=== PATIENT | male | born 1940 | race Caucasian/White ===

== ENCOUNTER → 2016-08-25 | Day surgery (SDC) | payer OTHER ==
[2016-08-17 13:20] VITALS: BMI 26.0
[~2016-08-25] VITALS: Ht 182.9 cm; Wt 88.6 kg
[~2016-08-25] MED LIST: ASPCH81X PO; ASTN; B-COTAB18 PO; CHOL1TAB42 PO; CMD5 PO; CMD75 PO; DICL1GEL12 EXT; FLUT0.15 NAE; GABA-113 PO; HYDR-5688 PO; IBUP-103 PO; KRIL1000 PO; LIDOCAINE HCL 2% 2 ML VIAL (20MG/ML) ONE; LNX125 PO; LPR25 PO; MAGN1CAP2 PO; MULT-506 PO; NRN300 PO; ONDANSETRON INJ 2 MG/ML 2 ML VIAL IV PRN; PRED-301 PO; PRED10TA PO; PROPOFOL IV EMULSION 10 MG/ML 20 ML VIAL IV ONE; QUIN1CAP5 PO; ROSU5TAB PO; TAMS0.4C38 PO
--- NOTE | 2016-08-25 09:06 | Endo History and Physical ---
History & Physical Date of Service: Aug 25, 2016. Chief Complaint: Colon polyp surveillance Referring Physician: Dr. Aponte History of Present Illness Patient with a history of colon polyps referred for a surveillance colonoscopy today. Notes intermitant ruq pain similar to the pain he had prior to his cholecystectomy many years ago. 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 REMEMBER, 08/17/16) Current Medications Reported Home Medications Medications Dose Route/Sig Max Daily Dose Days Date Category Vitamin D (Cholecalciferol) 5,000 Unit Tab 1 Tab PO QAM 08/17/16 Reported Vitamin B Complex (B-Complex Vitamins) 1 Tab Tab 1 Tab PO QAM 08/17/16 Reported Magnesium (Magnesium Oxide (Mg Supplement) 400 Mg Cap 1 Cap PO QAM 08/17/16 Reported Flonase Allergy Relief (Fluticasone Propionate (Nasal)) 50 Mcg/Act Spr 1 [place] REILLY DAILY PRN 08/17/16 Reported Astelin Nasal [place] (Azelastine Hcl) 200 Sprays/30 Ml [place] 1-2 Sprays NA BID PRN 08/17/16 Reported Quinine Sulfate 324 Mg Cap 324 Mg PO HS PRN 08/17/16 Reported Multivitamin (Multivitamins) Tab 1 Tab PO QAM 08/17/16 Reported Voltaren 1% Top Gel (Diclofenac Sodium (Topical)) 1 % Gel 1 Dose EXT DIRECTED PRN 08/17/16 Reported Digoxin 0.125 Mg Tab 1 Tab PO HS 08/17/16 Reported Aspirin Chewable (Aspirin) 81 Mg Chew 81 Mg PO QAM 08/17/16 Reported Flomax (Tamsulosin Hcl) 0.4 Mg Cap 0.4 Mg PO DAILY PRN 08/05/15 Reported Krill Oil 1 Cap Cap 1 Cap PO QAM 08/05/15 Reported Lopressor (Metoprolol Tartrate) 25 Mg Tab 25 Mg PO BID 10/16/13 Reported Vital Signs Weight (Kilograms): 88.64 Height (Feet): 6 Height (Inches): 0 Physical Exam General Appearance: no apparent distress Respiratory/Chest: Auscultation: breath sounds normal Cardiovascular: Heart Auscultation: RRR Abdomen: Inspection & Palpation: soft, RUQ tenderness Assessment and Plan Colonoscopy today for evaluation of a history of colon polyps. We have discussed the risks to include bleeding, infection, perforation, pain, and missed polyps.
[2016-08-25 09:07] VITALS: Ht 182.9 cm; Wt 88.6 kg
--- NOTE | 2016-08-25 10:07 | Discharge Instructions ---
Endoscopy Patient Instructions Date / Procedure(s) Performed Aug 25, 2016. Colonoscopy Allergy Information Coded Allergies: Sulfa Drugs (Verified Allergy, Unknown, ? REMEMBER, 08/17/16) Discharge Date / Findings Aug 25, 2016. 4 colon polyps Internal hemorrhoids Diverticulosis of the colon Medication Instructions Stopped Medication(s): ASPRIN AND KRILL OIL Reported Home Medications Medications Dose Route/Sig Max Daily Dose Days Date Category Vitamin D (Cholecalciferol) 5,000 Unit Tab 1 Tab PO QAM 08/17/16 Reported Vitamin B Complex (B-Complex Vitamins) 1 Tab Tab 1 Tab PO QAM 08/17/16 Reported Magnesium (Magnesium Oxide (Mg Supplement) 400 Mg Cap 1 Cap PO QAM 08/17/16 Reported Flonase Allergy Relief (Fluticasone Propionate (Nasal)) 50 Mcg/Act Spr 1 [place] REILLY DAILY PRN 08/17/16 Reported Astelin Nasal [place] (Azelastine Hcl) 200 Sprays/30 Ml [place] 1-2 Sprays NA BID PRN 08/17/16 Reported Quinine Sulfate 324 Mg Cap 324 Mg PO HS PRN 08/17/16 Reported Multivitamin (Multivitamins) Tab 1 Tab PO QAM 08/17/16 Reported Voltaren 1% Top Gel (Diclofenac Sodium (Topical)) 1 % Gel 1 Dose EXT DIRECTED PRN 08/17/16 Reported Digoxin 0.125 Mg Tab 1 Tab PO HS 08/17/16 Reported Aspirin Chewable (Aspirin) 81 Mg Chew 81 Mg PO QAM 08/17/16 Reported Flomax (Tamsulosin Hcl) 0.4 Mg Cap 0.4 Mg PO DAILY PRN 08/05/15 Reported Krill Oil 1 Cap Cap 1 Cap PO QAM 08/05/15 Reported Lopressor (Metoprolol Tartrate) 25 Mg Tab 25 Mg PO BID 10/16/13 Reported Provider Instructions Activity Restrictions - No exercising or heavy lifting for 24 hours. - Do not drink alcohol the day of the procedure. - Do not drive a car or operate machinery until the day after the procedure. - Do not make any important decisions or sign important papers in 24 hours after the procedure. Following Day: - Return to full activity which may include returning to work/school. Diet Start your diet with liquids and light foods (jello, soup, juice, toast). Then eat your usual diet if not nauseated. Treatment For Common After Affects For mild abdominal pain, bloating, or excessive gas: - Rest - Eat lightly - Lie on right side Follow-Up Information Await pathology results Repeat colonoscopy in 5 years CMP and abdominal ultrasound ordered for evaaluation for abdominal pain. Anesthesia Information What You Should Know You have had a procedure that required some medicine to reduce anxiety and discomfort. This treatment is called moderate sedation. After receiving the treatment, you may be sleepy, but you will be able to breathe on your own. The effects of the treatment may last for several hours. Follow these instructions along with Activity/Diet recommendations noted above: * Do NOT do anything where dizziness or clumsiness would be dangerous. * Rest quietly at home today, then you can be up and about tomorrow. * Have a responsible person stay with you the rest of today. * You may have had an I.V. today. If so, you may take the dressing off later today. Recommendations Call your doctor if: * Trouble breathing * Continuous vomiting for more than 24 hours * Temperature above 101 degrees * Severe abdominal pain or bloating * Pain not relieved by pain medicine ordered * There is increased drainage or redness from any incision * A large amount of rectal bleeding greater than 2-3 tablespoons. (If you had a polyp/s removed or have hemorrhoids, a small amount of blood - from the rectum is to be expected.) * You have any unanswered questions or concerns. IN THE EVENT OF A SERIOUS EMERGENCY, GO TO THE NEAREST EMERGENCY ROOM Your discharge instructions were prepared by provider Angy Beard. Patient Instructions Signature Page Raghavendra Gramajo Patient (or Guardian) Signature/Date: I have read and understand the instructions given to me by my caregivers. Caregiver/RN/Doctor Signature/Date: The above-named patient and/or guardian has received patient instructions on this date. + Original Patient Signature Page (only) stays with chart. Please make copy for patient.
[2016-08-25 10:36] VITALS: BP 128/66; PULSE 65; O2SAT 99
--- NOTE | 2016-08-25 11:20 | Anesthesiology Progress Note ---
Anesthesia Post Op Note Date & Time Aug 25, 2016 at 11:20 Vital Signs Pain Intensity: 0 Vital Signs Past 12 Hours Date Time Temp Pulse Resp B/P Pulse Ox O2 Delivery O2 Flow Rate FiO2 08/25/16 10:36 65 20 128/66 99 Room Air 08/25/16 10:20 65 20 158/82 98 Room Air 08/25/16 10:06 83 20 114/61 100 Room Air 08/25/16 09:18 36.4 77 20 113/71 94 Room Air Notes Mental Status: alert / awake / arousable Nausea / Vomiting: adequately controlled Pain: adequately controlled Airway Patency, RR, SpO2: stable & adequate BP & HR: stable & adequate Hydration State: stable & adequate Anesthetic Complications: no major complications apparent
--- NOTE | 2016-08-26 00:45 | GI REPORT ---
Procedure Date: 08/25/2016 9:25 AM Procedure: Colonoscopy Indications: High risk colon cancer surveillance: Personal history of colonic polyps Medicines: Monitored Anesthesia Care Complications: No immediate complications. Estimated blood loss: Minimal. Estimated Blood Loss: Estimated blood loss was minimal. Procedure: Pre-Anesthesia Assessment: - Prior to the procedure, a History and Physical was performed, and patient medications, allergies and sensitivities were reviewed. The patient's tolerance of previous anesthesia was reviewed. - The risks and benefits of the procedure and the sedation options and risks were discussed with the patient. All questions were answered and informed consent was obtained. - Patient identification and proposed procedure were verified prior to the procedure by the physician, the nurse and the at risk specialist. The procedure was verified in the procedure room. - Pre-procedure physical examination revealed no contraindications to sedation. - ASA Grade Assessment: III - A patient with severe systemic disease. - After reviewing the risks and benefits, the patient was deemed in satisfactory condition to undergo the procedure. - The anesthesia plan was to use general anesthesia. - Immediately prior to administration of medications, the patient was re-assessed for adequacy to receive sedatives. - The heart rate, respiratory rate, oxygen saturations, blood pressure, adequacy of pulmonary ventilation, and response to care were monitored throughout the procedure. - The physical status of the patient was re-assessed after the procedure. After I obtained informed consent, the scope was passed under direct vision. Throughout the procedure, the patient's blood pressure, pulse, and oxygen saturations were monitored continuously. The scope was introduced through the anus and advanced to the cecum, identified by appendiceal orifice and ileocecal valve. The colonoscopy was performed without difficulty. The patient tolerated the procedure well. The quality of the bowel preparation was good. Findings: The perianal and digital rectal examinations were normal. Pertinent negatives include normal sphincter tone. A 4 mm polyp was found in the cecum. The polyp was sessile. The polyp was removed with a cold snare. Resection and retrieval were complete. Estimated blood loss was minimal. A 10 mm polyp was found in the ascending colon. The polyp was sessile. The polyp was removed with a hot snare. Resection and retrieval were complete. Estimated blood loss was minimal. A 6 mm polyp was found in the ascending colon. The polyp was sessile. The polyp was removed with a cold snare. Resection and retrieval were complete. Estimated blood loss was minimal. A 5 mm polyp was found in the rectum. The polyp was sessile. The polyp was removed with a hot snare. The polyp was removed with a cold snare. Resection and retrieval were complete. Estimated blood loss was minimal. Internal hemorrhoids were found during retroflexion. The hemorrhoids were mild. Many medium-mouthed diverticula were found in the sigmoid colon. The exam was otherwise without abnormality. Impression: - One 4 mm polyp in the cecum, removed with a cold snare. Resected and retrieved. - One 10 mm polyp in the ascending colon, removed with a hot snare. Resected and retrieved. - One 6 mm polyp in the ascending colon, removed with a cold snare. Resected and retrieved. - One 5 mm polyp in the rectum, removed with a hot snare and removed with a cold snare. Resected and retrieved. - Internal hemorrhoids. - Mild diverticulosis in the sigmoid colon. - The examination was otherwise normal. Recommendation: - Discharge patient to home (ambulatory). - Advance diet as tolerated today. - Repeat colonoscopy in 5 years for surveillance based on pathology results. Angy Beard D.O. Angy Beard DO 08/25/2016 10:10:39 AM This report has been signed electronically. Note Initiated On: 08/25/2016 9:25 AM I attest to the content of the Intraoperative Record and orders documented therein, exceptions below
== END | disposition home or self-care (01) ==
LOC: C.GI 08:46
PROVIDERS: ATTEND Internal Medicine Gastroenterology
DX: Z12.11 Encounter for screening for malignant neoplasm of colon (principal); Z86.010 Personal history of colon polyps; D12.6 Benign neoplasm of colon, unspecified; K63.5 Polyp of colon; K64.8 Other hemorrhoids; K57.30 Diverticulosis of large intestine without perforation or abscess without bleeding; Z98.890 Other specified postprocedural states; Z88.2 Allergy status to sulfonamides; Z79.82 Long term (current) use of aspirin

== ENCOUNTER → 2016-12-02 | Outpatient (CLI) | payer OTHER ==
[~2016-12-02] MED LIST changes: -LIDOCAINE HCL 2% 2 ML VIAL (20MG/ML) ONE; -ONDANSETRON INJ 2 MG/ML 2 ML VIAL IV PRN; +PENI-73 PO; -PROPOFOL IV EMULSION 10 MG/ML 20 ML VIAL IV ONE; +WARF5TAB90 PO
--- NOTE | 2016-12-02 11:56 | DIAGNOSTIC IMAGING REPORT ---
FLUOROSCOPICALLY GUIDED RIGHT HIP INTRA-ARTICULAR STEROID INJECTION CLINICAL HISTORY: Right hip arthritis. FLUOROSCOPY TIME: 18 seconds. FINDINGS: 1 fluoroscopic image was obtained. The procedure, risks and benefits were discussed with the patient. The patient agreed to the procedure and informed written consent was obtained. The procedure was performed by Dr. Sloan following a timeout. Skin overlying the right hip joint was prepped and draped in sterile fashion and local anesthesia was achieved with 1% lidocaine. Under intermittent fluoroscopic guidance, a 3 1/2 inch 22-gauge spinal needle was directed into the right hip joint. No was made of serosanguineous fluid within the hub consistent with a right hip joint effusion. No significant fluid could be aspirated. Positioning within the joint space was confirmed with injection of 1 cc of Optiray 300. At this time, a mixture containing 2 cc of Celestone and 8 cc of 0.5% Marcaine was injected into the right hip joint. The needle was removed. The patient tolerated the procedure well and no immediate complications were evident. IMPRESSION: 1. Fluoroscopically guided right hip intra-articular injection, as described above. 2. Evidence for a right hip joint effusion which was serosanguineous. No significant fluid could be aspirated. Electronically signed by: Reagan Sloan M.D. 12/02/2016 11:54 AM Dictated Date/Time: 12/02/2016 11:51 AM
== END | disposition home or self-care (01) ==
LOC: C.RADBC 10:47
PROVIDERS: ATTEND Orthopaedic Surgery
DX: M16.11 Unilateral primary osteoarthritis, right hip (principal)

== ENCOUNTER 2016-12-18 02:01 | Inpatient (IN) | payer OTHER ==
[~2016-12-18] VITALS: Ht 185.4 cm; Wt 95.7 kg
[~2016-12-18 02:01] MED LIST changes: -CMD5 PO; -CMD75 PO; -GABA-113 PO; -HYDR-5688 PO; -IBUP-103 PO; -NRN300 PO; -PENI-73 PO; -PRED-301 PO; -PRED10TA PO; -ROSU5TAB PO; -WARF5TAB90 PO
[2016-12-18] MEDS ORDERED: ONDANSETRON INJ 2 MG/ML 2 ML VIAL IV STA (02:31)
[2016-12-18] MEDS ORDERED: SODIUM CHLORIDE 0.9% 1000ML 1,000 ML IV STA (02:31)
[2016-12-18] MEDS ORDERED: LORAZEPAM 2 MG/ML 1 ML VIAL IV STA (02:31)
[2016-12-18] MEDS ORDERED: HYDROmorphone INJ 1 MG/ML SYR IV STA (02:31)
--- NOTE | 2016-12-18 02:37 | EMERGENCY ROOM VISIT NOTE ---
History Report prepared by Juni: Gil Duncan Under the Supervision of: Dr. Alisha Alcantara M.D. First contact with patient: 02:24 Chief Complaint: LEG PAIN,LEG INJURY Stated Complaint: RT LEG PAIN History of Present Illness The patient is a 76 year old male who presents to the Emergency Room with complaints of persistent severe right leg pain that started last night. The pain radiates from the right hip, and is consistent with sciatic pain. The patient had two pain pills at 2100, but cannot recall what they were. The patient denies incontinence of bowel or bladder. He was walking around earlier in the day. The patient states that he has had many MRIs in the past. The patient had 5 lower back surgeries. His last surgery was in 1997 performed at [facility]. He no longer follows up with that group, but has seen Dr. Tariq of orthopaedics. The patient is not diabetic. He lives with his . Source of History: patient Onset: last night Position: leg (right) Symptom Intensity: severe Quality: other (consistent with sciatic pain) Timing: other (persistent) Note: Denies incontinence. Review of Systems See HPI for pertinent positives & negatives. A total of 10 systems reviewed and were otherwise negative. Past Medical & Surgical Medical Problems: (1) Gastric ulcer (2) Oth Pulmon Embolism/Infarct (3) Paroxysmal supraventricular tachycardia (4) Pulmonary embolism (5) s/p arthroscopic surgery left knee (6) s/p colonoscopy (7) s/p laparoscopic cholecystectomy (8) s/p multiple back procedures (9) s/p nasal polypectomy Family History FH: cancer FH: heart disease Social History Smoking Status: Never Smoker Alcohol Use: none Marital Status: Housing Status: lives with significant other Occupation Status: retired Current/Historical Medications Scheduled Aspirin (Aspirin Chewable), 81 MG PO QAM B-Complex Vitamins (Vitamin B Complex), 1 TAB PO QAM Cholecalciferol (Vitamin D), 5,000 UNITS PO QAM Digoxin (Digoxin), 0.125 MCG PO HS Krill Oil (Krill Oil), 1,000 MG PO QAM Magnesium Oxide (Mg Supplement (Magnesium), 400 MG PO QAM Metoprolol Tartrate (Lopressor), 25 MG PO BID Rosuvastatin Calcium (Crestor), 5 MG PO DAILY Tamsulosin Hcl (Flomax), 0.4 MG PO DAILY Scheduled PRN Azelastine Hcl (Astelin Nasal [place]), 1-2 SPRAYS NA BID PRN for CONGESTION Diclofenac Sodium (Topical) (Voltaren 1% Top Gel), 1 DOSE EXT DIRECTED PRN for Pain Fluticasone Propionate (Nasal) (Flonase Allergy Relief), 1 SPRAY REILLY DAILY PRN for PRN Quinine Sulfate (Quinine Sulfate), 324 MG PO HS PRN for LEG CRAMPING Allergies Coded Allergies: Sulfa Antibiotics (Verified Allergy, Unknown, ? REMEMBER, 12/18/16) Physical Exam Vital Signs Date Time Temp Pulse Resp B/P (MAP) Pulse Ox O2 Delivery O2 Flow Rate FiO2 12/18/16 08:15 94 Room Air 12/18/16 06:59 80 15 133/76 94 Room Air 12/18/16 06:09 78 20 148/74 98 Nasal Cannula 2.0 12/18/16 05:13 86 20 133/66 Nasal Cannula 2.0 12/18/16 04:01 83 20 160/84 96 Nasal Cannula 2.0 12/18/16 03:21 78 20 162/88 96 Nasal Cannula 2.0 12/18/16 02:04 36.7 75 16 175/92 99 Room Air Physical Exam Vital signs reviewed. General: Well-appearing male, in no significant distress. HEENT: No scleral icterus, PERRLA, neck supple. Atraumatic. Cardiovascular: Regular rate and rhythm, no extra sounds. Pulmonary: Clear to auscultation bilaterally, normal work of breathing. Abdomen: Soft, nontender, nondistended, positive bowel sounds. Musculoskeletal: Limited range of motion of the right lower extremity secondary to pain, neurovascularly intact distally. Neurologic: Patient awake alert and oriented x 3, limited exam of RLE d/t pain, LLE full strength. Cranial nerves 2 through 12 grossly intact. Skin: Warm, dry, no rash Medical Decision & Procedures ER Provider Diagnostic Interpretation: Radiology results as stated below per my review and radiologist interpretation: LUMBAR SPINE MRI HISTORY: Pain lumbar radiculopathy TECHNIQUE: Multiplanar multisequence MRI of the lumbar spine was performed without the use of contrast. COMPARISON: None. FINDINGS: For the purpose of the report the L5-S1 disc space will be located on axial image 27 of 30. Findings of laminectomies and fusions at L4 and L5. Posterior fusion S1. L1-L2: Mild posterior disc bulge. Degenerative change posterior facets. L2-L3: Moderate multifactorial narrowing of the spinal canal. Moderate narrowing of the neuroforamina. L3-L4: Postoperative changes. Moderate narrowing of the right and to lesser extent left neural foramina. Mild edema right L3 nerve root as it exits the neural foramina. L4-L5: Posterior laminectomy and fusion L5-S1: Posterior laminectomy and fusion. Moderate narrowing of the neuroforamina bilaterally. IMPRESSION: 1. Considerable degenerative and postoperative change at the entire lumbar region. 2. Moderate to rather significant multifactorial spinal stenosis at L2-L3. 3. Bulging discs L1-L2, L2-L3, 4. Narrowing of multiple neural foramina bilaterally as described. Electronically signed by: Iain Joseph M.D. 12/18/2016 6:40 AM Dictated Date/Time: 12/18/2016 6:37 AM Laboratory Results 12/18/16 02:40 Red Blood Count 5.02, Mean Corpuscular Volume 87.6, Mean Corpuscular Hemoglobin 31.1, Mean Corpuscular Hemoglobin Concent 35.5, Mean Platelet Volume 9.7, Neutrophils (%) (Auto) 73.8, Lymphocytes (%) (Auto) 12.0, Monocytes (%) (Auto) 11.3, Eosinophils (%) (Auto) 2.4, Basophils (%) (Auto) 0.1, Neutrophils # (Auto ) 5.77, Lymphocytes # (Auto) 0.94, Monocytes # (Auto) 0.88, Eosinophils # (Auto ) 0.19, Basophils # (Auto) 0.01 12/18/16 02:40 Test 12/18/16 02:40 12/18/16 06:52 White Blood Count 7.82 K/uL (4.8-10.8) Red Blood Count 5.02 M/uL (4.7-6.1) Hemoglobin 15.6 g/dL (14.0-18.0) Hematocrit 44.0 % (42-52) Mean Corpuscular Volume 87.6 fL (80-100) Mean Corpuscular Hemoglobin 31.1 pg (25-34) Mean Corpuscular Hemoglobin Concent 35.5 g/dl (32-36) Platelet Count 109 K/uL (130-400) Mean Platelet Volume 9.7 fL (7.4-10.4) Neutrophils (%) (Auto) 73.8 % Lymphocytes (%) (Auto) 12.0 % Monocytes (%) (Auto) 11.3 % Eosinophils (%) (Auto) 2.4 % Basophils (%) (Auto) 0.1 % Neutrophils # (Auto) 5.77 K/uL (1.4-6.5) Lymphocytes # (Auto) 0.94 K/uL (1.2-3.4) Monocytes # (Auto) 0.88 K/uL (0.11-0.59) Eosinophils # (Auto) 0.19 K/uL (0-0.5) Basophils # (Auto) 0.01 K/uL (0-0.2) RDW Standard Deviation 44.0 fL (36.4-46.3) RDW Coefficient of Variation 13.7 % (11.5-14.5) Immature Granulocyte % (Auto) 0.4 % Immature Granulocyte # (Auto) 0.03 K/uL (0.00-0.02) Prothrombin Time 10.5 SECONDS (9.0-12.0) Prothromb Time International Ratio 1.0 (0.9-1.1) Activated Partial Thromboplast Time 28.6 SECONDS (21.0-31.0) Partial Thromboplastin Ratio 1.1 Anion Gap 8.0 mmol/L (3-11) Est Creatinine Clear Calc Drug Dose 74.7 ml/min Estimated GFR () 89.8 Estimated GFR (Non- 77.4 BUN/Creatinine Ratio 26.2 (10-20) Calcium Level 9.0 mg/dl (8.5-10.1) Total Bilirubin 0.4 mg/dl (0.2-1) Direct Bilirubin 0.1 mg/dl (0-0.2) Aspartate Amino Transf (AST/SGOT) 19 U/L (15-37) Alanine Aminotransferase (ALT/SGPT) 27 U/L (12-78) Alkaline Phosphatase 64 U/L (45-117) Total Protein 6.3 gm/dl (6.4-8.2) Albumin 3.5 gm/dl (3.4-5.0) Urine Color YELLOW Urine Appearance CLEAR (CLEAR) Urine pH 5.5 (4.5-7.5) Urine Specific [place] 1.022 (1.000-1.030) Urine Protein NEG (NEG) Urine Glucose (UA) NEG (NEG) Urine Ketones NEG (NEG) Urine Occult Blood NEG (NEG) Urine Nitrite NEG (NEG) Urine Bilirubin NEG (NEG) Urine Urobilinogen NEG (NEG) Urine Leukocyte Esterase TRACE (NEG) Urine WBC (Auto) 1-5 /hpf (0-5) Urine RBC (Auto) 0-4 /hpf (0-4) Urine Hyaline Casts (Auto) 0 /lpf (0-5) Urine Epithelial Cells (Auto) 5-10 /lpf (0-5) Urine Bacteria (Auto) NEG (NEG) Laboratory results per my review. Medications Administered Medications (Trade) Dose Ordered Sig/Cathy Route Start Time Stop Time Status Last Admin Dose Admin Hydromorphone HCl (Dilaudid Inj) 1 mg NOW STAT IV 12/18/16 02:31 12/18/16 02:33 DC 12/18/16 02:52 1 MG Ondansetron HCl (Zofran Inj) 4 mg NOW STAT IV 12/18/16 02:31 12/18/16 02:33 DC 12/18/16 02:52 4 MG Lorazepam (Ativan Inj) 0.5 mg NOW STAT IV 12/18/16 02:31 12/18/16 02:33 DC 12/18/16 02:52 0.5 MG Sodium Chloride 1,000 ml @ 125 mls/hr Q8H STAT IV 12/18/16 02:31 12/18/16 09:45 DC 12/18/16 02:51 125 MLS/HR Dexamethasone Sodium Phosphate (Decadron Inj) 10 mg NOW ONCE IV 12/18/16 02:45 12/18/16 02:46 DC 12/18/16 02:52 10 MG Hydromorphone HCl (Dilaudid Inj) 0.5 mg NOW STAT IV 12/18/16 04:04 12/18/16 04:05 DC 12/18/16 04:08 0.5 MG Al Hydrox/Mg Hydrox/Simethicone (Maalox Max Susp) 15 ml Q4H PRN PO 12/18/16 08:30 01/17/17 08:29 12/18/16 22:11 15 ML Hydromorphone HCl (Dilaudid Inj) 1 mg Q4 PRN IV 12/18/16 08:30 01/01/17 08:29 12/19/16 03:05 1 MG Acetaminophen/ Hydrocodone Bitart ([place] 5/325 Tab) 1 tab Q4 PRN PO 12/18/16 08:30 01/01/17 08:29 12/19/16 01:27 1 TAB ED Course 0230: Past medical records reviewed. The patient was evaluated in room B9. A complete history and physical examination was performed. 0231: NSS 1000 ml @ 125 mls/hr, Ativan 0.5 mg IV, Zofran 4 mg IV, Dilaudid 1 mg IV. 0245: Decadron 10 mg IV. 0404: Dilaudid 0.5 mg IV. 0650: Discussed the case with Dr. Dang, [facility] Hospitalist. The patient will be evaluated. Medical Decision Differential diagnosis: Etiologies such as musculoskeletal, disc herniation, fracture, aortic disease, metastatic disease, cord compression, discitis, infection, renal colic, gastrointestinal, acute exacerbation of chronic back pain, sciatica, cauda equina, as well as others were entertained. Blood Pressure Screening: Patient was found to have a slightly elevated blood pressure due to circumstances. I do not believe that the patient requires hypertension monitoring. Medication Reconciliation: I attest that I have personally reviewed the patient' s current medication list. This patient was evaluated and appeared to be in significant discomfort. IV access was obtained and laboratory work was drawn. The patient was given IV Dilaudid, IV dexamethasone, IV Zofran and 0.5 mg of IV Ativan. The patient has very limited use of the right lower extremity, stating that the pain shoots down the back of his legs. Exam is limited due to his severe discomfort. He did receive 0.5 mg of IV Dilaudid prior to the MRI. The MRI of the lumbar spine was obtained and read as above. It appears the postsurgical changes are intact however the patient has significant degenerative changes including foraminal narrowing. On my reevaluation, the patient was feeling much improved. He was able to sit up at the bedside. When the patient attempts to stand he has significant pain. He does have difficulty bearing weight on the right leg or ambulating. There does not appear to be a surgical emergency. The case was discussed with the hospitalist service will evaluate the patient for further management. Patient and his are aware of the plan and agree. Consults Time Called: 0640 Consulting Physician: [facility] Returned Call: 0650 The patient will be evaluated. Impression Primary Impression: Lumbar radiculopathy Additional Impression: Intractable pain Scribe Attestation The scribe's documentation has been prepared under my direction and personally reviewed by me in its entirety. I confirm that the note above accurately reflects all work, treatment, procedures, and medical decision making performed by me. Departure Information Dispostion Being Evaluated By Hospitalist Referrals Dana Aponte M.D. (PCP) Patient Instructions My [facility] Problem Qualifiers
[2016-12-18] MEDS ORDERED: DEXAMETHASONE SOD INJ 10 MG/ML VIAL IV ONE (02:45)
[2016-12-18 02:54] LABS: BASO % 0.1 %; BASO ABS # 0.01 K/uL (0-0.2); COMPLETE YES; EOS % 2.4 %; IG% 0.4 %; LYMPH ABS # 0.94 K/uL (1.2-3.4); MEAN CELL VOLUME 87.6 fL (80-100); MEAN CORPUSCULAR HEMOGLOBIN 31.1 pg (25-34); MEAN CORPUSCULAR HGB CONC 35.5 g/dl (32-36); MEAN PLATELET VOLUME 9.7 fL (7.4-10.4); MONO % 11.3 %; NEUT % 73.8 %; PLATELET COUNT 109 K/uL (130-400); RED BLOOD COUNT 5.02 M/uL (4.7-6.1); WHITE BLOOD COUNT 7.82 K/uL (4.8-10.8)
[2016-12-18 03:11] LABS: BUN/CREATININE RATIO 26.2 (10-20); CREATININE 0.95 mg/dl (0.60-1.40); POTASSIUM 4.2 mmol/L (3.5-5.1)
[2016-12-18] MEDS ORDERED: ROSU5TAB PO (03:17)
[2016-12-18] MEDS ORDERED: HYDROmorphone INJ 0.5 MG/0.5 ML SYR IV STA (04:04)
--- NOTE | 2016-12-18 06:42 | DIAGNOSTIC IMAGING REPORT ---
LUMBAR SPINE MRI HISTORY: Pain lumbar radiculopathy TECHNIQUE: Multiplanar multisequence MRI of the lumbar spine was performed without the use of contrast. COMPARISON: None. FINDINGS: For the purpose of the report the L5-S1 disc space will be located on axial image 27 of 30. Findings of laminectomies and fusions at L4 and L5. Posterior fusion S1. L1-L2: Mild posterior disc bulge. Degenerative change posterior facets. L2-L3: Moderate multifactorial narrowing of the spinal canal. Moderate narrowing of the neuroforamina. L3-L4: Postoperative changes. Moderate narrowing of the right and to lesser extent left neural foramina. Mild edema right L3 nerve root as it exits the neural foramina. L4-L5: Posterior laminectomy and fusion L5-S1: Posterior laminectomy and fusion. Moderate narrowing of the neuroforamina bilaterally. IMPRESSION: 1. Considerable degenerative and postoperative change at the entire lumbar region. 2. Moderate to rather significant multifactorial spinal stenosis at L2-L3. 3. Bulging discs L1-L2, L2-L3, 4. Narrowing of multiple neural foramina bilaterally as described. Electronically signed by: Iain Joseph M.D. 12/18/2016 6:40 AM Dictated Date/Time: 12/18/2016 6:37 AM
[2016-12-18 07:15] LABS: URINE APPEARANCE CLEAR (CLEAR); URINE BILIRUBIN NEG (NEG); URINE COLOR YELLOW; URINE NITRITE NEG (NEG); URINE PH 5.5 (4.5-7.5); URINE SPECIFIC GRAVITY 1.022 (1.000-1.030); UROBILINOGEN NEG (NEG); ZZUR CULT IF INDIC CLEAN CATCH NO
[2016-12-18 07:27] LABS: MANUAL MICROSCOPIC REQUIRED? NO; REVIEW REQ? NO
[2016-12-18 08:15] VITALS: O2SAT 94; Ht 185.4 cm; Wt 95.7 kg
[2016-12-18] MEDS ORDERED: DICLOFENAC SOD 1% GEL 100 GM TUBE EXT PRN (08:30)
[2016-12-18] MEDS ORDERED: MAGNESIUM HYDROXIDE SUSP 30 ML UDC PO PRN (08:30)
[2016-12-18] MEDS ORDERED: ONDANSETRON INJ 2 MG/ML 2 ML VIAL IV PRN (08:30)
[2016-12-18] MEDS ORDERED: ACETAMINOPHEN 325 MG TAB PO PRN (08:30)
[2016-12-18] MEDS ORDERED: ALUMINUM/MAGNESIUM/SIMETH (MAALOX MAX) 30 ML UDC PO PRN (08:30)
[2016-12-18] MEDS ORDERED: QUINine SULFATE CAP 324 MG CAP PO PRN (08:30)
--- NOTE | 2016-12-18 08:46 | DIAGNOSTIC IMAGING REPORT ---
RIGHT HIP UNILATERAL 2 VIEWS CLINICAL HISTORY: R hip pain, recent intra-articular injection; arthritis Right COMPARISON: None. DISCUSSION: Considerable degenerative change. No evidence for acetabular protrusion. Moderate peripheral reactive osteophytic change. There is no evidence for soft tissue swelling. IMPRESSION: Degenerative change. No acute process. Electronically signed by: Iain Joseph M.D. 12/18/2016 8:45 AM Dictated Date/Time: 12/18/2016 8:42 AM
--- NOTE | 2016-12-18 09:00 | History and Physical ---
History & Physical Date & Time of Service: Dec 18, 2016 at 08:30 Chief Complaint: Rt Leg Pain Primary Care Physician: Dana Aponte M.D. 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 He states that on December 02, he received an intra-articular injection to the R hip due to the osteoarthritis. He has been following with [facility] for this R hip issue. He tells me that he was doing some manual labor at home, including lifting, etc. prior to arrival which may have worsened his pain. He has also been dealing with a chronic bilateral knee problems due to osteoarthritis - he uses Voltaren gel for this pain. He has a history of five lumbar surgeries, last one in 1997 - which was a fusion. Currently denies any back pain, but the R sided pain shoots down his leg, similar to when he had sciatic pain. Currently, improved after medication. Denies fevers/chills, nausea/vomiting, chest pain/shortness of breath. 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 (7) s/p laparoscopic cholecystectomy Permanent Comment: gallstone pancreatitis Status: Resolved (8) s/p multiple back procedures Status: Resolved (9) s/p nasal polypectomy Status: Resolved Family History FH: cancer FH: heart disease Social History Smoking Status: Never Smoker Marital Status: Housing status: lives with family Occupational Status: retired Immunizations History of Influenza Vaccine: No History of Tetanus Vaccine?: Yes History of Pneumococcal: No History of Hepatitis B Vaccine: Unknown Multi-Drug Resistant Organisms History of MDRO: No Allergies Coded Allergies: Sulfa Drugs (Verified Allergy, Unknown, ? REMEMBER, 08/17/16) Home Medications Scheduled Aspirin (Aspirin Chewable), 81 MG PO QAM B-Complex Vitamins (Vitamin B Complex), 1 TAB PO QAM Cholecalciferol (Vitamin D), 5,000 UNITS PO QAM Digoxin (Digoxin), 0.125 MCG PO HS Krill Oil (Krill Oil), 1,000 MG PO QAM Magnesium Oxide (Mg Supplement (Magnesium), 400 MG PO QAM Metoprolol Tartrate (Lopressor), 25 MG PO BID Rosuvastatin Calcium (Crestor), 5 MG PO DAILY Tamsulosin Hcl (Flomax), 0.4 MG PO DAILY Scheduled PRN Azelastine Hcl (Astelin Nasal [place]), 1-2 SPRAYS NA BID PRN for CONGESTION Diclofenac Sodium (Topical) (Voltaren 1% Top Gel), 1 DOSE EXT DIRECTED PRN for Pain Fluticasone Propionate (Nasal) (Flonase Allergy Relief), 1 SPRAY REILLY DAILY PRN for PRN Quinine Sulfate (Quinine Sulfate), 324 MG PO HS PRN for LEG CRAMPING Review of Systems Constitutional: No fever, No chills, No sweats Respiratory: No cough, No sputum, No wheezing, No shortness of breath, No dyspnea on exertion, No dyspnea at rest, No hemoptysis Cardiovascular: No chest pain, No edema, No palpitations Abdomen: No pain, No nausea, No vomiting, No diarrhea, No constipation, No GI bleeding Musculoskeletal: + joint pain (R hip, b/l knees), + muscle pain, No swelling, No calf pain Genitourinary - Male: + urinary frequency, + urinary urgency, + urinary hesitancy, + urinary retention, + urinary incontinence, No hematuria, No dysuria Neurologic: + weakness, + balance problems, No memory loss, No paralysis, No numbness/tingling, No vertigo Psychiatric: No depression symptoms, No anxiety, No insomnia Endocrine: No fatigue Hematologic / Lymphatic: No abnormal bleeding/bruising Integumentary: No rash Allergic / Immunologic: No environmental allergies, No seasonal allergies Physical Exam Vital Signs Date Time Temp Pulse Resp B/P (MAP) Pulse Ox O2 Delivery O2 Flow Rate FiO2 12/18/16 06:59 80 15 133/76 94 Room Air 12/18/16 06:09 78 20 148/74 98 Nasal Cannula 2.0 12/18/16 05:13 86 20 133/66 Nasal Cannula 2.0 12/18/16 04:01 83 20 160/84 96 Nasal Cannula 2.0 12/18/16 03:21 78 20 162/88 96 Nasal Cannula 2.0 12/18/16 02:04 36.7 75 16 175/92 99 Room Air General Appearance: + mild distress (secondary to pain) Head: normocephalic, atraumatic Eyes: normal inspection ENT: hearing grossly normal Neck: supple Respiratory/Chest: chest non-tender, lungs clear, normal breath sounds, no respiratory distress, no accessory muscle use Cardiovascular: regular rate, rhythm, no edema, no gallop, no JVD, no murmur, normal peripheral pulses Abdomen/GI: normal bowel sounds, non tender, soft Back: no muscle spasm Extremities/Musculoskelatal: normal capillary refill, no pedal edema Neurologic/Psych: no motor/sensory deficits, alert, normal mood/affect Skin: normal color Lymphatic: no adenopathy Diagnostics Laboratory Results Results Past 24 Hours Test 12/18/16 02:40 12/18/16 06:52 Range/Units White Blood Count 7.82 4.8-10.8 K/uL Red Blood Count 5.02 4.7-6.1 M/uL Hemoglobin 15.6 14.0-18.0 g/dL Hematocrit 44.0 42-52 % Mean Corpuscular Volume 87.6 80-100 fL Mean Corpuscular Hemoglobin 31.1 25-34 pg Mean Corpuscular Hemoglobin Concent 35.5 32-36 g/dl Platelet Count 109 130-400 K/uL Mean Platelet Volume 9.7 7.4-10.4 fL Neutrophils (%) (Auto) 73.8 % Lymphocytes (%) (Auto) 12.0 % Monocytes (%) (Auto) 11.3 % Eosinophils (%) (Auto) 2.4 % Basophils (%) (Auto) 0.1 % Neutrophils # (Auto) 5.77 1.4-6.5 K/uL Lymphocytes # (Auto) 0.94 1.2-3.4 K/uL Monocytes # (Auto) 0.88 0.11-0.59 K/uL Eosinophils # (Auto) 0.19 0-0.5 K/uL Basophils # (Auto) 0.01 0-0.2 K/uL RDW Standard Deviation 44.0 36.4-46.3 fL RDW Coefficient of Variation 13.7 11.5-14.5 % Immature Granulocyte % (Auto) 0.4 % Immature Granulocyte # (Auto) 0.03 0.00-0.02 K/uL Sodium Level 139 136-145 mmol/L Potassium Level 4.2 3.5-5.1 mmol/L Chloride Level 107 98-107 mmol/L Carbon Dioxide Level 24 21-32 mmol/L Anion Gap 8.0 3-11 mmol/L Blood Urea Nitrogen 25 7-18 mg/dl Creatinine 0.95 0.60-1.40 mg/dl Est Creatinine Clear Calc Drug Dose 74.7 ml/min Estimated GFR () 89.8 Estimated GFR (Non- 77.4 BUN/Creatinine Ratio 26.2 10-20 Random Glucose 121 70-99 mg/dl Calcium Level 9.0 8.5-10.1 mg/dl Total Bilirubin 0.4 0.2-1 mg/dl Direct Bilirubin 0.1 0-0.2 mg/dl Aspartate Amino Transf (AST/SGOT) 19 15-37 U/L Alanine Aminotransferase (ALT/SGPT) 27 12-78 U/L Alkaline Phosphatase 64 45-117 U/L Total Protein 6.3 6.4-8.2 gm/dl Albumin 3.5 3.4-5.0 gm/dl Urine Color YELLOW Urine Appearance CLEAR CLEAR Urine pH 5.5 4.5-7.5 Urine Specific [place] 1.022 1.000-1.030 Urine Protein NEG NEG Urine Glucose (UA) NEG NEG Urine Ketones NEG NEG Urine Occult Blood NEG NEG Urine Nitrite NEG NEG Urine Bilirubin NEG NEG Urine Urobilinogen NEG NEG Urine Leukocyte Esterase TRACE NEG Urine WBC (Auto) 1-5 0-5 /hpf Urine RBC (Auto) 0-4 0-4 /hpf Urine Hyaline Casts (Auto) 0 0-5 /lpf Urine Epithelial Cells (Auto) 5-10 0-5 /lpf Urine Bacteria (Auto) NEG NEG Diagnostic Radiology LUMBAR SPINE MRI HISTORY: Pain lumbar radiculopathy TECHNIQUE: Multiplanar multisequence MRI of the lumbar spine was performed without the use of contrast. COMPARISON: None. FINDINGS: For the purpose of the report the L5-S1 disc space will be located on axial image of 30. Findings of laminectomies and fusions at L4 and L5. Posterior fusion S1. L1-L2: Mild posterior disc bulge. Degenerative change posterior facets. L2-L3: Moderate multifactorial narrowing of the spinal canal. Moderate narrowing of the neuroforamina. L3-L4: Postoperative changes. Moderate narrowing of the right and to lesser extent left neural foramina. Mild edema right L3 nerve root as it exits the neural foramina. L4-L5: Posterior laminectomy and fusion L5-S1: Posterior laminectomy and fusion. Moderate narrowing of the neuroforamina bilaterally. IMPRESSION: 1. Considerable degenerative and postoperative change at the entire lumbar region. 2. Moderate to rather significant multifactorial spinal stenosis at L2-L3. 3. Bulging discs L1-L2, L2-L3, 4. Narrowing of multiple neural foramina bilaterally as described. Impression Assessment and Plan This is a 76 year old male with a PMH of multiple lumbar surgeries (last one in 1997), supraventricular tachycardia controlled with medications, aortic root dilatation - stable, incomplete RBBB, dyslipidemia, BPH, 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 presents with R hip pain R Hip Pain possible Sciatic pain? 12/18 Lumbar MRI suggests Moderate to rather significant multifactorial spinal stenosis at L2-L3 Bulging discs L1-L2, L2-L3 He's had multiple surgeries on his lumbar spine, the last one in 1997 Received dexamethasone and Dilaudid in the ER with some improvement plan for today is to obtain a dedicated R Hip radiograph; recent intra- articular injection consult spine ortho due to his multi-level stenosis/herniation PT/OT ordered Dilaudid, Hydrocodone and Toradol PRN if pain does not improve, may need pain management consultation Supraventricular Tachycardia controlled with b-[place] Aortic Root Dilatation stable, as per recent echo Dyslipidemia continue Crestor 5mg - has had issues with myalgias, but tolerating this dose well DVT ppx subq heparin FULL CODE VTE Prophylaxis VTE Risk Assessment Done? Y/N: Yes Risk Level: High
[2016-12-18] MEDS ORDERED: POLYETHYLENE (MIRALAX) 17 GM PACK PO PRN (09:15)
[2016-12-18 09:30] VITALS: BP 178/92; PULSE 98; TEMP 37.1; O2SAT 97
[2016-12-18] MEDS: HYDROmorphone INJ 1 MG/ML SYR IV PRN ×4 (09:35→22:12)
[2016-12-18 10:03] LABS: PARTIAL THROMBOPLASTIN RATIO 1.1; PROTHROMBIN TIME (PATIENT) 10.5 SECONDS (9.0-12.0)
[2016-12-18] MEDS: ROSUVASTATIN CALCIUM 10 MG TAB PO SCH (11:29)
[2016-12-18] MEDS: METOPROLOL TARTRATE 25 MG TAB PO SCH ×2 (11:30→21:16)
[2016-12-18] MEDS: ASPIRIN 81 MG CHEW PO SCH (11:30)
[2016-12-18] MEDS: TAMSULOSIN HCL 0.4 MG CAP PO SCH (11:30)
[2016-12-18] MEDS: HEPARIN SOD 5000 UNIT/0.5 ML CARP SQ SCH ×2 (13:50→22:25)
[2016-12-18] MEDS ORDERED: PNEUMOCOCCAL POLYSACCHARIDES 25 MCG/0.5 ML VIAL/SYR IM. ONE (14:00)
[2016-12-18] MEDS ORDERED: PNEUMOCOCCAL ADMINISTRATION CHARGE ONE (14:00)
[2016-12-18 15:03] VITALS: BP 128/70; PULSE 81; TEMP 37.1; O2SAT 93
[2016-12-18] MEDS: DIGOXIN 0.125 MG TAB PO SCH (15:50)
[2016-12-18] MEDS: KETOROLAC TROMETHAMINE 15 MG/ML VIAL IV. PRN ×2 (16:01→22:12)
--- NOTE | 2016-12-18 17:58 | ORTHOPEDIC CONSULTATION ---
DATE OF CONSULTATION: 12/18/2016 HISTORY OF PRESENT ILLNESS: Mr. Gramajo is a 76-year-old gentleman who was admitted by medicine for intractable right leg pain. He is a patient of Dr. Rodriguez and Dr. [facility]. He had been having some troubles with his lower back and right hip, leg area. About 2 weeks ago approximately, he had a cortisone injection into his right hip which gave him some improvement. This was approximately December 02. He was doing some manual labor at home which substantially increased his pain prompting him to come to the hospital. He has not had a fall. He does have some numbness in his leg, it is not clear whether this is new or old. He has had multiple back surgeries, the last one done approximately 20 years ago and some of this pain he describes as being similar to what he experienced at that time. PAST MEDICAL AND SURGICAL HISTORY: Noted and reviewed on his chart. He has a history of gastric ulcers, pulmonary embolism, heart arrhythmia. He has had multiple surgeries on his back and also has problems with his knees as well as his right hip. PHYSICAL EXAMINATION: Shows that he has absent reflexes at the knee and ankle which are equal bilaterally. Clonus is not present. He can do a leg raise on the left. He can bend his left hip up to 90 degrees. He has no internal rotation but he does have maybe 20 degrees of external rotation. The left leg is nontender. He has 1+ posterior tib pulses. He reports intact sensation in both legs. He does note that the pain in the right leg has gone down below the thigh area into the upper calf. When asked to localize the discomfort, it appears this is mostly in the anterolateral right thigh area. The right knee and hip were held in about 30 degrees of flexion and he cannot tolerate extension of the right hip or knee. He does have some tenderness to palpation of the right knee. His motor strength is 5/5. I can only flex the right hip and knee to about 60 degrees. With the hip flexed and the knee extended he does not appear to have any radicular type symptoms or radicular pain. There is some mild tenderness over the right hip trochanteric bursa. There is significant pain with rotatory movements of the right hip. Rotatory movements of the right hip are limited and seem to provoke pain. MRI of the lumbar spine is noted and reviewed. The report is noted. He has hardware intact and some degenerative changes and spinal stenosis evident. X-ray of the right hip 2-views show moderate degenerative change with osteophyte formation and some degree of joint space narrowing. There was no fracture of the right hip. He is afebrile. His vital signs are stable. His white blood cell count is within normal limits. His INR is normal. IMPRESSION: Right leg pain, right hip arthritis, multiple lumbar spine surgeries. PLAN: I think the SubQ heparin is appropriate for DVT prophylaxis. He can be up as tolerated with assistance. He can have PT and OT. I think it would be helpful for him to walk with a cane or walker as is appropriate. I will inform Dr. Blake of the consult tomorrow so that he can follow up. I think he probably overworked his right hip and aggravated the arthritis that he has. It sounds like this was being worked up and treated as an outpatient with the injection. There could be an element of referred pain from the lumbar spine present, but today this seems more likely hip in nature. Pain medication as needed.
[2016-12-18] MEDS: HYDROCODONE/ACETAMOPHEN 5/325MG TAB PO PRN (20:12)
[2016-12-18] MEDS ORDERED: DIGOXIN 0.125 MG TAB PO SCH (21:00)
[2016-12-18 21:13] VITALS: BP 118/68; PULSE 60
[2016-12-18 23:00] VITALS: BP 130/66; PULSE 64; TEMP 37; O2SAT 97
[2016-12-19] MEDS: HYDROCODONE/ACETAMOPHEN 5/325MG TAB PO PRN ×4 (01:27→21:15)
[2016-12-19] MEDS: HYDROmorphone INJ 1 MG/ML SYR IV PRN ×2 (03:05→07:00)
[2016-12-19] MEDS: KETOROLAC TROMETHAMINE 15 MG/ML VIAL IV. PRN ×2 (04:39→23:20)
[2016-12-19 06:05] LABS: HEMATOCRIT 42.4 % (42-52); MEAN CELL VOLUME 88.7 fL (80-100); MEAN CORPUSCULAR HEMOGLOBIN 31.2 pg (25-34); MEAN CORPUSCULAR HGB CONC 35.1 g/dl (32-36); MEAN PLATELET VOLUME 10.1 fL (7.4-10.4); PLATELET COUNT 122 K/uL (130-400); RED BLOOD COUNT 4.78 M/uL (4.7-6.1); WHITE BLOOD COUNT 9.98 K/uL (4.8-10.8)
[2016-12-19 06:14] LABS: PROTHROMBIN TIME (PATIENT) 10.4 SECONDS (9.0-12.0)
[2016-12-19 06:44] LABS: BUN/CREATININE RATIO 30.3 (10-20); CALCIUM 8.7 mg/dl (8.5-10.1); CREATININE 1.2 mg/dl (0.60-1.40); MAGNESIUM 2.7 mg/dl (1.8-2.4); POTASSIUM 4.5 mmol/L (3.5-5.1)
[2016-12-19] MEDS: HEPARIN SOD 5000 UNIT/0.5 ML CARP SQ SCH ×2 (07:04→13:51)
[2016-12-19 07:35] VITALS: BP 116/64; PULSE 59; TEMP 36.7; O2SAT 97
[2016-12-19] MEDS: METOPROLOL TARTRATE 25 MG TAB PO SCH ×2 (09:00→21:14)
[2016-12-19 09:05] VITALS: BP 114/59; PULSE 59
[2016-12-19] MEDS: TAMSULOSIN HCL 0.4 MG CAP PO SCH (09:05)
[2016-12-19] MEDS: ROSUVASTATIN CALCIUM 10 MG TAB PO SCH (09:06)
[2016-12-19] MEDS: ASPIRIN 81 MG CHEW PO SCH (09:06)
[2016-12-19 10:22] VITALS: BP 139/81; PULSE 67; O2SAT 97
--- NOTE | 2016-12-19 10:57 | PROGRESS NOTE ---
DATE: 12/19/2016 DATE: 12/19/2016. CHIEF COMPLAINT: Right lower extremity difficulty, pain and weakness. HISTORY OF PRESENT ILLNESS: Mr. Gramajo is a delightful gentleman. I am meeting him for the first time. He was seen at [facility] for right hip issue, injection was provided. The pain evidently escalated over the last several days leading to an appropriate admission. He was in the hospital at [facility] and was admitted because of incapacitating pain including weakness, it is right-sided, it is buttock, down his leg, form of sciatica, also femoral nerve root involvement I believe as he has quadriceps weakness. PAST MEDICAL HISTORY: Positive for gastric ulcer, SVT, pulmonary emboli in the past. PAST SURGICAL HISTORY: Laparoscopic cholecystectomy, multiple back surgeries, nasal polypectomy. FAMILY HISTORY: Cardiac disease. SOCIAL HISTORY: He is a nonsmoker, and lives with family, retired. MEDICATIONS: Reviewed. REVIEW OF SYSTEMS: Denies any blurred vision, double vision, tinnitus, vertigo. No chest pain, no malaise, no cancer history. OBJECTIVE: GENERAL: He is alert, oriented gentleman. He is sitting. On examination today, he is moderately pain controlled. We did get him up to stand. SKIN: Intact. He has well-healed incision. There is no zoster evidence posterior structures. MUSCULOSKELETAL: He has good plantar flexion, dorsiflexion, slight weakness of quadriceps. Function and reflex examination satisfactory. Images reviewed. He does seem to have some stenosis at 2-3 level lumbar spine above a prior fusion. At the 5 we looked at each and every image as best of our ability. There is some stenosis at lower levels and multifactorial at 2-3 seems to be the dominant and some of the nerve roots do seem to be collapsed down upon. IMPRESSION: I think the hip is negative with flexion, extension and rotation. In other words, I think his pain is all coming from the lumbar spine. It seems S1 involvement on the physical examination, stenosis is higher up at the 2-3 level. DISPOSITION: We will try to treat this medically not surgically. We placed him on some Decadron here today. We are also going to get pain management to see him, possible some injections to help quiet down his pain. He should be up with a walker with physical therapy. Will also order some plain x-rays if they were not performed. Will follow closely with Mr. Gramajo.
--- NOTE | 2016-12-19 12:32 | Progress Note ---
Subjective Date of Service: Dec 19, 2016. Subjective Pt evaluation today including: conversation w/ patient, conversation w/ family , physical exam, lab review, review of studies, conversation w/ jd edwards consultant, review of inpatient medication list Saw/examined the patient in room 306 Still has the R LE weakness; pain shooting down the back of his leg Problem List Medical Problems: (1) Intractable pain Status: Acute (2) Lumbar radiculopathy Status: Acute Review of Systems Constitutional: No fever, No chills Respiratory: No shortness of breath Cardiac: No chest pain Abdomen: No pain, No nausea, No vomiting, No diarrhea Musculoskeletal: + joint pain (R hip, back, R LE, R LE weakness), + muscle pain Medications Current Inpatient Medications Medications (Trade) Dose Ordered Sig/Cathy Route Start Time Stop Time Status Last Admin Dose Admin Heparin Sodium (Porcine) (Heparin Sq 5000 Unit/0.5ml) 5,000 unit Q8 SQ 12/18/16 14:00 01/17/17 13:59 12/19/16 07:04 5,000 UNIT Acetaminophen (Tylenol Tab) 650 mg Q4H PRN PO 12/18/16 08:30 01/17/17 08:29 12/19/16 05:30 650 MG Al Hydrox/Mg Hydrox/Simethicone (Maalox Max Susp) 15 ml Q4H PRN PO 12/18/16 08:30 01/17/17 08:29 12/18/16 22:11 15 ML Magnesium Hydroxide (Milk Of Magnesia Susp) 30 ml Q6H PRN PO 12/18/16 08:30 01/17/17 08:29 12/19/16 07:18 30 ML Polyethylene (Miralax Powder Packet) 17 gm DAILY PRN PO 12/18/16 09:15 01/17/17 09:14 Ondansetron HCl (Zofran Inj) 4 mg Q6H PRN IV 12/18/16 08:30 01/17/17 08:29 Aspirin (Aspirin Chew) 81 mg QAM PO 12/18/16 09:00 01/17/17 08:59 12/19/16 09:06 81 MG Diclofenac Sodium (Voltaren 1% Top Gel) 1 appln BID PRN EXT 12/18/16 08:30 01/17/17 08:29 Metoprolol Tartrate (Lopressor Tab) 25 mg BID PO 12/18/16 09:00 01/17/17 08:59 12/18/16 21:16 25 MG Rosuvastatin Calcium (Crestor Tab) 5 mg DAILY PO 12/18/16 09:00 01/17/17 08:59 12/19/16 09:06 5 MG Tamsulosin HCl (Flomax Cap) 0.4 mg DAILY PO 12/18/16 09:00 01/17/17 08:59 12/19/16 09:05 0.4 MG Hydromorphone HCl (Dilaudid Inj) 1 mg Q4 PRN IV 12/18/16 08:30 01/01/17 08:29 12/19/16 03:05 1 MG Acetaminophen/ Hydrocodone Bitart ([place] 5/325 Tab) 1 tab Q4 PRN PO 12/18/16 08:30 01/01/17 08:29 12/19/16 05:30 1 TAB Ketorolac Tromethamine (Toradol Inj) 15 mg Q6H PRN IV. 12/18/16 09:00 12/23/16 08:59 12/19/16 04:39 15 MG Digoxin (Lanoxin Tab) 0.125 mg DAILY@1600 PO 12/18/16 16:00 01/17/17 15:59 12/18/16 15:50 0.125 MG Prednisone (PredniSONE TAB) 5 mg ACHS PO 12/19/16 12:00 01/18/17 11:59 Objective Vital Signs Date Time Temp Pulse Resp B/P (MAP) Pulse Ox O2 Delivery O2 Flow Rate FiO2 12/19/16 10:22 67 97 12/19/16 09:05 59 114/59 (77) 12/19/16 07:35 36.7 59 18 116/64 (81) 97 Room Air 12/19/16 07:11 Room Air 12/18/16 23:30 Room Air 12/18/16 23:00 37.0 64 14 130/66 (87) 97 Room Air 12/18/16 21:13 60 118/68 (85) 12/18/16 15:50 Room Air 12/18/16 15:50 78 12/18/16 15:03 37.1 81 16 128/70 (89) 93 Room Air Physical Exam General Appearance: + mild distress (secondary to pain) Respiratory/Chest: no respiratory distress, no accessory muscle use Extremities: normal inspection, no pedal edema Neurologic/Psychiatric: alert, normal mood/affect Laboratory Results Last 24 Hours Test 12/19/16 05:17 White Blood Count 9.98 K/uL Red Blood Count 4.78 M/uL Hemoglobin 14.9 g/dL Hematocrit 42.4 % Mean Corpuscular Volume 88.7 fL Mean Corpuscular Hemoglobin 31.2 pg Mean Corpuscular Hemoglobin Concent 35.1 g/dl RDW Standard Deviation 44.3 fL RDW Coefficient of Variation 13.7 % Platelet Count 122 K/uL Mean Platelet Volume 10.1 fL Prothrombin Time 10.4 SECONDS Prothromb Time International Ratio 1.0 Sodium Level 140 mmol/L Potassium Level 4.5 mmol/L Chloride Level 105 mmol/L Carbon Dioxide Level 26 mmol/L Anion Gap 9.0 mmol/L Blood Urea Nitrogen 36 mg/dl Creatinine 1.20 mg/dl Est Creatinine Clear Calc Drug Dose 59.2 ml/min Estimated GFR () 67.7 Estimated GFR (Non- 58.4 BUN/Creatinine Ratio 30.3 Random Glucose 96 mg/dl Calcium Level 8.7 mg/dl Magnesium Level 2.7 mg/dl Assessment and Plan This is a 76 year old male with a PMH of multiple lumbar surgeries (last one in 1997), supraventricular tachycardia controlled with medications, aortic root dilatation - stable, incomplete RBBB, dyslipidemia, BPH, 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 presents with R hip pain R Hip Pain Lumbar Stenosis 12/19 multiple issues going on with this patient appreciate ortho input seems to suggest Lumbar nerve root pain, causing R LE pain/weakness PT/OT with walker pain management consulted for further input; possible injection 12/18 Lumbar MRI suggests Moderate to rather significant multifactorial spinal stenosis at L2-L3 Bulging discs L1-L2, L2-L3 He's had multiple surgeries on his lumbar spine, the last one in 1997 Received dexamethasone and Dilaudid in the ER with some improvement plan for today is to obtain a dedicated R Hip radiograph; recent intra- articular injection consult spine ortho due to his multi-level stenosis/herniation PT/OT ordered Dilaudid, Hydrocodone and Toradol PRN if pain does not improve, may need pain management consultation Supraventricular Tachycardia controlled with b-tennille Aortic Root Dilatation stable, as per recent echo Dyslipidemia continue Crestor 5mg - has had issues with myalgias, but tolerating this dose well DVT ppx subq heparin FULL CODE
--- NOTE | 2016-12-19 13:16 | DIAGNOSTIC IMAGING REPORT ---
LUMBAR SPINE 2 OR 3 VIEWS CLINICAL HISTORY: pain pain COMPARISON STUDY: FINDINGS: Considerable degenerative change throughout the entire lumbar region. Findings consistent with posterior laminectomy and fusion from L4 through S1. Hardware is intact. There is degenerative disc changes throughout. IMPRESSION: Degenerative and postoperative change. Findings consistent with a posterior laminectomy and fusion from L4 through S1 with alignment anatomic. Electronically signed by: Iain Joseph M.D. 12/19/2016 1:14 PM Dictated Date/Time: 12/19/2016 1:09 PM
--- NOTE | 2016-12-19 14:09 | Pain Management Consultation ---
Pain Management Consultation Date of Consultation Dec 19, 2016. Reason for Consultation Right lower extremity pain History I saw 76-year-old Mr. Raghavendra Gramajo at the [facility] today. He presented through the emergency room with 50% axial 50% right lower extremity lumbar radicular symptoms not past the knee. Reports that the symptoms presented after doing an increased amount of manual labor over the weekend. His past surgical history significant for lumbar spine surgical intervention 5 culminating with a L4 through S1 fusion in 1997. He reports that since 1997 prior to this weekend he has had limited lumbar spine pain and no lumbar radicular symptoms. He reports that his pain is sharp and shooting right lower extremity only along the quadricep region. He denies any bowel or bladder incontinence, motor weakness, foot drop, falls. He reports that pain ranges between 3 and 7 out of 10 worst with activity better with rest. He is utilize hydrocodone with moderate efficacy over the last 24 hours. He had one session of physical therapy with some improvement today. The patient is unsure if he is ever had epidural steroid injections in the past or gabapentin dosing prior to his most recent surgical intervention of his lumbar spine in 1997. Pain Location 1 - 2 - Past Medical/Surgical History (1) Paroxysmal atrial tachycardia (2) Lumbar radiculopathy (3) Intractable pain (4) s/p multiple back procedures (5) Paroxysmal supraventricular tachycardia (6) Dyslipidemia (7) Chest pain (8) s/p arthroscopic surgery left knee (9) s/p colonoscopy (10) Gastric ulcer (11) s/p laparoscopic cholecystectomy (12) Pulmonary embolism (13) s/p nasal polypectomy (14) Fall Family History FH: cancer FH: heart disease Family Hx Review: history personally reviewed by me Social / Work History Drug Use: none Marital Status: Housing Status: lives with family Occupation: retired Allergies Coded Allergies: Sulfa Antibiotics (Verified Allergy, Unknown, ? REMEMBER, 12/18/16) Medications Current Inpatient Medications Medications (Trade) Dose Ordered Sig/Cathy Route Start Time Stop Time Status Last Admin Dose Admin Heparin Sodium (Porcine) (Heparin Sq 5000 Unit/0.5ml) 5,000 unit Q8 SQ 12/18/16 14:00 01/17/17 13:59 12/19/16 07:04 5,000 UNIT Acetaminophen (Tylenol Tab) 650 mg Q4H PRN PO 12/18/16 08:30 01/17/17 08:29 12/19/16 05:30 650 MG Al Hydrox/Mg Hydrox/Simethicone (Maalox Max Susp) 15 ml Q4H PRN PO 12/18/16 08:30 01/17/17 08:29 12/18/16 22:11 15 ML Magnesium Hydroxide (Milk Of Magnesia Susp) 30 ml Q6H PRN PO 12/18/16 08:30 01/17/17 08:29 12/19/16 07:18 30 ML Polyethylene (Miralax Powder Packet) 17 gm DAILY PRN PO 12/18/16 09:15 01/17/17 09:14 Ondansetron HCl (Zofran Inj) 4 mg Q6H PRN IV 12/18/16 08:30 01/17/17 08:29 Aspirin (Aspirin Chew) 81 mg QAM PO 12/18/16 09:00 01/17/17 08:59 12/19/16 09:06 81 MG Diclofenac Sodium (Voltaren 1% Top Gel) 1 appln BID PRN EXT 12/18/16 08:30 01/17/17 08:29 Metoprolol Tartrate (Lopressor Tab) 25 mg BID PO 12/18/16 09:00 01/17/17 08:59 12/18/16 21:16 25 MG Rosuvastatin Calcium (Crestor Tab) 5 mg DAILY PO 12/18/16 09:00 01/17/17 08:59 12/19/16 09:06 5 MG Tamsulosin HCl (Flomax Cap) 0.4 mg DAILY PO 12/18/16 09:00 01/17/17 08:59 12/19/16 09:05 0.4 MG Hydromorphone HCl (Dilaudid Inj) 1 mg Q4 PRN IV 12/18/16 08:30 01/01/17 08:29 12/19/16 03:05 1 MG Acetaminophen/ Hydrocodone Bitart ([place] 5/325 Tab) 1 tab Q4 PRN PO 12/18/16 08:30 01/01/17 08:29 12/19/16 13:57 1 TAB Ketorolac Tromethamine (Toradol Inj) 15 mg Q6H PRN IV. 12/18/16 09:00 12/23/16 08:59 12/19/16 04:39 15 MG Digoxin (Lanoxin Tab) 0.125 mg DAILY@1600 PO 12/18/16 16:00 01/17/17 15:59 12/18/16 15:50 0.125 MG Prednisone (PredniSONE TAB) 5 mg ACHS PO 12/19/16 12:00 01/18/17 11:59 12/19/16 12:43 5 MG Review of Systems 10 point review of systems was otherwise negative aside from HPI Physical Exam Height & Weight: Height 6 feet, 1.00 inches. Weight 95.700 (Kilograms) 210 (Pounds) Last Vital Signs Documentation Date Time Temp Pulse Resp B/P (MAP) Pulse Ox O2 Delivery O2 Flow Rate FiO2 12/19/16 10:22 67 97 12/19/16 09:05 114/59 (77) 12/19/16 07:35 36.7 18 Room Air 12/18/16 06:09 2.0 Exam: Awake alert noted 3 appearing in no acute distress accompanied by 3 members of his family on today's examination he is sitting in his bedside chair. Pupils equally round and react to light neck is supple CV regular rate and rhythm Lungs no audible wheezes or rhonchi Skin warm and dry to touch with no skin tears breakdown Spine: He has a well-healed midline surgical incision with loss of lumbar lordosis. He has decreased extension to about 10 but adequate flexion side bending and rotation He is tender over the right L3 through S1 region. He is mildly tender over bilateral SI joints or greater trochanters. He has 5 out of 5 strength bilateral lower extremities equal throughout with 1+ DTRs of bilateral L4 and S1. No appreciable ankle clonus straight leg raise is negative bilaterally Gait was with the utilization of a 4 wheeled rolling walker. He was able to stand with limited difficulty. Cranial nerves are grossly intact Laboratory Laboratory Results (Last CBC): 12/19/16 05:17 Imaging MRI: non enhanced, reports reviewed, images reviewed MRI Findings Patient: RAGHAVENDRA GRAMAJO Address1: [address] [place] [address] Rec: [id number] Address2: Acct ID: [id number] [facility] Zip: [place] [address] Date: 1940 Sex: M Room/Bed: Ref Phy: Dana Aponte M.D. SC: ANICETO Att Phy: Report #: [id number] Haydee Phy: Dana Aponte M.D. Test: LSWOC Admit Phy: Weather Teacher: KYLAH Interpreting Phy: Iain Joseph M.D. Diagnosis: RT LEG PAIN Ordering Phy: Alisha Alcantara M.D. Service Date: 12/18/16 Admit Date: 12/18/16 MNE: [id number] CONF: DICTATED BY: Iain Joseph M.D.]] CC: Alisha Alcantara M.D. Lavery, Doriann M.D. Endcc: [~ rep ct add3]] LUMBAR SPINE MRI HISTORY: Pain lumbar radiculopathy TECHNIQUE: Multiplanar multisequence MRI of the lumbar spine was performed without the use of contrast. COMPARISON: None. FINDINGS: For the purpose of the report the L5-S1 disc space will be located on axial image 27 of 30. Findings of laminectomies and fusions at L4 and L5. Posterior fusion S1. L1-L2: Mild posterior disc bulge. Degenerative change posterior facets. L2-L3: Moderate multifactorial narrowing of the spinal canal. Moderate narrowing of the neuroforamina. L3-L4: Postoperative changes. Moderate narrowing of the right and to lesser extent left neural foramina. Mild edema right L3 nerve root as it exits the neural foramina. L4-L5: Posterior laminectomy and fusion L5-S1: Posterior laminectomy and fusion. Moderate narrowing of the neuroforamina bilaterally. IMPRESSION: 1. Considerable degenerative and postoperative change at the entire lumbar region. 2. Moderate to rather significant multifactorial spinal stenosis at L2-L3. 3. Bulging discs L1-L2, L2-L3, 4. Narrowing of multiple neural foramina bilaterally as described. Radiology: reports reviewed, images reviewed Radiology Findings Patient: RAGHAVENDRA GRAMAJO Address1: [address] [place] [address] Rec: [id number] Address2: Acct ID: [id number] [facility] Zip: [place] [address] Date: 1940 Sex: M Room/Bed: [facility] Ref Phy: Dana Aponte M.D. SC: Farooq Att Phy: Brian Bravo DO Report #: [id number] Haydee Phy: Dana Aponte M.D. Test: [id number] Admit Phy: Brian Bravo DO Weather Teacher: MITRA Interpreting Phy: Iain Joseph M.D. Diagnosis: INTRACTABLE PAIN,LUMBAR RADICULOPATHY Ordering Phy: Thanh Blake DO Service Date: 12/19/16 Admit Date: 12/18/1705/25/17 MNE: [id number] CONF: DICTATED BY: Iain Joseph M.D.]] CC: Brian Bravo, Dana Stratton M.D., John C., Endcc: LUMBAR SPINE 2 OR 3 VIEWS CLINICAL HISTORY: pain pain COMPARISON STUDY: FINDINGS: Considerable degenerative change throughout the entire lumbar region. Findings consistent with posterior laminectomy and fusion from L4 through S1. Hardware is intact. There is degenerative disc changes throughout. IMPRESSION: Degenerative and postoperative change. Findings consistent with a posterior laminectomy and fusion from L4 through S1 with alignment anatomic. RIGHT HIP UNILATERAL 2 VIEWS CLINICAL HISTORY: R hip pain, recent intra-articular injection; arthritis Right COMPARISON: None. DISCUSSION: Considerable degenerative change. No evidence for acetabular protrusion. Moderate peripheral reactive osteophytic change. There is no evidence for soft tissue swelling. IMPRESSION: Degenerative change. No acute process. Electronically signed by: Iain Joseph M.D. 12/18/2016 8:45 AM Assessment 1. Lumbar radiculitis right lower extremity 2. Lumbar Postlaminectomy syndrome 3. Lumbago Recommendations 1. We discussed gabapentin dosing and epidural steroid injections as a start of conservative measures for this patient. This would be in addition to physical therapy that is already ongoing. 2. I wrote orders for gabapentin 300 mg by mouth twice a day to start this evening, we discussed the risks and benefits of this medication. 3. He will be nothing by mouth over after midnight and will hold subcutaneous per heparin today in preparation for a right L3 to 4 transforaminal epidural steroid injection for tomorrow at 11 AM and radiology special procedures. He was counseled on the risks and benefits of this injection and consent was obtained. 4. May continue [place] as previously ordered. 5. Thank you for this consultation, we'll see him back tomorrow for his injection. Dragon Voice Recognition This chart was completed in part utilizing [employer] Voice Recognition Software. Random word insertions, pronoun errors, and incomplete sentences are an occasional consequence of this system due to software limitations and ambient noise. Any questions or concerns about the content, text or information contained within the body of this dictation should be directly addressed to the provider for clarification.
[2016-12-19] MEDS ORDERED: MAGNESIUM CITRATE 296 ML/BTL PO ONE ×2 (14:15→16:45)
[2016-12-19 15:33] VITALS: BP 131/70; PULSE 61; TEMP 36.3; O2SAT 98
[2016-12-19] MEDS: DIGOXIN 0.125 MG TAB PO SCH (16:33)
[2016-12-19 21:11] VITALS: BP 137/75; PULSE 64
[2016-12-19] MEDS: GABAPENTIN 300 MG CAP PO SCH (21:14)
[2016-12-19 22:46] VITALS: BP 163/76; PULSE 62; TEMP 36.8; O2SAT 97
[2016-12-20] VITALS (9 sets, daily range): BP systolic 125–158; BP diastolic 63–82; PULSE 54–74; TEMP 36.4–36.7; O2SAT 95–98
[2016-12-20] MEDS: HYDROCODONE/ACETAMOPHEN 5/325MG TAB PO PRN ×3 (01:32→22:07)
[2016-12-20 05:43] LABS: HEMATOCRIT 37.6 % (42-52); MEAN CELL VOLUME 88.7 fL (80-100); MEAN CORPUSCULAR HEMOGLOBIN 31.1 pg (25-34); MEAN CORPUSCULAR HGB CONC 35.1 g/dl (32-36); MEAN PLATELET VOLUME 9.2 fL (7.4-10.4); PLATELET COUNT 109 K/uL (130-400); RED BLOOD COUNT 4.24 M/uL (4.7-6.1); WHITE BLOOD COUNT 5.97 K/uL (4.8-10.8)
[2016-12-20 06:22] LABS: BUN/CREATININE RATIO 34.6 (10-20); POTASSIUM 4.9 mmol/L (3.5-5.1)
[2016-12-20] MEDS: KETOROLAC TROMETHAMINE 15 MG/ML VIAL IV. PRN ×2 (08:04→20:31)
[2016-12-20] MEDS: GABAPENTIN 300 MG CAP PO SCH ×2 (08:57→20:31)
[2016-12-20] MEDS: TAMSULOSIN HCL 0.4 MG CAP PO SCH (08:57)
[2016-12-20] MEDS: ASPIRIN 81 MG CHEW PO SCH (08:57)
[2016-12-20] MEDS: ROSUVASTATIN CALCIUM 10 MG TAB PO SCH (08:58)
[2016-12-20] MEDS: METOPROLOL TARTRATE 25 MG TAB PO SCH ×2 (09:00→20:31)
[2016-12-20] MEDS ORDERED: TRIAMCINOLONE ACET 40 MG/ML VIAL ONE (10:56)
--- NOTE | 2016-12-20 11:33 | Pain Clinic Procedure Note ---
Pain Management Procedure Note Procedure Date Dec 20, 2016. Procedure Description Procedure Time Out: side/site verified, patient ID confirmed, correct procedure Consent Obtained: written Performed By: Dr. Mirta Mata Indications: diagnostic, therapeutic Contraindications: none Pre Procedure Vital Signs Date Time Temp Pulse Resp B/P (MAP) Pulse Ox O2 Delivery O2 Flow Rate FiO2 12/20/16 08:57 54 136/80 (98) 12/20/16 08:05 Room Air 12/20/16 07:05 36.4 55 16 138/75 (96) 98 Room Air 12/20/16 04:50 155/76 (102) ASA Class: 3 Description: TRANSFORAMINAL EPIDURAL STEROID INJECTION (DIAGNOSTIC) Diagnosis: Lumbar Radiculitis and Lumbar Postlaminectomy Syndrome Level injected: Right L3-4 Surgeon: Dr. Mirta Mata Anesthesia: local Material forwarded to lab: none Prior to starting, the Patients diagnosis and the procedure were reviewed with the patient in detail. Possible risks, complications and alternative therapies were also reviewed. Patients questions were answered. Informed consent was obtained. Allergies and medication list was reviewed. The patient was brought to the fluoroscopy room and placed in prone position on the table. Immediately prior to starting the procedure, a time out was conducted with the staff and the patient where the patient was identified, proposed procedure was verified, consent was reviewed and the proper site for the planned procedure was identified. Fluoroscopy was utilized in performing the procedure to assist the placement of the needle, to evaluate the final position of the needle prior to injection and to avoid intravascular injection. Monitors used included intermittent blood pressure with automated device, continuous pulse oximetry and level of consciousness. Patient was not given any intravenous sedation and constant verbal contact was maintained throughout the procedure. Lumbar-sacral area was prepped with duraprep and betadine solution. Sterile drapes were applied. The appropriate interspace and disk was identified in a true AP view. The fluoroscope was then rotated to obtain a decubitus view in such a manner so that the superior articular process of the inferior vertebra was bisecting the pars inter-articularis of the vertebra above in two or in the 6 oclock position. A 22 Gauge 3.5 inch curved (15 degrees) spinal needle was inserted through the skin and subcutaneous tissues, after local anesthetic infiltration, and advanced in a co-axial technique. Needle tip was first placed on the infero-lateral margin of the pars inter-articularis. Once the bony margin was contacted, the C-arm was rotated to obtain a lateral view. The needle was slowly walked off the bone and advanced toward the anterior and superior aspect of the foramen. Patient did not experience any pain or paresthesia. A six inch micro bore tubing was attached to the needle and aspiration did not demonstrate CSF or blood. 1 cc of Isovue 300 contrast was injected via the needle under live fluoroscopy. Spread of the contrast along the nerve root. AP view was checked to ensure the needle tip was in the close proximity to the nerve root an in the proximal neural foramen lateral to the inferior articular process and in the 6 oclock position. Additional 1 cc of the contrast was injected under live fluoroscopy. Neither subdural or subarachnoid spread nor intravascular uptake was noted on plain fluoroscopy. Approximately 10 to 15 second digital subtraction angiogram at 3 f/s rate was done in a AP view with additional contrast. No vascular uptake was noted. Next 40mg kenalog was injected at each site followed by 1cc of 1% lidocaine-MPF to flush the needle. The patient did not experience pain during the injection. Adequate hemostasis was noted. A sterile Band-Aid was applied to the injection site. Patient was monitored and report was given to the floor RN. Follow-up appointment has been scheduled. Complications: none Patient Tolerated Procedure: well Post-procedure Vital Signs: reviewed and stable Discharge Instructions: reviewed & understood [employer] Voice Recognition; This chart was completed in part utilizing [employer] Voice Recognition Software. Random word insertions, pronoun errors, and incomplete sentences are an occasional consequence of this system due to software limitations and ambient noise. Any questions or concerns about the content, text or information contained within the body of this dictation should be directly addressed to the provider for clarification. Comments: The patient will followup with our office ([facility]) on 01/12/17 at 8:45am Please call [phone] with questions.
[2016-12-20 13:11] LABS: CALCIUM 8.2 mg/dl (8.5-10.1)
[2016-12-20] MEDS: DIGOXIN 0.125 MG TAB PO SCH (16:36)
--- NOTE | 2016-12-20 18:51 | Progress Note ---
Internal Med Progress Note Date of Service: Dec 20, 2016. Provider Documentation: SUBJECTIVE: feels much better today back pain has improved , minimum radiating pain to right leg had epidural steroid injection done earlier today by Dr Mata able to walk in hallway with walker with out any difficulty OBJECTIVE: Vital Signs-as noted below Exam: General-very pleasant , no sign of distress Eyes-sclera non icteric ENT-NAD Neck-no JVD Lungs-CTA Heart-regular S1/S2 Abdomen-soft, non tender Extremities-no lower ext edema , Neuro-AAO x3, no focal neurological deficit Lab data as noted below. ASSESSMENT & PLAN: R Hip Pain Lumbar Stenosis appreciate ortho input Lumbar radiculopathy causing R LE pain/weakness Lumbar MRI Moderate to rather significant multifactorial spinal stenosis at L2-L3 Bulging discs L1-L2, L2-L3 appreciate input from Orhopedics conservative management with PT/OT pain management consulted for further input; s/p epidural injection today pt mentions had improvement of his symptom earlier today " feels like a different person : able to bear wt . ambulate plan to discharge home tomorrow will need to follow up with Pain management clinic for possible epidural injection in future ( 3-6 months if indicated ) Had PT eval earlier , able to ambulate 140 ft with walker recommend continue PT at home Supraventricular Tachycardia controlled with b-tennille Aortic Root Dilatation stable, as per recent echo Dyslipidemia continue Crestor 5mg - has had issues with myalgias, but tolerating this dose well DVT ppx subq heparin DVT PROPHYLAXIS sub q heparin DISPOSITION possible discharge home tomorrow will benefit from home PT Vital Signs: Date Time Temp Pulse Resp B/P (MAP) Pulse Ox O2 Delivery O2 Flow Rate FiO2 12/20/16 16:36 60 12/20/16 15:20 36.4 69 16 144/79 (100) 95 Room Air 12/20/16 11:58 36.4 61 16 157/68 (97) 96 Room Air 12/20/16 11:23 74 16 158/70 (99) 98 Room Air 12/20/16 08:57 54 136/80 (98) 12/20/16 08:05 Room Air 12/20/16 07:05 36.4 55 16 138/75 (96) 98 Room Air 12/20/16 04:50 155/76 (102) 12/19/16 23:59 Room Air 12/19/16 22:46 36.8 62 18 163/76 (105) 97 Room Air 12/19/16 21:11 64 137/75 (95) 12/19/16 19:50 Room Air Lab Results: Results Past 24 Hours Test 12/20/16 05:21 Range/Units White Blood Count 5.97 4.8-10.8 K/uL Red Blood Count 4.24 4.7-6.1 M/uL Hemoglobin 13.2 14.0-18.0 g/dL Hematocrit 37.6 42-52 % Mean Corpuscular Volume 88.7 80-100 fL Mean Corpuscular Hemoglobin 31.1 25-34 pg Mean Corpuscular Hemoglobin Concent 35.1 32-36 g/dl RDW Standard Deviation 44.7 36.4-46.3 fL RDW Coefficient of Variation 13.7 11.5-14.5 % Platelet Count 109 130-400 K/uL Mean Platelet Volume 9.2 7.4-10.4 fL Sodium Level 141 136-145 mmol/L Potassium Level 4.9 3.5-5.1 mmol/L Chloride Level 106 98-107 mmol/L Carbon Dioxide Level 30 21-32 mmol/L Anion Gap 5.0 3-11 mmol/L Blood Urea Nitrogen 35 7-18 mg/dl Creatinine 1.00 0.60-1.40 mg/dl Est Creatinine Clear Calc Drug Dose 71.0 ml/min Estimated GFR () 84.4 Estimated GFR (Non- 72.8 BUN/Creatinine Ratio 34.6 10-20 Random Glucose 98 70-99 mg/dl Calcium Level 8.2 8.5-10.1 mg/dl
[2016-12-20] MEDS ORDERED: HYDR-5688 PO (18:53)
[2016-12-20] MEDS ORDERED: NRN300 PO (18:53)
--- NOTE | 2016-12-20 18:54 | Discharge Instructions ---
Discharge Instructions Date of Service Dec 20, 2016. Admission Reason for Admission: Intractable Pain,Lumbar Radiculopathy Discharge Discharge Diagnosis / Problem: BACK PAIN /LUMBER RADICULOPATHY Discharge Goals Goal(s): Decrease discomfort, Improve disease control, Diagnostic testing Activity Recommendations Activity Limitations: as noted below ( TOLERATED ) Lifting Limitations: no more than 5 pounds (FOR 1 WEEK ) Exercise/Sports Limitations: gradually increase as tolerated Shower/Bathe: no limitations Driving or Machine Use: AFTER 1 WEEK . Instructions / Follow-Up Instructions / Follow-Up HOSPITAL FOLLOW UP ON 12/28/2016 @ 3:[address] Stevan Snell MD Internal Medicine [facility] FOLLOW UP AT THE PAIN MANAGEMENT CLINIC WITH DR FLORIAN on 01/12/17 as per schedule NEED ORTHOPEDICS FOLLOW UP WITH DR ROCHA IN 1 WEEK, CALL OFFICE TO SCHEDULE APPOINTMENT NEW MEDICATIONS : you are started on Gabapentin 300 mg by mouth twice daily -will help to reduce nerve irritation /pain radiating to right thigh and knee script sent to [facility] in [facility] Pain medication : [place] ( Hydrocodone /Acetaminophen 5/325 mg ) 1 tablet by mouth every 8 hrs as needed for pain -pain medication may make to dizzy/lightheaded /sleepy -do not drive or operate machinery when taking pain meds [place] has Tylenol in it -do not take extra Tylenol over the counter -may lead to Tylenol overdose /toxicity please take stool softener-over the Counter ( Colace , Miralax etc ) with it to prevent constipation while taking [place] Current Hospital Diet Patient's current hospital diet: AHA Diet (Heart Healthy) Discharge Diet Recommended Diet: AHA Diet (Heart Healthy) Pending Studies Studies pending at discharge: no Medical Emergencies . Who to Call and When: Medical Emergencies: If at any time you feel your situation is an emergency, please call 911 immediately. . Non-Emergent Contact Non-Emergency issues call your: Primary Care Provider . . "Provider Documentation" section prepared by Zamzam Bui. . VTE Core Measure Inpt VTE Proph given/why not?: Unfractionated heparin SQ
[2016-12-20] MEDS ORDERED: HEPARIN SOD 5000 UNIT/0.5 ML CARP SQ SCH (20:00)
[2016-12-21] MEDS: HYDROCODONE/ACETAMOPHEN 5/325MG TAB PO PRN (05:40)
[2016-12-21 07:03] VITALS: BP 151/75; PULSE 61; TEMP 36.3; O2SAT 97
[2016-12-21] MEDS: KETOROLAC TROMETHAMINE 15 MG/ML VIAL IV. PRN (07:16)
[2016-12-21] MEDS: ROSUVASTATIN CALCIUM 10 MG TAB PO SCH (08:16)
[2016-12-21] MEDS: METOPROLOL TARTRATE 25 MG TAB PO SCH (08:16)
[2016-12-21] MEDS: ASPIRIN 81 MG CHEW PO SCH (08:16)
[2016-12-21] MEDS: TAMSULOSIN HCL 0.4 MG CAP PO SCH (08:16)
[2016-12-21] MEDS: GABAPENTIN 300 MG CAP PO SCH (08:16)
--- NOTE | 2016-12-21 08:56 | Pain Management Progress Note ---
Pain Management Progress Note Date of Service Dec 21, 2016. Subjective Mr. Gramajo underwent a right-sided L3-4 transforaminal URSULA performed yesterday. Patient is reporting improvement in right lower extremity radicular pain and improved strength since time of the procedure. He is reporting some aching discomfort in the lumbosacral region extending the gluteal area. He is describing some "twinge" in the hip region as morning upon awakening. He indicates this discomfort is gluteal and lateral region. He denies pain in the groin area. He does report an intra-articular hip injection performed prior to this admission with short-term relief of hip pain with known history of DJD. Patient denies any side effects to the epidural procedure performed yesterday and is encouraged by the results. He reports hydrocodone is effective at "taking the edge off" of his discomfort. Patient has no further constitutional complaints. Objective Vital Signs: Last Vital Signs Documentation Date Time Temp Pulse Resp B/P (MAP) Pulse Ox O2 Delivery O2 Flow Rate FiO2 12/21/16 07:13 Room Air 12/21/16 07:03 36.3 61 16 151/75 (100) 97 12/18/16 06:09 2.0 Physical Exam: General: Mr. Gramajo is sitting up upon entering the room in no acute distress. Speech and thought process appropriate. Mood and affect appropriate. Cognition intact. Back/spine: Loss of lumbar lordosis. Band-Aid was removed for inspection-no evidence of edema erythema or skin breakdown at site of injection. He is mildly tender in the lumbosacral paravertebral location on the right without evidence of significant spasm. Well-healed midline surgical incision appreciated. Lower extremity: SLR negative bilaterally. Strength testing was 5/5 and equal bilaterally. Hip is without obvious tenderness throughout internal next and rotation in the sitting position. Unable to perform Lei maneuver secondary to knee discomfort. Sensation was reportedly intact without deficit. No evidence of edema erythema or skin breakdown distally. Sensation was intact without deficits. Neurologic: Cranial nerves grossly intact. Ambulatory function was not witnessed. Laboratory Laboratory Findings 12/20/16 05:21 Assessment 1. Lumbar radiculopathy-right lower extremity 2. Lumbar postlaminectomy syndrome 3. Right hip pain with history of DJD 4. Lumbago Recommendations 1. Expectations were discussed status post URSULA at length with the patient. Will monitor response over the next 2 weeks with planned follow-up in the pain clinic. 2. Recommend maintaining gabapentin at current dosing-consider dose titration 3. Continue with hydrocodone for when necessary breakthrough pain upon discharge 4. Will sign off on the patient at this time [employer] Voice Recognition This chart was completed in part utilizing [employer] Voice Recognition Software. Random word insertions, pronoun errors, and incomplete sentences are an occasional consequence of this system due to software limitations and ambient noise. Any questions or concerns about the content, text or information contained within the body of this dictation should be directly addressed to the provider for clarification.
--- NOTE | 2016-12-21 10:10 | Progress Note ---
Subjective Date of Service: Dec 21, 2016. Subjective Pt evaluation today including: conversation w/ patient Voiding: incontinence Problem List Medical Problems: (1) Intractable pain Status: Acute (2) Lumbar radiculopathy Status: Acute Review of Systems Constitutional: + see HPI Neurologic: + weakness, + numbness/tingling (Patient making progress with pain. Did have two bouts of incontinence last evening. Will Watch carefully. Surgery possibly indicated if pain and bladder issues don't resolve.) Objective Vital Signs Date Time Temp Pulse Resp B/P (MAP) Pulse Ox O2 Delivery O2 Flow Rate FiO2 12/21/16 07:13 Room Air 12/21/16 07:03 36.3 61 16 151/75 (100) 97 Room Air 12/20/16 23:59 Room Air 12/20/16 22:56 36.4 64 18 152/82 (105) 98 Room Air 12/20/16 20:20 63 148/63 (91) 12/20/16 20:10 Room Air 12/20/16 19:23 36.7 59 16 125/69 (87) 98 Room Air 12/20/16 16:36 60 12/20/16 15:20 36.4 69 16 144/79 (100) 95 Room Air 12/20/16 11:58 36.4 61 16 157/68 (97) 96 Room Air 12/20/16 11:23 74 16 158/70 (99) 98 Room Air
[2016-12-21 13:00] VITALS: BP 151/75; PULSE 61; TEMP 36.3; O2SAT 97
--- NOTE | 2016-12-21 13:21 | Progress Note ---
Internal Med Progress Note Date of Service: Dec 21, 2016. Provider Documentation: SUBJECTIVE: pain and discomfort on back and rt leg radiation has improved able to walk on room nursing reports to episode of urinary incontinence last night no episodes all this morning and noon pt thinks he drank way too much water and could not make it to bathroom no complain of saddle anesthesia no urinary symptom today feels ready to go home family present in room arrangements made for home health /Home PT through [facility]placed By [facility] nursing OBJECTIVE: Vital Signs-as noted below Exam: General-very pleasant , no sign of distress Eyes-sclera non icteric ENT-NAD Neck-no JVD Lungs-CTA Heart-regular S1/S2 Abdomen-soft, non tender Extremities-no lower ext edema , Neuro-AAO x3, no focal neurological deficit Lab data as noted below. ASSESSMENT & PLAN: R Hip Pain Lumbar Stenosis appreciate ortho input Lumbar radiculopathy causing R LE pain/weakness Lumbar MRI Moderate to rather significant multifactorial spinal stenosis at L2-L3 Bulging discs L1-L2, L2-L3 appreciate input from Orthopedics no indication for emergent spinal decompression surgery this Admission recommend out pt follow up in 1 week cont pain control ; PT/OT eval pain management consulted for further input; s/p epidural injection on 12/20/16 pt mentions had improvement of his symptom pt started on Gabapentin 300 mg BID -which will be continued out pt pain management follow up arranged on 01/12/17 Gabapentin dose can be titrated as per Pain management team PRN [place] 5mg /325 mg Q8hrs as needed for intractable pain pt instructed to take stool softener to prevent narcotic induced constipation able to bear wt on right leg / ambulate Had PT eval able to ambulate 140 ft with walker recommend continue PT at home home health /home PT arrangements done pt already has a walker at home Supraventricular Tachycardia controlled with b-tennille/Digoxin Aortic Root Dilatation stable, as per recent echo Dyslipidemia continue Crestor 5mg - has had issues with myalgias, but tolerating this dose well DVT ppx scd and roman Sub q heparin D/johnathan after epidural injection to prevent bleeding complication DISPOSITION stable to be discharge home today arrangements made for home PT Pain management follow up with Dr Mirta Castillo Ortho eval with Dr Blake [facility] follow up arranged with Dr Kim Vital Signs: Date Time Temp Pulse Resp B/P (MAP) Pulse Ox O2 Delivery O2 Flow Rate FiO2 6/28/17 13:00 36.3 61 16 97 Room Air 12/21/16 07:13 Room Air 12/21/16 07:03 36.3 61 16 151/75 (100) 97 Room Air 12/20/16 23:59 Room Air 12/20/16 22:56 36.4 64 18 152/82 (105) 98 Room Air 12/20/16 20:20 63 148/63 (91) 12/20/16 20:10 Room Air 12/20/16 19:23 36.7 59 16 125/69 (87) 98 Room Air 12/20/16 16:36 60 12/20/16 15:20 36.4 69 16 144/79 (100) 95 Room Air
--- NOTE | 2016-12-21 13:23 | Discharge Summary ---
Discharge Summary Date of Service Dec 21, 2016. Discharge Summary Admission Date: Dec 18, 2016 at 08:30 Discharge Date: Dec 21, 2016 Discharge Disposition: Home with services Principal Diagnosis: BACK PAIN /LUMBER RADICULOPATHY Secondary Diagnoses/Problems: Medical Problems: (1) Gastric ulcer Status: Resolved (2) Oth Pulmon Embolism/Infarct Status: Resolved (3) Paroxysmal supraventricular tachycardia Status: Chronic (4) Pulmonary embolism Status: Resolved (5) s/p arthroscopic surgery left knee Status: Resolved (6) s/p colonoscopy Permanent Comment: [facility] tubulovillous adenoma Status: Resolved (7) s/p laparoscopic cholecystectomy Permanent Comment: gallstone pancreatitis Status: Resolved (8) s/p multiple back procedures Status: Resolved (9) s/p nasal polypectomy Status: Resolved Procedures: TRANSFORAMINAL EPIDURAL STEROID INJECTION (DIAGNOSTIC) ON November Diagnosis: Lumbar Radiculitis and Lumbar Postlaminectomy Syndrome Level injected: Right L3-4 Surgeon: Dr. Betsy Florian Anesthesia: local MRI OF LUMBER SPINE : IMPRESSION: 1. Considerable degenerative and postoperative change at the entire lumbar region. 2. Moderate to rather significant multifactorial spinal stenosis at L2-L3. 3. Bulging discs L1-L2, L2-L3, 4. Narrowing of multiple neural foramina bilaterally as described. XRAY OF LUMBER SPINE 2 OR 3 VIEW : IMPRESSION: Degenerative and postoperative change. Findings consistent with a posterior laminectomy and fusion from L4 through S1 with alignment anatomic. XRAY OF RIGHT HIP UNILATERAL : IMPRESSION: Degenerative change. No acute process. Consultations: ORTHOPEDICS -DR BLAKE PAIN MANAGEMENT -DR BETSY FLORIAN Medication Reconciliation New Medications: Gabapentin (Gabapentin) 300 Mg Cap 300 MG PO BID for 30 Days, #60 CAP 2 Refills Hydrocodone/Acetaminophen 5MG/325MG ([place] 5MG/325MG) Tab 1 TAB PO Q8 PRN for Pain, #20 TAB PRN PAIN Continued Medications: Aspirin (Aspirin Chewable) 81 Mg Chew 81 MG PO QAM Azelastine Hcl (Astelin Nasal [place]) 200 Sprays/30 Ml [place] 1-2 SPRAYS NA BID PRN for CONGESTION, BTL B-Complex Vitamins (Vitamin B Complex) 1 Tab Tab 1 TAB PO QAM Cholecalciferol (Vitamin D) 5,000 Unit Tab 5000 UNITS PO QAM Diclofenac Sodium (Topical) (Voltaren 1% Top Gel) 1 % Gel 1 DOSE EXT DIRECTED PRN for Pain Digoxin (Digoxin) 0.125 Mg Tab 0.125 MCG PO HS Fluticasone Propionate (Nasal) (Flonase Allergy Relief) 50 Mcg/Act Spr 1 SPRAY REILLY DAILY PRN for PRN Krill Oil (Krill Oil) 1 Cap Cap 1000 MG PO QAM Magnesium Oxide (Mg Supplement (Magnesium) 400 Mg Cap 400 MG PO QAM Metoprolol Tartrate (Lopressor) 25 Mg Tab 25 MG PO BID, TAB Quinine Sulfate (Quinine Sulfate) 324 Mg Cap 324 MG PO HS PRN for LEG CRAMPING, CAP Rosuvastatin Calcium (Crestor) 5 Mg Tab 5 MG PO DAILY, TAB Tamsulosin Hcl (Flomax) 0.4 Mg Cap 0.4 MG PO DAILY, CAP Referrals At Discharge Follow up Referrals: Orthopedics Referral - Within 1-2 Weeks with Thanh Blake DO Physician Referral - Please Call For Appointment with Betsy Florian DO Admission Information HPI (per Admitting provider): This is a 76 year old male with a PMH of multiple lumbar surgeries (last one in 1997), supraventricular tachycardia controlled with medications, aortic root dilatation - stable, incomplete RBBB, dyslipidemia, BPH, 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 presents with R hip pain radiating down his R leg. He states that on December 02, he received an intra-articular injection to the R hip due to the osteoarthritis. He has been following with [facility] for this R hip issue. He tells me that he was doing some manual labor at home, including lifting, etc. prior to arrival which may have worsened his pain. He has also been dealing with a chronic bilateral knee problems due to osteoarthritis - he uses Voltaren gel for this pain. He has a history of five lumbar surgeries, last one in 1997 - which was a fusion. Currently denies any back pain, but the R sided pain shoots down his leg, similar to when he had sciatic pain. Currently, improved after medication. Denies fevers/chills, nausea/vomiting, chest pain/shortness of breath. Physical Exam (per Admitting): General Appearance: + mild distress (secondary to pain) Head: normocephalic, atraumatic Eyes: normal inspection ENT: hearing grossly normal Neck: supple Respiratory/Chest: chest non-tender, lungs clear, normal breath sounds, no respiratory distress, no accessory muscle use Cardiovascular: regular rate, rhythm, no edema, no gallop, no JVD, no murmur , normal peripheral pulses Abdomen/GI: normal bowel sounds, non tender, soft Back: no muscle spasm Extremities/Musculoskelatal: normal capillary refill, no pedal edema Neurologic/Psych: no motor/sensory deficits, alert, normal mood/affect Skin: normal color Lymphatic: no adenopathy Hospital Course R Hip Pain Lumbar Stenosis appreciate ortho input Lumbar radiculopathy causing R LE pain/weakness Lumbar MRI Moderate to rather significant multifactorial spinal stenosis at L2-L3 Bulging discs L1-L2, L2-L3 appreciate input from Orthopedics no indication for emergent spinal decompression surgery this Admission recommend out pt follow up in 1 week cont pain control ; PT/OT eval pain management consulted for further input; s/p epidural injection on 12/20/16 pt mentions had improvement of his symptom pt started on Gabapentin 300 mg BID -which will be continued out pt pain management follow up arranged on 01/12/17 Gabapentin dose can be titrated as per Pain management team PRN [place] 5mg /325 mg Q8hrs as needed for intractable pain pt instructed to take stool softener to prevent narcotic induced constipation able to bear wt on right leg / ambulate Had PT eval able to ambulate 140 ft with walker recommend continue PT at home home health /home PT arrangements done pt already has a walker at home Supraventricular Tachycardia controlled with b-tennille/Digoxin Aortic Root Dilatation stable, as per recent echo Dyslipidemia continue Crestor 5mg - has had issues with myalgias, but tolerating this dose well DVT ppx scd and roman Sub q heparin D/johnathan after epidural injection to prevent bleeding complication DISPOSITION stable to be discharge home today arrangements made for home PT Pain management follow up with Dr Betsy Castillo Ortho eval with Dr Blake [facility] follow up arranged with Dr Kim Total time spent on discharge = 40 MINS This includes examination of the patient, discharge planning, medication reconciliation, and communication with other providers. Discharge Instructions DI: Medical v4 Discharge Instructions Date of Service Dec 20, 2016. Admission Reason for Admission: Intractable Pain,Lumbar Radiculopathy Discharge Discharge Diagnosis / Problem: BACK PAIN /LUMBER RADICULOPATHY Discharge Goals Goal(s): Decrease discomfort, Improve disease control, Diagnostic testing Activity Recommendations Activity Limitations: as noted below ( TOLERATED ) Lifting Limitations: no more than 5 pounds (FOR 1 WEEK ) Exercise/Sports Limitations: gradually increase as tolerated Shower/Bathe: no limitations Driving or Machine Use: AFTER 1 WEEK . Instructions / Follow-Up Instructions / Follow-Up HOSPITAL FOLLOW UP ON 12/28/2016 @ 3:[address] Stevan Snell MD Internal Medicine [facility] FOLLOW UP AT THE [facility]NAGEMENT [facility] WITH DR FLORIAN on 01/12/17 as per schedule NEED ORTHOPEDICS FOLLOW UP WITH DR BLAKE IN 1 WEEK, CALL OFFICE TO SCHEDULE APPOINTMENT NEW MEDICATIONS : you are started on Gabapentin 300 mg by mouth twice daily -will help to reduce nerve irritation /pain radiating to right thigh and knee script sent to [facility] in [facility] Pain medication : [place] ( Hydrocodone /Acetaminophen 5/325 mg ) 1 tablet by mouth every 8 hrs as needed for pain -pain medication may make to dizzy/lightheaded /sleepy -do not drive or operate machinery when taking pain meds [place] has Tylenol in it -do not take extra Tylenol over the counter -may lead to Tylenol overdose /toxicity please take stool softener-over the Counter ( Colace , Miralax etc ) with it to prevent constipation while taking [place] Current Hospital Diet Patient's current hospital diet: AHA Diet (Heart Healthy) Discharge Diet Recommended Diet: AHA Diet (Heart Healthy) Pending Studies Studies pending at discharge: no Medical Emergencies . Who to Call and When: Medical Emergencies: If at any time you feel your situation is an emergency, please call 911 immediately. . Non-Emergent Contact Non-Emergency issues call your: Primary Care Provider . . "Provider Documentation" section prepared by Zamzam Bui. . VTE Core Measure Inpt VTE Proph given/why not?: Unfractionated heparin SQ Additional Copies To Thanh Blake, Betsy Pope, DO
[2017-01-05] MEDS ORDERED: GABA-113 PO (12:53)
[2017-01-05] MEDS ORDERED: IBUP-103 PO (12:53)
[2017-01-05] MEDS ORDERED: HYDR-5688 PO (12:53)
[2017-02-22] MEDS ORDERED: CMD75 PO (15:26)
[2017-02-22] MEDS ORDERED: HYDR-5688 PO (15:26)
[2017-02-22] MEDS ORDERED: CMD5 PO (15:47)
== END 2016-12-21 13:32 | disposition home health service (06) | DRG 552 ==
LOC: EDBD 02:01 → C.EDB 02:04 → C.3E 08:30 → ENRESERV 08:58
PROVIDERS: ADMIT Family Medicine; ATTEND Hospitalist
PROC: 3E0S3GC Introduction of Other Therapeutic Substance into Epidural Space, Percutaneous Approach (ICD-10-PCS; principal; 2016-12-20)
DX: M96.1 Postlaminectomy syndrome, not elsewhere classified (principal); I47.1 Supraventricular tachycardia; M54.16 Radiculopathy, lumbar region; M48.06 Spinal stenosis, lumbar region; M16.11 Unilateral primary osteoarthritis, right hip; M17.0 Bilateral primary osteoarthritis of knee; I77.819 Aortic ectasia, unspecified site; E78.5 Hyperlipidemia, unspecified; N40.0 Benign prostatic hyperplasia without lower urinary tract symptoms; Z51.81 Encounter for therapeutic drug level monitoring; Z79.899 Other long term (current) drug therapy; Z79.82 Long term (current) use of aspirin; Z98.890 Other specified postprocedural states; Z86.711 Personal history of pulmonary embolism; Z98.1 Arthrodesis status; Z82.49 Family history of ischemic heart disease and other diseases of the circulatory system; Y83.8 Other surgical procedures as the cause of abnormal reaction of the patient, or of later complication, without mention of misadventure at the time of the procedure

== ENCOUNTER 2017-01-26 09:09 | Observation (INO) | payer OTHER ==
[2017-01-05 12:53] VITALS: BMI 26.0
--- NOTE | 2017-01-05 13:30 | PAT Medication Instructions ---
Service Date Jan 05, 2017. Current Home Medication List Aspirin (Aspirin Chewable), 81 MG PO QAM Azelastine Hcl (Astelin Nasal [place]), 1-2 SPRAYS NA BID PRN for CONGESTION B-Complex Vitamins (Vitamin B Complex), 1 TAB PO QAM Cholecalciferol (Vitamin D), 5,000 UNITS PO QAM Diclofenac Sodium (Topical) (Voltaren 1% Top Gel), 1 DOSE EXT DIRECTED PRN for Pain Digoxin (Digoxin), 0.125 MCG PO HS Fluticasone Propionate (Nasal) (Flonase Allergy Relief), 1 SPRAY REILLY DAILY PRN for PRN Gabapentin (Neurontin), 300 MG PO BID Hydrocodone/Acetaminophen 5MG/325MG ([place] 5MG/325MG), 1 TABLET PO Q4 PRN for Pain Ibuprofen Tab (Advil), 400 MG PO Q4 PRN for Pain Krill Oil (Krill Oil), 1,000 MG PO QAM Magnesium Oxide (Mg Supplement (Magnesium), 400 MG PO QAM Metoprolol Tartrate (Lopressor), 25 MG PO BID Quinine Sulfate (Quinine Sulfate), 324 MG PO HS PRN for LEG CRAMPING Rosuvastatin Calcium (Crestor), 5 MG PO QPM Tamsulosin Hcl (Flomax), 0.4 MG PO QPM Medication Instructions For Your Scheduled Surgery - Hold the following medications 2 weeks prior to surgery: Krill Oil (Krill Oil), 1,000 MG PO QAM - Hold the following medications 24 hours prior to surgery: Diclofenac Sodium (Topical) (Voltaren 1% Top Gel), 1 DOSE EXT DIRECTED PRN for Pain - Hold the following medications the morning of surgery: B-Complex Vitamins (Vitamin B Complex), 1 TAB PO QAM Cholecalciferol (Vitamin D), 5,000 UNITS PO QAM Magnesium Oxide (Mg Supplement (Magnesium), 400 MG PO QAM Ibuprofen Tab (Advil), 400 MG PO Q4 PRN for Pain (otherwise okay to continue per surgeon) - Take the following medications the morning of surgery with a sip of water OTHERWISE NOTHING TO EAT OR DRINK AFTER MIDNIGHT: Metoprolol Tartrate (Lopressor), 25 MG PO BID Azelastine Hcl (Astelin Nasal [place]), 1-2 SPRAYS NA BID PRN for CONGESTION Hydrocodone/Acetaminophen 5MG/325MG ([place] 5MG/325MG), 1 TABLET PO Q4 PRN for Pain (may take if needed up to 4 hours prior to surgery) Aspirin (Aspirin Chewable), 81 MG PO QAM Gabapentin (Neurontin), 300 MG PO BID Fluticasone Propionate (Nasal) (Flonase Allergy Relief), 1 SPRAY REILLY DAILY PRN for PRN - Take the following medications as scheduled the night before surgery: Digoxin (Digoxin), 0.125 MCG PO HS Quinine Sulfate (Quinine Sulfate), 324 MG PO HS PRN for LEG CRAMPING Rosuvastatin Calcium (Crestor), 5 MG PO QPM Tamsulosin Hcl (Flomax), 0.4 MG PO QPM Metoprolol Tartrate (Lopressor), 25 MG PO BID Azelastine Hcl (Astelin Nasal [place]), 1-2 SPRAYS NA BID PRN for CONGESTION Hydrocodone/Acetaminophen 5MG/325MG ([place] 5MG/325MG), 1 TABLET PO Q4 PRN for Pain Ibuprofen Tab (Advil), 400 MG PO Q4 PRN for Pain Fluticasone Propionate (Nasal) (Flonase Allergy Relief), 1 SPRAY REILYL DAILY PRN for PRN If you have any questions please call us at [phone] or [phone] or [phone]
--- NOTE | 2017-01-05 14:00 | DIAGNOSTIC IMAGING REPORT ---
CHEST PREADMISSION(PA/LAT) CLINICAL HISTORY: 76 years-old Male presenting with preadmission chest x-ray. TECHNIQUE: PA and lateral views of the chest were obtained. COMPARISON: 08/05/2015. FINDINGS: Cardiomediastinal silhouette normal. Lungs and pleural spaces clear. Osteopenia may be present. Upper abdomen normal. IMPRESSION: 1. No acute cardiopulmonary disease. Electronically signed by: Luis Goldstein M.D. 01/05/2017 1:59 PM Dictated Date/Time: 01/05/2017 1:57 PM
[2017-01-05 14:15] LABS: COMPLETE YES; EOS % 0.9 %; HEMATOCRIT 42.4 % (42-52); IG% 0.6 %; LYMPH % 12.3 %; LYMPH ABS # 1.14 K/uL (1.2-3.4); MEAN CELL VOLUME 90.6 fL (80-100); MEAN CORPUSCULAR HEMOGLOBIN 32.3 pg (25-34); MEAN CORPUSCULAR HGB CONC 35.6 g/dl (32-36); MEAN PLATELET VOLUME 9.5 fL (7.4-10.4); MONO % 5.8 %; NEUT % 80.4 %; PLATELET COUNT 108 K/uL (130-400); RED BLOOD COUNT 4.68 M/uL (4.7-6.1); WHITE BLOOD COUNT 9.24 K/uL (4.8-10.8)
[2017-01-05 14:27] LABS: PROTHROMBIN TIME (PATIENT) 10.5 SECONDS (9.0-12.0)
[2017-01-26] VITALS (10 sets, daily range): BP systolic 133–189; BP diastolic 69–87; PULSE 58–89; TEMP 36.4–36.8; O2SAT 96–99; Ht 185.4 cm; Wt 91.1 kg
[~2017-01-26] VITALS: Ht 185.4 cm; Wt 91.1 kg
--- NOTE | 2017-01-26 07:37 | History and Physical ---
History & Physical Date Jan 26, 2017. Chief Complaint Lower extremity weakness loss ability to stand and walk distances History of Present Illness The patient is a 76 year old male with complaints of right lower extremity difficulty lumbar spine radiculopathy. Failure to improve with conservative measures strength in the quadriceps loss of dorsiflexion both feet Past Medical/Surgical History Medical Problems: (1) Gastric ulcer (2) Oth Pulmon Embolism/Infarct (3) Paroxysmal supraventricular tachycardia (4) Pulmonary embolism (5) s/p arthroscopic surgery left knee (6) s/p colonoscopy (7) s/p laparoscopic cholecystectomy (8) s/p multiple back procedures (9) s/p nasal polypectomy Additional History Hepatic Disease: Yes Endocrine Disorder: No Kidney Disease: No Hypertension: Yes Heart Disease: Yes Bleeding Tendencies: No Infectious Diseases: No Other: History of pulmonary emboli. Allergies Coded Allergies: Sulfa Antibiotics (Verified Allergy, Unknown, PT UNSURE OF RXN, CHILDHOOD , 01/05/17) Home Medications Scheduled Aspirin (Aspirin Chewable), 81 MG PO QAM B-Complex Vitamins (Vitamin B Complex), 1 TAB PO QAM Cholecalciferol (Vitamin D), 5,000 UNITS PO QAM Digoxin (Digoxin), 0.125 MCG PO HS Gabapentin (Neurontin), 300 MG PO BID Krill Oil (Krill Oil), 1,000 MG PO QAM Magnesium Oxide (Mg Supplement (Magnesium), 400 MG PO QAM Metoprolol Tartrate (Lopressor), 25 MG PO BID Rosuvastatin Calcium (Crestor), 5 MG PO QPM Tamsulosin Hcl (Flomax), 0.4 MG PO QPM Scheduled PRN Azelastine Hcl (Astelin Nasal [place]), 1-2 SPRAYS NA BID PRN for CONGESTION Diclofenac Sodium (Topical) (Voltaren 1% Top Gel), 1 DOSE EXT DIRECTED PRN for Pain Fluticasone Propionate (Nasal) (Flonase Allergy Relief), 1 SPRAY REILLY DAILY PRN for PRN Hydrocodone/Acetaminophen 5MG/325MG ([place] 5MG/325MG), 1 TABLET PO Q4 PRN for Pain Ibuprofen Tab (Advil), 400 MG PO Q4 PRN for Pain Quinine Sulfate (Quinine Sulfate), 324 MG PO HS PRN for LEG CRAMPING Physical Examination Skin: warm/dry Eyes: normal inspection ENT: normal ENT inspection Head: normocephalic Neck: supple Respiratory/Chest: lungs clear Cardiovascular: regular rate, rhythm Abdomen / GI: normal bowel sounds Back: normal inspection (decreased range of motion pain with percussion loss of motion sidebending flexion-extension) Genitourinary - Male: normal male genitalia Neurologic/Psych: + pertinent finding (loss of quadriceps strength loss of dorsiflexion of the feet since sensation to 3 and IV nerve root area lumbar spine) Diagnosis Spinal stenosis lumbar spine L2 L3 L4 ASA Classification: ASA Class III Plan of Treatment Lumbar spine laminectomy L2-3 L-4 lumbar spine
[~2017-01-26 09:09] MED LIST changes: +CEFAZOLIN 2000 MG/60 ML D5W 60 ML IV SCH; +GABA-113 PO; +HYDR-5688 PO; +IBUP-103 PO; +LACTATED RINGER'S 1000ML 1,000 ML IV SCH; -MULT-506 PO; +NSS 1000ML IV SCH; +ROSU5TAB PO
[2017-01-26] MEDS ORDERED: ROCURONIUM BROMIDE 10 MG/ML 5 ML VIAL ONE ×2 (10:05→12:01)
[2017-01-26] MEDS ORDERED: DEXAMETHASONE SOD INJ 4 MG/ML VIAL ONE (10:05)
[2017-01-26] MEDS ORDERED: LIDOCAINE HCL 2% 2 ML VIAL (20MG/ML) ONE (10:05)
[2017-01-26] MEDS ORDERED: ONDANSETRON INJ 2 MG/ML 2 ML VIAL ONE (10:05)
[2017-01-26] MEDS ORDERED: PROPOFOL IV EMULSION 10 MG/ML 20 ML VIAL IV ONE (10:05)
[2017-01-26] MEDS ORDERED: FENTANYL CITRATE INJ 50 MCG/1 ML 2 ML VIAL ONE (10:06)
[2017-01-26] MEDS ORDERED: THROMBIN FOR SOLN 20000 UNIT KIT ONE (11:09)
[2017-01-26] MEDS ORDERED: GELATIN SPONGE SZ 100 ONE (11:09)
[2017-01-26] MEDS ORDERED: BUPIVACAINE/EPINEPHRINE 0.5% MPF 1:200,000 10 ML VIAL ONE (11:10)
[2017-01-26] MEDS ORDERED: VANCOMYCIN HCL 1000MG/20ML VIAL ONE (11:10)
[2017-01-26] MEDS ORDERED: BACITRACIN 50000 UNIT VIAL ONE (11:10)
[2017-01-26] MEDS ORDERED: ONDANSETRON INJ 2 MG/ML 2 ML VIAL IV PRN ×2 (12:00→13:15)
[2017-01-26] MEDS ORDERED: PROMETHAZINE HCL INJ 6.25 MG in SODIUM CHLORIDE 0.9% 50ML 50 ML IV PRN (12:00)
[2017-01-26] MEDS ORDERED: EpHEDrine SULFATE INJ 50 MG/ML AMP IV PRN (12:00)
[2017-01-26] MEDS ORDERED: HYDROmorphone INJ 1 MG/ML SYR IV PRN ×2 (12:00→13:15)
[2017-01-26] MEDS ORDERED: ATROPINE SULFATE 0.1 MG/ML 5ML SYR IV PRN (12:00)
[2017-01-26] MEDS ORDERED: EpHEDrine SULFATE 50MG/5ML SYR ONE (12:16)
[2017-01-26] MEDS ORDERED: NEOSTIGMINE METHYLSULFATE 5 MG/5 ML SYR ONE (12:38)
[2017-01-26] MEDS ORDERED: GLYCOPYRROLATE INJ 0.2 MG/ML VIAL ONE (12:38)
[2017-01-26] MEDS ORDERED: ESMOLOL HCL 10 MG/ML 10 ML VIAL ONE (12:54)
[2017-01-26] MEDS ORDERED: LABETALOL HCL IV 5 MG/ML 20ML IV ONE (12:57)
--- NOTE | 2017-01-26 13:02 | DIAGNOSTIC IMAGING REPORT ---
LUMBAR SPINE, INTRAOPERATIVE FLUOROSCOPY HISTORY: L2 L4 laminectomy. FLUOROSCOPY TIME: 4 seconds. FINDINGS: Intraoperative fluoroscopy was provided for the lumbar spine. A single fluoroscopic spot image. There is posterior decompression fusion from L4 through S1. There are pedicle screws at L4 and S1 with associated spinal rods. IMPRESSION: Fluoroscopy provided for a L4-S1 posterior decompression and fusion. Electronically signed by: Andres Silver M.D. 01/26/2017 1:00 PM Dictated Date/Time: 01/26/2017 12:59 PM
--- NOTE | 2017-01-26 13:10 | [facility] Post Operative Brief Note ---
Immediate Operative Summary Operative Date Jan 26, 2017. Pre-Operative Diagnosis Spinal stenosis lumbar spine L2 L3 L4 Post-Operative Diagnosis Spinal stenosis lumbar spine L2 L3 L4 Procedure(s) Performed laminectomy L2-[address] Blake Tail Worker Surgeon(s) Pato Veras PA-C Estimated Blood Loss 200 cc Findings severe stenosis Specimens none per surgeon Complication(s) None Disposition Recovery Room / PACU
[2017-01-26] MEDS ORDERED: METOCLOPRAMIDE HCL INJ 5 MG/ML 2 ML VIAL IV PRN (13:15)
[2017-01-26] MEDS ORDERED: MAGNESIUM HYDROXIDE SUSP 30 ML UDC PO PRN (13:15)
[2017-01-26] MEDS ORDERED: HYDROmorphone INJ 2 MG/ML SYR/VIAL IV PRN (13:15)
[2017-01-26] MEDS ORDERED: PROMETHAZINE HCL INJ 12.5 MG in SODIUM CHLORIDE 0.9% 50ML 50 ML IV PRN (13:15)
[2017-01-26] MEDS ORDERED: ACETAMINOPHEN 325 MG TAB PO PRN (13:15)
[2017-01-26] MEDS ORDERED: LORAZEPAM 1 MG TAB PO PRN (13:15)
[2017-01-26] MEDS ORDERED: OXYCODONE/ACETAMINOPHEN 5-325 TAB PO PRN (13:15)
[2017-01-26] MEDS ORDERED: QUINine SULFATE CAP 324 MG CAP PO PRN (13:15)
[2017-01-26] MEDS ORDERED: LORAZEPAM INJ 1 MG in SYRINGE 0.5 ML IV PRN (13:15)
[2017-01-26] MEDS: FENTANYL CITRATE INJ 50 MCG/1 ML 2 ML VIAL IV PRN ×4 (13:21→13:36)
--- NOTE | 2017-01-26 13:32 | OPERATIVE REPORT ---
DATE OF OPERATION: 01/26/2017 PREOPERATIVE DIAGNOSIS: Stenosis lumbar spine. POSTOPERATIVE DIAGNOSIS: Same. PROCEDURE: Laminectomy 2, 3, 4 lumbar spine, bilateral decompression. SURGEON: Dr. Blake. BOX BLANK MACHINE FEEDER: Pato Veras PA-C. COMPLICATIONS: Zero. BLOOD LOSS: 200. DESCRIPTION OF PROCEDURE: The patient was taken to the operating room, a general intubated anesthetic provided to the patient, placed prone, scrubbed, prepped and draped sterile. Prior to this, we put in a King catheter. We used his old skin incision, made a skin incision, fascial incision, dissecting all soft tissue, putting in deep self-retaining retractor. I used various techniques throughout the entire procedure, curettes, rongeurs, a bur. We got very nice decompression of nerve roots which will be 2, 3, 4 on the affected right hand side and likewise 2, 3, 4 on the unaffected side. I was pleased with the decompression. There were no apparent complications. We had great visibility. We then irrigated with approximately 500 mL of fluid, closed over Hemovac drain and vancomycin powder with #1 Vicryl suture, 2-0 and 3-0 nylon. Sterile dressings applied. The patient returned supine, extubated to PACU stable. No complications. I attest to the content of the Intraoperative Record and any orders documented therein. Any exception s are noted below.
[2017-01-26] MEDS ORDERED: IV FLUIDS COMPLETED PRN (13:45)
--- NOTE | 2017-01-26 13:49 | Anesthesiology Progress Note ---
Anesthesia Post Op Note Date & Time Jan 26, 2017 at 13:48 Vital Signs Pain Intensity: 2 Vital Signs Past 12 Hours Date Time Temp Pulse Resp B/P (MAP) Pulse Ox O2 Delivery O2 Flow Rate FiO2 01/26/17 13:40 86 16 153/71 100 Oxymask 2 01/26/17 13:30 82 16 152/70 100 Oxymask 5 01/26/17 13:20 75 14 153/84 100 Oxymask 10 01/26/17 13:12 36.4 81 14 150/83 100 Oxymask 10 01/26/17 09:48 36.8 70 22 189/87 (121) 99 Room Air Notes Mental Status: alert / awake / arousable, participated in evaluation Pt Amnestic to Procedure: Yes Nausea / Vomiting: adequately controlled Pain: adequately controlled Airway Patency, RR, SpO2: stable & adequate BP & HR: stable & adequate Hydration State: stable & adequate Anesthetic Complications: no major complications apparent
[2017-01-26 13:50] LABS: HEMATOCRIT 41.7 % (42-52)
[2017-01-26] MEDS ORDERED: NURSING VERBAL MED ORDER ONE (14:30)
[2017-01-26] MEDS: SODIUM CHLORIDE 0.9% 1000ML 1,000 ML IV SCH (14:42)
[2017-01-26] MEDS ORDERED: PRED10TA PO (15:07)
[2017-01-26] MEDS ORDERED: METOPROLOL TARTRATE 25 MG TAB PO ONE (15:15)
--- NOTE | 2017-01-26 15:58 | Medical Consult ---
Consultation Date of Consultation: Jan 26, 2017. Attending Physician: Thanh Blake DO Reason for Consultation: Post Op Medical Management History of Present Illness 76 year old male L2-[address] Blake. Patient reports he injured his back about one year ago moving furniture. He had acute worsening of the pain about one month ago and was admitted to [facility] for pain control. He then presented for the planned procedure today. Post operatively the patient is doing well. He reports his pain is well controlled. No numbness or tingling to the BLLE. He denies chest pain and shortness of breath. No abdominal pain or nausea. He denies lightheadedness and dizziness. Past Medical/Surgical History Medical Problems: (1) Aortic root dilatation Permanent Comment: mild on echo 11/2016 Status: Chronic (2) Dyslipidemia Status: Chronic (3) Oth Pulmon Embolism/Infarct Status: Resolved (4) Paroxysmal SVT (supraventricular tachycardia) Status: Chronic (5) TIA (transient ischemic attack) Status: Chronic Surgical Problems: (1) H/O left knee surgery Status: Chronic (2) H/O nasal polypectomy Status: Chronic (3) History of back surgery Status: Chronic (4) Hx of cholecystectomy Status: Chronic Family History FH: Parkinson's disease BROTHER FH: heart disease FATHER (fatal CT at age 48) Social History Smoking Status: Never Smoker Alcohol Use: none Allergies Coded Allergies: Sulfa Antibiotics (Verified Allergy, Unknown, PT UNSURE OF RXN, CHILDHOOD , 01/26/17) Home Medications Prednisone 10 Mg Tab 10 Mg PO BID Advil (Ibuprofen) 200 Mg Tab 400 Mg PO Q4 PRN [place] 5MG/325MG (Acetaminophen/Hydrocodone Bitart) Tab 1 Tablet PO Q4 PRN PRN PAIN Neurontin (Gabapentin) 300 Mg Cap 300 Mg PO BID Crestor (Rosuvastatin Calcium) 5 Mg Tab 5 Mg PO QPM Vitamin D (Cholecalciferol) 5,000 Unit Tab 5,000 Units PO QAM Vitamin B Complex (B-Complex Vitamins) 1 Tab Tab 1 Tab PO QAM Magnesium (Magnesium Oxide (Mg Supplement) 400 Mg Cap 400 Mg PO QAM Flonase Allergy Relief (Fluticasone Propionate (Nasal)) 50 Mcg/Act Spr 1 [place] REILLY DAILY PRN Astelin Nasal [place] (Azelastine Hcl) 200 Sprays/30 Ml [place] 1-2 Sprays NA BID PRN Quinine Sulfate 324 Mg Cap 324 Mg PO HS PRN Voltaren 1% Top Gel (Diclofenac Sodium (Topical)) 1 % Gel 1 Dose EXT DIRECTED PRN Digoxin 0.125 Mg Tab 0.125 Mg PO HS Aspirin Chewable (Aspirin) 81 Mg Chew 81 Mg PO QAM Flomax (Tamsulosin Hcl) 0.4 Mg Cap 0.4 Mg PO QPM Krill Oil 1 Cap Cap 1,000 Mg PO QAM Lopressor (Metoprolol Tartrate) 25 Mg Tab 25 Mg PO BID Current Inpatient Medications Current Inpatient Medications Medications (Trade) Dose Ordered Sig/Cathy Route Start Time Stop Time Status Last Admin Dose Admin Cefazolin Sodium 60 ml @ 100 mls/hr PREOP IV 01/26/17 06:00 01/26/17 18:00 01/26/17 11:21 100 MLS/HR Fentanyl Citrate (Fentanyl Inj) 50 mcg Q5M PRN IV 01/26/17 12:00 01/26/17 17:00 01/26/17 13:36 50 MCG Hydromorphone HCl (Dilaudid Inj) 0.5 mg Q5M PRN IV 01/26/17 12:00 01/26/17 17:00 Ondansetron HCl (Zofran Inj) 4 mg ONE PRN IV 01/26/17 12:00 01/26/17 17:00 Promethazine HCl 6.25 mg/Sodium Chloride 50.25 ml @ 202 mls/hr ONE PRN IV 01/26/17 12:00 01/26/17 17:00 Ephedrine Sulfate (EpHEDrine SULFATE INJ) 5 mg Q5M PRN IV 01/26/17 12:00 01/26/17 17:00 Atropine Sulfate (Atropine Sulfate 0.1MG/Ml Inj) 0.5 mg Q1M PRN IV 01/26/17 12:00 01/26/17 17:00 Acetaminophen (Tylenol Tab) 650 mg Q6H PRN PO 01/26/17 13:15 02/25/17 13:14 Hydromorphone HCl (Dilaudid Inj) 1 mg Q3H PRN IV 01/26/17 13:15 02/09/17 13:14 Hydromorphone HCl (Dilaudid Inj) 1.5 mg Q3H PRN IV 01/26/17 13:15 02/09/17 13:14 Promethazine HCl 12.5 mg/Sodium Chloride 50.5 ml @ 202 mls/hr Q6H PRN IV 01/26/17 13:15 02/25/17 13:14 Ondansetron HCl (Zofran Inj) 4 mg Q6H PRN IV 01/26/17 13:15 02/25/17 13:14 Metoclopramide HCl (Reglan Inj) 10 mg Q6H PRN IV 01/26/17 13:15 02/25/17 13:14 Lorazepam (Ativan Tab) 1 mg Q6H PRN PO 01/26/17 13:15 02/25/17 13:14 Lorazepam 1 mg/ Syringe 1 ml @ 1 mls/min Q6H PRN IV 01/26/17 13:15 02/25/17 13:14 Polyethylene (Miralax Powder Packet) 17 gm DAILY PO 01/27/17 09:00 02/26/17 08:59 Bisacodyl (Dulcolax Tab) 5 mg DAILY PRN PO 01/27/17 06:00 02/26/17 05:59 Bisacodyl (Dulcolax Supp) 10 mg DAILY PRN MT 01/27/17 06:00 02/26/17 05:59 Magnesium Hydroxide (Milk Of Magnesia Susp) 30 ml DAILY PRN PO 01/26/17 13:15 02/25/17 13:14 Diphenhydramine HCl (Benadryl Cap) 25 mg Q6H PRN PO 01/26/17 13:15 02/25/17 13:14 Oxycodone/ Acetaminophen (Percocet 5-325mg Tab) 1 tab Q4H PRN PO 01/26/17 13:15 02/09/17 13:14 Oxycodone/ Acetaminophen (Percocet 5-325mg Tab) 2 tab Q4H PRN PO 01/26/17 13:15 02/09/17 13:14 Cefazolin Sodium 2000 mg/Dextrose 60 ml @ 100 mls/hr Q8H IV 01/26/17 20:00 01/27/17 12:35 Dexamethasone Sodium Phosphate 10 mg/Syringe 2.5 ml @ 1 mls/min Q8H IV 01/26/17 18:00 8/5/17 02:03 Oxycodone HCl (Roxicodone Immediate Rel Tab) 5 mg Q4H PRN PO 01/26/17 13:15 02/09/17 13:14 Aspirin (Ecotrin Tab) 81 mg QAM PO 01/27/17 09:00 02/26/17 08:59 Digoxin (Lanoxin Tab) 0.125 mg HS PO 01/26/17 21:00 02/25/17 20:59 Gabapentin (Neurontin Cap) 300 mg BID PO 01/26/17 21:00 02/25/17 20:59 Metoprolol Tartrate (Lopressor Tab) 25 mg BID PO 01/26/17 21:00 02/25/17 20:59 Rosuvastatin Calcium (Crestor Tab) 5 mg QPM PO 01/26/17 21:00 02/25/17 20:59 Tamsulosin HCl (Flomax Cap) 0.4 mg QPM PO 01/26/17 21:00 02/25/17 20:59 Vitamin B Complex (Vitamin B Complex) 1 tab DAILY PO 01/27/17 09:00 02/26/17 08:59 Cholecalciferol (Vitamin D Tab) 5,000 inter.unit DAILY PO 01/27/17 09:00 02/26/17 08:59 Magnesium Oxide (Mag-Ox Tab) 400 mg DAILY PO 01/27/17 09:00 02/26/17 08:59 Miscellaneous (Iv Fluids Completed) 1 ea PRN PRN N/A 01/26/17 13:45 01/26/18 13:44 Sodium Chloride 1,000 ml @ 80 mls/hr [id number] IV 01/26/17 14:45 02/25/17 14:44 01/26/17 14:42 80 MLS/HR Review of Systems ROS per HPI, all other systems reviewed and negative Physical Exam Date Time Temp Pulse Resp B/P (MAP) Pulse Ox O2 Delivery O2 Flow Rate FiO2 01/26/17 15:12 36.5 81 18 150/78 (102) 97 Room Air 01/26/17 14:41 36.7 84 15 136/80 (98) 96 Room Air 01/26/17 14:10 Room Air 01/26/17 14:10 36.4 80 16 150/78 (102) 99 Room Air 01/26/17 14:10 99 Room Air 01/26/17 14:00 80 16 141/74 99 Room Air 01/26/17 13:50 36.6 80 16 138/76 100 Room Air 01/26/17 13:40 86 16 153/71 100 Oxymask 2 01/26/17 13:30 82 16 152/70 100 Oxymask 5 01/26/17 13:20 75 14 153/84 100 Oxymask 10 01/26/17 13:12 36.4 81 14 150/83 100 Oxymask 10 01/26/17 09:48 36.8 70 22 189/87 (121) 99 Room Air General Appearance: no apparent distress Head: normocephalic Eyes: normal inspection ENT: hearing grossly normal Neck: supple, no JVD Respiratory/Chest: lungs clear, normal breath sounds, no respiratory distress Cardiovascular: regular rate, rhythm, no edema, normal peripheral pulses Abdomen/GI: normal bowel sounds, non tender, soft Back: + pertinent finding (s/p back surgery, surgical dressing inact, drain in place draining bloody drainage, pedal pushes and pulls strong BLLE ) Extremities/Musculoskelatal: normal inspection, no calf tenderness Neurologic/Psych: no motor/sensory deficits, alert, normal mood/affect, oriented x 3 Skin: normal color, warm/dry Laboratory Results Last 24 Hours Test 01/26/17 13:43 Hemoglobin 14.3 g/dL Hematocrit 41.7 % Assessment & Plan S/P L2-4 LAMINECTOMY - POD#0 - activity and wound care orders as per ortho - pain control with bowel regimen - PT/OT - monitor H/H for acute blood loss anemia and transfuse blood products PRN - noted patient was on Prednisone 10mg BID prior to surgery for pain control - holding for now while receiving IV Decadron HX PAROXYSMAL SVT - controlled on beta tennille and digoxin HLD - continue statin AORTIC ROOT DILATION - stable on echo 11/2016 DVT PROPHYLAXIS - deferred to ortho Attending addendum: Agree with the above consultation H&P; please see above for details. Patient is a pleasant 76 yo male who returns to the hospital for scheduled L2- L4 laminectomy after a recent admission for intractable back pain. He underwent surgery earlier today and reports feeling as though he is tired, but otherwise feels well. Pain is controlled. He has not eaten yet but denies any N/V. Multiple family members in the room. Cardiac: RR, S1 and S2 auscultated Resp: CTA B/L GI: soft, NT, ND, +bowel sounds POSTOPERATIVE STATUS: s/p Lumbar laminectomy -POD#0 -pain control, DVT prophylaxis, drain management, activity recommendations as per Ortho -incentive spirometry -bowel regimen -monitor for post op anemia PREVIOUS SVT: -on BB + digoxin which have been continued
[2017-01-26] MEDS: OXYCODONE/ACETAMINOPHEN 5-325 TAB PO PRN ×2 (16:41→23:11)
[2017-01-26] MEDS: DEXAMETHASONE INJ 10 MG in SYRINGE 0 ML IV SCH (17:25)
[2017-01-26] MEDS: OXYCODONE HCL IR 5 MG TAB (IMMEDIATE RELEASE) PO PRN (19:55)
[2017-01-26] MEDS: CEFAZOLIN IV 2,000 MG in DEXTROSE 5% 50ML 50 ML IV SCH (19:56)
[2017-01-26] MEDS: DIGOXIN 0.125 MG TAB PO SCH (20:49)
[2017-01-26] MEDS: METOPROLOL TARTRATE 25 MG TAB PO SCH (20:49)
[2017-01-26] MEDS: ROSUVASTATIN CALCIUM 5 MG TAB PO SCH (20:51)
[2017-01-26] MEDS: TAMSULOSIN HCL 0.4 MG CAP PO SCH (20:51)
[2017-01-26] MEDS: GABAPENTIN 300 MG CAP PO SCH (20:51)
[2017-01-27] MEDS: DEXAMETHASONE INJ 10 MG in SYRINGE 0 ML IV SCH ×3 (02:13→18:27)
[2017-01-27 03:10] VITALS: BP 124/70; PULSE 69; TEMP 36.4; O2SAT 97
[2017-01-27] MEDS: SODIUM CHLORIDE 0.9% 1000ML 1,000 ML IV SCH (03:17)
[2017-01-27] MEDS: CEFAZOLIN IV 2,000 MG in DEXTROSE 5% 50ML 50 ML IV SCH ×2 (03:18→12:37)
[2017-01-27] MEDS: OXYCODONE/ACETAMINOPHEN 5-325 TAB PO PRN ×2 (03:18→20:44)
[2017-01-27] MEDS ORDERED: BISACODYL 10 MG SUPP PR PRN (06:00)
[2017-01-27] MEDS ORDERED: BISACODYL 5 MG TABEC PO PRN (06:00)
[2017-01-27 06:03] LABS: HEMATOCRIT 37.8 % (42-52); MEAN CELL VOLUME 91.1 fL (80-100); MEAN CORPUSCULAR HGB CONC 35.2 g/dl (32-36); RED BLOOD COUNT 4.15 M/uL (4.7-6.1); WHITE BLOOD COUNT 8.67 K/uL (4.8-10.8)
[2017-01-27 06:41] LABS: PLATELET COUNT 91 K/uL (130-400); PLT ESTIMATE DECREASED
[2017-01-27 06:42] LABS: BUN/CREATININE RATIO 20.4 (10-20); CREATININE 0.88 mg/dl (0.60-1.40); POTASSIUM 4.3 mmol/L (3.5-5.1)
[2017-01-27 06:43] LABS: CALCIUM 8.1 mg/dl (8.5-10.1)
[2017-01-27 07:04] VITALS: BP 114/68; PULSE 72; TEMP 36.4; O2SAT 94
--- NOTE | 2017-01-27 07:21 | Progress Note ---
Subjective Date of Service: Jan 27, 2017. Subjective Pt evaluation today including: conversation w/ patient Alert and oriented Problem List Medical Problems: (1) Intractable pain Status: Acute (2) Lumbar radiculopathy Status: Acute Review of Systems Constitutional: + see HPI All Other Systems: Reviewed and Negative Objective Vital Signs Date Time Temp Pulse Resp B/P (MAP) Pulse Ox O2 Delivery O2 Flow Rate FiO2 01/27/17 07:04 36.4 72 17 114/68 (83) 94 Room Air 01/27/17 03:10 36.4 69 16 124/70 (88) 97 Room Air 01/26/17 22:50 36.5 74 18 145/82 (103) 98 Room Air 01/26/17 20:49 58 01/26/17 20:45 58 148/69 (95) 01/26/17 19:00 Room Air 01/26/17 18:56 36.6 71 18 156/78 (104) 97 Room Air 01/26/17 17:08 36.6 89 16 133/77 (95) 98 Room Air 01/26/17 16:10 36.4 88 18 136/75 (95) 97 Room Air 01/26/17 16:07 97 Room Air 01/26/17 15:12 36.5 81 18 150/78 (102) 97 Room Air 01/26/17 14:41 36.7 84 15 136/80 (98) 96 Room Air 01/26/17 14:10 Room Air 01/26/17 14:10 36.4 80 16 150/78 (102) 99 Room Air 01/26/17 14:10 99 Room Air 01/26/17 14:00 80 16 141/74 99 Room Air 01/26/17 13:50 36.6 80 16 138/76 100 Room Air 01/26/17 13:40 86 16 153/71 100 Oxymask 2 01/26/17 13:30 82 16 152/70 100 Oxymask 5 01/26/17 13:20 75 14 153/84 100 Oxymask 10 01/26/17 13:12 36.4 81 14 150/83 100 Oxymask 10 01/26/17 09:48 36.8 70 22 189/87 (121) 99 Room Air Laboratory Results Last 24 Hours Test 01/26/17 13:43 01/27/17 05:35 Hemoglobin 14.3 g/dL 13.3 g/dL Hematocrit 41.7 % 37.8 % White Blood Count 8.67 K/uL Red Blood Count 4.15 M/uL Mean Corpuscular Volume 91.1 fL Mean Corpuscular Hemoglobin 32.0 pg Mean Corpuscular Hemoglobin Concent 35.2 g/dl RDW Standard Deviation 48.5 fL RDW Coefficient of Variation 14.4 % Platelet Count 91 K/uL Mean Platelet Volume 9.0 fL Platelet Estimate DECREASED Sodium Level 140 mmol/L Potassium Level 4.3 mmol/L Chloride Level 106 mmol/L Carbon Dioxide Level 29 mmol/L Anion Gap 5.0 mmol/L Blood Urea Nitrogen 18 mg/dl Creatinine 0.88 mg/dl Est Creatinine Clear Calc Drug Dose 80.7 ml/min Estimated GFR () 96.7 Estimated GFR (Non- 83.4 BUN/Creatinine Ratio 20.4 Random Glucose 137 mg/dl Calcium Level 8.1 mg/dl Assessment and Plan Mr. Iglesias is now approximately 20 hours after significant spinal surgery doing fairly well. He does have some lingering right lower extremity difficulties consistent with radiculopathy or greater trochanteric bursitis. He denies any chest pain shortness of breath confusion Spent posterior spinal stenosis surgery about 20 hours after a regular spinal operation Plan Get Mr. Iglesias up and ambulatory today with physical therapy and obtain his dressing maintain his drains optimistically home tomorrow in the morning thank you
--- NOTE | 2017-01-27 07:27 | Discharge Instructions ---
Discharge Instructions Date of Service Jan 27, 2017. Admission Reason for Admission: Lumbar Spinal Stenosis Discharge Discharge Diagnosis / Problem: spinal stenosis Discharge Goals Goal(s): Improve function Activity Recommendations Activity Limitations: as noted below Lifting Limitations: gradually increase as tolerated May Resume Sexual Activity: after follow-up appointment Shower/Bathe: keep incision dry Be very careful with bending stooping and lifting. No driving . Instructions / Follow-Up Instructions / Follow-Up MEDICATIONS: Please take your prescriptions as instructed at your pre-op appointment. SPECIAL CARE: The following information is intended to answer some of the common questions and concerns regarding your surgery. Each patient is an individual and receives individual counselling throughout the course of treatment, from diagnosis to surgery all the way through recovery. What follows is not an exhaustive list, but should be a useful guide to some of the common questions and concerns patients have regarding their surgeries. These are not provided to keep you from calling us; rather, they give you something accurate and concrete to reference as you recover from your procedure. If you need us, we are available to you. As always, if you are not sure about something, call us at [phone]. MEDICAL EMERGENCIES: For these conditions, call 911 or go to your local hospital-based Emergency Department - not [facility] or equivalent. * Paralysis * Severe chest pain or difficulty breathing * Swelling or redness of either leg Spine procedures can be rather complex and though complications are rare, they do occur. In such cases, effective advice regarding emergency situations cannot always be addressed over the telephone. You may be referred to the emergency department for more effective management of your problem. Activity Limitations: It is important to give your body time to heal, so please limit your activities : * In general, don't do anything that moves your spine too much. You should avoid contact sports, twisting or heavy lifting while you recover. * 5-10 pounds is all you should attempt to lift. * You should not plan on driving for approximately 3 weeks and you should avoid traveling more than 30-45 minutes at a time. Longer trips should be broken down with walking breaks spaced appropriately. * Physical therapy is not usually required. * Walking and good posture practices will help you recover and regain your function. * Avoid straining or sudden changes in position. * In general, the goal is to take it easy and recover. Don't cause any new problems. Just relax. Showers: * Do not take a bath, use a Jacuzzi or hot tub or otherwise submerge your incision. * It is usually safe to take a shower 4-5 days after your surgery. * Your incision does not require any special creams or ointments. * Simply clean it with soap and water, dry and re-dress with a clean bandage afterwards. Incision: * Keep incision clean, dry and protected until your first follow-up appointment. * Some amount of drainage and redness is normal. Any drainage should be fairly clear and not have a foul odor. * If you feel anything is wrong or you have excessive drainage, please call us. * Your stitches and jersey will be removed 10-14 days after your surgery. At the time of your first post-op visit. * Neck surgeries are typically closed with a suture underneath the skin. The steri-strips over the incision should be maintained until we see you in the office. Bracing: * You may be provided with a back or neck brace to encourage good posture and prevent injury. It will remind you not to do too much as you heal and will alert others to the fact that you have had a surgery. * Back braces may be removed for showers and when you are resting at home. They must be worn when you are walking around for any period of time or for travel. * For neck surgery, you will likely be provided with two cervical collars. The soft collar ([place] or foam rubber) is worn most commonly throughout the day and while sleeping. The plastic collar (provided at the hospital) is for showering/bathing. * Except while eating, collars should remain in place. More specifically, bracing is provided for a purpose and should be worn. * Please obtain your brace or collars prior to your operation and bring them to the hospital with you on the day of surgery. * You should also bring your collars to your post-op appointment with Dr. Blake. You should always take good care of your body and practice healthy habits, especially following surgery. You should: * Follow your doctor's treatment plan * Sit and stand properly with good posture (ears over shoulders, shoulders over hips) Don't slouch * Learn to lift correctly * Exercise regularly (low-impact aerobic exercise is especially good, but check with your doctor first) * Generally, be up and walking for 5-10 minutes at a time at least 3-4 times per day from the day you get home * Increasing walking to tolerance until you can walk for 20-30 minutes at a time * Attain and maintain a healthy body weight * Eat healthy foods ( a well-balanced, low-fat diet rich in fruits and vegetables) and get enough calcium * Avoid excessive use of alcohol When to call our office - If you notice any of the following: * Increased pain not relieve by pain medicine * Fevers greater then 100 degrees F, chills or flu symptoms * Increased redness around incision * Drainage from the incision that is not clear * Any foul smelling drainage * Swelling or fluid collection beneath the skin Miscellaneous: * In the hospital, you may be given a walker or cane for support while walking. These are temporary needs and are intended to prevent injuries due to falls. You may discontinue them when you feel strong and steady enough on your feet. * Sleep in a comfortable position. We find that many patients find a lounge chair or recliner with several pillows to be beneficial in the early post-operative period. * The support stockings should be used for 7-10 days and may be discontinued when you are back to walking more and conducting usual household activities. No problem is insignificant. We are here to help you and get you well. Contact us at [phone]. Definitions: Foraminotomy: If part of the disc or a bone spur (osteophyte) is pressing on a nerve as it leaves the vertebra (through an exit called the foramen), a foraminotomy may be done. Otomy means "to make an opening." A foraminotomy is making the opening of the foramen larger, so the nerve can exit without being compressed. Laminotomy: Similar to the foraminotomy, a laminotomy makes a larger opening, this time in your bony plate protecting your spinal canal and spinal cord (the lamina). The lamina may be pressing on your nerve, so the surgeon may make more room for the nerves using a laminotomy. Laminectomy: Sometimes, a laminotomy is not sufficient. The surgeon may need to remove all or part of the lamina. This procedure is called a laminectomy. This can often be done at many levels without any harmful effects. Current Hospital Diet Patient's current hospital diet: Regular Diet Discharge Diet Recommended Diet: Regular Diet Procedures Procedures Performed: laminectomy L2-4 Pending Studies Studies pending at discharge: no Medical Emergencies . Who to Call and When: Medical Emergencies: If at any time you feel your situation is an emergency, please call 911 immediately. . Non-Emergent Contact Non-Emergency issues call your: Surgeon . "Provider Documentation" section prepared by Thanh Blake. . VTE Core Measure Inpt VTE Proph given/why not?: Treatment not indicated
[2017-01-27] MEDS ORDERED: NON-FORMULARY MEDICATION (Krill Oil 1,000 MG) PO SCH (09:00)
[2017-01-27] MEDS: GABAPENTIN 300 MG CAP PO SCH ×2 (09:07→20:49)
[2017-01-27] MEDS: MAGNESIUM OXIDE 400 MG TAB PO SCH (09:08)
[2017-01-27] MEDS: VITAMIN B COMPLEX TAB PO SCH (09:08)
[2017-01-27] MEDS: CHOLECALCIFEROL 1000 INTER.UNIT TAB PO SCH (09:08)
[2017-01-27] MEDS: METOPROLOL TARTRATE 25 MG TAB PO SCH ×2 (09:13→20:48)
[2017-01-27] MEDS: ASPIRIN 81 MG ECTAB PO SCH (09:13)
[2017-01-27] MEDS: POLYETHYLENE (MIRALAX) 17 GM PACK PO SCH (09:14)
[2017-01-27] MEDS ORDERED: NURSING VERBAL MED ORDER ONE (10:45)
[2017-01-27 12:00] VITALS: BP 112/67; PULSE 69; TEMP 36.5; O2SAT 94
[2017-01-27] MEDS: OXYCODONE HCL IR 5 MG TAB (IMMEDIATE RELEASE) PO PRN (12:40)
--- NOTE | 2017-01-27 13:44 | Anesthesiology Progress Note ---
Anesthesia Post Op Note Date & Time Jan 27, 2017 at 13:43 Vital Signs Pain Intensity: 4.0 Vital Signs Past 12 Hours Date Time Temp Pulse Resp B/P (MAP) Pulse Ox O2 Delivery O2 Flow Rate FiO2 01/27/17 12:00 36.5 69 18 112/67 (82) 94 Room Air 01/27/17 07:40 Room Air 01/27/17 07:04 36.4 72 17 114/68 (83) 94 Room Air 01/27/17 03:10 36.4 69 16 124/70 (88) 97 Room Air Notes Mental Status: alert / awake / arousable, participated in evaluation Pt Amnestic to Procedure: Yes Nausea / Vomiting: adequately controlled Pain: adequately controlled Airway Patency, RR, SpO2: stable & adequate BP & HR: stable & adequate Hydration State: stable & adequate Anesthetic Complications: no major complications apparent
[2017-01-27 15:28] VITALS: BP 125/72; PULSE 79; TEMP 36.8; O2SAT 97
--- NOTE | 2017-01-27 20:36 | Progress Note ---
Medicine Progress Note Date & Time of Visit: Jan 27, 2017 at 1900. Subjective 76 yoM s/p planned L4S1 posterior decompression and fusion on 01/26/17 -some discomfort which is controlled -ice is helping him -tolerating PO -ambulating -no BM yet, last BM was 2 days ago -denies CP, SOB or other symptoms at this time. Objective Last 8 Hrs Date Time Temp Pulse Resp B/P (MAP) Pulse Ox O2 Delivery O2 Flow Rate FiO2 01/27/17 15:28 36.8 79 18 125/72 (89) 97 Room Air 01/27/17 15:00 Room Air Physical Exam: GEN: WNWD, in no acute distress, alert and appropriate HEENT: NC/AT, PERRL, normal sclerae CARDIO: reg rate, S1/2 heard without m/g/r LUNGS: CTA bilaterally, no crackles, rales or wheezes, good diaphragmatic excursion ABD: soft, non-tender, non-distended, no rebound or guarding, +BS BACK: surgical incision is covered with dry dressing that is c/d/i, drain in place with bloody drainage. EXTREMITY: RP and DP palpable 2+ bilat, no LE swelling or edema, extremities are warm and well-perfused NEURO: CN 2-12 grossly intact, sensation intact throughout, extremities are NVI bilaterally MUSC: 5/5 strength throughout, no focal deficits, ambulatory SKIN: warm and dry and would as above Laboratory Results: 01/27/17 05:35 01/27/17 05:35 Test 01/05/17 13:40 01/27/17 05:35 Immature Granulocyte % (Auto) 0.6 % White Blood Count 9.24 K/uL (4.8-10.8) Red Blood Count 4.68 M/uL (4.7-6.1) 4.15 M/uL (4.7-6.1) Hemoglobin 15.1 g/dL (14.0-18.0) Hematocrit 42.4 % (42-52) Mean Corpuscular Volume 90.6 fL (80-100) 91.1 fL (80-100) Mean Corpuscular Hemoglobin 32.3 pg (25-34) 32.0 pg (25-34) Mean Corpuscular Hemoglobin Concent 35.6 g/dl (32-36) 35.2 g/dl (32-36) Platelet Count 108 K/uL (130-400) Mean Platelet Volume 9.5 fL (7.4-10.4) 9.0 fL (7.4-10.4) Neutrophils (%) (Auto) 80.4 % Lymphocytes (%) (Auto) 12.3 % Monocytes (%) (Auto) 5.8 % Eosinophils (%) (Auto) 0.9 % Basophils (%) (Auto) 0.0 % Neutrophils # (Auto) 7.42 K/uL (1.4-6.5) Lymphocytes # (Auto) 1.14 K/uL (1.2-3.4) Monocytes # (Auto) 0.54 K/uL (0.11-0.59) Eosinophils # (Auto) 0.08 K/uL (0-0.5) Basophils # (Auto) 0.00 K/uL (0-0.2) Immature Granulocyte # (Auto) 0.06 K/uL (0.00-0.02) Prothrombin Time 10.5 SECONDS (9.0-12.0) Prothromb Time International Ratio 1.0 (0.9-1.1) Activated Partial Thromboplast Time 25.0 SECONDS (21.0-31.0) Partial Thromboplastin Ratio 1.0 RDW Standard Deviation 48.5 fL (36.4-46.3) RDW Coefficient of Variation 14.4 % (11.5-14.5) Platelet Estimate DECREASED Anion Gap 5.0 mmol/L (3-11) Est Creatinine Clear Calc Drug Dose 80.7 ml/min Estimated GFR () 96.7 Estimated GFR (Non- 83.4 BUN/Creatinine Ratio 20.4 (10-20) Calcium Level 8.1 mg/dl (8.5-10.1) Hepatitis C Antibody Screen NEG (NEG) Last 24 Hours Test 01/27/17 05:35 White Blood Count 8.67 K/uL Red Blood Count 4.15 M/uL Hemoglobin 13.3 g/dL Hematocrit 37.8 % Mean Corpuscular Volume 91.1 fL Mean Corpuscular Hemoglobin 32.0 pg Mean Corpuscular Hemoglobin Concent 35.2 g/dl RDW Standard Deviation 48.5 fL RDW Coefficient of Variation 14.4 % Platelet Count 91 K/uL Mean Platelet Volume 9.0 fL Platelet Estimate DECREASED Sodium Level 140 mmol/L Potassium Level 4.3 mmol/L Chloride Level 106 mmol/L Carbon Dioxide Level 29 mmol/L Anion Gap 5.0 mmol/L Blood Urea Nitrogen 18 mg/dl Creatinine 0.88 mg/dl Est Creatinine Clear Calc Drug Dose 80.7 ml/min Estimated GFR () 96.7 Estimated GFR (Non- 83.4 BUN/Creatinine Ratio 20.4 Random Glucose 137 mg/dl Calcium Level 8.1 mg/dl Hepatitis C Antibody Screen NEG Assessment & Plan 76 yoM s/p planned L4S1 posterior decompression and fusion on 01/26/17 Postoperative state-Lumbar laminectomy and fusion as above. - POD#1 - activity and wound care orders as per ortho - pain control with bowel regimen-no BM yet, last BM was Wed - PT/OT - monitor H/H for acute blood loss anemia and transfuse blood products PRN - noted patient was on Prednisone 10mg BID prior to surgery for pain control - holding for now while receiving IV Decadron and will need to be on a slow taper off as he has been on them for approx 4 weeks for radiculitis. Pt is aware of the need for the taper. Chronic steroid use-needs taper going home. HX PAROXYSMAL SVT - controlled on beta tennille and digoxin. Doing well loida-operatively. Cont home meds. THROMBOCYTOPENIA-chronically low. Recommend follow-up as outpatient with PCP. HLD - continue statin DVT PROPHYLAXIS - deferred to ortho but would strongly recommend consideration of short-term prophylaxis going out with h/o pulmonary embolism. Thank you for this consultation. We will follow the patient with you during their hospital stay. You can reach a member of the [facility] Hospitalist Team 16/01 via pager @ . You can reach me via cell @ [phone]. Ginette [place], [facility] Current Inpatient Medications: Current Inpatient Medications Medications (Trade) Dose Ordered Sig/Cathy Route Start Time Stop Time Status Last Admin Dose Admin Acetaminophen (Tylenol Tab) 650 mg Q6H PRN PO 01/26/17 13:15 02/25/17 13:14 Hydromorphone HCl (Dilaudid Inj) 1 mg Q3H PRN IV 01/26/17 13:15 02/09/17 13:14 01/27/17 05:34 1 MG Hydromorphone HCl (Dilaudid Inj) 1.5 mg Q3H PRN IV 01/26/17 13:15 02/09/17 13:14 Promethazine HCl 12.5 mg/Sodium Chloride 50.5 ml @ 202 mls/hr Q6H PRN IV 01/26/17 13:15 02/25/17 13:14 Ondansetron HCl (Zofran Inj) 4 mg Q6H PRN IV 01/26/17 13:15 02/25/17 13:14 Metoclopramide HCl (Reglan Inj) 10 mg Q6H PRN IV 01/26/17 13:15 02/25/17 13:14 Lorazepam (Ativan Tab) 1 mg Q6H PRN PO 01/26/17 13:15 02/25/17 13:14 Lorazepam 1 mg/ Syringe 1 ml @ 1 mls/min Q6H PRN IV 01/26/17 13:15 02/25/17 13:14 Polyethylene (Miralax Powder Packet) 17 gm DAILY PO 01/27/17 09:00 02/26/17 08:59 01/27/17 09:14 17 GM Bisacodyl (Dulcolax Tab) 5 mg DAILY PRN PO 01/27/17 06:00 02/26/17 05:59 Bisacodyl (Dulcolax Supp) 10 mg DAILY PRN [place] 01/27/17 06:00 02/26/17 05:59 Magnesium Hydroxide (Milk Of Magnesia Susp) 30 ml DAILY PRN PO 01/26/17 13:15 02/25/17 13:14 Diphenhydramine HCl (Benadryl Cap) 25 mg Q6H PRN PO 01/26/17 13:15 02/25/17 13:14 Oxycodone/ Acetaminophen (Percocet 5-325mg Tab) 1 tab Q4H PRN PO 01/26/17 13:15 02/09/17 13:14 Oxycodone/ Acetaminophen (Percocet 5-325mg Tab) 2 tab Q4H PRN PO 01/26/17 13:15 02/09/17 13:14 01/27/17 03:18 2 TAB Dexamethasone Sodium Phosphate 10 mg/Syringe 2.5 ml @ 1 mls/min Q8H IV 01/26/17 18:00 01/28/17 02:03 01/27/17 18:27 1 MLS/MIN Oxycodone HCl (Roxicodone Immediate Rel Tab) 5 mg Q4H PRN PO 01/26/17 13:15 02/09/17 13:14 01/27/17 12:40 5 MG Aspirin (Ecotrin Tab) 81 mg QAM PO 01/27/17 09:00 02/26/17 08:59 01/27/17 09:13 81 MG Digoxin (Lanoxin Tab) 0.125 mg HS PO 01/26/17 21:00 02/25/17 20:59 Gabapentin (Neurontin Cap) 300 mg BID PO 01/26/17 21:00 02/25/17 20:59 01/27/17 09:07 300 MG Metoprolol Tartrate (Lopressor Tab) 25 mg BID PO 01/26/17 21:00 02/25/17 20:59 01/27/17 09:13 25 MG Rosuvastatin Calcium (Crestor Tab) 5 mg QPM PO 01/26/17 21:00 02/25/17 20:59 01/26/17 20:51 5 MG Tamsulosin HCl (Flomax Cap) 0.4 mg QPM PO 01/26/17 21:00 02/25/17 20:59 01/26/17 20:51 0.4 MG Vitamin B Complex (Vitamin B Complex) 1 tab DAILY PO 01/27/17 09:00 02/26/17 08:59 01/27/17 09:08 1 TAB Cholecalciferol (Vitamin D Tab) 5,000 inter.unit DAILY PO 01/27/17 09:00 02/26/17 08:59 01/27/17 09:08 5,000 INTER.UNIT Magnesium Oxide (Mag-Ox Tab) 400 mg DAILY PO 01/27/17 09:00 02/26/17 08:59 01/27/17 09:08 400 MG Miscellaneous (Iv Fluids Completed) 1 ea PRN PRN N/A 01/26/17 13:45 01/26/18 13:44
[2017-01-27] MEDS ORDERED: PRED-301 PO (20:39)
--- NOTE | 2017-01-27 20:41 | Consultant Recommendations ---
[employer] Recommendations Date of Service Jan 27, 2017. [employer] Recommendations Internal Medicine recommendations: 1. Follow-up with PCP (Dr. Aponte) within 7 days of discharge. 2. Taper prednisone slowly off over 10 days as instructed. Prescription was electronically transmitted to pharmacy on file. 3. Strongly recommend consider DVT prophylaxis with h/o pulmonary embolism. It was a pleasure taking care of you! Call if you have any questions or problems. You can reach a [facility] Hospitalist on duty at [facility] 24 hours a day by calling [phone]. Take care of yourself. Ginette Angeles, [facility]
[2017-01-27] MEDS: ROSUVASTATIN CALCIUM 5 MG TAB PO SCH (20:45)
[2017-01-27] MEDS: TAMSULOSIN HCL 0.4 MG CAP PO SCH (20:45)
[2017-01-27] MEDS: DIGOXIN 0.125 MG TAB PO SCH (20:47)
[2017-01-27 23:27] VITALS: BP 164/87; PULSE 75; TEMP 36.4; O2SAT 94
[2017-01-28] MEDS: OXYCODONE HCL IR 5 MG TAB (IMMEDIATE RELEASE) PO PRN (00:03)
[2017-01-28] MEDS: DEXAMETHASONE INJ 10 MG in SYRINGE 0 ML IV SCH (01:51)
[2017-01-28 06:15] VITALS: BP 132/74; PULSE 79; TEMP 36.4; O2SAT 97
[2017-01-28] MEDS: GABAPENTIN 300 MG CAP PO SCH (07:35)
[2017-01-28] MEDS: MAGNESIUM OXIDE 400 MG TAB PO SCH (07:35)
[2017-01-28] MEDS: CHOLECALCIFEROL 1000 INTER.UNIT TAB PO SCH (07:35)
[2017-01-28] MEDS: METOPROLOL TARTRATE 25 MG TAB PO SCH (07:35)
[2017-01-28] MEDS: POLYETHYLENE (MIRALAX) 17 GM PACK PO SCH (07:35)
[2017-01-28] MEDS: ASPIRIN 81 MG ECTAB PO SCH (07:35)
[2017-01-28] MEDS: VITAMIN B COMPLEX TAB PO SCH (07:35)
--- NOTE | 2017-01-28 08:49 | Discharge Summary ---
Orthopedic Discharge Summary Admission Date/Reason Jan 26, 2017 at 13:13 Lumbar Spinal Stenosis. Discharge Date/Disposition Jan 28, 2017 Home Diagnosis Principal Diagnosis: Severe spinal stenosis Procedure(s) Performed Lumbar laminectomy L2-3 and L3 4 lumbar spine Medication Reconciliation [place] for pain. 5 mg every 4-6 hours when necessary for pain Admission Physical Exam As per Admitting History & Physical. Hospital Course Patient tolerated the procedure well. He had a fairly significant lumbar laminectomy L2 to 4. He's done well is no confusion he has no shortness of breath. He states he feels he has improvement in his neurological function. He is afebrile. We'll discharge him home January 28 proved stable condition. His dressing will be changed his follow-up appointment. Walker home for stability. Instructions and precautions provided to the patient Discharge Instructions Please refer to the electronic Patient Visit Report (Discharge Instructions) for additional information.
[2017-01-28 10:18] VITALS: BP 132/74; PULSE 79; TEMP 36.4; O2SAT 97
[2017-02-22] MEDS ORDERED: CMD75 PO (15:26)
[2017-02-22] MEDS ORDERED: HYDR-5688 PO (15:26)
[2017-02-22] MEDS ORDERED: CMD5 PO (15:47)
== END 2017-01-28 10:45 | disposition home or self-care (01) ==
LOC: C.ACU 09:09 → C.3E 13:13 → ENRESERV 13:42
PROVIDERS: ADMIT Orthopaedic Surgery Orthopaedic Surgery of the Spine; ATTEND Orthopaedic Surgery Orthopaedic Surgery of the Spine
DX: M48.06 Spinal stenosis, lumbar region (principal); I47.1 Supraventricular tachycardia; Z86.711 Personal history of pulmonary embolism; Z79.82 Long term (current) use of aspirin; Z79.899 Other long term (current) drug therapy

== ENCOUNTER 2017-02-16 18:46 | Inpatient (IN) | payer OTHER ==
[~2017-02-16] VITALS: Ht 182.9 cm; Wt 90.4 kg
[~2017-02-16 18:46] MED LIST changes: -CMD5 PO; -CMD75 PO
[2017-02-16] MEDS ORDERED: SODIUM CHLORIDE 0.9% 1000ML 1,000 ML IV STA (20:40)
[2017-02-16] MEDS ORDERED: HYDROmorphone INJ 0.5 MG/0.5 ML SYR IV STA (20:40)
[2017-02-16] MEDS ORDERED: OPTIRAY 320 IV PRN (20:45)
[2017-02-16 20:55] LABS: BASO % 0.2 %; BASO ABS # 0.01 K/uL (0-0.2); COMPLETE YES; EOS % 7.3 %; HEMATOCRIT 35.1 % (42-52); IG% 1.1 %; LYMPH % 18.2 %; LYMPH ABS # 0.85 K/uL (1.2-3.4); MEAN CELL VOLUME 91.2 fL (80-100); MEAN CORPUSCULAR HEMOGLOBIN 32.2 pg (25-34); MEAN CORPUSCULAR HGB CONC 35.3 g/dl (32-36); MEAN PLATELET VOLUME 9.2 fL (7.4-10.4); MONO % 17.6 %; NEUT % 55.6 %; PLATELET COUNT 164 K/uL (130-400); RED BLOOD COUNT 3.85 M/uL (4.7-6.1); WHITE BLOOD COUNT 4.66 K/uL (4.8-10.8)
[2017-02-16 21:02] LABS: PROTHROMBIN TIME (PATIENT) 10.2 SECONDS (9.0-12.0)
--- NOTE | 2017-02-16 21:02 | EMERGENCY ROOM VISIT NOTE ---
History Report prepared by Juni: Danish Reid Under the Supervision of: Dr. Lisa Ellison D.O. First contact with patient: 19:47 Chief Complaint: REFERRED BY DOCTOR Stated Complaint: REFERRED BY DOC History of Present Illness The patient is a 76 year old male who presents to the Emergency Room with complaints of worsening, severe, right hip and leg pain beginning 9 days ago. The patient reports that he had surgery 3 weeks ago for his spine. He states that he went to have his sutures removed 9 days ago and was told to start walking more. The patient notes that he started walking around and developed a dull pain in his right hip. He states that this week, his pain has severely increased. The patient reports that his pain is most persistent in the mornings when he wakes up. He notes that three days ago he woke with excruciating pain. The patient states that he could not move his right leg secondary to pain. He reports that he took gabapentin and applied ice packs; after two hours, he states his pain was reduced to tolerable, and he continued his day. The patient notes that he developed bilateral edema in his feet that morning as well. He states that yesterday, the pain was bad when he woke, but subsided quicker than the day before. The patient reports that the edema in his feet continued to worsen, and they are now tingly. He notes that a few days ago, he went to see his doctor, and had blood drawn. The patient states that he was told his blood looked thick. He reports that he altered his aspirin dosage from a baby aspirin to a full aspirin. The patient notes that he went to his PCP today for an ultrasound of his leg. He states that he was told he had bilateral DVTs. The patient reports that he developed a fever and non-productive cough the past few days. He denies, palpitations, shortness of breath, chest pain, chest pressure, coughing up blood, and coughing up sputum. The patient notes that he has a history of blood clots in his lungs, and he was place on 5mg of Coumadin for 6- 12 months. Source of History: patient Onset: 9 days ago Position: pelvis (right), leg (right) Symptom Intensity: excruciating Timing: worsening Modifying Factors (Worsening): movement Modifying Factors (Relieving): ice, other (gabapentin) Associated Symptoms: + fevers, + cough, No chest pain, No SOB Note: Associated symptoms: thick blood, edema in his feet, tingling in his feet He denies, palpitations, chest pressure, coughing up blood, and coughing up sputum. Review of Systems See HPI for pertinent positives & negatives. A total of 10 systems reviewed and were otherwise negative. Past Medical & Surgical Medical Problems: (1) Aortic root dilatation (2) Dyslipidemia (3) Lower leg DVT (deep venous thromboembolism), acute (4) Oth Pulmon Embolism/Infarct (5) Paroxysmal SVT (supraventricular tachycardia) (6) Pulmonary embolism (7) TIA (transient ischemic attack) Surgical Problems: (1) H/O left knee surgery (2) H/O nasal polypectomy (3) History of back surgery (4) Hx of cholecystectomy Family History FH: Parkinson's disease BROTHER FH: heart disease FATHER (fatal [place] at age 48) Social History Smoking Status: Never Smoker Alcohol Use: none Marital Status: Occupation Status: employed Current/Historical Medications Scheduled Aspirin (Aspirin Chewable), 81 MG PO QAM B-Complex Vitamins (Vitamin B Complex), 1 TAB PO QAM Cholecalciferol (Vitamin D), 5,000 UNITS PO QAM Digoxin (Digoxin), 0.125 MG PO HS Krill Oil (Krill Oil), 1,000 MG PO QAM Magnesium Oxide (Mg Supplement (Magnesium), 400 MG PO QAM Metoprolol Tartrate (Lopressor), 25 MG PO BID Rosuvastatin Calcium (Crestor), 5 MG PO QPM Tamsulosin Hcl (Flomax), 0.4 MG PO QPM Scheduled PRN Azelastine Hcl (Astelin Nasal [place]), 1-2 SPRAYS NA BID PRN for CONGESTION Diclofenac Sodium (Topical) (Voltaren 1% Top Gel), 1 DOSE EXT DIRECTED PRN for Pain Fluticasone Propionate (Nasal) (Flonase Allergy Relief), 1 SPRAY REILLY DAILY PRN for PRN Gabapentin (Neurontin), 300 MG PO BID PRN for Pain Hydrocodone/Acetaminophen 5MG/325MG ([place] 5MG/325MG), 1 TABLET PO Q4 PRN for Pain Ibuprofen Tab (Advil), 400 MG PO Q4 PRN for Pain Quinine Sulfate (Quinine Sulfate), 324 MG PO HS PRN for LEG CRAMPING Allergies Coded Allergies: Sulfa Antibiotics (Verified Allergy, Unknown, PT UNSURE OF RXN, CHILDHOOD , 01/26/17) Physical Exam Vital Signs Date Time Temp Pulse Resp B/P (MAP) Pulse Ox O2 Delivery O2 Flow Rate FiO2 02/16/17 22:01 98 18 158/80 95 Room Air 02/16/17 19:20 84 02/16/17 18:58 36.9 95 18 134/79 95 Room Air Physical Exam GENERAL: alert, well appearing, well nourished, no distress, non-toxic EYE EXAM: normal conjunctiva, PERRL and EOM's grossly intact OROPHARYNX: no exudate, no erythema, lips, buccal mucosa, and tongue normal and mucous membranes are moist NECK: supple, no nuchal rigidity, no adenopathy, non-tender LUNGS: Clear to auscultation. Normal chest wall mechanics HEART: no murmurs, S1 normal and S2 normal ABDOMEN: abdomen soft, non-tender, normo-active bowel sounds, no masses, no rebound or guarding. BACK: Back is symmetrical on inspection and there is no deformity, no midline tenderness, no CVA tenderness. SKIN: no rashes and no bruising UPPER EXTREMITIES: upper extremities are grossly normal. LOWER EXTREMITIES: 1+ bilateral pitting edema. NEURO EXAM: Normal sensorium, cranial nerves II-XII grossly intact, normal speech, no gross weakness of arms, no gross weakness of legs. Medical Decision & Procedures ER Provider Diagnostic Interpretation: CT:Per my review, radiologist interpretation. (CHEST FOR PE) ANGIO WITH CLINICAL HISTORY: 76 years-old Male presenting with chest pain, shortness of breath, clinical concern for pulmonary embolus, history of pulmonary embolus. TECHNIQUE: Multidetector CT angiography of the chest was performed after administration of intravenous contrast. 3-D volumetric and maximum intensity projection (MIP) images were subsequently reconstructed for review. IV contrast: 104 mL of Optiray 320. A dose lowering technique was used consistent with the principles of ALARA (as low as reasonably achievable). COMPARISON: 05/23/2012. CT DOSE (mGy.cm): The estimated cumulative dose is 411.31 mGy.cm. FINDINGS: Intermission Coordinator topogram: Unremarkable. Pulmonary vasculature: The study is adequate for assessment of the pulmonary vascular tree. Filling defect consistent with acute pulmonary embolus in the right upper lobe segmental pulmonary arteries as well as in the right interlobar pulmonary artery extending into the segmental lower lobe arteries. Subsegmental pulmonary emboli also noted in the left lower lobe. Main pulmonary artery top normal in size. No flattening of the interventricular septum. No intracardiac filling defect. Remaining chest: On soft tissue windows, normal thyroid and thoracic inlet. Scattered subcentimeter mediastinal lymph nodes, likely reactive. Possible few small hilar lymph nodes. Atherosclerosis of the descending thoracic aorta. Normal heart size. Coronary artery calcification. No pericardial or pleural effusion. Cholecystectomy clips. On lung windows, dependent consolidation, right greater than left. Calcified pleural plaques most prominently at the apices. Airways patent. Bronchial wall thickening noted in the right lower lobe. On bone windows, degenerative changes of the spine. IMPRESSION: 1. Multiple bilateral acute pulmonary emboli. No radiographic evidence of heart strain. Pulmonary emboli burden greatest in the right lower lobe, where consolidative changes are also greatest. The distribution of consolidation is not convincing for pulmonary infarct at this time, although this cannot be excluded. Nonetheless, pulmonary emboli are considered the most likely cause of these opacities with infection or aspiration less likely. The report will be called/faxed according to standard departmental protocol. Electronically signed by: Luis Goldstein M.D. 02/16/2017 10:22 PM Dictated Date/Time: 02/16/2017 10:15 PM Laboratory Results Test 02/16/17 19:20 Immature Granulocyte % (Auto) 1.1 % White Blood Count 4.66 K/uL (4.8-10.8) Red Blood Count 3.85 M/uL (4.7-6.1) Hemoglobin 12.4 g/dL (14.0-18.0) Hematocrit 35.1 % (42-52) Mean Corpuscular Volume 91.2 fL (80-100) Mean Corpuscular Hemoglobin 32.2 pg (25-34) Mean Corpuscular Hemoglobin Concent 35.3 g/dl (32-36) Platelet Count 164 K/uL (130-400) Mean Platelet Volume 9.2 fL (7.4-10.4) Neutrophils (%) (Auto) 55.6 % Lymphocytes (%) (Auto) 18.2 % Monocytes (%) (Auto) 17.6 % Eosinophils (%) (Auto) 7.3 % Basophils (%) (Auto) 0.2 % Neutrophils # (Auto) 2.59 K/uL (1.4-6.5) Lymphocytes # (Auto) 0.85 K/uL (1.2-3.4) Monocytes # (Auto) 0.82 K/uL (0.11-0.59) Eosinophils # (Auto) 0.34 K/uL (0-0.5) Basophils # (Auto) 0.01 K/uL (0-0.2) Immature Granulocyte # (Auto) 0.05 K/uL (0.00-0.02) Total Bilirubin 0.5 mg/dl (0.2-1) Aspartate Amino Transf (AST/SGOT) 18 U/L (15-37) Alanine Aminotransferase (ALT/SGPT) 24 U/L (12-78) Alkaline Phosphatase 61 U/L (45-117) Troponin I < 0.015 ng/ml (0-0.045) Total Protein 6.3 gm/dl (6.4-8.2) Albumin 2.9 gm/dl (3.4-5.0) Globulin 3.4 gm/dl (2.5-4.0) Albumin/Globulin Ratio 0.9 (0.9-2) Laboratory results per my review. Medications Administered Medications (Trade) Dose Ordered Sig/Cathy Route Start Time Stop Time Status Last Admin Dose Admin Hydromorphone HCl (Dilaudid Inj) 0.5 mg NOW STAT IV 02/16/17 20:40 02/16/17 20:42 DC 02/16/17 21:03 0.5 MG Sodium Chloride 1,000 ml @ 125 mls/hr Q8H STAT IV 02/16/17 20:40 02/17/17 01:12 DC 02/16/17 20:40 125 MLS/HR ECG Indication: other (bilateral leg pain) Rate (beats per minute): 87 Rhythm: normal sinus Findings: no acute ischemic change, left axis deviation, no ectopy, other ( Normal interval, no evidence of right heart strain) ED Course 2030: The patient was evaluated in room C01B. A complete history and physical exam was performed. 2039: Ordered Sodium Chloride 1000 ml @ 125 mls/hr IV, Dilaudid Inj 0.5mg IV 2236: Ordered Heparin/Sodium 1 ea N/A 2239: Upon reevaluation, the patient is resting comfortably. I discussed the findings and the treatment plan with the patient. He expresses agreement and understanding. 2241: I spoke with Dr. Bui of the [facility] Service. He will be evaluated for further management. Medical Decision Differential diagnosis: Etiologies such as DVT, musculoskeletal, infection, joint effusion, trauma, lymphedema, idiopathic, CHF, as well as others were entertained.. Patient with recent surgery and limited mobility, was mobility has been increasing, he develop worsening lower extremity edema which she was concerned is related to lymphedema or congestive heart failure. Patient found an outpatient Doppler study have bilateral DVTs and sent here as a precaution for possible treatment. Given patient's cough, prior history of PE, and no known DVTs he was sent for CT angios chest which revealed multiple bilateral PEs. Patient started on a heparin drip following this finding. Patient's vital signs stable throughout, no evidence of right heart strain on EKG, negative troponin. Patient with no chest pain or trouble breathing during my evaluation. Patient aware of all results, need for evaluation and admission, he verbalized understanding was agreeable with plan. Medication Reconcilliation Current Medication List: was personally reviewed by me Blood Pressure Screening Patient's blood pressure: Elevated blood pressure Blood pressure disposition: Elevated BP felt to be situational Consults Time Called: [phone] Consulting Physician: Dr. Bui, [facility] Returned Call: [phone] Bui of the [facility] Service. He will be evaluated for further management. Impression Primary Impression: Bilateral pulmonary embolism Additional Impressions: DVT, bilateral lower limbs Status post surgery Critical Care I have personally spent 35 minutes of critical care time in the direct management of this patient. This includes bedside care, interpretation of diagnostic studies, and testing, discussion with consultants, patient, and family members, and other required patient management activities. This 35 minutes is in excess of all separately billable procedures. Scribe Attestation The scribe's documentation has been prepared under my direction and personally reviewed by me in its entirety. I confirm that the note above accurately reflects all work, treatment, procedures, and medical decision making performed by me. Departure Information Dispostion Being Evaluated By Hospitalist Referrals Dana Aponte M.D. (PCP) Patient Instructions My [facility] Problem Qualifiers Additional Impressions: DVT, bilateral lower limbs Affected thrombotic vein of extremity: popliteal Chronicity: acute Qualified Codes: I82.433 - Acute embolism and thrombosis of popliteal vein, bilateral
[2017-02-16 21:07] LABS: ALT/SGPT 24 U/L (12-78); AST/SGOT 18 U/L (15-37); BLOOD UREA NITROGEN 21 mg/dl (7-18); BUN/CREATININE RATIO 21.5 (10-20); CALCIUM 8.7 mg/dl (8.5-10.1); CARBON DIOXIDE 28 mmol/L (21-32); CHLORIDE 104 mmol/L (98-107); CREATININE 0.96 mg/dl (0.60-1.40); GLUCOSE 98 mg/dl (70-99); POTASSIUM 4.1 mmol/L (3.5-5.1); SODIUM 137 mmol/L (136-145)
[2017-02-16 21:12] LABS: ALB/GLOB RATIO 0.9 (0.9-2); ALKALINE PHOSPHATASE 61 U/L (45-117)
--- NOTE | 2017-02-16 22:23 | DIAGNOSTIC IMAGING REPORT ---
(CHEST FOR PE) ANGIO WITH CLINICAL HISTORY: 76 years-old Male presenting with chest pain, shortness of breath, clinical concern for pulmonary embolus, history of pulmonary embolus. TECHNIQUE: Multidetector CT angiography of the chest was performed after administration of intravenous contrast. 3-D volumetric and maximum intensity projection (MIP) images were subsequently reconstructed for review. IV contrast: 104 mL of Optiray 320. A dose lowering technique was used consistent with the principles of ALARA (as low as reasonably achievable). COMPARISON: 05/23/2012. CT DOSE (mGy.cm): The estimated cumulative dose is 411.31 mGy.cm. FINDINGS: Rivet Flunky topogram: Unremarkable. Pulmonary vasculature: The study is adequate for assessment of the pulmonary vascular tree. Filling defect consistent with acute pulmonary embolus in the right upper lobe segmental pulmonary arteries as well as in the right interlobar pulmonary artery extending into the segmental lower lobe arteries. Subsegmental pulmonary emboli also noted in the left lower lobe. Main pulmonary artery top normal in size. No flattening of the interventricular septum. No intracardiac filling defect. Remaining chest: On soft tissue windows, normal thyroid and thoracic inlet. Scattered subcentimeter mediastinal lymph nodes, likely reactive. Possible few small hilar lymph nodes. Atherosclerosis of the descending thoracic aorta. Normal heart size. Coronary artery calcification. No pericardial or pleural effusion. Cholecystectomy clips. On lung windows, dependent consolidation, right greater than left. Calcified pleural plaques most prominently at the apices. Airways patent. Bronchial wall thickening noted in the right lower lobe. On bone windows, degenerative changes of the spine. IMPRESSION: 1. Multiple bilateral acute pulmonary emboli. No radiographic evidence of heart strain. Pulmonary emboli burden greatest in the right lower lobe, where consolidative changes are also greatest. The distribution of consolidation is not convincing for pulmonary infarct at this time, although this cannot be excluded. Nonetheless, pulmonary emboli are considered the most likely cause of these opacities with infection or aspiration less likely. The report will be called/faxed according to standard departmental protocol. Electronically signed by: Luis Goldstein M.D. 02/16/2017 10:22 PM Dictated Date/Time: 02/16/2017 10:15 PM
--- NOTE | 2017-02-16 22:51 | History and Physical ---
History & Physical Date & Time of Service: Feb 16, 2017 at 22:51 Chief Complaint: Referred By Doc Primary Care Physician: Dana Aponte M.D. History of Present Illness Source: patient This is a 76 yo Male with hx of Prior PE ( in 2013 /was on Anticoagulation with Coumadin for 6 months ) , lumber spinal stenosis , underwent recent lumber spinal decompression surgery -Laminectomy L2-L4 with bilateral spinal decompression by Dr Blake on 01/26/17 pt had an uneventful post op recovery , was discharged home mentions his back pain and associated rt sided radiculopathy had improved markedly after surgery was discharged on Aspirin 81 mg daily ( pt was on it chronically ) has been active had sutures removed from surgical site on POD #9 few days back started to experience severe rt sided pelvic pain with radiation pain to right upper thigh , has been taking pain medications /giving ice packs with no improvement also last weekend noted significant swelling of both legs R> L pt contacted his family physician -was directed to [facility] for lower ext Doppler USG of lower ext shows bilateral occlusive DVT pt came to ED , CTA of chest shows multiple bilateral PE , R> L no evidence of cardiac strain noted on imaging pt denies of any SOB , GARCIA , palpitation , chest discomfort or dizzy spell no hypoxia noted no cough pt started on IV heparin wt based protocol , Coumadin ordered for full anticoagulation will be admitted to Telemetry unit Past Medical/Surgical History Medical Problems: (1) Aortic root dilatation Permanent Comment: mild on echo 11/2016 Status: Chronic (2) Dyslipidemia Status: Chronic (3) Oth Pulmon Embolism/Infarct Status: Resolved (4) Paroxysmal SVT (supraventricular tachycardia) Status: Chronic (5) TIA (transient ischemic attack) Status: Chronic Surgical Problems: (1) H/O left knee surgery Status: Chronic (2) H/O nasal polypectomy Status: Chronic (3) History of back surgery Status: Chronic (4) Hx of cholecystectomy Status: Chronic Family History FH: Parkinson's disease BROTHER FH: heart disease FATHER (fatal [place] at age 48) Social History Smoking Status: Never Smoker Marital Status: Housing status: lives with family Occupational Status: employed Immunizations History of Influenza Vaccine: No History of Tetanus Vaccine?: Yes History of Pneumococcal: No History of Hepatitis B Vaccine: Unknown Multi-Drug Resistant Organisms History of MDRO: No Allergies Coded Allergies: Sulfa Antibiotics (Verified Allergy, Unknown, PT UNSURE OF RXN, CHILDHOOD , 01/26/17) Home Medications Scheduled Aspirin (Aspirin Chewable), 81 MG PO QAM B-Complex Vitamins (Vitamin B Complex), 1 TAB PO QAM Cholecalciferol (Vitamin D), 5,000 UNITS PO QAM Digoxin (Digoxin), 0.125 MG PO HS Krill Oil (Krill Oil), 1,000 MG PO QAM Magnesium Oxide (Mg Supplement (Magnesium), 400 MG PO QAM Metoprolol Tartrate (Lopressor), 25 MG PO BID Rosuvastatin Calcium (Crestor), 5 MG PO QPM Tamsulosin Hcl (Flomax), 0.4 MG PO QPM Scheduled PRN Azelastine Hcl (Astelin Nasal [place]), 1-2 SPRAYS NA BID PRN for CONGESTION Diclofenac Sodium (Topical) (Voltaren 1% Top Gel), 1 DOSE EXT DIRECTED PRN for Pain Fluticasone Propionate (Nasal) (Flonase Allergy Relief), 1 SPRAY REILLY DAILY PRN for PRN Gabapentin (Neurontin), 300 MG PO BID PRN for Pain Hydrocodone/Acetaminophen 5MG/325MG (Wall 5MG/325MG), 1 TABLET PO Q4 PRN for Pain Ibuprofen Tab (Advil), 400 MG PO Q4 PRN for Pain Quinine Sulfate (Quinine Sulfate), 324 MG PO HS PRN for LEG CRAMPING Review of Systems Respiratory: No cough, No sputum, No wheezing, No shortness of breath, No dyspnea on exertion, No dyspnea at rest, No hemoptysis, No problem reported Cardiovascular: No chest pain, No orthopnea, No PND, No edema, No claudication , No palpitations, No problem reported Abdomen: No pain, No nausea, No vomiting, No diarrhea, No constipation, No GI bleeding, No problem reported Musculoskeletal: + swelling (bilateral lower extremity swelling ), + calf pain , + problem reported (right sided severe low back pain with radiation to upper thigh ) Neurologic: No memory loss, No paralysis, No weakness, No numbness/tingling, No vertigo, No balance problems, No problem reported Physical Exam Vital Signs Date Time Temp Pulse Resp B/P (MAP) Pulse Ox O2 Delivery O2 Flow Rate FiO2 02/16/17 22:01 98 18 158/80 95 Room Air 02/16/17 19:20 84 02/16/17 18:58 36.9 95 18 134/79 95 Room Air General Appearance: WD/WN Head: normocephalic, atraumatic Eyes: normal inspection, PERRL, EOMI, sclerae normal Neck: supple, thyroid normal, no JVD, no carotid bruits, trachea midline Respiratory/Chest: chest non-tender, lungs clear, normal breath sounds, no respiratory distress Cardiovascular: regular rate, rhythm, no edema, no gallop, no JVD, no murmur, normal peripheral pulses Abdomen/GI: normal bowel sounds, non tender, soft Extremities/Musculoskelatal: + calf tenderness, + pedal edema (+ 2 bilateral pedal edema ; ) Neurologic/Psych: no motor/sensory deficits, alert, oriented x 3 Diagnostics Laboratory Results Results Past 24 Hours Test 02/16/17 19:20 Range/Units White Blood Count 4.66 4.8-10.8 K/uL Red Blood Count 3.85 4.7-6.1 M/uL Hemoglobin 12.4 14.0-18.0 g/dL Hematocrit 35.1 42-52 % Mean Corpuscular Volume 91.2 80-100 fL Mean Corpuscular Hemoglobin 32.2 25-34 pg Mean Corpuscular Hemoglobin Concent 35.3 32-36 g/dl Platelet Count 164 130-400 K/uL Mean Platelet Volume 9.2 7.4-10.4 fL Neutrophils (%) (Auto) 55.6 % Lymphocytes (%) (Auto) 18.2 % Monocytes (%) (Auto) 17.6 % Eosinophils (%) (Auto) 7.3 % Basophils (%) (Auto) 0.2 % Neutrophils # (Auto) 2.59 1.4-6.5 K/uL Lymphocytes # (Auto) 0.85 1.2-3.4 K/uL Monocytes # (Auto) 0.82 0.11-0.59 K/uL Eosinophils # (Auto) 0.34 0-0.5 K/uL Basophils # (Auto) 0.01 0-0.2 K/uL RDW Standard Deviation 50.4 36.4-46.3 fL RDW Coefficient of Variation 15.1 11.5-14.5 % Immature Granulocyte % (Auto) 1.1 % Immature Granulocyte # (Auto) 0.05 0.00-0.02 K/uL Prothrombin Time 10.2 9.0-12.0 SECONDS Prothromb Time International Ratio 1.0 0.9-1.1 Sodium Level 137 136-145 mmol/L Potassium Level 4.1 3.5-5.1 mmol/L Chloride Level 104 98-107 mmol/L Carbon Dioxide Level 28 21-32 mmol/L Anion Gap 5.0 3-11 mmol/L Blood Urea Nitrogen 21 7-18 mg/dl Creatinine 0.96 0.60-1.40 mg/dl Est Creatinine Clear Calc Drug Dose 74.0 ml/min Estimated GFR () 88.6 Estimated GFR (Non- 76.5 BUN/Creatinine Ratio 21.5 10-20 Random Glucose 98 70-99 mg/dl Calcium Level 8.7 8.5-10.1 mg/dl Total Bilirubin 0.5 0.2-1 mg/dl Aspartate Amino Transf (AST/SGOT) 18 15-37 U/L Alanine Aminotransferase (ALT/SGPT) 24 12-78 U/L Alkaline Phosphatase 61 45-117 U/L Troponin I < 0.015 0-0.045 ng/ml Total Protein 6.3 6.4-8.2 gm/dl Albumin 2.9 3.4-5.0 gm/dl Globulin 3.4 2.5-4.0 gm/dl Albumin/Globulin Ratio 0.9 0.9-[address] CHEST WITH CONTRAST : IMPRESSION: 1. Multiple bilateral acute pulmonary emboli. No radiographic evidence of heart strain. Pulmonary emboli burden greatest in the right lower lobe, where consolidative changes are also greatest. The distribution of consolidation is not convincing for pulmonary infarct at this time, although this cannot be excluded. Nonetheless, pulmonary emboli are considered the most likely cause of these opacities with infection or aspiration less likely. BILATERAL LOWER EXTREMITY DOPPLER : FINDINGS: Right: Common femoral vein: Patent. Femoral vein: Patent. Greater saphenous vein: Patent. Popliteal vein: Patent. Calf veins: Occlusive filling defect consistent with thrombus in the posterior tibial and peroneal veins. Left: Common femoral vein: Patent. Femoral vein: Patent. Greater saphenous vein: Patent. Popliteal vein: Occlusive filling consistent with thrombus. Calf veins: Occlusive filling defect consistent with thrombus in the posterior tibial and peroneal veins. Other: Suspected left popliteal cyst. IMPRESSION: Bilateral deep venous thrombosis in the calf veins. Acute thrombosis extends into the left popliteal vein but remains limited to the calf veins on the right. EKG Normal sinus rhythm with sinus arrhythmia Left anterior fascicular block Minimal voltage criteria for LVH, may be normal variant Abnormal ECG When compared with ECG of 05-AUG-2015 18:46, No significant change was found Impression Assessment and Plan BILATERAL LOWER EXT DVT /PE : had recent lumber spinal decompression surgery done approx 3 weeks back ( on 01/26/[address] Blake at [facility] ) no post op complication , was discharged home , was discharged on Aspirin 81 mg daily active anticoagulation for post orthopedic surgical DVT prophylaxis was avoid for spinal surgery pt mentions of being active at home , was able to do his ADL's , able to yard work was on his feet most part of the day 2-3 days back pt had blood work done at [facility] ,was concerned regarding his blood being " too thick " he started to take 2 Baby Aspirin ( 81 mg ) in morning and 1 aspirin at night developed bilateral lower ext swelling R> L few days back , associated with sever pain on lower back with radiation to rt upper thigh ( his symptoms were resolved post op ) contacted His family physician at [facility] out pt Lower ext Doppler ordered , shows bilateral occlusive lower ext DVT extending popliteal veins pt is asked to come to ED for eval CTA of chest shows numerous small PE bilaterally R> L pt is not hypoxic at present , normal vitals in the ER started empirically with IV heparin wt based protocol will be admitted to Tele for close monitoring of hemodynamic ECHO in Am to assess evidence of rt heart strain Coumadin 7.5 mg PO daily ordered pt is approx 3 weeks post op for spinal decompression surgery may be safe to transition to Sub q Lovenox therapeutic dose/bridge in next 24- 48 hrs prior to discharge home will need total 5 days of bridge therapy with overlap to at least 2 days while INR therapeutic ~2 will need to establish care with Coumadin clinic at [facility] PRIOR HX OF PE : In 2013 , was on Coumadin for 6 months hypercoagulable work up ( Factor 5 Leiden , antithrombin 3 , ) ordered - reference lab may take 2 weeks for the result to be available given repeated hx of Thromboembolic event and bilateral PE /DVT will recommend usp anticoagulation may need long therapy if hypercoagulable work up is positive recommend Heme onc follow as out patient as well for further recommendation / guideline for anticoagulation status RECENT SPINAL DECOMPRESSION STATUS : symptoms of back pain improved post op but recurrence with worse pain few days back associated with rt sided radiculopathy spinal orthopedics Dr Blake consulted ordered for PT/OT FULL CODE DVT PROPHYLAXIS : IV HEPARIN /COUMADIN DISPOSITION ; PT/OT eval prior to discharged Medicine follow up with Dr Ivonne Ruiz Level of Care Telemetry Resuscitation Status FULL RESUSCITATION VTE Prophylaxis Given or contraindicated: Warfarin (Coumadin), Other Anticoagulation (IV HEPARIN) Additional Copies To Ivonne Ruiz D.O.
[2017-02-16] MEDS ORDERED: POLYETHYLENE (MIRALAX) 17 GM PACK PO PRN (23:00)
[2017-02-16] MEDS ORDERED: ZOLPIDEM TARTRATE 5 MG TAB PO PRN (23:00)
[2017-02-16] MEDS ORDERED: ALUMINUM/MAGNESIUM/SIMETH (MAALOX MAX) 30 ML UDC PO PRN (23:00)
[2017-02-16] MEDS ORDERED: ACETAMINOPHEN 325 MG TAB PO PRN (23:00)
[2017-02-16] MEDS ORDERED: NITROGLYCERIN 0.4 MG SL PER TAB CHARGE SL PRN (23:00)
[2017-02-16] MEDS ORDERED: MAGNESIUM HYDROXIDE SUSP 30 ML UDC PO PRN (23:00)
[2017-02-16] MEDS ORDERED: ONDANSETRON INJ 2 MG/ML 2 ML VIAL IV PRN (23:00)
[2017-02-16] MEDS ORDERED: HEPARIN SOD (PORCINE) 1000 UNIT/ML 10 ML VIAL ONE (23:08)
[2017-02-16] MEDS ORDERED: HEPARIN 25000 UNIT/500 ML D5W ONE (23:09)
[2017-02-16] MEDS: HEPARIN 25,000 UNIT/500ML D5W 500 ML IV PRN (23:29)
[2017-02-16 23:37] LABS: PARTIAL THROMBOPLASTIN RATIO 1.1
[2017-02-17 00:42] VITALS: BP 148/77; PULSE 99; TEMP 37.2; O2SAT 96; Ht 182.9 cm; Wt 90.4 kg
[2017-02-17] MEDS ORDERED: DICLOFENAC SOD 1% GEL 100 GM TUBE EXT PRN (01:30)
[2017-02-17] MEDS ORDERED: FLUTICASONE PROPIONATE NA SPR 16 GM BTL NAE PRN (01:30)
[2017-02-17] MEDS ORDERED: QUINine SULFATE CAP 324 MG CAP PO PRN (01:30)
[2017-02-17 03:20] VITALS: BP 120/66; PULSE 90; TEMP 37.1; O2SAT 96
[2017-02-17] MEDS: HYDROCODONE/ACETAMOPHEN 5/325MG TAB PO PRN ×3 (04:13→20:42)
[2017-02-17 06:07] LABS: HEMATOCRIT 31.2 % (42-52); MEAN CELL VOLUME 91.5 fL (80-100); MEAN CORPUSCULAR HEMOGLOBIN 31.7 pg (25-34); MEAN CORPUSCULAR HGB CONC 34.6 g/dl (32-36); MEAN PLATELET VOLUME 8.4 fL (7.4-10.4); PLATELET COUNT 136 K/uL (130-400); RED BLOOD COUNT 3.41 M/uL (4.7-6.1); WHITE BLOOD COUNT 3.46 K/uL (4.8-10.8)
[2017-02-17 06:36] LABS: INR 1.1 (0.9-1.1); PARTIAL THROMBOPLASTIN RATIO 3.4; PROTHROMBIN TIME (PATIENT) 11.4 SECONDS (9.0-12.0)
[2017-02-17 06:37] LABS: BUN/CREATININE RATIO 20.6 (10-20); CALCIUM 8.1 mg/dl (8.5-10.1); CREATININE 0.78 mg/dl (0.60-1.40); MAGNESIUM 1.8 mg/dl (1.8-2.4); POTASSIUM 3.9 mmol/L (3.5-5.1)
[2017-02-17 07:38] VITALS: BP 124/69; PULSE 83; TEMP 36.9; O2SAT 95
[2017-02-17] MEDS: METOPROLOL TARTRATE 25 MG TAB PO SCH ×2 (08:35→20:37)
[2017-02-17] MEDS: DOCUSATE SODIUM 100 MG CAP PO SCH ×2 (08:35→20:37)
[2017-02-17] MEDS: VITAMIN B COMPLEX TAB PO SCH (08:36)
[2017-02-17] MEDS: CHOLECALCIFEROL 1000 INTER.UNIT TAB PO SCH (08:36)
[2017-02-17] MEDS: MAGNESIUM OXIDE 400 MG TAB PO SCH (08:36)
[2017-02-17] MEDS: ASPIRIN 81 MG ECTAB PO SCH (08:36)
[2017-02-17] MEDS ORDERED: NON-FORMULARY MEDICATION (Krill Oil 1,000 MG) PO SCH (09:00)
[2017-02-17] MEDS ORDERED: ASPIRIN 81 MG CHEW PO SCH ×2 (09:00)
[2017-02-17 11:54] VITALS: BP 113/64; PULSE 72; TEMP 37; O2SAT 95
[2017-02-17 14:55] LABS: PARTIAL THROMBOPLASTIN RATIO 2.5
[2017-02-17 15:24] VITALS: BP 147/79; PULSE 99; TEMP 36.9; O2SAT 96
[2017-02-17] MEDS: WARFARIN SOD 7.5 MG TAB PO SCH (16:25)
--- NOTE | 2017-02-17 18:23 | Progress Note ---
Internal Med Progress Note Date of Service: Feb 17, 2017. Provider Documentation: SUBJECTIVE: The patient was seen and examined Admitted with Bilateral leg pain and swelling Noted to have bilateral legs DVT and PE H/O PE OBJECTIVE: Vital Signs-as noted below Exam: General-No distress at rest Eyes-normal ENT-normal Neck-supple Lungs-Clear to auscultate bilaterally Heart-Regular Abdomen-V=Benign,no masses,bowel sound present Extremities-1+ edema bilaterally Neuro-AAOx3 Lab data as noted below. ASSESSMENT & PLAN: BILATERAL LOWER EXT DVT WITH PULMONARY EMBOLISM -had recent lumber spinal decompression surgery done approx 3 weeks back ( on done by Dr Blake at [facility] ) -no post op complication , was discharged home ,- -was discharged on Aspirin 81 mg daily and has been reasonably active following discharge -2-3 days back pt had blood work done at [facility] ,was concerned regarding his blood being " too thick " -he started to take 2 Baby Aspirin ( 81 mg ) in morning and 1 aspirin at night -was seen in the Clinic for swelling of legs -out pt Lower ext Doppler ordered , shows bilateral occlusive lower ext DVT extending popliteal veins CTA of chest shows numerous small PE bilaterally R> L -Started empirically with IV heparin wt based protocol ECHO in Am to assess evidence of rt heart strain Coumadin 7.5 mg PO daily ordered PRIOR HX OF PE : -In 2013 , was on Coumadin for 6 months -hypercoagulable work up ( Factor 5 Leiden , antithrombin 3 , ) ordered - reference lab -given repeated hx of Thromboembolic event and bilateral PE /DVT will recommend intermediate designer anticoagulation -may need long therapy if hypercoagulable work up is positive -recommend Heme onc follow as out patient as well for further recommendation / guideline for anticoagulation status RECENT SPINAL DECOMPRESSION STATUS : -symptoms of back pain improved post op -but recurrence with worse pain few days back associated with rt sided radiculopathy -spinal orthopedics Dr Blake consulted -ordered for PT/OT FULL CODE DVT PROPHYLAXIS : IV HEPARIN /COUMADIN DISPOSITION ; PT/OT eval prior to discharged Medicine follow up with Dr Ivonne Ruiz Vital Signs: Date Time Temp Pulse Resp B/P (MAP) Pulse Ox O2 Delivery O2 Flow Rate FiO2 02/17/17 16:00 Room Air 02/17/17 15:24 36.9 99 20 147/79 (101) 96 Room Air 02/17/17 12:00 Room Air 02/17/17 11:54 37.0 72 18 113/64 (80) 95 Room Air 02/17/17 08:00 Room Air 02/17/17 07:38 36.9 83 17 124/69 (87) 95 Room Air 02/17/17 04:00 Room Air 02/17/17 03:20 37.1 90 20 120/66 (84) 96 Room Air 02/17/17 00:42 37.2 99 18 148/77 96 Room Air 02/16/17 23:31 89 18 137/72 95 Room Air 02/16/17 23:25 90 02/16/17 22:01 98 18 158/80 95 Room Air 02/16/17 19:20 84 02/16/17 18:58 36.9 95 18 134/79 95 Room Air Lab Results: Results Past 24 Hours Test 02/16/17 19:20 02/17/17 05:47 02/17/17 14:14 Range/Units White Blood Count 4.66 3.46 4.8-10.8 K/uL Red Blood Count 3.85 3.41 4.7-6.1 M/uL Hemoglobin 12.4 10.8 14.0-18.0 g/dL Hematocrit 35.1 31.2 42-52 % Mean Corpuscular Volume 91.2 91.5 80-100 fL Mean Corpuscular Hemoglobin 32.2 31.7 25-34 pg Mean Corpuscular Hemoglobin Concent 35.3 34.6 32-36 g/dl Platelet Count 164 136 130-400 K/uL Mean Platelet Volume 9.2 8.4 7.4-10.4 fL Neutrophils (%) (Auto) 55.6 % Lymphocytes (%) (Auto) 18.2 % Monocytes (%) (Auto) 17.6 % Eosinophils (%) (Auto) 7.3 % Basophils (%) (Auto) 0.2 % Neutrophils # (Auto) 2.59 1.4-6.5 K/uL Lymphocytes # (Auto) 0.85 1.2-3.4 K/uL Monocytes # (Auto) 0.82 0.11-0.59 K/uL Eosinophils # (Auto) 0.34 0-0.5 K/uL Basophils # (Auto) 0.01 0-0.2 K/uL RDW Standard Deviation 50.4 50.4 36.4-46.3 fL RDW Coefficient of Variation 15.1 15.0 11.5-14.5 % Immature Granulocyte % (Auto) 1.1 % Immature Granulocyte # (Auto) 0.05 0.00-0.02 K/uL Prothrombin Time 10.2 11.4 9.0-12.0 SECONDS Prothromb Time International Ratio 1.0 1.1 0.9-1.1 Activated Partial Thromboplast Time 28.7 88.5 66.0 21.0-31.0 SECONDS Partial Thromboplastin Ratio 1.1 3.4 2.5 Sodium Level 137 141 136-145 mmol/L Potassium Level 4.1 3.9 3.5-5.1 mmol/L Chloride Level 104 107 98-107 mmol/L Carbon Dioxide Level 28 31 21-32 mmol/L Anion Gap 5.0 3.0 3-11 mmol/L Blood Urea Nitrogen 21 16 7-18 mg/dl Creatinine 0.96 0.78 0.60-1.40 mg/dl Est Creatinine Clear Calc Drug Dose 74.0 88.5 ml/min Estimated GFR () 88.6 101.6 Estimated GFR (Non- 76.5 87.7 BUN/Creatinine Ratio 21.5 20.6 10-20 Random Glucose 98 82 70-99 mg/dl Calcium Level 8.7 8.1 8.5-10.1 mg/dl Total Bilirubin 0.5 0.2-1 mg/dl Aspartate Amino Transf (AST/SGOT) 18 15-37 U/L Alanine Aminotransferase (ALT/SGPT) 24 12-78 U/L Alkaline Phosphatase 61 45-117 U/L Troponin I < 0.015 0-0.045 ng/ml Total Protein 6.3 6.4-8.2 gm/dl Albumin 2.9 3.4-5.0 gm/dl Globulin 3.4 2.5-4.0 gm/dl Albumin/Globulin Ratio 0.9 0.9-2 Magnesium Level 1.8 1.8-2.4 mg/dl
[2017-02-17 19:31] VITALS: BP 144/79; PULSE 75; TEMP 36.3; O2SAT 96
[2017-02-17] MEDS: ROSUVASTATIN CALCIUM 10 MG TAB PO SCH (20:35)
[2017-02-17] MEDS: TAMSULOSIN HCL 0.4 MG CAP PO SCH (20:37)
[2017-02-17] MEDS: DIGOXIN 0.125 MG TAB PO SCH (20:37)
[2017-02-18] VITALS (10 sets, daily range): BP systolic 94–152; BP diastolic 56–82; PULSE 52–111; TEMP 36.5–37; O2SAT 94–97
[2017-02-18 07:07] LABS: INR 1.1 (0.9-1.1); PROTHROMBIN TIME (PATIENT) 11.5 SECONDS (9.0-12.0)
[2017-02-18] MEDS: HYDROCODONE/ACETAMOPHEN 5/325MG TAB PO PRN ×3 (07:23→19:46)
[2017-02-18] MEDS: DOCUSATE SODIUM 100 MG CAP PO SCH ×2 (07:24→19:46)
[2017-02-18] MEDS: ASPIRIN 81 MG ECTAB PO SCH (07:24)
[2017-02-18] MEDS: METOPROLOL TARTRATE 25 MG TAB PO SCH ×2 (07:24→19:49)
[2017-02-18] MEDS: VITAMIN B COMPLEX TAB PO SCH (07:24)
[2017-02-18] MEDS: CHOLECALCIFEROL 1000 INTER.UNIT TAB PO SCH (07:24)
[2017-02-18 07:44] LABS: BUN/CREATININE RATIO 13.5 (10-20); CALCIUM 8.6 mg/dl (8.5-10.1); CREATININE 0.91 mg/dl (0.60-1.40); MAGNESIUM 2.2 mg/dl (1.8-2.4); POTASSIUM 4.5 mmol/L (3.5-5.1)
[2017-02-18 08:10] LABS: PARTIAL THROMBOPLASTIN RATIO 2.5
[2017-02-18] MEDS: MAGNESIUM OXIDE 400 MG TAB PO SCH (09:38)
[2017-02-18] MEDS ORDERED: HYDROmorphone INJ 2 MG/ML SYR/VIAL IV ONE (09:42)
[2017-02-18] MEDS ORDERED: HYDROmorphone INJ 1 MG/ML SYR ONE (09:51)
[2017-02-18] MEDS: HYDROmorphone INJ 2 MG/ML SYR/VIAL IV PRN ×3 (10:18→19:46)
[2017-02-18] MEDS: HEPARIN 25,000 UNIT/500ML D5W 500 ML IV PRN (12:24)
--- NOTE | 2017-02-18 15:01 | ECHOCARDIOGRAM REPORT ---
*NOTICE TO RECEIVING DEMOCRAT AGENCY This information is strictly Confidential and protected under [place] law. [place] law prohibits you from making any further disclosure of this information unless further disclosure is expressly permitted by the written consent of the person to whom it pertains or is authorized by law. A general authorization for the release of medical or other information is not sufficient for this purpose. Hospital accepts no responsibility if the information is made available to any other person, INCLUDING THE PATIENT. Interpretation Summary * Name: IFEOMA PANCHAL Study Date: 02/18/2017 01:43 PM BP: 94/56 mmHg * Patient Location: C.2T\S\S239\S\1 HR: 59 * : 1940 (M/d/yy) Gender: Male Height: 72 in * Age: 76 yrs Ethnicity: CA Weight: 202 lb * Ordering Physician: Zamzam Bui * Referring Physician: Mitchel Sanchez D.O. * Performed By: Alisa Schmidt RDCS * * Reason For Study: PULMONARY HTN * BSA: 2.1 m2 * -- Conclusions -- * The study was technically difficult. * A contrast injection of Definity was performed to improve assessment of LV function. * The left ventricle is normal in size. * There is borderline concentric left ventricular hypertrophy. * The left ventricular wall motion is normal. * Ejection Fraction = 55-60%. * Grade I diastolic dysfunction, (abnormal relaxation pattern). * Borderline aortic root dilatation. * Significant tricuspid regurgitation is absent. * Doppler findings do not suggest pulmonary hypertension. * The right ventricle is normal in size and function. * The left atrial size is normal. * Normal inferior vena cava diameter and respiratory variation suggests normal central venous pressure. Procedure Details * A contrast injection of Definity was performed to improve assessment of LV function. * Contrast was injected into an intravenous site in the right arm. * One vial of Definity ultrasound contrast was diluted in normal saline to a total volume of 10 ml. A total of '2' ml of solution was administered during imaging. * Lot # [id number] of Definity utilized for procedure. * Expiration date APR 12. * The attending nurse who injected the contrast agent was SUSAN MORA RN. * The study was technically difficult. Left Ventricle * The left ventricle is normal in size. * There is borderline concentric left ventricular hypertrophy. * Ejection Fraction = 55-60%. * The left ventricular wall motion is normal. Right Ventricle * The right ventricle is normal in size and function. Atria * The left atrial size is normal. * Right atrial size is normal. Mitral Valve * There is mild posterior mitral annular calcifcation * There is no mitral valve stenosis. * There is no mitral regurgitation noted. Tricuspid Valve * The tricuspid valve is not well visualized, but is grossly normal. * Significant tricuspid regurgitation is absent. * Doppler findings do not suggest pulmonary hypertension. Aortic Valve * The aortic valve is trileaflet. * The aortic valve opens well. * No hemodynamically significant valvular aortic stenosis. * There is no significant aortic regurgitation. Pulmonic Valve * The pulmonic valve is not well visualized. Great Vessels * Borderline aortic root dilatation. * Normal inferior vena cava diameter and respiratory variation suggests normal central venous pressure. Left Ventricular Diastolic Function * Grade I diastolic dysfunction, (abnormal relaxation pattern). MMode 2D Measurements and Calculations Ao root diam 3.7 cm Ao root area 10.8 cm\S\2 LA dimension 4.2 cm LA/Ao 1.1 LVAd ap4 39.1 cm\S\2 LVLd ap4 8.5 cm EDV(MOD-sp4) 144.9 ml EDV(sp4-el) 152.7 ml LVAs ap4 23.8 cm\S\2 LVLs ap4 7.4 cm ESV(MOD-sp4) 67.0 ml ESV(sp4-el) 65.2 ml EF(MOD-sp4) 53.7 % EF(sp4-el) 57.3 % LVAd ap2 34.9 cm\S\2 LVLd ap2 8.7 cm EDV(MOD-sp2) 115.8 ml EDV(sp2-el) 119.0 ml LVAs ap2 20.3 cm\S\2 LVLs ap2 7.1 cm ESV(MOD-sp2) 49.2 ml ESV(sp2-el) 49.4 ml EF(MOD-sp2) 57.6 % EF(sp2-el) 58.5 % LVLd %diff 2.2 % EDV(MOD-bp) 130.2 ml LVLs %diff -4.28 % ESV(MOD-bp) 56.4 ml EF(MOD-bp) 56.7 % SV(MOD-sp4) 77.9 ml SI(MOD-sp4) 36.4 ml/m\S\2 SV(MOD-sp2) 66.7 ml SI(MOD-sp2) 31.2 ml/m\S\2 SV(MOD-bp) 73.8 ml SI(MOD-bp) 34.5 ml/m\S\2 SV(sp4-el) 87.5 ml SI(sp4-el) 40.9 ml/m\S\2 SV(sp2-el) 69.6 ml SI(sp2-el) 32.5 ml/m\S\2 Doppler Measurements and Calculations MV E max lincoln 103.4 cm/sec MV A max lincoln 133.4 cm/sec MV E/A 0.78 MV dec time 0.23 sec Ao V2 max 139.6 cm/sec Ao max PG 7.8 mmHg Ao max PG (full) 4.1 mmHg LV V1 max PG 3.7 mmHg LV V1 max 96.7 cm/sec
[2017-02-18] MEDS: WARFARIN SOD 7.5 MG TAB PO SCH (16:11)
--- NOTE | 2017-02-18 16:11 | Progress Note ---
Internal Med Progress Note Date of Service: Feb 18, 2017. Provider Documentation: SUBJECTIVE: The patient was seen and examined Admitted with Bilateral leg pain and swelling Noted to have bilateral legs DVT and PE H/O PE OBJECTIVE: Vital Signs-as noted below Exam: General-No distress at rest Eyes-normal ENT-normal Neck-supple Lungs-Clear to auscultate bilaterally Heart-Regular Abdomen-V=Benign,no masses,bowel sound present Extremities-1+ edema bilaterally Neuro-AAOx3 Lab data as noted below. ASSESSMENT & PLAN: BILATERAL LOWER EXT DVT WITH PULMONARY EMBOLISM -had recent lumber spinal decompression surgery done approx 3 weeks back ( on done by Dr Blake at [facility] ) -no post op complication , was discharged home -was discharged on Aspirin 81 mg daily and has been reasonably active following discharge -2-3 days back pt had blood work done at [facility] ,was concerned regarding his blood being " too thick " -he started to take 2 Baby Aspirin ( 81 mg ) in morning and 1 aspirin at night -was seen in the Clinic for swelling of legs -out pt Lower ext Doppler ordered , shows bilateral occlusive lower ext DVT extending popliteal veins CTA of chest shows numerous small PE bilaterally R> L -Started empirically with IV heparin wt based protocol ECHO in Am to assess evidence of rt heart strain ::::The study was technically difficult. * A contrast injection of Definity was performed to improve assessment of LV function. * The left ventricle is normal in size. * There is borderline concentric left ventricular hypertrophy. * The left ventricular wall motion is normal. * Ejection Fraction = 55-60%. * Grade I diastolic dysfunction, (abnormal relaxation pattern). * Borderline aortic root dilatation. * Significant tricuspid regurgitation is absent. * Doppler findings do not suggest pulmonary hypertension. * The right ventricle is normal in size and function. * The left atrial size is normal. * Normal inferior vena cava diameter and respiratory variation suggests normal central venous pressure. Coumadin 7.5 mg PO daily ordered No new respiratory symptoms PRIOR HX OF PE : -In 2013 , was on Coumadin for 6 months -hypercoagulable work up ( Factor 5 Leiden , antithrombin 3 , ) ordered - reference lab -given repeated hx of Thromboembolic event and bilateral PE /DVT will recommend detention anticoagulation -may need long therapy if hypercoagulable work up is positive -recommend Heme oncology follow as out patient as well for further recommendation /guideline for anticoagulation status RECENT SPINAL DECOMPRESSION STATUS : -symptoms of back pain improved post op -but recurrence with worse pain few days back associated with rt sided radiculopathy -spinal orthopedics Dr Blake consulted -ordered for PT/OT Has had More pain this morning Dilaudid 1mg q4h as needed Ordred FULL CODE DVT PROPHYLAXIS : IV HEPARIN /COUMADIN DISPOSITION ; PT/OT eval prior to discharged Medicine follow up with Dr Ivonne Ruiz Vital Signs: Date Time Temp Pulse Resp B/P (MAP) Pulse Ox O2 Delivery O2 Flow Rate FiO2 02/18/17 15:52 36.6 52 22 108/68 (81) 97 Room Air 02/18/17 12:04 37.0 59 17 94/56 (69) 94 Room Air 02/18/17 12:00 Room Air 02/18/17 08:00 Room Air 02/18/17 07:57 36.9 69 19 152/80 (104) 96 Room Air 02/18/17 04:00 Room Air 02/18/17 02:43 36.9 64 18 127/70 (89) 95 Room Air 02/18/17 00:01 Room Air 02/18/17 00:01 37.0 65 18 112/67 (82) 96 Room Air 02/17/17 20:51 Room Air 02/17/17 20:37 100 02/17/17 19:31 36.3 75 18 144/79 (100) 96 Room Air Lab Results: Results Past 24 Hours Test 02/18/17 06:37 Range/Units Prothrombin Time 11.5 9.0-12.0 SECONDS Prothromb Time International Ratio 1.1 0.9-1.1 Activated Partial Thromboplast Time 65.4 21.0-31.0 SECONDS Partial Thromboplastin Ratio 2.5 Sodium Level 141 136-145 mmol/L Potassium Level 4.5 3.5-5.1 mmol/L Chloride Level 106 98-107 mmol/L Carbon Dioxide Level 33 21-32 mmol/L Anion Gap 2.0 3-11 mmol/L Blood Urea Nitrogen 12 7-18 mg/dl Creatinine 0.91 0.60-1.40 mg/dl Est Creatinine Clear Calc Drug Dose 75.8 ml/min Estimated GFR () 94.5 Estimated GFR (Non- 81.6 BUN/Creatinine Ratio 13.5 10-20 Random Glucose 88 70-99 mg/dl Calcium Level 8.6 8.5-10.1 mg/dl Magnesium Level 2.2 1.8-2.4 mg/dl
--- NOTE | 2017-02-18 19:25 | DIAGNOSTIC IMAGING REPORT ---
PELVIS/BILATERAL HIP 2 VIEWS CLINICAL HISTORY: 76 years-old Male presenting with R Hip/ leg pain. TECHNIQUE: Single frontal view of the pelvis and frontal and lateral views of the bilateral hips were obtained. COMPARISON: Plain radiographs of the right hip from 12/18/2016. FINDINGS: Posterior lumbar fusion hardware with bone graft material noted spanning from L4 to S1. Osteopenia suggested. No evidence of sacral fracture. Hip joints congruent, although significant degenerative changes evident bilaterally. Mild joint space loss, right greater than left. No acute fracture in the pelvis. No femoral neck fracture. IMPRESSION: No acute osseous injury of the pelvis or bilateral hips. Bilateral degenerative changes of the hips. Electronically signed by: Luis Goldstein M.D. 02/18/2017 7:24 PM Dictated Date/Time: 02/18/2017 7:21 PM
[2017-02-18] MEDS: ROSUVASTATIN CALCIUM 10 MG TAB PO SCH (19:47)
[2017-02-18] MEDS: TAMSULOSIN HCL 0.4 MG CAP PO SCH (19:48)
[2017-02-18] MEDS: DIGOXIN 0.125 MG TAB PO SCH (19:49)
--- NOTE | 2017-02-18 22:21 | Medical Consult ---
Consultation Note Date of Service Feb 18, 2017. Consultation Note CHIEF COMPLAINT: Right hip/leg pain. HISTORY OF PRESENT ILLNESS: Raghavendra is a pleasant 76-year-old male, patient of Dr. Andrew. He has known hip arthritis. He was recently admitted for DVT and PE. He states that his pain runs down the butt cheek of the right leg and when that happens he is unable to straighten his leg. He also states that he had been doing very well the first 2 weeks postoperatively. But earlier in the week started noticing swelling in his legs. He had recently underwent laminectomy of L2-L4 with bilateral spinal decompression on January 26, 2017. Past medical history: (1) Aortic root dilatation Permanent Comment: mild on 11/2016 Status: Chronic (2) Dyslipidemia Status: Chronic (3) Oth Pulmon Embolism/Infarct Status: Resolved (4) Paroxysmal SVT (supraventricular tachycardia) Status: Chronic (5) TIA (transient ischemic attack) Status: Chronic past surgical history: (1) H/O left knee surgery Status: Chronic (2) H/O nasal polypectomy Status: Chronic (3) History of back surgery Status: Chronic (4) Hx of cholecystectomy Status: Chronic . MEDICATIONS: Scheduled Aspirin (Aspirin Chewable), 81 MG PO QAM B-Complex Vitamins (Vitamin B Complex), 1 TAB PO QAM Cholecalciferol (Vitamin D), 5,000 UNITS PO QAM Digoxin (Digoxin), 0.125 MG PO HS Krill Oil (Krill Oil), 1,000 MG PO QAM Magnesium Oxide (Mg Supplement (Magnesium), 400 MG PO QAM Metoprolol Tartrate (Lopressor), 25 MG PO BID Rosuvastatin Calcium (Crestor), 5 MG PO QPM Tamsulosin Hcl (Flomax), 0.4 MG PO QPM Scheduled PRN Azelastine Hcl (Astelin Nasal Amalia), 1-2 SPRAYS NA BID PRN for CONGESTION Diclofenac Sodium (Topical) (Voltaren 1% Top Gel), 1 DOSE EXT DIRECTED PRN for Pain Fluticasone Propionate (Nasal) (Flonase Allergy Relief), 1 SPRAY REILLY DAILY PRN for PRN Gabapentin (Neurontin), 300 MG PO BID PRN for Pain Hydrocodone/Acetaminophen 5MG/325MG ([place] 5MG/325MG), 1 TABLET PO Q4 PRN for Pain Ibuprofen Tab (Advil), 400 MG PO Q4 PRN for Pain Quinine Sulfate (Quinine Sulfate), 324 MG PO HS PRN for LEG CRAMPING ALLERGIES: Sulfa antibiotics. FAMILY HISTORY: Brother with Parkinson's disease. Father had a fatal PA at 48. SOCIAL HISTORY: Nonsmoker, and lives with his family. REVIEW OF SYSTEMS: A 14-point review of systems is noted in the office medical record. PHYSICAL EXAM: Patient is in no acute distress breathing easily at 18 breaths per minute. The patient resting comfortably in a bedside chair. They have an appropriate mood and affect. They weigh 90 kg and are 183 cm tall. Focusing on bilateral lower extremities, 2+ DP pulse, sensation light touch is intact distally, his motor to his gastroc soleus, tibialis anterior, EHL, quads and hamstrings are 5/5. He has no pain with gentle range of motion of his hips knees and ankles bilaterally. He has some mild tenderness to palpation near his initial tuberosity. He has a negative modified straight leg raise. His recent lumbar spine incision in the midline is clean, dry, intact, shows no evidence of infection. RADIOGRAPHS: AP pelvis and AP and lateral bilateral hips, show degenerative changes, no acute fracture or dislocation. IMPRESSION: Right leg pain secondarily to nerve irritation versus pain secondarily to a DVT. PLAN: After a lengthy discussion with the patient today regarding my above clinical findings, as well as reviewing his radiographs, he will be treated conservatively and recommend that he continue ambulation with a walker. He should continue care per the primary service for his DVT and PEs. There is no need for any surgical intervention. He may benefit from Neurontin. He should follow-up with Dr. Blake once he is discharged from the hospital and when Dr. Blake is back in town. Thank you for allowing me to participate in the patient 's care and do not hesitate to recall if there are any orthopedic issues.
[2017-02-18] MEDS ORDERED: METOPROLOL TARTRATE 1 MG/ML VIAL IV PRN (22:30)
[2017-02-18] MEDS ORDERED: METOPROLOL TARTRATE 1 MG/ML VIAL ONE (22:32)
[2017-02-18] MEDS ORDERED: DIGOXIN IV 125 MCG in SYRINGE 9.5 ML IV STA (23:34)
[2017-02-18] MEDS ORDERED: DIGOXIN INJ 500 MCG/2 ML AMP ONE (23:39)
[2017-02-19] MEDS: GABAPENTIN 300 MG CAP PO PRN ×2 (00:57→22:42)
[2017-02-19 03:16] VITALS: BP 108/69; PULSE 85; TEMP 36.9; O2SAT 94
[2017-02-19] MEDS: HYDROmorphone INJ 2 MG/ML SYR/VIAL IV PRN ×2 (03:44→20:49)
[2017-02-19] MEDS: HYDROCODONE/ACETAMOPHEN 5/325MG TAB PO PRN ×2 (03:44→20:48)
[2017-02-19 06:58] LABS: INR 1.2 (0.9-1.1); PARTIAL THROMBOPLASTIN RATIO 2.8; PROTHROMBIN TIME (PATIENT) 13.4 SECONDS (9.0-12.0)
[2017-02-19 07:12] LABS: BUN/CREATININE RATIO 14.9 (10-20); CALCIUM 8.6 mg/dl (8.5-10.1); CREATININE 0.86 mg/dl (0.60-1.40); MAGNESIUM 2.2 mg/dl (1.8-2.4); POTASSIUM 4.2 mmol/L (3.5-5.1)
[2017-02-19 08:39] VITALS: BP 108/64; PULSE 59; TEMP 36.7; O2SAT 96
[2017-02-19] MEDS: METOPROLOL TARTRATE 25 MG TAB PO SCH ×2 (08:45→20:23)
[2017-02-19] MEDS: DOCUSATE SODIUM 100 MG CAP PO SCH ×2 (08:45→20:22)
[2017-02-19] MEDS: CHOLECALCIFEROL 1000 INTER.UNIT TAB PO SCH (08:46)
[2017-02-19] MEDS: MAGNESIUM OXIDE 400 MG TAB PO SCH (08:46)
[2017-02-19] MEDS: ASPIRIN 81 MG ECTAB PO SCH (08:46)
[2017-02-19] MEDS: VITAMIN B COMPLEX TAB PO SCH (08:46)
[2017-02-19 11:33] VITALS: BP 96/60; PULSE 62; TEMP 36.8; O2SAT 96
--- NOTE | 2017-02-19 15:20 | Progress Note ---
Internal Med Progress Note Date of Service: Feb 19, 2017. Provider Documentation: SUBJECTIVE: The patient was seen and examined Admitted with Bilateral leg pain and swelling Noted to have bilateral legs DVT and PE H/O PE The pain is reasonably controlled OOB in a chair OBJECTIVE: Vital Signs-as noted below Exam: General-No distress at rest Eyes-normal ENT-normal Neck-supple Lungs-Clear to auscultate bilaterally Heart-Regular Abdomen-Benign,no masses,bowel sound present Extremities-1+ edema bilaterally Neuro-AAOx3 Lab data as noted below. ASSESSMENT & PLAN: BILATERAL LOWER EXT DVT WITH PULMONARY EMBOLISM -had recent lumber spinal decompression surgery done approx 3 weeks back ( on done by Dr Blake at [facility] ) -no post op complication , was discharged home -was discharged on Aspirin 81 mg daily and has been reasonably active following discharge -2-3 days back pt had blood work done at [facility] ,was concerned regarding his blood being " too thick " -he started to take 2 Baby Aspirin ( 81 mg ) in morning and 1 aspirin at night -was seen in the Clinic for swelling of legs -out pt Lower ext Doppler ordered , shows bilateral occlusive lower ext DVT extending popliteal veins CTA of chest shows numerous small PE bilaterally R> L -Started empirically with IV heparin wt based protocol ECHO in Am to assess evidence of rt heart strain ::::The study was technically difficult. * A contrast injection of Definity was performed to improve assessment of LV function. * The left ventricle is normal in size. * There is borderline concentric left ventricular hypertrophy. * The left ventricular wall motion is normal. * Ejection Fraction = 55-60%. * Grade I diastolic dysfunction, (abnormal relaxation pattern). * Borderline aortic root dilatation. * Significant tricuspid regurgitation is absent. * Doppler findings do not suggest pulmonary hypertension. * The right ventricle is normal in size and function. * The left atrial size is normal. * Normal inferior vena cava diameter and respiratory variation suggests normal central venous pressure. Coumadin 7.5 mg PO daily ordered No new respiratory symptoms Continue current management PRIOR HX OF PE : -In 2013 , was on Coumadin for 6 months -hypercoagulable work up ( Factor 5 Leiden , antithrombin 3 , ) ordered - reference lab -given repeated hx of Thromboembolic event and bilateral PE /DVT will recommend shelter anticoagulation -may need long therapy if hypercoagulable work up is positive -recommend Heme oncology follow as out patient as well for further recommendation /guideline for anticoagulation status -results of Hypercoagulable w/u is not back yet RECENT SPINAL DECOMPRESSION STATUS : -symptoms of back pain improved post op -but recurrence with worse pain few days back associated with rt sided radiculopathy -spinal orthopedics Dr Blake consulted -ordered for PT/OT Has had More pain this morning Dilaudid 1mg q4h as needed Ordered Appreciate Ortho input and recommendation FULL CODE DVT PROPHYLAXIS : IV HEPARIN /COUMADIN DISPOSITION ; PT/OT eval prior to discharged Medicine follow up with Dr Ivonne Ruiz Vital Signs: Date Time Temp Pulse Resp B/P (MAP) Pulse Ox O2 Delivery O2 Flow Rate FiO2 02/19/17 12:00 Room Air 02/19/17 11:33 36.8 62 19 96/60 (72) 96 Room Air 02/19/17 08:39 36.7 59 19 108/64 (79) 96 Room Air 02/19/17 08:00 Room Air 02/19/17 04:00 Room Air 02/19/17 03:16 36.9 85 18 108/69 (82) 94 02/19/17 00:01 Room Air 02/18/17 23:43 110 18 106/73 (84) 96 Room Air 02/18/17 23:43 110 02/18/17 23:15 36.5 107 16 106/74 (85) 95 Room Air 02/18/17 22:39 111 116/77 (90) 95 Room Air 02/18/17 22:39 108 16 122/82 (95) 96 Room Air 02/18/17 22:35 111 122/82 02/18/17 22:23 111 18 122/82 (95) 96 Room Air 02/18/17 20:00 Room Air 02/18/17 19:49 100 02/18/17 19:39 36.8 58 18 113/69 (84) 96 Room Air 02/18/17 16:00 Room Air 02/18/17 15:52 36.6 52 22 108/68 (81) 97 Room Air Lab Results: Results Past 24 Hours Test 02/19/17 06:17 Range/Units Prothrombin Time 13.4 9.0-12.0 SECONDS Prothromb Time International Ratio 1.2 0.9-1.1 Activated Partial Thromboplast Time 71.7 21.0-31.0 SECONDS Partial Thromboplastin Ratio 2.8 Sodium Level 139 136-145 mmol/L Potassium Level 4.2 3.5-5.1 mmol/L Chloride Level 102 98-107 mmol/L Carbon Dioxide Level 33 21-32 mmol/L Anion Gap 4.0 3-11 mmol/L Blood Urea Nitrogen 13 7-18 mg/dl Creatinine 0.86 0.60-1.40 mg/dl Est Creatinine Clear Calc Drug Dose 80.2 ml/min Estimated GFR () 97.6 Estimated GFR (Non- 84.2 BUN/Creatinine Ratio 14.9 10-20 Random Glucose 87 70-99 mg/dl Calcium Level 8.6 8.5-10.1 mg/dl Magnesium Level 2.2 1.8-2.4 mg/dl
[2017-02-19 15:36] VITALS: BP 106/66; PULSE 66; TEMP 36.9; O2SAT 97
[2017-02-19] MEDS: WARFARIN SOD 7.5 MG TAB PO SCH (16:59)
[2017-02-19 18:17] LABS: PARTIAL THROMBOPLASTIN RATIO 2.3
[2017-02-19 19:54] VITALS: BP 120/74; PULSE 79; TEMP 36.6; O2SAT 95
[2017-02-19] MEDS: TAMSULOSIN HCL 0.4 MG CAP PO SCH (20:23)
[2017-02-19] MEDS: ROSUVASTATIN CALCIUM 10 MG TAB PO SCH (20:23)
[2017-02-19] MEDS: DIGOXIN 0.125 MG TAB PO SCH (20:23)
[2017-02-20] VITALS (11 sets, daily range): BP systolic 95–152; BP diastolic 60–77; PULSE 65–88; TEMP 36.4–37; O2SAT 93–99
[2017-02-20] MEDS: HEPARIN 25,000 UNIT/500ML D5W 500 ML IV PRN ×3 (04:00→23:32)
[2017-02-20 06:56] LABS: PARTIAL THROMBOPLASTIN RATIO 2.7
[2017-02-20 07:12] LABS: BUN/CREATININE RATIO 14.3 (10-20); CALCIUM 8.3 mg/dl (8.5-10.1); CREATININE 0.91 mg/dl (0.60-1.40); MAGNESIUM 2.1 mg/dl (1.8-2.4)
[2017-02-20] MEDS: VITAMIN B COMPLEX TAB PO SCH (07:46)
[2017-02-20] MEDS: METOPROLOL TARTRATE 25 MG TAB PO SCH ×2 (07:47→20:11)
[2017-02-20] MEDS: DOCUSATE SODIUM 100 MG CAP PO SCH ×2 (07:47→20:11)
[2017-02-20] MEDS: CHOLECALCIFEROL 1000 INTER.UNIT TAB PO SCH (07:47)
[2017-02-20] MEDS: ASPIRIN 81 MG ECTAB PO SCH (07:48)
[2017-02-20] MEDS: MAGNESIUM OXIDE 400 MG TAB PO SCH (07:48)
[2017-02-20] MEDS: HYDROCODONE/ACETAMOPHEN 5/325MG TAB PO PRN ×2 (07:51→21:47)
[2017-02-20 09:18] LABS: INR 1.6 (0.9-1.1)
[2017-02-20 15:06] LABS: PARTIAL THROMBOPLASTIN RATIO 2.4
--- NOTE | 2017-02-20 16:52 | Progress Note ---
Internal Med Progress Note Date of Service: Feb 20, 2017. Provider Documentation: SUBJECTIVE: The patient was seen and examined Admitted with Bilateral leg pain and swelling Noted to have bilateral legs DVT and PE H/O PE Much better today Denies any symptoms Back pain is better OBJECTIVE: Vital Signs-as noted below Exam: General-No distress at rest Eyes-normal ENT-normal Neck-supple Lungs-Clear to auscultate bilaterally Heart-Regular Abdomen-Benign,no masses,bowel sound present Extremities-1+ edema bilaterally Neuro-AAOx3 Lab data as noted below. ASSESSMENT & PLAN: BILATERAL LOWER EXT DVT WITH PULMONARY EMBOLISM -had recent lumber spinal decompression surgery done approx 3 weeks back ( on done by Dr Blake at [facility] ) -no post op complication , was discharged home -was discharged on Aspirin 81 mg daily and has been reasonably active following discharge -2-3 days back pt had blood work done at [facility] ,was concerned regarding his blood being " too thick " -he started to take 2 Baby Aspirin ( 81 mg ) in morning and 1 aspirin at night -was seen in the Clinic for swelling of legs -out pt Lower ext Doppler ordered , shows bilateral occlusive lower ext DVT extending popliteal veins CTA of chest shows numerous small PE bilaterally R> L -Started empirically with IV heparin wt based protocol ECHO in Am to assess evidence of rt heart strain ::::The study was technically difficult. * A contrast injection of Definity was performed to improve assessment of LV function. * The left ventricle is normal in size. * There is borderline concentric left ventricular hypertrophy. * The left ventricular wall motion is normal. * Ejection Fraction = 55-60%. * Grade I diastolic dysfunction, (abnormal relaxation pattern). * Borderline aortic root dilatation. * Significant tricuspid regurgitation is absent. * Doppler findings do not suggest pulmonary hypertension. * The right ventricle is normal in size and function. * The left atrial size is normal. * Normal inferior vena cava diameter and respiratory variation suggests normal central venous pressure. Coumadin 7.5 mg PO daily ordered No new respiratory symptoms Continue current management INR 1.6 today Will need 2 days overlap of therapy when INR >2.0 PRIOR HX OF PE : -In 2013 , was on Coumadin for 6 months -hypercoagulable work up ( Factor 5 Leiden , antithrombin 3 , ) ordered - reference lab -given repeated hx of Thromboembolic event and bilateral PE /DVT will recommend intermission coordinator anticoagulation -may need long therapy if hypercoagulable work up is positive -recommend Heme oncology follow as out patient as well for further recommendation /guideline for anticoagulation status -results of Hypercoagulable w/u is not back yet RECENT SPINAL DECOMPRESSION STATUS : -symptoms of back pain improved post op -but recurrence with worse pain few days back associated with rt sided radiculopathy -spinal orthopedics Dr Blake consulted -ordered for PT/OT Has had More pain this morning Dilaudid 1mg q4h as needed Ordered Appreciate Ortho input and recommendation Continue Physical therapy-Keep OP appointment with Ortho FULL CODE DVT PROPHYLAXIS : IV HEPARIN /COUMADIN DISPOSITION ; PT/OT eval prior to discharged Medicine follow up with Dr Ivonne Ruiz Vital Signs: Date Time Temp Pulse Resp B/P (MAP) Pulse Ox O2 Delivery O2 Flow Rate FiO2 02/20/17 16:00 95 Room Air 02/20/17 12:27 36.8 65 19 95/60 (72) 96 Room Air 02/20/17 12:00 96 Room Air 02/20/17 08:00 95 Room Air 02/20/17 07:50 36.8 72 19 138/72 (94) 96 Room Air 02/20/17 04:16 36.4 70 16 130/72 (91) 98 Room Air 02/20/17 04:00 Room Air 02/20/17 00:16 36.9 88 16 152/77 (102) 97 Room Air 02/20/17 00:01 Room Air 02/19/17 20:23 79 02/19/17 20:00 Room Air 02/19/17 19:54 36.6 79 18 120/74 (89) 95 Room Air Lab Results: Results Past 24 Hours Test 02/19/17 17:22 02/20/17 06:28 02/20/17 14:22 Range/Units Activated Partial Thromboplast Time 59.9 70.3 62.9 21.0-31.0 SECONDS Partial Thromboplastin Ratio 2.3 2.7 2.4 Prothrombin Time 18.0 9.0-12.0 SECONDS Prothromb Time International Ratio 1.6 0.9-1.1 Sodium Level 142 136-145 mmol/L Potassium Level 4.0 3.5-5.1 mmol/L Chloride Level 106 98-107 mmol/L Carbon Dioxide Level 31 21-32 mmol/L Anion Gap 5.0 3-11 mmol/L Blood Urea Nitrogen 13 7-18 mg/dl Creatinine 0.91 0.60-1.40 mg/dl Est Creatinine Clear Calc Drug Dose 75.8 ml/min Estimated GFR () 94.5 Estimated GFR (Non- 81.6 BUN/Creatinine Ratio 14.3 10-20 Random Glucose 82 70-99 mg/dl Calcium Level 8.3 8.5-10.1 mg/dl Magnesium Level 2.1 1.8-2.4 mg/dl
--- NOTE | 2017-02-20 16:52 | PROGRESS NOTE ---
DATE: 02/20/2017 CHIEF COMPLAINT: Lower extremity difficulty. Working diagnosis of nerve root, pain, musculoskeletal back and hip pain or primary hip discomfort. HISTORY OF PRESENT ILLNESS: Raghavendra is a delightful patient. I have known him well now for at least 4-5 weeks, possibly a bit longer. He had elective spine surgery that I performed about 3-1/2 weeks ago. He had a nice recovery from that and improvement in his pain. He is now readmitted to the hospital with some medical problems including mild though pulmonary emboli with lower extremity difficulty. OBJECTIVE: MUSCULOSKELETAL: On rounds this afternoon approximately 3:30 p.m., he really was not in much pain, sitting or even standing, it seemed to come from the buttock and lower extremity region. It is a little bit odd, but we see a lot of unusual difficult pain syndromes. NEUROLOGIC: Intact, 5/5 strength, good sensation, motor ability, no deficits, slight kyphosis. ASSESSMENT: Nerve root irritation of the spine, hip pathology, musculoskeletal issues. DISPOSITION: At this point in time, from our standpoint, which is ____ orthopedist were back away from any type of procedure since he is comfortable, try to get his anticoagulants under control, get that monitored and will follow him closely. I will see him daily. We are not planning any emergent surgical procedures in that regard.
[2017-02-20] MEDS: WARFARIN SOD 7.5 MG TAB PO SCH (17:01)
[2017-02-20] MEDS: ROSUVASTATIN CALCIUM 10 MG TAB PO SCH (20:11)
[2017-02-20] MEDS: DIGOXIN 0.125 MG TAB PO SCH (20:12)
[2017-02-20] MEDS: TAMSULOSIN HCL 0.4 MG CAP PO SCH (20:13)
[2017-02-20] MEDS: HYDROmorphone INJ 2 MG/ML SYR/VIAL IV PRN (22:40)
[2017-02-21] VITALS (7 sets, daily range): BP systolic 103–145; BP diastolic 63–83; PULSE 68–83; TEMP 36.4–37; O2SAT 96–98
[2017-02-21 07:41] LABS: PARTIAL THROMBOPLASTIN RATIO 2.6; PROTHROMBIN TIME (PATIENT) 22.1 SECONDS (9.0-12.0)
[2017-02-21] MEDS: METOPROLOL TARTRATE 25 MG TAB PO SCH ×2 (08:15→19:28)
[2017-02-21] MEDS: ASPIRIN 81 MG ECTAB PO SCH (08:15)
[2017-02-21] MEDS: CHOLECALCIFEROL 1000 INTER.UNIT TAB PO SCH (08:15)
[2017-02-21] MEDS: DOCUSATE SODIUM 100 MG CAP PO SCH ×2 (08:15→19:28)
[2017-02-21] MEDS: VITAMIN B COMPLEX TAB PO SCH (08:15)
[2017-02-21] MEDS: MAGNESIUM OXIDE 400 MG TAB PO SCH (08:15)
[2017-02-21] MEDS: HYDROmorphone INJ 2 MG/ML SYR/VIAL IV PRN (16:02)
[2017-02-21] MEDS: WARFARIN SOD 7.5 MG TAB PO SCH (16:02)
[2017-02-21] MEDS: HYDROCODONE/ACETAMOPHEN 5/325MG TAB PO PRN (18:27)
[2017-02-21] MEDS: DIGOXIN 0.125 MG TAB PO SCH (19:28)
[2017-02-21] MEDS: ROSUVASTATIN CALCIUM 10 MG TAB PO SCH (19:29)
[2017-02-21] MEDS: TAMSULOSIN HCL 0.4 MG CAP PO SCH (19:29)
--- NOTE | 2017-02-21 20:08 | Progress Note ---
Medicine Progress Note Date & Time of Visit: Feb 21, 2017 at 19:45. Subjective Pt was seen and examined Sitting in chair comfortable with family member Pt said that he feels fine denies any chest pain, palpitation, dizziness and SOB Objective Last 8 Hrs Date Time Temp Pulse Resp B/P (MAP) Pulse Ox O2 Delivery O2 Flow Rate FiO2 02/21/17 19:28 76 02/21/17 16:00 Room Air 02/21/17 15:48 36.4 72 20 135/75 (95) 96 Room Air 02/21/17 15:30 96 Room Air 02/21/17 15:23 36.4 83 18 128/73 (91) 96 Room Air 02/21/17 12:00 Room Air Physical Exam: General- very pleasant, No acute distress Head- atraumatic Eyes- PERRL, EOMI ENT- oropharynx clear Neck- supple, no JVD Lungs- clear to auscultation and percussion Heart- regular rhythm Abdomen- normal bowel sounds, soft, nontender Extremities- + edema, no calf tenderness Neuro- alert, oriented x 3; PERRL, EOMI; no facial palsy Skin- warm & dry Laboratory Results: Last 24 Hours Test 02/21/17 06:31 Prothrombin Time 22.1 SECONDS Prothromb Time International Ratio 2.0 Activated Partial Thromboplast Time 68.8 SECONDS Partial Thromboplastin Ratio 2.6 Assessment & Plan BILATERAL LOWER EXT DVT WITH PULMONARY EMBOLISM -S/P lumber spinal decompression surgery done approx 3 weeks ago ( on 01/26/[address] Blake at [facility] ) -no post surgical complication -was discharged on Aspirin 81 mg daily and has been reasonably active following discharge -he started to take 2 baby Aspirin ( 81 mg ) in morning and 1 aspirin at night about 3 days ago after his blood seems too thick when he had blood work done at [facility]. -Started to have LE extremities swelling -out pt Lower ext Doppler ordered , shows bilateral occlusive lower ext DVT extending popliteal veins - CTA of chest shows numerous small PE bilaterally R> L - On IV heparin wt based protocol with Coumadin - INR 2 today - Will d/c heparin drip tomorrow if INR above 2 - Coumadin 7.5 mg PO daily ordered - Will need 2 days overlap of therapy when INR >2.0 ECHO in Am to assess evidence of rt heart strain ::::The study was technically difficult. * A contrast injection of Definity was performed to improve assessment of LV function. * The left ventricle is normal in size. * There is borderline concentric left ventricular hypertrophy. * The left ventricular wall motion is normal. * Ejection Fraction = 55-60%. * Grade I diastolic dysfunction, (abnormal relaxation pattern). * Borderline aortic root dilatation. * Significant tricuspid regurgitation is absent. * Doppler findings do not suggest pulmonary hypertension. * The right ventricle is normal in size and function. * The left atrial size is normal. * Normal inferior vena cava diameter and respiratory variation suggests normal central venous pressure. 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 will recommend snf anticoagulation for at least 1 year or longer -may need long therapy if hypercoagulable work up is positive -recommend Heme oncology follow as out patient as well for further recommendation /guideline for anticoagulation status RECENT SPINAL DECOMPRESSION STATUS : -spinal orthopedics Dr Blake consulted No surgical intervention as per ortho Continue PT/OT Stable CODE STATUS FULL CODE DVT PROPHYLAXIS IV HEPARIN /COUMADIN INR 2 DISPOSITION ; Continue PT/OT Will discharge home tomorrow Medicine follow up with Dr Ivonne Ruiz Consultants: Ortho Current Inpatient Medications: Current Inpatient Medications Medications (Trade) Dose Ordered Sig/Cathy Route Start Time Stop Time Status Last Admin Dose Admin Acetaminophen (Tylenol Tab) 650 mg Q4H PRN PO 02/16/17 23:00 03/18/17 22:59 02/17/17 07:08 650 MG Al Hydrox/Mg Hydrox/Simethicone (Maalox Max Susp) 15 ml Q4H PRN PO 02/16/17 23:00 03/18/17 22:59 02/19/17 00:56 15 ML Magnesium Hydroxide (Milk Of Magnesia Susp) 30 ml Q12H PRN PO 02/16/17 23:00 03/18/17 22:59 Zolpidem Tartrate (Ambien Tab) 5 mg HSZ PRN PO 02/16/17 23:00 03/18/17 22:59 Ondansetron HCl (Zofran Inj) 4 mg Q6H PRN IV 02/16/17 23:00 03/18/17 22:59 Nitroglycerin (Nitrostat Tab) 0.4 mg UD PRN SL 02/16/17 23:00 03/18/17 22:59 Aspirin (Ecotrin Tab) 81 mg QAM PO 02/17/17 09:00 03/19/17 08:59 02/21/17 08:15 81 MG Polyethylene (Miralax Powder Packet) 17 gm DAILY PRN PO 02/16/17 23:00 03/18/17 22:59 Warfarin Sodium (Coumadin Tab) 7.5 mg DAILY@16 PO 02/17/17 16:00 03/19/17 15:59 02/21/17 16:02 7.5 MG Heparin Sodium/ Dextrose 500 ml @ 24 mls/hr [id number] PRN IV 02/16/17 23:30 03/18/17 23:29 02/20/17 23:32 24 MLS/HR Diclofenac Sodium (Voltaren 1% Top Gel) 1 appln BID PRN EXT 02/17/17 01:30 03/19/17 01:29 Digoxin (Lanoxin Tab) 0.125 mg HS PO 02/17/17 21:00 03/19/17 20:59 02/21/17 19:28 0.125 MG Fluticasone Propionate (Flonase Nasal [place]) 2 sprays DAILY PRN REILYL 02/17/17 01:30 03/19/17 01:29 Gabapentin (Neurontin Cap) 300 mg BID PRN PO 02/17/17 01:30 03/19/17 01:29 02/19/17 22:42 300 MG Acetaminophen/ Hydrocodone Bitart ([place] 5/325 Tab) 1 tab Q4 PRN PO 02/17/17 01:30 03/03/17 01:29 02/21/17 18:27 1 TAB Metoprolol Tartrate (Lopressor Tab) 25 mg BID PO 02/17/17 09:00 03/19/17 08:59 02/21/17 19:28 25 MG Quinine Sulfate (QUINine SULFATE CAP) 324 mg HS PRN PO 02/17/17 01:30 03/19/17 01:29 Rosuvastatin Calcium (Crestor Tab) 5 mg QPM PO 02/17/17 21:00 03/19/17 20:59 02/21/17 19:29 5 MG Tamsulosin HCl (Flomax Cap) 0.4 mg QPM PO 02/17/17 21:00 03/19/17 20:59 02/21/17 19:29 0.4 MG Miscellaneous Information (Order Awaiting Action) 1 ea QS N/A 02/17/17 08:00 03/19/17 07:59 Vitamin B Complex (Vitamin B Complex) 1 tab QAM PO 02/17/17 09:00 03/19/17 08:59 02/21/17 08:15 1 TAB Cholecalciferol (Vitamin D Tab) 5,000 inter.unit QAM PO 02/17/17 09:00 03/19/17 08:59 02/21/17 08:15 5,000 INTER.UNIT Magnesium Oxide (Mag-Ox Tab) 400 mg QAM PO 02/17/17 09:00 03/19/17 08:59 02/21/17 08:15 400 MG Docusate Sodium (coLACE CAP) 100 mg BID PO 02/17/17 09:00 03/19/17 08:59 02/21/17 19:28 100 MG Hydromorphone HCl (Dilaudid Inj) 1 mg Q4H PRN IV 02/18/17 09:45 03/04/17 09:44 02/21/17 16:02 1 MG Metoprolol Tartrate (Lopressor Iv) 5 mg Q6 PRN IV 02/18/17 22:30 03/20/17 22:29 02/18/17 22:35 5 MG
[2017-02-21] MEDS: HEPARIN 25,000 UNIT/500ML D5W 500 ML IV PRN (20:17)
[2017-02-22 00:09] VITALS: BP 124/70; PULSE 61; TEMP 37; O2SAT 96
[2017-02-22 04:35] VITALS: BP 136/80; PULSE 77; TEMP 36.6; O2SAT 98
[2017-02-22 05:20] LABS: HEMATOCRIT 34.5 % (42-52); MEAN CELL VOLUME 91.8 fL (80-100); MEAN CORPUSCULAR HEMOGLOBIN 31.1 pg (25-34); MEAN CORPUSCULAR HGB CONC 33.9 g/dl (32-36); MEAN PLATELET VOLUME 8.6 fL (7.4-10.4); PLATELET COUNT 186 K/uL (130-400); RED BLOOD COUNT 3.76 M/uL (4.7-6.1); WHITE BLOOD COUNT 3.76 K/uL (4.8-10.8)
[2017-02-22 05:37] LABS: INR 2.3 (0.9-1.1); PARTIAL THROMBOPLASTIN RATIO 2.8; PROTHROMBIN TIME (PATIENT) 25.7 SECONDS (9.0-12.0)
[2017-02-22] MEDS: HEPARIN 25,000 UNIT/500ML D5W 500 ML IV PRN (06:23)
[2017-02-22 07:17] VITALS: BP 143/79; PULSE 81; TEMP 37; O2SAT 96
[2017-02-22] MEDS: ASPIRIN 81 MG ECTAB PO SCH (08:27)
[2017-02-22] MEDS: VITAMIN B COMPLEX TAB PO SCH (08:27)
[2017-02-22] MEDS: DOCUSATE SODIUM 100 MG CAP PO SCH (08:27)
[2017-02-22] MEDS: CHOLECALCIFEROL 1000 INTER.UNIT TAB PO SCH (08:27)
[2017-02-22] MEDS: METOPROLOL TARTRATE 25 MG TAB PO SCH (08:28)
[2017-02-22] MEDS: MAGNESIUM OXIDE 400 MG TAB PO SCH (08:28)
[2017-02-22 10:58] VITALS: BP 109/73; PULSE 64; TEMP 36.7; O2SAT 96
--- NOTE | 2017-02-22 11:06 | Progress Note ---
Medicine Progress Note Date & Time of Visit: Feb 22, 2017 at 11:01. 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 present Pt said that he feels fine Denies any chest pain, palpitation, dizziness and SOB Objective Last 8 Hrs Date Time Temp Pulse Resp B/P (MAP) Pulse Ox O2 Delivery O2 Flow Rate FiO2 02/22/17 08:00 Room Air 02/22/17 07:17 37.0 81 20 143/79 (100) 96 Room Air 02/22/17 04:35 36.6 77 16 136/80 (98) 98 Room Air 02/22/17 04:00 Room Air Physical Exam: General- very pleasant, No acute distress Head- atraumatic Eyes- PERRL, EOMI ENT- oropharynx clear Neck- supple, no JVD Lungs- clear to auscultation and percussion Heart- regular rhythm Abdomen- normal bowel sounds, soft, nontender Extremities- + edema, no calf tenderness Neuro- alert, oriented x 3; PERRL, EOMI; no facial palsy Skin- warm & dry Laboratory Results: Last 24 Hours Test 02/22/17 04:57 White Blood Count 3.76 K/uL Red Blood Count 3.76 M/uL Hemoglobin 11.7 g/dL Hematocrit 34.5 % Mean Corpuscular Volume 91.8 fL Mean Corpuscular Hemoglobin 31.1 pg Mean Corpuscular Hemoglobin Concent 33.9 g/dl RDW Standard Deviation 49.1 fL RDW Coefficient of Variation 14.7 % Platelet Count 186 K/uL Mean Platelet Volume 8.6 fL Prothrombin Time 25.7 SECONDS Prothromb Time International Ratio 2.3 Activated Partial Thromboplast Time 73.5 SECONDS Partial Thromboplastin Ratio 2.8 Assessment & Plan BILATERAL LOWER EXT DVT WITH PULMONARY EMBOLISM -S/P lumber spinal decompression surgery done approx 3 weeks ago ( on 01/26/[address] Blake at [facility] ) -no post surgical complication -was discharged on Aspirin 81 mg daily and has been reasonably active following discharge -he started to take 2 baby Aspirin ( 81 mg ) in morning and 1 aspirin at night about 3 days ago after his blood seems too thick when he had blood work done at [facility]. -Started to have LE extremities swelling -out pt Lower ext Doppler ordered , shows bilateral occlusive lower ext DVT extending popliteal veins - CTA of chest shows numerous small PE bilaterally R> L - On IV heparin wt based protocol with Coumadin - INR 2.3 today - Will d/c heparin drip tomorrow if INR above 2 - will discharge on Coumadin 5 mg PO daily - [place] up [place] [facility] - Check INR on Monday ECHO in Am to assess evidence of rt heart strain ::::The study was technically difficult. * A contrast injection of Definity was performed to improve assessment of LV function. * The left ventricle is normal in size. * There is borderline concentric left ventricular hypertrophy. * The left ventricular wall motion is normal. * Ejection Fraction = 55-60%. * Grade I diastolic dysfunction, (abnormal relaxation pattern). * Borderline aortic root dilatation. * Significant tricuspid regurgitation is absent. * Doppler findings do not suggest pulmonary hypertension. * The right ventricle is normal in size and function. * The left atrial size is normal. * Normal inferior vena cava diameter and respiratory variation suggests normal central venous pressure. 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 will recommend ferry terminal agent anticoagulation for at least 1 year or longer -may need long therapy if hypercoagulable work up is positive -recommend Heme oncology follow as out patient as well for further recommendation /guideline for anticoagulation status - will discharge on Coumadin 5 mg PO daily - Follow up with the [facility] [place] [facility] - Check INR on Monday RECENT SPINAL DECOMPRESSION STATUS : -spinal orthopedics Dr Blake consulted -No surgical intervention as per ortho -Continue PT/OT -Stable CODE STATUS FULL CODE DVT PROPHYLAXIS IV HEPARIN /COUMADIN INR 2 DISPOSITION ; Continue PT/OT Will discharge home today Medicine follow up with Dr Ivonne Ruiz Follow up with Ortho as an outpatient Consultants: Ortho Current Inpatient Medications: Current Inpatient Medications Medications (Trade) Dose Ordered Sig/Cathy Route Start Time Stop Time Status Last Admin Dose Admin Acetaminophen (Tylenol Tab) 650 mg Q4H PRN PO 02/16/17 23:00 03/18/17 22:59 02/17/17 07:08 650 MG Al Hydrox/Mg Hydrox/Simethicone (Maalox Max Susp) 15 ml Q4H PRN PO 02/16/17 23:00 03/18/17 22:59 02/19/17 00:56 15 ML Magnesium Hydroxide (Milk Of Magnesia Susp) 30 ml Q12H PRN PO 02/16/17 23:00 03/18/17 22:59 Zolpidem Tartrate (Ambien Tab) 5 mg HSZ PRN PO 02/16/17 23:00 03/18/17 22:59 Ondansetron HCl (Zofran Inj) 4 mg Q6H PRN IV 02/16/17 23:00 03/18/17 22:59 Nitroglycerin (Nitrostat Tab) 0.4 mg UD PRN SL 02/16/17 23:00 03/18/17 22:59 Aspirin (Ecotrin Tab) 81 mg QAM PO 02/17/17 09:00 03/19/17 08:59 02/22/17 08:27 81 MG Polyethylene (Miralax Powder Packet) 17 gm DAILY PRN PO 02/16/17 23:00 03/18/17 22:59 Warfarin Sodium (Coumadin Tab) 7.5 mg DAILY@16 PO 02/17/17 16:00 03/19/17 15:59 02/21/17 16:02 7.5 MG Diclofenac Sodium (Voltaren 1% Top Gel) 1 appln BID PRN EXT 02/17/17 01:30 03/19/17 01:29 Digoxin (Lanoxin Tab) 0.125 mg HS PO 02/17/17 21:00 03/19/17 20:59 02/21/17 19:28 0.125 MG Fluticasone Propionate (Flonase Nasal [place]) 2 sprays DAILY PRN REILLY 02/17/17 01:30 03/19/17 01:29 Gabapentin (Neurontin Cap) 300 mg BID PRN PO 02/17/17 01:30 03/19/17 01:29 02/19/17 22:42 300 MG Acetaminophen/ Hydrocodone Bitart ([place] 5/325 Tab) 1 tab Q4 PRN PO 02/17/17 01:30 03/03/17 01:29 02/21/17 18:27 1 TAB Metoprolol Tartrate (Lopressor Tab) 25 mg BID PO 02/17/17 09:00 03/19/17 08:59 02/22/17 08:28 25 MG Quinine Sulfate (QUINine SULFATE CAP) 324 mg HS PRN PO 02/17/17 01:30 03/19/17 01:29 Rosuvastatin Calcium (Crestor Tab) 5 mg QPM PO 02/17/17 21:00 03/19/17 20:59 02/21/17 19:29 5 MG Tamsulosin HCl (Flomax Cap) 0.4 mg QPM PO 02/17/17 21:00 03/19/17 20:59 02/21/17 19:29 0.4 MG Miscellaneous Information (Order Awaiting Action) 1 ea QS N/A 02/17/17 08:00 03/19/17 07:59 Vitamin B Complex (Vitamin B Complex) 1 tab QAM PO 02/17/17 09:00 03/19/17 08:59 02/22/17 08:27 1 TAB Cholecalciferol (Vitamin D Tab) 5,000 inter.unit QAM PO 02/17/17 09:00 03/19/17 08:59 02/22/17 08:27 5,000 INTER.UNIT Magnesium Oxide (Mag-Ox Tab) 400 mg QAM PO 02/17/17 09:00 03/19/17 08:59 02/22/17 08:28 400 MG Docusate Sodium (coLACE CAP) 100 mg BID PO 02/17/17 09:00 03/19/17 08:59 02/22/17 08:27 100 MG Hydromorphone HCl (Dilaudid Inj) 1 mg Q4H PRN IV 02/18/17 09:45 03/04/17 09:44 02/21/17 16:02 1 MG Metoprolol Tartrate (Lopressor Iv) 5 mg Q6 PRN IV 02/18/17 22:30 03/20/17 22:29 02/18/17 22:35 5 MG
[2017-02-22 12:50] LABS: PARTIAL THROMBOPLASTIN RATIO 2.2
[2017-02-22] MEDS ORDERED: HYDR-5688 PO (15:26)
[2017-02-22] MEDS ORDERED: CMD75 PO (15:26)
--- NOTE | 2017-02-22 15:36 | Discharge Instructions ---
Discharge Instructions Date of Service Feb 22, 2017. Admission Reason for Admission: Lower Leg Dvt, Acute, Pulmonary Embolism Discharge Discharge Diagnosis / Problem: (1) Pulmonary embolism (2) DVT, bilateral lower limbs VTE Date & Time Date of VTE Diagnosis: Feb 16, 2017 Time of VTE Diagnosis: 22:22 Discharge Goals Goal(s): Decrease discomfort, Improve function, Improve disease control Activity Recommendations Activity Limitations: resume your previous activity (as tolerared) . Instructions / Follow-Up Instructions / Follow-Up Follow up with your primary care provider Dr. Sanchez on Mar 02 @ 2:40 pm Follow up with the Coumadin clinic on MondayFeb 24 @ 9:30 am Follow up with orthopedic Continue physical therapy fall precaution Continue with Coumadin 5 mg daily. INR on discharge day 2.3 No NSAIDs such as Motrin, Aleve, naproxen, ibuprofen to avoid the risks of bleeding Medication Instructions: * Warfarin is a medicine prescribed to prevent blood clots * Warfarin will thin your blood and help prevent new clots * Take your medications exactly as directed * Never skip a dose. Never take a double dose. If you miss a dose, take it as soon as you remember * It is important for your doctor to monitor your prothrombin time (PT). This is a lab test * Keep your appointment for lab tests Risk of Adverse Drug Reactions and Interactions: * Warfarin increases your risk of bleeding * The food you eat and other medications you take can affect how Warfarin works in your body * Ask your doctor about daily aspirin therapy * It is very important to talk with your doctor about all of the other medicines , antibiotics, vitamins or herbal products that you are taking * All of your medication must be approved by your doctor, including new medicines, as well as medicines you have taken before you started taking Warfarin Diet: * In order for Warfarin to work properly, it is important to keep your intake of Vitamin K as consistent as possible * You should avoid any sudden change in Vitamin K intake * Report any significant changes in your diet or weight to your doctor Call your Primary Care doctor if you experience any of the following: * Swelling or Pain in your leg * Sudden, continuous pain deep in a muscle * Pain that worsens when you are active or when you stand still for a long time * Chest Pain * Sudden Shortness of Breath * Rapid or pounding heart beat * Fainting * Dizziness * Cough with blood or bloody sputum * Sweating more than normal * Bruises * Heavy or uncontrolled bleeding * Blood in your urine, stool or vomit * Black or tarry stools Caring for Your Self at Home: * Avoid sitting, standing or lying down for long periods without moving your legs and feet * When traveling by car, stop to get out and move around at least once every 3 hours * On long airplane, train or bus rides, get up and move around when possible * If you can't get up, wiggle your toes and tighten your calves to keep your blood moving Follow Up: It is important for you to keep your follow up appointments with your medical provider. Current Hospital Diet Patient's current hospital diet: AHA Diet (Heart Healthy) Discharge Diet Recommended Diet: AHA Diet (Heart Healthy) Pending Studies Studies pending at discharge: yes List of pending studies: Hypercoagulable work up Medical Emergencies . Who to Call and When: Medical Emergencies: If at any time you feel your situation is an emergency, please call 911 immediately. . Non-Emergent Contact Non-Emergency issues call your: Primary Care Provider Call Non-Emergent contact if: you have any medication questions . . "Provider Documentation" section prepared by Priti Dang. . VTE Core Measure Inpt VTE Proph given/why not?: Warfarin (Coumadin), Other Anticoagulation (IV HEPARIN) Reason no anticoag overlap I/P: Treatment provided - N/A Reason no anticoag overlap @DC: Treatment provided - N/A [place] Drug Monitoring Program Search Results: no issues identified
[2017-02-22] MEDS ORDERED: CMD5 PO (15:47)
[2017-02-22 15:51] VITALS: BP 109/73; PULSE 64; TEMP 36.7; O2SAT 96
[2017-02-22] MEDS ORDERED: WARFARIN SOD 5 MG TAB PO SCH (16:00)
--- NOTE | 2017-02-26 15:07 | Discharge Summary ---
Discharge Summary Date of Service Feb 26, 2017. Discharge Summary Admission Date: Feb 16, 2017 at 22:54 Discharge Date: Feb 22, 2017 Discharge Disposition: Home Principal Diagnosis: Acute B/L Lower Leg DVT / Pulmonary Embolism Secondary Diagnoses/Problems: PRIOR HX OF PE RECENT SPINAL DECOMPRESSION STATUS Procedures: (CHEST FOR PE) ANGIO WITH CLINICAL HISTORY: 76 years-old Male presenting with chest pain, shortness of breath, clinical concern for pulmonary embolus, history of pulmonary embolus. TECHNIQUE: Multidetector CT angiography of the chest was performed after administration of intravenous contrast. 3-D volumetric and maximum intensity projection (MIP) images were subsequently reconstructed for review. IV contrast: 104 mL of Optiray 320. A dose lowering technique was used consistent with the principles of ALARA (as low as reasonably achievable). COMPARISON: 05/23/2012. CT DOSE (mGy.cm): The estimated cumulative dose is 411.31 mGy.cm. FINDINGS: Make Up Worker topogram: Unremarkable. Pulmonary vasculature: The study is adequate for assessment of the pulmonary vascular tree. Filling defect consistent with acute pulmonary embolus in the right upper lobe segmental pulmonary arteries as well as in the right interlobar pulmonary artery extending into the segmental lower lobe arteries. Subsegmental pulmonary emboli also noted in the left lower lobe. Main pulmonary artery top normal in size. No flattening of the interventricular septum. No intracardiac filling defect. Remaining chest: On soft tissue windows, normal thyroid and thoracic inlet. Scattered subcentimeter mediastinal lymph nodes, likely reactive. Possible few small hilar lymph nodes. Atherosclerosis of the descending thoracic aorta. Normal heart size. Coronary artery calcification. No pericardial or pleural effusion. Cholecystectomy clips. On lung windows, dependent consolidation, right greater than left. Calcified pleural plaques most prominently at the apices. Airways patent. Bronchial wall thickening noted in the right lower lobe. On bone windows, degenerative changes of the spine. IMPRESSION: 1. Multiple bilateral acute pulmonary emboli. No radiographic evidence of heart strain. Pulmonary emboli burden greatest in the right lower lobe, where consolidative changes are also greatest. The distribution of consolidation is not convincing for pulmonary infarct at this time, although this cannot be excluded. Nonetheless, pulmonary emboli are considered the most likely cause of these opacities with infection or aspiration less likely. The report will be called/faxed according to standard departmental protocol. Electronically signed by: Luis Goldstein M.D. 02/16/2017 10:22 PM Dictated Date/Time: 02/16/2017 10:15 PM PELVIS/BILATERAL HIP 2 VIEWS CLINICAL HISTORY: 76 years-old Male presenting with R Hip/ leg pain. TECHNIQUE: Single frontal view of the pelvis and frontal and lateral views of the bilateral hips were obtained. COMPARISON: Plain radiographs of the right hip from 12/18/2016. FINDINGS: Posterior lumbar fusion hardware with bone graft material noted spanning from L4 to S1. Osteopenia suggested. No evidence of sacral fracture. Hip joints congruent, although significant degenerative changes evident bilaterally. Mild joint space loss, right greater than left. No acute fracture in the pelvis. No femoral neck fracture. IMPRESSION: No acute osseous injury of the pelvis or bilateral hips. Bilateral degenerative changes of the hips. Electronically signed by: Luis Goldstein M.D. 02/18/2017 7:24 PM Dictated Date/Time: 02/18/2017 7:21 PM 2DECHO Interpretation Summary * Name: IFEOMA PANCHAL Study Date: 02/18/2017 01:43 PM BP: 94/56 mmHg * Patient Location: [facility]\\\\[id number]\\[id number] HR: 59 * : 1940 (M/d/yyyy) Gender: Male Height: 72 in * Age: 76 yrs Ethnicity: ME Weight: 202 lb * Ordering Physician: Zamzam Bui * Referring Physician: Mitchel Sanchez D.O. * Performed By: Alisa Schmidt RDCS * * Reason For Study: PULMONARY HTN * BSA: 2.1 m2 * -- Conclusions -- * The study was technically difficult. * A contrast injection of Definity was performed to improve assessment of LV function. * The left ventricle is normal in size. * There is borderline concentric left ventricular hypertrophy. * The left ventricular wall motion is normal. * Ejection Fraction = 55-60%. * Grade I diastolic dysfunction, (abnormal relaxation pattern). * Borderline aortic root dilatation. * Significant tricuspid regurgitation is absent. * Doppler findings do not suggest pulmonary hypertension. * The right ventricle is normal in size and function. * The left atrial size is normal. * Normal inferior vena cava diameter and respiratory variation suggests normal central venous pressure. Procedure Details * A contrast injection of Definity was performed to improve assessment of LV function. * Contrast was injected into an intravenous site in the right arm. * One vial of Definity ultrasound contrast was diluted in normal saline to a total volume of 10 ml. A total of '2' ml of solution was administered during imaging. * Lot # [id number] of Definity utilized for procedure. * Expiration date 1 APR 12. * The attending nurse who injected the contrast agent was SUSAN MORA RN. * The study was technically difficult. Left Ventricle * The left ventricle is normal in size. * There is borderline concentric left ventricular hypertrophy. * Ejection Fraction = 55-60%. * The left ventricular wall motion is normal. Right Ventricle * The right ventricle is normal in size and function. Atria * The left atrial size is normal. * Right atrial size is normal. Mitral Valve * There is mild posterior mitral annular calcifcation * There is no mitral valve stenosis. * There is no mitral regurgitation noted. Tricuspid Valve * The tricuspid valve is not well visualized, but is grossly normal. * Significant tricuspid regurgitation is absent. * Doppler findings do not suggest pulmonary hypertension. Aortic Valve * The aortic valve is trileaflet. * The aortic valve opens well. * No hemodynamically significant valvular aortic stenosis. * There is no significant aortic regurgitation. Pulmonic Valve * The pulmonic valve is not well visualized. Great Vessels * Borderline aortic root dilatation. * Normal inferior vena cava diameter and respiratory variation suggests normal central venous pressure. Left Ventricular Diastolic Function * Grade I diastolic dysfunction, (abnormal relaxation pattern). Consultations: Ortho Medication Reconciliation New Medications: Warfarin Sod (Coumadin) 5 Mg Tab 1 TAB PO DAILY for 30 Days Changed Medications: Hydrocodone/Acetaminophen 5MG/325MG ([place] 5MG/325MG) Tab 1 TABLET PO Q8 PRN for Pain for 5 Days, #15 TAB (Changed from: Q4) PRN PAIN Continued Medications: Aspirin (Aspirin Chewable) 81 Mg Chew 81 MG PO QAM Azelastine Hcl (Astelin Nasal [place]) 200 Sprays/30 Ml [place] 1-2 SPRAYS NA BID PRN for CONGESTION, BTL B-Complex Vitamins (Vitamin B Complex) 1 Tab Tab 1 TAB PO QAM Cholecalciferol (Vitamin D) 5,000 Unit Tab 5000 UNITS PO QAM Digoxin (Digoxin) 0.125 Mg Tab 0.125 MG PO HS Fluticasone Propionate (Nasal) (Flonase Allergy Relief) 50 Mcg/Act Spr 1 SPRAY REILLY DAILY PRN for PRN Gabapentin (Neurontin) 300 Mg Cap 300 MG PO BID PRN for Pain, CAP Krill Oil (Krill Oil) 1 Cap Cap 1000 MG PO QAM Magnesium Oxide (Mg Supplement (Magnesium) 400 Mg Cap 400 MG PO QAM Metoprolol Tartrate (Lopressor) 25 Mg Tab 25 MG PO BID, TAB Quinine Sulfate (Quinine Sulfate) 324 Mg Cap 324 MG PO HS PRN for LEG CRAMPING, CAP Rosuvastatin Calcium (Crestor) 5 Mg Tab 5 MG PO QPM, TAB Tamsulosin Hcl (Flomax) 0.4 Mg Cap 0.4 MG PO QPM, CAP Discontinued Medications: Diclofenac Sodium (Topical) (Voltaren 1% Top Gel) 1 % Gel 1 DOSE EXT DIRECTED PRN for Pain Ibuprofen Tab (Advil) 200 Mg Tab 400 MG PO Q4 PRN for Pain, TAB Admission Information HPI (per Admitting provider): This is a 76 yo Male with hx of Prior PE ( in 2013 /was on Anticoagulation with Coumadin for 6 months ) , lumber spinal stenosis , underwent recent lumber spinal decompression surgery -Laminectomy L2-L4 with bilateral spinal decompression by Dr Blake on 01/26/17 pt had an uneventful post op recovery , was discharged home mentions his back pain and associated rt sided radiculopathy had improved markedly after surgery was discharged on Aspirin 81 mg daily ( pt was on it chronically ) has been active had sutures removed from surgical site on POD #9 few days back started to experience severe rt sided pelvic pain with radiation pain to right upper thigh , has been taking pain medications /giving ice packs with no improvement also last weekend noted significant swelling of both legs R> L pt contacted his family physician -was directed to [facility] for lower ext Doppler USG of lower ext shows bilateral occlusive DVT pt came to ED , CTA of chest shows multiple bilateral PE , R> L no evidence of cardiac strain noted on imaging pt denies of any SOB , GARCIA , palpitation , chest discomfort or dizzy spell no hypoxia noted no cough pt started on IV heparin wt based protocol , Coumadin ordered for full anticoagulation will be admitted to Telemetry unit Physical Exam (per Admitting): General Appearance: WD/WN Head: normocephalic, atraumatic Eyes: normal inspection, PERRL, EOMI, sclerae normal Neck: supple, thyroid normal, no JVD, no carotid bruits, trachea midline Respiratory/Chest: chest non-tender, lungs clear, normal breath sounds, no respiratory distress Cardiovascular: regular rate, rhythm, no edema, no gallop, no JVD, no murmur , normal peripheral pulses Abdomen/GI: normal bowel sounds, non tender, soft Extremities/Musculoskelatal: + calf tenderness, + pedal edema (+ 2 bilateral pedal edema ; ) Neurologic/Psych: no motor/sensory deficits, alert, oriented x 3 Hospital Course BILATERAL LOWER EXT DVT WITH PULMONARY EMBOLISM -S/P lumber spinal decompression surgery done approx 3 weeks ago ( on 01/26/[address] Blake at [facility] ) -no post surgical complication -was discharged on Aspirin 81 mg daily and has been reasonably active following discharge -he started to take 2 baby Aspirin ( 81 mg ) in morning and 1 aspirin at night about 3 days ago after his blood seems too thick when he had blood work done at [facility]. -Started to have LE extremities swelling -out pt Lower ext Doppler ordered , shows bilateral occlusive lower ext DVT extending popliteal veins - CTA of chest shows numerous small PE bilaterally R> L - On IV heparin wt based protocol with Coumadin - INR 2.3 today - Will d/c heparin drip tomorrow if INR above 2 - will discharge on Coumadin 5 mg PO daily - Follow up with the Coag clinic - Check INR on Monday ECHO in Am to assess evidence of rt heart strain ::::The study was technically difficult. * A contrast injection of Definity was performed to improve assessment of LV function. * The left ventricle is normal in size. * There is borderline concentric left ventricular hypertrophy. * The left ventricular wall motion is normal. * Ejection Fraction = 55-60%. * Grade I diastolic dysfunction, (abnormal relaxation pattern). * Borderline aortic root dilatation. * Significant tricuspid regurgitation is absent. * Doppler findings do not suggest pulmonary hypertension. * The right ventricle is normal in size and function. * The left atrial size is normal. * Normal inferior vena cava diameter and respiratory variation suggests normal central venous pressure. 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 will recommend jail anticoagulation for at least 1 year or longer -may need long therapy if hypercoagulable work up is positive -recommend Heme oncology follow as out patient as well for further recommendation /guideline for anticoagulation status - will discharge on Coumadin 5 mg PO daily - Follow up with the Coag clinic - Check INR on Monday RECENT SPINAL DECOMPRESSION STATUS : -spinal orthopedics Dr Blake consulted -No surgical intervention as per ortho -Continue PT/OT -Stable CODE STATUS FULL CODE DVT PROPHYLAXIS IV HEPARIN /COUMADIN INR 2 DISPOSITION ; Continue PT/OT Will discharge home today Medicine follow up with Dr Ivonne Ruiz Follow up with Ortho as an outpatient Total time spent on discharge = 35 minutes This includes examination of the patient, discharge planning, medication reconciliation, and communication with other providers. Discharge Instructions Discharge Instructions Date of Service Feb 22, 2017. Admission Reason for Admission: Lower Leg Dvt, Acute, Pulmonary Embolism Discharge Discharge Diagnosis / Problem: (1) Pulmonary embolism (2) DVT, bilateral lower limbs VTE Date & Time Date of VTE Diagnosis: Feb 16, 2017 Time of VTE Diagnosis: 22:22 Discharge Goals Goal(s): Decrease discomfort, Improve function, Improve disease control Activity Recommendations Activity Limitations: resume your previous activity (as tolerared) . Instructions / Follow-Up Instructions / Follow-Up Follow up with your primary care provider Dr. Sanchez on Mar 02 @ 2:40 pm Follow up with the Coumadin clinic on MondayFeb 24 @ 9:30 am Follow up with orthopedic Continue physical therapy fall precaution Continue with Coumadin 5 mg daily. INR on discharge day 2.3 No NSAIDs such as Motrin, Aleve, naproxen, ibuprofen to avoid the risks of bleeding Medication Instructions: * Warfarin is a medicine prescribed to prevent blood clots * Warfarin will thin your blood and help prevent new clots * Take your medications exactly as directed * Never skip a dose. Never take a double dose. If you miss a dose, take it as soon as you remember * It is important for your doctor to monitor your prothrombin time (PT). This is a lab test * Keep your appointment for lab tests Risk of Adverse Drug Reactions and Interactions: * Warfarin increases your risk of bleeding * The food you eat and other medications you take can affect how Warfarin works in your body * Ask your doctor about daily aspirin therapy * It is very important to talk with your doctor about all of the other medicines , antibiotics, vitamins or herbal products that you are taking * All of your medication must be approved by your doctor, including new medicines, as well as medicines you have taken before you started taking Warfarin Diet: * In order for Warfarin to work properly, it is important to keep your intake of Vitamin K as consistent as possible * You should avoid any sudden change in Vitamin K intake * Report any significant changes in your diet or weight to your doctor Call your Primary Care doctor if you experience any of the following: * Swelling or Pain in your leg * Sudden, continuous pain deep in a muscle * Pain that worsens when you are active or when you stand still for a long time * Chest Pain * Sudden Shortness of Breath * Rapid or pounding heart beat * Fainting * Dizziness * Cough with blood or bloody sputum * Sweating more than normal * Bruises * Heavy or uncontrolled bleeding * Blood in your urine, stool or vomit * Black or tarry stools Caring for Your Self at Home: * Avoid sitting, standing or lying down for long periods without moving your legs and feet * When traveling by car, stop to get out and move around at least once every 3 hours * On long airplane, train or bus rides, get up and move around when possible * If you can't get up, wiggle your toes and tighten your calves to keep your blood moving Follow Up: It is important for you to keep your follow up appointments with your medical provider. Current Hospital Diet Patient's current hospital diet: AHA Diet (Heart Healthy) Discharge Diet Recommended Diet: AHA Diet (Heart Healthy) Pending Studies Studies pending at discharge: yes List of pending studies: Hypercoagulable work up Medical Emergencies . Who to Call and When: Medical Emergencies: If at any time you feel your situation is an emergency, please call 911 immediately. . Non-Emergent Contact Non-Emergency issues call your: Primary Care Provider Call Non-Emergent contact if: you have any medication questions . . "Provider Documentation" section prepared by Priti Dang. . VTE Core Measure Inpt VTE Proph given/why not?: Warfarin (Coumadin), Other Anticoagulation (IV HEPARIN) [place] Drug Monitoring Program Search Results: no issues identified Additional Copies To Mitchel Sanchez D.O.
--- NOTE | 2017-03-20 14:48 | EDITING REQUIRED CODING QUERY ---
CODING QUERY Dear Dr. Dang, To promote full compliance with coding requirements relating to patient care, provider participation is requested in all cases of color receiver uncertainty. Please assist us with the question(s) below: Coding Question(s): Acute Bilateral Lower Leg DVT Was the DVT? ( ) Complication of prior spinal surgery ( ) Not a complication of prior spinal surgery ( ) Unable to determine ( ) Other: Please explain Physician's Response(s): Thank you for your time Jodee Campos [facility] Principal Diagnosis: "_that condition established after study, to be chiefly responsible for occasioning the admission of the patient to the hospital for care." Co-Existing Principal Diagnosis: "_when two or more diagnoses equally meet the criteria for principal diagnosis as determined by the circumstances of admission, diagnostic work up, and/or therapy provided, and the Alphabetic Index, Tabular List, or another coding guideline does not provide sequencing direction, any one of the diagnoses may be sequenced first." "When the physician has documented what appears to be a current diagnosis in the body of the record, but has not included the diagnosis in the final diagnostic statement, the physician should be asked whether the diagnosis should be added." (Source Coding Clinic 2 QTR90. p3-4)
== END 2017-02-22 16:25 | disposition home or self-care (01) | DRG 299 ==
LOC: C.EDB 18:46 → C.2T 22:54 → ENRESERV 23:13
PROVIDERS: ADMIT Hospitalist; ATTEND Internal Medicine
DX: I82.433 Acute embolism and thrombosis of popliteal vein, bilateral (principal); I26.99 Other pulmonary embolism without acute cor pulmonale; I47.1 Supraventricular tachycardia; Z98.1 Arthrodesis status; E78.5 Hyperlipidemia, unspecified; Z86.711 Personal history of pulmonary embolism; Z86.79 Personal history of other diseases of the circulatory system; Z86.73 Personal history of transient ischemic attack (TIA), and cerebral infarction without residual deficits; Z79.82 Long term (current) use of aspirin; Z79.1 Long term (current) use of non-steroidal anti-inflammatories (NSAID); Z79.899 Other long term (current) drug therapy

== ENCOUNTER → 2017-02-16 | Outpatient (CLI) | payer OTHER ==
[~2017-02-16] MED LIST changes: -CEFAZOLIN 2000 MG/60 ML D5W 60 ML IV SCH; +CMD5 PO; +CMD75 PO; -LACTATED RINGER'S 1000ML 1,000 ML IV SCH; -NSS 1000ML IV SCH
--- NOTE | 2017-02-16 17:59 | DIAGNOSTIC IMAGING REPORT ---
VENOUS DOPPLER LWR EXT BILA CLINICAL HISTORY: 76 years-old Male presenting with BILATERAL LEG EDEMA, R/O DVT,*CALL [phone] W/. TECHNIQUE: Real-time grayscale and color and spectral Doppler ultrasound imaging of the veins of the bilateral lower extremities was performed. Compression and augmentation were also utilized. COMPARISON: None. FINDINGS: Right: Common femoral vein: Patent. Femoral vein: Patent. Greater saphenous vein: Patent. Popliteal vein: Patent. Calf veins: Occlusive filling defect consistent with thrombus in the posterior tibial and peroneal veins. Left: Common femoral vein: Patent. Femoral vein: Patent. Greater saphenous vein: Patent. Popliteal vein: Occlusive filling consistent with thrombus. Calf veins: Occlusive filling defect consistent with thrombus in the posterior tibial and peroneal veins. Other: Suspected left popliteal cyst. IMPRESSION: Bilateral deep venous thrombosis in the calf veins. Acute thrombosis extends into the left popliteal vein but remains limited to the calf veins on the right. Electronically signed by: Luis Goldstein M.D. 02/16/2017 5:58 PM Dictated Date/Time: 02/16/2017 5:56 PM
== END | disposition home or self-care (01) ==
LOC: C.ULTR 17:13
PROVIDERS: ATTEND Internal Medicine
DX: R60.0 Localized edema (principal)

== ENCOUNTER → 2017-04-07 | Outpatient (CLI) | payer OTHER ==
[~2017-04-07] MED LIST changes: +CMD5 PO; -DICL1GEL12 EXT; -IBUP-103 PO
--- NOTE | 2017-04-07 13:58 | DIAGNOSTIC IMAGING REPORT ---
VENOUS DOPPLER LWR EXT BILA CLINICAL HISTORY: 76 years-old Male presenting with B/L LEG PAIN,R/O DVT. TECHNIQUE: Real-time grayscale and color and spectral Doppler ultrasound imaging of the veins of the bilateral lower extremities was performed. Compression and augmentation were also utilized. COMPARISON: None. FINDINGS: Right: Common femoral vein: Patent. Femoral vein: Patent. Greater saphenous vein: Patent. Popliteal vein: Patent. Calf veins: Occlusive filling defect consistent with thrombus in the duplicated right peroneal veins distally. Interrupted color Doppler flow in the proximal right posterior tibial vein consistent with thrombus. These are overall stable to slightly improved from prior. Left: Common femoral vein: Patent. Femoral vein: Patent. Greater saphenous vein: Patent. Popliteal vein: Previously noted thrombus is now nonocclusive extending along the proximal to distal length of the vein. Calf veins: Thrombus noted within the mid to distal left posterior tibial vein, which appears duplicated. Interrupted color Doppler flow within the left peroneal vein also suggest thrombus. These findings are stable to improved from prior exam. Other: Left popliteal cysts noted. IMPRESSION: Stable to slightly improved bilateral deep venous thrombosis in the calf veins and left popliteal vein. Electronically signed by: Luis Goldstein M.D. 04/07/2017 1:57 PM Dictated Date/Time: 04/07/2017 1:53 PM
== END | disposition home or self-care (01) ==
LOC: C.ULTR 12:37
PROVIDERS: ATTEND Physician Assistant
DX: I82.433 Acute embolism and thrombosis of popliteal vein, bilateral (principal)

== ENCOUNTER 2017-05-06 14:34 | Emergency (ER) | payer OTHER ==
[~2017-05-06] VITALS: Ht 185.4 cm; Wt 91.0 kg
[2017-05-06 14:40] VITALS: TEMP 36.4
[2017-05-06 15:13] VITALS: Ht 185.4 cm; Wt 91.0 kg
[2017-05-06 15:15] VITALS: O2SAT 95
[2017-05-06] MEDS ORDERED: WARF5TAB90 PO ×2 (15:33)
[2017-05-06] MEDS ORDERED: HYDR-5688 PO (15:34)
[2017-05-06 15:35] LABS: BASO % 0.2 %; BASO ABS # 0.01 K/uL (0-0.2); COMPLETE YES; EOS % 3.9 %; HEMATOCRIT 43.8 % (42-52); IG% 0.2 %; LYMPH % 13.5 %; LYMPH ABS # 0.76 K/uL (1.2-3.4); MEAN CELL VOLUME 90.3 fL (80-100); MEAN CORPUSCULAR HEMOGLOBIN 31.5 pg (25-34); MEAN CORPUSCULAR HGB CONC 34.9 g/dl (32-36); MEAN PLATELET VOLUME 9.4 fL (7.4-10.4); MONO % 13.5 %; NEUT % 68.7 %; PLATELET COUNT 114 K/uL (130-400); RED BLOOD COUNT 4.85 M/uL (4.7-6.1); WHITE BLOOD COUNT 5.62 K/uL (4.8-10.8)
[2017-05-06 15:46] LABS: INR 2.3 (0.9-1.1); PARTIAL THROMBOPLASTIN RATIO 1.4; PROTHROMBIN TIME (PATIENT) 25.5 SECONDS (9.0-12.0)
[2017-05-06 15:56] LABS: ALT/SGPT 32 U/L (12-78); AST/SGOT 26 U/L (15-37); BLOOD UREA NITROGEN 19 mg/dl (7-18); CALCIUM 8.6 mg/dl (8.5-10.1); CARBON DIOXIDE 29 mmol/L (21-32); CHLORIDE 104 mmol/L (98-107); CREATININE 0.97 mg/dl (0.60-1.40); GLUCOSE 95 mg/dl (70-99); POTASSIUM 3.9 mmol/L (3.5-5.1); SODIUM 140 mmol/L (136-145)
[2017-05-06 16:04] LABS: ALKALINE PHOSPHATASE 57 U/L (45-117); CKMB/CK RATIO 1.7 (0-3.0)
--- NOTE | 2017-05-06 16:06 | EMERGENCY ROOM VISIT NOTE ---
History Report prepared by Juni: Demi Joseph Under the Supervision of: Dr. Tej Cruz D.O. First contact with patient: 14:49 Chief Complaint: RESPIRATORY PROBLEMS Stated Complaint: VERY SICK, DIFF. BREATHING HX: BLOOD CLOTS History of Present Illness The patient is a 77 year old male who presents to the Emergency Room with complaints of persistent SOB starting earlier today. The patient states that he feels like he did prior to his previous PE. At 1330 today he started having some hip pain. He took some pain medications. Since then he has felt SOB. He feels like he needs oxygen. His mouth feels dry and his abdomen feels bloated. He feels dizzy which he describes as a "fuzziness". He denies any chest pain, headache, or abdominal pain. He had back surgery 3 months ago. Two weeks after the surgery, he was diagnosed with PE. He is on Coumadin now. His INR was 2.4 yesterday. He has been having persistent right leg and foot swelling since his surgery. He had an US yesterday. He has had redness in his feet which he was told was from the swelling. He has been having right hip pain and is being considered for a hip replacement. He has not been walking since his surgery. He has a pressure ulcer on his buttock from sitting for which he is following with wound care. Source of History: patient Onset: earlier today Position: other (global) Quality: other (SOB) Timing: other (persistent) Associated Symptoms: No headache, No chest pain, No abdominal pain Note: Pt reports abdominal bloating, dry mouth, dizzy. Review of Systems See HPI for pertinent positives & negatives. A total of 10 systems reviewed and were otherwise negative. Past Medical & Surgical Medical Problems: (1) Aortic root dilatation (2) Dyslipidemia (3) Lower leg DVT (deep venous thromboembolism), acute (4) Oth Pulmon Embolism/Infarct (5) Paroxysmal SVT (supraventricular tachycardia) (6) Pulmonary embolism (7) TIA (transient ischemic attack) Surgical Problems: (1) H/O left knee surgery (2) H/O nasal polypectomy (3) History of back surgery (4) Hx of cholecystectomy Family History FH: Parkinson's disease BROTHER FH: heart disease FATHER (fatal [place] at age 48) Social History Smoking Status: Never Smoker Alcohol Use: none Drug Use: none Marital Status: Occupation Status: retired Current/Historical Medications Scheduled Aspirin (Aspirin Chewable), 81 MG PO QAM B-Complex Vitamins (Vitamin B Complex), 1 TAB PO QAM Cholecalciferol (Vitamin D), 5,000 UNITS PO QAM Digoxin (Digoxin), 0.125 MG PO HS Krill Oil (Krill Oil), 1,000 MG PO QAM Magnesium Oxide (Mg Supplement (Magnesium), 400 MG PO QAM Metoprolol Tartrate (Lopressor), 25 MG PO BID Rosuvastatin Calcium (Crestor), 5 MG PO QPM Tamsulosin Hcl (Flomax), 0.4 MG PO QPM Warfarin Sodium (Coumadin), 2.5 MG PO 2XWK Warfarin Sodium (Coumadin), 5 MG PO 5XWK Scheduled PRN Azelastine Hcl (Astelin Nasal [place]), 1-2 SPRAYS NA BID PRN for CONGESTION Fluticasone Propionate (Nasal) (Flonase Allergy Relief), 1 SPRAY REILLY DAILY PRN for CONGESTION Hydrocodone/Acetaminophen 5MG/325MG ([place] 5MG/325MG), 1 TABLET PO Q8 PRN for Pain Quinine Sulfate (Quinine Sulfate), 324 MG PO HS PRN for LEG CRAMPING Allergies Coded Allergies: Sulfa Antibiotics (Verified Allergy, Unknown, "EVERYONE IN FAMILY ALLERGIC "-HAS NEVER TAKEN., 05/06/17) Physical Exam Vital Signs Date Time Temp Pulse Resp B/P (MAP) Pulse Ox O2 Delivery O2 Flow Rate FiO2 05/06/17 18:52 69 20 146/91 96 05/06/17 17:37 70 20 151/83 96 Room Air 05/06/17 16:42 73 05/06/17 15:31 Room Air 05/06/17 15:30 76 143/70 77 129/83 76 141/80 05/06/17 15:15 95 Room Air 05/06/17 15:15 95 Room Air 05/06/17 14:40 36.4 77 18 145/80 99 Room Air Physical Exam GENERAL: Patient is awake, alert, and in no acute distress. Patient is resting comfortably and showing no signs of anxiety EYES: The conjunctivae are clear. The pupils are round and reactive. EARS, NOSE, MOUTH AND THROAT: The nose is without any evidence of any deformity. Mucous membranes are moist tongue is midline NECK: The neck is nontender and supple. RESPIRATORY: Lungs sounds diminished at both bases. No tachypnea or conversational dyspnea noted. CARDIOVASCULAR: Regular rate and rhythm noted there no murmurs rubs or gallops normal S1 normal S2 GASTROINTESTINAL: The abdomen is mildly distended, but soft. No tenderness, guarding, or rigidity. MUSCULOSKELETAL/EXTREMITIES: There is no evidence of gross deformity full range of motion is noted in the hips and shoulders SKIN: There is pedal edema bilaterally. NEUROLOGIC: Patient is awake alert and oriented x3 Medical Decision & Procedures ER Provider Diagnostic Interpretation: X-ray results as stated below per interpretation by me and the radiologist. Radiology results as stated below per my review and radiologist interpretation: ABDOMEN 2VIEW W/PA CHEST RTN CLINICAL HISTORY: 77 years-old Male presenting with bloating. TECHNIQUE: PA view of the chest and supine and upright views of the abdomen were obtained. COMPARISON: 01/05/2017. FINDINGS: Atherosclerosis of aortic arch. Cardiac silhouette normal in size.. Lungs and pleural spaces clear. Cholecystectomy clips noted. Mild stool burden. Mottled lucencies throughout the abdomen likely relate to stool. Nonobstructive bowel gas pattern. No evidence of free intraperitoneal gas, pneumatosis, or portal venous gas. Allowing for gas and stool, no evidence of calcifications over the renal shadows. Degenerative changes of the spine. Posterior lumbar fusion hardware with bone graft material in the lower lumbar spine. Degenerative changes of the bilateral hip joints, right greater than left. IMPRESSION: 1. No acute cardiopulmonary disease. 2. Mild stool burden. No bowel obstruction. Electronically signed by: Luis Goldstein M.D. 05/06/2017 5:25 PM Dictated Date/Time: 05/06/2017 5:23 PM HEAD WITHOUT CONTRAST (CT) CLINICAL HISTORY: 77 years-old Male presenting with EVALUATE ALTERED MENTAL STATUS/WEAKNESS, bilateral leg swelling, history of blood clots. TECHNIQUE: Multidetector CT imaging of the head was performed without the use of intravenous contrast. IV contrast: None. A dose lowering technique was used consistent with the principles of ALARA (as low as reasonably achievable). COMPARISON: 05/23/2012. CT DOSE (mGy.cm): The estimated cumulative dose is 691.05 mGy.cm. FINDINGS: Digital Photographer topogram: Unremarkable. Proportional ventricular and sulcal prominence, likely age-related parenchymal volume loss. Brain parenchyma normal in appearance with preserved whitley-white differentiation. No mass effect or midline shift. No hemorrhage or acute territorial infarct. No extra-axial fluid collection. Paranasal sinuses and mastoid air cells clear. Calvarium intact. IMPRESSION: 1. No acute intracranial abnormality. Electronically signed by: Luis Goldstein M.D. 05/06/2017 5:16 PM Dictated Date/Time: 05/06/2017 5:13 PM Laboratory Results 05/06/17 15:20 Red Blood Count 4.85, Mean Corpuscular Volume 90.3, Mean Corpuscular Hemoglobin 31.5, Mean Corpuscular Hemoglobin Concent 34.9, Mean Platelet Volume 9.4, Neutrophils (%) (Auto) 68.7, Lymphocytes (%) (Auto) 13.5, Monocytes (%) (Auto) 13.5, Eosinophils (%) (Auto) 3.9, Basophils (%) (Auto) 0.2, Neutrophils # (Auto ) 3.86, Lymphocytes # (Auto) 0.76, Monocytes # (Auto) 0.76, Eosinophils # (Auto ) 0.22, Basophils # (Auto) 0.01 05/06/17 15:20 Test 05/06/17 15:20 05/06/17 15:27 05/06/17 15:40 White Blood Count 5.62 K/uL (4.8-10.8) Red Blood Count 4.85 M/uL (4.7-6.1) Hemoglobin 15.3 g/dL (14.0-18.0) Hematocrit 43.8 % (42-52) Mean Corpuscular Volume 90.3 fL (80-100) Mean Corpuscular Hemoglobin 31.5 pg (25-34) Mean Corpuscular Hemoglobin Concent 34.9 g/dl (32-36) Platelet Count 114 K/uL (130-400) Mean Platelet Volume 9.4 fL (7.4-10.4) Neutrophils (%) (Auto) 68.7 % Lymphocytes (%) (Auto) 13.5 % Monocytes (%) (Auto) 13.5 % Eosinophils (%) (Auto) 3.9 % Basophils (%) (Auto) 0.2 % Neutrophils # (Auto) 3.86 K/uL (1.4-6.5) Lymphocytes # (Auto) 0.76 K/uL (1.2-3.4) Monocytes # (Auto) 0.76 K/uL (0.11-0.59) Eosinophils # (Auto) 0.22 K/uL (0-0.5) Basophils # (Auto) 0.01 K/uL (0-0.2) RDW Standard Deviation 43.1 fL (36.4-46.3) RDW Coefficient of Variation 13.1 % (11.5-14.5) Immature Granulocyte % (Auto) 0.2 % Immature Granulocyte # (Auto) 0.01 K/uL (0.00-0.02) Prothrombin Time 25.5 SECONDS (9.0-12.0) Prothromb Time International Ratio 2.3 (0.9-1.1) Activated Partial Thromboplast Time 37.2 SECONDS (21.0-31.0) Partial Thromboplastin Ratio 1.4 Anion Gap 7.0 mmol/L (3-11) Est Creatinine Clear Calc Drug Dose 72.1 ml/min Estimated GFR () 86.9 Estimated GFR (Non- 75.0 BUN/Creatinine Ratio 20.0 (10-20) Calcium Level 8.6 mg/dl (8.5-10.1) Magnesium Level 2.0 mg/dl (1.8-2.4) Total Bilirubin 0.4 mg/dl (0.2-1) Direct Bilirubin < 0.1 mg/dl (0-0.2) Aspartate Amino Transf (AST/SGOT) 26 U/L (15-37) Alanine Aminotransferase (ALT/SGPT) 32 U/L (12-78) Alkaline Phosphatase 57 U/L (45-117) Total Creatine Kinase 70 U/L (39-308) Creatine Kinase MB 1.2 ng/ml (0.5-3.6) Creatine Kinase MB Ratio 1.7 (0-3.0) Troponin I < 0.015 ng/ml (0-0.045) Pro-B-Type Natriuretic Peptide 130 pg/ml (0-1800) Total Protein 6.6 gm/dl (6.4-8.2) Albumin 3.4 gm/dl (3.4-5.0) Lipase 131 U/L (73-393) Thyroid Stimulating Hormone (TSH) 1.600 uIu/ml (0.300-4.500) Digoxin Level 0.3 ng/ml (0.8-2.0) Bedside Glucose 89 mg/dl (70-99) Urine Color YELLOW Urine Appearance CLEAR (CLEAR) Urine pH 6.0 (4.5-7.5) Urine Specific [place] 1.016 (1.000-1.030) Urine Protein NEG (NEG) Urine Glucose (UA) NEG (NEG) Urine Ketones NEG (NEG) Urine Occult Blood NEG (NEG) Urine Nitrite NEG (NEG) Urine Bilirubin NEG (NEG) Urine Urobilinogen NEG (NEG) Urine Leukocyte Esterase NEG (NEG) Laboratory results per my review. ECG Indication: weakness Rate (beats per minute): 72 Rhythm: sinus rhythm Findings: PAC, other (no acute ST segment abnormality, LVH by voltage criteria) Comparison ECG Date: 18-Feb-2017 Change: no significant change ED Course 145: The patient was evaluated in room B6. A complete history and physical examination were performed. 1741: I reevaluated the patient. I updated him on the results. 1823: I reevaluated the patient. He feels better and is comfortable going home. I discussed the results and treatment plan with him. He verbalized agreement of the treatment plan. He was discharged home. Medical Decision Prior records/ancillary studies reviewed and summarized above. Nursing notes reviewed. The patient's history was concerning for SOB. Differential diagnosis: Etiologies such as metabolic, infection, hypo/hyperglycemia, electrolyte abnormalities, cardiac sources, intracerebral event, toxicologic, neurologic, as well as others were entertained. The patient is a 77-year-old male who presented to the emergency department for an evaluation of not feeling well. The patient was very vague with his symptoms. He was recently diagnosed with pulmonary embolism and had a Doppler of his legs at [facility] yesterday. There is no DVT noted on the Dopplers. I did have the opportunity to review these with the patient. I discussed the patient's laboratory radiographic studies with him. He was not hypoxic or tachycardic. He stated on final reevaluation at his symptoms had since resolved and he was unsure of exactly how to describe what brought him in. He did not appear to have a dysrhythmia on evaluation. He was encouraged to rest and avoid any strenuous activities. He was encouraged to follow-up with his family doctor soon as possible and continue all medications as prescribed. Otherwise he was encouraged to return the emergency Department immediately if symptoms change worsen or the need arises. Medication Reconcilliation Current Medication List: was personally reviewed by me Blood Pressure Screening Patient's blood pressure: Elevated blood pressure Blood pressure disposition: Referred to PCP Impression Primary Impression: Generalized weakness Scribe Attestation The scribe's documentation has been prepared under my direction and personally reviewed by me in its entirety. I confirm that the note above accurately reflects all work, treatment, procedures, and medical decision making performed by me. Departure Information Dispostion Home / Self-Care Referrals Dana Aponte M.D. (PCP) Forms HOME CARE DOCUMENTATION FORM, IMPORTANT VISIT INFORMATION, WORK / SCHOOL INSTRUCTIONS Patient Instructions ED Weakness JAVIER, [facility] Additional Instructions Rest and avoid any strenuous activity. Continue all medications as prescribed. Call your family to schedule a follow-up appointment. Return to the emergency department immediately if symptoms change worsen or need arises.
[2017-05-06 16:15] LABS: URINE APPEARANCE CLEAR (CLEAR); URINE BILIRUBIN NEG (NEG); URINE COLOR YELLOW; URINE NITRITE NEG (NEG); URINE SPECIFIC GRAVITY 1.016 (1.000-1.030); UROBILINOGEN NEG (NEG)
[2017-05-06 16:16] LABS: MANUAL MICROSCOPIC REQUIRED? NO; REVIEW REQ? NO
--- NOTE | 2017-05-06 17:17 | DIAGNOSTIC IMAGING REPORT ---
HEAD WITHOUT CONTRAST (CT) CLINICAL HISTORY: 77 years-old Male presenting with EVALUATE ALTERED MENTAL STATUS/WEAKNESS, bilateral leg swelling, history of blood clots. TECHNIQUE: Multidetector CT imaging of the head was performed without the use of intravenous contrast. IV contrast: None. A dose lowering technique was used consistent with the principles of ALARA (as low as reasonably achievable). COMPARISON: 05/23/2012. CT DOSE (mGy.cm): The estimated cumulative dose is 691.05 mGy.cm. FINDINGS: Java Analyst topogram: Unremarkable. Proportional ventricular and sulcal prominence, likely age-related parenchymal volume loss. Brain parenchyma normal in appearance with preserved whitley-white differentiation. No mass effect or midline shift. No hemorrhage or acute territorial infarct. No extra-axial fluid collection. Paranasal sinuses and mastoid air cells clear. Calvarium intact. IMPRESSION: 1. No acute intracranial abnormality. Electronically signed by: Luis Goldstein M.D. 05/06/2017 5:16 PM Dictated Date/Time: 05/06/2017 5:13 PM
--- NOTE | 2017-05-06 17:27 | DIAGNOSTIC IMAGING REPORT ---
ABDOMEN 2VIEW W/PA CHEST RTN CLINICAL HISTORY: 77 years-old Male presenting with bloating. TECHNIQUE: PA view of the chest and supine and upright views of the abdomen were obtained. COMPARISON: 01/05/2017. FINDINGS: Atherosclerosis of aortic arch. Cardiac silhouette normal in size.. Lungs and pleural spaces clear. Cholecystectomy clips noted. Mild stool burden. Mottled lucencies throughout the abdomen likely relate to stool. Nonobstructive bowel gas pattern. No evidence of free intraperitoneal gas, pneumatosis, or portal venous gas. Allowing for gas and stool, no evidence of calcifications over the renal shadows. Degenerative changes of the spine. Posterior lumbar fusion hardware with bone graft material in the lower lumbar spine. Degenerative changes of the bilateral hip joints, right greater than left. IMPRESSION: 1. No acute cardiopulmonary disease. 2. Mild stool burden. No bowel obstruction. Electronically signed by: Luis Goldstein M.D. 05/06/2017 5:25 PM Dictated Date/Time: 05/06/2017 5:23 PM
[2017-05-06 18:52] VITALS: BP 146/91; PULSE 69; O2SAT 96
== END 2017-05-06 18:54 | disposition home or self-care (01) ==
LOC: C.EDB 14:35
DX: R53.1 Weakness (principal); R06.02 Shortness of breath; M25.551 Pain in right hip; L89.309 Pressure ulcer of unspecified buttock, unspecified stage; E78.5 Hyperlipidemia, unspecified; Z79.01 Long term (current) use of anticoagulants; Z79.82 Long term (current) use of aspirin; Z98.890 Other specified postprocedural states; Z86.718 Personal history of other venous thrombosis and embolism; Z86.711 Personal history of pulmonary embolism; Z86.73 Personal history of transient ischemic attack (TIA), and cerebral infarction without residual deficits; Z90.49 Acquired absence of other specified parts of digestive tract; Z82.0 Family history of epilepsy and other diseases of the nervous system; Z82.49 Family history of ischemic heart disease and other diseases of the circulatory system

== ENCOUNTER 2017-08-29 08:08 | Inpatient (IN) | payer OTHER ==
[2017-07-31 13:45] VITALS: BMI 27.0
--- NOTE | 2017-07-31 14:25 | PAT Medication Instructions ---
Service Date Jul 31, 2017. Current Home Medication List Acetaminophen (Tylenol), 650 MG PO PRN Aspirin (Aspirin Chewable), 81 MG PO QAM Azelastine Hcl (Astelin Nasal [place]), 1-2 SPRAYS NA BID PRN for CONGESTION B-Complex Vitamins (Vitamin B Complex), 1 TAB PO QAM Cholecalciferol (Vitamin D), 5,000 UNITS PO QAM Digoxin (Digoxin), 0.125 MG PO HS Fluticasone Propionate (Nasal) (Flonase Allergy Relief), 1 SPRAY REILLY DAILY PRN for CONGESTION Furosemide (Lasix), 40 MG PO PRN Krill Oil (Krill Oil), 1,000 MG PO QAM Magnesium Oxide (Mg Supplement (Magnesium), 400 MG PO QAM Metoprolol Tartrate (Lopressor), 25 MG PO BID Quinine Sulfate (Quinine Sulfate), 324 MG PO HS PRN for LEG CRAMPING Rosuvastatin Calcium (Crestor), 5 MG PO 3xweek Tamsulosin Hcl (Flomax), 0.4 MG PO QPM Warfarin Sodium (Coumadin), 5 MG PO QPM Medication Instructions For Your Scheduled Surgery - Check with surgeon/prescribing physician/coumadin clinic for instructions: Warfarin Sodium (Coumadin), 5 MG PO QPM - Continue as directed: Rosuvastatin Calcium (Crestor), 5 MG PO 3xweek Digoxin (Digoxin), 0.125 MG PO HS - Hold the following medications 2 weeks prior to surgery: Krill Oil (Krill Oil), 1,000 MG PO QAM - Hold the following medications the morning of surgery: B-Complex Vitamins (Vitamin B Complex), 1 TAB PO QAM Cholecalciferol (Vitamin D), 5,000 UNITS PO QAM Furosemide (Lasix), 40 MG PO PRN Magnesium Oxide (Mg Supplement (Magnesium), 400 MG PO QAM Quinine Sulfate (Quinine Sulfate), 324 MG PO HS PRN for LEG CRAMPING - Take the following medications the morning of surgery with a sip of water: Metoprolol Tartrate (Lopressor), 25 MG PO BID Fluticasone Propionate (Nasal) (Flonase Allergy Relief), 1 SPRAY REILLY DAILY PRN for CONGESTION Azelastine Hcl (Astelin Nasal [place]), 1-2 SPRAYS NA BID PRN for CONGESTION Aspirin (Aspirin Chewable), 81 MG PO QAM (okay to continue per surgeon) Acetaminophen (Tylenol), 650 MG PO PRN (okay to take up to 4 hours prior to surgery if needed) If you have any questions please call us at [phone] or [phone] or [phone]
[2017-07-31 15:16] LABS: BASO % 0.5 %; BASO ABS # 0.02 K/uL (0-0.2); EOS % 9.2 %; EOS ABS # 0.34 K/uL (0-0.5); HEMATOCRIT 41.6 % (42-52); HEMOGLOBIN 14.6 g/dL (14.0-18.0); IG# 0.01 K/uL (0.00-0.02); LYMPH % 21.6 %; MEAN CELL VOLUME 91.6 fL (80-100); MEAN CORPUSCULAR HEMOGLOBIN 32.2 pg (25-34); MEAN CORPUSCULAR HGB CONC 35.1 g/dl (32-36); MEAN PLATELET VOLUME 9.8 fL (7.4-10.4); MONO % 9.7 %; MONO ABS # 0.36 K/uL (0.11-0.59); NEUT % 58.7 %; NEUT ABS # 2.17 K/uL (1.4-6.5); PLATELET COUNT 124 K/uL (130-400); RED CELL DISTRIBUTION WIDTH CV 14.2 % (11.5-14.5); RED CELL DISTRIBUTION WIDTH SD 47.8 fL (36.4-46.3)
[2017-07-31 15:26] LABS: INR 1.3 (0.9-1.1); PTT PATIENT 30.8 SECONDS (21.0-31.0)
[2017-07-31 15:33] LABS: CALCIUM 8.5 mg/dl (8.5-10.1); CREATININE 0.95 mg/dl (0.60-1.40)
--- NOTE | 2017-08-24 15:43 | HISTORY & PHYSICAL EXAMINATION ---
DATE OF ADMISSION: 08/29/2017 HISTORY AND PHYSICAL ADMISSION NOTE CHIEF COMPLAINT: Advanced osteoarthritis of the right hip. HISTORY OF PRESENT ILLNESS: Raghavendra is a pleasant 77-year-old male who has a history of 6 back surgeries, but is still very active. He has been having continued right hip pain. X-rays and MRI have been diagnostic for advanced osteoarthritis of the right hip. After failing extensive conservative treatment, he elected to proceed with a right total hip arthroplasty. PAST MEDICAL HISTORY: Significant for hypertension. MEDICATIONS: Include metoprolol, digoxin, aspirin, magnesium, Krill oil, vitamin D, Flomax, Flonase, and Voltaren gel. PAST SURGICAL HISTORY: Significant for a left knee surgery in 196; lumbar surgeries in 1972, 1985, 1988, 1992, 1997 and 2016; and a cholecystectomy. ALLERGIES: SULFA. SOCIAL HISTORY: Denies any tobacco, alcohol or IV drug use. FAMILY HISTORY: Denies. REVIEW OF SYSTEMS: He complains of right hip pain. All other pertinent review of systems is negative. PHYSICAL EXAMINATION: GENERAL: He is awake, alert and orient x3. He is in no apparent distress. He is very pleasant. HEENT: Pupils equal, round, reactive to light. Extraocular motions intact. Oral mucosa is pink and moist. HEART: The heart is regular rate per radial pulse. LUNGS: Kristen symmetrically bilaterally with no audible breath sounds. ABDOMEN: Soft, nontender, nondistended. MUSCULOSKELETAL: On physical examination of his right hip, he has equal leg lengths. He has pain with forced internal and external rotation of his hip with pain deep in his groin. He has 5/5 muscle strength to straight leg raising, but it is difficult secondary to pain. IMAGING: X-rays of the hip do show advanced osteoarthritis with joint space narrowing and osteophyte formation. IMPRESSION: Advanced osteoarthritis of the right hip. PLAN: We will proceed with an anterior right total hip arthroplasty. Postoperatively, he will be started on aspirin for DVT prophylaxis and kept in the hospital for postoperative medical management.
[~2017-08-29] VITALS: Ht 185.4 cm; Wt 92.5 kg
[2017-08-29] VITALS (9 sets, daily range): BP systolic 96–133; BP diastolic 61–81; PULSE 52–71; TEMP 36.3–36.6; O2SAT 94–100; Ht 185.4 cm; Wt 92.5 kg
[2017-08-29] MEDS: TRANEXAMIC ACID INJ 1,000 MG x 2 Bags IV SCH ×4 (06:30→08:45)
[~2017-08-29 08:08] MED LIST changes: +ACET-1311 PO; +ACETAMINOPHEN 500 MG TAB PO SCH; +BUPIVACAINE 0.5 % 5 MG/1 ML PF 10ML VIAL ONE; +CEFAZOLIN 2000MG IV PUSH 15 ML IV SCH; -CMD5 PO; +FAMOTIDINE 20 MG TAB PO SCH; +FRS/40 PO; -GABA-113 PO; +GABAPENTIN 300 MG CAP PO SCH; -HYDR-5688 PO; +LACTATED RINGER'S 1000ML 1,000 ML IV SCH; +LACTATED RINGER'S 1000ML 500 ML IV SCH; +LACTATED RINGER'S 1000ML IV SCH; +ROPIVACAINE 5MG/ML 30 ML 150 MG, BUPIVACAINE 0.5% MPF INJ 30 ML, EpINEphrine HCL INJ 0.... INFIL SCH; +WARF5TAB90 PO
[2017-08-29] MEDS ORDERED: MIDAZOLAM HCL 1 MG/ML 2ML VIAL ONE (08:22)
[2017-08-29] MEDS ORDERED: FENTANYL CITRATE INJ 50 MCG/1 ML 2 ML VIAL ONE (08:23)
[2017-08-29 08:43] LABS: PTT PATIENT 30.1 SECONDS (21.0-31.0)
--- NOTE | 2017-08-29 08:45 | History & Physical Bridge Note ---
H&P Re-Evaluation Bridge Note: I have examined the patient, reviewed the History & Physical and in the interval since the performance of the History & Physical I have noted the following changes of clinical significance: No changes noted
[2017-08-29] MEDS ORDERED: [UNRECOGNIZED DRUG - REMARK] SQ (09:04)
[2017-08-29] MEDS ORDERED: ORTHO JOINT ANESTHETIC ONE (09:38)
[2017-08-29] MEDS ORDERED: BACITRACIN 50000 UNIT VIAL ONE (09:38)
[2017-08-29] MEDS ORDERED: LIDOCAINE HCL 2% 2 ML VIAL (20MG/ML) ONE (11:00)
[2017-08-29] MEDS ORDERED: ONDANSETRON INJ 2 MG/ML 2 ML VIAL ONE (11:00)
[2017-08-29] MEDS ORDERED: EpHEDrine SULFATE 50MG/5ML SYR ONE (11:00)
[2017-08-29] MEDS ORDERED: PROPOFOL IV EMULSION 10 MG/ML 20 ML VIAL IV ONE (11:00)
--- NOTE | 2017-08-29 12:04 | [facility] Post Operative Brief Note ---
Immediate Operative Summary Operative Date Aug 29, 2017. Pre-Operative Diagnosis Advanced osteoarthritis of the right hip Post-Operative Diagnosis Advanced osteoarthritis of the right hip Procedure(s) Performed Right Total Anterior Hip arthroplasty Uncemented Surgeon Dr Pato Paez Optician Apprentice Surgeon(s) Todd Murillo PA-C Estimated Blood Loss 250cc Findings Consistent with Post-Op Diagnosis Specimens As Per Surgeon A. Right Femoral Head Anesthesia Type MAC Spinal Regional Complication(s) none Disposition Disposition: Recovery Room / PACU
[2017-08-29] MEDS ORDERED: SOD PHOSPHATE/SOD BIPHOSPHATE ENEMA 132 ML BTL PR PRN (12:15)
[2017-08-29] MEDS ORDERED: FUROSEMIDE 40 MG TAB PO PRN (12:15)
[2017-08-29] MEDS ORDERED: METOCLOPRAMIDE HCL INJ 5 MG/ML 2 ML VIAL IV PRN (12:15)
[2017-08-29] MEDS ORDERED: QUINine SULFATE CAP 324 MG CAP PO PRN (12:15)
[2017-08-29] MEDS ORDERED: MAGNESIUM HYDROXIDE SUSP 30 ML UDC PO PRN (12:15)
[2017-08-29] MEDS ORDERED: ONDANSETRON INJ 2 MG/ML 2 ML VIAL IV PRN ×2 (12:15→13:00)
[2017-08-29] MEDS ORDERED: MoRPHine SULFATE 2 MG/ML CARP IV PRN (12:15)
[2017-08-29] MEDS ORDERED: BISACODYL 10 MG SUPP PR PRN (12:15)
[2017-08-29] MEDS ORDERED: FLUTICASONE PROPIONATE NA SPR 16 GM BTL NAE PRN (12:15)
--- NOTE | 2017-08-29 12:52 | Anesthesiology Progress Note ---
Anesthesia Post Op Note Date & Time Aug 29, 2017 at 12:52 Vital Signs Pain Intensity: 0 Vital Signs Past 12 Hours Date Time Temp Pulse Resp B/P (MAP) Pulse Ox O2 Delivery O2 Flow Rate FiO2 08/29/17 12:47 36.6 08/29/17 12:42 57 18 100 08/29/17 12:42 57 18 08/29/17 12:41 130/65 08/29/17 12:37 59 14 08/29/17 12:37 57 14 100 08/29/17 12:36 66 14 08/29/17 12:36 68 14 121/73 100 08/29/17 12:31 56 16 08/29/17 12:31 57 16 129/65 100 08/29/17 12:26 57 16 08/29/17 12:26 55 16 125/68 100 08/29/17 12:22 130/71 08/29/17 12:21 36.4 55 14 130/71 100 Nasal Cannula 2 08/29/17 08:40 36.4 71 20 133/81 97 Room Air Notes Mental Status: alert / awake / arousable, participated in evaluation Pt Amnestic to Procedure: Yes Nausea / Vomiting: adequately controlled Pain: adequately controlled Airway Patency, RR, SpO2: stable & adequate BP & HR: stable & adequate Hydration State: stable & adequate Anesthetic Complications: no major complications apparent
--- NOTE | 2017-08-29 12:53 | DIAGNOSTIC IMAGING REPORT ---
SINGLE VIEW PELVIS; SINGLE VIEW RIGHT HIP CLINICAL HISTORY: Postoperative examination. FINDINGS: An AP portable view of the hips and pelvis with a crosstable lateral portable view of the right hip are obtained. A bipolar right hip arthroplasty is in near-anatomic alignment. A single cortical lag screw transfixes the acetabular cup. No acute fracture is identified. There are expected postoperative changes overlying the right hip including skin clips, subcutaneous gas, a surgical drain, and soft tissue swelling. Moderate arthritic change is seen in the left hip. IMPRESSION: Expected postoperative findings status post right hip arthroplasty. No acute fracture is seen. Electronically signed by: Raymundo Hansen M.D. 08/29/2017 12:52 PM Dictated Date/Time: 08/29/2017 12:51 PM
[2017-08-29] MEDS ORDERED: PHENYLEPHRINE 100MCG/ML 5ML SYR IV PRN (13:00)
[2017-08-29] MEDS ORDERED: HYDROmorphone INJ 2 MG/ML SYR/VIAL IV PRN (13:00)
[2017-08-29] MEDS ORDERED: EpHEDrine SULFATE INJ 50 MG/ML AMP IV PRN (13:00)
[2017-08-29] MEDS ORDERED: ATROPINE SULFATE 0.1 MG/ML 5ML SYR IV PRN (13:00)
--- NOTE | 2017-08-29 13:28 | DIAGNOSTIC IMAGING REPORT ---
R HIP UNILATERAL 1 VIEW HISTORY: 77 years-old Male RT TOTAL ANTERIOR status post placement of a right hip total joint arthroplasty. Degenerative joint disease. COMPARISON: Pelvis radiograph 07/10/2017 TECHNIQUE: 2 spot fluoroscopic images of the right hip were obtained utilizing 31.7 seconds fluoroscopy time FINDINGS: First image demonstrates surgical resection of the right femoral head and neck with placement of the acetabular hardware component which appears in satisfactory positioning. The second image demonstrates placement of the femoral stem which also appears to be appropriate position. No evidence of periprosthetic fracture or malalignment. The imaged right hemipelvis appears intact. Expected postsurgical soft tissue swelling and deep tissue air about the right hip. IMPRESSION: Satisfactory alignment of right hip total joint arthroplasty. The above report was generated using voice recognition software. It may contain grammatical, syntax or spelling errors. Electronically signed by: Froy Mai M.D. 08/29/2017 1:26 PM Dictated Date/Time: 08/29/2017 1:24 PM
[2017-08-29] MEDS: ACETAMINOPHEN IV 1,000 MG in EMPTY BAG 0 ML IV SCH ×2 (14:36→21:33)
[2017-08-29] MEDS: KETOROLAC TROMETHAMINE 15 MG/ML VIAL IV. SCH ×2 (14:37→20:01)
[2017-08-29] MEDS: WARFARIN SOD 5 MG TAB PO SCH (15:33)
[2017-08-29] MEDS ORDERED: DIGOXIN 0.125 MG TAB PO SCH (16:00)
--- NOTE | 2017-08-29 16:29 | Discharge Instructions ---
Discharge Instructions Date of Service Aug 29, 2017. Admission Reason for Admission: Right Hip Degenerative Joint Disease Discharge Discharge Diagnosis / Problem: Right Total Hip Discharge Goals Goal(s): Decrease discomfort, Improve function Activity Recommendations Activity Limitations: as noted below . Instructions / Follow-Up Instructions / Follow-Up Activity and Therapy Recommendations: * If you are using [facility] then Physical Therapy will be provided until they feel you are ready to start Outpatient Physical Therapy. If you are not using a Home Health agency then Outpatient Physical Therapy should start about 3-5 days from your day of surgery. Therapy will last about 3-6 weeks * You were shown a series of exercises in the hospital. Do these exercises three times each day including the exercises you were shown in physical therapy. * Get up and walk several times each day.~ For the first four weeks, try not to stand or walk for more than one hour at a time. If you do stand or walk for more than one hour, you will not hurt anything, but your leg will likely swell.~ ~ * As you feel comfortable, you may change from the walker or crutches to a cane and~then to independent walking. Medications: * Narcotic You will likely be sent home from the hospital with a prescription for the narcotic pain medication that worked best throughout your stay. * Aspirin Most patients will be required to take Aspirin 325mg twice a day for 6 weeks after surgery. This is obtained [id number] and a prescription is not necessary. * Other medications may be prescribed for specific circumstances. If you have any questions, please call the office at . * Resume previous home medications unless otherwise instructed TEDs/Elastic Stockings: The white elastic stockings help limit swelling and prevent blood clots from forming in your legs. The more you wear them, the more they work. Wear them for six weeks. Dressing Care: The VAC dressing will stay on about 8 days. The batteries will wear out and it will lose suction. Remove the VAC dressing and leave the jersey open to air or cover with dry dressing. Showering: You may shower with the VAC dressing. Let the shower spray hit the opposite side. Things To Watch For: * Drainage from the incision site that occurs more than one week after your surgery. * Increased redness at the incision site. * Fever above 102 degrees Fahrenheit. * Unusual chest pain or shortness of breath. * Call [facility] at with any of the above problems Follow-Up Visit: Follow-up with Dr. Paez 2 weeks after your day of surgery. An appointment was probably scheduled when you signed-up for surgery in the office. If you have any questions call Office Instructions: More detailed instructions as well as Frequently Asked Questions were provided in a folder by our office when you signed-up for surgery. Please review these instructions when you get home. If you have any further questions or concerns, please feel free to call the office at [phone] Current Hospital Diet Patient's current hospital diet: Regular Diet Discharge Diet Recommended Diet: Regular Diet Procedures Procedures Performed: Right Total Anterior Hip arthroplasty Uncemented Pending Studies Studies pending at discharge: no Medical Emergencies . Who to Call and When: Medical Emergencies: If at any time you feel your situation is an emergency, please call 911 immediately. . Non-Emergent Contact Non-Emergency issues call your: Surgeon Call Non-Emergent contact if: wound has increased drainage, wound has increased redness . "Provider Documentation" section prepared by Pato Paez. . VTE Core Measure Inpt VTE Proph given/why not?: Enoxaparin (Lovenox)SQ, Warfarin (Coumadin)
[2017-08-29] MEDS: CEFAZOLIN IV 2,000 MG in SYRINGE 0 ML IV SCH (17:49)
--- NOTE | 2017-08-29 18:33 | OPERATIVE REPORT ---
DATE OF OPERATION: 08/29/2017 PREOPERATIVE DIAGNOSIS: Primary osteoarthritis of the right hip. POSTOPERATIVE DIAGNOSIS: Same. PROCEDURE: Right total hip arthroplasty. SURGEON: Pato Paez DO. HOMEWORKER: Todd Murillo PA-C, whose assistance was necessary for retraction and helping with closure. ANESTHESIA: Spinal. COMPLICATIONS: None. CONDITION: Stable to PA-C. IMPLANTS USED: I used a [employer] Taperloc total hip arthroplasty system with a size 18 Taperloc stem, a size 56 G7 cup and E1 poly liner with a size 40 ceramic head with a +3 neck. INDICATIONS: Raghavendra is a pleasant 77-year-old male who has been having increasing pain in his right hip. X-rays and clinical examination were diagnostic for primary osteoarthritis of the right hip. After failing conservative treatment, he elected to undergo a right total hip arthroplasty. OPERATION AND FINDINGS: On 08/29/2017, he arrived at [facility] for the above procedure. He was seen in the preoperative holding and the operative extremity was identified and signed. He was given a preoperative antibiotic and a spinal anesthetic. He was taken back to the operating room, laid on the table in supine position and put under basic sedation. The right hip was then prepped and draped in sterile fashion. Time-out was done. The patient and operative extremity was properly identified. The right hip was brought to a Purist leg positioner. An anterior approach was used. Dissection was taken down through the fascia and the tensor muscle was retracted laterally and the rectus was retracted medially. The circumflex vessels were ligated and the capsule was exposed. The capsule was then incised and tagged for later repair. The femoral neck was exposed and the femoral neck was resected. The head was then removed. The acetabulum was exposed and time was spent doing a complete circumferential labral release. Sequential reaming up to a size 55 reamer was done. Final reamings were done under fluoroscopy to ensure adequate version. A size 56 mm G7 cup was then impacted into place. A 30 mm screw was placed and an E1 poly liner was snapped into place. The proximal femur was then exposed. Sequential broaching up to a size 18 broach was done. Off that broach, a standard head and neck assembly was applied and the hip was reduced. I was happy with the overall size of the components but thought I could use a little more length. The hip was then dislocated. A final size 18 high offset Taperloc stem was then impacted into place. A size 40 ceramic head with a +3 neck was then impacted into place. The hip was then reduced. Final fluoroscopic images showed anatomic alignment. The surrounding soft tissues were injected with 100 mL of an orthopedic pain control cocktail. The wound was then irrigated with 3 liters of normal saline solution with bacitracin. The capsule was then closed with #1 Vicryl. A drain was placed. Fascia was closed with #1 PDS. Skin was closed with 2-0 Vicryl and jersey. He was then placed in a Prevena VAC dressing and taken to the postanesthesia care unit stable condition. He tolerated the procedure well. I attest to the content of the Intraoperative Record and any orders documented therein. Any exception s are noted below.
[2017-08-29] MEDS: SODIUM CHLORIDE 0.9% 1000ML 1,000 ML IV SCH (20:00)
[2017-08-29] MEDS ORDERED: NURSING VERBAL MED ORDER ONE (20:15)
[2017-08-29] MEDS: METOPROLOL TARTRATE 25 MG TAB PO SCH (20:55)
[2017-08-29] MEDS: SENNA 8.6 MG TAB PO SCH (20:56)
[2017-08-29] MEDS: DOCUSATE SODIUM 100 MG CAP PO SCH (20:56)
[2017-08-29] MEDS ORDERED: TAMSULOSIN HCL 0.4 MG CAP PO SCH (21:00)
[2017-08-29] MEDS: DIGOXIN 0.125 MG TAB PO SCH (21:32)
[2017-08-29] MEDS: OXYCODONE HCL IR 5 MG TAB (IMMEDIATE RELEASE) PO PRN (23:01)
[2017-08-30] VITALS (11 sets, daily range): BP systolic 84–131; BP diastolic 54–66; PULSE 54–99; TEMP 36.1–36.7; O2SAT 96–99
[2017-08-30] MEDS: CEFAZOLIN IV 2,000 MG in SYRINGE 0 ML IV SCH (02:16)
[2017-08-30] MEDS: KETOROLAC TROMETHAMINE 15 MG/ML VIAL IV. SCH ×4 (02:17→20:29)
[2017-08-30] MEDS: SODIUM CHLORIDE 0.9% 1000ML 1,000 ML IV SCH (05:55)
[2017-08-30] MEDS: ACETAMINOPHEN IV 1,000 MG in EMPTY BAG 0 ML IV SCH (05:56)
[2017-08-30] MEDS: OXYCODONE HCL IR 5 MG TAB (IMMEDIATE RELEASE) PO PRN ×2 (06:06→16:08)
[2017-08-30 06:13] LABS: BASO % 0.1 %; BASO ABS # 0.01 K/uL (0-0.2); EOS % 1.4 %; EOS ABS # 0.12 K/uL (0-0.5); HEMATOCRIT 30.7 % (42-52); HEMOGLOBIN 10.8 g/dL (14.0-18.0); IG# 0.02 K/uL (0.00-0.02); LYMPH % 10.1 %; LYMPH ABS # 0.86 K/uL (1.2-3.4); MEAN CELL VOLUME 88.5 fL (80-100); MEAN CORPUSCULAR HEMOGLOBIN 31.1 pg (25-34); MEAN CORPUSCULAR HGB CONC 35.2 g/dl (32-36); MEAN PLATELET VOLUME 9.3 fL (7.4-10.4); MONO % 13.5 %; MONO ABS # 1.15 K/uL (0.11-0.59); NEUT % 74.7 %; NEUT ABS # 6.35 K/uL (1.4-6.5); PLATELET COUNT 113 K/uL (130-400); RED CELL DISTRIBUTION WIDTH CV 13.9 % (11.5-14.5); RED CELL DISTRIBUTION WIDTH SD 44.9 fL (36.4-46.3); WHITE BLOOD COUNT 8.51 K/uL (4.8-10.8)
[2017-08-30] MEDS: ENOXAPARIN 30 MG/0.3 ML SYR SQ SCH ×2 (06:37→18:10)
[2017-08-30 06:51] LABS: CALCIUM 7.8 mg/dl (8.5-10.1); CREATININE 0.98 mg/dl (0.60-1.40); POTASSIUM 4.3 mmol/L (3.5-5.1)
--- NOTE | 2017-08-30 07:46 | Clinical Documentation Query ---
CLINICAL DOCUMENTATION QUERY Dr. ZULUAGA, In your clinical opinion is this patient being managed for: ( ) Acute blood loss anemia ( ) Not Agree (X ) Other explanation of clinical findings (Please Explain) Likely post-operative hypotension 12 hours after major surgery. Still recovering from anesthesia. ( ) Unable to determine (Please Define) ( ) Need to Discuss The medical record reflects the following clinical findings, treatment, and risk factors. Clinical Indicators: 77 yo male presented with R hip DJD for a R JUSTIN. Baseline Hgb 14.6/Hct 41.6 dropping to 10.8/30.7. Hypotensive 90/54-96/62. Nursing documentation reflects pt with near syncopal episode while out on BSC, preceded by dizziness and paleness. EBL of 250 cc with additional hemovac drainage of 530 cc. Treatment: monitor CBC's, IV fluids, O2 support, physician notification Risk Factors:surgery with blood loss Please clarify and document your clinical opinion in the progress notes and discharge summary. Terms such as "probable", "suspected", "likely", "questionable", "possible", or "still to be ruled out" are acceptable. IF IN AGREEMENT, YOU MUST DOCUMENT ABOVE DIAGNOSTIC STATEMENT IN DAILY PROGRESS NOTES AND DISCHARGE SUMMARY. This document is not part of the patient's record. Thank You, Lovely Padilla RN [phone]
--- NOTE | 2017-08-30 07:49 | PROGRESS NOTE ---
DATE: 08/30/2017 CHIEF COMPLAINT: Status post right total hip arthroplasty postop day #1. PROGRESS: Raghavendra was seen and examined at bedside today. Overall, he is doing fairly well. He did get up last night to use the bathroom. He had nursing to help, but he felt dizzy and had to be helped back into bed. He then got straight catheterization. Overall, though he seems to be feeling fine. His oxygen saturations are fine. He has no other complaints. PHYSICAL EXAMINATION: The Prevena VAC dressing is intact. The Hemovac is to suction. His leg lengths are equal. He has active dorsiflexion, plantar flexion of his right ankle. LABORATORY DATA: He has an H&H today of 10.8 and 30.7. His glucose is 137. His vital signs are relatively stable but he is a little hypotensive. He is satting 97% on room air. He was voiding on his own until this most recent incident and his drain has put out 150 mL so far today. X-rays postoperatively of the right hip show the prosthesis to be in anatomic alignment without any evidence of fracture, dislocation or loosening. IMPRESSION: Status post right total hip arthroplasty postop day #1. PLAN: At this point, he is doing fairly well. He will continue to drink fluids and he will work today with physical therapy. We will see him tomorrow morning and likely pull the drain and will talk about discharge to home with [facility]. He is currently on Lovenox 30 mg twice a day as a bridge and Coumadin 5 mg daily. He does have a history of DVTs.
--- NOTE | 2017-08-30 08:07 | Anesthesiology Progress Note ---
Anesthesia Post Op Note Date & Time Aug 30, 2017 at 08:07 Vital Signs Pain Intensity: 7.0 Vital Signs Past 12 Hours Date Time Temp Pulse Resp B/P (MAP) Pulse Ox O2 Delivery O2 Flow Rate FiO2 08/30/17 07:40 36.1 64 14 88/56 (67) 96 Room Air 08/30/17 07:14 36.3 61 12 90/54 (66) 98 Room Air 08/30/17 07:10 Room Air 08/30/17 05:53 54 111/64 (80) 99 Nasal Cannula 2.0 08/30/17 03:20 36.3 67 17 94/57 (69) 97 Room Air 08/29/17 23:15 Room Air 08/29/17 23:02 36.3 64 17 96/61 (73) 98 Room Air 08/29/17 21:32 71 08/29/17 20:55 71 96/62 (73) Notes Mental Status: alert / awake / arousable, participated in evaluation Pt Amnestic to Procedure: Yes Nausea / Vomiting: adequately controlled Pain: adequately controlled Airway Patency, RR, SpO2: stable & adequate BP & HR: stable & adequate Hydration State: stable & adequate Anesthetic Complications: no major complications apparent
[2017-08-30] MEDS: METOPROLOL TARTRATE 25 MG TAB PO SCH ×2 (08:26→20:31)
[2017-08-30] MEDS: MAGNESIUM OXIDE 400 MG TAB PO SCH (08:27)
[2017-08-30] MEDS: CHOLECALCIFEROL 1000 INTER.UNIT TAB PO SCH (08:28)
[2017-08-30] MEDS: MULTIVITAMIN TAB PO SCH (08:28)
[2017-08-30] MEDS: VITAMIN B COMPLEX TAB PO SCH (08:28)
[2017-08-30] MEDS: DOCUSATE SODIUM 100 MG CAP PO SCH ×2 (08:29→20:33)
[2017-08-30] MEDS ORDERED: NON-FORMULARY MEDICATION (Krill Oil 1,000 MG) PO SCH (09:00)
[2017-08-30] MEDS ORDERED: SODIUM CHLORIDE 0.9% 500ML 500 ML IV ONE (14:30)
[2017-08-30] MEDS ORDERED: NURSING VERBAL MED ORDER ONE ×2 (14:30→17:00)
[2017-08-30] MEDS: WARFARIN SOD 5 MG TAB PO SCH (16:06)
[2017-08-30] MEDS ORDERED: TAMSULOSIN HCL 0.4 MG CAP PO SCH (17:00)
[2017-08-30] MEDS: DIGOXIN 0.125 MG TAB PO SCH (20:33)
[2017-08-30] MEDS: SENNA 8.6 MG TAB PO SCH (20:34)
[2017-08-30] MEDS: ACETAMINOPHEN 500 MG TAB PO SCH (22:29)
[2017-08-31 01:10] VITALS: BP 89/52
[2017-08-31 02:20] VITALS: BP 106/68; PULSE 68
[2017-08-31] MEDS: KETOROLAC TROMETHAMINE 15 MG/ML VIAL IV. SCH ×2 (02:23→07:24)
[2017-08-31] MEDS: OXYCODONE HCL IR 5 MG TAB (IMMEDIATE RELEASE) PO PRN ×2 (03:34→07:37)
[2017-08-31] MEDS: ACETAMINOPHEN 500 MG TAB PO SCH (05:44)
[2017-08-31] MEDS: ENOXAPARIN 30 MG/0.3 ML SYR SQ SCH (05:44)
[2017-08-31 06:14] VITALS: BP 136/75; PULSE 80; TEMP 36.5; O2SAT 97
[2017-08-31] MEDS ORDERED: LVNIS30 SQ (06:24)
[2017-08-31] MEDS ORDERED: HYDR-5688 PO (06:24)
--- NOTE | 2017-08-31 06:49 | PROGRESS NOTE ---
DATE: 08/31/2017 CHIEF COMPLAINT: Status post right total hip arthroplasty postop day #2. PROGRESS: Raghavendra was seen and examined at bedside today. Overall, he is doing very well. He has been a little hypotensive, but he was able to ambulate into the hallways well with physical therapy without feeling lightheaded or dizzy. He states his blood pressure usually runs low. He has some soreness in the hip, but otherwise no complaints. PHYSICAL EXAMINATION: RIGHT HIP: The Prevena VAC dressing is to suction. The drain has been pulled. His leg lengths are equal. He has active dorsiflexion, plantar flexion of his right ankle. VITAL SIGNS: His blood pressure is 136/75 this morning. All of his vital signs are stable on room air and his blood pressure was down to 89/52 at 1:10 this morning but that is the lowest it has been in the last 12 hours. IMPRESSION: 1. Status post right total hip arthroplasty postop day #2. 2. Postoperative hypotension that is resolving. PLAN: Overall he seems to be doing well. He says his blood pressure always runs low. He is up and ambulating well with physical therapy without any symptoms. He will get some breakfast this morning and be seen by physical therapy again. As long as he can get up and ambulate without any symptoms, he can be discharged to home with [facility] later this morning.
--- NOTE | 2017-08-31 06:58 | DISCHARGE SUMMARY ---
DISCHARGE DIAGNOSIS: Primary osteoarthritis of the right hip. PROCEDURE: Right total hip arthroplasty on 08/29/[address] Pato Paez. DISCHARGE INSTRUCTIONS: 1. Lovenox 30 mg twice a day until INR levels are therapeutic. 2. Coumadin 5 mg daily and follow up with Coumadin clinic. 3. Vale 5/325 every 6 hours as needed for pain. 4. Tylenol 650 mg as needed, not to exceed 3000 mg in a day. 5. Aspirin 81 mg daily. 6. Astelin nasal spray 1-2 sprays twice a day as needed. 7. Vitamin D 1 tab daily. 8. Vitamin D 5000 units daily. 9. Digoxin 0.125 mg at night. 10. Flonase 50 mcg daily as needed. 11. Lasix 40 mg daily. 12. Krill oil 1000 mg daily. 13. Magnesium 400 mg daily. 14. Lopressor 25 mg twice a day. 15. Quinine 324 mg as needed. 16. Crestor 5 mg 3 times a week. 17. Flomax 0.4 mg daily. 18. Follow up with Dr. Paez in 2 weeks. 19. Call the office of Dr. Paez with any questions or concerns. 20. Remove Prevena VAC dressing 8 days from the day of surgery. HOSPITAL COURSE: Raghavendra is a pleasant 77-year-old male who presented to my office with complaints of chronic right hip and groin pain. X-rays and clinical examination were diagnostic for primary osteoarthritis of the right hip. After failing conservative treatment, he elected to undergo a right total hip arthroplasty. On 08/29/2017, he arrived at [facility] and underwent a right hip replacement without complication. He had a spinal anesthetic. Postoperatively, he was started on Lovenox 30 mg twice a day and Coumadin for DVT prophylaxis. His hospital course was relatively uneventful. On postop day #1, his H&H was stable at 10.8 and 30.7. He did have an episode when he was a little hypotensive when he was out of bed. He was able to be returned to bed and laid down. He was feeling much better. His blood pressure usually runs low according to the patient. He was able to get up again and ambulate well with physical therapy without any problems. We did give him a fluid bolus and encouraged oral p.o. intake. Overall, he seems relatively asymptomatic. On postop day #2, he continued to do well. The drain was pulled. The Prevena VAC dressing was intact. He was able to ambulate well once again with physical therapy and was subsequently discharged to home with [facility] and the above instructions.
[2017-08-31 07:15] VITALS: TEMP 36.5; O2SAT 97
[2017-08-31] MEDS: DOCUSATE SODIUM 100 MG CAP PO SCH (07:23)
[2017-08-31] MEDS: MULTIVITAMIN TAB PO SCH (07:23)
[2017-08-31] MEDS: VITAMIN B COMPLEX TAB PO SCH (07:24)
[2017-08-31] MEDS: MAGNESIUM OXIDE 400 MG TAB PO SCH (07:24)
[2017-08-31] MEDS: CHOLECALCIFEROL 1000 INTER.UNIT TAB PO SCH (07:24)
[2017-08-31 07:28] VITALS: BP 100/60; PULSE 84
[2017-08-31] MEDS: METOPROLOL TARTRATE 25 MG TAB PO SCH (07:29)
== END 2017-08-31 11:50 | disposition home health service (06) | DRG 470 ==
LOC: C.ACU 08:08 → C.3E 08:09 → ENRESERV 12:34
PROVIDERS: ADMIT Orthopaedic Surgery; ATTEND Orthopaedic Surgery
PROC: 0SR904A Replacement of Right Hip Joint with Ceramic on Polyethylene Synthetic Substitute, Uncemented, Open Approach (ICD-10-PCS; principal; 2017-08-29 10:15)
DX: M16.11 Unilateral primary osteoarthritis, right hip (principal); I95.81 Postprocedural hypotension; I10 Essential (primary) hypertension; Z79.01 Long term (current) use of anticoagulants; Z79.82 Long term (current) use of aspirin; Z79.899 Other long term (current) drug therapy; Z88.2 Allergy status to sulfonamides; Z86.718 Personal history of other venous thrombosis and embolism

== ENCOUNTER → 2017-09-15 | Outpatient (CLI) | payer OTHER ==
[~2017-09-15] MED LIST changes: -ACETAMINOPHEN 500 MG TAB PO SCH; -BUPIVACAINE 0.5 % 5 MG/1 ML PF 10ML VIAL ONE; -CEFAZOLIN 2000MG IV PUSH 15 ML IV SCH; -FAMOTIDINE 20 MG TAB PO SCH; -GABAPENTIN 300 MG CAP PO SCH; +HYDR-5688 PO; -LACTATED RINGER'S 1000ML 1,000 ML IV SCH; -LACTATED RINGER'S 1000ML 500 ML IV SCH; -LACTATED RINGER'S 1000ML IV SCH; +LVNIS30 SQ; -ROPIVACAINE 5MG/ML 30 ML 150 MG, BUPIVACAINE 0.5% MPF INJ 30 ML, EpINEphrine HCL INJ 0.... INFIL SCH
--- NOTE | 2017-09-15 12:36 | DIAGNOSTIC IMAGING REPORT ---
BILATERAL LOWER EXTREMITY VENOUS DOPPLER HISTORY: LEFT LEG PAIN AND SWELLING S/P JUSTIN R/O DVT COMPARISON STUDY: None. FINDINGS: No DVT within the left lower extremity. There is a 5.9 x 6.1 x 2.4 cm cyst within the popliteal fossa. This contains a few internal echoes. No acute DVT within the right lower cavity. Small amount of nonocclusive peripheral calcification within the right popliteal vein consistent with chronic DVT. There is a 4.8 x 1.1 x 3.0 cm popliteal cyst. Adjacent to the popliteal cyst there is a 1.9 x 0.7 x 1.5 cm oval circumscribed lesion with peripheral calcification. This has a benign appearance. IMPRESSION: 1. No acute DVT within the right or left lower extremity. 2. 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 3. Bilateral popliteal cysts. Electronically signed by: Andres Silver M.D. 09/15/2017 12:34 PM Dictated Date/Time: 09/15/2017 12:29 PM
== END | disposition home or self-care (01) ==
LOC: C.ULTRBC 11:33
PROVIDERS: ATTEND Orthopaedic Surgery
DX: M79.605 Pain in left leg (principal); R60.0 Localized edema; Z96.642 Presence of left artificial hip joint; M71.21 Synovial cyst of popliteal space [Baker], right knee; M71.22 Synovial cyst of popliteal space [Baker], left knee

== ENCOUNTER 2021-02-26 10:33 | Observation (INO) ==
--- NOTE | 2021-01-14 15:34 | PAT Medication Instructions ---
Medication Instructions Date of Service January 14, 2021 Home Medications aspirin 81 mg tablet,delayed release 81 mg PO 3XWK azelastine 137 mcg (0.1 %) nasal spray aerosol 2 spray INTRANASAL DAILY PRN cholecalciferol (vitamin D3) 125 mcg (5,000 unit) tablet (Vitamin D3) 5,000 unit PO QAM digoxin 125 mcg (0.125 mg) tablet (Digox) 125 mcg PO HS fluticasone propionate 50 mcg/actuation nasal spray,suspension (Flonase Allergy Relief) 2 spray INTRANASAL DAILY PRN furosemide 40 mg tablet (Lasix) 40 mg PO DAILY PRN krill 1,000 mg-omega-3 170 mg-dha 50 mg-epa 80 [id number] capsule (krill oil) 1 cap PO QAM magnesium oxide 400 mg PO QAM metoprolol tartrate 25 mg tablet 12.5 mg PO BID quinine sulfate 324 mg capsule (Qualaquin) 324 mg PO HS PRN warfarin 5 mg tablet (Jantoven) 5 - 7.5 mg PO QPM rosuvastatin 20 mg tablet 20 mg PO HS ASK your prescriber and surgeon aspirin 81 mg tablet,delayed release 81 mg PO 3XWK warfarin 5 mg tablet (Jantoven) 5 - 7.5 mg PO QPM STOP taking 2 weeks before surgery (or as soon as possible if surgery is within 2 weeks) krill 1,000 mg-omega-3 170 mg-dha 50 mg-epa 80 [id number] capsule (krill oil) 1 cap PO QAM DO NOT take the morning of surgery cholecalciferol (vitamin D3) 125 mcg (5,000 unit) tablet (Vitamin D3) 5,000 unit PO QAM furosemide 40 mg tablet (Lasix) 40 mg PO DAILY PRN magnesium oxide 400 mg PO QAM Take morning of surgery With a small sip of water, OTHERWISE NOTHING TO EAT OR DRINK AFTER MIDNIGHT: azelastine 137 mcg (0.1 %) nasal spray aerosol 2 spray INTRANASAL DAILY PRN (if needed) fluticasone propionate 50 mcg/actuation nasal spray,suspension (Flonase Allergy Relief) 2 spray INTRANASAL DAILY PRN (if needed) metoprolol tartrate 25 mg tablet 12.5 mg PO BID Take evening before surgery azelastine 137 mcg (0.1 %) nasal spray aerosol 2 spray INTRANASAL DAILY PRN (if needed) digoxin 125 mcg (0.125 mg) tablet (Digox) 125 mcg PO HS fluticasone propionate 50 mcg/actuation nasal spray,suspension (Flonase Allergy Relief) 2 spray INTRANASAL DAILY PRN (if needed) furosemide 40 mg tablet (Lasix) 40 mg PO DAILY PRN (if needed) metoprolol tartrate 25 mg tablet 12.5 mg PO BID quinine sulfate 324 mg capsule (Qualaquin) 324 mg PO HS PRN (if needed) rosuvastatin 20 mg tablet 20 mg PO HS Other Notes If you have any questions please call us at [phone] or [phone] or [phone] or [phone]
--- NOTE | 2021-01-18 14:41 | Anesthesiology Consultation ---
Date of Service January 18, 2021 Assessment & Plan (1) Encounter for pre-operative examination: - COVID screening: Per assessment on 01/18: Travel screen negative, no known COVID-19 positive contacts or current COVID-19 related symptoms. Patient vaccinated. Surgeon arranging preop COVID testing. Awaiting results. - Cardiology note (11/09/20): Evaluated by cardiology prior to TURP (done 11/13/20 at [facility] Stress test ordered for risk assessment (done 10/2020) > "Stress test is negative for inducible ischemia. He is cleared for surgery." - Hx glidescope intubation: TURP (11/13/20; [facility]): Grade view 1, glidescope 3, ETT 7.5 at [facility] - Cardiology office visit (12/29/20): "returns in routine cardiology follow up having most recently been seen by Fawn Ward PA-C 6 months ago. In the meantime , pt had a DSE for preoperative risk stratification in 10/2020 in advance of TURP . DSE was negative for ischemia with stable aortic root and ascending aorta measurements. He noted transient visual disturbances post TURP with have resolved. CT of brain 10/2020 was negative. He was seen in the ED at [place] for hematuria, and urinary retention . A King catheter was placed. Hematuria since resolved off of ASA (remains on coumadin) and his catheter has since bee [sic] removed... Patient describes stable cardiac signs and symptoms. I think it is most reasonable to proceed off of ASA and on coumadin monotherapy, INR 2-3. He is on coumadin for past DVT / PE. If has recurrent TIA symptoms , will need to add back ASA. Continue GI follow up for hemachromatosis with hepatic invo lvement. Pt found to have equivocal R ear cartilage abnormality on US. Radiology report describes MRI as possible next step for assessment. Pt however describes not tolerating MRI of brain in past due to claustrophobia. Will help facilitate primary care follow up to this regard." F/U 6 months recommended. Per PCP evaluated 01/01/21, "Reassurance his ear "lump" is c/w benign cartilege i rregularity. Recommend observation. Will consider further imaging if it is growing/ changing in any way but not necessary at this time." - Check coags AM DOS (warfarin instructions per surgeon/coag clinic) - Per patient, informed by surgeon's office that plan is to stay at least overnight postoperatively. Chart Review Chart Review: Acceptable Risk for Surgery and Patient seen in Pre Admission Testing Teaching & Discussion Pre-Anesthesia Teaching/Discussion Notes: Instructed NPO after midnight before surgery,except medications with 15 cc of water. Medication instructions provided according to the PAT guidelines. History Surgery Operation Date: 02/26/21 10:20 Proposed Procedures p Right Reverse Total Shoulder Arthroplasty - Pato Paez DO Height/Weight Height: 6 ft 1 in Weight: 85.6 kg Allergies Allergy/AdvReac Type Severity Reaction Status Date / Time Sulfa (Sulfonamide Allergy Unknown "Everyone Verified 01/15/21 16:27 Antibiotics) in family" Medications Home Medications Medication Instructions Recorded Confirmed Last Taken azelastine 137 mcg (0.1 %) nasal 2 spray INTRANASAL DAILY PRN 10/01/18 01/18/21 08/21/18 spray aerosol cholecalciferol (vitamin D3) 125 5,000 unit PO QAM 10/01/18 01/18/21 10/13/18 mcg (5,000 unit) tablet (Vitamin D3) digoxin 125 mcg (0.125 mg) tablet 125 mcg PO HS 10/01/18 01/18/21 10/13/18 (Digox) fluticasone propionate 50 2 spray INTRANASAL DAILY PRN 10/01/18 01/18/21 09/11/18 mcg/actuation nasal spray,suspension (Flonase Allergy Relief) furosemide 40 mg tablet (Lasix) 40 mg PO DAILY PRN 10/01/18 01/18/21 08/15/18 krill 1,000 mg-omega-3 170 mg-dha 1 cap PO QAM 10/01/18 01/18/21 10/13/18 50 mg-epa 80 [id number] capsule (krill oil) magnesium oxide 400 mg PO QAM 10/01/18 01/18/21 10/13/18 metoprolol tartrate 25 mg tablet 12.5 mg PO BID 10/01/18 01/18/21 10/13/18 quinine sulfate 324 mg capsule 324 mg PO HS PRN 10/01/18 01/18/21 Unknown (Qualaquin) warfarin 5 mg tablet (Jantoven) 5 - 7.5 mg PO QPM 10/01/18 01/18/21 10/13/18 rosuvastatin 20 mg tablet 20 mg PO HS 12/09/20 01/18/21 Unknown Past Medical History Medical History Aortic root dilatation Moderately enlarged, unchanged compared to 02/04/2020 (per 11/09/20 DSE report) Basal cell carcinoma of nose BPH (benign prostatic hyperplasia) Carotid artery disease B/L ICA stenosis < 50% Deep vein thrombosis LLE DVT (2011) Dyslipidemia GERD (gastroesophageal reflux disease) Controlled Hearing deficit No aids Hemochromatosis Hereditary hemochromatosis, phlebotomy q6 months per GI (most recent 08/2020 per GI), (per PCP 12/2020, recent transferrin level WNL) Hyperlipidemia Hypertension Osteoarthritis Paroxysmal SVT (supraventricular tachycardia) Follows with Dr. Higgins Pulmonary embolism Post-op (2011) TIA (transient ischemic attack) TIA (2014/no evidence of CVA on MRI per PCP records) Exercise / Class Metabolic Activity II 4-5 Yardwork/Stairs/Walk up hill (one FS (no CP, no SOB)) Past Family History Family History Brother Family hx colonic polyps Other No family history of adverse response to anesthesia Past Surgical History Surgical History H/O left knee surgery H/O nasal polypectomy History of back surgery x6 (including rods/screws) History of colonoscopy History of esophagogastroduodenoscopy (EGD) History of left knee surgery History of prostate surgery TURP (11/13/20; [facility]): Grade view 1, glidescope 3, ETT 7.5 at [facility] History of tooth extraction History of total right hip replacement Hx of cholecystectomy Status post Mohs surgery for basal cell carcinoma Past Anesthesia History Difficult Airway (TURP (11/13/20; [facility]): Grade view 1, glidescope 3, ETT 7.5 at [facility]), No Family Hx of Anesthesia Complications and Other (Post-op hallucinations (TURP/[facility] 10/2020)- Anesthesia records scanned into [employer]) History of PONV No Hx of PONV and No Hx of Motion Sickness Social History Smoking Status: Never smoker Do You Dip or Chew Tobacco: No Hx Alcohol Use: No Hx Substance Use: No substance use type: does not use Review of Systems Patient denies chest pain, shortness of breath, dyspnea on exertion, fever, chills, cough, wheezing, palpitations. Physical Exam Vital Signs VITALS BP 106/55 P 65 TEMP 98.4 SP02 96%RA RESP 16 PHYSICAL Decreased cervical extension range of motion. Full TMJ range of motion. TMD 3 finger breaths Mallampati Score 1 Dentition: upper partial Lungs: clear throughout to auscultation Cardiac: regular rate and rhythm, no murmurs noted Spine: normal Carotid arteries: negative bruit Extremities: no edema Lab Results Anesthesia Preop Results Results Anesthesia Widget: WBC 5.53 K/uL (4.8-10.8) 01/18/21 Hgb 13.7 g/dL (14.0-18.0) L 01/18/21 Hct 40.2 % (42-52) L 01/18/21 Plt 137 K/uL (130-400) 01/18/21 Na 142 mmol/L (136-145) 01/18/21 K 4.6 mmol/L (3.5-5.1) 01/18/21 Cl 109 mmol/L (98-107) H 01/18/21 CO2 31 mmol/L (21-32) 01/18/21 BUN 15 mg/dl (7-18) 01/18/21 Creat 0.87 mg/dl (0.6-1.4) 01/18/21 Glucose Level 105 mg/dl (70-99) H 01/18/21 PT 18.6 Seconds (9.0-12.0) H 01/18/21 PTT 36.2 Seconds (21.0-31.0) H 01/18/21 INR 1.9 (0.9-1.1) H 01/18/21 Urine Color Yellow 01/07/21 Urine Appearance Cloudy (Clear) A 01/07/21 Urine pH 6.0 (4.5-7.5) 01/07/21 Urine Specific [place] 1.013 (1.000-1.030) 01/07/21 Urine Protein Negative (Negative) 01/07/21 Urine Glucose (UA) Negative (Negative) 01/07/21 Urine Ketones Negative (Negative) 01/07/21 Urine Blood Trace (Negative) H 01/07/21 Urine Nitrite Negative (Negative) 01/07/21 Urine Bilirubin Negative (Negative) 01/07/21 Urine Urobilinogen Negative (Negative) 01/07/21 Urine Leukocyte Esterase 3+ (Negative) H 01/07/21 Urine WBC (Auto) >30 /hpf (0-5) H 01/07/21 Urine RBC (Auto) 0-4 /hpf (0-4) 01/07/21 Urine Hyaline Casts (Auto) 1-5 /lpf (0-5) 01/07/21 Urine Epithelial Cells (Auto) 0-5 /lpf (0-5) 01/07/21 Urine Bacteria (Auto) Negative (Negative) 01/07/21 Blood Type A Negative 01/18/21 Antibody Screen NEGATIVE 01/18/21 Testing Electrocardiogram Date: 10/27/20 Sinus rhythm with sinus arrhythmia at 60 bpm. RBBB. LAFB. Bifascicular block. Septal infarct (cited on or before 01/10/2019 per bellstand attendant review) Subsequent DSE done 11/09/20. Chest X-Ray Date: 10/27/20 Findings: + NAD Echocardiogram Date: 02/04/20 LVEF 60 to 64%. Mildly increased concentric LV wall thickness. Grade 1 diastolic dysfunction. Mild moderately enlarged aortic root of 4.5 cm. Mildly enlarged proximal ascending thoracic aorta 4.3 cm. Mild AV sclerosis. Mild AR. Mild mitral annular calcification. Mild TR. Compared to last available study, there has been no interval change per report. Stress Test Date: 11/09/20 Type: DSE DSE negative for inducible ischemia. Frequent PACs noted with stress. Nonsustained SVT with stress. Occasional PVCs with stress. Ventricular couplets noted with stress. Borderline increased concentric LV wall thickness. LVEF 55 to 59%. Grade 1 diastolic dysfunction. Mild AV sclerosis. Mild AR. Mild mitral annular calcification. The aortic root is moderately enlarged, unchanged from study dated 02/04/2020. The proximal ascending thoracic aorta is mildly enlarged, unchanged from study dated 02/04/2020 per report. 126% MPHR. Other Testing Head/neck ultrasound (12/07/20): Indeterminate subcutaneous hypoechoic structure corresponding to the palpable lump. Not definitely a fluid collection. Equivocal extension or communication with the underlying bone/TMJ joint. Consider MRI depending on clinical suspicion. CT head (11/19/20): No acute abnormalities are identified by CT. Carotid duplex (08/03/20): Right carotid artery duplex examination indicates evidence of less than 50% stenosis of the internal carotid artery. Left carotid artery duplex examination indicates evidence of less than 50% stenosis of the internal carotid artery. The right vertebral artery demonstrates antegrade flow. The left vertebral artery demonstrates antegrade flow.
--- NOTE | 2021-02-25 16:54 | History & Physical Report ---
Date of Service February 25, 2021 Assessment & Plan (1) Rotator cuff tear arthropathy of right shoulder: We will proceed with a right reverse shoulder replacement. Postoperatively he will be bridged with Lovenox and placed back on his Coumadin. He will be kept overnight in the hospital for postoperative medical management. He plans to do home health upon discharge and we need the hospital to arrange. History of Present Illness Chief Complaint: Cuff arthropathy of the right shoulder. Primary Care Provider: Dana Aponte MD Raghavendra is a pleasant 80-year-old male who is been doing with chronic worsening right shoulder pain and weakness. 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 After failing extensive conservative treatment, he has elected to proceed with a right reverse shoulder arthroplasty.. Allergies Allergy/AdvReac Type Severity Reaction Status Date / Time Sulfa (Sulfonamide Allergy Unknown "Everyone Verified 01/15/21 16:27 Antibiotics) in family" Home Medications Medication Instructions Recorded Confirmed Type azelastine 137 mcg (0.1 %) nasal 2 spray INTRANASAL DAILY PRN 10/01/18 01/18/21 History spray aerosol cholecalciferol (vitamin D3) 125 5,000 unit PO QAM 10/01/18 01/18/21 History mcg (5,000 unit) tablet (Vitamin D3) digoxin 125 mcg (0.125 mg) tablet 125 mcg PO HS 10/01/18 01/18/21 History (Digox) fluticasone propionate 50 2 spray INTRANASAL DAILY PRN 10/01/18 01/18/21 History mcg/actuation nasal spray,suspension (Flonase Allergy Relief) furosemide 40 mg tablet (Lasix) 40 mg PO DAILY PRN 10/01/18 01/18/21 History krill 1,000 mg-omega-3 170 mg-dha 1 cap PO QAM 10/01/18 01/18/21 History 50 mg-epa 80 [id number] capsule (krill oil) magnesium oxide 400 mg PO QAM 10/01/18 01/18/21 History metoprolol tartrate 25 mg tablet 12.5 mg PO BID 10/01/18 01/18/21 History quinine sulfate 324 mg capsule 324 mg PO HS PRN 10/01/18 01/18/21 History (Qualaquin) warfarin 5 mg tablet (Jantoven) 5 - 7.5 mg PO QPM 10/01/18 01/18/21 History rosuvastatin 20 mg tablet 20 mg PO HS 12/09/20 01/18/21 History Past Med/Surg History Medical History Aortic root dilatation Moderately enlarged, unchanged compared to 02/04/2020 (per 11/09/20 DSE report) Basal cell carcinoma of nose BPH (benign prostatic hyperplasia) Carotid artery disease B/L ICA stenosis < 50% Deep vein thrombosis LLE DVT (2011) Dyslipidemia GERD (gastroesophageal reflux disease) Controlled Hearing deficit No aids Hemochromatosis Hereditary hemochromatosis, phlebotomy q6 months per GI (most recent 08/2020 per GI), (per PCP 12/2020, recent transferrin level WNL) Hyperlipidemia Hypertension Osteoarthritis Paroxysmal SVT (supraventricular tachycardia) Follows with Dr. Higgins Pulmonary embolism Post-op (2011) TIA (transient ischemic attack) TIA (2014/no evidence of CVA on MRI per PCP records) Surgical History H/O left knee surgery H/O nasal polypectomy History of back surgery x6 (including rods/screws) History of colonoscopy History of esophagogastroduodenoscopy (EGD) History of left knee surgery History of prostate surgery TURP (11/13/20; [facility] Grade view 1, glidescope 3, ETT 7.5 at [facility] History of tooth extraction History of total right hip replacement Hx of cholecystectomy Status post Mohs surgery for basal cell carcinoma Family History Brother Family hx colonic polyps Other No family history of adverse response to anesthesia Social History Smoking Status: Never smoker Second Hand Exposure: No; Hx Alcohol Use: No Hx Substance Use: No Preferred Language: Albanian Communication Ability: Effective Clutch Inspector Required: No Beliefs That Will Affect Care: None Current Living Situation: Spouse current occupational status: retired Feels Safe at Home: Yes Assistive Devices: Denture - Upper Review of Systems All systems reviewed & are unremarkable except as noted in HPI & below. Physical Exam On physical examination of the right shoulder, he has near full active range of motion. He has 3 out of 5 muscle strength with full can testing and 3 out of 5 motor strength with external rotation. He has a negative belly press test. He has pain over the glenohumeral joint line.. Constitutional WD/WN, vitals as above Eyes PERRL, conjunctivae normal, anicteric sclerae ENMT external ear and nose normal, oropharynx normal Neck trachea midline, no thyromegaly Respiratory normal respiratory effort Cardiovascular RRR, no murmur, no edema Gastrointestinal (Abdomen) normal bowel sounds, soft, nontender, no hepatosplenomegaly Psychiatric A+Ox3, euthymic affect Results & Data Results & Data Laboratory Results . Diagnostic Findings X-rays of the right shoulder do show some superior migration of the humeral head on the glenoid. There are some signs of arthritis as well.. PG Care Time/CCT Total # of Minutes Spent Total Time Spent with Patient: Total time spent is greater than 50% in coordination of care (as documented) at patient's floor/unit and/or counseling patient: Coding Level of Care Code None Diagnoses Rotator cuff tear arthropathy of right shoulder M75.101; M12.811
[~2021-02-26 10:33] MED LIST changes: -ACET-1311 PO; +ACETAMINOPHEN 500 MG TAB PO SCH; -ASPCH81X PO; -ASTN; -B-COTAB18 PO; +BUPIVACAINE 0.5 % 5 MG/1 ML PF 10ML VIAL ONE; -CHOL1TAB42 PO; +FAMOTIDINE 20 MG TAB PO SCH; -FLUT0.15 NAE; -FRS/40 PO; -HYDR-5688 PO; -KRIL1000 PO; -LNX125 PO; -LPR25 PO; +LR 15ML/HR IV SCH; +LR 60ML/HR IV SCH; -LVNIS30 SQ; -MAGN1CAP2 PO; -QUIN1CAP5 PO; +ROPIVACAINE 0.5% HCL/PF 150 MG, BUPIVACAINE 0.75% MPF 20 ML, EPINEPHrine 30MG/30ML (OR ... INSTIL SCH; -ROSU5TAB PO; -TAMS0.4C38 PO; +TRANEXAMIC ACID 1,000 MG **IV Intra-op IV SCH; +TRANEXAMIC ACID 1,000 MG **IV Pre-op IV SCH; -WARF5TAB90 PO; +ceFAZolin 2000MG 2,000 MG/15 ML SYR IV SCH; +dexAMETHasone 4 MG TAB PO SCH
[2021-02-26 11:30] LABS: Partial Thromboplastin Ratio 1.2; Partial Thromboplastin Time 30.6 Seconds (21.0-31.0); Prothrombin Time 10.5 Seconds (9.0-12.0)
--- NOTE | 2021-02-26 12:27 | History & Physical Bridge Note ---
Date of Service February 26, 2021 History & Physical Bridge Note I have examined the patient, reviewed the History & Physical and in the interval since the performance of the History & Physical I have noted the following changes of clinical significance: no changes noted
[2021-02-26] MEDS ORDERED: fentaNYL citrate 100 MCG/2 ML VIAL ONE (13:07)
[2021-02-26] MEDS ORDERED: MIDAZOLAM HCL 1 MG/ML 2ML VIAL ONE (13:07)
[2021-02-26] MEDS ORDERED: ORTHO JOINT ANESTHETIC ONE (13:14)
[2021-02-26] MEDS ORDERED: ATROPINE SULFATE 0.1 MG/ML 10ML SYR IV PRN (13:28)
[2021-02-26] MEDS ORDERED: ONDANSETRON INJ 2 MG/ML 2 ML VIAL IV PRN ×2 (13:28→16:25)
[2021-02-26] MEDS ORDERED: ePHEDrine sulfate 50 MG/ML AMP IV PRN (13:28)
[2021-02-26] MEDS ORDERED: fentaNYL citrate 100 MCG/2 ML VIAL IV PRN (13:28)
[2021-02-26] MEDS ORDERED: DEXAMETHASONE SOD INJ 4 MG/ML VIAL ONE (14:08)
[2021-02-26] MEDS ORDERED: ONDANSETRON INJ 2 MG/ML 2 ML VIAL ONE (14:08)
[2021-02-26] MEDS ORDERED: LIDOCAINE 2% 2 ML VIAL/AMP(20MG/ML) INFIL ONE (14:08)
[2021-02-26] MEDS ORDERED: PROPOFOL IV EMULSION 10 MG/ML 20 ML VIAL IV ONE (14:08)
[2021-02-26] MEDS ORDERED: ePHEDrine sulfate 50 MG/ML AMP ONE ×2 (14:11→14:42)
[2021-02-26] MEDS ORDERED: PHENYLEPHRINE HCL 10 MG/ML VIAL ONE (14:42)
--- NOTE | 2021-02-26 15:00 | Operative Report ---
PG Post Operative Report Pre & Post Diagnosis Operation Date: 02/26/21 13:00 Pre-Op Diagnosis: Cuff tear arthropathy of the right shoulder with tendinopathy of the long head of the biceps tendon Post-Op Diagnosis: Cuff tear arthropathy of the right shoulder with tendinopathy of the long head of the biceps tendon I identified the patient and participated in the time-out.: Yes Procedure Operation Date: 02/26/21 13:00 Actual Procedures p Right Reverse Total Shoulder Arthroplasty, Uncemented(Right) with open biceps tenodesis as a distinct and separate procedure (modifier 59)- Pato Paez DO Surgeon Pato Paez, Engineering Geologist Pato Veras PAC Estimated Blood Loss 300 Findings Consistent with Post-Op Diagnosis Specimens Right humeral head Complications none Disposition Disposition: Recovery Room Indications Raghavendra is a pleasant 80-year-old male who is been dealing with chronic increasing right shoulder pain and weakness. X-rays and clinical exam were diagnostic for cuff arthropathy of the right shoulder. After failing conservative treatment, he elected proceed with a right reverse shoulder arthroplasty. Description of Procedure A CPT code modifier 59: The long head of the biceps tendon was enlarged and inflamed consistent with tendinopathy. A tenodesis was opted. This was a separate and distinct portion of the procedure. For these reasons, a CPT code modifier 59 will be added to this case. Implants used: I used a [employer]omet Comprehensive reverse total shoulder arthroplasty system with a size 20 press fit micro humeral stem, a +3 offset humeral tray and a standard humeral bearing, a 25 mm small augment baseplate with a 6.5 mm central screw and superior and inferior locking screws, and a size 40 mm eccentric glenosphere. Raghavendra [facility] at [facility] for the above procedure. He was seen in the preoperative holding area and the operative extremity was identified and signed. He was given a preoperative antibiotic, TXA, and an interscalene nerve block. He was taken back to the operating room, laid on table in supine position, and put under general anesthesia. He was then put into the beachchair position. The shoulder was then prepped and draped in sterile fashion. A timeout was done and the patient and the operative extremity was properly identified. A deltopectoral approach was used. Dissection was taken down through the fascia and the deltoid was retracted laterally and the conjoined tendon was retracted medially. The anterior shoulder was exposed. The biceps groove was opened up and the biceps tendon was examined extensively. The biceps tendon demonstrated enlargement and inflammatory changes consistent with longstanding inflammation in the context of osteoarthritis and cuff arthropathy. The long head of the biceps tendon was then tenodesed to the upper border of the pectoralis major. This was a separate and distinct portion of the procedure. The subscapularis was then directly released off the lesser tuberosity with a peel technique. The inferior capsule was released and the humeral head was dislocated. A canal finding reamer was sent down the center of the humeral canal. Sequenti al reaming up to a size 20 reamer was done. Off that reamer, a proximal humeral resection guide was placed. The proximal humerus was resected at 135 of inclination and 25 of retroversion. Osteophytes were then removed and the glenoid was exposed. Time was spent doing a complete capsular and labral release. The glenoid guide was then placed in the inferior aspect of the glenoid. A 3.2 mm Steinmann pin was then placed into the glenoid vault at 10 of inclination. The glenoid baseplate was then reamed. The final size 25 mm small augment baseplate was then impacted in the place. A 6.5 mm central screw was then placed followed by superior and inferior locking screws. A 40 mm eccentric glenosphere was then impacted into place. Surrounding soft tissues were then injected with 100 cc an orthopedic pain control cocktail. The proximal humerus was then exposed. Sequential broaching of the humerus up to a size 20 broach was done. Off that broach a +3 offset humeral tray was trialed. The shoulder was then reduced, brought through a full range of motion, and felt to be stable. The shoulder was then dislocated and the broach was removed. The final size 20 micro press-fit humeral stem was then impacted into place. A standard humeral bearing was then snapped onto a +3 offset humeral tray. The humeral tray was then impacted onto the humeral stem. The shoulder was once again reduced, brought through a full range of motion, and felt to be stable. The subscapularis was then tenodesed back to the lesser tuberosity with transosseous FiberWire sutures and side to side sutures with the arm in 45 of external rotation. A dilute betadyne lavage was then done for 3 minutes. The joint was then irrigated with normal saline solution. Hemostasis was obtained. The interval was closed with 2-0 Vicryl suture. The skin was then closed with 2-0 Vicryl and jersey. A Silverlon dressing was placed and the arm was rested in a regular arm sling. He was then extubated and transferred to a hospital bed. He taken to the postanesthesia care unit in stable condition. He tolerated the procedure well. Pato Veras PA-C, was present for the entire procedure. He was critical for patient positioning, prepping, draping, retraction exposure, wound closure and application of sterile dressing. I attest to the content of the Intraoperative Record and any orders documented therein. Any exceptions are noted below.
--- NOTE | 2021-02-26 15:44 | XRay Report ---
XR shoulder RT min 2V routine CLINICAL HISTORY: Post shoulder surgery COMPARISON: Right shoulder radiographs September 02, 2019. FINDINGS: Alignment of the reverse total right shoulder arthroplasty is anatomic. There is no peripr osthetic fracture. There is no unexpected radiopaque foreign body. There are skin jersey. IMPRESSION: Expected findings following reverse total right shoulder arthroplasty. ACT 112: Negative or not required by law. Electronically signed by: Reagan Sloan M.D. 02/26/2021 3:43 PM
--- NOTE | 2021-02-26 15:53 | Anesthesiology Progress Note ---
Date of Service February 26, 2021 Anesthesia Post Procedure Vital Signs Vital Signs: Temp Pulse Pulse Resp BP Pulse Ox 02/26/21 15:50 75 14 130/61 97 02/26/21 15:40 72 12 133/63 98 02/26/21 15:30 75 13 136/67 99 02/26/21 15:22 36.2 C L 74 16 149/67 H 100 02/26/21 11:32 36.6 C 60 20 160/83 H 99 Pain Intensity Right Shoulder: Pain Intensity: 1 Transfer of Care Handoff Completed per policy Notes Mental Status: alert / awake / arousable Patient Amnestic to Procedure: Yes Nausea / Vomiting: adequately controlled Pain: adequately controlled Airway Patency, RR, SpO2: stable & adequate BP & HR: stable & adequate Hydration State: stable & adequate Anesthetic Complications: no major complications apparent and Pt Satisfied with anesthetic care Notes: The patient is awake and comfortable. His vital signs are stable.
[2021-02-26] MEDS ORDERED: bisacodyL 10 MG SUPP PR PRN (16:25)
[2021-02-26] MEDS ORDERED: NALOXONE HCL 0.4 MG/1 ML VIAL/CARP IV PRN (16:25)
[2021-02-26] MEDS ORDERED: FLUTICASONE PROPIONATE NA SPR 16 GM BTL NAE PRN (16:25)
[2021-02-26] MEDS ORDERED: FUROSEMIDE 40 MG TAB PO PRN (16:25)
[2021-02-26] MEDS ORDERED: METOCLOPRAMIDE HCL INJ 5 MG/ML 2 ML VIAL IV PRN (16:25)
[2021-02-26] MEDS ORDERED: HYDROmorphone INJ 0.5 MG/0.5 ML SYR IV PRN (16:25)
[2021-02-26] MEDS ORDERED: MAGNESIUM HYDROXIDE SUSP 30 ML UDC PO PRN (16:25)
[2021-02-26] MEDS ORDERED: oxyCODONE HCL IR 5 MG TAB (IMMEDIATE RELEASE) PO PRN (16:25)
[2021-02-26] MEDS: SODIUM CHLORIDE 0.9% 1000ML 1,000 ML IV SCH (17:01)
[2021-02-26] MEDS: KETOROLAC TROMETHAMINE 15 MG/ML VIAL IV SCH ×2 (18:04→20:36)
[2021-02-26] MEDS: WARFARIN SOD 7.5 MG TAB PO SCH (20:33)
[2021-02-26] MEDS: ceFAZolin 2000MG 2,000 MG/15 ML SYR IV SCH (20:33)
[2021-02-26] MEDS: ACETAMINOPHEN 500 MG TAB PO SCH (20:35)
[2021-02-26] MEDS: DOCUSATE SODIUM 100 MG CAP PO SCH (20:35)
[2021-02-26] MEDS: METOPROLOL TARTRATE 25 MG TAB PO SCH (20:35)
[2021-02-26] MEDS ORDERED: DIGOXIN 0.125 MG TAB PO SCH (21:00)
[2021-02-26] MEDS ORDERED: ROSUVASTATIN CALCIUM 20 MG TAB PO SCH (21:00)
[2021-02-26] MEDS ORDERED: SENNA 8.6 MG TAB PO SCH (21:00)
[2021-02-26] MEDS: [UNRECOGNIZED DRUG - REMARK] SCH (21:45)
[2021-02-27] MEDS: SODIUM CHLORIDE 0.9% 1000ML 1,000 ML IV SCH (02:37)
[2021-02-27] MEDS: ceFAZolin 2000MG 2,000 MG/15 ML SYR IV SCH (05:25)
[2021-02-27] MEDS: KETOROLAC TROMETHAMINE 15 MG/ML VIAL IV SCH ×3 (05:25→16:02)
[2021-02-27] MEDS: ACETAMINOPHEN 500 MG TAB PO SCH ×2 (05:26→15:00)
[2021-02-27] MEDS ORDERED: dexAMETHasone 4 MG TAB PO SCH (08:00)
--- NOTE | 2021-02-27 08:03 | Orthopedic Progress Note ---
Date of Service February 27, 2021 Assessment & Plan (1) Status post reverse total replacement of right shoulder: Overall is doing fairly well. Is not having much pain in the right shoulder. He will be seen by physical therapy today for ambulation and range of motion exercises. He can be discharged home later today. He will follow-up with orthopedics in 2 weeks. I did talk to the nursing staff to make sure that he understands his Coumadin and bridging Lovenox orders. Roxana Mabry was seen and examined at bedside this morning. Overall is doing very well. Is not in any pain in the right shoulder. He was able to get some sleep last night. He has no complaints.. Review of Systems All systems reviewed & are unremarkable except as noted in HPI & below. Physical Exam On physical examination of the right shoulder, the dressing is clean and dry. He is wearing his sling as instructed. He does have some active motion of his fingers but the majority of the nerve block is still intact.. Results & Data Results & Data Laboratory Results . Diagnostic Findings Postoperative x-rays of the right shoulder show the prosthesis to be in anatomic alignment without any evidence of fracture, dislocation, or loosening.. PG Care Time/CCT Total # of Minutes Spent Total Time Spent with Patient: Total time spent is greater than 50% in coordination of care (as documented) at patient's floor/unit and/or counseling patient: Coding Level of Care Code 63843 Post Operative Follow-Up Diagnoses Status post reverse total replacement of right shoulder Z96.611
--- NOTE | 2021-02-27 08:04 | Discharge Summary ---
Date of Service February 27, 2021 Admission HPI (Per Admitting) Raghavendra is a pleasant 80-year-old male who is been doing with chronic worsening right shoulder pain and weakness. 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 After failing extensive conservative treatment, he has elected to proceed with a right reverse shoulder arthroplasty.. Admission Exam (Per Admitting) On physical examination of the right shoulder, he has near full active range of motion. He has 3 out of 5 muscle strength with full can testing and 3 out of 5 motor strength with external rotation. He has a negative belly press test. He has pain over the glenohumeral joint line.. Principal Diagnosis Same as "Discharge Diagnosis" noted below under Discharge Instructions. Discharge Exam On physical examination of the right shoulder, the dressing is clean and dry. He is wearing his sling as instructed. He does have some active motion of his fingers but the majority of the nerve block is still intact.. Discharge Data Procedures Performed Operation Date: 02/26/21 13:00 Actual Procedures p Right Reverse Total Shoulder Arthroplasty, Uncemented(Right) - Pato Paez DO Ordered Studies 02/26/21 05:00 US - OR guided needle placemen Routine Hospital Course (1) Status post reverse total replacement of right shoulder: On February 26, 2021 Raghavendra arrived at [facility] and underwent a right reverse shoulder replacement without complication. He had a general anesthetic and a right interscalene nerve block. Postoperatively he was placed in a sling and transferred to the general orthopedic floors. His hospital course was uneventful. On postop day #1 his vital signs were stable and his pain was well controlled. He was able to participate well with physical therapy doing ambulation and range of motion exercises. He was then discharged home. He will follow-up with orthopedics in 2 weeks. PG Care Time/CCT Total # of Minutes Spent Total Time Spent with Patient: Total time spent is greater than 50% in coordination of care (as documented) at patient's floor/unit and/or counseling patient: Discharge Plan Discharge Items Patient Disposition: Home - Home Health Services Reason For Visit: Degenerative Joint Disease Shoulder Discharge Diagnosis: Right reverse shoulder replacement Activity: As commented below Non-emergency contact: Surgeon Call non-emergency contact if: your wound has increased redness and your wound has increased drainage Follow-up/Referrals: Dana Aponte MD [Primary Care Provider] - Diet: Regular Addtl Attending Provider Instructions: Activity and Therapy Recommendations: * If you are using [facility] then therapy will be provided at your home until they feel you have accomplished all of your goals. * If you are using [facility] then Physical Therapy will be provided until they feel you are ready to start Outpatient Physical Therapy. * If you are not using home therapy then Outpatient Physical Therapy should start about 3-5 days from your day of surgery. Therapy will last about 8-12 weeks * Wear your sling for 3 weeks, unless otherwise instructed. You may remove your sling to shower and to dress, but otherwise, you should be in your sling at all times, including while sleeping * The shoulder replacement is very stable and you can use your hand while in the sling * You were shown a series of exercises in the hospital. Do these exercises daily including the exercises you were shown in physical therapy. Medications: * Narcotic You will likely be sent home from the hospital with a prescription for the narcotic pain medication that worked best throughout your stay. * Other medications may be prescribed for specific circumstances. If you have any questions, please call the office at . * Resume previous home medications unless otherwise instructed Dressing Care: Leave the Silverlon dressing in place for 7 days. After 7 days you may remove the dressing. If the incision is not draining then you may leave the jersey open to air. If there is a little bit of drainage or if the jersey are getting stuck on your clothing then cover the incision with a dry dressing. The jersey will be removed at your 2 week follow-up appointment. Showering: You may shower with the Silverlon dressing in place. Do not let the shower spray hit the dressing directly. Pat the Silverlon dressing dry. If the dressing becomes wet underneath, then simply remove the dressing. Keep the incision dry until you are 7 days out from the day of surgery. After 7 days you may remove the Silverlon dressing and shower with the jersey exposed. Let soapy water run over the jersey and pat them dry. Do not scrub or soak the incision. Things To Watch For: * Drainage from the incision site that occurs more than one week after your surgery. * Increased redness at the incision site. * Fever above 102 degrees Fahrenheit. * Unusual chest pain or shortness of breath. * Call [facility] at with any of the above problems Follow-Up Visit: Follow-up with Dr. Paez's PA ([place]) 2-3 weeks after your day of surgery. He will remove your jersey and answer any questions. If you have any additional questions or concerns, Dr Paez is usually in the office at the same time and will be available An appointment was probably scheduled when you signed-up for surgery in the office. If you have any questions call More detailed instructions as well as Frequently Asked Questions were provided in a folder by our office when you signed-up for surgery. Please review these instructions when you get home. If you have any further questions or concerns, please feel free to call the office at [phone] Pending Studies at Discharge: No Stand-Alone Forms: My [facility] Medications and DC Order Prescriptions: New oxycodone 5 mg Tablet 5 mg PO Q4H PRN (Reason: pain) Qty: 30 RF: 0 Continued furosemide [Lasix] 40 mg Tablet 40 mg PO DAILY PRN (Reason: Edema) RF: 0 warfarin [Jantoven] 5 mg Tablet 5 - 7.5 mg PO QPM RF: 0 digoxin [Digox] 125 mcg Tablet 125 mcg PO HS RF: 0 azelastine 137 mcg (0.1 %) Aerosol,[place] 2 spray INTRANASAL DAILY PRN (Reason: Nasal Congestion) RF: 0 fluticasone propionate [Flonase Allergy Relief] 50 mcg/actuation [place],Suspension 2 spray INTRANASAL DAILY PRN (Reason: Allergy Symptoms) RF: 0 metoprolol tartrate 25 mg Tablet 12.5 mg PO BID RF: 0 quinine sulfate [Qualaquin] 324 mg Capsule 324 mg PO HS PRN (Reason: leg cramping) RF: 0 cholecalciferol (vitamin D3) [Vitamin D3] 5,000 unit Tablet 5,000 unit PO QAM RF: 0 magnesium oxide 400 mg Capsule 400 mg PO QAM RF: 0 [id number] [krill oil] 1,865-737-77-80 mg Capsule 1 cap PO QAM RF: 0 enoxaparin [Lovenox] 300 mg/3 mL Solution RF: 0 rosuvastatin 20 mg tablet 20 mg PO HS RF: 0 Discharge Orders: Discharge Order (Routine); Ordered 02/27/21 Ordered By: Pato Paez Admission Data Admit Date/Time: 02/26/21 15:20 Attending Provider: Pato Paez Admit Provider: Pato Paez Primary Care Provider: Dana Aponte
[2021-02-27] MEDS: METOPROLOL TARTRATE 25 MG TAB PO SCH (08:33)
[2021-02-27] MEDS: [UNRECOGNIZED DRUG - REMARK] SCH ×2 (08:37→15:58)
[2021-02-27] MEDS: DOCUSATE SODIUM 100 MG CAP PO SCH (08:37)
[2021-02-27] MEDS ORDERED: MAGNESIUM OXIDE 400 MG TAB PO SCH (09:00)
[2021-02-27] MEDS ORDERED: MULTIVITAMIN TAB PO SCH (09:00)
[2021-02-27] MEDS ORDERED: TAMSULOSIN HCL 0.4 MG CAP PO ONE (10:11)
[2021-02-27] MEDS ORDERED: FINASTERIDE 5 MG TAB PO SCH (10:15)
[2021-02-27] MEDS: WARFARIN SOD 7.5 MG TAB PO SCH (16:00)
== END 2021-02-27 17:28 | disposition home health service (06) ==
LOC: 3N 10:33 → ASU 10:33
DX: M75.101 Unspecified rotator cuff tear or rupture of right shoulder, not specified as traumatic; Z79.899 Other long term (current) drug therapy; M12.811 Other specific arthropathies, not elsewhere classified, right shoulder; Z79.01 Long term (current) use of anticoagulants; N40.0 Benign prostatic hyperplasia without lower urinary tract symptoms; Z86.718 Personal history of other venous thrombosis and embolism; Z96.641 Presence of right artificial hip joint; Z86.73 Personal history of transient ischemic attack (TIA), and cerebral infarction without residual deficits; Z86.711 Personal history of pulmonary embolism; I10 Essential (primary) hypertension; I47.1 Supraventricular tachycardia; K21.9 Gastro-esophageal reflux disease without esophagitis; E78.5 Hyperlipidemia, unspecified; Z88.2 Allergy status to sulfonamides

== ENCOUNTER 2023-03-14 16:21 | Inpatient (IN) ==
[2023-03-14] MEDS ORDERED: ONDANSETRON INJ 2 MG/ML 2 ML VIAL IV STA (16:43)
[2023-03-14] MEDS ORDERED: SODIUM CHLORIDE 0.9% 500 ML IV STA (16:43)
--- NOTE | 2023-03-14 16:43 | ED Triage Note ---
Date of Service March 14, 2023 History of Present Illness This patient was briefly evaluated while in triage. An abbreviated physical exam was performed. This patient is a 82-year-old Male who presents to the ED for evaluation of feeling unwell. Had flu shot on Monday, Monday night started feeling unwell with dizziness and vomiting. Vomiting is better, but still having nausea. "I just feel really sick all over." No syncope or falls. Having fever and chills. Physical Exam CONSTITUTIONAL: No acute distress. Well appearing. RESPIRATORY: Clear to auscultation bilaterally. Equal expansion bilaterally. CARDIOVASCULAR: Regular rate and rhythm. GASTROINTESTINAL: Soft, nontender. NEUROLOGIC: Alert and oriented X 4 with normal affect. Initial orders for labs and / or imaging were placed and patient was placed in t he waiting area until a bed is available. Please see further documentation for the full ED course.
[2023-03-14 17:52] LABS: Basophils # (auto) 0.03 K/uL (0.00-0.20); Basophils % (auto) 0.7 %; Eosinophils # (auto) 0.24 K/uL (0.00-0.50); Eosinophils % (auto) 5.6 %; Hemoglobin 14.6 g/dl (14.0-18.0); Immature Granulocytes # (auto) 0.01 K/uL (0.01-0.20); Immature Granulocytes % (auto) 0.2 %; Lymphocytes # (auto) 0.54 K/uL (1.20-3.40); Lymphocytes % (auto) 12.6 %; Mean Corpuscular Hgb Conc 34.8 g/dL (32.0-36.0); Mean Corpuscular Volume 89.2 fL (80.0-100.0); Mean Platelet Volume 9.7 fL (9.4-12.4); Monocytes # (auto) 0.61 K/uL (0.11-0.59); Monocytes % (auto) 14.2 %; Neutrophils # (auto) 2.86 K/uL (1.40-6.50); Neutrophils % (auto) 66.7 %; Platelet Count 140 K/uL (130-400); RDW Coefficient of Variation 14.6 % (11.5-14.5); RDW Standard Deviation 47.5 fL (36.4-46.3); Red Blood Count 4.71 M/uL (4.70-6.10); White Blood Count 4.29 K/ul (4.8-10.8)
--- NOTE | 2023-03-14 17:55 | XRay Report ---
SINGLE VIEW CHEST CLINICAL HISTORY: Fever FINDINGS: 2 AP, portable, upright chest radiographs are compared to study dated 05/06/2017 and correl ated with chest CT dated 02/16/2017. The examination is degraded by portable technique and patient rot ation. The heart is enlarged noting atherosclerotic calcification of the thoracic aorta. The pulmona ry vasculature is noncongested. Chronic interstitial thickening is similar to previous. There is biba silar scarring/atelectasis. Question streaky left suprahilar opacities. No large pleural effusion is identified. There are scattered calcified granulomas. No pneumothorax is seen. The skeletal structure s are osteopenic. The bony thorax is grossly intact. A right shoulder arthroplasty is in place. Fusio n hardware is partially visualized in the lumbar spine. Cholecystectomy clips are seen in the right u pper quadrant. IMPRESSION: 1. Mild cardiomegaly without radiographic evidence of congestive failure. 2. Question streaky airspace opacities in the left suprahilar region. Correlate clinically for eviden ce of developing pneumonia. Radiographic follow-up to resolution is recommended. ACT 112: Negative or not required by law. Electronically signed by: Raymundo Hansen M.D. 03/14/2023 5:54 PM
[2023-03-14 18:07] LABS: Alanine Aminotransferase 14 U/L (7-52); Albumin Globulin Ratio 1.8 (0.9-2); Albumin Level 4.1 gm/dl (3.4-5.0); Alkaline Phosphatase 58 U/L (34-104); Anion Gap 4 (3-11); BUN Creatinine Ratio 23.2 (10-20); Bilirubin,Total 0.5 mg/dl (0.2-1.0); Blood Urea Nitrogen 22 mg/dl (6-23); Calcium 9.2 mg/dl (8.6-10.3); Carbon Dioxide 29 mmol/L (21-32); Chloride 103 mmol/L (98-107); Est GFR (African American) 86.1 ml/min; Est GFR (Non-African American) 74.2 ml/min; Globulin 2.3 gm/dl (2.5-4.0); Glucose 90 mg/dl (70-99(Fasting)); Sodium 136 mmol/L (136-145); Total Protein 6.4 gm/dl (6.0-8.3)
[2023-03-14 18:10] LABS: Troponin I High Sensitivity 5.6 pg/ml (0-20)
--- NOTE | 2023-03-14 18:17 | Emergency Department Note ---
Impression & Plan Dizziness, Ambulatory dysfunction ED Provider Note HISTORY OF PRESENT ILLNESS: Patient is an 82-year-old male presenting with dizziness. Patient reports that at 1:30 AM yesterday he woke up to go to the bathroom and had an episode in which the room was spinning and he felt very nauseous. He reports episode lasted for few minutes at a time. He states that the episodes continued intermittently throughout the day and then have persisted today. Reports that he gets dizziness when his eyes moved to the left. Describes the dizziness as room spinning. Denies any recent head injury or chiropractic manipulation of his neck. He reports he gets nauseous and very weak with the episodes. He states he had his flu shot administered 4 days ago. Denies any fevers. Denies any chest pain or shortness of breath with the episodes. He is on Coumadin for history of blood clots. Denies any recent fevers. ROS: as above PHYSICAL EXAM: Constitutional: Patient appears in no acute distress. HENT: Head: Normocephalic and atraumatic. Eyes: EOMI, PERRL Mouth/Throat: Mucous membranes moist. Neck: Trachea midline. Neck supple. Cardiovascular: RRR, No murmurs, rubs or gallops. Intact distal pulses. Pulmonary/Chest: No respiratory distress. Breath sounds clear and equal bilaterally. No wheezes or rales. Abdominal: Abdomen soft, no tenderness, rebound or guarding. Musculoskeletal: No edema, tenderness or deformity noted. Skin: Warm and dry. No rash, erythema, pallor or cyanosis Psychiatric: Appropriate mood and affect for situation. Neurological: Alert and keenly responsive. CN II-XII grossly intact, moving all extremities equally and fully. MDM: - Vitals signs showed hypertension. - History obtained via patient. Patient presents with dizziness. Patient reports that at 1:30 AM yesterday he woke to go to the bathroom and had an episode of dizziness in which the room was spinning and he felt nauseous. Reports episode lasted for few minutes. He states that the episodes have been coming back intermittently throughout the day yesterday and today. Denies any recent falls or head injuries. Denies any recent chiropractic manipulation of his neck. Denies any recent fevers. Denies any chest pain or shortness of breath. - Chronic conditions affecting care: TIA; PE; HTN; HLD; hemochromatosis - Differential diagnoses include, but are not limited to: ACS; peripheral vertigo; intracranial hemorrhage; CVA; electrolyte abnormality - Order placed for continuous cardiac monitoring. At this time, monitor showed rate of 71 bpm with normal sinus rhythm, per my interpretation. - External medical records reviewed. - EKG reviewed by myself showed normal sinus rhythm. Rate 61 bpm. QTc 424. No acute ischemic changes. Noted to have a bifascular block. - Laboratory workup interpreted by myself showed slight leukopenia (WBC 4.29); normal lactate; stable electrolytes; normal troponin; normal procalcitonin - CT head wo contrast negative for acute intracranial pathology - CXR negative for pneumonia, per my interpretation - Biofire negative - UA negative - Patient attempted to ambulate in ER and was very weak. He required assistance from 2 people. He then complained of further dizziness. 0.5 mg IV ativan ordered. - Discussion was had with social sciences lecturer about patient's case and need for admission - Hospitalist consulted for admission - [facility] ASSESSMENT AND PLAN: Diagnosis: dizziness; ambulatory dysfunction Plan: admit Past Med/Surg History Medical History (Updated 03/14/23 @ 21:55 by Alyson Gaitan MD) Aortic root dilatation Moderately enlarged, unchanged compared to 02/04/2020 (per 11/09/20 DSE report) Basal cell carcinoma of nose hx Carotid artery disease B/L ICA stenosis < 50% Deep vein thrombosis LLE DVT (2011); f/u coag clinic [facility] Dyslipidemia GERD (gastroesophageal reflux disease) Controlled Hearing deficit No aids Hemochromatosis Hereditary hemochromatosis, phlebotomy q6 months per GI (most recent 08/2020 per GI), (per PCP 12/2020, recent transferrin level WNL) History of anesthesia reaction when I had sx in [place] "I had hallucinations and had to see the eye doctor following because I was seeing crazy things." Hyperlipidemia Hypertension Osteoarthritis Paroxysmal SVT (supraventricular tachycardia) Follows with [facility] Pulmonary embolism Post-op (2011) TIA (transient ischemic attack) TIA (2014/no evidence of CVA on MRI per PCP records) Surgical History H/O left knee surgery H/O nasal polypectomy History of back surgery x6 (including rods/screws) History of colonoscopy History of esophagogastroduodenoscopy (EGD) History of prostate surgery TURP (11/13/20; [facility]): Grade view 1, glidescope 3, ETT 7.5 at [facility] History of reverse total replacement of right shoulder joint History of right cataract surgery History of tooth extraction History of total right hip replacement Hx of basal cell carcinoma excision Hx of cholecystectomy Status post Mohs surgery for basal cell carcinoma Family History Brother Family hx colonic polyps Other No family history of adverse response to anesthesia Social History Smoking Status: Never smoker Second Hand Exposure: No; Do You Dip or Chew Tobacco: No; Hx Alcohol Use: No Hx Substance Use: No Preferred Language: Irish Communication Ability: Effective Harp Regulator Required: No Beliefs That Will Affect Care: None Current Living Situation: Spouse current occupational status: retired Feels Safe at Home: Yes Assistive Devices: Denture - Upper and Nebulizer Allergies Allergies Allergy/AdvReac Type Severity Reaction Status Date / Time vancomycin Allergy Mild red, itchy Verified 03/01/23 10:04 Sulfa (Sulfonamide Allergy Unknown "Everyone Verified 03/01/23 10:04 Antibiotics) in family" Home Meds Home Medications Medication Instructions Recorded Confirmed azelastine 137 mcg (0.1 %) nasal 2 spray intranasal UD PRN Nasal 10/01/1803/14 spray aerosol Congestion cholecalciferol (vitamin D3) 125 5,000 unit PO QAM 10/01/18 03/14/23 mcg (5,000 unit) tablet (Vitamin D3) digoxin 125 mcg (0.125 mg) tablet 125 mcg PO HS 10/01/18 03/14/23 (Digox) fluticasone propionate 50 2 spray intranasal QAM PRN 10/01/18 03/14/23 mcg/actuation nasal Congestion spray,suspension (Flonase Allergy Relief) furosemide 40 mg tablet (Lasix) 40 mg PO QAM PRN Edema 10/01/18 03/14/23 krill 1,000 mg-omega-3 170 mg-dha 1 cap PO QAM 10/01/18 03/14/23 50 mg-epa 80 cx-pnanvv-sacea capsule (krill oil) magnesium oxide 400 mg PO QAM 10/01/18 03/14/23 metoprolol tartrate 25 mg tablet 12.5 mg PO BID 10/01/18 03/14/23 quinine sulfate 324 mg capsule 324 mg PO HS PRN leg cramping 10/01/18 03/14/23 (Qualaquin) warfarin 5 mg tablet (Jantoven) 5 - 7.5 mg PO UD 10/01/18 03/14/23 acetaminophen 500 mg tablet 500 mg PO Q6H PRN Pain 01/21/22 03/14/23 albuterol 90 mcg/actuation aerosol 90 mcg inhalation Q6H PRN 01/21/22 03/14/23 inhaler shortness of breath, wheezing baclofen 10 mg tablet 10 mg PO BID PRN muscle spasms 01/21/22 03/14/23 cyanocobalamin (vitamin B-12) 5,000 mcg sublingual QAM 01/21/22 03/14/23 5,000 mcg sublingual tablet (Vitamin B-12) folic acid 1 mg tablet 1 mg PO QAM 01/21/22 03/14/23 Zetia See Rx Instructions .Route .COMPLEX 03/14/23 03/14/23 Results & Data (ED) Vital Signs Vital Signs - 24 hr 03/14/23 16:41 03/14/23 19:04 03/14/23 19:07 Temperature 36.4 C L Temperature Source Temporal Artery Scan Pulse Rate - Lying Pulse Rate - Sitting Pulse Rate - Standing Pulse Rate 67 63 Pulse Rate [Apical] 72 Pulse Rate from SpO2 Sensor Pulse Rhythm [Apical] Regular Pulse Strength [Apical] Normal Respiratory Rate 18 16 Respiratory Effort / Characteristics Non-Labored Non-Labored Respiratory Depth Normal Normal Respiratory Pattern Regular Blood Pressure - Lying Blood Pressure - Sitting Blood Pressure- Standing Blood Pressure 150/79 H Blood Pressure [Right Arm] 153/87 H Blood Pressure Mean 102 Blood Pressure Mean [Right Arm] 109 Pulse Oximetry 99 98 Oxygen Delivery Method Room Air Room Air Sepsis Recent Fever Within 48 Hours No Sepsis New/Unexplained Change in Mental Status No Sepsis Action Taken by Nursing No Action Required 03/14/23 19:06 03/14/23 19:30 03/14/23 20:16 Temperature Temperature Source Pulse Rate - Lying Pulse Rate - Sitting Pulse Rate - Standing Pulse Rate 64 66 71 Pulse Rate [Apical] Pulse Rate from SpO2 Sensor 62 67 72 Pulse Rhythm [Apical] Pulse Strength [Apical] Respiratory Rate 17 20 19 Respiratory Effort / Characteristics Respiratory Depth Respiratory Pattern Blood Pressure - Lying Blood Pressure - Sitting Blood Pressure- Standing Blood Pressure 150/77 H Blood Pressure [Right Arm] Blood Pressure Mean 101 Blood Pressure Mean [Right Arm] Pulse Oximetry 100 100 97 Oxygen Delivery Method Room Air Sepsis Recent Fever Within 48 Hours Sepsis New/Unexplained Change in Mental Status Sepsis Action Taken by Nursing 03/14/23 20:30 03/14/23 21:00 03/14/23 21:11 Temperature Temperature Source Pulse Rate - Lying 71 Pulse Rate - Sitting 75 Pulse Rate - Standing 81 Pulse Rate 59 L 59 L Pulse Rate [Apical] Pulse Rate from SpO2 Sensor 60 64 Pulse Rhythm [Apical] Pulse Strength [Apical] Respiratory Rate 16 21 Respiratory Effort / Characteristics Respiratory Depth Respiratory Pattern Blood Pressure - Lying 155/80 H Blood Pressure - Sitting 159/77 H Blood Pressure- Standing 169/101 H Blood Pressure 158/87 H 152/96 H Blood Pressure [Right Arm] Blood Pressure Mean 110 114 Blood Pressure Mean [Right Arm] Pulse Oximetry 98 98 Oxygen Delivery Method Room Air Sepsis Recent Fever Within 48 Hours Sepsis New/Unexplained Change in Mental Status Sepsis Action Taken by Nursing 03/14/23 21:00 Temperature Temperature Source Pulse Rate - Lying Pulse Rate - Sitting Pulse Rate - Standing Pulse Rate Pulse Rate [Apical] 70 Pulse Rate from SpO2 Sensor Pulse Rhythm [Apical] Irregular Pulse Strength [Apical] Respiratory Rate Respiratory Effort / Characteristics Non-Labored Respiratory Depth Normal Respiratory Pattern Regular Blood Pressure - Lying Blood Pressure - Sitting Blood Pressure- Standing Blood Pressure Blood Pressure [Right Arm] Blood Pressure Mean Blood Pressure Mean [Right Arm] Pulse Oximetry Oxygen Delivery Method Room Air Sepsis Recent Fever Within 48 Hours Sepsis New/Unexplained Change in Mental Status Sepsis Action Taken by Nursing Laboratory Data 03/14/23 17:25 03/14/23 17:25 Lab Results 03/14/23 03/14/23 03/14/23 Range/Units 17:25 17:25 17:25 WBC 4.29 L (4.8-10.8) K/ul RBC 4.71 (4.70-6.10) M/uL Hgb 14.6 (14.0-18.0) g/dl Hct 42.0 (42.0-52.0) % MCV 89.2 (80.0-100.0) fL MCH 31.0 (25.0-34.0) pg MCHC 34.8 (32.0-36.0) g/dL RDW Std Deviation 47.5 H (36.4-46.3) fL RDW Coeff of Alex 14.6 H (11.5-14.5) % Plt Count 140 (130-400) K/uL MPV 9.7 (9.4-12.4) fL Immature Gran % (Auto) 0.2 % Neut % (Auto) 66.7 % Lymph % (Auto) 12.6 % [place] % (Auto) 14.2 % Eos % (Auto) 5.6 % Baso % (Auto) 0.7 % Neut # (Auto) 2.86 (1.40-6.50) K/uL Lymph # (Auto) 0.54 L (1.20-3.40) K/uL [place] # (Auto) 0.61 H (0.11-0.59) K/uL Eos # (Auto) 0.24 (0.00-0.50) K/uL Baso # (Auto) 0.03 (0.00-0.20) K/uL Immature Gran # (Auto) 0.01 (0.01-0.20) K/uL PT (9.0-12.0) Seconds INR (0.9-1.1) Sodium 136 (136-145) mmol/L Potassium TNP Chloride 103 (98-107) mmol/L Carbon Dioxide 29 (21-32) mmol/L Anion Gap 4 (3-11) BUN 22 (6-23) mg/dl Creatinine 0.95 (0.6-1.4) mg/dl Est Cr Clr Drug Dosing Not Reportable Est GFR ( Amer) 86.1 ml/min Est GFR (Non-Af Amer) 74.2 ml/min BUN/Creatinine Ratio 23.2 H (10-20) Glucose 90 (70-99(Fasting)) mg/dl Lactate (0.4-2.0) mmol/L Calcium 9.2 (8.6-10.3) mg/dl Total Bilirubin 0.5 (0.2-1.0) mg/dl AST TNP ALT 14 (7-52) U/L Alkaline Phosphatase 58 (34-104) U/L Troponin I High Sens 5.6 (0-20) pg/ml Total Protein 6.4 (6.0-8.3) gm/dl Albumin 4.1 (3.4-5.0) gm/dl Globulin 2.3 L (2.5-4.0) gm/dl Albumin/Globulin Ratio 1.8 (0.9-2) Procalcitonin < 0.05 (0-0.5) ng/ml Urine Color Urine Appearance (Clear) Urine pH (4.5-7.5) Ur Specific [place] (1.000-1.030) Urine Protein (Negative) Urine Glucose (UA) (Negative) Urine Ketones (Negative) Urine Blood (Negative) Urine Nitrite (Negative) Urine Bilirubin (Negative) Urine Urobilinogen (Negative) Ur Leukocyte Esterase (Negative) Adenovirus (PCR) (NotDetected) B. pertussis DNA (PCR) (NotDetected) B.parapertussis DNA PCR (NotDetected) C. pneumoniae DNA (PCR) (NotDetected) Coronavirus OC43 (PCR) (NotDetected) Coronavirus HKU1 (PCR) (NotDetected) Coronavirus 229E (PCR) (NotDetected) SARS-CoV-2 (PCR) (NotDetected) Coronavirus NL63 (PCR) (NotDetected) Human Metapneumovir PCR (NotDetected) Influenza Type A (PCR) (NotDetected) Influenza Type B (PCR) (NotDetected) M. pneumoniae (PCR) (NotDetected) Parainfluenza 1 (PCR) (NotDetected) Parainfluenza 2 (PCR) (NotDetected) Parainfluenza 3 (PCR) (NotDetected) Parainfluenza 4 (PCR) (NotDetected) RSV (PCR) (NotDetected) Entero/Rhino (PCR) (NotDetected) 03/14/23 03/14/23 03/14/23 Range/Units 17:25 18:45 18:45 WBC (4.8-10.8) K/ul RBC (4.70-6.10) M/uL Hgb (14.0-18.0) g/dl Hct (42.0-52.0) % MCV (80.0-100.0) fL MCH (25.0-34.0) pg MCHC (32.0-36.0) g/dL RDW Std Deviation (36.4-46.3) fL RDW Coeff of Alex (11.5-14.5) % Plt Count (130-400) K/uL MPV (9.4-12.4) fL Immature Gran % (Auto) % Neut % (Auto) % Lymph % (Auto) % [place] % (Auto) % Eos % (Auto) % Baso % (Auto) % Neut # (Auto) (1.40-6.50) K/uL Lymph # (Auto) (1.20-3.40) K/uL [place] # (Auto) (0.11-0.59) K/uL Eos # (Auto) (0.00-0.50) K/uL Baso # (Auto) (0.00-0.20) K/uL Immature Gran # (Auto) (0.01-0.20) K/uL PT (9.0-12.0) Seconds INR (0.9-1.1) Sodium (136-145) mmol/L Potassium 4.5 Chloride (98-107) mmol/L Carbon Dioxide (21-32) mmol/L Anion Gap (3-11) BUN (6-23) mg/dl Creatinine (0.6-1.4) mg/dl Est Cr Clr Drug Dosing Est GFR ( Amer) ml/min Est GFR (Non-Af Amer) ml/min BUN/Creatinine Ratio (10-20) Glucose (70-99(Fasting)) mg/dl Lactate 0.9 (0.4-2.0) mmol/L Calcium (8.6-10.3) mg/dl Total Bilirubin (0.2-1.0) mg/dl AST 18 ALT (7-52) U/L Alkaline Phosphatase (34-104) U/L Troponin I High Sens (0-20) pg/ml Total Protein (6.0-8.3) gm/dl Albumin (3.4-5.0) gm/dl Globulin (2.5-4.0) gm/dl Albumin/Globulin Ratio (0.9-2) Procalcitonin (0-0.5) ng/ml Urine Color Urine Appearance (Clear) Urine pH (4.5-7.5) Ur Specific [place] (1.000-1.030) Urine Protein (Negative) Urine Glucose (UA) (Negative) Urine Ketones (Negative) Urine Blood (Negative) Urine Nitrite (Negative) Urine Bilirubin (Negative) Urine Urobilinogen (Negative) Ur Leukocyte Esterase (Negative) Adenovirus (PCR) Not Detected (NotDetected) B. pertussis DNA (PCR) Not Detected (NotDetected) B.parapertussis DNA PCR Not Detected (NotDetected) C. pneumoniae DNA (PCR) Not Detected (NotDetected) Coronavirus OC43 (PCR) Not Detected (NotDetected) Coronavirus HKU1 (PCR) Not Detected (NotDetected) Coronavirus 229E (PCR) Not Detected (NotDetected) SARS-CoV-2 (PCR) Not Detected (NotDetected) Coronavirus NL63 (PCR) Not Detected (NotDetected) Human Metapneumovir PCR Not Detected (NotDetected) Influenza Type A (PCR) Not Detected (NotDetected) Influenza Type B (PCR) Not Detected (NotDetected) M. pneumoniae (PCR) Not Detected (NotDetected) Parainfluenza 1 (PCR) Not Detected (NotDetected) Parainfluenza 2 (PCR) Not Detected (NotDetected) Parainfluenza 3 (PCR) Not Detected (NotDetected) Parainfluenza 4 (PCR) Not Detected (NotDetected) RSV (PCR) Not Detected (NotDetected) Entero/Rhino (PCR) Not Detected (NotDetected) 03/14/23 03/14/23 Range/Units 18:45 19:58 WBC (4.8-10.8) K/ul RBC (4.70-6.10) M/uL Hgb (14.0-18.0) g/dl Hct (42.0-52.0) % MCV (80.0-100.0) fL MCH (25.0-34.0) pg MCHC (32.0-36.0) g/dL RDW Std Deviation (36.4-46.3) fL RDW Coeff of Alex (11.5-14.5) % Plt Count (130-400) K/uL MPV (9.4-12.4) fL Immature Gran % (Auto) % Neut % (Auto) % Lymph % (Auto) % [place] % (Auto) % Eos % (Auto) % Baso % (Auto) % Neut # (Auto) (1.40-6.50) K/uL Lymph # (Auto) (1.20-3.40) K/uL [place] # (Auto) (0.11-0.59) K/uL Eos # (Auto) (0.00-0.50) K/uL Baso # (Auto) (0.00-0.20) K/uL Immature Gran # (Auto) (0.01-0.20) K/uL PT 34.6 H (9.0-12.0) Seconds INR 3.4 H (0.9-1.1) Sodium (136-145) mmol/L Potassium Chloride (98-107) mmol/L Carbon Dioxide (21-32) mmol/L Anion Gap (3-11) BUN (6-23) mg/dl Creatinine (0.6-1.4) mg/dl Est Cr Clr Drug Dosing Est GFR ( Amer) ml/min Est GFR (Non-Af Amer) ml/min BUN/Creatinine Ratio (10-20) Glucose (70-99(Fasting)) mg/dl Lactate (0.4-2.0) mmol/L Calcium (8.6-10.3) mg/dl Total Bilirubin (0.2-1.0) mg/dl AST ALT (7-52) U/L Alkaline Phosphatase (34-104) U/L Troponin I High Sens (0-20) pg/ml Total Protein (6.0-8.3) gm/dl Albumin (3.4-5.0) gm/dl Globulin (2.5-4.0) gm/dl Albumin/Globulin Ratio (0.9-2) Procalcitonin (0-0.5) ng/ml Urine Color Yellow Urine Appearance Clear (Clear) Urine pH 7.0 (4.5-7.5) Ur Specific [place] 1.012 (1.000-1.030) Urine Protein Negative (Negative) Urine Glucose (UA) Negative (Negative) Urine Ketones Negative (Negative) Urine Blood Negative (Negative) Urine Nitrite Negative (Negative) Urine Bilirubin Negative (Negative) Urine Urobilinogen Negative (Negative) Ur Leukocyte Esterase Negative (Negative) Adenovirus (PCR) (NotDetected) B. pertussis DNA (PCR) (NotDetected) B.parapertussis DNA PCR (NotDetected) C. pneumoniae DNA (PCR) (NotDetected) Coronavirus OC43 (PCR) (NotDetected) Coronavirus HKU1 (PCR) (NotDetected) Coronavirus 229E (PCR) (NotDetected) SARS-CoV-2 (PCR) (NotDetected) Coronavirus NL63 (PCR) (NotDetected) Human Metapneumovir PCR (NotDetected) Influenza Type A (PCR) (NotDetected) Influenza Type B (PCR) (NotDetected) M. pneumoniae (PCR) (NotDetected) Parainfluenza 1 (PCR) (NotDetected) Parainfluenza 2 (PCR) (NotDetected) Parainfluenza 3 (PCR) (NotDetected) Parainfluenza 4 (PCR) (NotDetected) RSV (PCR) (NotDetected) Entero/Rhino (PCR) (NotDetected) Administered Medications Discontinued Medications Sodium Chloride (Nss) 500 mls @ 999 mls/hr IV .Q31M STA Stop: 03/14/23 17:13 Last Infusion: 03/14/23 18:01 Dose: 0 mls/hr Documented By: Admin: 03/14/23 17:30 Dose: 999 mls/hr Documented By: Ondansetron HCl (Ondansetron Inj 2 Mg/Ml 2 Ml Vial) 4 mg IV NOW STA Stop: 03/14/23 16:44 Last Admin: 03/14/23 17:30 Dose: 4 mg Documented By: Imaging Data Radiologist's Impression: Chest X-Ray 03/14/23 16:43 SINGLE VIEW CHEST CLINICAL HISTORY: Fever FINDINGS: 2 AP, portable, upright chest radiographs are compared to study dated 05/06/2017 and correlated with chest CT dated 02/16/2017. The examination is degraded by portable technique and patient rotation. The heart is enlarged noting atherosclerotic calcification of the thoracic aorta. The pulmonary vasculature is noncongested. Chronic interstitial thickening is similar to previous. There is bibasilar scarring/atelectasis. Question streaky left suprahilar opacities. No large pleural effusion is identified. There are scattered calcified granulomas. No pneumothorax is seen. The skeletal structures are osteopenic. The bony thorax is grossly intact. A right shoulder arthroplasty is in place. Fusion hardware is partially visualized in the lumbar spine. Cholecystectomy clips are seen in the right upper quadrant. IMPRESSION: 1. Mild cardiomegaly without radiographic evidence of congestive failure. 2. Question streaky airspace opacities in the left suprahilar region. Correlate clinically for evidence of developing pneumonia. Radiographic follow-up to resolution is recommended. ACT 112: Negative or not required by law. Electronically signed by: Raymundo Hansen M.D. 03/14/2023 5:[address] 03/14/23 19:27 Exam(s): CT HEAD Without Contrast EXAM: CT Head Without Intravenous Contrast CLINICAL HISTORY: Reason for exam: dizziness. TECHNIQUE: Axial computed tomography images of the head/brain without intravenous contrast. CTDI is 38.43 mGy and DLP is 702.46 mGy-cm. Automated exposure control was utilized for the study. A dose lowering technique was utilized adhering to the principles of ALARA. COMPARISON: No relevant prior studies available. FINDINGS: No acute intracranial hemorrhage. No midline shift or mass effect. The territorial whitley-white matter differentiation is maintained throughout. Age-related cerebral volume loss. Periventricular and subcortical white matter hypoattenuation, consistent with chronic microangiopathy. The visualized orbits appear grossly unremarkable. The calvarium is intact. The visualized paranasal sinuses and mastoid air cells are grossly clear. IMPRESSION: No acute intracranial hemorrhage, midline shift, or mass effect. Electronically signed by: Tani Tracey MD 03/14/23 20:32 PM Discharge Plan Visit Data Chief Complaint: Flu Like Symptoms Stated Complaint: FLU LIKE SYMPTOMS ED Provider: Alyson Gaitan Discharge Problem: Dizziness, Ambulatory dysfunction Forms Stand Alone Forms: My [facility] Prescriptions Prescriptions: No Action furosemide [Lasix] 40 mg Tablet 40 mg PO QAM PRN (Reason: Edema) warfarin [Jantoven] 5 mg Tablet 5 - 7.5 mg PO UD Rx Instructions: as directed by coumadin clinic-take 7.5mg tues and sat.; take 5mg all other days w/evening meal. digoxin [Digox] 125 mcg Tablet 125 mcg PO HS azelastine 137 mcg (0.1 %) Aerosol,[place] 2 spray INTRANASAL UD PRN (Reason: Nasal Congestion) fluticasone propionate [Flonase Allergy Relief] 50 mcg/actuation [place],Suspension 2 spray INTRANASAL QAM PRN (Reason: Congestion) metoprolol tartrate 25 mg Tablet 12.5 mg PO BID quinine sulfate [Qualaquin] 324 mg Capsule 324 mg PO HS PRN (Reason: leg cramping) cholecalciferol (vitamin D3) [Vitamin D3] 5,000 unit Tablet 5,000 unit PO QAM magnesium oxide 400 mg Capsule 400 mg PO QAM krill oil [id number] mg Capsule 1 cap PO QAM acetaminophen 500 mg Tablet 500 mg PO Q6H PRN (Reason: Pain) baclofen 10 mg Tablet 10 mg PO BID PRN (Reason: muscle spasms) folic acid 1 mg Tablet 1 mg PO QAM albuterol 90 mcg/actuation Aerosol 90 mcg INHALATION Q6H PRN (Reason: shortness of breath, wheezing) cyanocobalamin (vitamin B-12) [Vitamin B-12] 5,000 mcg Tablet, Sublingual 5,000 mcg SUBLINGUAL QAM Zetia See Rx Instructions .ROUTE .COMPLEX Rx Instructions: per pt he had trouble with statins so they switched him to a medication with a Z. No med history populates. Referrals Referrals: Xiomara Kearns MD [Primary Care Provider] -
[2023-03-14 18:33] LABS: Adenovirus PCR Not Detected (NotDetected); Bordetella parapertussis PCR Not Detected (NotDetected); Bordetella pertussis PCR Not Detected (NotDetected); Chlamydia pneumoniae PCR Not Detected (NotDetected); Coronavirus 229E PCR Not Detected (NotDetected); Coronavirus CoV-2 (COVID19)PCR Not Detected (NotDetected); Coronavirus HKU1 PCR Not Detected (NotDetected); Coronavirus NL63 PCR Not Detected (NotDetected); Coronavirus OC43PCR Not Detected (NotDetected); Human Metapneumovirus PCR Not Detected (NotDetected); Influenza A PCR Not Detected (NotDetected); Influenza B PCR Not Detected (NotDetected); Mycoplasma pneumoniae PCR Not Detected (NotDetected); Parainfluenza Virus 1 PCR Not Detected (NotDetected); Parainfluenza Virus 2 PCR Not Detected (NotDetected); Parainfluenza Virus 3 PCR Not Detected (NotDetected); Parainfluenza Virus 4 PCR Not Detected (NotDetected); Respiratory Syncytial VirusPCR Not Detected (NotDetected); Rhinovirus/Enterovirus PCR Not Detected (NotDetected)
[2023-03-14 19:22] LABS: Potassium 4.5 mmol/L (3.5-5.1)
[2023-03-14 19:31] LABS: INR 3.4 (0.9-1.1); Prothrombin Time 34.6 Seconds (9.0-12.0)
--- NOTE | 2023-03-14 20:33 | CT Scan Report ---
Exam(s): CT HEAD Without Contrast EXAM: CT Head Without Intravenous Contrast CLINICAL HISTORY: Reason for exam: dizziness. TECHNIQUE: Axial computed tomography images of the head/brain without intravenous contrast. CTDI is 38.43 mGy and DLP is 702.46 mGy-cm. Automated exposure control was utilized for the study. A dose lowering technique was utilized adhering to the principles of ALARA. COMPARISON: No relevant prior studies available. FINDINGS: No acute intracranial hemorrhage. No midline shift or mass effect. The territorial whitley-white matter differentiation is maintained throughout. Age-related cerebral volume loss. Periventricular and subcortical white matter hypoattenuation, consistent with chronic microangiopathy. The visualized orbits appear grossly unremarkable. The calvarium is intact. The visualized paranasal sinuses and mastoid air cells are grossly clear. IMPRESSION: No acute intracranial hemorrhage, midline shift, or mass effect. Electronically signed by: Tani Tracey MD 03/14/23 20:32 PM
[2023-03-14 21:21] LABS: Appearance Urine Clear (Clear); Bilirubin Urine Negative (Negative); Blood Urine Negative (Negative); Color Urine Yellow; Glucose Urine UA Negative (Negative); Ketones Urine Negative (Negative); Leukocyte Esterase Urine Negative (Negative); Nitrite Urine Negative (Negative); Protein Urine Negative (Negative); Specific Gravity Urine 1.012 (1.000-1.030); Urobilinogen Urine Negative (Negative)
[2023-03-14] MEDS ORDERED: LORazepam 2 MG/1 ML VIAL IV STA (21:48)
--- NOTE | 2023-03-15 00:21 | History & Physical Report ---
Date of Service March 15, 2023 Assessment & Plan (1) Dizziness: Plan: 82-year-old male with past medical significant for hereditary hematochromatosis, hyperlipidemia, paroxysmal SVT, carotid artery aneurysm, aortic root dilatation, hypertension, GERD, BPH, osteoarthritis, history of PE, history of TIA, history of DVT, s/p TURP of prostate presents with dizziness, nausea, blurred vision and weakness thinks symptoms started after flu vaccine last Monday. 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 for further recommendations Ambulatory dysfunction PT OT History of DVT History of PE On Coumadin We will follow PT/INR Lower extremity edema On Lasix as needed at home Echo done July 2022 EF of 61% We will follow repeat echo History of paroxysmal SVT On metoprolol History of hypertension On metoprolol History of hereditary hemochromatosis Gets phlebotomy as needed DVT prophylaxis on Coumadin Follow PT/INR Disposition med/telemetry Full code (2) Ambulatory dysfunction: History of Present Illness Chief Complaint: Dizziness, blurred vision questionable diplopia, nausea and weakness Primary Care Provider: Xiomara Kearns MD 82-year-old male with past medical significant for hereditary hematochromatosis, hyperlipidemia, paroxysmal SVT, carotid artery aneurysm, aortic root dilatation, hypertension, GERD, BPH, osteoarthritis, history of PE, history of TIA, history of DVT, s/p TURP of prostate presents with dizziness, nausea, blurred vision and weakness. Patient states he had flu vaccine last Monday. 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 Monday afternoon symptoms seem to be improved but again they got worse and came to ER. In the ER he was having ambulatory dysfunction requiring assistance to ambulate. At home he generally ambulates without support but only in the nighttime uses walker. Has some headache. Has some runny nose and cough. No sore throat. Appetite is down. No dysphagia. No chest pain or shortness of breath. No abdominal pain. Bowels moving okay. Was having trouble micturating in the ER and was placed on King and drained about 1 L of urine. Hemodynamically stable Past medical history as mentioned above Past surgical history. Colonoscopy, EGD, left knee arthroscopy, laparoscopic cholecystectomy, back surgeries, removal of nasal polyps, TURP, right total hip replacement, Social history. no smoking. No alcohol. No drug use. Family history. Father had of [place] at age 48. Brother had ureteral cancer. Brother has hypertension. Brother has Parkinson disease. Daughter has thyroid disorder. Son has thyroid disorder. Allergies Allergy/AdvReac Type Severity Reaction Status Date / Time vancomycin Allergy Mild red, itchy Verified 03/01/23 10:04 Sulfa (Sulfonamide Allergy Unknown "Everyone Verified 03/01/23 10:04 Antibiotics) in family" Home Medications Medication Instructions Recorded Confirmed Type azelastine 137 mcg (0.1 %) nasal 2 spray intranasal UD PRN Nasal 10/01/18 03/14/23 History spray aerosol Congestion cholecalciferol (vitamin D3) 125 5,000 unit PO QAM 10/01/18 03/14/23 History mcg (5,000 unit) tablet (Vitamin D3) digoxin 125 mcg (0.125 mg) tablet 125 mcg PO HS 10/01/18 03/14/23 History (Digox) fluticasone propionate 50 2 spray intranasal QAM PRN 10/01/18 03/14/23 History mcg/actuation nasal Congestion spray,suspension (Flonase Allergy Relief) furosemide 40 mg tablet (Lasix) 40 mg PO QAM PRN Edema 10/01/18 03/14/23 History krill 1,000 mg-omega-3 170 mg-dha 1 cap PO QAM 10/01/18 03/14/23 History 50 mg-epa 80 [id number] capsule (krill oil) magnesium oxide 400 mg PO QAM 10/01/18 03/14/23 History metoprolol tartrate 25 mg tablet 12.5 mg PO BID 10/01/18 03/14/23 History quinine sulfate 324 mg capsule 324 mg PO HS PRN leg cramping 10/01/18 03/14/23 History (Qualaquin) warfarin 5 mg tablet (Jantoven) 5 - 7.5 mg PO UD 10/01/18 03/14/23 History acetaminophen 500 mg tablet 500 mg PO Q6H PRN Pain 01/21/22 03/14/23 History albuterol 90 mcg/actuation aerosol 90 mcg inhalation Q6H PRN 01/21/22 03/14/23 History inhaler shortness of breath, wheezing baclofen 10 mg tablet 10 mg PO BID PRN muscle spasms 01/21/22 03/14/23 History cyanocobalamin (vitamin B-12) 5,000 mcg sublingual QAM 01/21/22 03/14/23 History 5,000 mcg sublingual tablet (Vitamin B-12) folic acid 1 mg tablet 1 mg PO QAM 01/21/22 03/14/23 History Zetia See Rx Instructions .Route .COMPLEX 03/14/23 03/14/23 History Past Med/Surg History Medical History Aortic root dilatation Moderately enlarged, unchanged compared to 02/04/2020 (per 11/09/20 DSE report) Basal cell carcinoma of nose hx Carotid artery disease B/L ICA stenosis < 50% Deep vein thrombosis LLE DVT (2011); f/u coag clinic [facility] Dyslipidemia GERD (gastroesophageal reflux disease) Controlled Hearing deficit No aids Hemochromatosis Hereditary hemochromatosis, phlebotomy q6 months per GI (most recent 08/2020 per GI), (per PCP 12/2020, recent transferrin level WNL) History of anesthesia reaction when I had sx in [place] "I had hallucinations and had to see the eye doctor following because I was seeing crazy things." Hyperlipidemia Hypertension Osteoarthritis Paroxysmal SVT (supraventricular tachycardia) Follows with [facility] Pulmonary embolism Post-op (2011) TIA (transient ischemic attack) TIA (2014/no evidence of CVA on MRI per PCP records) Surgical History H/O left knee surgery H/O nasal polypectomy History of back surgery x6 (including rods/screws) History of colonoscopy History of esophagogastroduodenoscopy (EGD) History of prostate surgery TURP (11/13/20; [facility] [place] Grade view 1, glidescope 3, ETT 7.5 at [facility] History of reverse total replacement of right shoulder joint History of right cataract surgery History of tooth extraction History of total right hip replacement Hx of basal cell carcinoma excision Hx of cholecystectomy Status post Mohs surgery for basal cell carcinoma Family History Brother Family hx colonic polyps Other No family history of adverse response to anesthesia Social History Smoking Status: Never smoker Second Hand Exposure: No; Do You Dip or Chew Tobacco: No; Hx Alcohol Use: No Hx Substance Use: No Preferred Language: Turkmen Communication Ability: Effective 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 Heart- regular rhythm; no murmur, no gallop. Abdomen- normal bowel sounds, soft, nontender, no distension Extremities- nb/l lower extremity edema present. no erythema seen Neuro- alert, oriented x 3; PERRL, EOMI; no facial palsy; no dysarthria; motor 5/5 bilaterally; co ordination of movements normal, no pronator drift, sensations intact, position sense intact Skin- warm & dry Results & Data Results & Data Vital Signs (Past 12 Hours) Vital Signs Temp Pulse Pulse Resp BP BP Pulse Ox 03/14/23 23:04 58 L 03/14/23 23:00 62 24 153/85 H 97 03/14/23 22:30 62 24 164/84 H 98 03/14/23 22:00 59 L 14 144/77 H 96 03/14/23 21:30 60 16 166/74 H 97 03/14/23 21:14 79 21 154/82 H 99 03/14/23 21:12 72 15 159/77 H 100 03/14/23 21:11 78 15 155/80 H 99 03/14/23 21:00 70 03/14/23 21:00 59 L 21 152/96 H 98 03/14/23 20:30 59 L 16 158/87 H 98 03/14/23 20:16 71 19 97 03/14/23 19:30 66 20 150/77 H 100 03/14/23 19:06 64 17 100 03/14/23 19:07 63 03/14/23 19:04 72 16 153/87 H 98 03/14/23 16:41 36.4 C L 67 18 150/79 H 99 O2 Del Method 03/14/23 23:04 03/14/23 23:00 Room Air 03/14/23 22:30 Room Air 03/14/23 22:00 Room Air 03/14/23 21:30 Room Air 03/14/23 21:14 Room Air 03/14/23 21:12 03/14/23 21:11 03/14/23 21:00 Room Air 03/14/23 21:00 Room Air 03/14/23 20:30 03/14/23 20:16 03/14/23 19:30 Room Air 03/14/23 19:06 03/14/23 19:07 03/14/23 19:04 Room Air 03/14/23 16:41 Room Air Diagnostic Findings Laboratory Results WBC 4.29 K/ul (4.8-10.8) L 03/14/23 17:25 RBC 4.71 M/uL (4.70-6.10) 03/14/23 17:25 Hgb 14.6 g/dl (14.0-18.0) 03/14/23 17:25 Hct 42.0 % (42.0-52.0) 03/14/23 17:25 MCV 89.2 fL (80.0-100.0) 03/14/23 17:25 MCH 31.0 pg (25.0-34.0) 03/14/23 17:25 MCHC 34.8 g/dL (32.0-36.0) 03/14/23 17:25 RDW Std Deviation 47.5 fL (36.4-46.3) H 03/14/23 17:25 RDW Coeff of Alex 14.6 % (11.5-14.5) H 03/14/23 17:25 Plt Count 140 K/uL (130-400) 03/14/23 17:25 MPV 9.7 fL (9.4-12.4) 03/14/23 17:25 Immature Gran % (Auto) 0.2 % 03/14/23 17:25 Neut % (Auto) 66.7 % 03/14/23 17:25 Lymph % (Auto) 12.6 % 03/14/23 17:25 [place] % (Auto) 14.2 % 03/14/23 17:25 Eos % (Auto) 5.6 % 03/14/23 17:25 Baso % (Auto) 0.7 % 03/14/23 17:25 Neut # (Auto) 2.86 K/uL (1.40-6.50) 03/14/23 17:25 Lymph # (Auto) 0.54 K/uL (1.20-3.40) L 03/14/23 17:25 [place] # (Auto) 0.61 K/uL (0.11-0.59) H 03/14/23 17:25 Eos # (Auto) 0.24 K/uL (0.00-0.50) 03/14/23 17:25 Baso # (Auto) 0.03 K/uL (0.00-0.20) 03/14/23 17:25 Immature Gran # (Auto) 0.01 K/uL (0.01-0.20) 03/14/23 17:25 PT 34.6 Seconds (9.0-12.0) H 03/14/23 18:45 INR 3.4 (0.9-1.1) H 03/14/23 18:45 Sodium 136 mmol/L (136-145) 03/14/23 17:25 Potassium 4.5 mmol/L (3.5-5.1) 03/14/23 18:45 Chloride 103 mmol/L (98-107) 03/14/23 17:25 Carbon Dioxide 29 mmol/L (21-32) 03/14/23 17:25 Anion Gap 4 (3-11) 03/14/23 17:25 BUN 22 mg/dl (6-23) 03/14/23 17:25 Creatinine 0.95 mg/dl (0.6-1.4) 03/14/23 17:25 Est Cr Clr Drug Dosing Not Reportable 03/14/23 17:25 Est GFR ( Amer) 86.1 ml/min 03/14/23 17:25 Est GFR (Non-Af Amer) 74.2 ml/min 03/14/23 17:25 BUN/Creatinine Ratio 23.2 (10-20) H 03/14/23 17:25 Glucose 90 mg/dl (70-99(Fasting)) 03/14/23 17:25 Lactate 0.9 mmol/L (0.4-2.0) 03/14/23 18:45 Calcium 9.2 mg/dl (8.6-10.3) 03/14/23 17:25 Total Bilirubin 0.5 mg/dl (0.2-1.0) 03/14/23 17:25 AST 18 U/L (13-39) 03/14/23 18:45 ALT 14 U/L (7-52) 03/14/23 17:25 Alkaline Phosphatase 58 U/L (34-104) 03/14/23 17:25 Troponin I High Sens 5.6 pg/ml (0-20) 03/14/23 17:25 Total Protein 6.4 gm/dl (6.0-8.3) 03/14/23 17:25 Albumin 4.1 gm/dl (3.4-5.0) 03/14/23 17:25 Globulin 2.3 gm/dl (2.5-4.0) L 03/14/23 17:25 Albumin/Globulin Ratio 1.8 (0.9-2) 03/14/23 17:25 Procalcitonin < 0.05 ng/ml (0-0.5) 03/14/23 17:25 Urine Color Yellow 03/14/23 19:58 Urine Appearance Clear (Clear) 03/14/23 19:58 Urine pH 7.0 (4.5-7.5) 03/14/23 19:58 Ur Specific [place] 1.012 (1.000-1.030) 03/14/23 19:58 Urine Protein Negative (Negative) 03/14/23 19:58 Urine Glucose (UA) Negative (Negative) 03/14/23 19:58 Urine Ketones Negative (Negative) 03/14/23 19:58 Urine Blood Negative (Negative) 03/14/23 19:58 Urine Nitrite Negative (Negative) 03/14/23 19:58 Urine Bilirubin Negative (Negative) 03/14/23 19:58 Urine Urobilinogen Negative (Negative) 03/14/23 19:58 Ur Leukocyte Esterase Negative (Negative) 03/14/23 19:58 Adenovirus (PCR) Not Detected (NotDetected) 03/14/23 17:25 B. pertussis DNA (PCR) Not Detected (NotDetected) 03/14/23 17:25 B.parapertussis DNA PCR Not Detected (NotDetected) 03/14/23 17:25 C. pneumoniae DNA (PCR) Not Detected (NotDetected) 03/14/23 17:25 Coronavirus OC43 (PCR) Not Detected (NotDetected) 03/14/23 17:25 Coronavirus HKU1 (PCR) Not Detected (NotDetected) 03/14/23 17:25 Coronavirus 229E (PCR) Not Detected (NotDetected) 03/14/23 17:25 SARS-CoV-2 (PCR) Not Detected (NotDetected) 03/14/23 17:25 Coronavirus NL63 (PCR) Not Detected (NotDetected) 03/14/23 17:25 Human Metapneumovir PCR Not Detected (NotDetected) 03/14/23 17:25 Influenza Type A (PCR) Not Detected (NotDetected) 03/14/23 17:25 Influenza Type B (PCR) Not Detected (NotDetected) 03/14/23 17:25 M. pneumoniae (PCR) Not Detected (NotDetected) 03/14/23 17:25 Parainfluenza 1 (PCR) Not Detected (NotDetected) 03/14/23 17:25 Parainfluenza 2 (PCR) Not Detected (NotDetected) 03/14/23 17:25 Parainfluenza 3 (PCR) Not Detected (NotDetected) 03/14/23 17:25 Parainfluenza 4 (PCR) Not Detected (NotDetected) 03/14/23 17:25 RSV (PCR) Not Detected (NotDetected) 03/14/23 17:25 Entero/Rhino (PCR) Not Detected (NotDetected) 03/14/23 17:25 Impressions Chest X-Ray 03/14/23 16:43 SINGLE VIEW CHEST CLINICAL HISTORY: Fever FINDINGS: 2 AP, portable, upright chest radiographs are compared to study dated 05/06/2017 and correlated with chest CT dated 02/16/2017. The examination is degraded by portable technique and patient rotation. The heart is enlarged noting atherosclerotic calcification of the thoracic aorta. The pulmonary vasculature is noncongested. Chronic interstitial thickening is similar to previous. There is bibasilar scarring/atelectasis. Question streaky left suprahilar opacities. No large pleural effusion is identified. There are scattered calcified granulomas. No pneumothorax is seen. The skeletal structures are osteopenic. The bony thorax is grossly intact. A right shoulder arthroplasty is in place. Fusion hardware is partially visualized in the lumbar spine. Cholecystectomy clips are seen in the right upper quadrant. IMPRESSION: 1. Mild cardiomegaly without radiographic evidence of congestive failure. 2. Question streaky airspace opacities in the left suprahilar region. Correlate clinically for evidence of developing pneumonia. Radiographic follow-up to resolution is recommended. ACT 112: Negative or not required by law. Electronically signed by: Raymundo Hansen M.D. 03/14/2023 5:[address] 03/14/23 19:27 Exam(s): CT HEAD Without Contrast EXAM: CT Head Without Intravenous Contrast CLINICAL HISTORY: Reason for exam: dizziness. TECHNIQUE: Axial computed tomography images of the head/brain without intravenous contrast. CTDI is 38.43 mGy and DLP is 702.46 mGy-cm. Automated exposure control was utilized for the study. A dose lowering technique was utilized adhering to the principles of ALARA. COMPARISON: No relevant prior studies available. FINDINGS: No acute intracranial hemorrhage. No midline shift or mass effect. The territorial whitley-white matter differentiation is maintained throughout. Age-related cerebral volume loss. Periventricular and subcortical white matter hypoattenuation, consistent with chronic microangiopathy. The visualized orbits appear grossly unremarkable. The calvarium is intact. The visualized paranasal sinuses and mastoid air cells are grossly clear. IMPRESSION: No acute intracranial hemorrhage, midline shift, or mass effect. Electronically signed by: Tani Tracey MD 03/14/23 20:32 PM ECG Additional Comments: ECG sinus rhythm with PACs rate of 61. Right bundle branch block. Left anterior fasciclar block Code Status & VTE Plan VTE Prophylaxis Plan VTE Prophylaxis will be ordered: Yes
[2023-03-15] MEDS ORDERED: AZELASTINE HCL 0.1% NASAL 200 SPRAYS/27,400 MCG BTL PRN (00:41)
[2023-03-15] MEDS ORDERED: FLUTICASONE PROPIONATE NA SPR 16 GM BTL PRN (00:41)
[2023-03-15] MEDS ORDERED: NITROGLYCERIN SL 0.4 MG/TAB TAB SL PRN (00:41)
[2023-03-15] MEDS ORDERED: POLYETHYLENE (MIRALAX) 17 GM PACK PO PRN (00:41)
[2023-03-15] MEDS ORDERED: FUROSEMIDE 40 MG TAB PO PRN (00:41)
[2023-03-15] MEDS ORDERED: ALBUTEROL HFA 8 GM INHALER INH PRN (00:53)
[2023-03-15] MEDS ORDERED: GADOBUTROL 65ML VIAL IV ONE (02:18)
[2023-03-15] MEDS: ACETAMINOPHEN 325 MG TAB PO PRN (02:34)
--- NOTE | 2023-03-15 03:54 | Urology Consultation ---
Date of Consultation March 15, 2023 Assessment & Plan (1) Urinary retention: The patient has been admitted to the hospitalist service and is currently undergoing stroke evaluation. We will defer further management and evaluation of this condition to their discretion. Concerning urinary retention we re commend proceeding as follows: It does not appear as though the patient has a urinary tract infection. I therefore not feel antibiotics are needed at this time Would admit recommend maintaining bladder rest with King catheter in place for several days. Following bladder rest consideration can be given to having the patient undergo voiding trial. If the patient does fail voiding trial prior to discharge he is to have his King catheter replaced and outpatient urology should be employed. The patient currently follows with [facility] urology in [place], [place]. We will leave it to the discretion of the primary service and the patient if they would like to follow with [facility] physician group urology locally or if he would like to follow with [facility] urology locally. History of Present Illness Reason for Consultation: Urinary retention Attending Physician: Nimisha Barrow MD History of Present Illness This is an 82-year-old male who presented to the emergency department secondary to dizziness. With his dizziness he has had associated nausea. He has since been admitted to the hospital as it was felt that his symptomatology could represent an acute stroke and he is currently undergoing evaluation for that. In the emergency department the patient was found to be retaining urine which will be described further below. I did question patient about his urologic history and he notes that he did have a transurethral resection of prostate at [facility] in [place], [place] approximately 5 years ago. The patient notes that of recent times he has had decreased urine stream noted. He notes that he has to double void in order to empty his bladder. He specifically denies any back or flank pain. He denies any dysuria or hematuria. chyna arrival to the hospital the patient has had labs and imaging which had been reviewed. A chest x-ray showed some airspace opacities in the left suprahilar region concerning for developing pneumonia. A CT scan of the head was performed that showed no acute intracranial hemorrhage midline shift or mass effect. A brain MRI has been ordered and is pending at this time. Labs include a CBC her white blood cell count was 4.2. Hemoglobin and hematocrit along with the platelet count were normal. INR was noted to be 3.4. Chemistry profile showed sodium, potassium, BUN, and creatinine were all normal. Patient did have a urin alysis that was not indicative of infection. Patient did have a bio fire sent which was negative for all viral etiologies tested. In the emergency department the patient was found to be retaining urine. He therefore had a King catheter placed. I discussed with the nurse attending the patient and when the King catheter was placed immediately approximate 1.5 L of urine was retrieved. At the time my interview the patient was resting comfortably in bed and he was in no distress. Allergies Allergy/AdvReac Type Severity Reaction Status Date / Time vancomycin Allergy Mild red, itchy Verified 03/01/23 10:04 Sulfa (Sulfonamide Allergy Unknown "Everyone Verified 03/01/23 10:04 Antibiotics) in family" Home Medications Medication Instructions Recorded Confirmed Type azelastine 137 mcg (0.1 %) nasal 2 spray intranasal UD PRN Nasal 10/01/18 03/14/23 History spray aerosol Congestion cholecalciferol (vitamin D3) 125 5,000 unit PO QAM 10/01/18 03/14/23 History mcg (5,000 unit) tablet (Vitamin D3) digoxin 125 mcg (0.125 mg) tablet 125 mcg PO HS 10/01/18 03/14/23 History (Digox) fluticasone propionate 50 2 spray intranasal QAM PRN 10/01/18 03/14/23 History mcg/actuation nasal Congestion spray,suspension (Flonase Allergy Relief) furosemide 40 mg tablet (Lasix) 40 mg PO QAM PRN Edema 10/01/18 03/14/23 History krill 1,000 mg-omega-3 170 mg-dha 1 cap PO QAM 10/01/18 03/14/23 History 50 mg-epa 80 [id number]-ssnci capsule (krill oil) magnesium oxide 400 mg PO QAM 10/01/18 03/14/23 History metoprolol tartrate 25 mg tablet 12.5 mg PO BID 10/01/18 03/14/23 History quinine sulfate 324 mg capsule 324 mg PO HS PRN leg cramping 10/01/18 03/14/23 History (Qualaquin) warfarin 5 mg tablet (Jantoven) 5 - 7.5 mg PO UD 10/01/18 03/14/23 History acetaminophen 500 mg tablet 500 mg PO Q6H PRN Pain 01/21/22 03/14/23 History albuterol 90 mcg/actuation aerosol 90 mcg inhalation Q6H PRN 01/21/22 03/14/23 History inhaler shortness of breath, wheezing baclofen 10 mg tablet 10 mg PO BID PRN muscle spasms 01/21/22 03/14/23 History cyanocobalamin (vitamin B-12) 5,000 mcg sublingual QAM 01/21/22 03/14/23 History 5,000 mcg sublingual tablet (Vitamin B-12) folic acid 1 mg tablet 1 mg PO QAM 01/21/22 03/14/23 History Zetia See Rx Instructions .Route .COMPLEX 03/14/23 03/14/23 History Patient History Medical History Aortic root dilatation Moderately enlarged, unchanged compared to 02/04/2020 (per 11/09/20 DSE report) Basal cell carcinoma of nose hx Carotid artery disease B/L ICA stenosis < 50% Deep vein thrombosis LLE DVT (2011); f/u coag clinic [facility] Dyslipidemia GERD (gastroesophageal reflux disease) Controlled Hearing deficit No aids Hemochromatosis Hereditary hemochromatosis, phlebotomy q6 months per GI (most recent 08/2020 per GI), (per PCP 12/2020, recent transferrin level WNL) History of anesthesia reaction when I had sx in [place] "I had hallucinations and had to see the eye doctor following because I was seeing crazy things." Hyperlipidemia Hypertension Osteoarthritis Paroxysmal SVT (supraventricular tachycardia) Follows with [facility] Pulmonary embolism Post-op (2011) TIA (transient ischemic attack) TIA (2014/no evidence of CVA on MRI per PCP records) Surgical History H/O left knee surgery H/O nasal polypectomy History of back surgery x6 (including rods/screws) History of colonoscopy History of esophagogastroduodenoscopy (EGD) History of prostate surgery TURP (11/13/20; [facility]): Grade view 1, glidescope 3, ETT 7.5 at [facility] History of reverse total replacement of right shoulder joint History of right cataract surgery History of tooth extraction History of total right hip replacement Hx of basal cell carcinoma excision Hx of cholecystectomy Status post Mohs surgery for basal cell carcinoma Family History Brother Family hx colonic polyps Other No family history of adverse response to anesthesia Social History Smoking Status: Never smoker Second Hand Exposure: No; Do You Dip or Chew Tobacco: No; Hx Alcohol Use: No Hx Substance Use: No Preferred Language: Czech Communication Ability: Effective Linseed Oil Order Filler Required: No Beliefs That Will Affect Care: None Current Living Situation: Spouse current occupational status: retired Feels Safe at Home: Yes Assistive Devices: Denture - Upper and Nebulizer Review of Systems Constitutional: no fever and no chills Eyes: + diplopia Ear, Nose, Mouth, Throat: no ear pain Respiratory: no cough and no dyspnea Cardiovascular: no chest pain Gastrointestinal: + nausea and + vomiting; no abdominal pain Genitourinary: + as per Subjective / HPI Musculoskeletal: no back pain Integumentary: no rash Neurologic: no localized weakness Physical Exam Constitutional: WD/WN, vitals as above Eyes: no conjunctival abnormality ENMT: Ears: no hearing impairment and no external ear abnormality Mouth: no oropharynx abnormality Neck: trachea midline Respiratory: normal respiratory effort; no respiratory distress and no labored breathing Cardiovascular: Rate/Rhythm: regular rate and regular rhythm Gastrointestinal (Abdomen): Abdomen is soft, nonrigid, nondistended, nontender to palpation Musculoskeletal: No calf tenderness Skin: no rashes Neurologic: moves all extremities Psychiatric: A+Ox3, euthymic affect Genitourinary: No CVA tenderness with percussion bilaterally. King catheter is in place which appears patent draining clear urine. Results & Data Vital Signs (Past 12 Hours) Vital Signs Temp Pulse Pulse Resp BP BP Pulse Ox 03/15/23 03:00 61 19 131/81 98 03/15/23 02:32 79 18 162/97 H 96 03/15/23 01:30 17 168/80 H 98 03/15/23 01:19 16 03/15/23 01:18 03/15/23 01:00 57 L 16 141/70 H 98 03/15/23 00:30 61 16 152/71 H 97 03/15/23 00:00 62 13 96 03/14/23 23:30 61 13 154/65 H 97 03/14/23 23:00 66 17 153/85 H 98 03/14/23 23:04 58 L 03/14/23 23:00 62 24 153/85 H 97 03/14/23 22:30 62 24 164/84 H 98 03/14/23 22:00 59 L 14 144/77 H 96 03/14/23 21:30 60 16 166/74 H 97 03/14/23 21:14 79 21 154/82 H 99 03/14/23 21:12 72 15 159/77 H 100 03/14/23 21:11 78 15 155/80 H 99 03/14/23 21:00 70 03/14/23 21:00 59 L 21 152/96 H 98 03/14/23 20:30 59 L 16 158/87 H 98 03/14/23 20:16 71 19 97 03/14/23 19:30 66 20 150/77 H 100 03/14/23 19:06 64 17 100 03/14/23 19:07 63 03/14/23 19:04 72 16 153/87 H 98 03/14/23 16:41 36.4 C L 67 18 150/79 H 99 Pulse Ox O2 Del Method O2 Del Method 03/15/23 03:00 Room Air 03/15/23 02:32 Room Air 03/15/23 01:30 Room Air 03/15/23 01:19 Room Air 03/15/23 01:18 100 Room Air 03/15/23 01:00 Room Air 03/15/23 00:30 Room Air 03/15/23 00:00 Room Air 03/14/23 23:30 Room Air 03/14/23 23:00 Room Air 03/14/23 23:04 03/14/23 23:00 Room Air 03/14/23 22:30 Room Air 03/14/23 22:00 Room Air 03/14/23 21:30 Room Air 03/14/23 21:14 Room Air 03/14/23 21:12 03/14/23 21:11 03/14/23 21:00 Room Air 03/14/23 21:00 Room Air 03/14/23 20:30 03/14/23 20:16 03/14/23 19:30 Room Air 03/14/23 19:06 03/14/23 19:07 03/14/23 19:04 Room Air 03/14/23 16:41 Room Air PG Care Time/CCT Total # of Minutes Spent Total Time Spent with Patient: Total time spent is greater than 50% in coordination of care (as documented) at patient's floor/unit and/or counseling patient: Coding Level of Care Code 93998 INT INP/OBS CARE 3/75MIN Diagnoses Urinary retention R33.9
[2023-03-15 05:17] LABS: INR 2.7 (0.9-1.1); Prothrombin Time 28.2 Seconds (9.0-12.0)
--- NOTE | 2023-03-15 05:17 | Magnetic Resonance Report ---
Exam(s): MRI HEAD W/WO Contrast IV Amt: 8.5cc gadavist EXAM: MR Head Without and With Intravenous Contrast CLINICAL HISTORY: Reason for exam: dizzy, diplopia?. TECHNIQUE: Magnetic resonance images of the head/brain without and with intravenous contrast in multiple planes. CONTRAST: Patient received 8.5cc gadavist of IV contrast COMPARISON: Comparison made to prior head CT from March 14, 2023. FINDINGS: Brain: Mild to moderate nonspecific white matter changes. The flow voids at the base the brain are intact. No mass. No hemorrhage. No acute infarct. No evidence of abnormal enhancement. The dural venous sinuses are patent. Ventricles: Moderate ventriculomegaly. Bones/joints: Unremarkable. Sinuses: Chronic ethmoid and right sphenoid sinusitis. No acute sinusitis. Mastoid air cells: Unremarkable as visualized. No mastoid effusion. Orbits: Bilateral lens replacements. IMPRESSION: No evidence of acute intracranial Pathology. Mild to moderate nonspecific white matter changes. Electronically signed by: Daisy Gonzalez MD 03/15/23 05:16 AM
[2023-03-15] MEDS: traMADol HCL 50 MG TABLET PO PRN ×2 (07:35→23:24)
--- NOTE | 2023-03-15 08:52 | Electrocardiogram Report ---
Test Reason : Blood Pressure : / mmHG Vent. Rate : 061 BPM Atrial Rate : 061 BPM P-R Int : 174 ms QRS Dur : 108 ms QT Int : 422 ms P-R-T Axes : 069 -60 075 degrees QTc Int : 424 ms Sinus rhythm with Premature atrial complexes Right bundle branch block Left anterior fascicular block Possible Old Septal infarct Abnormal ECG When compared with ECG of 14-OCT-2018 03:47, Borderline Criteria for Septal infarct is now Present Confirmed by Jamel Cottrell ([id number]) on 03/15/2023 8:51:39 AM Referred By: REFERRED SELF Confirmed By:Jamel Cottrell
[2023-03-15] MEDS ORDERED: NON-FORMULARY MEDICATION (Krill-Om-3-Dha-Epa-Phospho-Ast [Krill Oil] 1,000-170-50-80 mg Ca PO SCH (09:00)
[2023-03-15] MEDS: CHOLECALCIFEROL 5,000 UNITS 125 MCG TAB PO SCH (09:37)
[2023-03-15] MEDS: MAGNESIUM OXIDE 400 MG TAB PO SCH (09:38)
[2023-03-15] MEDS: FOLIC ACID 1 MG TAB PO SCH (09:38)
[2023-03-15] MEDS: CYANOCOBALAMIN (B-12) 2,500 MCG TABLET SL SCH (09:38)
[2023-03-15] MEDS: METOPROLOL TARTRATE 25 MG TAB PO SCH ×2 (09:38→20:55)
[2023-03-15] MEDS: WARFARIN SOD 5 MG TAB PO SCH (16:34)
[2023-03-15] MEDS: BACLOFEN 10 MG TAB PO PRN (20:54)
[2023-03-15] MEDS ORDERED: DIGOXIN 0.125 MG TAB PO SCH (21:00)
[2023-03-16] MEDS: ACETAMINOPHEN 325 MG TAB PO PRN (05:47)
[2023-03-16 06:01] LABS: Basophils # (auto) 0.02 K/uL (0.00-0.20); Basophils % (auto) 0.5 %; Eosinophils # (auto) 0.27 K/uL (0.00-0.50); Eosinophils % (auto) 6.9 %; Hemoglobin 14.7 g/dl (14.0-18.0); Immature Granulocytes # (auto) 0.01 K/uL (0.01-0.20); Immature Granulocytes % (auto) 0.3 %; Lymphocytes # (auto) 0.63 K/uL (1.20-3.40); Lymphocytes % (auto) 16.1 %; Mean Corpuscular Hemoglobin 30.5 pg (25.0-34.0); Mean Corpuscular Hgb Conc 34.2 g/dL (32.0-36.0); Mean Corpuscular Volume 89.2 fL (80.0-100.0); Mean Platelet Volume 9.5 fL (9.4-12.4); Monocytes # (auto) 0.71 K/uL (0.11-0.59); Monocytes % (auto) 18.1 %; Neutrophils # (auto) 2.28 K/uL (1.40-6.50); Neutrophils % (auto) 58.1 %; Platelet Count 104 K/uL (130-400); RDW Coefficient of Variation 13.9 % (11.5-14.5); RDW Standard Deviation 45.2 fL (36.4-46.3); Red Blood Count 4.82 M/uL (4.70-6.10); White Blood Count 3.92 K/ul (4.8-10.8)
[2023-03-16 06:16] LABS: Prothrombin Time 21.4 Seconds (9.0-12.0)
[2023-03-16 06:27] LABS: Calcium 9.2 mg/dl (8.6-10.3); Magnesium 1.9 mg/dl (1.7-2.4); Potassium 4.7 mmol/L (3.5-5.1)
[2023-03-16 06:33] LABS: Creatinine Clr Calc Pharmacy 56.6 ml/min; Est GFR (African American) 69.8 ml/min; Est GFR (Non-African American) 60.2 ml/min
--- NOTE | 2023-03-16 07:38 | Ultrasound Report ---
CAROTID ARTERY ULTRASOUND CLINICAL HISTORY: Dizziness. COMPARISON STUDY: Carotid ultrasound May 23, 2012. TECHNIQUE: Real-time, grayscale, and color Doppler sonography of the carotid and vertebral arteries w as performed. Images were viewed in the transverse and longitudinal planes. FINDINGS: There is mild to moderate atherosclerotic plaque. Velocity measurements are listed below. COMMON CAROTID PEAK SYSTOLIC VELOCITY (CM/S): RIGHT 69 LEFT 55 ICA PEAK SYSTOLIC VELOCITY (CM/S): RIGHT 66 LEFT 70 Systolic ratios between the internal to common carotid arteries were normal. Antegrade flow is seen in the vertebral arteries. The external carotid arteries are patent. IMPRESSION: Mild to moderate atherosclerotic plaque without evidence for a hemodynamically significa nt stenosis. ACT 112: Negative or not required by law. Electronically signed by: Reagan Sloan M.D. 03/16/2023 7:37 AM
[2023-03-16] MEDS: FOLIC ACID 1 MG TAB PO SCH (08:16)
[2023-03-16] MEDS: CYANOCOBALAMIN (B-12) 2,500 MCG TABLET SL SCH (08:16)
[2023-03-16] MEDS: CHOLECALCIFEROL 5,000 UNITS 125 MCG TAB PO SCH (08:16)
[2023-03-16] MEDS: MAGNESIUM OXIDE 400 MG TAB PO SCH (08:16)
--- NOTE | 2023-03-16 08:22 | Hospitalist Progress Note ---
Date of Service March 16, 2023 Assessment & Plan (1) Dizziness: Plan: 82-year-old male with past medical significant for hereditary hematochromatosis, hyperlipidemia, paroxysmal SVT, carotid artery aneurysm, aortic root dilatation, hypertension, GERD, BPH, osteoarthritis, history of PE, history of TIA, history of DVT, s/p TURP of prostate admitted with intractable dizziness, nausea, blurred vision and weakness. Dizziness Blurred vision Questionable diplopia earlier in the week of presentation CT head and brain MRI without acute changes. EKG on admission with possible left anterior fascicular block. Orthostatics unremarkable. Med-tele monitoring. 03/16- episode of dizziness acutely in pt's room with pt's BP noted to be 69/44. Per telemetry, pt was in junctional rhythm, possible block. Hold Toprol and lasix, Stat EKG and echo ordered, Cardiology consult placed. Pt also concerned he might need cardiology clearance for upcoming elective knee surgery. Was scheduled for appt today. History of paroxysmal SVT/HTN Received a dose of home metoprolol before acute dizzy episode on 03/16. Will hold. Cardiology consult as above for further recs. Lower extremity edema On Lasix as needed at home, received 1 dose in hospital, will hold. Echo done July 2022 EF of 61% Repeat echo pending. Urinary retention History of BPH s/p TURP S/p Christian in ER urology consult- appreciate recs for christian use and voiding trial before discharge. Ambulatory dysfunction PT OT History of DVT History of PE On Coumadin Monitor PT/INR History of hereditary hemochromatosis Gets phlebotomy as needed Diet: HH DVT prophylaxis: on Coumadin CODE STATUS: Full code Dispo: currently med/surg with tele, consider PCU/tele if heart block confirmed by cardiology. (2) Ambulatory dysfunction: Admission and Anticipated Discharge Date Admission Date: March 15, 2023 Subjective Pt seen this AM, called to the room after having an acute episode of dizziness. BP at that time per nursing was 69/44, later went up to 80s/50s while in the room. Sitting at the bedside, mentating well but closing his eyes, emesis bucket in his lap. States that he had another episode of dizziness that started after getting out of bed. Had also just taken his toprol medication. States that he did not sleep well all night, concerned about hip pain. Also concerned about an upcoming surgery and missing an appointment today for further clearance. Review of Systems Review of Systems: All systems reviewed & are unremarkable except as noted in Subjective Physical Exam Physical Exam: General: Alert, oriented. Sitting with eyes closed. Psych: Appropriate mood and affect Neuro: difficulty hearing, sitting with HEENT: NC/AT, PERRLA, EOMI, oropharynx moist. Chest: Nontender to palpation. CV: RRR, Normal s1, s2. No murmurs appreciated Resp: Breath sounds clear bilaterally, no increased effort of breathing. No crackles/rhonchi/rales. Abdomen: BS+. Soft, nontender, nondistended. No guarding. No organomegaly appreciated. Extremities: No edema in lower extremities bilaterally. Results & Data Results & Data Vital Signs (Past 12 Hours) Vital Signs Temp Pulse Pulse Resp BP Pulse Ox O2 Del Method 03/16/23 07:41 36.3 C L 61 20 153/77 H 99 Room Air 03/16/23 07:36 60 03/16/23 01:08 55 L 03/15/23 23:56 36.5 C 51 L 18 135/79 98 Room Air 03/15/23 20:57 64
[2023-03-16] MEDS ORDERED: METOPROLOL SUCC 25MG EXT REL TAB PO SCH (09:00)
[2023-03-16] MEDS ORDERED: PERFLUTREN LIPID MICROSPHERE (DEFINITY) IV ONE (11:06)
--- NOTE | 2023-03-16 12:13 | Cardiology Consultation ---
Date of Consultation March 16, 2023 Assessment & Plan (1) Dizziness: (2) Accelerated junctional rhythm: (3) Urinary retention: (4) Hemochromatosis: (5) Paroxysmal SVT (supraventricular tachycardia): Plan Patient is an 82-year-old male with cardiac uses of paroxysmal atrial arrhythmias, chronic hemochromatosis with preserved LV systolic function who presents with acute symptoms of dizziness and vertiginous complaints Mild orthostasis on presentation and this morning Telemetry with transient accelerated junctional rhythm no high degree AV block or bradycardia Transient arrhythmia secondary to hypotension and orthostasis. Vertiginous complaints do not appear cardiac in etiology Recommendations: Stop digoxin Hold metoprolol with likely resumption at lower dose in a.m. Continue telemetry additional 24 hours Treat underlying issues including urinary retention and vertigo History of Present Illness Reason for Consultation: Dizziness Requesting Physician: Dr Alcaraz Attending Physician: Samantha Alcaraz MD History of Present Illness Patient is an 82-year-old male with ongoing cardiac issues as per outpatient record 1. PSVT 2. Asymptomatic PACs 3. Aortic root/ascending aortic dilatation 4. History of TIA 5. Carotid artery ectasia 6. Hypertension 7. Dyslipidemia 8. Family history of premature CAD 9. Hereditary hemochromatosis with intermittent phlebotomy 10. Prior DVT pulmonary emboli Patient presents this admission with episodic dizziness, generalized malaise beginning approximately 3 days prior to admission. Notes having a flu shot approximately 2 days prior to complaints. Symptoms described as nausea and vertiginous complaints with episodes of emesis., Room spinning symptoms waxed and waned beginning initially Monday approximately 1:30 AM before ultimate presentation on Monday evening No chest pains, shortness of breath. Poor p.o. intake in the interim though taking medications. No sense of tachypalpitations fevers or chills. Noted to have urinary retention urinary catheter placed with 1.5 L diuresis last night This morning when standing dizzy and lightheaded. Review of telemetry noted transient accelerated junctional rhythm. No pauses or bradycardia rhythm No prior history of syncope or near syncope. No recent tachyarrhythmias on 2 drugs with metoprolol and digoxin. Weight per patient has been stable He undergoes routine phlebotomy for chronic hemochromatosis depending on hemoglobin level. No bleeding Allergies Allergy/AdvReac Type Severity Reaction Status Date / Time vancomycin Allergy Mild red, itchy Verified 03/01/23 10:04 Sulfa (Sulfonamide Allergy Unknown "Everyone Verified 03/01/23 10:04 Antibiotics) in family" Home Medications Medication Instructions Recorded Confirmed Type azelastine 137 mcg (0.1 %) nasal 2 spray intranasal UD PRN Nasal 10/01/18 03/14/23 History spray aerosol Congestion cholecalciferol (vitamin D3) 125 5,000 unit PO QAM 10/01/18 03/14/23 History mcg (5,000 unit) tablet (Vitamin D3) digoxin 125 mcg (0.125 mg) tablet 125 mcg PO HS 10/01/18 03/14/23 History (Digox) fluticasone propionate 50 2 spray intranasal QAM PRN 10/01/18 03/14/23 History mcg/actuation nasal Congestion spray,suspension (Flonase Allergy Relief) furosemide 40 mg tablet (Lasix) 40 mg PO QAM PRN Edema 10/01/18 03/14/23 History krill 1,000 mg-omega-3 170 mg-dha 1 cap PO QAM 10/01/18 03/14/23 History 50 mg-epa 80 py-sttxyn-idaek capsule (krill oil) magnesium oxide 400 mg PO QAM 10/01/18 03/14/23 History metoprolol tartrate 25 mg tablet 12.5 mg PO BID 10/01/18 03/14/23 History quinine sulfate 324 mg capsule 324 mg PO HS PRN leg cramping 10/01/18 03/14/23 History (Qualaquin) warfarin 5 mg tablet (Jantoven) 5 - 7.5 mg PO UD 10/01/18 03/14/23 History acetaminophen 500 mg tablet 500 mg PO Q6H PRN Pain 01/21/22 03/14/23 History albuterol 90 mcg/actuation aerosol 90 mcg inhalation Q6H PRN 01/21/22 03/14/23 History inhaler shortness of breath, wheezing baclofen 10 mg tablet 10 mg PO BID PRN muscle spasms 01/21/22 03/14/23 History cyanocobalamin (vitamin B-12) 5,000 mcg sublingual QAM 01/21/22 03/14/23 History 5,000 mcg sublingual tablet (Vitamin B-12) folic acid 1 mg tablet 1 mg PO QAM 01/21/22 03/14/23 History Zetia See Rx Instructions .Route .COMPLEX 03/14/23 03/14/23 History Patient History Medical History Aortic root dilatation Moderately enlarged, unchanged compared to 02/04/2020 (per 11/09/20 DSE report) Basal cell carcinoma of nose hx Carotid artery disease B/L ICA stenosis < 50% Deep vein thrombosis LLE DVT (2011); f/u coag clinic [facility] Dyslipidemia GERD (gastroesophageal reflux disease) Controlled Hearing deficit No aids Hemochromatosis Hereditary hemochromatosis, phlebotomy q6 months per GI (most recent 08/2020 per GI), (per PCP 12/2020, recent transferrin level WNL) History of anesthesia reaction when I had sx in [place] "I had hallucinations and had to see the eye doctor following because I was seeing crazy things." Hyperlipidemia Hypertension Osteoarthritis Paroxysmal SVT (supraventricular tachycardia) Follows with [facility] Pulmonary embolism Post-op (2011) TIA (transient ischemic attack) TIA (2014/no evidence of CVA on MRI per PCP records) Surgical History H/O left knee surgery H/O nasal polypectomy History of back surgery x6 (including rods/screws) History of colonoscopy History of esophagogastroduodenoscopy (EGD) History of [place] [facility] [place] 1, glidescope 3, ETT 7.5 at [facility] History of reverse total replacement of right shoulder joint History of right cataract surgery History of tooth extraction History of total right hip replacement Hx of basal cell carcinoma excision Hx of cholecystectomy Status post Mohs surgery for basal cell carcinoma Family History Brother Family hx colonic polyps Other No family history of adverse response to anesthesia Social History Smoking Status: Never smoker Second Hand Exposure: No; Do You Dip or Chew Tobacco: No; Hx Alcohol Use: No Hx Substance Use: No Preferred Language: Marshallese Communication Ability: Effective Easement Worker Required: No Beliefs That Will Affect Care: None Current Living Situation: Spouse current occupational status: retired Feels Safe at Home: Yes Safety Concerns: Feels Safe At This Time Assistive Devices: Denture - Upper and Nebulizer Review of Systems Review of Systems: All systems reviewed & are unremarkable except as noted in HPI & below Physical Exam Constitutional: + thin; no acute distress Eyes: PERRL, conjunctivae normal, anicteric sclerae ENMT: external ear and nose normal, oropharynx normal Neck: trachea midline, no thyromegaly Respiratory: normal respiratory effort, lungs clear to auscultation Cardiovascular: RRR, no murmur, no edema Gastrointestinal (Abdomen): normal bowel sounds, soft, nontender, no hepatosplenomegaly Musculoskeletal: no cyanosis or clubbing, extremities motor strength 5/5 Results & Data Vital Signs (Past 12 Hours) Vital Signs Temp Pulse Pulse Resp BP Pulse Ox O2 Del Method 03/16/23 11:30 35.8 C L 62 18 146/67 H 99 Room Air 03/16/23 09:58 55 L 18 92/54 L 98 Room Air 03/16/23 09:40 52 L 18 88/50 L 97 Room Air 03/16/23 09:30 50 L 18 69/44 L 97 Room Air 03/16/23 07:41 36.3 C L 61 20 153/77 H 99 Room Air 03/16/23 07:36 60 03/16/23 01:08 55 L Laboratory Results Laboratory Results - last 24 hr 03/16/23 03/16/23 03/16/23 05:14 05:14 05:14 WBC 3.92 L RBC 4.82 Hgb 14.7 Hct 43.0 MCV 89.2 MCH 30.5 MCHC 34.2 RDW Std Deviation 45.2 RDW Coeff of Alex 13.9 Plt Count 104 L MPV 9.5 Immature Gran % (Auto) 0.3 Neut % (Auto) 58.1 Lymph % (Auto) 16.1 [place] % (Auto) 18.1 Eos % (Auto) 6.9 Baso % (Auto) 0.5 Neut # (Auto) 2.28 Lymph # (Auto) 0.63 L [place] # (Auto) 0.71 H Eos # (Auto) 0.27 Baso # (Auto) 0.02 Immature Gran # (Auto) 0.01 PT 21.4 H INR 2.0 H Sodium 137 Potassium 4.7 Chloride 100 Carbon Dioxide 34 H Anion Gap 3 BUN 17 Creatinine 1.13 Est Cr Clr Drug Dosing 56.6 Est GFR ( Amer) 69.8 Est GFR (Non-Af Amer) 60.2 BUN/Creatinine Ratio 15.0 Glucose 84 POC Glucose Calcium 9.2 Magnesium 1.9 03/16/23 09:23 WBC RBC Hgb Hct MCV MCH MCHC RDW Std Deviation RDW Coeff of Alex Plt Count MPV Immature Gran % (Auto) Neut % (Auto) Lymph % (Auto) [place] % (Auto) Eos % (Auto) Baso % (Auto) Neut # (Auto) Lymph # (Auto) [place] # (Auto) Eos # (Auto) Baso # (Auto) Immature Gran # (Auto) PT INR Sodium Potassium Chloride Carbon Dioxide Anion Gap BUN Creatinine Est Cr Clr Drug Dosing Est GFR ( Amer) Est GFR (Non-Af Amer) BUN/Creatinine Ratio Glucose POC Glucose 187 H Calcium Magnesium
--- NOTE | 2023-03-16 12:49 | Electrocardiogram Report ---
Test Reason : Blood Pressure : / mmHG Vent. Rate : 061 BPM Atrial Rate : 061 BPM P-R Int : 134 ms QRS Dur : 104 ms QT Int : 422 ms P-R-T Axes : 071 -69 067 degrees QTc Int : 424 ms Poor data quality, interpretation may be adversely affected Sinus rhythm with Premature atrial complexes Left anterior fascicular block Abnormal ECG When compared with ECG of 14-MAR-2023 17:16, No significant change in comparable leads Confirmed by Jamel Cottrell ([id number]) on 03/16/2023 12:49:01 PM Referred By: REFERRED SELF Confirmed By:Jamel Cottrell
[2023-03-16] MEDS: WARFARIN SOD 5 MG TAB PO SCH (16:49)
[2023-03-16] MEDS: MECLIZINE HCL 25 MG TAB PO PRN (21:16)
[2023-03-17 06:05] LABS: Basophils # (auto) 0.02 K/uL (0.00-0.20); Basophils % (auto) 0.4 %; Eosinophils # (auto) 0.25 K/uL (0.00-0.50); Eosinophils % (auto) 5.6 %; Hematocrit (blood only) 40.5 % (42.0-52.0); Hemoglobin 14.4 g/dl (14.0-18.0); Immature Granulocytes # (auto) 0.01 K/uL (0.01-0.20); Immature Granulocytes % (auto) 0.2 %; Lymphocytes # (auto) 0.66 K/uL (1.20-3.40); Lymphocytes % (auto) 14.8 %; Mean Corpuscular Hgb Conc 35.6 g/dL (32.0-36.0); Mean Corpuscular Volume 87.1 fL (80.0-100.0); Mean Platelet Volume 9.4 fL (9.4-12.4); Monocytes % (auto) 17.9 %; Neutrophils # (auto) 2.73 K/uL (1.40-6.50); Neutrophils % (auto) 61.1 %; Platelet Count 111 K/uL (130-400); RDW Coefficient of Variation 13.9 % (11.5-14.5); RDW Standard Deviation 44.3 fL (36.4-46.3); Red Blood Count 4.65 M/uL (4.70-6.10); White Blood Count 4.47 K/ul (4.8-10.8)
[2023-03-17 06:12] LABS: BUN Creatinine Ratio 24.3 (10-20); Calcium 8.9 mg/dl (8.6-10.3); Creatinine Clr Calc Pharmacy 62.1 ml/min; Est GFR (Non-African American) 67.3 ml/min; Magnesium 1.9 mg/dl (1.7-2.4); Phosphorus 3.3 mg/dl (2.5-4.9); Potassium 4.1 mmol/L (3.5-5.1)
[2023-03-17 06:17] LABS: INR 1.9 (0.9-1.1); Prothrombin Time 20.3 Seconds (9.0-12.0)
--- NOTE | 2023-03-17 07:52 | Electrocardiogram Report ---
Test Reason : Blood Pressure : / mmHG Vent. Rate : 061 BPM Atrial Rate : 061 BPM P-R Int : 144 ms QRS Dur : 104 ms QT Int : 420 ms P-R-T Axes : 088 -67 062 degrees QTc Int : 422 ms Sinus rhythm with Premature atrial complexes Left anterior fascicular block Abnormal ECG When compared with ECG of 16-MAR-2023 10:22, No significant change was found Confirmed by Jamel Cottrell ([id number]) on 03/17/2023 7:52:40 AM Referred By: REFERRED SELF Confirmed By:Jamel Cottrell
[2023-03-17] MEDS: CHOLECALCIFEROL 5,000 UNITS 125 MCG TAB PO SCH (08:51)
[2023-03-17] MEDS: MECLIZINE HCL 25 MG TAB PO PRN (08:51)
[2023-03-17] MEDS: MAGNESIUM OXIDE 400 MG TAB PO SCH (08:52)
[2023-03-17] MEDS: CYANOCOBALAMIN (B-12) 2,500 MCG TABLET SL SCH (08:52)
[2023-03-17] MEDS: FOLIC ACID 1 MG TAB PO SCH (08:52)
--- NOTE | 2023-03-17 10:56 | Cardiology Progress Note ---
Date of Service March 17, 2023 Assessment & Plan (1) Dizziness: (2) Accelerated junctional rhythm: (3) Urinary retention: (4) Hemochromatosis: (5) Paroxysmal SVT (supraventricular tachycardia): Plan Patient is an 82-year-old male with cardiac uses of paroxysmal atrial arrhy thmias, chronic hemochromatosis with preserved LV systolic function who presents with acute symptoms of dizziness and vertiginous complaints Mild orthostasis on presentation and this morning Telemetry with transient accelerated junctional rhythm no high degree AV block or bradycardia Transient arrhythmia secondary to hypotension and orthostasis. Vertiginous complaints do not appear cardiac in etiology Recommendations: Stop digoxin Hold metoprolol with likely resumption at lower dose in a.m. Continue telemetry additional 24 hours Treat underlying issues including urinary retention and vertigo 03/17/2023 Improved though blood pressure still soft No bradycardia or arrhythmias on telemetry Recommendations: Increase activities with ambulation check orthostatic blood pressures continue to hold metoprolol, digoxin Admission and Anticipated Discharge Date Admission Date: March 15, 2023 Subjective Patient seen and examined, chart, medications, telemetry reviewed No further arrhythmias on telemetry Patient feels improved since hospitalization. Comfortable with King catheter in place Has not ambulated No chest pain or shortness of breath Still occasionally dizzy on turning of head but vertigo complaints improve Echocardiogram moderate left ventricular hypertrophy with normal LV systolic function, aortic sclerosis, mild aortic root dilatation not significant change from prior study Physical Exam Constitutional: + thin; no acute distress Eyes: PERRL, conjunctivae normal, anicteric sclerae ENMT: external ear and nose normal, oropharynx normal Neck: trachea midline, no thyromegaly Respiratory: normal respiratory effort, lungs clear to auscultation Cardiovascular: RRR, no murmur, no edema Gastrointestinal (Abdomen): normal bowel sounds, soft, nontender, no hepatosplenomegaly Musculoskeletal: no cyanosis or clubbing, extremities motor strength 5/5 Results & Data Vital Signs (Past 12 Hours) Vital Signs Temp Pulse Resp BP Pulse Ox Pulse Ox O2 Del Method 03/17/23 10:09 99 03/17/23 08:21 36.6 C 75 19 91/57 L 97 Room Air 03/17/23 03:51 36.4 C L 58 L 18 133/67 97 Room Air 03/17/23 01:00 95 Laboratory Results Laboratory Results - last 24 hr 03/17/23 03/17/23 03/17/23 05:14 05:14 05:14 WBC 4.47 L RBC 4.65 L Hgb 14.4 Hct 40.5 L MCV 87.1 MCH 31.0 MCHC 35.6 RDW Std Deviation 44.3 RDW Coeff of Alex 13.9 Plt Count 111 L MPV 9.4 Immature Gran % (Auto) 0.2 Neut % (Auto) 61.1 Lymph % (Auto) 14.8 [place] % (Auto) 17.9 Eos % (Auto) 5.6 Baso % (Auto) 0.4 Neut # (Auto) 2.73 Lymph # (Auto) 0.66 L [place] # (Auto) 0.80 H Eos # (Auto) 0.25 Baso # (Auto) 0.02 Immature Gran # (Auto) 0.01 PT 20.3 H INR 1.9 H Sodium 138 Potassium 4.1 Chloride 104 Carbon Dioxide 29 Anion Gap 5 BUN 25 H Creatinine 1.03 Est Cr Clr Drug Dosing 62.1 Est GFR ( Amer) 78.0 Est GFR (Non-Af Amer) 67.3 BUN/Creatinine Ratio 24.3 H Glucose 87 Calcium 8.9 Phosphorus 3.3 Magnesium 1.9
[2023-03-17] MEDS: WARFARIN SOD 5 MG TAB PO SCH (17:53)
[2023-03-17] MEDS: traMADol HCL 50 MG TABLET PO PRN (21:51)
[2023-03-17] MEDS: BACLOFEN 10 MG TAB PO PRN (21:51)
--- NOTE | 2023-03-17 22:26 | Hospitalist Progress Note ---
Date of Service March 17, 2023 Assessment & Plan (1) Dizziness: Plan: 82-year-old male with past medical significant for hereditary hematochromatosis, hyperlipidemia, paroxysmal SVT, carotid artery aneurysm, aortic root dilatation, hypertension, GERD, BPH, osteoarthritis, history of PE, history of TIA, history of DVT, s/p TURP of prostate admitted with intractable dizziness, nausea, blurred vision and weakness. Dizziness Blurred vision Questionable diplopia earlier in the week of presentation CT head and brain MRI without acute changes. EKG on admission with possible left anterior fascicular block. Orthostatics unremarkable. Med-tele monitoring. 03/16- episode of dizziness acutely in pt's room with pt's BP noted to be 69/44. Per telemetry, pt was in junctional rhythm, possible block. Hold Toprol and lasix, Stat EKG and echo ordered, Cardiology consult placed. Pt also concerned he might need cardiology clearance for upcoming elective knee surgery. Was scheduled for appt today. 03/17- Cardiology advising dizzy episodes are noncardiac in nature, holding home digoxin and metoprolol. Pt noting improvement in symptoms but not comfortable going home yet. Worked with PT/OT, advising limited cervical ROM for Kassidy maneuvers. Advising home with home health/PT services and pt's continued use of walker at home. History of paroxysmal SVT/HTN Received a dose of home metoprolol before acute dizzy episode on 03/16. Will hold. Cardiology consult as above for further recs. Lower extremity edema On Lasix as needed at home, received 1 dose in hospital, will hold. Echo done July 2022 EF of 61% Repeat echo pending. Urinary retention History of BPH s/p TURP S/p Christian in ER urology consult- appreciate recs for christian use and voiding trial before discharge. Ambulatory dysfunction PT OT History of DVT History of PE On Coumadin Monitor PT/INR History of hereditary hemochromatosis Gets phlebotomy as needed Diet: HH DVT prophylaxis: on Coumadin CODE STATUS: Full code Dispo: home with home health/PT services (2) Ambulatory dysfunction: Admission and Anticipated Discharge Date Admission Date: March 15, 2023 Subjective Pt states that he felt winded after PT, and nauseated. Stated that he needed to eat a cookie and drink coffee. Had Kassidy maneuver done. Does not feel like he could be discharged today. Review of Systems Review of Systems: All systems reviewed & are unremarkable except as noted in Subjective Physical Exam Physical Exam: General: Alert, oriented. Psych: Appropriate mood and affect Neuro: difficulty hearing HEENT: NC/AT Chest: Nontender to palpation. CV: RRR, Normal s1, s2. No murmurs appreciated Resp: Breath sounds clear bilaterally, no increased effort of breathing. Abdomen: Soft, nontender, nondistended. Extremities: No edema in lower extremities bilaterally. Results & Data Results & Data Vital Signs (Past 12 Hours) Vital Signs Temp Pulse Resp BP BP Pulse Ox O2 Del Method 03/17/23 19:51 36.8 C 74 18 121/71 97 Room Air 03/17/23 17:03 36.5 C 79 19 92/57 L 96 Room Air 03/17/23 10:42 36.8 C 78 18 125/71 99 Room Air
[2023-03-18 08:02] LABS: Basophils # (auto) 0.03 K/uL (0.00-0.20); Basophils % (auto) 0.7 %; Eosinophils # (auto) 0.29 K/uL (0.00-0.50); Eosinophils % (auto) 6.3 %; Hematocrit (blood only) 45.3 % (42.0-52.0); Hemoglobin 15.4 g/dl (14.0-18.0); Immature Granulocytes # (auto) 0.02 K/uL (0.01-0.20); Immature Granulocytes % (auto) 0.4 %; Lymphocytes # (auto) 0.95 K/uL (1.20-3.40); Lymphocytes % (auto) 20.7 %; Mean Corpuscular Hemoglobin 30.7 pg (25.0-34.0); Mean Corpuscular Volume 90.4 fL (80.0-100.0); Mean Platelet Volume 9.6 fL (9.4-12.4); Monocytes # (auto) 0.85 K/uL (0.11-0.59); Monocytes % (auto) 18.6 %; Neutrophils # (auto) 2.44 K/uL (1.40-6.50); Neutrophils % (auto) 53.3 %; Platelet Count 144 K/uL (130-400); RDW Standard Deviation 46.6 fL (36.4-46.3); Red Blood Count 5.01 M/uL (4.70-6.10); White Blood Count 4.58 K/ul (4.8-10.8)
[2023-03-18 08:20] LABS: BUN Creatinine Ratio 23.4 (10-20); Calcium 9.2 mg/dl (8.6-10.3); Creatinine Clr Calc Pharmacy 58.9 ml/min; Est GFR (African American) 74.5 ml/min; Est GFR (Non-African American) 64.3 ml/min; Phosphorus 3.5 mg/dl (2.5-4.9); Potassium 4.5 mmol/L (3.5-5.1)
[2023-03-18 08:25] LABS: INR 1.8 (0.9-1.1); Prothrombin Time 19.2 Seconds (9.0-12.0)
[2023-03-18] MEDS: CYANOCOBALAMIN (B-12) 2,500 MCG TABLET SL SCH (09:36)
[2023-03-18] MEDS: MAGNESIUM OXIDE 400 MG TAB PO SCH (09:36)
[2023-03-18] MEDS: FOLIC ACID 1 MG TAB PO SCH (09:36)
[2023-03-18] MEDS: CHOLECALCIFEROL 5,000 UNITS 125 MCG TAB PO SCH (09:36)
--- NOTE | 2023-03-18 11:59 | Cardiology Progress Note ---
Date of Service March 18, 2023 Assessment & Plan (1) Dizziness: (2) Accelerated junctional rhythm: (3) Urinary retention: (4) Hemochromatosis: (5) Paroxysmal SVT (supraventricular tachycardia): Plan Patient is an 82-year-old male with cardiac uses of paroxysmal atrial arrhy thmias, chronic hemochromatosis with preserved LV systolic function who presents with acute symptoms of dizziness and vertiginous complaints Telemetry with transient accelerated junctional rhythm and no high degree AV block or bradycardia Transient arrhythmia secondary to hypotension and orthostasis. Vertiginous complaints do not appear cardiac in etiology Recommendations: Stop digoxin Continue to hold metoprolol, but will likely resume on 03/19/23. Continue telemetry additional 24 hours Treat underlying issues including urinary retention and vertigo Pt has upcoming knee surgery planned. Will need to reassess candidacy for this as stay develops. Admission and Anticipated Discharge Date Admission Date: March 15, 2023 Subjective Mr Gramajo is seen in follow up. Notes feeling improved. Denies chest pain or shortness of breath. Telemetry reveals SR in the 60s to 70s with occasional PACs. Physical Exam Constitutional: + thin; no acute distress Eyes: PERRL, conjunctivae normal, anicteric sclerae ENMT: external ear and nose normal, oropharynx normal Neck: trachea midline, no thyromegaly Respiratory: normal respiratory effort, lungs clear to auscultation Cardiovascular: RRR, no murmur, no edema Gastrointestinal (Abdomen): normal bowel sounds, soft, nontender, no hepatosplenomegaly Musculoskeletal: no cyanosis or clubbing, extremities motor strength 5/5 Results & Data Vital Signs (Past 12 Hours) Vital Signs Temp Pulse Pulse Resp BP Pulse Ox Pulse Ox 03/18/23 11:37 36.9 C 61 18 101/63 98 03/18/23 07:01 36.5 C 68 19 137/73 98 03/18/23 03:05 36.7 C 78 16 106/64 98 03/18/23 02:11 03/18/23 01:00 96 O2 Del Method O2 Del Method 03/18/23 11:37 Room Air 03/18/23 07:01 Room Air 03/18/23 03:05 Room Air 03/18/23 02:11 Room Air 03/18/23 01:00 Room Air
[2023-03-18] MEDS ORDERED: WARFARIN SOD 7.5 MG TAB PO SCH (16:00)
--- NOTE | 2023-03-18 16:53 | Hospitalist Progress Note ---
Date of Service March 18, 2023 Assessment & Plan (1) Dizziness: Plan: 82-year-old male with past medical significant for hereditary hematochromatosis, hyperlipidemia, paroxysmal SVT, carotid artery aneurysm, aortic root dilatation, hypertension, GERD, BPH, osteoarthritis, history of PE, history of TIA, history of DVT, s/p TURP of prostate admitted with intractable dizziness, nausea, blurred vision and weakness. Dizziness Blurred vision Questionable diplopia earlier in the week of presentation CT head and brain MRI without acute changes. EKG on admission with possible left anterior fascicular block. Orthostatics unremarkable. Med-tele monitoring. 03/16- episode of dizziness acutely in pt's room with pt's BP noted to be 69/44. Per telemetry, pt was in junctional rhythm, possible block. Hold Toprol and lasix, Stat EKG and echo ordered, Cardiology consult placed. Pt also concerned he might need cardiology clearance for upcoming elective knee surgery. Was scheduled for appt today. 03/17- Cardiology advising dizzy episodes are noncardiac in nature, holding home digoxin and metoprolol. Pt noting improvement in symptoms but not comfortable going home yet. Worked with PT/OT, advising limited cervical ROM for Kassidy maneuvers. Advising home with home health/PT services and pt's continued use of walker at home. 03/18- Pt ambulating with PT. Pt and daughter stating not stable enough for discharge home today. Had trial void, christian back in. History of paroxysmal SVT/HTN Received a dose of home metoprolol before acute dizzy episode on 03/16. Will hold. Cardiology consult as above for further recs. Lower extremity edema On Lasix as needed at home, received 1 dose in hospital, will hold. Echo done July 2022 EF of 61% Repeat echo pending. Urinary retention History of BPH s/p TURP S/p Christian in ER urology consult- appreciate recs for christian use and voiding trial before discharge. Ambulatory dysfunction PT OT History of DVT History of PE On Coumadin Monitor PT/INR History of hereditary hemochromatosis Gets phlebotomy as needed Diet: HH DVT prophylaxis: on Coumadin CODE STATUS: Full code Dispo: home with home health/PT services (2) Ambulatory dysfunction: Admission and Anticipated Discharge Date Admission Date: March 15, 2023 Subjective Seen multiple times. States that he does not feel stable enough to go home. Daughter who visited also expressing the same. Worked with PT. Had trial void. Review of Systems Review of Systems: All systems reviewed & are unremarkable except as noted in Subjective Physical Exam Physical Exam: General: Alert, oriented. Psych: Appropriate mood and affect Neuro: difficulty hearing HEENT: NC/AT Chest: Nontender to palpation. CV: RRR, Normal s1, s2. No murmurs appreciated Resp: Breath sounds clear bilaterally, no increased effort of breathing. Abdomen: Soft, nontender, nondistended. Extremities: No edema in lower extremities bilaterally. Results & Data Results & Data Vital Signs (Past 12 Hours) Vital Signs Temp Pulse Pulse Resp BP BP Pulse Ox 03/18/23 16:25 36.8 C 68 16 129/63 99 03/18/23 14:55 72 118/66 03/18/23 11:37 36.9 C 61 18 101/63 98 03/18/23 07:01 36.5 C 68 19 137/73 98 O2 Del Method 03/18/23 16:25 Room Air 03/18/23 14:55 03/18/23 11:37 Room Air 03/18/23 07:01 Room Air
[2023-03-18] MEDS: BACLOFEN 10 MG TAB PO PRN (20:38)
[2023-03-18] MEDS ORDERED: WARFARIN SOD 5 MG TAB PO ONE (21:29)
[2023-03-18] MEDS: ACETAMINOPHEN 325 MG TAB PO PRN (21:57)
[2023-03-19 07:29] LABS: Basophils # (auto) 0.02 K/uL (0.00-0.20); Basophils % (auto) 0.5 %; Eosinophils % (auto) 7.2 %; Hematocrit (blood only) 41.9 % (42.0-52.0); Hemoglobin 14.7 g/dl (14.0-18.0); Immature Granulocytes # (auto) 0.02 K/uL (0.01-0.20); Immature Granulocytes % (auto) 0.5 %; Lymphocytes # (auto) 0.58 K/uL (1.20-3.40); Lymphocytes % (auto) 13.8 %; Mean Corpuscular Hemoglobin 31.1 pg (25.0-34.0); Mean Corpuscular Hgb Conc 35.1 g/dL (32.0-36.0); Mean Corpuscular Volume 88.6 fL (80.0-100.0); Mean Platelet Volume 9.4 fL (9.4-12.4); Monocytes # (auto) 0.87 K/uL (0.11-0.59); Monocytes % (auto) 20.8 %; Neutrophils % (auto) 57.2 %; Platelet Count 112 K/uL (130-400); RDW Coefficient of Variation 13.7 % (11.5-14.5); RDW Standard Deviation 44.7 fL (36.4-46.3); Red Blood Count 4.73 M/uL (4.70-6.10); White Blood Count 4.19 K/ul (4.8-10.8)
[2023-03-19 07:56] LABS: BUN Creatinine Ratio 24.4 (10-20); Creatinine Clr Calc Pharmacy 71.5 ml/min; Est GFR (African American) 91.9 ml/min; Est GFR (Non-African American) 79.3 ml/min; Phosphorus 3.2 mg/dl (2.5-4.9); Potassium 4.2 mmol/L (3.5-5.1)
[2023-03-19 07:59] LABS: INR 2.2 (0.9-1.1); Prothrombin Time 23.4 Seconds (9.0-12.0)
[2023-03-19] MEDS: CHOLECALCIFEROL 5,000 UNITS 125 MCG TAB PO SCH (09:05)
[2023-03-19] MEDS: FOLIC ACID 1 MG TAB PO SCH (09:05)
[2023-03-19] MEDS: MAGNESIUM OXIDE 400 MG TAB PO SCH (09:05)
[2023-03-19] MEDS: CYANOCOBALAMIN (B-12) 2,500 MCG TABLET SL SCH (09:05)
[2023-03-19] MEDS ORDERED: METOPROLOL TARTRATE 25 MG TAB PO SCH (11:45)
--- NOTE | 2023-03-19 11:47 | Cardiology Progress Note ---
Date of Service March 19, 2023 Assessment & Plan (1) Dizziness: (2) Accelerated junctional rhythm: (3) Urinary retention: (4) Hemochromatosis: (5) Paroxysmal SVT (supraventricular tachycardia): Plan Patient is an 82-year-old male with cardiac uses of paroxysmal atrial arrhy thmias, chronic hemochromatosis with preserved LV systolic function who presents with acute symptoms of dizziness and vertiginous complaints EKG performed 03/16/23 revealed SR at 61 bmp with PACs, LAFB, normal ST segments. Echo this admission without acute changes, normal LVEF, 55-60%. Recommendations: Resume BUSINESS UNIT DIRECTOR metoprolol and digoxin. Plans upcoming left knee replacement on 04/12/23. Tolerated rotator cuff repair well from a cardiology perspective in 2020 with non ischemic dobutamine stress echo at that time. Pt stable from cardiac perspective to proceed with knee replacement, however, n eed to take urination retention history into account as I anticipate DC with indwelling King catheter. Admission and Anticipated Discharge Date Admission Date: March 15, 2023 Subjective Patient seen in follow up. Sinus rhythm in the 70s with occasional PACs noted. He feels well. Slept well last evening. Physical Exam Constitutional: + thin; no acute distress Eyes: PERRL, conjunctivae normal, anicteric sclerae ENMT: external ear and nose normal, oropharynx normal Neck: trachea midline, no thyromegaly Respiratory: normal respiratory effort, lungs clear to auscultation Cardiovascular: RRR, no murmur, no edema Gastrointestinal (Abdomen): normal bowel sounds, soft, nontender, no hepatosplenomegaly Musculoskeletal: no cyanosis or clubbing, extremities motor strength 5/5 Results & Data Vital Signs (Past 12 Hours) Vital Signs Temp Pulse Pulse Resp BP Pulse Ox O2 Del Method 03/19/23 11:25 36.9 C 84 20 102/69 98 Room Air 03/19/23 09:00 Room Air 03/19/23 07:43 36.6 C 79 20 127/75 96 Room Air 03/19/23 07:20 78 03/19/23 02:51 36.5 C 65 16 133/69 96 Room Air 03/18/23 23:45 78
--- NOTE | 2023-03-19 11:52 | Discharge Summary ---
Discharge Summary Date of Service March 19, 2023 Notes For Next Care Provider -[facility] follow up as soon as possible for indwelling christian -Home PT for dizziness Medication Changes From Visit None Admission HPI Per Admitting Provider 82-year-old male with past medical significant for hereditary hematochromatosis, hyperlipidemia, paroxysmal SVT, carotid artery aneurysm, aortic root dilatation, hypertension, GERD, BPH, osteoarthritis, history of PE, history of TIA, history of DVT, s/p TURP of prostate presents with dizziness, nausea, blurred vision and weakness. Patient states he had flu vaccine last Monday. Since Monday responder 1:30 AM he developed nausea, dizziness, blurred vision and questionable diplopia and weakness in the legs and having ambulatory dysfunction. Monday afternoon symptoms seem to be improved but again they got worse and came to ER. In the ER he was having ambulatory dysfunction requiring assistance to ambulate. At home he generally ambulates without support but only in the nighttime uses walker. Has some headache. Has some runny nose and cough. No sore throat. Appetite is down. No dysphagia. No chest pain or shortness of breath. No abdominal pain. Bowels moving okay. Was having trouble micturating in the ER and was placed on Christian and drained about 1 L of urine. Hemodynamically stable Past medical history as mentioned above Past surgical history. Colonoscopy, EGD, left knee arthroscopy, laparoscopic cholecystectomy, back surgeries, removal of nasal polyps, TURP, right total hip replacement, Social history. no smoking. No alcohol. No drug use. Family history. Father had of CT at age 48. Brother had ureteral cancer. Brother has hypertension. Brother has Parkinson disease. Daughter has thyroid disorder. Son has thyroid disorder. Admission Exam Per Admitting Provider General- Not in distress Head- atraumatic Eyes- PERRL, EOMI, ENT- oropharynx clear Neck- supple, no JVD, carotids +2/2, no bruits appreciated Lungs- clear to auscultation , no wheezing or crackles. Heart- regular rhythm; no murmur, no gallop. Abdomen- normal bowel sounds, soft, nontender, no distension Extremities- nb/l lower extremity edema present. no erythema seen Neuro- alert, oriented x 3; PERRL, EOMI; no facial palsy; no dysarthria; motor 5/5 bilaterally; co ordination of movements normal, no pronator drift, sensations intact, position sense intact Skin- warm & dry Principal Dx & Hospital Course #1 = Principal Diagnosis (1) Dizziness: 82-year-old male with past medical significant for hereditary hematochromatosis, hyperlipidemia, paroxysmal SVT, carotid artery aneurysm, aortic root dilatation, hypertension, GERD, BPH, osteoarthritis, history of PE, history of TIA, history of DVT, s/p TURP of prostate admitted with intractable dizziness, nausea, blurred vision and weakness. Vertigo Dizziness Blurred vision Weakness Questionable diplopia earlier in the week of presentation. Labs unremarkable. CT head, brain MRI, carotid dopplers without acute changes. EKG with PACs and left anterior fascicular block. Echocardiogram from 03/16/23 with no acute changes, EF 55-60% Orthostatics grossly unremarkable. Telemetry monitoring noted an episode of a junctional rhythm on 03/16 with dizziness but no further events. Cardiology advised resuming home digoxin and metoprolol at discharge with no further medication changes. Worked with PT/OT who advised that pt had limited cervical ROM for Kassidy maneuvers. They further advised going home with home health/PT services and pt's continued use of walker at home. Pt missed his cardiology appointment for surgical clearance for an elective knee surgery on 04/12/23 since he was hospitalized. Per cardiology's note (Dr. Higgins): "Tolerated rotator cuff repair well from a cardiology perspective in 2020 with non ischemic dobutamine stress echo at that time. Pt stable from cardiac perspective to proceed with knee replacement, however, need to take urination retention history into account as I anticipate DC with indwelling Christian catheter." Pt failed void trial before discharge and was discharged home with a christian (see below). All symptoms resolved day of discharge except weakness. Pt discharged home with home health services including PT for further treatment. PCP followup recommended as well. Urinary retention History of BPH s/p TURP S/p Christian placement in the ER on admission. Void trial attempted on 03/18- pt voided about 200ml with bladder scan showing 371ml remaining Urology consulted- recommending discharge with christian in place if trial void failed and outpatient urology followup. Pt currently follows with [facility] in [place]. History of paroxysmal arrhythmias/HTN Resume home metoprolol and digoxin after discharge. Lower extremity edema On Lasix as needed at home Echo 03/16/23- with no acute changes, notes LVH, EF 55-60% Urinary retention History of BPH s/p TURP S/p Christian in ER urology consult- appreciate recs for christian use and voiding trial before discharge. Ambulatory dysfunction PT/OT History of DVT History of PE On Coumadin INR 2.2 on discharge History of hereditary hemochromatosis Gets phlebotomy as needed PCP followup (2) Ambulatory dysfunction: Discharge Exam General: Alert, oriented. Psych: Appropriate mood and affect Neuro: difficulty hearing and with movements HEENT: NC/AT Chest: Nontender to palpation. CV: RRR, Normal s1, s2. No murmurs appreciated Resp: Breath sounds clear bilaterally, no increased effort of breathing. Abdomen: Soft, nontender, nondistended. Extremities: No edema in lower extremities bilaterally. Updated Medication List Medication Instructions Recorded Confirmed Type azelastine 137 mcg (0.1 %) nasal 2 spray intranasal UD PRN Nasal 10/01/18 03/14/23 History spray aerosol Congestion cholecalciferol (vitamin D3) 125 5,000 unit PO QAM 10/01/18 03/14/23 History mcg (5,000 unit) tablet (Vitamin D3) digoxin 125 mcg (0.125 mg) tablet 125 mcg PO HS 10/01/18 03/14/23 History (Digox) fluticasone propionate 50 2 spray intranasal QAM PRN 10/01/18 03/14/23 History mcg/actuation nasal Congestion spray,suspension (Flonase Allergy Relief) furosemide 40 mg tablet (Lasix) 40 mg PO QAM PRN Edema 10/01/18 03/14/23 History krill 1,000 mg-omega-3 170 mg-dha 1 cap PO QAM 10/01/18 03/14/23 History 50 mg-epa 80 [id number] capsule (krill oil) magnesium oxide 400 mg PO QAM 10/01/18 03/14/23 History metoprolol tartrate 25 mg tablet 12.5 mg PO BID 10/01/18 03/14/23 History quinine sulfate 324 mg capsule 324 mg PO HS PRN leg cramping 10/01/18 03/14/23 History (Qualaquin) warfarin 5 mg tablet (Jantoven) 5 - 7.5 mg PO UD 10/01/18 03/14/23 History acetaminophen 500 mg tablet 500 mg PO Q6H PRN Pain 01/21/22 03/14/23 History albuterol 90 mcg/actuation aerosol 90 mcg inhalation Q6H PRN 01/21/22 03/14/23 History inhaler shortness of breath, wheezing baclofen 10 mg tablet 10 mg PO BID PRN muscle spasms 01/21/22 03/14/23 History cyanocobalamin (vitamin B-12) 5,000 mcg sublingual QAM 01/21/22 03/14/23 History 5,000 mcg sublingual tablet (Vitamin B-12) folic acid 1 mg tablet 1 mg PO QAM 01/21/22 03/14/23 History Hospital Stay Data Consultations 03/14/23 21:55 ED Decision to Admit Stat 03/15/23 08:00 Consult Urology Routine 03/16/23 09:54 Consult Cardiology Routine Diagnostic Imagining Performed 03/14/23 19:27 CT head/brain wo con Stat 03/15/23 00:41 MRI Brain [MR brain wo/w con] Urgent 03/15/23 16:10 US carotid doppler BI Routine Discharge Instructions Given to Patient (Per Discharging Provider) Mr. Gramajo, You were admitted with dizziness. You were seen by cardiology and they advise the following: -Continue with your home digoxin and metoprolol -Increase activities with ambulationand use of your home walker -that you are an acceptable risk for knee replacement surgery but concerned that your surgery might need to be postponed due to an infection risk by the indwelling christian catheter. Due to you retaining urine after urinating, we placed a christian catheter in you to help. Before discharge we took it out to see if you would be able to completely void on your own but unfortunately you did void but it was not complete and so the christian was replaced. You will be discharged with it but you will need to follow up with your urologist about this as soon as possible. You are scheduled to see your primary care provider on 03/23/23 and they can help you with your indwelling christian care/following up with urology as well. And finally, you are being discharged with home health services that include physical therapy services to help with your symptoms. Please keep follow up with your primary care provider as scheduled. It was truly a pleasure taking care of you during your time here. Total Time Total Time Spent Total Time Spent (In Minutes): >30 minutes Home Health Attestation I certify that this patient is under my care and that I, or a physicians ophthalmic medical assistant working with me, had a face to-face encounter that meets the [facility] [id number] encounter requirements with this patient. The encounter with the patient was in whole, or in part, for the following medical condition, which is the primary reason for home health care (list medical condition): [id number] I certify that, based on my findings, the following services are medically necessary home health services: My clinical findings support the need for the above services because: OT Assess ADL Status and Restore Function w ADLs PT Assessment for Endurance / Balance / Strength PT Eval for Safety and Mobility PT Eval for Safety, Gait Training, Assistive Devices PT Gait and Balance Training, Strengthening and Safety Skilled Nsg Assessment Further, I certify that my clinical findings support that this patient is homebound (i.e. absences from home require considerable and taxing effort and are for medical reasons or confucianist services or infrequently or of short dur ation when for other reasons) because: Supportive Aid - Walker Transportation Assistance/Unable to Leave Home Unassisted Certification for Home Health Services: Based on the above findings, I certify that this patient is confined to the home and needs intermittent usp care, physical therapy and/or speech therapy or continues to need occupational therapy. The patient is under my care, and I have initiated the establishment of the plan of care. This patient will be followed by a physician who will periodically review the plan of care.
== END 2023-03-19 14:23 | disposition home health service (06) | DRG 149 ==
LOC: ED 16:21 → SUATTDRO 03-15 00:05 → EDINP 03-15 00:05 → 2W 03-15 08:26 → 2S 03-16 11:55

== ENCOUNTER 2024-06-24 20:14 | Inpatient (IN) ==
--- NOTE | 2024-06-24 20:29 | Emergency Department Note ---
Impression & Plan Closed fracture of neck of left femur, Fall from standing ED Provider Note HISTORY OF PRESENT ILLNESS: Patient is an 84-year-old male presenting with left shoulder pain and left hip pain after a fall. Patient reports he was trying to wind up a hose in his garage when the hose got stuck and he tugged it and lost his balance, falling onto his left hip and striking his left shoulder. He did not strike his head or lose consciousness. He denies any chest pain, shortness of breath or lightheadedness prior to this fall. He reports he just lost his footing. He is on Coumadin for history of blood clots. He took Tylenol and Motrin prior to arrival of EMS. He states that the fall occurred at 1630. He has had progressively worsening pain in his left shoulder and left hip ever since. He has been unable to bear weight on the left hip. ROS: as above PHYSICAL EXAM: Constitutional: Patient appears in no acute distress. HENT: Head: Normocephalic and atraumatic. Eyes: EOMI, PERRL Mouth/Throat: Mucous membranes moist. Neck: Trachea midline. Neck supple. No midline cervical spine tenderness to palpation. Cardiovascular: RRR, No murmurs, rubs or gallops. Intact distal pulses. Pulmonary/Chest: No respiratory distress. Breath sounds clear and equal bilaterally. No wheezes or rales. No chest wall tenderness to palpation. Abdominal: Abdomen soft, no tenderness, rebound or guarding. Musculoskeletal: - LLE: Tenderness to palpation of the proximal lateral femur where it meets the hip. Pain with internal/external rotation of the femur. Patient is able to subtly flex at the hip but with significant pain. Able to dorsiflex and plantarflex the ankle. Able to wiggle toes. Intact DP and PT pulses. Sensation intact to light touch about the nerve distributions of the leg. - LUE: Tenderness to palpation diffusely across the shoulder. No obvious deformity and no open wounds. Intact radial pulse. Patient is able to flex and extend at the elbow and flex and extend at the wrist. Able to give thumbs up, okay sign and cross fingers. Sensation intact throughout the nerve distributions of the arm. Skin: Warm and dry. No rash, erythema, pallor or cyanosis Psychiatric: Appropriate mood and affect for situation. Neurological: Alert and keenly responsive. CN II-XII grossly intact MDM: - Vitals signs showed hypertension - History obtained via patient. History as above. - Chronic conditions affecting care: DVT; HTN; HLD; TIA; BPH - Differential diagnoses include, but are not limited to: Humerus fracture; femur fracture; pelvic fracture; pneumothorax; intracranial hemorrhage - Order placed for continuous cardiac monitoring. At this time, monitor showed rate of 58 bpm with normal sinus rhythm, per my interpretation. - External medical records reviewed. Orthopedic surgical report dated 02/26/2021 was reviewed. Patient had right shoulder tendinopathy and rotator cuff tear that was repaired with a total reverse shoulder arthroplasty. - EKG interpreted by myself showed normal sinus rhythm. Rate 62 bpm. QT 422. No acute ischemic changes. - Laboratory workup interpreted by myself showed normal WBC; therapeutic INR (2.5 - on coumadin); stable electrolytes - UA negative for infection - CXR negative for pneumonia, per my interpretation. - CT head wo contrast negative for acute intracranial pathology - CT cervical spine wo contrast negative for acute injury - Xray left shoulder negative for acute fracture, per my interpretation. - Xray pelvis with left hip showed a femoral neck fracture with impaction, per my interpretation - Patient initially given 4 mg IV morphine for pain control. On reassessment, he is complaining of continued pain. Given additional 4 mg IV morphine. - Discussion was had with onsite case manager about patient's case and need for admission - Hospitalist, Dr. Nicholson, consulted for admission - [facility] ASSESSMENT AND PLAN: Diagnosis: Fall from standing; acute left femoral neck fracture Plan: Admit Past Med/Surg History Problem List (Updated 06/24/24 @ 23:50 by Alyson Gaitan MD) Fall from standing (Acute) Closed fracture of neck of left femur (Acute) Arthritis of knee, left Accelerated junctional rhythm Urinary retention Dizziness (Acute) Ambulatory dysfunction (Acute) Lower leg DVT (deep venous thromboembolism), acute HX Osteoarthritis of right hip BPH (benign prostatic hyperplasia) History of lumbar spinal fusion x6 Encounter for pre-operative examination Abdominal pain of unknown etiology Callus of foot Dermatitis of both feet Trochanteric bursitis of left hip Encounter for pre-operative examination Status post reverse total replacement of right shoulder (~02/2021) Osteoarthritis of left knee Encounter for pre-operative examination Special screening for malignant neoplasm of colon Deep vein thrombosis x2, after surgery, LLE DVT (2011); f/u [facility] Hemochromatosis Hereditary hemochromatosis, phlebotomy q6 months per GI (most recent 08/2020 per GI), (per PCP 12/2020, recent transferrin level WNL) Hyperlipidemia Hypertension controlled, stable per pt History of tooth extraction Status post Mohs surgery for basal cell carcinoma Basal cell carcinoma of nose hx GERD (gastroesophageal reflux disease) Controlled, stable per pt History of esophagogastroduodenoscopy (EGD) History of colonoscopy Paroxysmal SVT (supraventricular tachycardia) (Chronic) Follows with [facility] TIA (transient ischemic attack) (Chronic) TIA (2014/no evidence of CVA on MRI per PCP records) Dyslipidemia (Chronic) following with PCP and cardiology for management Hx of cholecystectomy (Chronic) History of back surgery (Chronic) x6 (including rods/screws) H/O nasal polypectomy (Chronic) H/O left knee surgery (Chronic) Pulmonary embolism Post-op (2011) Medical History History of blood transfusion last transfusion approx. 1985 History of difficult [place] [facility] [place] 1, glidescope 3, ETT 7.5 at [facility]. Carotid artery aneurysm History of anesthesia reaction hallucinations for approximately 5 days after prostate surgery in [place] Hearing deficit No aids Aortic root dilatation Moderately enlarged, unchanged compared to 02/04/2020 (per 11/09/20 DSE report) Surgical History H/O cataract extraction History of reverse total replacement of right shoulder joint Hx of basal cell carcinoma excision History of prostate surgery [place] [facility] [place] 1, glidescope 3, ETT 7.5 at [facility] History of total right hip replacement Family History Brother Family hx colonic polyps Other No family history of adverse response to anesthesia Social History Smoking Status: Never smoker Second Hand Exposure: No; Do You Dip or Chew Tobacco: No; Hx Alcohol Use: No Hx Substance Use: No Preferred Language: Bangladeshi Communication Ability: Effective 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: No Beliefs That Will Affect Care: None Current Living Situation: Spouse current occupational status: retired Feels Safe at Home: Yes Assistive Devices: Wheelchair Allergies Allergies Allergy/AdvReac Type Severity Reaction Status Date / Time vancomycin Allergy Mild red, itchy Verified 11/27/23 10:02 Sulfa (Sulfonamide Allergy Unknown "Everyone Verified 11/27/23 10:02 Antibiotics) in family" Home Meds Home Medications Medication Instructions Recorded Confirmed azelastine 137 mcg (0.1 %) nasal 2 spray intranasal BID PRN RHINITIS 10/01/18 06/24/24 spray cholecalciferol (vitamin D3) 125 5,000 unit PO QAM 10/01/18 06/24/24 mcg (5,000 unit) tablet (Vitamin D3) digoxin 125 mcg (0.125 mg) tablet 125 mcg PO HS 10/01/18 11/27/23 (Digox) fluticasone propionate 50 2 spray intranasal QAM PRN 10/01/18 06/24/24 mcg/actuation nasal Congestion spray,suspension (Flonase Allergy Relief) furosemide 40 mg tablet (Lasix) 40 mg PO DAILY PRN fluid 10/01/18 06/24/24 accumulation or wt gain magnesium oxide 400 mg PO QAM 10/01/18 11/27/23 warfarin 5 mg tablet (Jantoven) 5 - 7.5 mg PO UD 10/01/18 06/24/24 folic acid 1 mg tablet 1 mg PO QAM 01/21/22 06/24/24 cyanocobalamin (vitamin B-12) 5,000 mcg sublingual DAILY 09/01/23 06/24/24 5,000 mcg sublingual tablet (Vitamin B-12) ezetimibe 10 mg tablet 10 mg PO QAM 09/01/23 11/27/23 omeprazole 20 mg capsule,delayed 20 mg PO DAILYBB 11/15/23 06/24/24 release finasteride 5 mg tablet 5 mg PO QAM 06/24/24 06/24/24 metoprolol succinate 25 mg 37.5 mg PO QAM 06/24/24 06/24/24 tablet,extended release 24 hr nitrofurantoin 100 mg PO AMHS 06/24/24 06/24/24 monohydrate/macrocrystals 100 mg capsule tamsulosin 0.4 mg capsule 0.4 mg PO QAM 06/24/24 06/24/24 Results & Data (ED) Vital Signs Vital Signs - 24 hr 06/24/24 20:15 06/24/24 20:40 06/24/24 22:03 Temperature 36.5 C Temperature Source Oral Pulse Rate 63 67 Pulse Rate [Apical] 58 L Respiratory Rate 16 18 Respiratory Effort / Characteristics Non-Labored Spontaneous Respiratory Depth Normal Normal Respiratory Pattern Regular Blood Pressure 157/108 H Blood Pressure [Right Arm] 153/83 H Blood Pressure Mean 124 Blood Pressure Mean [Right Arm] 106 Blood Pressure Position Semi-fowlers Pulse Oximetry 97 98 Oxygen Delivery Method Room Air Room Air Sepsis Recent Fever Within 48 Hours No Sepsis New/Unexplained Change in Mental Status No Sepsis Action Taken by Nursing No Action Required Laboratory Data 06/24/24 20:30 06/24/24 20:30 Lab Results 06/24/24 06/24/24 06/24/24 Range/Units 20:30 21:00 22:30 WBC 7.01 (4.8-10.8) K/ul RBC 4.58 L (4.70-6.10) M/uL Hgb 14.1 (14.0-18.0) g/dl Hct 40.6 L (42.0-52.0) % MCV 88.6 (80.0-100.0) fL MCH 30.8 (25.0-34.0) pg MCHC 34.7 (32.0-36.0) g/dL RDW Std Deviation 42.7 (36.4-46.3) fL RDW Coeff of Alex 13.1 (11.5-14.5) % Plt Count 151 (130-400) K/uL MPV 9.5 (9.4-12.4) fL Immature Gran % (Auto) 0.3 % Neut % (Auto) 81.9 % Lymph % (Auto) 5.4 % [place] % (Auto) 9.4 % Eos % (Auto) 2.7 % Baso % (Auto) 0.3 % Neut # (Auto) 5.74 (1.40-6.50) K/uL Lymph # (Auto) 0.38 L (1.20-3.40) K/uL [place] # (Auto) 0.66 H (0.11-0.59) K/uL Eos # (Auto) 0.19 (0.00-0.50) K/uL Baso # (Auto) 0.02 (0.00-0.20) K/uL Immature Gran # (Auto) 0.02 (0.01-0.20) K/uL PT Cancelled 25.0 H INR Cancelled 2.5 H APTT Cancelled 41 H PTT Ratio Cancelled 1.5 Sodium 138 (136-145) mmol/L Potassium 4.2 (3.5-5.1) mmol/L Chloride 103 (98-107) mmol/L Carbon Dioxide 31 (21-32) mmol/L Anion Gap 4 (3-11) BUN 28 H (6-23) mg/dl Creatinine 1.04 (0.6-1.4) mg/dl Est Cr Clr Drug Dosing 55.3 ml/min eGFR 70.80 BUN/Creatinine Ratio 26.9 H (10-20) Glucose 132 H (70-99(Fasting)) mg/dl Calcium 9.2 (8.6-10.3) mg/dl Total Bilirubin 0.7 (0.2-1.0) mg/dl AST 19 (13-39) U/L ALT 15 (7-52) U/L Alkaline Phosphatase 74 (34-104) U/L Total Protein 6.7 (6.0-8.3) gm/dl Albumin 4.0 (3.4-5.0) gm/dl Globulin 2.7 (2.5-4.0) gm/dl Albumin/Globulin Ratio 1.5 (0.9-2) Urine Color Dark Yellow Urine Appearance Clear (Clear) Urine pH 5.5 (4.5-7.5) Ur Specific [place] 1.027 (1.000-1.030) Urine Protein 1+ H (Negative) Urine Glucose (UA) Negative (Negative) Urine Ketones Trace H (Negative) Urine Blood Negative (Negative) Urine Nitrite Negative (Negative) Urine Bilirubin 1+ H (Negative) Urine Urobilinogen Negative (Negative) Ur Leukocyte Esterase 1+ H (Negative) Urine WBC (Auto) 11-20 H (0-5) /hpf Urine RBC (Auto) 11-20 H (0-2) /hpf U Hyaline Cast (Auto) >20 H (0-2) /lpf U Epithel Cells (Auto) 3-5 H (0-2) /hpf Urine Bacteria (Auto) None Seen (None Seen) Hyaline Casts Present A (None Presnt) /lpf Administered Medications Discontinued Medications Fentanyl Citrate (Fentanyl Citrate Pf 100 Mcg/2 Ml Vial) 50 mcg IV NOW STA Stop: 06/24/24 23:16 Last Admin: 06/24/24 23:43 Dose: 50 mcg Documented By: RADHA Morphine Sulfate (Morphine Sulfate 4 Mg/Ml 1 Ml Carp\\Vial) 4 mg IV NOW STA Stop: 06/24/24 20:27 Last Admin: 06/24/24 20:38 Dose: 4 mg Documented By: LCD Imaging Data Radiologist's Impression: Chest X-Ray 06/24/24 20:26 Exam(s): XR CXR 1 VIEW EXAM: XR Chest, 1 View CLINICAL HISTORY: Pre op. TECHNIQUE: Frontal view of the chest. COMPARISON: 09-01-2023. FINDINGS: Lungs: No infiltrate. No atelectasis. No CHF. Pleural space: No pleural effusion. No pneumothorax. Heart: Unremarkable. No cardiomegaly. Mediastinum: Unremarkable. Normal mediastinal contour. Bones/joints: No acute fracture. Dextroscoliosis with degenerative changes of the thoracic spine. Status post right shoulder replacement. IMPRESSION: No acute abnormality. Electronically signed by: Andrez Yun M.D. 06/24/24 23:09 PM Hip X-Ray 06/24/24 20:26 Exam(s): XR LEFT HIP EXAM: XR Left Hip With Pelvis When Performed, 4 Views CLINICAL HISTORY: L hip pain s/p fall. TECHNIQUE: Four views of the left hip with pelvis when performed. COMPARISON: CT pelvis 2023. FINDINGS: Bones/joints: Acute fracture through the left femoral neck with mild superior displacement and impaction of the distal fracture fragment. No other fracture. No dislocation of the femoral head relative to the acetabulum. Bones are spinning. Degenerative postoperative changes of the lower lumbar spine. Soft tissues: Vascular calcifications. IMPRESSION: Acute fracture through the left femoral neck with mild superior displacement and impaction of the distal fracture fragment. Electronically signed by: Andrez Yun M.D. 06/24/24 23:07 PM Shoulder X-Ray 06/24/24 20:26 Exam(s): XR LEFT SHOULDER, 2+ views EXAM: XR Left Shoulder Complete, 4 Views CLINICAL HISTORY: L shoulder pain s/p fall. TECHNIQUE: Four views of the left shoulder. COMPARISON: No relevant prior studies available. FINDINGS: Bones/joints: Bones are osteopenic. No acute fracture. No dislocation. Soft tissues: Unremarkable. IMPRESSION: No acute post-traumatic abnormality. Electronically signed by: Andrez Yun M.D. 06/24/24 23:[address] 06/24/24 20:29 Exam(s): CT C SPINE EXAM: CT Cervical Spine Without Intravenous Contrast CLINICAL HISTORY: fall from standing. TECHNIQUE: Axial computed tomography images of the cervical spine without intravenous contrast. CTDI is 21.8 mGy and DLP is 1193.76 mGy-cm. Automated exposure control was utilized for the study. A dose lowering technique was utilized adhering to the principles of ALARA. COMPARISON: 09/01/2023 FINDINGS: Vertebrae: No acute fracture. Maintenance of height of the vertebral bodies. No subluxation. Discs/spinal canal/neural foramina: Mild multilevel degenerative changes. Soft tissues: Prevertebral soft tissues are unremarkable. IMPRESSION: No acute post-traumatic abnormality. Electronically signed by: Andrez Yun M.D. 06/24/24 22:[address] 06/24/24 20:29 Exam(s): CT HEAD Without Contrast EXAM: CT Head Without Intravenous Contrast CLINICAL HISTORY: fall from standing; on coumadin. TECHNIQUE: Axial computed tomography images of the head/brain without intravenous contrast. CTDI is 26.72 mGy and DLP is 564.79 mGy-cm. Automated exposure control was utilized for the study. A dose lowering technique was utilized adhering to the principles of ALARA. COMPARISON: 09/01/2023. FINDINGS: Brain: Age-appropriate generalized atrophy. No acute stroke. 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 Moderate supratentorial periventricular and subcortical white matter changes. No acute hemorrhage or abnormal extra-axial fluid collection. Ventricles: No hydrocephalus. No midline shift. Bones/joints: Unremarkable. No acute fracture. Soft tissues: Unremarkable. Sinuses: Bilateral maxillary sinus air-fluid levels. Bilateral ethmoid air cell and left frontal sinus air-fluid levels. Minimal fluid in the right vanessa-sphenoid sinus. IMPRESSION: No acute post-traumatic intracranial abnormality. Diffuse paranasal sinus air-fluid levels. Electronically signed by: Andrez Yun M.D. 06/24/24 22:42 PM Discharge Plan Visit Data Chief Complaint: Fall Stated Complaint: FALL, SHOULDER AND HIP PAIN ED Provider: Alyson Gaiatn Discharge Problem: Closed fracture of neck of left femur, Fall from standing Forms Stand Alone Forms: [facility] Prescriptions Prescriptions: No Action furosemide [Lasix] 40 mg Tablet 40 mg PO DAILY PRN (Reason: fluid accumulation or wt gain) warfarin [Jantoven] 5 mg Tablet 5 - 7.5 mg PO UD Rx Instructions: take 7.5mg (1.5 tablets) on monday, and saturdays; take 5mg ( 1 tablet) all other days or as dircted by anticoagulation clinic digoxin [Digox] 125 mcg Tablet 125 mcg PO HS azelastine 137 mcg (0.1 %) Aerosol,[place] 2 spray INTRANASAL BID PRN (Reason: RHINITIS) fluticasone propionate [Flonase Allergy Relief] 50 mcg/actuation [place],Suspension 2 spray INTRANASAL QAM PRN (Reason: Congestion) cholecalciferol (vitamin D3) [Vitamin D3] 5,000 unit Tablet 5,000 unit PO QAM magnesium oxide 400 mg Capsule 400 mg PO QAM folic acid 1 mg Tablet 1 mg PO QAM ezetimibe 10 mg tablet 10 mg PO QAM cyanocobalamin (vitamin B-12) [Vitamin B-12] 5,000 mcg Tablet, Sublingual 5,000 mcg SUBLINGUAL DAILY omeprazole 20 mg capsule,delayed release(DR/EC) 20 mg PO DAILYBB metoprolol succinate 25 mg tablet extended release 24 hr 37.5 mg PO QAM nitrofurantoin monohyd/m-cryst 100 mg capsule 100 mg PO AMHS Rx Instructions: ordered 06/14/24 take for 12 days tamsulosin 0.4 mg capsule 0.4 mg PO QAM finasteride 5 mg tablet 5 mg PO QAM Referrals Referrals: Xiomara Kearns MD [Primary Care Provider] -
[2024-06-24] MEDS: MoRPHine SULFATE 4 MG/ML 1 ML CARP\\VIAL IV STA (20:38)
[2024-06-24 21:02] LABS: Albumin Globulin Ratio 1.5 (0.9-2); BUN Creatinine Ratio 26.9 (10-20); Bilirubin,Total 0.7 mg/dl (0.2-1.0); Calcium 9.2 mg/dl (8.6-10.3); Creatinine Clr Calc Pharmacy 55.3 ml/min; Globulin 2.7 gm/dl (2.5-4.0); Potassium 4.2 mmol/L (3.5-5.1); Total Protein 6.7 gm/dl (6.0-8.3)
[2024-06-24 21:08] LABS: Basophils # (auto) 0.02 K/uL (0.00-0.20); Basophils % (auto) 0.3 %; Eosinophils # (auto) 0.19 K/uL (0.00-0.50); Eosinophils % (auto) 2.7 %; Hematocrit (blood only) 40.6 % (42.0-52.0); Hemoglobin 14.1 g/dl (14.0-18.0); Immature Granulocytes # (auto) 0.02 K/uL (0.01-0.20); Immature Granulocytes % (auto) 0.3 %; Lymphocytes # (auto) 0.38 K/uL (1.20-3.40); Lymphocytes % (auto) 5.4 %; Mean Corpuscular Hemoglobin 30.8 pg (25.0-34.0); Mean Corpuscular Hgb Conc 34.7 g/dL (32.0-36.0); Mean Corpuscular Volume 88.6 fL (80.0-100.0); Mean Platelet Volume 9.5 fL (9.4-12.4); Monocytes # (auto) 0.66 K/uL (0.11-0.59); Monocytes % (auto) 9.4 %; Neutrophils # (auto) 5.74 K/uL (1.40-6.50); Neutrophils % (auto) 81.9 %; Platelet Count 151 K/uL (130-400); RDW Coefficient of Variation 13.1 % (11.5-14.5); RDW Standard Deviation 42.7 fL (36.4-46.3); Red Blood Count 4.58 M/uL (4.70-6.10); White Blood Count 7.01 K/ul (4.8-10.8)
[2024-06-24 21:44] LABS: Appearance Urine Clear (Clear); Bacteria Urine Automated None Seen (None Seen); Bilirubin Urine 1+ (Negative); Blood Urine Negative (Negative); Cast Urine Automated >20 /lpf (0-2); Color Urine Dark Yellow; Glucose Urine UA Negative (Negative); Hyaline Casts Urine Present /lpf (None Presnt); Ketones Urine Trace (Negative); Leukocyte Esterase Urine 1+ (Negative); Nitrite Urine Negative (Negative); Protein Urine 1+ (Negative); Specific Gravity Urine 1.027 (1.000-1.030); Urobilinogen Urine Negative (Negative); pH Urine 5.5 (4.5-7.5)
--- NOTE | 2024-06-24 22:43 | CT Scan Report ---
Exam(s): CT HEAD Without Contrast EXAM: CT Head Without Intravenous Contrast CLINICAL HISTORY: fall from standing; on coumadin. TECHNIQUE: Axial computed tomography images of the head/brain without intravenous contrast. CTDI is 26.72 mGy and DLP is 564.79 mGy-cm. Automated exposure control was utilized for the study. A dose lowering technique was utilized adhering to the principles of ALARA. COMPARISON: 09/01/2023. FINDINGS: Brain: Age-appropriate generalized atrophy. No acute stroke. 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 Moderate supratentorial periventricular and subcortical white matter changes. No acute hemorrhage or abnormal extra-axial fluid collection. Ventricles: No hydrocephalus. No midline shift. Bones/joints: Unremarkable. No acute fracture. Soft tissues: Unremarkable. Sinuses: Bilateral maxillary sinus air-fluid levels. Bilateral ethmoid air cell and left frontal sinus air-fluid levels. Minimal fluid in the right vanessa-sphenoid sinus. IMPRESSION: No acute post-traumatic intracranial abnormality. Diffuse paranasal sinus air-fluid levels. Electronically signed by: Andrez Yun M.D. 06/24/24 22:42 PM
--- NOTE | 2024-06-24 22:48 | CT Scan Report ---
Exam(s): CT C SPINE EXAM: CT Cervical Spine Without Intravenous Contrast CLINICAL HISTORY: fall from standing. TECHNIQUE: Axial computed tomography images of the cervical spine without intravenous contrast. CTDI is 21.8 mGy and DLP is 1193.76 mGy-cm. Automated exposure control was utilized for the study. A dose lowering technique was utilized adhering to the principles of ALARA. COMPARISON: 09/01/2023 FINDINGS: Vertebrae: No acute fracture. Maintenance of height of the vertebral bodies. No subluxation. Discs/spinal canal/neural foramina: Mild multilevel degenerative changes. Soft tissues: Prevertebral soft tissues are unremarkable. IMPRESSION: No acute post-traumatic abnormality. Electronically signed by: Andrez Yun M.D. 06/24/24 22:47 PM
--- NOTE | 2024-06-24 23:09 | XRay Report ---
Exam(s): XR LEFT HIP EXAM: XR Left Hip With Pelvis When Performed, 4 Views CLINICAL HISTORY: L hip pain s/p fall. TECHNIQUE: Four views of the left hip with pelvis when performed. COMPARISON: CT pelvis 2023. FINDINGS: Bones/joints: Acute fracture through the left femoral neck with mild superior displacement and impaction of the distal fracture fragment. No other fracture. No dislocation of the femoral head relative to the acetabulum. Bones are spinning. Degenerative postoperative changes of the lower lumbar spine. Soft tissues: Vascular calcifications. IMPRESSION: Acute fracture through the left femoral neck with mild superior displacement and impaction of the distal fracture fragment. Electronically signed by: Andrez Yun M.D. 06/24/24 23:07 PM
--- NOTE | 2024-06-24 23:10 | XRay Report ---
Exam(s): XR CXR 1 VIEW EXAM: XR Chest, 1 View CLINICAL HISTORY: Pre op. TECHNIQUE: Frontal view of the chest. COMPARISON: 09-01-2023. FINDINGS: Lungs: No infiltrate. No atelectasis. No CHF. Pleural space: No pleural effusion. No pneumothorax. Heart: Unremarkable. No cardiomegaly. Mediastinum: Unremarkable. Normal mediastinal contour. Bones/joints: No acute fracture. Dextroscoliosis with degenerative changes of the thoracic spine. Status post right shoulder replacement. IMPRESSION: No acute abnormality. Electronically signed by: Andrez Yun M.D. 06/24/24 23:09 PM
--- NOTE | 2024-06-24 23:13 | XRay Report ---
Exam(s): XR LEFT SHOULDER, 2+ views EXAM: XR Left Shoulder Complete, 4 Views CLINICAL HISTORY: L shoulder pain s/p fall. TECHNIQUE: Four views of the left shoulder. COMPARISON: No relevant prior studies available. FINDINGS: Bones/joints: Bones are osteopenic. No acute fracture. No dislocation. Soft tissues: Unremarkable. IMPRESSION: No acute post-traumatic abnormality. Electronically signed by: Andrez Yun M.D. 06/24/24 23:12 PM
[2024-06-24 23:29] LABS: INR 2.5 (0.9-1.1); Partial Thromboplastin Ratio 1.5; Partial Thromboplastin Time 41 Seconds (21-31)
[2024-06-24] MEDS ORDERED: PROMETHAZINE 6.25 MG/50.25 ML BAG IV PRN (23:31)
[2024-06-24] MEDS ORDERED: traMADol HCL 50 MG TABLET PO PRN (23:31)
[2024-06-24] MEDS: fentaNYL citrate PF 100 MCG/2 ML VIAL IV STA (23:43)
--- OUTSIDE RECORDS SUMMARY | 2024-06-24 23:44 | External Medical Summary | Summary of Care ---
Author Name Unknown Organization [facility] Address [address] [place] [address] Phone [phone] Care Team Providers Care Lighting Equipment Operator Name Role Phone Xiomara Sapp MD Primary Care Prov ider Reason for Visit * Reason Onset Date Comments Test Results 04/12/2024 Advice 04/12/2024 Encounter Details Date Type Department Care Team (Late st Contact Info) Description 04/12/2024 Telephone Urology, [facility] [address] [place] [address] Services, Scheduling [address] [place] [address] Test Results; Advice Allergies Active Allergy Reactions Criticality Noted Date Comments Sulfa Antibiotics 10/16/2003 Unknown reaction Vancomycin Low 06/17/2022 Other reaction(s): red, itchy Other reaction(s): red, itchy documented as of this encounter (statuses as of 06/14/2024) Medications VITAMIN D3 5000 UNITS PO CAPS 1 CAPSULE DAILY 014 Active Magnesium Oxide 400 MG Tablet TAKE ONE TABLET BY MOUTH EVERY DAY 90 Tab 1 015 Active acetaminophen (TYLENOL) 325 MG Tablet Take 1 Tablet by mouth every 6 hours as needed for Pain. Active Econazole Nitrate 1 % External Cream (Spectazole)Tatyana cations:Tinea pedis of both feet APPLY TO AFFECTED AREA TWICE DAILY 85 g 022 Active Folic Acid 1 MG Oral Tablet Take 1 Tablet by mouth in the morning. Active B-12 5000 MCG Oral Capsule Take by mouth 1 Capsule daily . Active Furosemide 40 MG Oral Tablet (Lasix)Indicatio ns:Bilateral edema of lower extremity Take 1 Tablet by mouth daily as needed (swelling). for fluid accumulation or weight gain 30 Tablet 3 023 Active Ezetimibe 10 MG Oral Tablet (Zetia) Take 1 Tablet by mouth in the morning. 90 Tablet 3 023 Active Potassium Chloride Kath ER 10 MEQ Oral Tablet Extended ReleaseIndicatio ns:Localized edema Take one tablet in the morning when you take the furosemide water pill only 30 Tablet 11 023 Active Meloxicam 15 MG Oral TabletIndication s:Primary osteoarthritis of left knee Take 1/2 to 1 tablet daily as needed for pain. 30 Tablet 5 023 Active quiNINE Sulfate 324 MG Oral Capsule (Qualaquin)Indic ations:Gastroeso phageal reflux disease without esophagitis Take 1 Capsule by mouth every night at bedtime. as needed for cramping. 20 Capsule 11 024 Active Omeprazole 20 MG Oral Capsule Delayed Release (PriLOSEC)Indica tions:GERD (gastroesophagea l reflux disease) Take 1 Capsule by mouth in the morning. 1 hour before the first meal of the day. 90 Capsule 3 024 Active Azelastine HCl 0.1 % Nasal Solution (Astelin)Indicat ions:Other chronic sinusitis,Polyp of nasal cavity administer into each nostril 2 sprays 2 times a day as needed for rhinitis. 30 mL 1 024 Active Fluticasone Propionate 50 MCG/ACT Nasal Suspension (Flonase)Indicat ions:Other chronic sinusitis,Polyp of nasal cavity use 2 sprays in each nostril daily 48 g 1 024 Active Tamsulosin HCl 0.4 MG Oral Capsule (Flomax) Take 1 Capsule by mouth in the morning. 30 Capsule 6 024 Active Finasteride 5 MG Oral Tablet (Proscar) Take 1 Tablet by mouth in the morning. 90 Tablet 3 024 Active Warfarin Sodium 5 MG Oral Tablet (Jantoven)Indica tions:History of DVT (deep vein thrombosis),Hist ory of pulmonary embolism,Anticoa gulation management encounter,[facility] current use of anticoagulant therapy take 7.5mg (1.5 tablets) on Tuesdays, and saturdays; take 5mg (1 tablet) all other days or as directed by anticoagulation clinic. 100 Tablet 1 024 2023 Discontinued Digoxin 125 MCG Oral Tablet (Lanoxin)Indicat ions:Paroxysmal SVT (supraventricula r tachycardia) (HCC) TAKE ONE TABLET BY MOUTH EVERY DAY 90 Tablet 3 024 2023 Discontinued Metoprolol Tartrate 25 MG Oral Tablet (Lopressor)Indic ations:Paroxysma l SVT (supraventricula r tachycardia) (HCC) TAKE 1/2 TABLET BY MOUTH EVERY 12 HOURS 90 Tablet 1 024 2023 Discontinued Cefdinir 300 MG Oral Capsule (Omnicef) Take 1 Capsule by mouth in the morning and 1 Capsule before bedtime. 20 Capsule 024 2023 Discontinued( End of Procedure) Ciprofloxacin HCl 500 MG Oral Tablet (Cipro) Take 1 Tablet by mouth in the morning and 1 Tablet before bedtime. 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 Increased risk for hereditary hemochromatosis. 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 Go to Snapshot for study details. Primary osteoarthritis of right hip 04/17/2017 03/02/2018 Right lumbar radiculitis 12/20/2016 Neck mass 07/31/2015 08/07/2017 Actinic keratosis 01/21/2015 03/02/2017 Chest pain, non-cardiac 06/04/201212/2017 Dyslipidemia, goal to be determined 01/05/2009 02/14/2012 Chest pain 03/20/2007 06/04/2012 ADVANCE DIRECTIVE INFORMATION 03/01/2006 04/29/2024 Overview (03/01/2006): No, Advance Directive brochure given to patient. Acute cholecystitis 10/16/2003 10/18/19 14 Back disorder 01/27/2015 documented as of this encounter (statuses as of 06/14/2024) Immunizations Name Administration Dates Next Due COVID-19 mRNA, LNP-s, No Pre serve, 2-Dose Series (Pfizer) 10/22/2020,10/01/2020 COVID-19, LNP-s, No Preserve , Cordell-sucrose, Ages 12+ (Pfizer) 08/03/2021 Pneumococcal Conjugate Vacc, 13 Valent (Prevnar) 01/27/2015 Pneumococcal Polysaccharide PPV23 (Pneumovax) 08/17/2012 Season Influenza, Quad, PF, Adjuvanted, 65+ Yrs, IM (FLUAD) 04/07/2020 Seasonal Influenza Vac., MDV , IM, 0.5 mL (Fluzone) 03/25/2014,04/02/2013,06/11/2012 Seasonal Influenza, PF, 6 M & above, IM , (FluLaval or Fluzone) 03/15/2019,03/02/2018,03/16/2017 Seasonal Influenza, Quadriva lent Hd (Fluzone Hd) 03/10/2023,03/28/2022,03/12/2021 03/12/2022 Seasonal Influenza, Quadriva lent, No Preserve, IM 04/04/2016,06/09/2015 TDAP (age 10 and older)(Boostrix) 05/12/2017 Varicella Zoster Vaccine (Adult) 06/23/2015 Zoster Vaccine Recombinant (Shingrix) 12/21/2019 ,03/02/2018 documented as of this encounter Social History Tobacco Use Types Packs/Day Years Used Date Smoking Tobacco: Never Smokeless Tobacco: Never Alcohol Use Standard Drinks/Week Comments No 0 (1 standard drink = 0.6 oz pur e alcohol) PHQ-2 Answer Date Recorded PHQ Adult Total Score 0 11/29/2023 Hunger Vital Sign Answer Date Recorded Within the past 12 months, y ou worried that your food would run out before you got the money to buy more. Patient declined Within the past 12 months, t he food you bought just didn't last and you didn't have money to get more. Patient declined 10/2023 Childcare Answer Date Recorded Do you feel overwhelmed with taking care of a child, family member or friend? No 11/29/2023 Does your family need help f inding childcare? (Household - for ages 0-17 years) Not on file 11/29/2023 Clothing Answer Date Recorded Have you been unable to get clothing when it was really needed? No 11/29/2023 Is your family able to get c lothes or diapers when needed? (Household - for ages 0-17 years) Not on file 11/29/2023 Personal Safety Answer Date Recorded Do you feel unsafe or have concerns for your saf ety? No 11/29/2023 Do you have concerns for you r family's safety? (Household - for ages 0-17 years) Not on file 11/29/2023 Utilities Answer Date Recorded Do you have trouble paying y our heating, water, or electric bill? No 11/29/2023 Is your family able to pay t he heat, water, or electric bill? (Household - for ages 0-17 years) Not on file 11/29/2023 Does your family have access to good internet? (Household - for ages 0-17 years) Not on file 11/29/2023 Employment Status Answer Date Recorded Are you unemployed or without regular income? No 11/29/2023 Does the household have a [facility] source of income? (Household - for ages 0-17 years) Not on file 11/29/2023 Social Connections Answer Date Recorded How often do you feel lonely or isolated from th ose around you? Never 11/29/2023 Financial Resource Strain Answer Date R ecorded Do you have any trouble payi ng for your medications, or do you think you might in the future? No 11/29/2023 Does your family have troubl e paying for medicine? (Household - for ages 0-17 years) Not on file 11/29/2023 Transportation Needs Answer Date Record ed READ ONLY Do you have troubl e getting a ride to medical visits or work? Never True 11/29/2023 Does your family have a hard time getting a ride to doctors visits? (Household - for ages 0-17 years) Not on file 11/29/2023 Has lack of transportation k ept you from medical appointments, meetings, work, or from getting things needed for daily living? Check all that apply. (Adult - for ages 18 years and over) Not on file 11/29/2023 Do you (or your family) have trouble finding or paying for a ride (transportation)? (Household - for ages 0-17 years) Not on file 11/29/2023 Housing Stability Answer Date Recorded Do you currently live in a s helter or have no steady place to sleep at night? No 11/29/2023 READ ONLY Do you think you a re at risk of becoming homeless? No 11/29/2023 Does your family worry about paying for your home or becoming homeless? (Household - for ages 0-17 years) Not on file 0 11/29/2023 Are you homeless or worried that you might be in the future? (Adult - for ages 18 years and over) Not on file Are you (or your family) alesha eless or worried that you might be in the future? (Household - for ages 0-17 years) Not on file Food Insecurity Answer Date Recorded Do you need food for this week? No 11/29/2023 Are you able to get enough f ood for your family? (Household - for ages 0-17 years) Not on file 11/29/2023 Does your family need food t his week? (Household - for ages 0-17 years) Not on file 11/29/2023 Do you always have enough fo od for your family? (Household - for ages 0-17 years) Not on file 11/29/2023 Sex and Gender Information Value Date Recorded Sex Assigned at Not on file Legal Sex Male 5:22 AM EST Gender Identity Not on file Sexual Orientation Not on file Occupation Industry Job Start Date Job End Date retired Not on file Not on file Not on file documented as of this encounter Functional Status * Are you deaf or do you have serious difficulty hearing? Answer Date of Assessment Author No 11/13/2020 9:10 PM Rohini Nolan LPN * Are you blind or do you have serious difficulty seeing, even when wearing glasses? Answer Date of Assessment Author No 11/13/2020 9:10 PM Rohini Nolan LPN * Do you have difficulty dressing or bathing? (5 years old or older) Answer Date of Assessment Author No 11/13/2020 9:10 PM Rohini Nolan LPN * Because of a physical, mental, or emotional condition, do you have difficulty doing errands alone such as visiting a doctors office or shopping? (15 years old or older) Answer Date of Assessment Author No 11/13/2020 9:10 PM EDT Rohini Tatum LPN documented as of this encounter Mental Status * Because of a physical, mental, or emotional condition, do you have serious difficulty concentrating, remembering, or making decisions? (5 years old or older) Answer Entry Date Author No 11/13/2020 9:10 PM EDT Rohini Tatum LPN documented in this encounter Miscellaneous Notes * Addendum Note - Genesis Torres LPN - 06/14/2024 10:30 AM ESTAddended by: GENESIS TORRES on: 06/14/2024 10:30 AM Modules accepted: Orders * Telephone Encounter - Genesis Torres LPN - 06/14/2024 10:27 AM EST Patient states his urine is dark brown, has concern for infection. He is achy/uncomfortable in his lower abdomen. Patient is going to go to [place] to give a new urine sample. Do you want to wait for results prior to treating. He uses [facility] in [place]. Please advise. Patient has concern for developing retention over the weekend if he has an infection. Genesis Cardoso * Telephone Encounter - Genesis Torres LPN - 06/14/2024 9:56 AM EST lmtcb * Telephone Encounter - Krystal Aparicio OSA - 06/14/2024 9:37 AM EST Pt thinks he has a UTI. Pt requesting Ciprix. Please advice on this. * Telephone Encounter - Genesis Torres LPN - 04/12/2024 3:12 PM EDT Patient aware and verbalized understanding. * Addendum Note - Bear Craven MD - 04/12/2024 3:03 PM EDTAddended by: BEAR CRAVEN on: 04/12/2024 03:03 PM Modules accepted: Orders * Telephone Encounter - Bear Craven MD - 04/12/2024 3:02 PM EDT Rx for cipro sent to pharmacy. Thx, HM * Telephone Encounter - Genesis Torres LPN - 04/12/2024 1:31 PM EDT Patient states his symptoms have been ongoing for 2 weeks and can not go another weekend without treatment. Patient is asking for medication to treat his urinary infection. Prelim results are charted. Please advise. Genesis Cardoso LPN * Telephone Encounter - Monet Toscano OSA - 04/12/2024 1:26 PM EDT Reason for patient's call Pt had labs done 04/09/24 and is having UTI symptoms asking for results and if something will be called in before the weekend Caller was transferred to [facility] at the clinic. documented in this encounter Plan of Treatment Upcoming Encounters Date Type Department Care Team (Late st Contact Info) Description 06/18/2024 9:30 AM EST Anticoagulation Pharmacy, [address] [place] [address] [phone] [place] [address] [place] [address] 08/05/2024 8:40 AM EST Office Visit Dermatology [address] [place] [address] Maribel Cazares PA-C [address] [place] [address] [place] [id number] 08/21/2024 11:15 AM EST Office Visit Urology, [facility] [address] [facility] [place] [address] Bear Craven MD [address] [place] [address] [place] [id number] 10/07/2024 10:00 AM EDT Laboratory Laboratory [facility] [address] [place] [phone] [place] [address] [place] [address] 10/14/2024 12:30 PM EDT Office Visit Hematology/Oncology [facility] [address] [place] [phone] Genna Can MD [address] [facility] [place] [phone] 11/26/2024 1:00 PM EDT Office Visit Family Medicine [address] [place] [phone] Sheri Carpio CRNP [address] [place] [address] [place] [id number] 06/09/2025 8:20 AM EST Office Visit Family [address] [place] [phone] Xiomara Sapp MD [address] [place] [address] [place] [address] Scheduled Orders Name Type Priority Associated Diagnoses Orde r Schedule CULTURE, URINE, QUANTITATIVE Lab Routine BPH with urinary obstruction Detrusor areflexia Dysuria Acute cystitis without hematuria Expected: 06/14/2024, Expires: 06/14/2025 Health Maintenance Due Date Last Done Comments Adult Wellness Visit 06/09/2016 06/09/2015 COVID-19 Vaccine ( season) 2024 08/03/2021, 10/22/2020, 10/01/2020 Influenza Vaccine (FLU shot) (#1) 2024 03/10/2023, 03/28/2022, 03/12/2021, Additional history exists Depression Screening 11/28/2024 11/29/2023 GFR 02/20/2025 02/21/2024, 09/2022, 04/27/2023, Additional history exists Fasting Serum Ferritin Hereditary Hemochromatosis (HFE) Annual,All Ages 03/11/2025 03/11/2024, 10/12/2023, 05/29/2023, Additional history exists Transferrin Saturation Hereditary Hemochromatosis (HFE) Annual,All Ages 03/11/2025 03/11/2024, 10/12/2023, 05/29/2023, Additional history exists Albumin/Creatinine Ratio 04/27/2025 04/27/2022 DTap/Tdap Vaccines (2 - Td or Tdap) 05/12/2027 05/12/2017 Pneumococcal Vaccine: 65+ Years Completed 01/27/2015, 08/17/2012 Zoster Vaccines Completed 12/21/2019, 12/2017, 06/23/2015 RETIRED - COLONOSCOPY-EVERY 5 YRS AGES 18-100 Discontinued 01/27/2022, 01/27/2022, 08/25/2016, Additional history exists HPV (Gardasil) Vaccine Aged Out No lo nger eligible based on patient's age to complete this topic Hepatitis B Vaccine Aged Out No longe r eligible based on patient's age to complete this topic MENINGOCOCCAL (MENACTRA/MENVEO) Aged Out No longer eligible based on patient's age to complete this topic documented as of this encounter Medical Devices Not on filedocumented as of this encounter Visit Diagnoses Diagnosis BPH with urinary obstruction- Primary Hypertrophy of prostate with urinary obstruction and other lower urinary tract symptoms (LUTS) Detrusor areflexia Atony of bladder Dysuria Acute cystitis without hematuria Acute cystitis documented in this encounter Advance Directives * Full Code (Latest Code Status on File) Date Activated Date Inactivated Comments 11/13/2020 4:45 PM 11/14/2020 5:13 PM Question Answer Comments Discussion of Advance Directives occurred with: Not Discussed Care Teams Lighting Equipment Operator Relationship Specialty Start Date End Date Xiomara Sapp MD [address] [place] [address] [place] [address] PCP - General Family Medicine 11/16/22 documented as of this encounter
--- OUTSIDE RECORDS SUMMARY | 2024-06-24 23:44 | External Medical Summary | Summary of Care ---
Author Name Unknown Organization [facility] Address [address] [place] [address] Phone [phone] Care Team Providers Care Manager Acquisition Name Role Phone Xiomara Sapp MD Primary Care Prov ider Reason for Visit * Reason Onset Date Comments Test Results 04/12/2024 Advice 04/12/2024 Encounter Details Date Type Department Care Team (Late st Contact Info) Description 04/12/2024 Telephone Urology, [facility] [address] [place] [address] Services, Scheduling [address] [place] [address] Test Results; Advice Allergies Active Allergy Reactions [...] thrombosis),Hist ory of pulmonary embolism,Anticoa gulation management encounter,[facility] current use of anticoagulant therapy take 7.5mg [...] 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 Increased risk for hereditary hemochromatosis. S/P hip [...] No 11/29/2023 Does the household have a [facility] source [facility] income? (Household - for ages [...] abdomen. Patient is going to go to [place] to give a new urine sample. Do you want to wait for results prior to treating. He uses [facility] in [place]. Please advise. * Telephone Encounter - Genesis Torres LPN [...] before the weekend Caller was transferred to [facility] at the clinic. documented in this encounter Plan of Treatment Upcoming Encounters Date Type Department Care Team (Late st Contact Info) Description 06/18/2024 9:30 AM EST Anticoagulation Pharmacy, [address] [place] [address] [place] [address] 08/05/2024 8:40 AM EST Office Visit Dermatology [address] [place] [address] Maribel Cazares PA-C [address] [place] [address] [place] [id number] 08/21/2024 11:15 AM EST Office Visit Urology, [facility] [address] [facility] [place] [address] Bear Craven MD [address] [place] [address] [place] [address] 10/07/2024 10:00 AM EDT Laboratory Laboratory [facility] [address] [place] [phone] [facility] [address] [place] [address] 10/14/2024 12:30 PM EDT Office Visit Hematology/Oncology [facility] [address] [place] [phone] Genna Can MD [address] [place] [address] [place] [phone] 11/26/2024 1:00 PM EDT Office Visit Family [address] [phone] Sheri Carpio CRNP [address] [place] [address] [place] [address] 06/09/2025 8:20 AM EST Office Visit Family [address] [place] [phone] Xiomara Sapp MD [address] [place] [address] [place] [address] Scheduled Orders Name Type Priority Associated Diagnoses [...] Directives occurred with: Not Discussed Care Teams Manager Acquisition Relationship Specialty Start Date End Date Xiomara Sapp MD [address] [place] [address] [place] [address] PCP - General Family Medicine 11/16/22 documented as of this encounter
--- OUTSIDE RECORDS SUMMARY | 2024-06-24 23:44 | External Medical Summary | Summary of Care ---
Author Name Unknown Organization [facility] Address [address] [place] [address] Phone [phone] Care Team Providers Care Tactical Air Defense Controller Name Role Phone Xiomara Sapp MD Primary Care Prov ider Reason for Visit * Reason Onset Date Comments Test Results 04/12/2024 Advice 04/12/2024 Encounter Details Date Type Department Care Team (Late st Contact Info) Description 04/12/2024 Telephone Urology, [facility] [address] [place] [address] Services, Scheduling [address] [place] [address] Test Results; Advice Allergies Active Allergy Reactions [...] the morning. 90 Tablet 3 024 Active Nitrofurantoin Monohyd Macro 100 MG Oral Capsule (Macrobid) Take 1 Capsule by mouth in the morning and 1 Capsule before bedtime. With food.. 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 Increased risk for hereditary hemochromatosis. S/P hip [...] No 11/29/2023 Does the household have a re lar source of income? (Household - for ages [...] 11/13/2020 9:10 PM EDT Rohini Tatum LPN * Because of a physical, mental, or emotional condition, do you have difficulty doing errands alone such as visiting a doctors office or shopping? (15 years old or older) Answer Date of Assessment Author No 11/13/2020 9:10 PM EDT Rohini Tatum, STOCK PATCHER documented as of this encounter Mental Status * Because of a physical, mental, or emotional condition, do you have serious difficulty concentrating, remembering, or making decisions? (5 years old or older) Answer Entry Date Author No 11/13/2020 9:10 PM EDT Rohini Tatum, STOCK PATCHER documented in this encounter Miscellaneous Notes * Addendum Note - Bear Raines MD - 06/14/2024 1:44 PM ESTAddended by: BEAR RAINES on: 06/14/2024 01:44 PM Modules accepted: Orders * Telephone Encounter - Bear Raines MD - 06/14/2024 1:43 PM EST Noted. Prescription for Macrobid provided for patient for the week. Follow-up urine culturewhen available for final sensitivities. Thanks, HM * Addendum Note - Genesis Torres LPN - 06/14/2024 10:30 AM ESTAddended by: GENESIS TORRES on: 06/14/2024 10:30 AM Modules accepted: Orders * Telephone Encounter - Genesis Torres LPN - 06/14/2024 10:27 AM EST Patient states his urine is dark brown, has concern for infection. He is achy/uncomfortable in his lower abdomen. Patient is going to go to [place] to give a new urine sample. Do you want to wait for results prior to treating. He uses [facility] in [place]. Please advise. Patient has concern for developing [...] verbalized understanding. * Addendum Note - Bear Raines MD - 04/12/2024 3:03 PM EDTAddended by: EBAR RAINES on: 04/12/2024 03:03 PM Modules accepted: Orders * Telephone Encounter - Bear Raines MD - 04/12/2024 3:02 PM EDT Rx [...] before the weekend Caller was transferred to [facility] at the clinic. documented in this encounter Plan of Treatment Upcoming Encounters Date Type Department Care Team (Late st Contact Info) Description 06/18/2024 9:30 AM EST Anticoagulation Pharmacy, [address] [place] [address] [place] [address] 08/05/2024 8:40 AM EST Office Visit Dermatology [address] [place] [address] Maribel Cazares PA-C [address] [place] [address] [place] [address] 08/21/2024 11:15 AM EST Office Visit Urology, [facility] 132 [facility] [place] [address] Bear Raines MD [address] [place] [address] 10/07/2024 10:00 AM EDT Laboratory Laboratory [facility] [address] [place] [phone] [place], Lab Scene [address] [facility] [place] [address] 10/14/2024 12:30 PM EDT Office Visit Hematology/Oncology [facility] [place] [phone] Genna Can MD [address] [place], [place] [address] [phone] 11/26/2024 1:00 PM EDT Office Visit Family [address] [phone] Sheri Carpio CRNP [address] [place] [address] [place] [address] 06/09/2025 8:20 AM EST Office Visit [address] [place] [phone] Xiomara Sapp MD [address] [place] [address] [place] [address] Pending Results Name Type Priority Associated Diagnoses Date /Time CULTURE, URINE, QUANTITATIVE Lab Routine BPH with urinary obstruction Detrusor areflexia Dysuria Acute cystitis without hematuria 06/14/2024 12:00 PM EST Scheduled Orders Name Type Priority Associated Diagnoses [...] Depression Screening 11/28/2024 11/29/2023 GFR 02/20/2025 02/21/2024, 12/0 09/2022, 04/27/2023, Additional history exists Fasting Serum [...] Directives occurred with: Not Discussed Care Teams Tactical Air Defense Controller Relationship Specialty Start Date End Date Xiomara Sapp MD [address] [place] [address] [place] [address] PCP - General Family Medicine 11/16/22 documented as of this encounter
--- OUTSIDE RECORDS SUMMARY | 2024-06-24 23:44 | External Medical Summary | Summary of Care ---
Author Name Unknown Organization [facility] Address [address] [place] [address] Phone [phone] Care Team Providers Care Subgrade Tester Name Role Phone Xiomara Sapp MD Primary Care Prov ider Reason for Visit * Reason Onset Date Comments Advice 06/14/2024 Encounter Details Date Type Department Care Team (Late st Contact Info) Description 06/14/2024 Telephone Urology [facility] [address] [place] [address] Bear Craven MD [address] [place] [phone] Advice Allergies Active Allergy Reactions Criticality Noted Date Comments Sulfa Antibiotics 10/16/2003 Unknown reaction Vancomycin Low 06/17/2022 Other reaction(s): red, itchy Other reaction(s): red, itchy documented as of this encounter (statuses as of 06/14/2024) Medications VITAMIN D3 5000 UNITS PO CAPS 1 CAPSULE DAILY 03/31/20 14 Active Magnesium Oxide 400 MG Tablet TAKE ONE TABLET BY MOUTH EVERY DAY 90 Tab 1 12/20/19 15 Active acetaminophen (TYLENOL) 325 MG Tablet Take 1 Tablet by mouth every 6 hours as needed for Pain. Active Econazole Nitrate 1 % External Cream (Spectazole)Indic ations:Tinea pedis of both feet APPLY TO AFFECTED AREA TWICE DAILY 85 g 11/26/19 22 Active Folic Acid 1 MG Oral Tablet Take 1 Tablet by mouth in the morning. Active B-12 5000 MCG Oral Capsule Take by mouth 1 Capsule daily . Active Furosemide 40 MG Oral Tablet (Lasix)Indication s:Bilateral edema of lower extremity Take 1 Tablet by mouth daily as needed (swelling). for fluid accumulation or weight gain 30 Tablet 3 11/17/19 23 Active Ezetimibe 10 MG Oral Tablet (Zetia) Take 1 Tablet by mouth in the morning. 90 Tablet 3 03/28/20 23 Active Potassium Chloride Kath ER 10 MEQ Oral Tablet Extended ReleaseIndication s:Localized edema Take one tablet in the morning when you take the furosemide water pill only 30 Tablet 11 03/28/20 23 Active Meloxicam 15 MG Oral TabletIndications :Primary osteoarthritis of left knee Take 1/2 to 1 tablet daily as needed for pain. 30 Tablet 5 05/23/20 23 Active quiNINE Sulfate 324 MG Oral Capsule (Qualaquin)Indica tions:Gastroesoph ageal reflux disease without esophagitis Take 1 Capsule by mouth every night at bedtime. as needed for cramping. 20 Capsule 11 07/03/19 24 Active Omeprazole 20 MG Oral Capsule Delayed Release (PriLOSEC)Indicat ions:GERD (gastroesophageal reflux disease) Take 1 Capsule by mouth in the morning. 1 hour before the first meal of the day. 90 Capsule 3 08/14/19 24 Active Azelastine HCl 0.1 % Nasal Solution (Astelin)Indicati ons:Other chronic sinusitis,Polyp of nasal cavity administer into each nostril 2 sprays 2 times a day as needed for rhinitis. 30 mL 1 09/26/19 24 Active Fluticasone Propionate 50 MCG/ACT Nasal Suspension (Flonase)Indicati ons:Other chronic sinusitis,Polyp of nasal cavity use 2 sprays in each nostril daily 48 g 1 01/17/20 24 Active Tamsulosin HCl 0.4 MG Oral Capsule (Flomax) Take 1 Capsule by mouth in the morning. 30 Capsule 6 03/01/20 24 Active Finasteride 5 MG Oral Tablet (Proscar) Take 1 Tablet by mouth in the morning. 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 100 Tablet 3 04/21/20 24 Active Metoprolol Succinate ER 25 MG Oral Tablet Extended Release 24 Hour (Toprol XL) Take 1.5 Tablets by mouth in the morning. 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 Increased risk for hereditary hemochromatosis. S/P hip [...] 11/29/2023 Does the household have a re gular source of income? (Household - for ages [...] No 11/13/2020 9:10 PM Rohini Nolan LPN documented as of this encounter Mental Status * Because of a physical, mental, or emotional condition, do you have serious difficulty concentrating, remembering, or making decisions? (5 years old or older) Answer Entry Date Author No 11/13/2020 9:10 PM Rohini Nolan LPN documented in this encounter Miscellaneous Notes * Telephone Encounter - Karley Higginbotham OSA - 06/14/2024 10:01 AM EST Patient would like a call back. He thinks he has a UTI. Please advise. documented in this encounter Plan of Treatment Upcoming Encounters Date Type Department Care Team (Late st Contact Info) Description 06/18/2024 9:30 AM EST Anticoagulation Pharmacy, [address] [place] [address] [place] [address] 08/05/2024 8:40 AM EST Office Visit Dermatology [address] [place] [address] Maribel Cazares PA-C [address] [place] [address] [place] [address] 08/21/2024 11:15 AM EST Office Visit Urology, [facility] 132 [facility] [place] [address] Bear Craven MD [address] [place] [address] 10/07/2024 10:00 AM EDT Laboratory Laboratory [facility] [address] [place] [phone] [place], Lab Scenery [address] [place] [address] 10/14/2024 12:30 PM EDT Office Visit Hematology/Oncology [facility] [address] [place] [phone] Genna Can [facility] [place] [phone] 11/26/2024 1:00 PM EDT Office Visit Family Medicine [address] [place] [phone] Sheri Carpio CRNP [address] [place] [address] [place] [address] 06/09/2025 8:20 AM EST Office Visit Family Medicine [address] [place] [phone] Xiomara Sapp MD [address] [place] [address] [place] [address] Health Maintenance Due Date Last Done Comments [...] Not on filedocumented as of this encounter Advance Directives * Full Code (Latest Code Status on File) Date Activated Date Inactivated Comments 11/13/2020 4:45 PM 11/14/2020 5:13 PM Question Answer Comments Discussion of Advance Directives occurred with: Not Discussed Care Teams Subgrade Tester Relationship Specialty Start Date End Date Xiomara Sapp MD [address] [place] [address] [place] [phone] PCP - General Family Medicine 11/16/22 documented as of this encounter
--- OUTSIDE RECORDS SUMMARY | 2024-06-24 23:44 | External Medical Summary | Summary of Care ---
Author Name Unknown Organization [facility] Address [address] [place] [address] Phone [phone] Care Team Providers Care Micro Paleontologist Name Role Phone Xiomara Sapp MD Primary Care Prov ider Reason for Visit * Reason Onset Date Comments Test Results 04/12/2024 Watch for UC&S r esults Advice 04/12/2024 Encounter Details Date Type Department Care Team (Late st Contact Info) Description 04/12/2024 Telephone Urology, [facility] [address] [place] [address] Services, Scheduling [address] [place] [address] Test Results (Watch for UC&S results ); Ad... Allergies Active Allergy Reactions Criticality Noted Date [...] mouth in the morning. 90 Tablet 3 Active Nitrofurantoin Monohyd Macro 100 MG Oral Capsule (Macrobid) Take 1 Capsule by mouth in the morning and 1 Capsule before bedtime. With food.. 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 Increased risk for hereditary hemochromatosis. S/P hip [...] encounter Miscellaneous Notes * Telephone Encounter - Alisa Bowden LPN - 06/14/2024 1:48 PM EST Spoke with pt, aware of rx. Will hold telephone encounter to monitor for results. * Addendum Note - Bear Raines MD - 06/14/2024 1:44 PM ESTAddended by: BEAR RAINES on: 06/14/2024 01:44 PM Modules accepted: Orders * Telephone Encounter - Bear Raines MD - 06/14/2024 1:43 PM EST Noted. Prescription for Macrobid provided for patient for the hol week. Follow-up urine culturewhen available for final [...] abdomen. Patient is going to go to [place] to give a new urine sample. Do you want to wait for results prior to treating. He uses [facility] in [place]. Please advise. Patient has concern for developing [...] - 04/12/2024 3:03 PM EDTAddended by: BEAR RAINES on: 04/12/2024 03:03 PM Modules accepted: [...] before the weekend Caller was transferred to [facility] at the clinic. documented in this encounter Plan of Treatment Upcoming Encounters Date Type Department Care Team (Late st Contact Info) Description 06/18/2024 9:30 AM EST Anticoagulation Pharmacy, [address] [place] [address] [place] [address] 08/05/2024 8:40 AM EST Office Visit Dermatology [address] [place] [address] Maribel Cazares PA-C [address] [place] [address] [place] [address] 08/21/2024 11:15 AM EST Office Visit Urology, [facility] 132 [facility] [place] [address] Bear Raines MD 27 [facility] [place] [phone] 10/07/2024 10:00 AM EDT Laboratory Laboratory [facility] [address] [place] [phone] [place], [facility] [address] [facility] [place] [address] 10/14/2024 12:30 PM EDT Office Visit Hematology/Oncology [facility] [address] [place] [phone] Genna Can MD [address] [place] [address] [place] [phone] 11/26/2024 1:00 PM EDT Office Visit [address] [phone] Sheri Carpio CRNP [address] [place] [address] [place] [address] 06/09/2025 8:20 AM EST Office Visit [address] [phone] Xiomara Sapp MD [address] [place] [address] [place] [address] Pending Results Name Type Priority Associated Diagnoses [...] Directives occurred with: Not Discussed Care Teams Micro Paleontologist Relationship Specialty Start Date End Date Xiomara Sapp MD [address] [place] [address] [place] [phone] PCP - General Family Medicine 11/16/22 documented as of this encounter
--- OUTSIDE RECORDS SUMMARY | 2024-06-24 23:44 | External Medical Summary | Summary of Care ---
Author Name Unknown Organization [facility] Address [address] [place] [address] Phone [phone] Care Team Providers Care Import/Export Analyst Name Role Phone Xiomara Sapp MD Primary Care Prov ider Reason for Visit * Reason Onset Date Comments Advice 06/14/2024 Encounter Details Date Type Department Care Team (Late st Contact Info) Description 06/14/2024 Telephone Urology Herb Montejo [address] [place] [address] Bear Craven MD [address] [place] [phone] Advice Allergies Active Allergy Reactions Criticality Noted [...] thrombosis),Histo ry of pulmonary embolism,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 Increased risk for hereditary hemochromatosis. S/P hip [...] encounter Miscellaneous Notes * Telephone Encounter - Johanne Calvo LPN - 06/14/2024 10:25 AM EST Duplicate encounter * Telephone Encounter - Karley Higginbotham OSA - 06/14/2024 10:01 AM EST Patient would like a call back. He thinks he has a UTI. Please advise. documented in this encounter Plan of Treatment Upcoming Encounters Date Type Department Care Team (Late st Contact Info) Description 06/18/2024 9:30 AM EST Anticoagulation Pharmacy, [address] [place] [address] [place] [address] 08/05/2024 8:40 AM EST Office Visit Dermatology [address] [place] [address] Maribel Cazares PA-C [address] [place] [address] [place] [address] 08/21/2024 11:15 AM EST Office Visit Urology, [facility] 132 [facility] [place] [address] Bear Craven MD [address] [place] [address] 10/07/2024 10:00 AM EDT Laboratory Laboratory [facility] [address] [place] [phone] [facility] [address] [place] [address] 10/14/2024 12:30 PM EDT Office Visit Hematology/Oncology [facility] [address] [place] [phone] Genna Can [facility] [place] [phone] 11/26/2024 1:00 PM EDT Office Visit [address] [place] [phone] Sheri Carpio CRNP [address] [place] [address] [place] [address] 06/09/2025 8:20 AM EST Office Visit [address] [place] [phone] Xiomara Sapp MD [address] [place] [address] [place] [address] Health Maintenance Due Date Last Done Comments [...] Directives occurred with: Not Discussed Care Teams Import/Export Analyst Relationship Specialty Start Date End Date Xiomara Sapp MD [address] [place] [address] [place] [address] PCP - General Family Medicine 11/16/22 documented as of this encounter
--- OUTSIDE RECORDS SUMMARY | 2024-06-24 23:44 | External Medical Summary | Summary of Care ---
Author Name Unknown Organization [facility] Address [address] [place] [place] [place] [address] Phone [phone] Care Team Providers Care Mutuel Department Manager Name Role Phone Xiomara Sapp MD Primary Care Prov ider Reason for Visit * Reason Comments Dosage Adjustment In Person (Anticoag Cl inic) Encounter Details Date Type Department Care Team (Latest Contact Info) Description 06/18/2024 9:30 AM [facility] Anticoagulation Pharmacy, [address] [place] [address] [place] [address] Anticoagulation management encounter*; History of DVT (deep vein thrombosis); History of pulmonary embolism Allergies Active Allergy Reactions Criticality Noted Date Comments Sulfa Antibiotics 10/16/2003 Unknown reaction Vancomycin Low 06/17/2022 Other reaction(s): red, itchy Other reaction(s): red, itchy documented as of this encounter (statuses as of 06/18/2024) Medications VITAMIN D3 5000 UNITS PO CAPS [...] Active Warfarin Sodium 5 MG Oral Tablet (Jantoven)Indicat ions:History of DVT (deep vein thrombosis),Histo ry of pulmonary embolism,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 100 Tablet 3 04/21/20 24 Active Metoprolol Succinate ER 25 MG Oral Tablet Extended Release 24 Hour (Toprol XL) Take 1.5 Tablets by mouth in the morning. 45 Tablet 5 06/06/20 Active Nitrofurantoin Monohyd Macro 100 MG Oral Capsule (Macrobid) Take 1 Capsule by mouth in the morning and 1 Capsule before bedtime. With food.. 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 Increased risk for hereditary hemochromatosis. S/P hip [...] as of this encounter (statuses as of 06/18/2024) Resolved Problems Problem Noted Date Diagnosed Date [...] as of this encounter (statuses as of 06/18/2024) Immunizations Name Administration Dates Next Due COVID-19 [...] Rohini Nolan LPN documented in this encounter Progress Notes * Halima Rodriguez RPh - 06/18/2024 9:26 AM EST Medication Therapy Disease Management - Anticoagulation Patient: Raghavendra Gramajo | : 1940 Subjective Patient-Reported Symptoms: Patient Findings Negatives: Signs/symptoms of thrombosis, Signs/symptoms of bleeding, Change in health, Change in alcohol use, Change in activity, Upcoming invasive procedure, Missed doses, Extra doses, Change in medications, Change in diet/appetite, Bruising Objective Current Warfarin Dose As of 06/18/2024 Warfarin maintenance plan: 7.5 mg (5 mg x 1.5) every Mon, Wed, Fri; 5 mg (5 mg x 1) all other days INR Result As of 06/18/2024 INR goal: 2.0-3.0 INR used for dosin.4 (06/18/2024) Assessment & Plan Warfarin Plan As of 06/18/2024 Full warfarin instructions: 7.5 mg every Mon, Wed, Fri; 5 mg all other days No change documented: Halima Rodriguez charla Next INR check: 07/02/2024 Repeat PT/INR in 2 week(s) Weekly dose: not changed Additional Dosing Information: I spent a total of 10-19 minutes (exact time 10 mins) on the date of service in preparation, delivery, and documentation of the care provided to Raghavendra Gramajo excluding any time spent in the performance of separately billed services or time spent by another provider/QHP. Halima Rodriguez RP Clinical Pharmacist 06/18/2024, 9:26 AM documented in this encounter Plan of Treatment Upcoming Encounters Date Type Department Care Team (Late st Contact Info) Description 07/02/2024 11:50 AM EST Anticoagulation Pharmacy, [address] [place] [address] [place] [address] 08/05/2024 8:40 AM EST Office Visit Dermatology [address] [place] [address] Maribel Cazares PA-C [address] [place] [address] [place] [address] 08/21/2024 11:15 AM EST Office Visit Urology, [facility] [address] [facility] [place] [address] Bear Craven MD [address] [place] [address] 10/07/2024 10:00 AM EDT Laboratory Laboratory [facility] [address] [place] [phone] [facility] [address] [place] [address] 10/14/2024 12:30 PM EDT Office Visit Hematology/Oncology [facility] [address] [place] [phone] Genna Can MD [address] [facility] [place] [phone] 11/26/2024 1:00 PM EDT Office Visit Family Medicine [address] [place] [phone] Sheri Carpio CRNP [address] [place] [address] [place] [address] 06/09/2025 8:20 AM EST Office Visit Family Medicine [address] [place] [phone] Xiomara Sapp MD [address] [place] [address] [place] [address] Health Maintenance Due Date Last Done Comments [...] Not on filedocumented as of this encounter Procedures Procedure Name Priority Date/Time Associated Diagnosis Comments INR FINGERSTICK, POINT OF CARE STAT 06/18/2024 9:30 AM EST Anticoagulation management encounter documented in this encounter Results * INR FINGERSTICK, POINT OF CARE (06/18/2024 9:30 AM EST) Fingerstick INR 2.4 INR 9:31 AM EST [facility] 55-00 Blood 06/18/2024 9:30 AM EST 06/18/2024 9:31 AM EST Narrative [facility] 55-00 - 06/18/2024 9:31 AM EST Therapeutic ranges for non-operative patients: Prophylaxsis/treatment of DVT: (Range:2.0-3.0) Treatment of pulmonary embolism:(Range:2.0-3.0) Prevention of systemic embolism from: -tissue heart valves -acute myocardial infarction -valvular heart disease -atrial fibrillation (Range: 2.0-3.0) Mechanical prosthetic valves: (Range: 2.5-3.5) Halima Rodriguez [facility] POINT OF CARE TEST DOCKED DEVICE UNSOLICITED RESULTS Final Result [facility] [place] [address] [place] [address] [place] [address] documented in this encounter Visit Diagnoses Diagnosis Anticoagulation management encounter- Primary Encounter for therapeutic drug monitoring History of DVT (deep vein thrombosis) Personal history of venous thrombosis and embolism History of pulmonary embolism Personal history of pulmonary embolism documented in this encounter Advance Directives * Full Code (Latest Code Status on File) Date Activated Date Inactivated Comments 11/13/2020 4:45 PM 11/14/2020 5:13 PM Question Answer Comments Discussion of Advance Directives occurred with: Not Discussed Care Teams Mutuel Department Manager Relationship Specialty Start Date End Date Xiomara Sapp MD [address] [place] [address] [place] [address] PCP - General Family Medicine 11/16/22 documented as of this encounter"
--- OUTSIDE RECORDS SUMMARY | 2024-06-24 23:44 | External Medical Summary ---
Author Name Unknown Address Unknown Organization : Laboratory Report Ordering Provider Test Date Status ENZO COTO 06/18/2024 09:30:27 Final Therapeutic ranges for non-o perative patients:
Prophylaxsis/treatment of DVT: (Range:2.0-3.0)
Treatment of pulmonary embolism:(Range:2.0-3.0)
Prevention of systemic embolism from:
-tissue heart valves
-acute myocardial infarction
-valvular heart disease
-atrial fibrillation
(Range: 2.0-3.0)
Mechanical prosthetic valves: (Range: 2.5-3.5) Observation Date Value Abnormality Reference (Units ) Status INR in Capillary blood by Coagulation assay 06/18/2024 09:30:27 2.4 (INR) Final Performing Location
--- OUTSIDE RECORDS SUMMARY | 2024-06-24 23:44 | External Medical Summary | Summary of Care ---
Author Name Unknown Organization [facility] Address [address] [place] [address] Phone [phone] Care Team Providers Care Publications Writer Name Role Phone Xiomara Sapp MD Primary Care Prov ider Reason for Visit * Reason Comments Outpatient Testing Encounter Details Date Type Department Care Team (Late st Contact Info) Description 06/14/2024 12:00 PM EST Laboratory Laboratory [address] [place] [phone] [place] [address] BPH with urinary obstruction; Detrusor areflexia; Dysuria; Acute cystitis without hematuria Allergies Active Allergy Reactions Criticality Noted Date [...] thrombosis),Histo ry of pulmonary embolism,Anticoag ulation management encounter,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 Increased risk for hereditary hemochromatosis. S/P hip [...] Rohini Nolan LPN documented in this encounter Plan of Treatment Upcoming Encounters Date Type Department Care Team (Late st Contact Info) Description 06/18/2024 9:30 AM EST Anticoagulation Pharmacy, [address] [place] [address] [place] [address] 08/05/2024 8:40 AM EST Office Visit Dermatology [address] [place] [address] Maribel Cazares PA-C [address] [place] [address] [place] [address] 08/21/2024 11:15 AM EST Office Visit Urology, [facility] [address] [facility] [place] [address] Bear Craven MD [address] [place] [address] 10/07/2024 10:00 AM EDT Laboratory Laboratory [facility] [address] [place] [phone] [facility] [address] [facility] [place] [address] 10/14/2024 12:30 PM EDT Office Visit Hematology/Oncology [facility] [address] [place] [phone] Genna Can MD [address] [facility] [place] [phone] 11/26/2024 1:00 PM EDT Office Visit Family Medicine [address] [place] [phone] Sheri Carpio CRNP [address] [place] [address] [place] [address] 06/09/2025 8:20 AM EST Office Visit Family Medicine [address] [place] [phone] Xiomara Sapp MD [address] [place] [address] [place] [address] Pending Results Name Type Priority Associated Diagnoses Date /Time CULTURE, URINE, QUANTITATIVE Lab Routine BPH with urinary obstruction Detrusor areflexia Dysuria Acute cystitis without hematuria 06/14/2024 12:00 PM EST Health Maintenance Due Date Last Done Comments [...] encounter Visit Diagnoses Diagnosis BPH with urinary obstruction Hypertrophy of prostate with urinary obstruction and other lower urinary tract symptoms (LUTS) Detrusor areflexia Atony of bladder Dysuria Acute cystitis without hematuria Acute cystitis documented in this encounter Advance Directives * Full Code (Latest Code Status on File) Date Activated Date Inactivated Comments 11/13/2020 4:45 PM 11/14/2020 5:13 PM Question Answer Comments Discussion of Advance Directives occurred with: Not Discussed Care Teams Publications Writer Relationship Specialty Start Date End Date Xiomara Sapp MD [address] [place] [address] [place] [address] PCP - General Family Medicine 11/16/22 documented as of this encounter
--- OUTSIDE RECORDS SUMMARY | 2024-06-24 23:44 | External Medical Summary | Summary of Care ---
Author Name Unknown Organization [facility] Address [address] [place] [address] Phone [phone] Care Team Providers Care Bi Technical Lead Name Role Phone Xiomara Sapp MD Primary Care Prov ider Reason for Visit * Reason Onset Date Comments Test Results 04/12/2024 Advice 04/12/2024 Encounter Details Date Type Department Care Team (Late st Contact Info) Description 04/12/2024 Telephone Urology, [facility] [address] [place] [address] Services, Scheduling [address] [place] [address] Test Results; Advice Allergies Active Allergy Reactions [...] thrombosis),Hist ory of pulmonary embolism,Anticoa gulation management encounter,detention current use of anticoagulant therapy take 7.5mg [...] 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 Increased risk for hereditary hemochromatosis. S/P hip [...] No 11/29/2023 Does the household have [facility]? (Household - for ages [...] Encounter - Johanne Calvo LPN - 06/14/2024 10:27 AM EST Patient states his urine is dark brown, has concern for infection. He is achy/uncomfortable in his lower abdomen. Patient is going to go to [place] to give a new urine sample. Do you want to wait for results prior to treating. He uses [facility] in [place]. Please advise. * Telephone Encounter - Johanne Calvo LPN - 06/14/2024 9:56 AM EST [email or web address] * Telephone Encounter - Krystal Aparicio OSA - 06/14/2024 9:37 AM EST Pt thinks he has a UTI. Pt requesting Ciprix. Please advice on this. * Telephone Encounter - Johanne Calvo LPN - 04/12/2024 3:12 PM EDT Patient aware and verbalized understanding. * Addendum Note - Bear Raines MD - 04/12/2024 3:03 PM EDTAddended by: BEAR RAINES on: 04/12/2024 03:03 PM Modules accepted: Orders * Telephone Encounter - Bear Raines MD - 04/12/2024 3:02 PM EDT Rx for cipro sent to pharmacy. Thx, HM * Telephone Encounter - Johanne Calvo LPN - 04/12/2024 1:31 PM EDT Patient states his symptoms have been ongoing for 2 weeks and can not go another weekend without treatment. Patient is asking for medication to treat his urinary infection. Prelim results are charted. Please advise. Johanne Cardoso LPN * Telephone Encounter - Monet Toscano OSA - 04/12/2024 1:26 PM EDT Reason for patient's call Pt had labs done 04/09/24 and is having UTI symptoms asking for results and if something will be called in before the weekend Caller was transferred to [facility] at the clinic. documented in this encounter Plan of Treatment Upcoming Encounters Date Type Department Care Team (Late st Contact Info) Description 06/18/2024 9:30 AM EST Anticoagulation Pharmacy, [address] [place] [address] [place] [address] 08/05/2024 8:40 AM EST Office Visit Dermatology [address] [place] [address] Maribel Cazares PA-C [address] [place] [address] [place] [address] 08/21/2024 11:15 AM EST Office Visit Urology, [facility] [address] [facility] [place] [address] Bear Raines MD [address] [place] [address] 10/07/2024 10:00 AM EDT Laboratory Laboratory [facility] [address] [place] [phone] [facility] [address] [facility] [place] [address] 10/14/2024 12:30 PM EDT Office Visit Hematology/Oncology [facility] [address] [place] [phone] Genna Can MD [address] [facility] [place] [phone] 11/26/2024 1:00 PM EDT Office Visit Family [address] [phone] Sheri Carpio CRNP [address] [place] [address] [place] [address] 06/09/2025 8:20 AM EST Office Visit Family [address] [place] [phone] Xiomara Sapp MD [address] [place] [address] [place] [address] Health Maintenance Due Date Last Done Comments [...] Directives occurred with: Not Discussed Care Teams Bi Technical Lead Relationship Specialty Start Date End Date Xiomara Sapp MD [address] [place] [address] [place] [address] PCP - General Family Medicine 11/16/22 documented as of this encounter
--- OUTSIDE RECORDS SUMMARY | 2024-06-24 23:45 | External Medical Summary ---
Author Name Unknown Address Unknown Organization : Laboratory Report Ordering Provider Test Date Status ENZO COTO 05/20/2024 10:07:30 Final Therapeutic ranges for non-o perative patients:
Prophylaxsis/treatment of DVT: (Range:2.0-3.0)
Treatment of pulmonary embolism:(Range:2.0-3.0)
Prevention of systemic embolism from:
-tissue heart valves
-acute myocardial infarction
-valvular heart disease
-atrial fibrillation
(Range: 2.0-3.0)
Mechanical prosthetic valves: (Range: 2.5-3.5) Observation Date Value Abnormality Reference (Units ) Status INR in Capillary blood by Coagulation assay 05/20/2024 10:07:30 2.5 (INR) Final Performing Location
--- OUTSIDE RECORDS SUMMARY | 2024-06-24 23:45 | External Medical Summary | Summary of Care ---
Author Name Unknown Organization [facility] Address [address] [place] [address] Phone [phone] Care Team Providers Care Molecular Modeler Name Role Phone Xiomara Sapp MD Primary Care Prov ider Encounter Details Date Type Department Care Team (Late st Contact Info) Description 2024 Orders Only PATIENT PORTAL DO NOT DELETE THIS DEPT USED BY DENISE CHINCHILLADAMION HART [id number] Allergies Active Allergy Reactions Criticality Noted Date Comments Sulfa Antibiotics 10/16/2003 Unknown reaction Vancomycin Low 06/17/2022 Other reaction(s): red, itchy Other reaction(s): red, itchy documented as of this encounter (statuses as of 2024) Medications Medication Sig Dispensed Refills Start Date End Date Status VITAMIN D3 5000 UNITS PO CAPS 1 CAPSULE DAILY 03/31/2014 Active Magnesium Oxide 400 MG Tablet TAKE ONE TABLET BY MOUTH EVERY DAY 90 Tab 1 12/19/2014 Active acetaminophen (TYLENOL) 325 MG Tablet Take 1 Tablet by mouth every 6 hours as needed for Pain. Active Econazole Nitrate 1 % External Cream (Spectazole)Indicat ions:Tinea pedis of both feet APPLY TO AFFECTED AREA TWICE DAILY 85 g 11/25/2021 Active Folic Acid 1 MG Oral Tablet Take 1 Tablet by mouth in the morning. Active B-12 5000 MCG Oral Capsule Take by mouth 1 Capsule daily . Active Furosemide 40 MG Oral Tablet (Lasix)Indications: Bilateral edema of lower extremity Take 1 Tablet by mouth daily as needed (swelling). for fluid accumulation or weight gain 30 Tablet 3 11/16/2022 Active Ezetimibe 10 MG Oral Tablet (Zetia) Take 1 Tablet by mouth in the morning. 90 Tablet 3 03/28/2023 Active Potassium Chloride Kath ER 10 MEQ Oral Tablet Extended ReleaseIndications: Localized edema Take one tablet in the morning when you take the furosemide water pill only 30 Tablet 11 03/28/2023 Active Meloxicam 15 MG Oral TabletIndications:P rimary osteoarthritis of left knee Take 1/2 to 1 tablet daily as needed for pain. 30 Tablet 5 05/23/2023 Active quiNINE Sulfate 324 MG Oral Capsule (Qualaquin)Indicati ons:Gastroesophagea l reflux disease without esophagitis Take 1 Capsule by mouth every night at bedtime. as needed for cramping. 20 Capsule 11 07/03/2023 Active Omeprazole 20 MG Oral Capsule Delayed Release (PriLOSEC)Indicatio ns:GERD (gastroesophageal reflux disease) Take 1 Capsule by mouth in the morning. 1 hour before the first meal of the day. 90 Capsule 3 08/14/2023 Active Azelastine HCl 0.1 % Nasal Solution (Astelin)Indication s:Other chronic sinusitis,Polyp of nasal cavity administer into each nostril 2 sprays 2 times a day as needed for rhinitis. 30 mL 1 09/26/2023 Active Digoxin 125 MCG Oral Tablet (Lanoxin)Indication s:Paroxysmal SVT (supraventricular tachycardia) (HCC) TAKE ONE TABLET BY MOUTH EVERY DAY 90 Tablet 3 10/03/2023 Active Fluticasone Propionate 50 MCG/ACT Nasal Suspension (Flonase)Indication s:Other chronic sinusitis,Polyp of nasal cavity use 2 sprays in each nostril daily 48 g 1 01/17/2024 Active Tamsulosin HCl 0.4 MG Oral Capsule (Flomax) Take 1 Capsule by mouth in the morning. 30 Capsule 6 03/01/2024 Active Cefdinir 300 MG Oral Capsule (Omnicef) Take 1 Capsule by mouth in the morning and 1 Capsule before bedtime. 20 Capsule 03/13/2024 Active Additional Information Patient not taking.Reported on 03/27/2024 Finasteride 5 MG Oral Tablet (Proscar) Take 1 Tablet by mouth in the morning. 90 Tablet 3 03/27/2024 Active Ciprofloxacin HCl 500 MG Oral Tablet (Cipro) Take 1 Tablet by mouth in the morning and 1 Tablet before bedtime. 20 Tablet 04/12/2024 Active Metoprolol Tartrate 25 MG Oral Tablet (Lopressor)Indicati ons:Paroxysmal SVT (supraventricular tachycardia) (HCC) TAKE 1/2 TABLET BY MOUTH EVERY 12 HOURS 90 Tablet 3 04/21/2024 Active Warfarin Sodium 5 MG Oral Tablet (Jantoven)Indicatio ns:History of DVT (deep vein thrombosis),History of pulmonary embolism,Anticoagul ation management encounter,halfway current use of anticoagulant therapy take 7.5mg (1.5 tablets) on Tuesdays, and saturdays; take 5mg (1 tablet) all other days or as directed by anticoagulation clinic. 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 Increased risk for hereditary hemochromatosis. S/P hip replacement, right 08/26/2017 Overview: Philippe Warfarin anticoagulation 06/14/2017 BPH with obstruction/lower urinary tract symptom s 04/17/2017 History of DVT (deep vein thrombosis) 02/17/2017 S/P lumbar laminectomy 02/02/2017 Incomplete right bundle branch block 11/03/2016 Carotid artery aneurysm 07/11/2016 Personal history of other malignant neoplasm of skin 01/21/2015 Overview: squamous cell carcinoma (L jawline 03/18) basal cell carcinoma (nasal tip, L antihelix 03/18) History of TIA (transient ischemic attack) 09/12 Aortic root dilation 08/24/2014 OA (osteoarthritis) of knee 07/29/2014 Paroxysmal SVT (supraventricular tachycardia) ADVANCE DIRECTIVE INFORMATION 03/01/2006 Overview: No, Advance Directive brochure given to patient. Dyslipidemia, goal LDL below 130 History of pulmonary embolism documented as of this encounter (statuses as of 2024) Resolved Problems Problem Noted Date Diagnosed Date Resolved Date Encounter for examination fo r normal comparison and control in clinical research program 04/12/2018 04/18/2018 Overview: Diagnosis changed due to Research Module. Go to Snapshot for study details. Primary osteoarthritis of right hip 04/17/2017 03/02/2018 Right lumbar radiculitis 12/20/2016 Neck mass 07/31/2015 08/07/2017 Actinic keratosis 01/21/2015 03/02/2017 Chest pain, non-cardiac 06/04/201212/2017 Dyslipidemia, goal to be determined 01/05/2009 02/14/2012 Chest pain 03/20/2007 06/04/2012 Acute cholecystitis 10/16/2003 10/18/19 14 Back disorder 01/27/2015 documented as of this encounter (statuses as of 2024) Immunizations Name Administration Dates Next Due COVID-19 mRNA, LNP-s, No Pre serve, 2-Dose Series ([employer]) 10/22/2020,10/01/2020 COVID-19, LNP-s, No Preserve , Cordell-sucrose, [...] Recorded Sex Assigned at Not on file Gender Identity Not on file Sexual Orientation Not on file Job Start Date Occupation Industry Not on file Not on file Not on file documented as of this encounter Functional Status Functional Status Response Date of Assess ment Are you deaf or do you have serious difficulty h earing? No 11/13/2020 Are you blind or do you have serious difficulty seeing, even when wearing glasses? No 11/13/2020 Do you have difficulty dress ing or bathing? (5 years old or older) No 11/13/2020 Because of a physical, menta l, or emotional condition, do you have difficulty doing errands alone such as visiting a doctor s office or shopping? (15 years old or older) No 11/14/19 Cognitive Status Response Date of Assessm ent Because of a physical, menta l, or emotional condition, do you have serious difficulty concentrating, remembering, or making decisions? (5 years old or older) No 11/13/2020 documented as of this encounter Plan of Treatment Upcoming Encounters Date Type Department Care Team (Late st Contact Info) Description 04/25/2024 11:50 AM EDT Anticoagulation Pharmacy, [address] [place] [id number] [place] [address] 06/03/2024 11:00 AM EST Office Visit Family Medicine [address] [place] [phone] Sheri Carpio CRNP [address] [place] [address] [place] [address] 06/06/2024 10:00 AM EST Office Visit Cardiology, [facility] [address] [facility] [place] [address] Iain Ward PA-C [address] [facility] [place] [address] 07/03/2024 8:40 AM EST Office Visit Dermatology [address] [place] [address] Maribel Cazares PA-C [address] [place] [address] [place] [address] 08/21/2024 11:15 AM EST Office Visit Urology, [facility] [address] [facility] [place] [address] Bear Craven MD [address] [place] [address] 10/07/2024 10:00 AM EDT Laboratory Laboratory [facility] [address] [place] [phone] [facility] [address] [facility] [place] [address] 10/14/2024 12:30 PM EDT Office Visit Hematology/Oncology [facility] [address] [place] [phone] Genna Can MD [address] [place] [place] [phone] Health Maintenance Due Date Last Done Comments Adult Wellness Visit 06/09/2016 06/09/2015 COVID-19 Vaccine ( season) 2024 08/03/2021, 10/22/2020, 10/01/2020 Influenza Vaccine (FLU shot) (#1) 2024 03/10/2023, 03/28/2022, 03/12/2021, Additional history exists Depression Screening 11/28/2024 11/29/2023 DIG LEVEL FOR MEDICATION MONITORING YEARLY 12/05/2024 12/06/2023, 11/17/2022, 10/22/2021, Additional history exists GFR 02/20/2025 02/21/2024, 09/2022, 04/27/2023, Additional history [...] Directives occurred with: Not Discussed Care Teams Molecular Modeler Relationship Specialty Start Date End Date Xiomara Sapp MD [address] [place] [address] [place] [id number] PCP - General Family Medicine 11/16/22 documented as of this encounter
--- OUTSIDE RECORDS SUMMARY | 2024-06-24 23:45 | External Medical Summary ---
Author Name Unknown Address Unknown Organization : Laboratory Report Ordering Provider Test Date Status ENZO COTO 06/10/2024 09:41:15 Final Therapeutic ranges for non-o perative patients:
Prophylaxsis/treatment of DVT: (Range:2.0-3.0)
Treatment of pulmonary embolism:(Range:2.0-3.0)
Prevention of systemic embolism from:
-tissue heart valves
-acute myocardial infarction
-valvular heart disease
-atrial fibrillation
(Range: 2.0-3.0)
Mechanical prosthetic valves: (Range: 2.5-3.5) Observation Date Value Abnormality Reference (Units ) Status INR in Capillary blood by Coagulation assay 06/10/2024 09:41:15 2.8 (INR) Final Performing Location
--- OUTSIDE RECORDS SUMMARY | 2024-06-24 23:45 | External Medical Summary | Summary of Care ---
Author Name Unknown Organization [facility] Address [address] [place] [address] Phone [phone] Care Team Providers Care Photogrammetric Tech Name Role Phone Xiomara Sapp MD Primary Care Prov ider Reason for Visit * Reason Comments Re-Check Encounter Details Date Type Department Care Team (Latest Contact Info) Description 06/07/2024 2:40 PM EST Office Visit Family Medicine [address] [phone] Sheri Carpio [address] [place] [phone] Loss of weight*; Paroxysmal SVT (supraventricular tachycardia) ([facility]); Essential (primary) hypertension; Hereditary hemochromatosis ([facility]) Allergies Active Allergy Reactions Criticality Noted Date Comments Sulfa Antibiotics 10/16/2003 Unknown reaction Vancomycin Low 06/17/2022 Other reaction(s): red, itchy Other reaction(s): red, itchy documented as of this encounter (statuses as of 06/07/2024) Medications VITAMIN D3 5000 UNITS PO CAPS [...] thrombosis),Histo ry of pulmonary embolism,Anticoag ulation management encounter,longterm current use of anticoagulant therapy take 7.5mg [...] as of this encounter (statuses as of 06/07/2024) Active Problems Problem Noted Date Diagnosed Date [...] 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 Increased risk for hereditary hemochromatosis. S/P hip [...] as of this encounter (statuses as of 06/07/2024) Resolved Problems Problem Noted Date Diagnosed Date [...] as of this encounter (statuses as of 06/07/2024) Immunizations Name Administration Dates Next Due COVID-19 [...] Date Smoking Tobacco: Never Smokeless Tobacco: Never Tobacco Cessation:Counseling Given: Not Answered Alcohol Use Standard Drinks/Week Comments No 0 [...] on file documented as of this encounter Last Filed Vital Signs Vital Sign Reading Time Taken Comments Blood Pressure 110/54 06/07/2024 2:21 PM EST Pulse 54 06/07/2024 2:21 PM EST Temperature 36.2 C (97.1 F) 06/07/2024 2:21 PM ES T Respiratory Rate 16 06/07/2024 2:21 PM EST Oxygen Saturation 97% 06/07/2024 2:21 PM EST Inhaled Oxygen Concentration - - Weight 72.6 kg (160 lb) 06/07/2024 2:21 PM EST Height - - Body Mass Index 21.11 02/21/2024 9:39 AM EDT documented in this encounter Functional Status * Are you deaf or do you have serious difficulty hearing? Answer Date of Assessment Author No 11/13/2020 9:10 PM EDT Rohini Tatum LPN * Are you blind or do you have serious difficulty seeing, even when wearing glasses? Answer Date of Assessment Author No 11/13/2020 9:10 PM EDT Rohini Tatum LPN * Do you have difficulty dressing [...] Rohini Tatum LPN documented in this encounter Nursing Notes * Aida Francis LPN - 06/07/2024 2:19 PM EST 6 month recheck documented in this encounter Plan of Treatment Upcoming Encounters Date Type Department Care Team (Late st Contact Info) Description 06/10/2024 9:40 AM EST Anticoagulation Pharmacy, [address] [place] [address] [place] [address] 08/05/2024 8:40 AM EST Office Visit Dermatology [address] [place] [address] Maribel Cazares PA-C [address] [place] [address] [place] [address] 08/21/2024 11:15 AM EST Office Visit Urology, [facility] [address] [facility] [place] [address] Bear Craven MD [address] [place] [address] 10/07/2024 10:00 AM EDT Laboratory Laboratory [facility] [address] [place] [phone] [facility] [address] [place] [address] 10/14/2024 12:30 PM EDT Office Visit Hematology/Oncology [facility] [address] [place] [phone] Genna Can MD [address] [place] [place] [phone] 06/09/2025 8:20 AM EST Office Visit Family Medicine [address] [place] [phone] Xiomara Sapp MD [address] [place] [address] [place] [phone] Health Maintenance Due Date Last Done Comments [...] as of this encounter Visit Diagnoses Diagnosis Loss of weight- Primary Paroxysmal SVT (supraventricular tachycardia) (HCC) Paroxysmal supraventricular tachycardia Essential (primary) hypertension Unspecified essential hypertension Hereditary hemochromatosis (HCC) Hereditary hemochromatosis documented in this encounter Advance Directives * Full Code (Latest Code Status on File) Date Activated Date Inactivated Comments 11/13/2020 4:45 PM 11/14/2020 5:13 PM Question Answer Comments Discussion of Advance Directives occurred with: Not Discussed Care Teams Photogrammetric Tech Relationship Specialty Start Date End Date Xiomara Sapp MD [address] [place] [address] [place] [phone] PCP - General Family Medicine 11/16/22 documented as of this encounter
--- OUTSIDE RECORDS SUMMARY | 2024-06-24 23:45 | External Medical Summary | Summary of Care ---
Author Name Unknown Organization [facility] Address [address] [place] [address] Phone [phone] Care Team Providers Care Plastic Duplicator Name Role Phone Xiomara Sapp MD Primary Care Prov ider Reason for Visit * Reason Comments Follow Up 6 month follow up. O ne evening after using auto specialty services manager HR was up and took medication and helped. Edema in feet but no worse then prior. Denies chest pain, dizziness and SOB. Encounter Details Date Type Department Care Team (Latest Contact Info) Description 06/06/2024 10:00 AM EST Office Visit Cardiology, [facility] [address] [place] [address] Iain Ward PA-C [address] [facility] [place] [address] Heart palpitations*; Paroxysmal SVT (supraventricular tachycardia) (HCC); Aortic root dilation (HCC); Ascending aorta dilatation (HCC); Incomplete right bundle branch block; Weight loss; History of DVT (deep vein thrombosis); History of TIA (transient ischemic attack); Warfarin anticoagulation Allergies Active Allergy Reactions Criticality Noted Date Comments Sulfa Antibiotics 10/16/2003 Unknown reaction Vancomycin Low 06/17/2022 Other reaction(s): red, itchy Other reaction(s): red, itchy documented as of this encounter (statuses as of 06/06/2024) Medications VITAMIN D3 5000 UNITS PO CAPS [...] thrombosis),Hist ory of pulmonary embolism,Anticoa gulation management encounter,terminal gauger current use of anticoagulant therapy take 7.5mg (1.5 tablets) on Tuesdays, and saturdays; take 5mg (1 tablet) all other days or as directed by anticoagulation clinic. 100 Tablet 3 Active Metoprolol Succinate ER 25 MG Oral Tablet Extended Release 24 Hour (Toprol XL) Take 1.5 Tablets by mouth in the morning. 45 Tablet 5 024 Active Digoxin 125 MCG Oral Tablet (Lanoxin)Indicat ions:Paroxysmal SVT (supraventricula r tachycardia) (HCC) TAKE ONE TABLET BY MOUTH EVERY DAY 90 Tablet 3 024 2023 Discontinued Cefdinir 300 MG Oral Capsule (Omnicef) Take 1 Capsule by mouth in the morning and 1 Capsule before bedtime. 20 Capsule 024 2023 Discontinued( End of Procedure) Ciprofloxacin HCl 500 MG Oral Tablet (Cipro) Take 1 Tablet by mouth in the morning and 1 Tablet before bedtime. 20 Tablet 024 2023 Discontinued( End of Procedure) Metoprolol Tartrate 25 MG Oral Tablet (Lopressor)Indic ations:Paroxysma l SVT (supraventricula r tachycardia) (HCC) TAKE 1/2 TABLET BY MOUTH EVERY 12 HOURS 90 Tablet 3 024 2023 Discontinued documented as of this encounter (statuses as of 06/06/2024) Active Problems Problem Noted Date Diagnosed Date [...] as of this encounter (statuses as of 06/06/2024) Resolved Problems Problem Noted Date Diagnosed Date Resolved Date Encounter for examination fo r normal comparison and control in clinical research program 04/12/2018 04/18/2018 Overview (10/12/2020): Diagnosis changed due to Research Module. Go to Snapshot for study details. Primary osteoarthritis of right hip 04/17/2017 03/02/2018 Right lumbar radiculitis 12/20/2016 Neck mass 07/31/2015 08/07/2017 Actinic keratosis 01/21/2015 03/02/2017 Chest pain, non-cardiac 06/04/2012/0 12/2017 Dyslipidemia, goal to be determined 01/05/2009 02/14/2012 Chest pain 03/20/2007 06/04/2012 ADVANCE DIRECTIVE INFORMATION 03/01/2006 04/29/2024 Overview (03/01/2006): No, Advance Directive brochure given to patient. Acute cholecystitis 10/16/2003 10/18/19 14 Back disorder 01/27/2015 documented as of this encounter (statuses as of 06/06/2024) Immunizations Name Administration Dates Next Due COVID-19 [...] Sign Reading Time Taken Comments Blood Pressure 126/64 06/06/2024 10:02 AM EST Pulse 56 06/06/2024 10:02 AM EST Temperature - - Respiratory Rate 16 06/06/2024 10:02 AM EST Oxygen Saturation - - Inhaled Oxygen Concentration - - Weight 72.8 kg (160 lb 8 oz) 06/06/2024 10:02 AM EST Height - - Body Mass Index 21.18 02/21/2024 9:39 AM EDT documented in this [...] Rohini Tatum LPN documented in this encounter Progress Notes * Iain Ward PA-C - 06/06/2024 10:00 AM EST History of Present Illness The patient, with a history of cardiac issues managed with metoprolol tartrate and digoxin, presents with concerns about weight loss and decreased energy levels. The patient reports a loss of 4 pounds since his last visit in November, and notes that his energy levels deplete quickly during physical activities. Despite these changes, the patient maintains a good appetite and denies any changes in bowel habits. The patient also reports a persistent itching sensation, particularly after taking his prescribed dose of Coumadin. The patient has been experimenting with reducing salt intake and has stopped takingwater pills for an extended period, which may have contributed to some fluid retention. The patient's cardiac medications have been stable for approximately 18 years, following an episodeof supraventricular tachycardia (SVT) during a hospital admission for gallbladder issues. The patient occasionally takes his digoxin dose earlier than usual if he feels his heart rate is elevated. The patient's family has a recent history of COVID-19, and the patient's son has been managing a breathing problem with regular exercise and injections. The patient denies any recent symptoms of COVID-19 himself. The patient is also under the care of a manager critical care unit for an iron issue, and has stopped having phlebotomies on the manager critical care unit's advice. The patient has noticed that his hands, which were previouslyalways warm, are now often cold. The patient wonders if this could be related to his heart rate or blood levels. Problem List: PSVT Asymptomatic PACs Left anterior fascicular block Aortic root and proximal ascending aortic dilatation Nonrheumatic valvular disease History of TIA Hypertension Dyslipidemia with statin intolerance. Family history of premature CAD Carotid artery ectasia Hereditary hemochromatosis BPH Osteoarthritis Multiple prior back surgeries with the most recent lumbar laminectomy complicated by bilateral DVTsand bilateral PE. 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) Incomplete right bundle branch block S/P lumbar laminectomy History of DVT (deep vein thrombosis) BPH with obstruction/lower urinary tract symptoms Warfarin anticoagulation S/P hip replacement, 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) AK (actinic keratosis) Gastroesophageal reflux disease without esophagitis S/P TURP (status post transurethral resection of prostate) Essential (primary) hypertension Detrusor areflexia Dysuria Urinary retention Past Medical History: Diagnosis Date Acute cholecystitis 10/18/2003 Aortic root dilation (HCC) 08/2014 Back disorder Cystitis 01/22/2021 >100,000 coag neg staph sensitive to nitrofurantoin Dyslipidemia, goal LDL below 130 Pancreatitis 2004 gallstones Paroxysmal SVT (supraventricular tachycardia) (HCC) 2004 Pulmonary embolus (HCC) 05/23/2012 Right lumbar radiculitis 12/20/2016 L3-4 on right S/P hip replacement, right 08/26/2017 [facility] Past Surgical History: Procedure Laterality Date COLONOSCOPY 2010; 08/2011 [facility]--repeated 2011--polyps (tubulovillous) COLONOSCOPY, DIAGNOSTIC (RECTUM) 08/25/2016 adenomatous & hyperplastic polyps, diverticulosis, repeat 5 yrs/[facility] COLONOSCOPY, DIAGNOSTIC (RECTUM) 01/27/2022 diverticulosis / [facility] CT CHEST W CONTRAST 05/23/2012 PE in left lingular pulmonary artery CT HEAD/BRAIN 05/23/2012 no acute findings ECHO (2-D COMPLETE) 05/24/2012 normal EGD, FLEXIBLE, DIAGNOSTIC 10/02/2018 reflux esophagitis/[facility] KNEE ARTHROSCOPY/ARTHROPLASTY 1960 left knee LAPAROSCOPY; CHOLECYSTECTOMY 10/03/[address] [facility] [address] Wasserman LUMBAR / SACRAL EPIDURAL, SINGLE LEVEL Right 12/20/2016 Dr Mata, L3-4 on right. MRI L SPINE WO CONTRAST 12/18/2016 multilevel degenerative and postoperative changes OTHER (INFORMATION) 1973/1985/1988/1992/1997 back surgeries x 5 REMOVAL OF NOSE POLYP(S), SIMPLE REMOVAL OF PROSTATE (TURP) N/A 11/13/2020 TRANSURETHRAL RESECTION PROSTATE ELECTROSURGICAL performed by Alessio Santamaria MD at [facility] REMOVE LUMBAR SPINE LAMINA, 3+ SEGS 01/26/2017 L2-4 lumbar laminectomy; Dr. Blake TOTAL HIP REPLACEMENT & PROSTHESIS Right 08/26/2017 Dr. Paez [facility] DUPLEX CAROTID BILAT 05/23/2012 no stenosis Family History: Father with an NC at 48. Brother with CAD. Social History: Nonsmoker. No significant alcohol consumption. , two children. with Rheumatic valvular heart disease and ischemic heart disease Complete Review of Systems is as stated above, negative, or noncontributory. Review of patient's allergies indicates: Allergen Reactions Sulfa Antibiotics Unknown reaction Vancomycin Other reaction(s): red, itchy Other reaction(s): red, itchy Current Outpatient Medications Medication Sig Dispense Refill VITAMIN D3 5000 UNITS PO CAPS 1 CAPSULE DAILY Magnesium Oxide 400 MG Tablet TAKE ONE TABLET BY MOUTH EVERY DAY 90 Tab 1 acetaminophen (TYLENOL) 325 MG Tablet Take 1 Tablet by mouth every 6 hours as needed for Pain. Econazole Nitrate 1 % External Cream (Spectazole) APPLY TO AFFECTED AREA TWICE DAILY 85 g 0 Folic Acid 1 MG Oral Tablet Take 1 Tablet by mouth in the morning. B-12 5000 MCG Oral Capsule Take by mouth 1 Capsule daily . Furosemide 40 MG Oral Tablet (Lasix) Take 1 Tablet by mouth daily as needed (swelling). for fluid accumulation or weight gain 30 Tablet 3 Ezetimibe 10 MG Oral Tablet (Zetia) Take 1 Tablet by mouth in the morning. 90 Tablet 3 Potassium Chloride Kath ER 10 MEQ Oral Tablet Extended Release Take one tablet in the morning when you take the furosemide water pill only 30 Tablet 11 Meloxicam 15 MG Oral Tablet Take 1/2 to 1 tablet daily as needed for pain. 30 Tablet 5 quiNINE Sulfate 324 MG Oral Capsule (Qualaquin) Take 1 Capsule by mouth every night at bedtime. as needed for cramping. 20 Capsule 11 Omeprazole 20 MG Oral Capsule Delayed Release (PriLOSEC) Take 1 Capsule by mouth in the morning. 1 hour before the first meal of the day. 90 Capsule 3 Azelastine HCl 0.1 % Nasal Solution (Astelin) administer into each nostril 2 sprays 2 times a day as needed for rhinitis. 30 mL 1 Digoxin 125 MCG Oral Tablet (Lanoxin) TAKE ONE TABLET BY MOUTH EVERY DAY 90 Tablet 3 Fluticasone Propionate 50 MCG/ACT Nasal Suspension (Flonase) use 2 sprays in each nostril daily 48 g 1 Tamsulosin HCl 0.4 MG Oral Capsule (Flomax) Take 1 Capsule by mouth in the morning. 30 Capsule 6 Cefdinir 300 MG Oral Capsule (Omnicef) Take 1 Capsule by mouth in the morning and 1 Capsule before bedtime. (Patient not taking: Reported on 03/27/2024) 20 Capsule 0 Finasteride 5 MG Oral Tablet (Proscar) Take 1 Tablet by mouth in the morning. 90 Tablet 3 Ciprofloxacin HCl 500 MG Oral Tablet (Cipro) Take 1 Tablet by mouth in the morning and 1 Tablet before bedtime. 20 Tablet 0 Metoprolol Tartrate 25 MG Oral Tablet (Lopressor) TAKE 1/2 TABLET BY MOUTH EVERY 12 HOURS 90 Tablet3 Warfarin Sodium 5 MG Oral Tablet (Jantoven) take 7.5mg (1.5 tablets) on Tuesdays, and saturdays; take 5mg (1 tablet) all other days or as directed by anticoagulation clinic. 100 Tablet 3 No current facility-administered medications for this visit. OBJECTIVE/PHYSICAL EXAMINATION: BP 126/64 | Pulse 56 | Resp 16 | Wt 72.8 kg (160 lb 8 oz) | BMI 21.18 kg/m | BSA 1.94 m General: A&Ox3. NAD. HENT: Normocephalic. Atraumatic. Eyes: PER. Conjunctiva pink, sclera clear. Neck: No carotid bruits. No JVD. Heart: Irregular with an occasional ectopic beat, 60 bpm. No murmur. PMI is nondisplaced. Lungs: Clear to auscultation. Abdomen: +BS. Nontender. No organomegaly. Extremities: 1+ distal edema. No clubbing. No cyanosis. Limited neurological examination is without focal deficits. Pulses: radial=2/4, posterior tibial=1/4. Data Reviewed: December 2018 Zio: Patient had a min HR of 41 bpm, max HR of 197 bpm, and avg HR of 64 bpm. Predominantunderlying rhythm was Sinus Rhythm. 1 run of ventricular Tachycardia occurred lasting 4 beats with a max rate of 197 bpm (avg 191 bpm). 202 Supraventricular Tachycardia runs occurred, the run with the fastest interval lasting 5 beats with a max rate of 164 bpm, the longest lasting 16.2 secs with anavg rate of 103 bpm. Isolated SVEs were occasional (3.0%, [address]43[address]), SVE Couplets were rare (<1.0%,771), and SVE Triplets were rare (<1.0%, 40). Isolated VEs were rare (<1.0%), VE Couplets were rare (<1.0%), and no VE Triplets were present. Ventricular Bigeminy was present. Final Interpretation : Agree with findings listed above. Salvos of supraventricular tachycardia represent atrial tachycardia. No symptoms reported. November 09, 2020 DSE Interpretation Summary (as per Dr. Feliciano): The Dobutamine stress echo is negative for inducible ischemia. There was adequate and appropriate heart rate and blood pressure response todobutamine stress. Frequent PACs were noted during stress. Nonsustained supraventricular tachycardia was noted during stress. Occasional PVCs were noted with stress. Ventricular couplets were noted with stress. The left ventricular cavity size is normal. The LV wall thickness is borderline increased (concentric). The left ventricular wall motion is normal. The qualitative LV ejection fraction is 55-59% (normal). The left ventricular diastolic function is mildly abnormal (grade I). Mild aortic valve sclerosis is present. Aortic stenosis is absent. Mild aortic valve regurgitation is present. There is mild mitral annular calcification. The aortic root is moderately enlarged, unchanged from study dated 02/04/2020. The proximal ascending thoracic aorta is mildly enlarged,unchanged from study dated 02/04/2020. February 23, 2024 TTE Interpretation Summary (as per Dr. Landon): The left ventricular cavity size is normal. The LV wall thickness is mildly increased (concentric). The left ventricular wall motion is normal. The qualitative LV ejection fraction is 55-59% (normal). The left ventricular diastolic function is mildly abnormal (grade I). The aortic valve is moderately calcified. Aortic stenosis is absent. Mild aortic valve regurgitation is present. The aortic root is moderately enlarged. (4.2 cm) andnot significantly changed from prior study The ascending aorta is not well visualized on this study. June 06, 2024 EKG: Sinus rhythm at 60 bpm with premature atrial complexes in a pattern of bigeminy. Left anterior fascicular block. QTc 414 ms. Assessment & Plan Cardiac Arrhythmia Supraventricular tachycardia (SVT) managed with digoxin and metoprolol tartrate. EKG today reveals sinus rhythm with frequent premature atrial complexes in a pattern of bigeminy, left anterior fascicular block. Options of management discussed specifically switching to metoprolol succinate for better heart rate control and reduced gastrointestinal side effects. - Stop metoprolol tartrate 12.5 mg twice daily - Stop digoxin 125 mcg/day - Start metoprolol succinate 37.5 mg once daily in the morning - Monitor heart rate and rhythm - Follow up in one month with repeat EKG Weight Loss Progressive 4-pound weight loss since last visit. No changes in appetite or bowel habits. Potentialcontributing factors include medication side effects, cardiac issues, other. Discussed concern for possible adverse reaction to digoxin, risks and benefits of switching to metoprolol succinate. - Transition to metoprolol succinate 37.5 mg once daily - Monitor weight and symptoms - Follow up in one month with repeat EKG Peripheral Edema Intermittent hand and foot swelling, possibly related to salt intake and lack of diuretic use. Discussed reducing salt intake and potential diuretic use. - Decrease salt intake - Consider resuming diuretic use as needed - Monitor for changes in swelling Anticoagulation Management Currently on warfarin with well-managed INR. Discussed potential switch to Eliquis, which does not require dietary modifications or regular INR testing, but may have cost considerations. - Discuss Eliquis as an alternative to warfarin with primary care provider Follow-up - Schedule follow-up appointment in one month - Repeat EKG at follow-up. Iain Ward PA-C Department of Cardiology I spent a total of 30-39 minutes (exact time 37 mins) on the date of service in preparation, delivery, and documentation of the care provided to Raghavendra Gramajo excluding any time spent in the performance of separately billed services. This visit involved medical care services related to at least one serious condition or complex condition requiring ongoing care. This chart was completed in part utilizing [employer] Speech Voice Recognition Software. Grammatical errors, random word insertions, prounoun errors, and incomplete sentences are an occasional consequence of this system due to software limitations, ambient noise, and hardware issues. Any formal questions or concerns about the content, text, or information contained within the body of this dictation should be directly addressed to the provider for clarification. Text in this note was generated using an ambient documentation service. I discussed the use of a device to record and summarize our discussion today. All persons present during the encounter consented to its use. documented in this encounter Nursing Notes * Aguilar Monroy LPN - 06/06/2024 10:01 AM EST Patient identified by full name and date of Chief Complaint Patient presents with Follow Up 6 month follow up. One evening after using auto specialty services manager HR was up and took medication and helped. Edema in feet but no worse then prior. Denies chest pain, dizziness and SOB. Examination Room: 2 Name: Raghavendra Gramajo Date of : (1940). Reason for Visit: Follow up Interim Hospitalization(s): [facility] ED 02/16/24 Problems/Concerns: See chief complaint Chest Pain/SOB: Denies [facility] Discussed: Yes [facility] is a way you can talk to your provider online through e-mail. Would you like to sign up? I can activate it for you? ALREADY ACTIVE Patient was instructed to not get up on the exam table until directed and assisted by their provider; patient is to remain seated in the chair/ wheelchair/ exam table for fall prevention and safety reasons. Patient is aware to have assistance to step down off exam table with personnel. Patient voiced full comprehension of instructions. documented in this encounter Plan of Treatment Upcoming Encounters Date Type Department Care Team (Late st Contact Info) Description 06/07/2024 2:40 PM EST Office Visit Family Medicine [address] [place] [phone] Sheri Carpio [address] [place] [address] 06/10/2024 9:40 AM EST Anticoagulation Pharmacy, [address] [place] [address] [place] [id number] 08/05/2024 8:40 AM EST Office Visit Dermatology [address] [place] [id number] Maribel Cazares PA-C [address] [place] [address] [place] [id number] 08/21/2024 11:15 AM EST Office Visit Urology, [facility] [address] [place] [address] Bear Craven MD [address] [place] [id number] 10/07/2024 10:00 AM EDT Laboratory [facility] [place] [place] [address] [facility] [place] [phone] Tanner Espinosa [facility] [address] [facility] [place] [address] 10/14/2024 12:30 PM EDT Office Visit Hematology/Oncology [facility] Francisca [place] [address] [facility] [place] [phone] Genna Can MD [address] [place] [address] [place] [phone] Scheduled Orders Name Type Priority Associated Diagnoses Orde r Schedule EKG EKG Routine Paroxysmal SVT (supraventricular tachycardia) (HCC) Ordered: 06/06/2024 Health Maintenance Due Date Last Done Comments [...] as of this encounter Visit Diagnoses Diagnosis Heart palpitations- Primary Palpitations Paroxysmal SVT (supraventricular tachycardia) (HCC) Paroxysmal supraventricular tachycardia Aortic root dilation (HCC) Thoracic aortic ectasia Ascending aorta dilatation (HCC) Thoracic aortic ectasia Incomplete right bundle branch block Right bundle branch block Weight loss Loss of weight History of DVT (deep vein thrombosis) Personal history of venous thrombosis and embolism History of TIA (transient ischemic attack) Transient ischemic attack (TIA), and cerebral infarction without residual deficits Warfarin anticoagulation Long-term (current) use of anticoagulants documented in this encounter Advance Directives * Full Code (Latest Code Status on File) Date Activated Date Inactivated Comments 11/13/2020 4:45 PM 11/14/2020 5:13 PM Question Answer Comments Discussion of Advance Directives occurred with: Not Discussed Care Teams Plastic Duplicator Relationship Specialty Start Date End Date Xiomara Sapp MD [address] [place] [address] [place] [id number] PCP - General Family Medicine 11/16/22 documented as of this encounter"
--- OUTSIDE RECORDS SUMMARY | 2024-06-24 23:45 | External Medical Summary | Summary of Care ---
Author Name Unknown Organization [facility] Address [address] [place] [address] Phone [phone] Care Team Providers Care Academic Manager Name Role Phone Xiomara Sapp MD Primary Care Prov ider Reason for Visit * Reason Onset Date Comments Appointment 05/01/2024 Encounter Details Date Type Department Care Team (Late st Contact Info) Description 05/01/2024 Telephone [facility] [address] [place] [address] Hernan Beckham, COLBY [address] [place] [address] Appointment (//) Allergies Active Allergy Reactions Criticality Noted Date Comments Sulfa Antibiotics 10/16/2003 Unknown reaction Vancomycin Low 06/17/2022 Other reaction(s): red, itchy Other reaction(s): red, itchy documented as of this encounter (statuses as of 05/01/2024) Medications Medication Sig Dispensed Refills Start Date [...] vein thrombosis),History of pulmonary embolism,Anticoagul ation management encounter,alf current use of anticoagulant therapy take 7.5mg (1.5 tablets) on Tuesdays, and saturdays; take 5mg (1 tablet) all other days or as directed by anticoagulation clinic. 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 Increased risk for hereditary hemochromatosis. S/P hip [...] as of this encounter (statuses as of 05/01/2024) Resolved Problems Problem Noted Date Diagnosed Date [...] 03/20/2007 06/04/2012 ADVANCE DIRECTIVE INFORMATION 03/01/2006 04/29/2024 Overview: No, Advance Directive brochure given to patient. Acute cholecystitis 10/16/2003 10/18/19 14 Back disorder 01/27/2015 documented as of this encounter (statuses as of 05/01/2024) Immunizations Name Administration Dates Next Due COVID-19 mRNA, LNP-s, No Pre serve, 2-Dose Series ([employer]) 10/22/2020,10/01/2020 COVID-19, LNP-s, No Preserve , Cordell-sucrose, [...] No 11/13/2020 documented as of this encounter Miscellaneous Notes * Telephone Encounter - Hernan Beckham OSA - 05/01/2024 8:43 AM EST Pt declined [facility] Episode closed documented in this encounter Plan of Treatment Upcoming Encounters Date Type Department Care Team (Ramon Contact Info) Description 05/20/2024 10:00 AM EST Anticoagulation Pharmacy, [address] [place] [address] [place] [address] 06/03/2024 11:00 AM EST Office Visit Family Medicine [address] [place] [phone] Sheri Carpio [address] [place] [address] 06/06/2024 10:00 AM EST Office Visit Cardiology, [facility] [address] [place] [address] Iain Ward PA-C 132 [facility] [place] [address] 07/03/2024 8:40 AM EST Office Visit Dermatology [address] [place] [address] Maribel Cazares PA-C [address] [place] [address] [place] [address] 08/21/2024 11:15 AM EST Office Visit Urology, [facility] 132 [facility] [place] [address] Bear Craven MD [address] [place] [address] 10/07/2024 10:00 AM EDT Laboratory Laboratory [facility] [place] [address] [place] [phone] [place], Lab Scenery [address] [place] [address] 10/14/2024 12:30 PM EDT Office Visit Hematology/Oncology [facility] [place] [place] 200 [facility] [place] [phone] Genna Can MD [address] [place] [address] [place] [phone] Health Maintenance Due Date [...] Directives occurred with: Not Discussed Care Teams Academic Manager Relationship Specialty Start Date End Date Xiomara Sapp MD [address] [place] [address] [place] [phone] PCP - General Family Medicine 11/16/22 documented as of this encounter
--- OUTSIDE RECORDS SUMMARY | 2024-06-24 23:45 | External Medical Summary ---
Author Name Unknown Address Unknown Organization K01:[facility] [place] [address] [facility] [address] Laboratory Report Ordering Provider Test Date Status OLU THOMPSON 06/14/2024 12:00:41 Final Observation Date Value Abnormality Reference (Units) Status Bacteria identified in Specimen by Culture 06/14/2024 12:00:41 No significant growth Final Test: Culture, Urine, Quanti tative
Specimen Source: Urine, Clean Catch
Specimen Type: Urine
Specimen Date: 06/14/2024 1200
Result Date: 06/15/2024 1746
Result Status: Final result
Resulting Lab: [facility]
[address]
[facility] [address]

CULTURE

No significant growth

null Performing Location [facility] [place] [place] [address] [facility] [address]
--- OUTSIDE RECORDS SUMMARY | 2024-06-24 23:45 | External Medical Summary | Summary of Care ---
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 Increased risk for hereditary hemochromatosis. S/P hip [...] No 11/29/2023 Does the household have a [facility] source of income? (Household - for [...] of Assessment Author No 11/13/2020 9:10 PM Roihni Nolan LPN * Because of a physical, [...] before the weekend Caller was transferred to [facility] at the clinic. documented in this encounter Plan of Treatment Upcoming Encounters Date Type Department Care Team (Late st Contact Info) Description 06/18/2024 9:30 AM EST Anticoagulation Pharmacy, [address] [place] [address] [place] [address] 08/05/2024 8:40 AM EST Office Visit Dermatology [address] [place] [address] Maribel Cazares PA-C [address] [place] [address] [place] [address] 08/21/2024 11:15 AM EST Office Visit Urology, [facility] 132 [facility] [place] [address] Bear Raines MD 27 [place] [address] 10/07/2024 10:00 AM EDT Laboratory Laboratory [facility] [place] [address] [place] [phone] [place], Lab Scenery [address] [place] [address] 10/14/2024 12:30 PM EDT Office Visit Hematology/Oncology [facility] 200 [facility] [place] [phone] Genna Can MD [address] [place] [address] [place] [phone] 11/26/2024 1:00 PM EDT [address] [phone] Sheri Carpio CRNP [address] [place] [address] [place] [address] 06/09/2025 8:20 AM EST Office [address] [phone] Xiomara Sapp MD [address] [place] [address] [place] [address] Health Maintenance Due Date Last Done Comments [...] Directives occurred with: Not Discussed Care Teams Allied Health Instructor Relationship Specialty Start Date End Date Xiomara Sapp MD [address] [place] [address] [place] [address] PCP - General Family Medicine 11/16/22 documented as of this encounter
--- OUTSIDE RECORDS SUMMARY | 2024-06-24 23:45 | External Medical Summary ---
Author Name Unknown Address Unknown Organization : Laboratory Report Ordering Provider Test Date Status ENZO COTO 04/25/2024 11:56:46 Final Therapeutic ranges for non-o perative patients:
Prophylaxsis/treatment of DVT: (Range:2.0-3.0)
Treatment of pulmonary embolism:(Range:2.0-3.0)
Prevention of systemic embolism from:
-tissue heart valves
-acute myocardial infarction
-valvular heart disease
-atrial fibrillation
(Range: 2.0-3.0)
Mechanical prosthetic valves: (Range: 2.5-3.5) Observation Date Value Abnormality Reference (Units ) Status INR in Capillary blood by Coagulation assay 04/25/2024 11:56:46 2.5 (INR) Final Performing Location
--- OUTSIDE RECORDS SUMMARY | 2024-06-24 23:45 | External Medical Summary | Summary of Care ---
Author Name Unknown Organization [facility] Address [address] [place] [facility] [place] [address] Phone [phone] Care Team Providers Care Unclaimed Property Manager Name Role Phone Xiomara Sapp MD Primary Care Prov ider Reason for Visit * Reason Comments Dosage Adjustment In Person (Anticoag Cl inic) Encounter Details Date Type Department Care Team (Latest Contact Info) Description 06/10/2024 9:40 AM [facility] Anticoagulation Pharmacy, [address] [place] [address] [place] [address] Anticoagulation management encounter*; History of DVT (deep vein thrombosis); History of pulmonary embolism Allergies Active Allergy Reactions Criticality Noted Date Comments Sulfa Antibiotics 10/16/2003 Unknown reaction Vancomycin Low 06/17/2022 Other reaction(s): red, itchy Other reaction(s): red, itchy documented as of this encounter (statuses as of 06/10/2024) Medications VITAMIN D3 5000 UNITS PO CAPS [...] Active Warfarin Sodium 5 MG Oral Tablet (Juntoven)Indicat ions:History of DVT (deep vein thrombosis),Histo ry of pulmonary embolism,Anticoag ulation management encounter,terminal gauger current use of anticoagulant [...] as of this encounter (statuses as of 06/10/2024) Active Problems Problem Noted Date Diagnosed Date [...] 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 Increased risk for hereditary hemochromatosis. S/P hip [...] as of this encounter (statuses as of 06/10/2024) Resolved Problems Problem Noted Date Diagnosed Date [...] as of this encounter (statuses as of 06/10/2024) Immunizations Name Administration Dates Next Due COVID-19 [...] in this encounter Progress Notes * Halima Rodriguez, [facility] [place] - 06/10/2024 9:27 AM EST Medication Therapy Disease Management - Anticoagulation Patient: Raghavendra Gramajo | : 1940 Subjective Patient-Reported Symptoms: Patient Findings Negatives: Signs/symptoms of thrombosis, Signs/symptoms of bleeding, Change in health, Change in alcohol use, Change in activity, Upcoming invasive procedure, Missed doses, Extra doses, Change in medications, Change in diet/appetite, Bruising Objective Current Warfarin Dose As of 06/10/2024 Warfarin maintenance plan: 7.5 mg (5 mg x 1.5) every Mon, Wed, Fri; 5 mg (5 mg x 1) all other days INR Result As of 06/10/2024 INR goal: 2.0-3.0 INR used for dosin.8 (06/10/2024) Assessment & Plan Warfarin Plan As of 06/10/2024 Full warfarin instructions: 7.5 mg every Mon, Wed, Fri; 5 mg all other days No change documented: Halima Rodriguez RPh Next INR check: 06/18/2024 Repeat PT/INR in 1 week(s) Weekly dose: not changed Additional Dosing Information: I spent a total of 10-19 minutes (exact time 15 mins) on the date of service in preparation, delivery, and documentation of the care provided to Raghavendra Gramajo excluding any time spent in the performance of separately billed services or time spent by another provider/QHP. Halima Rodriguez [facility] [place] Clinical Pharmacist 06/10/2024, 9:27 AM documented in this encounter Plan of Treatment Upcoming Encounters Date Type Department Care Team (Late st Contact Info) Description 06/18/2024 9:30 AM EST Anticoagulation Pharmacy, [address] [place] [address] [place] [address] 08/05/2024 8:40 AM EST Office Visit Dermatology [address] [place] [address] Maribel Cazares PA-C [address] [place] [address] [place] [address] 08/21/2024 11:15 AM EST Office Visit Urology, [facility] [address] [place] [address] Bear Craven MD [address] [place] [address] 10/07/2024 10:00 AM EDT Laboratory Laboratory [facility] [address] [place] [phone] [place] [address] [place] [address] 10/14/2024 12:30 PM EDT Office Visit Hematology/Oncology [facility] [address] [place] [phone] Genna Can MD 400 [facility] [place] [phone] 11/26/2024 1:00 PM EDT Office Visit Family [address] [phone] Sheri Carpio CRNP [address] [place] [address] [place] [address] 06/09/2025 8:20 AM EST Office Visit Family Medicine [address] [phone] Xiomara Sapp MD [address] [place] [address] [place] [address] Health Maintenance Due Date Last Done Comments [...] Comments INR FINGERSTICK, POINT OF CARE STAT 06/10/2024 9:41 AM EST Anticoagulation management encounter documented in this encounter Results * INR FINGERSTICK, POINT OF CARE (06/10/2024 9:41 AM EST) Fingerstick INR 2.8 INR 9:43 AM EST [facility]AT[facility] [place] 55-00 Blood 06/10/2024 9:41 AM EST 06/10/2024 9:43 AM EST Narrative [facility] [place] [facility] - 06/10/2024 9:43 AM EST Therapeutic ranges for non-operative patients: Prophylaxsis/treatment of DVT: (Range:2.0-3.0) Treatment of pulmonary embolism:(Range:2.0-3.0) Prevention of systemic embolism from: -tissue heart valves -acute myocardial infarction -valvular heart disease -atrial fibrillation (Range: 2.0-3.0) Mechanical prosthetic valves: (Range: 2.5-3.5) Halima Rodriguez [facility] [place] LAB POINT OF CARE TEST DOCKED DEVICE UNSOLICITED RESULTS Final Result [facility] [place] [address] [place] [address] [place] [address] documented in this encounter Visit Diagnoses Diagnosis [...] Directives occurred with: Not Discussed Care Teams Unclaimed Property Manager Relationship Specialty Start Date End Date Xiomara Sapp MD [address] [place] [address] [place] [address] PCP - General Family Medicine 11/16/22 documented as of this encounter"
--- OUTSIDE RECORDS SUMMARY | 2024-06-24 23:45 | External Medical Summary | Summary of Care ---
Author Name Unknown Organization [facility] Address [address] [place] [address] Phone [phone] Care Team Providers Care Fleet Manager Name Role Phone Xiomara Sapp MD Primary Care Prov ider Reason for Visit * Reason Comments Office Procedure Fibroscan Encounter Details Date Type Department Care Team (Late st Contact Info) Description 04/01/2024 10:30 AM EDT Nurse Only Gastroenterology, [address] [place] [address] [place] [address] Herb, Nurse Gastro [address] [facility] [address] [facility] [address] [place] [address] Office Procedure (Fibroscan) Allergies Active Allergy Reactions Criticality Noted Date Comments Sulfa Antibiotics 10/16/2003 Unknown reaction Vancomycin Low 06/17/2022 Other reaction(s): red, itchy Other reaction(s): red, itchy documented as of this encounter (statuses as of 05/06/2024) Medications VITAMIN D3 5000 UNITS PO CAPS [...] for rhinitis. 30 mL 1 024 Active Digoxin 125 MCG Oral Tablet (Lanoxin)Indicat ions:Paroxysmal SVT (supraventricula r tachycardia) (HCC) TAKE ONE TABLET BY MOUTH EVERY DAY 90 Tablet 3 024 Active Fluticasone Propionate 50 MCG/ACT Nasal Suspension (Flonase)Indicat ions:Other chronic sinusitis,Polyp of nasal cavity use 2 sprays in each nostril daily 48 g 024 Active Tamsulosin HCl 0.4 MG Oral Capsule (Flomax) Take 1 Capsule by mouth in the morning. 30 Capsule 6 024 Active Cefdinir 300 MG Oral Capsule (Omnicef) Take 1 Capsule by mouth in the morning and 1 Capsule before bedtime. 20 Capsule Active Additional Information Patient not taking.Reported on 03/27/2024 Finasteride 5 MG Oral Tablet (Proscar) Take 1 Tablet by mouth in the morning. 90 Tablet 3 024 Active Warfarin Sodium 5 MG Oral Tablet (Jantoven)Indica tions:History of DVT (deep vein thrombosis),Hist ory of pulmonary embolism,Anticoa gulation management encounter,snf current use of anticoagulant therapy take 7.5mg (1.5 tablets) on Tuesdays, and saturdays; take 5mg (1 tablet) all other days or as directed by anticoagulation clinic. 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 Increased risk for hereditary hemochromatosis. S/P hip [...] as of this encounter (statuses as of 05/06/2024) Resolved Problems Problem Noted Date Diagnosed Date [...] as of this encounter (statuses as of 05/06/2024) Immunizations Name Administration Dates Next Due COVID-19 mRNA, LNP-s, No Pre serve, 2-Dose Series ([employer]) 10/22/2020,10/01/2020 COVID-19, LNP-s, No Preserve , Cordell-sucrose, [...] Sign Reading Time Taken Comments Blood Pressure 138/68 04/01/2024 10:31 AM EDT Pulse 54 04/01/2024 10:31 AM EDT Temperature 36.5 C (97.7 F) 04/01/2024 10:31 AM E DT Respiratory Rate 16 04/01/2024 10:31 AM EDT Oxygen Saturation - - Inhaled Oxygen Concentration - - Weight 74.5 kg (164 lb 3.2 oz) 04/01/2024 10:31 AM EDT Height - - Body Mass Index 21.66 02/21/2024 9:39 AM EDT documented in this [...] documented in this encounter Progress Notes * Ksenia Monahan RN - 04/01/2024 10:42 AM EDT [facility] Department of Gastroenterology & Hepatology Fibroscan/Vibration Controlled Transient Elastography (VCTE) Procedure Report Date: 04/01/2024 Patient: Raghavendra Gramajo Referring Provider: Xiomara Kearns MD; Dr Can Interpreting Provider: Dr Huggins Indication: Hemochromatosis NPO 3-Hours: Yes Probe: M Procedure: After providing oral explanation of the procedure to the patient, patient was placed in a supine position with right arm extended over the head to allow optimal exposure of the right lateral abdomen. Ultrasound location was identified by locating the terminus of the xiphoid process and finding intercostal spacing located midline and lateral to this point. 50 Hz Shear Wave pulses were applied and the resulting Shear Wave and Propagation Speed detected with 3.5 MHz ultrasonic signal, using the FibroScan probe. Skin to liver capsule distance and liver parenchyma were accessed during the entire examination using the FibroScan probe. Eleven Shear wave impulses were produced; individual measurements of each Shear Wave were calculated. Patient tolerated procedure well. Findings: Results for orders placed or performed in visit on 04/01/24 LIVER ELASTOGRAPHY W/O IMAGING Result Value Ref Range Median Shear Wave Speed 1.28 meters/second Median Liver Stiffness 4.9 kilopascal (kPa) IQR/med 9 Range < 30% Fibrosis Staging CAP SCORE 155 dB/m The Interquartile Range to Median ration (IQR/med) for all measurements was 9% , indicating a good quality study was performed. (Acceptable range of IQR/med less than 30%) Interpretation: Table 1. Non fibrotic liver (F0-F1) Signature: Anabel Avery DO References: Svetlana Finn, Samy Tracy (2014) Utilization of FibroScan in Clinical Practice. Curr Gastroenterol Rep. DOI 10.1007/f84642-663-9070-8 Table 1 Recommended values for different stage of fibrosis Disease F0-F1 (kPA) F2 (kPA) F3 (kPA) F4 (kPA) Hepatitis B < 6.0 > 6.0 > 9.0 >12.0 Hepatitis C < 7.0 > 7.0 > 9.5 > 12.0 HCV-HIV coinfection < 7.0 < 10.0 > 11.0 >14.0 Cholestatic liver disease < 7.0 > 7.5 > 10.0 > 17.0 NAFLD/TURNER < 7.0 > 7.5 < 10.0 > 14.0 Thank you for referring your patient for Fibroscan. Please do not hesitate to contact us for further information. documented in this encounter Nursing Notes * Ksenia Monahan RN - 04/01/2024 10:23 AM EDT Chief Complaint Patient presents with Office Procedure Fibroscan NPO x 3 hours. documented in this encounter Plan of Treatment Upcoming Encounters Date Type Department Care Team (Late st Contact Info) Description 05/20/2024 10:00 AM EST Anticoagulation Pharmacy, [address] [place] [address] [place] [address] 06/03/2024 11:00 AM EST Office Visit Family Medicine [address] [place] [phone] Sheri Carpio CRNP [address] [place] [address] [place] [address] 06/06/2024 10:00 AM EST Office Visit Cardiology, [facility] 132 [facility] [place] [address] Iain Ward PA-C 132 [facility] [place] [address] 07/03/2024 8:40 AM EST Office Visit Dermatology [address] [place] [address] Maribel Cazares PA-C [address] [place] [address] [place] [address] 08/21/2024 11:15 AM EST Office Visit Urology, [facility] 132 [facility] [place] [address] Bear Craven MD [address] [place] [address] [place] [address] 10/07/2024 10:00 AM EDT Laboratory Laboratory [facility] [address] [place] [phone] [place] [facility] [address] [place] [address] 10/14/2024 12:30 PM EDT Office Visit Hematology/Oncology [facility] [address] [place] [phone] [facility]na [facility] [place] [phone] Pending Results Name Type Priority Associated Diagnoses Date /Time LIVER ELASTOGRAPHY W/O IMAGING Procedures Routine Hereditary hemochromatosis (HCC) 04/01/2024 10:42 AM EDT Health Maintenance Due Date Last Done Comments [...] Procedure Name Priority Date/Time Associated Diagnosis Comments LIVER ELASTOGRAPHY W/O IMAGING Routine 04/01/2024 10:42 AM EDT Hereditary hemochromatosis (HCC) documented in this encounter Visit Diagnoses Diagnosis Hereditary hemochromatosis (HCC)- Primary Hereditary hemochromatosis documented in this encounter Advance Directives * Full Code (Latest Code Status on File) Date Activated Date Inactivated Comments 11/13/2020 4:45 PM 11/14/2020 5:13 PM Question Answer Comments Discussion of Advance Directives occurred with: Not Discussed Care Teams Fleet Manager Relationship Specialty Start Date End Date Xiomara Sapp MD [address] [place] [address] [place] [address] PCP - General Family Medicine 11/16/22 documented as of this encounter
--- OUTSIDE RECORDS SUMMARY | 2024-06-24 23:45 | External Medical Summary | Summary of Care ---
Author Name Unknown Organization [facility] Address [address] [facility] [place] [address] Phone [phone] Care Team Providers Care Paperhanger And Painter Name Role Phone Xiomara Sapp MD Primary Care Prov ider Reason for Visit * Reason Comments Dosage Adjustment In Person (Anticoag Cl inic) Encounter Details Date Type Department Care Team (Latest Contact Info) Description 05/20/2024 10:00 AM [facility] Anticoagulation Pharmacy, [address] [place] [address] [place] [address] Anticoagulation management encounter*; History of DVT (deep vein thrombosis); History of pulmonary embolism Allergies Active Allergy Reactions Criticality Noted Date Comments Sulfa Antibiotics 10/16/2003 Unknown reaction Vancomycin Low 06/17/2022 Other reaction(s): red, itchy Other reaction(s): red, itchy documented as of this encounter (statuses as of 05/20/2024) Medications VITAMIN D3 5000 UNITS PO CAPS [...] rhinitis. 30 mL 1 09/26/19 24 Active Digoxin 125 MCG Oral Tablet (Lanoxin)Indicati ons:Paroxysmal SVT (supraventricular tachycardia) (HCC) TAKE ONE TABLET BY MOUTH EVERY DAY 90 Tablet 3 10/03/19 24 Active Fluticasone Propionate 50 MCG/ACT Nasal Suspension (Flonase)Indicati ons:Other chronic sinusitis,Polyp of nasal cavity use 2 sprays in each nostril daily 48 g 1 01/17/20 24 Active Tamsulosin HCl 0.4 MG Oral Capsule (Flomax) Take 1 Capsule by mouth in the morning. 30 Capsule 6 03/01/20 24 Active Cefdinir 300 MG Oral Capsule (Omnicef) Take 1 Capsule by mouth in the morning and 1 Capsule before bedtime. 20 Capsule 03/13/20 24 Active Additional Information Patient not taking.Reported on 03/27/2024 Finasteride 5 MG Oral Tablet (Proscar) Take 1 Tablet by mouth in the morning. 90 Tablet 3 03/27/20 24 Active Ciprofloxacin HCl 500 MG Oral Tablet (Cipro) Take 1 Tablet by mouth in the morning and 1 Tablet before bedtime. 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 Increased risk for hereditary hemochromatosis. S/P hip [...] as of this encounter (statuses as of 05/20/2024) Resolved Problems Problem Noted Date Diagnosed Date [...] as of this encounter (statuses as of 05/20/2024) Immunizations Name Administration Dates Next Due COVID-19 [...] No 11/29/2023 Does the household have a [facility] source of income? (Household - for ages [...] Progress Notes * Halima Rodriguez RPh - 05/20/2024 10:01 AM EST Medication Therapy Disease Management - Anticoagulation Patient: Raghavendra Gramajo | : 1940 Subjective Patient-Reported Symptoms: Patient Findings Negatives: Signs/symptoms of thrombosis, Signs/symptoms of bleeding, Change in health, Change in alcohol use, Change in activity, Upcoming invasive procedure, Missed doses, Extra doses, Change in medications, Change in diet/appetite, Bruising Objective Current Warfarin Dose As of 05/20/2024 Warfarin maintenance plan: 7.5 mg (5 mg x 1.5) every Mon, Wed, Fri; 5 mg (5 mg x 1) all other days INR Result As of 05/20/2024 INR goal: 2.0-3.0 INR used for dosin.5 (05/20/2024) Assessment & Plan Warfarin Plan As of 05/20/2024 Full warfarin instructions: 7.5 mg every Mon, Wed, Fri; 5 mg all other days No change documented: Halima Rodriguez RPh Next INR check: 06/10/2024 Repeat PT/INR in 3 week(s) Weekly dose: not changed Additional Dosing Information: I spent a total of 10-19 minutes (exact time 10 mins) on the date of service in preparation, delivery, and documentation of the care provided to Raghavendra Gramajo excluding any time spent in the performance of separately billed services or time spent by another provider/QHP. Halima Rodriguez RPh Clinical Pharmacist 05/20/2024, 10:01 AM documented in this encounter Plan of Treatment Upcoming Encounters Date Type Department Care Team (Late st Contact Info) Description 06/03/2024 11:00 AM EST Office Visit Family Medicine [address] [place] [phone] Sheri Carpio [address] [place] [address] 06/06/2024 10:00 AM EST Office Visit Cardiology, [facility] [address] [place] [address] Iain Ward PA-C [address] [place] [address] 06/10/2024 9:40 AM EST Anticoagulation Pharmacy, [address] [place] [address] [place] [address] 07/03/2024 8:40 AM EST Office Visit Dermatology [address] [place] [address] Maribel Cazares PA-C [address] [place] [address] [place] [address] 08/21/2024 11:15 AM EST Office Visit Urology, [facility] [address] [facility] [place] [address] Bear Craven MD [address] [place] [address] 10/07/2024 10:00 AM EDT Laboratory Laboratory [facility] [place] [address] [place] [phone] [place], [facility] [address] [place] [address] 10/14/2024 12:30 PM EDT Office Visit Hematology/Oncology [facility] [address] [facility] [place] [address] Genna Can MD [address] [place] [address] [place] [phone] Health Maintenance Due Date [...] Comments INR FINGERSTICK, POINT OF CARE STAT 05/20/2024 10:07 AM EST Anticoagulation management encounter documented in this encounter Results * INR FINGERSTICK, POINT OF CARE (05/20/2024 10:07 AM EST) Fingerstick INR 2.5 INR 10:09 AM EST [facility] Blood 05/20/2024 10:0 7 AM EST 05/20/2024 10:08 AM EST Narrative [facility] - 05/20/2024 10:09 AM EST Therapeutic ranges for non-operative patients: Prophylaxsis/treatment of DVT: (Range:2.0-3.0) Treatment of pulmonary embolism:(Range:2.0-3.0) Prevention of systemic embolism from: -tissue heart valves -acute myocardial infarction -valvular heart disease -atrial fibrillation (Range: 2.0-3.0) Mechanical prosthetic valves: (Range: 2.5-3.5) Halima Rodriguez [facility] LAB POINT OF CARE TEST DOCKED DEVICE UNSOLICITED RESULTS Final Result [facility] [place] [phone] documented in this encounter Visit Diagnoses Diagnosis [...] Directives occurred with: Not Discussed Care Teams Paperhanger And Painter Relationship Specialty Start Date End Date Xiomara Sapp MD [address] [place] [address] [place] [address] PCP - General Family Medicine 11/16/22 documented as of this encounter"
--- OUTSIDE RECORDS SUMMARY | 2024-06-24 23:45 | External Medical Summary | Summary of Care ---
Author Name Unknown Organization [facility] Address [address] [place] [address] Phone [phone] Care Team Providers Care Narrow Gauge Operator Name Role Phone Xiomara Sapp MD Primary Care Prov ider Reason for Visit * Reason Comments Dosage Adjustment In Person (Anticoag Cl inic) Encounter Details Date Type Department Care Team (Latest Contact Info) Description 04/25/2024 11:50 AM EDT Anticoagulation Pharmacy, [address] [place] [address] [place] [address] Anticoagulation management encounter*; History of DVT (deep vein thrombosis); History of pulmonary embolism Allergies Active Allergy Reactions Criticality Noted Date Comments Sulfa Antibiotics 10/16/2003 Unknown reaction Vancomycin Low 06/17/2022 Other reaction(s): red, itchy Other reaction(s): red, itchy documented as of this encounter (statuses as of 04/25/2024) Medications Medication Sig Dispensed Refills Start Date [...] vein thrombosis),History of pulmonary embolism,Anticoagul 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 Increased risk for hereditary hemochromatosis. S/P hip [...] as of this encounter (statuses as of 04/25/2024) Resolved Problems Problem Noted Date Diagnosed Date Resolved Date Encounter for examination fo r normal comparison and control in clinical research program 04/12/2018 04/18/2018 Overview: Diagnosis changed due to Research Module. Go to Snapshot for study details. Primary osteoarthritis of right hip 04/17/2017 03/02/2018 Right lumbar radiculitis 12/20/2016 Neck mass 07/31/2015 08/07/2017 Actinic keratosis 01/21/2015 03/02/2017 Chest pain, non-cardiac 06/04/20120 12/2017 Dyslipidemia, goal to be determined 01/05/2009 02/14/2012 Chest pain 03/20/2007 06/04/2012 Acute cholecystitis 10/16/2003 10/18/19 14 Back disorder 01/27/2015 documented as of this encounter (statuses as of 04/25/2024) Immunizations Name Administration Dates Next Due COVID-19 mRNA, LNP-s, No Pre serve, 2-Dose Series ([employer] 10/22/2020,10/01/2020 COVID-19, LNP-s, No Preserve , Cordell-sucrose, [...] (15 years old or older) No 11/14/19 21 Cognitive Status Response Date of Assessm ent Because of a physical, menta l, or emotional condition, do you have serious difficulty concentrating, remembering, or making decisions? (5 years old or older) No 11/13/2020 documented as of this encounter Progress Notes * Halima Rodriguez, [facility] - 04/25/2024 11:51 AM EDT Medication Therapy Disease Management - Anticoagulation Patient: Raghavendra Gramajo | : 1940 Subjective Contacts Contact Date/Time Type Contact Phone/Fax 04/18/2024 05:10 AM EDT Vendor (Outgoing) Raghavendra Gramajo [phone] 04/22/2024 05:14 AM EDT Vendor (Outgoing) Raghavendra Gramajo [phone] 04/24/2024 05:10 AM EDT Vendor (Outgoing) Raghavendra Gramajo [phone] Patient-Reported Symptoms: Patient Findings Negatives: Signs/symptoms of thrombosis, Signs/symptoms of bleeding, Change in health, Change in alcohol use, Change in activity, Upcoming invasive procedure, Missed doses, Extra doses, Change in medications, Change in diet/appetite, Bruising Objective Current Warfarin Dose As of 04/25/2024 Warfarin maintenance plan: 7.5 mg (5 mg x 1.5) every Mon, Wed, Fri; 5 mg (5 mg x 1) all other days INR Result As of 04/25/2024 INR goal: 2.0-3.0 INR used for dosin.5 (04/25/2024) Assessment & Plan Warfarin Plan As of 04/25/2024 Full warfarin instructions: 7.5 mg every Mon, Wed, Fri; 5 mg all other days No change documented: Halima Rodriguez RPh Next INR check: 05/20/2024 Repeat PT/INR in 4 week(s) Weekly dose: not changed Additional Dosing Information: I spent a total of 10-19 minutes (exact time 10 mins) on the date of service in preparation, delivery, and documentation of the care provided to Raghavendra Gramajo excluding any time spent in the performance of separately billed services or time spent by another provider/QHP. Halima Rodriguez RPh Clinical Pharmacist 04/25/2024, 11:51 AM documented in this encounter Plan of Treatment Upcoming Encounters Date Type Department Care Team (Late st Contact Info) Description 05/20/2024 10:00 AM EST Anticoagulation Pharmacy, [address] [place] [address] [place] [address] 06/03/2024 11:00 AM EST Office Visit Family Medicine [address] [place] [phone] Sheri Carpio CRNP [address] [place] [address] [place] [address] 06/06/2024 10:00 AM EST [facility] [place] [address] Iain Ward PA-C 132 [facility] [place] [address] 07/03/2024 8:40 AM EST Office Visit Dermatology [address] [place] [address] Maribel Cazares PA-C [address] [place] [address] [place] [address] 08/21/2024 11:15 AM EST Office Visit Urology, [facility] 132 [facility] [place] [address] Bear Craven MD [address] [place] [address] [place] [address] 10/07/2024 10:00 AM EDT Laboratory Laboratory [facility] [place] [address] [place] [phone] [place] [facility] [address] [place] [address] 10/14/2024 12:30 PM EDT Office Visit Hematology/Oncology [facility] [place] [address] [place] [phone] Genna Can MD [address] [place] [address] [place] [phone] Health Maintenance Due Date Last Done Comments [...] Comments INR FINGERSTICK, POINT OF CARE STAT 04/25/2024 11:56 AM EDT Anticoagulation management encounter documented in this encounter Results * INR FINGERSTICK, POINT OF CARE (04/25/2024 11:56 AM EDT) Fingerstick INR 2.5 INR 12:07 PM EDT [facility] 55 Blood 04/25/2024 11:5 6 AM EDT 04/25/2024 12:06 PM EDT Narrative [facility] - 04/25/2024 12:07 PM EDT Therapeutic ranges for non-operative patients: Prophylaxsis/treatment of DVT: (Range:2.0-3.0) Treatment of pulmonary embolism:(Range:2.0-3.0) Prevention of systemic embolism from: -tissue heart valves -acute myocardial infarction -valvular heart disease -atrial fibrillation (Range: 2.0-3.0) Mechanical prosthetic valves: (Range: 2.5-3.5) Halima Kwan Rodriguez [facility] LAB POINT OF CARE TEST DOCKED DEVICE UNSOLICITED RESULTS [facility] [address] [place] [address] [place] [address] documented in this encounter Visit Diagnoses Diagnosis [...] Directives occurred with: Not Discussed Care Teams Narrow Gauge Operator Relationship Specialty Start Date End Date Xiomara Sapp MD [address] [place] [address] [place] [address] PCP - General Family Medicine 11/16/22 documented as of this encounter"
--- OUTSIDE RECORDS SUMMARY | 2024-06-24 23:45 | External Medical Summary | Summary of Care ---
Author Name Unknown Organization [facility] Address [address] [place] [address] Phone [phone] Care Team Providers Care K 12 Principal Name Role Phone Xiomara Sapp MD Primary Care Prov ider Reason for Visit * Reason Onset Date Comments Test Results 04/12/2024 Advice 04/12/2024 Encounter Details Date Type Department Care Team (Late st Contact Info) Description 04/12/2024 Telephone Urology, 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 Increased risk for hereditary hemochromatosis. S/P hip [...] No 11/29/2023 Does the household have a [facility] source of income? (Household - for ages [...] encounter Miscellaneous Notes * Telephone Encounter - Krystal Aparicio OSA [...] before the weekend Caller was transferred to [facility] at the clinic. documented in this encounter Plan of Treatment Upcoming Encounters Date Type Department Care Team (Late st Contact Info) Description 06/18/2024 9:30 AM EST Anticoagulation Pharmacy, [address] [place] [address] [place] [address] 08/05/2024 8:40 AM EST Office Visit Dermatology [address] [place] [address] Maribel Cazares PA-C [address] [place] [address] [place] [address] 08/21/2024 11:15 AM EST Office Visit Urology, [facility] 132 [facility] [place] [address] Bear Raines MD [address] [place] [address] 10/07/2024 10:00 AM EDT Laboratory Laboratory [employer] [address] [place] [phone] [facility] [address] [place] [address] 10/14/2024 12:30 PM EDT Office [facility]ology[facility] [place] [address] [place] [phone] Genna Can MD [address] [place] [address] [place] [phone] 11/26/2024 1:00 PM EDT Office Visit [address] [place] [phone] Sheri Carpio CRNP [address] [place] [address] [place] [address] 06/09/2025 8:20 AM EST [address] [phone] Xiomara Sapp MD [address] [place] [address] [place] [address] Health Maintenance Due Date Last Done Comments [...] Directives occurred with: Not Discussed Care Teams K 12 Principal Relationship Specialty Start Date End Date Xiomara Sapp MD [address] [place] [address] [place] [address] PCP - General Family Medicine 11/16/22 documented as of this encounter
--- OUTSIDE RECORDS SUMMARY | 2024-06-24 23:46 | External Medical Summary ---
Author Name Unknown Address Unknown Organization : Laboratory Report Ordering Provider Test Date Status ENZO COTO 04/10/2024 11:29:02 Final Therapeutic ranges for non-o perative patients:
Prophylaxsis/treatment of DVT: (Range:2.0-3.0)
Treatment of pulmonary embolism:(Range:2.0-3.0)
Prevention of systemic embolism from:
-tissue heart valves
-acute myocardial infarction
-valvular heart disease
-atrial fibrillation
(Range: 2.0-3.0)
Mechanical prosthetic valves: (Range: 2.5-3.5) Observation Date Value Abnormality Reference (Units ) Status INR in Capillary blood by Coagulation assay 04/10/2024 11:29:02 2.4 (INR) Final Performing Location
--- OUTSIDE RECORDS SUMMARY | 2024-06-24 23:46 | External Medical Summary | Summary of Care ---
Author Name Unknown Organization [facility] Address [address] [place] [address] Phone [phone] Care Team Providers Care Territory Business Manager Name Role Phone Xiomara Sapp MD Primary Care Prov ider Reason for Visit * Reason Onset Date Comments Advice 04/03/2024 Watch for urine culture results Urinary Tract Infection Symptoms 04/03/2024 Encounter Details Date Type Department Care Team (Late st Contact Info) Description 04/03/2024 Telephone Urology Herb Montejo [address] [facility] [address] [place] [address] Bear Craven MD [address] [place] [address] Advice (Watch for urine culture results); ... Allergies Active Allergy Reactions Criticality Noted Date Comments Sulfa Antibiotics 10/16/2003 Unknown reaction Vancomycin Low 06/17/2022 Other reaction(s): red, itchy Other reaction(s): red, itchy documented as of this encounter (statuses as of 04/12/2024) Medications Medication Sig Dispensed Refills Start Date [...] the day. 90 Capsule 3 08/14/2023 Active Warfarin Sodium 5 MG Oral Tablet (Jantoven)Indicatio ns:History of DVT (deep vein thrombosis),History of pulmonary embolism,Anticoagul ation management encounter,correction current use of anticoagulant therapy take 7.5mg (1.5 tablets) on Tuesdays, and saturdays; take 5mg (1 tablet) all other days or as directed by anticoagulation clinic. 100 Tablet 1 09/22/2023 Active Azelastine HCl 0.1 % Nasal Solution (Astelin)Indication s:Other chronic sinusitis,Polyp of nasal cavity administer into each nostril 2 sprays 2 times a day as needed for rhinitis. 30 mL 1 09/26/2023 Active Digoxin 125 MCG Oral Tablet (Lanoxin)Indication s:Paroxysmal SVT (supraventricular tachycardia) (HCC) TAKE ONE TABLET BY MOUTH EVERY DAY 90 Tablet 3 10/03/2023 Active Metoprolol Tartrate 25 MG Oral Tablet (Lopressor)Indicati ons:Paroxysmal SVT (supraventricular tachycardia) (HCC) TAKE 1/2 TABLET BY MOUTH EVERY 12 HOURS 90 Tablet 1 10/31/2023 Active Fluticasone Propionate 50 MCG/ACT Nasal Suspension [...] the morning. 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 Increased risk for hereditary hemochromatosis. S/P hip [...] as of this encounter (statuses as of 04/12/2024) Resolved Problems Problem Noted Date Diagnosed Date [...] as of this encounter (statuses as of 04/12/2024) Immunizations Name Administration Dates Next Due COVID-19 mRNA, LNP-s, No Pre serve, 2-Dose Series (Anda) 10/22/2020,10/01/2020 COVID-19, LNP-s, No Preserve , Cordell-sucrose, [...] Encounter - Johanne Calvo LPN - 04/12/2024 2:53 PM EDT Separate encounter in place for results * Telephone Encounter - Alisa Bowden LPN - 04/08/2024 1:29 PM EDT Spoke with pt. Had UTI 03/01, completed course of antibiotics. Patient had fully remission of symptoms. Monday started with orangish colored urine, cloudy, urgency, abdominal pressure, pain. No fevers,chills. Advised patient to push water, turn in urine sample for culture. * Telephone Encounter - Ailsa Bowden LPN - 04/04/2024 1:33 PM EDT lmtcb * Telephone Encounter - Mirta Charlton OSA - 04/03/2024 10:59 AM EDT Pt calling concerning he is still having UTI symptoms. Pt states since he switched to self cathing he has been having problems and requesting advice. Please reach out documented in this encounter Plan of Treatment Upcoming Encounters Date Type Department Care Team (Late st Contact Info) Description 04/15/2024 10:30 AM EDT Office Visit Hematology/Oncology [address] [place] [phone] Genna Can MD [address] [place] [address] [place] [phone] 04/25/2024 11:50 AM EDT Anticoagulation Pharmacy, [address] [place] [address] [place] [address] 06/03/2024 11:00 AM EST Office Visit Family Medicine [address] [place] [address] Sheri Carpio CRNP [address] [place] [address] [place] [address] 06/06/2024 10:00 AM EST Office Visit Cardiology, [facility] [address] [facility] [place] [address] Iain Ward PA-C 132 [facility] [place] [address] 07/03/2024 8:40 AM EST Office Visit Dermatology [address] [place] [address] Maribel Cazares PA-C [address] [place] [address] [place] [address] 08/21/2024 11:15 AM EST Office Visit Urology, [facility] [address] [facility] [place] [address] Bear Craven MD [address] [place] [address] Health Maintenance Due Date Last Done Comments Adult Wellness Visit 06/09/2016 06/09/2015 COVID-19 Vaccine ( season) 2024 08/03/2021, 10/22/2020, 10/01/2020 Influenza Vaccine (FLU shot) (#1) 2024 03/10/2023, 03/28/2022, 03/12/2021, Additional history exists Depression Screening 11/28/2024 11/29/2023 DIG LEVEL FOR MEDICATION MONITORING YEARLY 12/05/2024 12/06/2023, 11/17/2022, 10/22/2021, Additional history exists GFR 02/20/2025 02/21/2024, 1209/2022, 04/27/2023, Additional history exists Fasting Serum Ferritin [...] Not on filedocumented as of this encounter Results * (ABNORMAL) CULTURE, URINE, QUANTITATIVE (04/09/2024 10:05 AM EDT) Culture Growth >100,000 colonies/mL Escherichia coli(A) MICROBROTH DILUTIONS 04/12/2024 2:10 PM EDT LABORATORY C Urine Urine specimen obtained by clean catch procedure / Unknown Non-blood Collection / Unknown 04/09/2024 10:05 AM EDT 04/09/2024 10:05 AM EDT Narrative Organism Antibiotic Method Susceptibility Escherichia coli Ampicillin MICROBROTH DILUTIONS <=2: Susceptible Escherichia coli Cefazolin MICROBROTH DILUTIONS <=4: Susceptible Escherichia coli Cefepime MICROBROTH DILUTIONS <=1: Susceptible Escherichia coli Ceftriaxone MICROBROTH DILUTIONS <=1: Susceptible Escherichia coli Ciprofloxacin MICROBROTH DILUTIONS <=0.25: Susceptible Comment:Due to jordon us side effects, the FDA has advised against using Ciprofloxacin to treat uncomplicated UTIs and respiratory tract infections unless there are no alternative treatment options. 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
--- OUTSIDE RECORDS SUMMARY | 2024-06-24 23:46 | External Medical Summary ---
Author Name Unknown Address Unknown Organization K01:[facility] [place] [address] [facility] [address] Laboratory Report Ordering Provider Test Date Status OLU THOMPSON 04/09/2024 10:05:02 Final Observation Date Value Abnormality Reference (Units ) Status Bacteria identified in Specimen by Culture 04/09/2024 10:05:02 [id number]^ESCHE RICHIA COLI Abnormal Final >100,000 colonies/mL Escheri lauren coli Performing Location [facility] [place] - [address] [facility] [address] Ordering Provider Test Date Status OLU THOMPSON 04/09/2024 10:05:02 Final Observation Date Value Abnormality Reference (Units ) Status Ampicillin 04/09/2024 10:05:02 <=2 Susceptible Final Cefazolin 04/09/2024 10:05:02 <=4 Susceptible Final Cefepime susceptibility 04/09/2024 10:05:02 <=1 Susceptible Final Ceftriaxone suceptibility 04/09/2024 10:05:02 <=1 Susceptible Final Ciprofloxacin 04/09/2024 10:05:02 <=0.25 Susceptible Final Due to serious side effects, the FDA has advised against using Ciprofloxacin to treat uncomplicated UTIs and respiratory tract infections unless there are no alternative treatment options. Gentamicin susceptibility 04/09/2024 10:05:02 <=1 Susc eptible Final Nitrofurantoin susceptibility 04/09/2024 10:05:02 <=16 Susceptible Final Piperacillin + Tazobactamsusceptibility 04/09/2024 10:05:02 <=4 Susceptible Final TMP-SMZ susceptibility 04/09/2024 10:05:02 <=20 Suscept ible Final Test: Culture, Urine, Quanti tative
Specimen Source: Urine, Clean Catch
Specimen Type: Urine
Specimen Date: 04/09/2024 1005
Result Date: 04/12/2024 1410
Result Status: Final result
Abnormal: Yes
Resulting Lab: [facility]ATORY [facility] [place]
[address]
[place] [address]

CULTURE

>100,000 colonies/mL Escherichia coli (Abnormal)

SUSCEPTIBILITY

Escherichia coli
METHOD MICROBROTH
DILUTIONS

AMPICILLIN <=2 Susceptible
CEFAZOLIN <=4 Susceptible
CEFEPIME <=1 Susceptible
CEFTRIAXONE <=1 Susceptible
CIPROFLOXACIN <=0.25 Susceptible
[1]
GENTAMICIN <=1 Susceptible
NITROFURANTOIN <=16 Susceptible
PIPERACILLIN TAZOBACTAM <=4 Susceptible
TRIMETH/SULFAMETHOXAZOLE <=20 Susceptible

[1] Due to serious side effects, the FDA has advised against using
Ciprofloxacin to treat uncomplicated UTIs and respiratory tract infections
unless there are no alternative treatment options.

null Performing Location LAB[facility]ATORY [facility] [place] - [address] [place] [address]
--- OUTSIDE RECORDS SUMMARY | 2024-06-24 23:46 | External Medical Summary | Summary of Care ---
Author Name Unknown Organization [facility] Address [address] [place] [address] Phone [phone] Care Team Providers Care Digital Content Specialist Name Role Phone Xiomara Sapp MD Primary Care Prov ider Reason for Visit * Reason Onset Date Comments Test Results 04/12/2024 Encounter Details Date Type Department Care Team (Late st Contact Info) Description 04/12/2024 Telephone Urology, [facility] [address] [place] [address] Services, Scheduling [address] [place] [address] Test Results Allergies Active Allergy Reactions Criticality Noted Date [...] vein thrombosis),History of pulmonary embolism,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 Increased risk for hereditary hemochromatosis. S/P hip [...] mRNA, LNP-s, No Pre serve, 2-Dose Series ([employer]) 10/22/2020,10/01/2020 COVID-19, LNP-s, No Preserve , [...] before the weekend Caller was transferred to [facility] at the clinic. documented in this encounter Plan of Treatment Upcoming Encounters Date Type Department Care Team (Late st Contact Info) Description 04/15/2024 10:30 AM EDT Office Visit Hematology/Oncology [facility] [address] [place] [phone] Genna Can MD [address] [place] [address] [place] [phone] 04/25/2024 11:50 AM EDT Anticoagulation Pharmacy, [address] [place] [address] [place] [address] 06/03/2024 11:00 AM EST Office Visit Family Medicine [address] [place] [address] Sheri Carpio CRNP [address] [place] [address] [place] [address] 06/06/2024 10:00 AM EST Office Visit Cardiology, [facility] 132 [facility] [place] [address] Iain Ward PA-C 132 [facility] [place] [address] 07/03/2024 8:40 AM EST Office Visit Dermatology [address] [place] [address] Maribel Cazares PA-C [address] [place] [address] [place] [address] 08/21/2024 11:15 AM EST Office Visit Urology, [facility] [address] [facility] [place] [address] Bear Raines MD [address] [place] [address] Health Maintenance Due Date Last Done Comments [...] Directives occurred with: Not Discussed Care Teams Digital Content Specialist Relationship Specialty Start Date End Date Xiomara Sapp MD [address] [place] [address] [place] [address] PCP - General Family Medicine 11/16/22 documented as of this encounter
--- OUTSIDE RECORDS SUMMARY | 2024-06-24 23:46 | External Medical Summary | Summary of Care ---
Author Name Unknown Organization [facility] Address [address] [place] [address] Phone [phone] Care Team Providers Care Choral Director Name Role Phone Xiomara Sapp MD Primary Care Prov ider Reason for Visit * Reason Comments Outpatient Testing Encounter Details Date Type Department Care Team (Late st Contact Info) Description 04/08/2024 3:50 PM EDT Laboratory Laboratory [address] [place] [phone] [place] [address] BPH with urinary obstruction Allergies Active Allergy Reactions Criticality Noted Date Comments Sulfa Antibiotics 10/16/2003 Unknown reaction Vancomycin Low 06/17/2022 Other reaction(s): red, itchy Other reaction(s): red, itchy documented as of this encounter (statuses as of 04/08/2024) Medications Medication Sig Dispensed Refills Start Date [...] vein thrombosis),History of pulmonary embolism,Anticoagul ation management encounter,[facility] current use of anticoagulant therapy take 7.5mg [...] as of this encounter (statuses as of 04/08/2024) Active Problems Problem Noted Date Diagnosed Date [...] 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 Increased risk for hereditary hemochromatosis. S/P hip [...] as of this encounter (statuses as of 04/08/2024) Resolved Problems Problem Noted Date Diagnosed Date [...] as of this encounter (statuses as of 04/08/2024) Immunizations Name Administration Dates Next Due COVID-19 [...] No 11/29/2023 Does the household have a [facility] source of income? (Household - for ages [...] Care Team (Late st Contact Info) Description 04/10/2024 11:40 AM EDT Anticoagulation Pharmacy, [address] [place] [address] [place] [address] 04/15/2024 10:30 AM EDT Office Visit Hematology/Oncology [facility] [address] [place] [address] Genna Can MD [address] [place] [phone] 06/03/2024 11:00 AM EST Office Visit Family Medicine [address] [place] [phone] Sheri Carpio CRNP [address] [place] [address] [place] [address] 06/06/2024 10:00 AM EST Office Visit Cardiology, [facility] [place] [address] Iain Ward PA-C [address] [place] [address] 07/03/2024 8:40 AM EST Office Visit Dermatology [address] [place] [address] Maribel Cazares PA-C [address] [place] [address] [place] [address] 08/21/2024 11:15 AM EST Office Visit Urology, [facility] [place] [address] Bear Craven MD [address] [place] [address] Health Maintenance Due Date Last Done Comments [...] Directives occurred with: Not Discussed Care Teams Choral Director Relationship Specialty Start Date End Date Xiomara Sapp MD [address] [place] [address] [place] [phone] PCP - General Family Medicine 11/16/22 documented as of this encounter
--- OUTSIDE RECORDS SUMMARY | 2024-06-24 23:46 | External Medical Summary | Summary of Care ---
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 Increased risk for hereditary hemochromatosis. S/P hip [...] No 11/29/2023 Does the household have a [facility] source of income? (Household - [...] Description 04/10/2024 11:40 AM EDT Anticoagulation Pharmacy, [address] [place] [address] [place] [address] 04/15/2024 10:30 AM EDT Office Visit Hematology/Oncology [place] [address] [place] [address] Genna Can MD [address] [place] [phone] 06/03/2024 11:00 AM EST Office Visit Family Medicine [address] [place] [address] Sheri Carpio CRNP [address] [place] [address] [place] [address] 06/06/2024 10:00 AM EST Office Visit Cardiology, [facility] [place] [address] Iain Ward PA-C [address] [place] [address] 07/03/2024 8:40 AM EST Office Visit Dermatology [address] [place] [address] Maribel Cazares PA-C [address] [place] [address] [place] [address] 08/21/2024 11:15 AM EST Office Visit Urology, [facility] 132 [facility] [place] [address] Bear Craven MD [address] [place] [address] Health Maintenance Due Date Last Done Comments [...] Directives occurred with: Not Discussed Care Teams Night Nurse Relationship Specialty Start Date End Date Xiomraa Sapp MD [address] [place] [address] [place] [phone] PCP - General Family Medicine 11/16/22 documented as of this encounter
--- OUTSIDE RECORDS SUMMARY | 2024-06-24 23:46 | External Medical Summary | Summary of Care ---
Author Name Unknown Organization [facility] Address [address] [place] [address] Phone [phone] Care Team Providers Care Case Management Rn Name Role Phone Xiomara Sapp MD Primary Care Prov ider Reason for Visit * Reason Comments Outpatient Testing Encounter Details Date Type Department Care Team (Late st Contact Info) Description 04/09/2024 10:00 AM EDT Laboratory Laboratory [address] [place] [phone] Dr Specimen Drop Off [address] [place] [address] Arrived Allergies Active Allergy Reactions Criticality Noted Date Comments Sulfa Antibiotics 10/16/2003 Unknown reaction Vancomycin Low 06/17/2022 Other reaction(s): red, itchy Other reaction(s): red, itchy documented as of this encounter (statuses as of 04/09/2024) Medications Medication Sig Dispensed Refills Start Date [...] vein thrombosis),History of pulmonary embolism,Anticoagul ation management encounter,[facility] current use of anticoagulant therapy take 7.5mg [...] as of this encounter (statuses as of 04/09/2024) Active Problems Problem Noted Date Diagnosed Date [...] 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 Increased risk for hereditary hemochromatosis. S/P hip [...] as of this encounter (statuses as of 04/09/2024) Resolved Problems Problem Noted Date Diagnosed Date [...] as of this encounter (statuses as of 04/09/2024) Immunizations Name Administration Dates Next Due COVID-19 [...] 18 years and over) Not on file 06/05/202 4 Are you (or your family) alesha eless [...] Description 04/10/2024 11:40 AM EDT Anticoagulation Pharmacy, [address] [place] [address] [place] [address] 04/15/2024 10:30 AM EDT Office Visit Hematology/Oncology [place] [address] [place] [address] [place] [address] Genna Can MD [address] [place] [phone] 06/03/2024 11:00 AM EST Office Visit Family Medicine [address] [place] [address] Sheri Carpio CRNP [address] [place] [address] [place] [address] 06/06/2024 10:00 AM EST Office Visit Cardiology, [facility] 132 [facility] [place] [address] Iain Ward PA-C 132 [facility] [place] [address] 07/03/2024 8:40 AM EST Office Visit Dermatology [address] [place] [address] Maribel Cazares PA-C [address] [place] [address] [place] [address] 08/21/2024 11:15 AM EST Office Visit Urology, [facility] 132 [facility] [place] [address] Bear Craven MD [address] [place] [address] Health Maintenance Due Date Last Done Comments [...] Directives occurred with: Not Discussed Care Teams Case Management Rn Relationship Specialty Start Date End Date Xiomara Sapp MD [address] [place] [address] [place] [address] PCP - General Family Medicine 11/16/22 documented as of this encounter
--- OUTSIDE RECORDS SUMMARY | 2024-06-24 23:46 | External Medical Summary | Summary of Care ---
Author Name Unknown Organization [facility] Address [address] [place] [address] Phone [phone] Care Team Providers Care Head Of Digital Name Role Phone Xiomara Sapp MD Primary Care Prov ider Reason for Visit * Reason Comments eRx-Medication Refill Encounter Details Date Type Department Care Team (Late st Contact Info) Description 04/19/2024 Refill Family Medicine [address] [phone] Xiomara Sapp MD [address] [place] [address] [id number] [phone] Paroxysmal SVT (supraventricular tachycardia) ([facility]); History of DVT (deep vein thrombosis); History of pulmonary embolism; Anticoagulation management encounter; alf current use of anticoagulant therapy Allergies Active Allergy Reactions Criticality Noted Date Comments Sulfa Antibiotics 10/16/2003 Unknown reaction Vancomycin Low 06/17/2022 Other reaction(s): red, itchy Other reaction(s): red, itchy documented as of this encounter (statuses as of 04/21/2024) Medications Medication Sig Dispensed Refills Start Date [...] Active Econazole Nitrate 1 % External Cream (Spectazole)Indica tions:Tinea pedis of both feet APPLY TO AFFECTED AREA TWICE DAILY 85 g 11/26/19 22 Active Folic Acid 1 MG Oral Tablet Take 1 Tablet by mouth in the morning. Active B-12 5000 MCG Oral Capsule Take by mouth 1 Capsule daily . Active Furosemide 40 MG Oral Tablet (Lasix)Indications :Bilateral edema of lower extremity Take 1 Tablet by mouth daily as needed (swelling). for fluid accumulation or weight gain 30 Tablet 3 11/17/19 23 Active Ezetimibe 10 MG Oral Tablet (Zetia) Take 1 Tablet by mouth in the morning. 90 Tablet 3 03/28/20 23 Active Potassium Chloride Kath ER 10 MEQ Oral Tablet Extended ReleaseIndications :Localized edema Take one tablet in the morning when you take the furosemide water pill only 30 Tablet 11 03/28/20 23 Active Meloxicam 15 MG Oral TabletIndications: Primary osteoarthritis of left knee Take 1/2 to 1 tablet daily as needed for pain. 30 Tablet 5 05/23/20 23 Active quiNINE Sulfate 324 MG Oral Capsule (Qualaquin)Indicat ions:Gastroesophag eal reflux disease without esophagitis Take 1 Capsule by mouth every night at bedtime. as needed for cramping. 20 Capsule 11 07/03/19 24 Active Omeprazole 20 MG Oral Capsule Delayed Release (PriLOSEC)Indicati ons:GERD (gastroesophageal reflux disease) Take 1 Capsule by mouth in the morning. 1 hour before the first meal of the day. 90 Capsule 3 08/14/19 24 Active Azelastine HCl 0.1 % Nasal Solution (Astelin)Indicatio ns:Other chronic sinusitis,Polyp of nasal cavity administer into each nostril 2 sprays 2 times a day as needed for rhinitis. 30 mL 1 09/26/19 24 Active Digoxin 125 MCG Oral Tablet (Lanoxin)Indicatio ns:Paroxysmal SVT (supraventricular tachycardia) (HCC) TAKE ONE TABLET BY MOUTH EVERY DAY 90 Tablet 3 10/03/19 24 Active Fluticasone Propionate 50 MCG/ACT Nasal Suspension (Flonase)Indicatio ns:Other chronic sinusitis,Polyp of nasal cavity use 2 [...] Active Metoprolol Tartrate 25 MG Oral Tablet (Lopressor)Indicat ions:Paroxysmal SVT (supraventricular tachycardia) (HCC) TAKE 1/2 TABLET BY MOUTH EVERY 12 HOURS 90 Tablet 3 04/21/20 24 Active Warfarin Sodium 5 MG Oral Tablet (Jantoven)Indicati ons:History of DVT (deep vein thrombosis),Histor y of pulmonary embolism,Anticoagu lation management encounter,alf current use of anticoagulant therapy take 7.5mg (1.5 tablets) on Tuesdays, and saturdays; take 5mg (1 tablet) all other days or as directed by anticoagulation clinic. 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 Increased risk for hereditary hemochromatosis. S/P hip [...] as of this encounter (statuses as of 04/21/2024) Resolved Problems Problem Noted Date Diagnosed Date Resolved Date Encounter for examination fo r normal comparison and control in clinical research program 04/12/2018 04/18/2018 Overview: Diagnosis changed due to Research Module. Go to Snapshot for study details. Primary osteoarthritis of right hip 04/17/2017 03/02/2018 Right lumbar radiculitis 12/20/2016 Neck mass 07/31/2015 08/07/2017 Actinic keratosis 01/21/2015 03/02/2017 Chest pain, non-cardiac 06/04/2012/12/2017 Dyslipidemia, goal to be determined 01/05/2009 02/14/2012 Chest pain 03/20/2007 06/04/2012 Acute cholecystitis 10/16/2003 10/18/19 14 Back disorder 01/27/2015 documented as of this encounter (statuses as of 04/21/2024) Immunizations Name Administration Dates Next Due COVID-19 [...] encounter Miscellaneous Notes * Telephone Encounter - Yudith Vera RP - 04/21/2024 7:04 AM EDTSigned Prescriptions: Disp Refills Metoprolol Tartrate 25 MG Oral Tablet (Lop*90 Tab*3 Sig: TAKE 1/2 TABLET BY MOUTH EVERY 12 HOURSAuthorizing Provider: XIOMARA SAPP User: YUDITH VERA Warfarin Sodium 5 MG Oral Tablet (Jantoven)100 Ta*3 Sig: take 7.5mg (1.5 tablets) on Tuesdays, and saturdays; take 5mg (1 tablet) all other days or as directed by anticoagulation clinic.Authorizing Provider: XIOMARA SAPP User: YUDITH VERA documented in this encounter Plan of Treatment Upcoming Encounters Date Type Department Care Team (Late st Contact Info) Description 04/25/2024 11:50 AM EDT Anticoagulation Pharmacy, [address] [place] [address] [place] [address] 06/03/2024 11:00 AM EST Office Visit Family Medicine [address] [place] [phone] Sheri Carpio CRNP [address] [place] [address] [place] [address] 06/06/2024 10:00 AM EST Office Visit Cardiology, [facility] [address] Iain Ward PASadie [facility] [address] 07/03/2024 8:40 AM EST Office Visit Dermatology [address] [place] [address] Maribel Cazares PA-C [address] [place] [address] [place] [address] 08/21/2024 11:15 AM EST Office Visit Urology, [facility] 132 [facility] [place] [address] Bear Craven MD [address] [place] [address] 10/07/2024 10:00 AM EDT Laboratory Laboratory [facility] [address] [place] [address] [place], Lab [facility] [address] [facility] [place] [address] 10/14/2024 12:30 PM EDT Office Visit Hematology/Oncology 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
--- OUTSIDE RECORDS SUMMARY | 2024-06-24 23:46 | External Medical Summary | Summary of Care ---
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 Increased risk for hereditary hemochromatosis. S/P hip [...] mRNA, LNP-s, No Pre serve, 2-Dose Series ([email or web address]) 10/22/2020,10/01/2020 COVID-19, LNP-s, No Preserve , Cordell-sucrose, [...] before the weekend Caller was transferred to [facility] at the clinic. documented in this encounter Plan of Treatment Upcoming Encounters Date Type Department Care Team (Late st Contact Info) Description 04/15/2024 10:30 AM EDT Office Visit Hematology/Oncology [facility] [place] [place] [facility] [place] [phone] Genna Can MD [address] [place] [address] [place] [phone] 04/25/2024 11:50 AM EDT Anticoagulation Pharmacy, [address] [place] [address] [place] [address] 06/03/2024 11:00 AM EST Office Visit Family Medicine [address] [place] [phone] Sheri Carpio CRNP [address] [place] [address] [place] [address] 06/06/2024 10:00 AM EST Office Visit Cardiology, [facility] [place] [address] Iain Ward PA-C [address] [place] [address] 07/03/2024 8:40 AM EST Office Visit Dermatology [address] [place] [address] Maribel Cazares PA-C [address] [place] [address] [place] [address] 08/21/2024 11:15 AM EST Office Visit Urology, [facility] [address] [place] [address] Bera Craven MD [address] [place] [address] Health Maintenance Due Date Last Done Comments [...] Directives occurred with: Not Discussed Care Teams Burning Plant Operator Relationship Specialty Start Date End Date Xiomara Sapp MD [address] [place] [address] [place] [phone] PCP - General Family Medicine 11/16/22 documented as of this encounter
--- OUTSIDE RECORDS SUMMARY | 2024-06-24 23:46 | External Medical Summary | Summary of Care ---
Author Name Unknown Organization [facility] Address [address] [place] [address] Phone [phone] Care Team Providers Care Submarine Cable Equipment Technician Name Role Phone Xiomara Sapp MD Primary Care Prov ider Reason for Visit * Reason Comments Dosage Adjustment In Person (Anticoag Cl inic) Encounter Details Date Type Department Care Team (Latest Contact Info) Description 04/10/2024 11:40 AM EDT Anticoagulation Pharmacy, [address] [place] [address] [place] [address] Anticoagulation management encounter*; History of DVT (deep vein thrombosis); History of pulmonary embolism Allergies Active Allergy Reactions Criticality Noted Date Comments Sulfa Antibiotics 10/16/2003 Unknown reaction Vancomycin Low 06/17/2022 Other reaction(s): red, itchy Other reaction(s): red, itchy documented as of this encounter (statuses as of 04/10/2024) Medications Medication Sig Dispensed Refills Start Date [...] vein thrombosis),History of pulmonary embolism,Anticoagul ation management encounter,half-way current use of anticoagulant therapy take 7.5mg [...] as of this encounter (statuses as of 04/10/2024) Active Problems Problem Noted Date Diagnosed Date [...] 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 Increased risk for hereditary hemochromatosis. S/P hip [...] as of this encounter (statuses as of 04/10/2024) Resolved Problems Problem Noted Date Diagnosed Date [...] as of this encounter (statuses as of 04/10/2024) Immunizations Name Administration Dates Next Due COVID-19 [...] this encounter Progress Notes * Halima Rodriguez, [facility] - 04/10/2024 11:23 AM EDT Medication Therapy Disease Management - Anticoagulation Patient: Raghavendra Gramajo | : 1940 Subjective Contacts Contact Date/Time Type Contact Phone/Fax 04/03/2024 05:12 AM EDT Vendor (Outgoing) Gramajo Raghavendra Adolfo [phone] 04/07/2024 05:12 AM EDT Vendor (Outgoing) Raghavendra Gramajo [phone] 04/09/2024 05:13 AM EDT Vendor (Outgoing) Raghavendra Gramajo [phone] Patient-Reported Symptoms: Objective Current Warfarin Dose As of 04/10/2024 Warfarin maintenance plan: 7.5 mg (5 mg x 1.5) every Mon, Wed, Fri; 5 mg (5 mg x 1) all other days INR Result As of 04/10/2024 INR goal: 2.0-3.0 INR used for dosin.4 (04/10/2024) Assessment & Plan Warfarin Plan As of 04/10/2024 Full warfarin instructions: 7.5 mg every Mon, Wed, Fri; 5 mg all other days No change documented: Halima Rodriguez RPh Next INR check: 04/25/2024 Repeat PT/INR in 2 week(s) Weekly dose: not changed Additional Dosing Information: I spent a total of 10-19 minutes (exact time 10 mins) on the date of service in preparation, delivery, and documentation of the care provided to Raghavendra Gramajo excluding any time spent in the performance of separately billed services or time spent by another provider/QHP. Halima Rodriguez RP Clinical Pharmacist 04/10/2024, 11:23 AM documented in this encounter Plan of Treatment Upcoming Encounters Date Type Department Care Team (Late st Contact Info) Description 04/15/2024 10:30 AM EDT Office Visit Hematology/Oncology [facility] [address] [place] [address] [place] [phone] Genna Can MD [address] [place] [address] [place] [phone] 04/25/2024 11:50 AM EDT Anticoagulation Pharmacy, [address] [place] [address] [place] [address] 06/03/2024 11:00 AM EST Office Visit Family Medicine [address] [place] [phone] Sheri Carpio CRNP [address] [place] [address] [place] [address] 06/06/2024 10:00 AM EST Office Visit Cardiology, [facility] 132 [facility] [place] [address] Iain Ward PA-C 132 [facility] [place] [address] 07/03/2024 8:40 AM EST Office Visit Dermatology [address] [place] [address] Maribel Cazares PA-C [address] [place] [address] [place] [address] 08/21/2024 11:15 AM EST Office Visit Urology, [facility] 132 [facility] [place] [address] Bear Craven MD [address] [place] [address] Health Maintenance Due Date Last Done Comments [...] Comments INR FINGERSTICK, POINT OF CARE STAT 04/10/2024 11:29 AM EDT Anticoagulation management encounter documented in this encounter Results * INR FINGERSTICK, POINT OF CARE (04/10/2024 11:29 AM EDT) Fingerstick INR 2.4 INR 12:31 PM EDT [facility] Blood 04/10/2024 11:2 9 AM EDT 04/10/2024 12:31 PM EDT Narrative [facility] - 04/10/2024 12:31 PM EDT Therapeutic ranges for non-operative patients: Prophylaxsis/treatment of DVT: (Range:2.0-3.0) Treatment of pulmonary embolism:(Range:2.0-3.0) Prevention of systemic embolism from: -tissue heart valves -acute myocardial infarction -valvular heart disease -atrial fibrillation (Range: 2.0-3.0) Mechanical prosthetic valves: (Range: 2.5-3.5) Halima Rodriguez [facility] POINT OF CARE TEST DOCKED DEVICE UNSOLICITED RESULTS [facility] [place] [address] [place] [address] documented in this encounter Visit Diagnoses Diagnosis [...] Directives occurred with: Not Discussed Care Teams Submarine Cable Equipment Technician Relationship Specialty Start Date End Date Xiomara Sapp MD [address] [place] [address] [place] [address] PCP - General Family Medicine 11/16/22 documented as of this encounter"
--- OUTSIDE RECORDS SUMMARY | 2024-06-24 23:46 | External Medical Summary | Summary of Care ---
Author Name Unknown Organization [facility] Address [address] [place] [address] Phone [phone] Care Team Providers Care Oil Field Laborer Name Role Phone Xiomara Sapp MD Primary Care Prov ider Reason for Visit * Reason Onset Date Comments [facility]: Engagement 03/21/2024 Encounter Details Date Type Department Care Team (Late st Contact Info) Description 03/21/2024 Telephone [facility] [place] [address] [place], [place] [phone] Adela Motta, [place] [address] [place], [place] [phone] [facility]: Engagement Allergies Active Allergy Reactions Criticality Noted Date Comments Sulfa Antibiotics 10/16/2003 Unknown reaction Vancomycin Low 06/17/2022 Other reaction(s): red, itchy Other reaction(s): red, itchy documented as of this encounter (statuses as of 04/12/2024) Medications Medication Sig Dispensed Refills Start Date End Date Status VITAMIN D3 5000 UNITS PO CAPS 1 CAPSULE DAILY 4 Active Magnesium Oxide 400 MG Tablet TAKE ONE TABLET BY MOUTH EVERY DAY 90 Tab 1 5 Active acetaminophen (TYLENOL) 325 MG Tablet Take 1 Tablet by mouth every 6 hours as needed for Pain. Active Econazole Nitrate 1 % External Cream (Spectazole)Indica tions:Tinea pedis of both feet APPLY TO AFFECTED AREA TWICE DAILY 85 g 2 Active Folic Acid 1 MG Oral Tablet Take 1 Tablet by mouth in the morning. Active B-12 5000 MCG Oral Capsule Take by mouth 1 Capsule daily . Active Furosemide 40 MG Oral Tablet (Lasix)Indications :Bilateral edema of lower extremity Take 1 Tablet by mouth daily as needed (swelling). for fluid accumulation or weight gain 30 Tablet 3 3 Active Ezetimibe 10 MG Oral Tablet (Zetia) Take 1 Tablet by mouth in the morning. 90 Tablet 3 3 Active Potassium Chloride Kath ER 10 MEQ Oral Tablet Extended ReleaseIndications :Localized edema Take one tablet in the morning when you take the furosemide water pill only 30 Tablet 11 3 Active Meloxicam 15 MG Oral TabletIndications: Primary osteoarthritis of left knee Take 1/2 to 1 tablet daily as needed for pain. 30 Tablet 5 3 Active quiNINE Sulfate 324 MG Oral Capsule (Qualaquin)Indicat ions:Gastroesophag eal reflux disease without esophagitis Take 1 Capsule by mouth every night at bedtime. as needed for cramping. 20 Capsule 11 4 Active Omeprazole 20 MG Oral Capsule Delayed Release (PriLOSEC)Indicati ons:GERD (gastroesophageal reflux disease) Take 1 Capsule by mouth in the morning. 1 hour before the first meal of the day. 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 100 Tablet 1 4 Active Azelastine HCl 0.1 % Nasal Solution (Astelin)Indicatio ns:Other chronic sinusitis,Polyp of nasal cavity administer into each nostril 2 sprays 2 times a day as needed for rhinitis. 30 mL 1 4 Active Digoxin 125 MCG Oral Tablet (Lanoxin)Indicatio ns:Paroxysmal SVT (supraventricular tachycardia) (HCC) TAKE ONE TABLET BY MOUTH EVERY DAY 90 Tablet 3 4 Active Metoprolol Tartrate 25 MG Oral Tablet (Lopressor)Indicat ions:Paroxysmal SVT (supraventricular tachycardia) (HCC) TAKE 1/2 TABLET BY MOUTH EVERY 12 HOURS 90 Tablet 1 4 Active Fluticasone Propionate 50 MCG/ACT Nasal Suspension (Flonase)Indicatio ns:Other chronic sinusitis,Polyp of nasal cavity use 2 sprays in each nostril daily 48 g 1 4 Active Tamsulosin HCl 0.4 MG Oral Capsule (Flomax) Take 1 Capsule by mouth in the morning. 30 Capsule 6 4 Active Cefdinir 300 MG Oral Capsule (Omnicef) Take 1 Capsule by mouth in the morning and 1 Capsule before bedtime. 20 Capsule 4 Active Additional Information Patient not taking.Reported on 03/27/2024 Finasteride 5 MG Oral Tablet (Proscar) Take 1 Tablet by mouth in the morning. 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 Increased risk for hereditary hemochromatosis. S/P hip [...] mRNA, LNP-s, No Pre serve, 2-Dose Series ([employer]) 10/22/2020,10/01/2020 COVID-19, LNP-s, No Preserve , Cordell-sucrose, [...] Office Visit Hematology/Oncology [facility] [address] [place] [address] Genna Can MD [address] [place] [address] [place] [phone] 04/25/2024 11:50 AM EDT Anticoagulation Pharmacy, [address] [place] [address] [place] [address] 06/03/2024 11:00 AM EST Office Visit Family Medicine [address] [place] [phone] Sheri Carpio [address] [place] [address] 06/06/2024 10:00 AM EST Office Visit Cardiology, [facility] [address] [place] [address] Iain Ward PA-C 132 [facility] [place] [address] 07/03/2024 8:40 AM EST Office Visit Dermatology [address] [place] [address] Maribel Cazares PA-C [address] [place] [address] [place] [address] 08/21/2024 11:15 AM EST Office Visit Urology, [facility] 132 [facility] [place] [address] Bear Craven MD [address] [place] [address] Health Maintenance Due Date Last Done Comments [...] Directives occurred with: Not Discussed Care Teams Oil Field Laborer Relationship Specialty Start Date End Date Xiomara Sapp MD [address] [place] [address] [place] [address] PCP - General Family Medicine 11/16/22 documented as of this encounter
--- OUTSIDE RECORDS SUMMARY | 2024-06-24 23:46 | External Medical Summary | Summary of Care ---
Author Name Unknown Organization [facility] Address [address] [place] [address] Phone [phone] Care Team Providers Care Claims Sorter Name Role Phone Xiomara Sapp MD Primary Care Prov ider Reason for Visit * Reason Comments Follow Up Encounter Details Date Type Department Care Team (Late st Contact Info) Description 04/15/2024 10:30 AM EDT Office Visit Hematology/Oncology [facility] [address] [place] [address] Genna Can MD [address] [facility] [place] [address] Hereditary hemochromatosis (HCC)* Allergies Active Allergy Reactions Criticality Noted Date [...] before bedtime. 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 Increased risk for hereditary hemochromatosis. S/P hip [...] Actinic keratosis 01/21/2015 03/02/2017 Chest pain, non-cardiac 06/04/2012 09/0 12/2017 Dyslipidemia, goal to be determined 01/05/2009 02/14/2012 Chest pain 03/20/2007 06/04/2012 Acute cholecystitis 10/16/2003 10/18/19 14 Back disorder 01/27/2015 documented as of this encounter (statuses as of 2024) Immunizations Name Administration Dates Next Due COVID-19 mRNA, LNP-s, No Pre serve, 2-Dose Series ([employer]) 10/22/2020,10/01/2020 COVID-19, LNP-s, No Preserve , Cordell-sucrose, Ages 12+ ([employer]) 08/03/2021 Pneumococcal Conjugate Vacc, 13 Valent (Prevnar) [...] Sign Reading Time Taken Comments Blood Pressure 112/66 04/15/2024 10:47 AM EDT Pulse 52 04/15/2024 10:47 AM EDT Temperature 36.4 C (97.6 F) 04/15/2024 10:47 AM E DT Respiratory Rate - - Oxygen Saturation 97% 04/15/2024 10:47 AM EDT Inhaled Oxygen Concentration - - Weight 74.6 kg (164 lb 8 oz) 04/15/2024 10:47 AM EDT Height - - Body Mass Index 21.7 02/21/2024 9:39 AM EDT documented in this encounter Functional Status Functional Status Response [...] as of this encounter Progress Notes * Genna Can MD - 04/15/2024 11:35 AM EDT Images from the original note were not included. Date of visit: 04/15/2024 Chief Complaint Patient presents with Follow Up HPI: Raghavendra Gramajo is a 83 year old male presents for Hematology-Oncology consultation on 03/11/2024 dueto anemia and weight loss. 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 He reports his last phlebotomy was in Spring 2023 at [facility], before which it was about 6 months prior. Pt reports that he has liver MRI done in the past at [facility]. He also reports that his son and brother have the HH and that his son recently had to undergo the liver elastography test recently. The pt reports that he is able to eat well, has good appetite. No night sweats reported. Has knee pain. Uses a cane to ambulate. Past Plans SUPPORTIVE CARE Plan Name Cycles Start Date Discontinue Date Discontinue Reason Discontinue User SCP - THERAPEUTIC PHLEBOTOMY (6 Cycles/28 Days) [id number] Treatment not started 01/06/2022 12/31/2021 Other (receiving at [facility]) Sarah Santana RN View plan SCP - THERAPEUTIC PHLEBOTOMY (6 Cycles/28 Days) [id number] -1 of 5 cycles 05/04/2018 11/16/2020 Therapy Complete Sarah Santana RN View plan His most recent labs from 02/21/2024 shows Hemoglobin 13.4 g/dl (normal range 0.0-16.8)/hematocrit 40.8%, RBC 4.31, MCV 94.7, RDW 13%. WBC 5.74 with essentially normal diff. HGB Latest Ref Rng 14.0 - 16.8 g/dL 05/31/2019 15.2 08/28/2019 15.3 02/28/2020 15.4 08/18/2020 15.1 09/07/2020 15.9 (E) 10/27/2020 15.5 11/13/2020 13.9 (L) 11/14/2020 13.6 (L) 11/18/2020 15.0 12/07/2020 15.4 03/12/2021 12.8 (L) 11/12/2021 14.5 11/18/2021 15.8 (E) 12/24/2021 15.5 01/03/2022 41.9 14.4 02/04/2022 13.8 ! (E) 40.5 (E) 02/11/2022 13.8 (L) 05/27/2022 14.9 06/13/2022 14.6 07/12/2022 14.4 08/30/2022 15.0 09/14/2022 15.3 02/22/2023 14.8 (E) 03/01/2023 13.4 ! (E) 04/27/2023 14.8 05/29/2023 14.7 06/02/2023 14.3 (E) 10/11/2023 14.1 10/12/2023 14.7 11/15/2023 14 (E) 11/27/2023 12.7 ! (E) 12/06/2023 13.2 (L) 02/21/2024 13.4 (L) Platelet count: Chronically decreased PLT Latest Ref Rng 140 - 400 K/uL 05/31/2019 135 (L) 08/28/2019 124 (L) 02/28/2020 134 (L) 08/18/2020 127 (L) 09/07/2020 10/27/2020 142 11/13/2020 117 (L) 11/14/2020 124 (L) 11/18/2020 135 (L) 12/07/2020 158 03/12/2021 274 11/12/2021 136 (L) 11/18/2021 12/24/2021 118 (L) 01/03/2022 02/04/2022 02/11/2022 158 05/27/2022 138 (L) 06/13/2022 07/12/2022 120 (L) 08/30/2022 09/14/2022 156 02/22/2023 03/01/2023 04/27/2023 168 05/29/2023 128 (L) 06/02/2023 10/11/2023 114 (L) 10/12/2023 123 (L) 11/15/2023 11/27/2023 12/06/2023 02/21/2024 131 (L) LFTs within normal limit. Metabolic profile within normal limits, creatinine 1.0, no electrolyte abnormality seen. UA with large amount of urine esterase, RBC, WBC, bacteria and slightly cloudy urine- pt reports having completed a course of antibiotic for this (last dose 03/10/2024), he needs to self cath. INR 1.7 on 02/19/2024, 2.5 on 01/23/2024 (patient on therapeutic anticoagulation with warfarin) Radiology studies reviewed: 11/23/2023: Ultrasound abdomen showed dilated bladder with abnormal bladder wall thickening (including numerous septations /trabeculations of the bladder wall periphery). 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 Liver with increased echogenicity and heterogeneous echotexture likely secondary to hemochromatosis given the clinical history. PMH: Patient Active Problem List Diagnosis ADVANCE DIRECTIVE INFORMATION Paroxysmal SVT (supraventricular tachycardia) (HCC) Dyslipidemia, goal [...] (primary) hypertension Detrusor areflexia Dysuria Urinary retention Current Outpatient Medications Medication Sig Dispense Refill [...] No current facility-administered medications for this visit. Review of patient's allergies indicates: Allergen Reactions Sulfa Antibiotics Unknown reaction Vancomycin Other reaction(s): red, itchy Other reaction(s): red, itchy Objective BP 112/66 (BP Site: Left Arm, BP Position: Sitting, BP Cuff Size: Regular) | Pulse 52 | Temp 36.4 C (97.6 F) (Tympanic) | Wt 74.6 kg (164 lb 8 oz) | SpO2 97% | BMI 21.70 kg/m | BSA 1.96 m ASSESSMENT/PLAN: ASSESSMENT/PLAN: Mr. Gramajo is a 83 year old male seen for Hematology-Oncology consultation on 03/11/2024 due to anemia and weight loss. 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 He reports his last phlebotomy was in Spring 2023 at [facility], before which it was about 6 months prior. The pt reports that he is able to eat well, has good appetite. No night sweats reported. Has knee pain. Uses a cane to ambulate. Hx B12 deficiency reported by the patient - was taking oral B12 in the past - now ran out of B12 and did not take it for the past several months. Chronic thrombocytopenia- likely due to liver involvement. Liver eco texture was heterogeneously enhanced on USG abdomen performed 11/23/2023. Presents for follow up Labs reviewed MRI liver for iron content estimation- reviewed. Hereditary hemochromatosis (HCC) (Primary) - CBC WITH WBC DIFFERENTIAL; Future; Expected date: 04/15/2024 - COMPREHENSIVE METABOLIC PANEL; Future; Expected date: 04/15/2024 - ALPHA-FETOPROTEIN TUMOR MARKER; Future; Expected date: 04/15/2024 - FERRITIN; Future; Expected date: 04/15/2024 - IRON SCREEN, INCLUDING TIBC; Future; Expected date: 04/15/2024 PLAN OF CARE DISCUSSED WITH PATIENT ON 04/15/2024 : Follow-up: Return in about 6 months (around 10/14/2024). | Check-out note: Labs 1 week before followup visit in 6 months documented in this encounter Nursing Notes * Monica Hernandez MED ASSIST - 04/15/2024 10:55 AM EDT Patient identifed by name and birthdate Do you have any concerns about pain management for today's visit? Yes. Patient instructed to discuss pain concerns with provider during the visit today Living Will or Advance Directive for Health Care as noted on the problem list. [facility] is a way you can talk to your provider on line through e-mail. Would you like to sign up? I can activate it for you? ALREADY ACTIVE Filed Vitals: 04/15/24 1047 BP: 112/66 Pulse: 52 Temp: 36.4 C (97.6 F) TempSrc: Tympanic SpO2: 97% Weight: 74.6 kg (164 lb 8 oz) Patient was instructed to not get up on the exam table/exam chair until directed and assisted by their provider; patient is to remain seated in the chair/ wheelchair/ exam table/ exam chair for fall prevention and safety reasons. Patient is aware to have assistance to step down off exam table/exam chair with personnel. Patient voiced full comprehension of instructions. documented in this encounter Plan of Treatment Upcoming Encounters Date Type Department Care Team (Late st Contact Info) Description 04/25/2024 11:50 AM EDT Anticoagulation Pharmacy, [address] [place] [address] [place] [address] 06/03/2024 11:00 AM EST Office Visit Family Medicine [address] [place] [phone] Sheri Carpio CRNP [address] [place] [address] [place] [address] 06/06/2024 10:00 AM EST Office Visit Cardiology, [facility] 132 [facility] [place] [address] Iain Ward PA-C [address] [place] [address] 07/03/2024 8:40 AM EST Office Visit Dermatology [address] [place] [address] Maribel Cazares PA-C [address] [place] [address] [place] [address] 08/21/2024 11:15 AM EST Office [facility] [place] [address] Bear Craven MD [address] [facility] [place] [address] 10/07/2024 10:00 AM EDT Laboratory Laboratory [facility] [address] [place] [phone] [place], Lab [facility] [address] [place] [address] 10/14/2024 12:30 PM EDT Office Visit Hematology/Oncology [facility] [place] [address] [place] [phone] Genna Can MD 400 [facility] [place] [phone] Scheduled Orders Name Type Priority Associated Diagnoses Orde r Schedule CBC WITH WBC DIFFERENTIAL Lab Routine Hereditary hemochromatosis (HCC) Expected: 04/15/2024, Expires: 04/15/2025 COMPREHENSIVE METABOLIC PANEL Lab STAT Hereditary hemochromatosis (HCC) Expected: 04/15/2024, Expires: 04/15/2025 ALPHA-FETOPROTEIN TUMOR MARKER Lab Routine Hereditary hemochromatosis (HCC) Expected: 04/15/2024, Expires: 04/15/2025 FERRITIN Lab Routine Hereditary hemochromatosis (HCC) Expected: 04/15/2024, Expires: 04/15/2025 IRON SCREEN, INCLUDING TIBC Lab Routine Hereditary hemochromatosis (HCC) Expected: 04/15/2024, Expires: 04/15/2025 Health Maintenance Due Date Last Done Comments [...] as of this encounter Visit Diagnoses Diagnosis Hereditary hemochromatosis (HCC)- Primary Hereditary hemochromatosis documented in this encounter Advance Directives * Full Code (Latest Code Status on File) Date Activated Date Inactivated Comments 11/13/2020 4:45 PM 11/14/2020 5:13 PM Question Answer Comments Discussion of Advance Directives occurred with: Not Discussed Care Teams Claims Sorter Relationship Specialty Start Date End Date Xiomara Sapp MD [address] [place] [address] [place] [address] PCP - General Family Medicine 11/16/22 documented as of this encounter"
--- OUTSIDE RECORDS SUMMARY | 2024-06-24 23:46 | External Medical Summary | Summary of Care ---
Author Name Unknown Organization [facility] Address [address] [place] [address] Phone [phone] Care Team Providers Care Tongue And Groove Machine Feeder Name Role Phone Xiomara Sapp MD Primary Care Prov ider Reason for Visit * Reason Onset Date Comments Test Results 04/12/2024 Encounter Details Date Type Department Care Team (Late st Contact Info) Description 04/12/2024 Telephone Urology, [facility] [address] [place] [address] Services, Scheduling [address] [place] [address] Test Results Allergies Active Allergy Reactions Criticality [...] vein thrombosis),History of pulmonary embolism,Anticoagul ation management encounter,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 Increased risk for hereditary hemochromatosis. S/P hip [...] mRNA, LNP-s, No Pre serve, 2-Dose Series ([employer]) 10/22/2020,10/01/2020 COVID-19, LNP-s, No Preserve , Cordell-sucrose, [...] as of this encounter Miscellaneous Notes * Addendum Note [...] before the weekend Caller was transferred to [facility] at the clinic. documented in this encounter Plan of Treatment Upcoming Encounters Date Type Department Care Team (Late st Contact Info) Description 04/15/2024 10:30 AM EDT Office Visit Hematology/Oncology [address] [place] [phone] Genna Can MD [address] [place] [address] [place] [phone] 04/25/2024 11:50 AM EDT Anticoagulation Pharmacy, [address] [place] [address] [place] [address] 06/03/2024 11:00 AM EST Office Visit Family Medicine [address] [place] [phone] Sheri Carpio CRNP [address] [place] [address] [place] [address] 06/06/2024 10:00 AM EST Office Visit Cardiology, [facility] [address] [place] [address] Iain Ward PA-C 132 [facility] [place] [address] 07/03/2024 8:40 AM EST Office Visit Dermatology [address] [place] [address] Maribel Cazares PA-C [address] [place] [address] [place] [address] 08/21/2024 11:15 AM EST Office Visit Urology, [facility] [address] [place] [address] Bear Raines MD 27 [place] [address] Health Maintenance Due Date Last Done Comments [...] Completed 01/27/2015, 08/17/2012 Zoster Vaccines Completed 12/21/2019, 0 12/2017, 06/23/2015 RETIRED - COLONOSCOPY-EVERY 5 YRS [...] Directives occurred with: Not Discussed Care Teams Tongue And Groove Machine Feeder Relationship Specialty Start Date End Date Xiomara Sapp MD [address] [place] [address] [place] [address] PCP - General Family Medicine 11/16/22 documented as of this encounter
--- OUTSIDE RECORDS SUMMARY | 2024-06-24 23:47 | External Medical Summary | Summary of Care ---
Author Name Unknown Organization [facility] Address [address] [place] [address] Phone [phone] Care Team Providers Care Diesel Engineer Name Role Phone Xiomara Sapp MD Primary Care Prov ider Reason for Visit * Reason Onset Date Comments Advice 04/03/2024 Watch for urine culture results Urinary Tract Infection Symptoms 04/03/2024 Encounter Details Date Type Department Care Team (Late st Contact Info) Description 04/03/2024 Telephone Urology Herb Montejo [address] [facility] [address] [place] [address] Bear Craven [...] vein thrombosis),History of pulmonary embolism,Anticoagul ation management encounter,snf current use of anticoagulant therapy [...] 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 Increased risk for hereditary hemochromatosis. S/P hip [...] mRNA, LNP-s, No Pre serve, 2-Dose Series ([employer]) 10/22/2020,10/01/2020 COVID-19, LNP-s, No Preserve , Cordell-sucrose, [...] sample for culture. * Telephone Encounter - Alisa Bowden LPN - 04/04/2024 1:33 PM EDT [...] Description 04/10/2024 11:40 AM EDT Anticoagulation Pharmacy, [address] [place] [address] [place] [address] 04/15/2024 10:30 AM EDT Office Visit Hematology/Oncology [address] [place] [phone] Genna Can MD [address] [place] [address] [place] [phone] 06/03/2024 11:00 AM EST Office Visit Family Medicine [address] [place] [phone] Sheri Carpio [address] [place] [address] 06/06/2024 10:00 AM EST Office Visit [facility]iology, [facility] [place] [address] Iain Ward PA-C [address] [place] [address] 07/03/2024 8:40 AM EST Office Visit Dermatology [address] [place] [address] Maribel Cazares PA-C [address] [place] [address] [place] [address] 08/21/2024 11:15 AM EST Office Visit Urology, [facility] [place] [address] Bear Craven MD [address] [place] [phone] Scheduled Orders Name Type Priority Associated Diagnoses Orde r Schedule CULTURE, URINE, QUANTITATIVE Lab Routine BPH with urinary obstruction Expected: 04/08/2024, Expires: 04/08/2025 Health Maintenance Due Date Last Done Comments [...] Directives occurred with: Not Discussed Care Teams Diesel Engineer Relationship Specialty Start Date End Date Xiomara Sapp MD [address] [place] [address] [place] [address] PCP - General Family Medicine 11/16/22 documented as of this encounter
--- OUTSIDE RECORDS SUMMARY | 2024-06-24 23:47 | External Medical Summary | Summary of Care ---
Author Name Unknown Organization [facility] Address [address] [place] [address] Phone [phone] Care Team Providers Care Supervisor Slashing Department Name Role Phone Xiomara Sapp MD Primary Care Prov ider Reason for Visit * Reason Onset Date Comments Advice 04/02/2024 MRI order Encounter Details Date Type Department Care Team (Late st Contact Info) Description 04/02/2024 Telephone Hematology/Oncology [facility] [place] [address] [place] [address] Services, Scheduling [address] [place] [address] Advice (MRI order /) Allergies Active Allergy Reactions Criticality Noted Date Comments Sulfa Antibiotics 10/16/2003 Unknown reaction Vancomycin Low 06/17/2022 Other reaction(s): red, itchy Other reaction(s): red, itchy documented as of this encounter (statuses as of 04/04/2024) Medications Medication Sig Dispensed Refills Start Date [...] vein thrombosis),History of pulmonary embolism,Anticoagul 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 Increased risk for hereditary hemochromatosis. S/P hip [...] as of this encounter (statuses as of 04/04/2024) Resolved Problems Problem Noted Date Diagnosed Date [...] as of this encounter (statuses as of 04/04/2024) Immunizations Name Administration Dates Next Due COVID-19 mRNA, LNP-s, No Pre serve, 2-Dose Series ([employer]) 10/22/2020,10/01/2020 COVID-19, LNP-s, No Preserve , Cordell-sucrose, [...] encounter Miscellaneous Notes * Telephone Encounter - Sarah Reddy RN - 04/02/2024 12:[address] Can: please advise on order. * Telephone Encounter - Lucy Lai OSA - 04/02/2024 12:29 PM EDT Mirta from radiology calling in- she states she scheduled patient for MRI Liver, but a note was put in from someone in our office labeled "Liver elastography " in the appointment. She states if this is what Dr. Meyers would like- an order for Liver elastography must be put in or an MRI w/ an iron quantitative order. She states she is cancelling this MRI until this order is clarified. documented in this encounter Plan of Treatment Upcoming Encounters Date Type Department Care Team (Late st Contact Info) Description 04/05/2024 5:30 PM EDT Hospital Encounter [facility] [place] [facility] [address] 04/10/2024 11:40 AM EDT Anticoagulation Pharmacy, [address] [place] [address] [place] [address] 04/15/2024 10:30 AM EDT Office Visit Hematology/Oncology [facility] 200 [facility] [phone] Genna Can MD 400 [facility] [place] [phone] 06/03/2024 11:00 AM EST Office Visit Family Medicine [address] [place] [phone] [address] [place] [address] 06/06/2024 10:00 AM EST Office Visit Cardiology, [facility] [address] [address] Iain Ward PA-C [address] [place] [address] 07/03/2024 8:40 AM EST Office Visit Dermatology [address] [place] [address] Maribel Cazares PA-C [address] [place] [address] [place] [address] 08/21/2024 11:15 AM EST Office Visit Urology, [facility] [address] [place] [address] Bear Craven MD 27 [place] [address] Health Maintenance Due Date Last Done [...] Directives occurred with: Not Discussed Care Teams Supervisor Slashing Department Relationship Specialty Start Date End Date Xiomara Sapp MD [address] [place] [address] [place] [address] PCP - General Family Medicine 11/16/22 documented as of this encounter
--- OUTSIDE RECORDS SUMMARY | 2024-06-24 23:47 | External Medical Summary | Summary of Care ---
Author Name Unknown Organization [facility] Address [address] [place] [address] Phone [phone] Care Team Providers Care Dictaphone Transcriber Name Role Phone Xiomara Sapp MD Primary Care Prov ider Reason for Visit * Reason Onset Date Comments Medication Refill 01/16/2024 Encounter Details Date Type Department Care Team (Late st Contact Info) Description 01/16/2024 Refill Family Medicine [address] [phone] Xiomara Sapp MD [address] [place], [place] [address] [id number] Allergies Active Allergy Reactions Criticality Noted Date Comments Sulfa Antibiotics 10/16/2003 Unknown reaction Vancomycin Low 06/17/2022 Other reaction(s): red, itchy Other reaction(s): red, itchy documented as of this encounter (statuses as of 04/03/2024) Medications Medication Sig Dispensed Refills Start Date [...] thrombosis),Histor y of pulmonary embolism,Anticoagu lation management encounter,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 30 Capsule 6 3 02/29/20 24 Discontinu ed(Refill) Finasteride 5 MG Oral Tablet (Proscar) Take 1 Tablet by mouth in the morning. 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 Increased risk for hereditary hemochromatosis. S/P hip [...] as of this encounter (statuses as of 04/03/2024) Resolved Problems Problem Noted Date Diagnosed Date [...] as of this encounter (statuses as of 04/03/2024) Immunizations Name Administration Dates Next Due COVID-19 [...] 04/05/2024 5:30 PM EDT Hospital Encounter MRI, [place] [facility] [place] [address] 04/10/2024 11:40 AM EDT Anticoagulation Pharmacy, [address] [place] [address] [place] [address] 04/15/2024 10:30 AM EDT Office Visit Hematology/Oncology [facility] 200 [facility] [place] [phone] Genna Can MD [address] [place] [address] 06/03/2024 11:00 AM EST Office Visit Family Medicine [address] [place] [phone] Sheri Carpio CRNP [address] [place] [address] [place] [address] 06/06/2024 10:00 AM EST Office Visit Cardiology, [facility] 132 [facility] [place] [address] Iain Ward PA-C 132 [facility] [place] [address] 07/03/2024 8:40 AM EST Office Visit Dermatology [address] [place] [address] Maribel Cazares PA-C [address] [place] [address] [place] [address] 08/21/2024 11:15 AM EST Office Visit Urology, [facility] 132 [facility] [place] [address] Bear Craevn MD 27 [place] [address] Health Maintenance Due Date Last Done Comments [...] Directives occurred with: Not Discussed Care Teams Dictaphone Transcriber Relationship Specialty Start Date End Date Xiomara Sapp MD [address] [place] [address] [place] [phone] PCP - General Family Medicine 11/16/22 documented as of this encounter
--- OUTSIDE RECORDS SUMMARY | 2024-06-24 23:47 | External Medical Summary | Summary of Care ---
Author Name Unknown Organization [facility] Address [address] [place] [address] Phone [phone] Care Team Providers Care Bank Officer Name Role Phone Xiomara Sapp MD Primary Care Prov ider Reason for Visit * Reason Comments Office Procedure Fibroscan Encounter Details Date Type Department Care Team (Late st Contact Info) Description 04/01/2024 10:30 AM EDT Nurse Only Gastroenterology, [address], [place] [address] [place] [address] Herb, Nurse Gastro [address] [facility] [address] [place] [address] Office Procedure (Fibroscan) Allergies Active Allergy Reactions Criticality Noted Date Comments Sulfa Antibiotics 10/16/2003 Unknown reaction Vancomycin Low 06/17/2022 Other reaction(s): red, itchy Other reaction(s): red, itchy documented as of this encounter (statuses as of 04/01/2024) Medications Medication Sig Dispensed Refills Start Date [...] vein thrombosis),History of pulmonary embolism,Anticoagul ation management encounter,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 Increased risk for hereditary hemochromatosis. S/P hip [...] as of this encounter (statuses as of 04/01/2024) Resolved Problems Problem Noted Date Diagnosed Date [...] as of this encounter (statuses as of 04/01/2024) Immunizations Name Administration Dates Next Due COVID-19 [...] as of this encounter Progress Notes * Ksenia Monahan RN - 04/01/2024 10:[address] [facility] Fibroscan/Vibration Controlled Transient [...] Anabel Avery DO References: Svetlana Finn, Samy Mata. (2014) Utilization of FibroScan in Clinical Practice. Curr Gastroenterol Rep. DOI 10.1007/m87527-972-4876-6 Table 1 Recommended values for different stage [...] Team (Late st Contact Info) Description 04/02/2024 9:40 AM EDT Anticoagulation Pharmacy, [address] [place] [address] [place] [address] 04/05/2024 5:30 PM EDT Appointment [facility], [address] [place] [address] 04/15/2024 10:30 AM EDT Office Visit Hematology/Oncology [facility] [place] [facility] [place] [phone] Genna Can MD [address] [place] [address] [place] [phone] 06/03/2024 11:00 AM EST Office Visit Family Medicine [address] [place] [phone] [address]ri Carpio [address] [place] [address] 06/06/2024 10:00 AM EST Office Visit Cardiology, [facility] [address] [facility] [place] [address] Iain Ward PA-C [address] [place] [address] 07/03/2024 8:40 AM EST Office Visit Dermatology [address] [place] [address] Maribel Cazares PA-C [address] [place] [address] [place] [address] 08/21/2024 11:15 AM EST Office Visit Urology, [facility] [address] [facility] [place] [address] Bear Craven MD [address] [place] [address] Pending Results Name Type Priority Associated Diagnoses [...] Directives occurred with: Not Discussed Care Teams Bank Officer Relationship Specialty Start Date End Date Xiomara Sapp MD [address] [place] [address] [place] [address] PCP - General Family Medicine 11/16/22 documented as of this encounter
--- OUTSIDE RECORDS SUMMARY | 2024-06-24 23:47 | External Medical Summary ---
Author Name Unknown Address Unknown Organization : Laboratory Report Ordering Provider Test Date Status ENZO COTO 04/02/2024 09:36:10 Final Therapeutic ranges for non-o perative patients:
Prophylaxsis/treatment of DVT: (Range:2.0-3.0)
Treatment of pulmonary embolism:(Range:2.0-3.0)
Prevention of systemic embolism from:
-tissue heart valves
-acute myocardial infarction
-valvular heart disease
-atrial fibrillation
(Range: 2.0-3.0)
Mechanical prosthetic valves: (Range: 2.5-3.5) Observation Date Value Abnormality Reference (Units ) Status INR in Capillary blood by Coagulation assay 04/02/2024 09:36:10 1.7 (INR) Final Performing Location
--- OUTSIDE RECORDS SUMMARY | 2024-06-24 23:47 | External Medical Summary | Summary of Care ---
Author Name Unknown Organization [facility] Address [address] [place] [address] Phone [phone] Care Team Providers Care Pe Manager Name Role Phone Xiomara Sapp MD Primary Care Prov ider Reason for Visit * Reason Onset Date Comments Advice 04/03/2024 Watch for urine culture results Urinary Tract Infection Symptoms 04/03/2024 Encounter Details Date Type Department Care Team (Late st Contact Info) Description 04/03/2024 Telephone Urology Herb Montejo [address] [facility] [address] [place] [address] Bear Craven [...] vein thrombosis),History of pulmonary embolism,Anticoagul ation management encounter,assisted current use of anticoagulant therapy [...] 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 Increased risk for hereditary hemochromatosis. S/P [...] mRNA, LNP-s, No Pre serve, 2-Dose Series ([employer] 10/22/2020,10/01/2020 COVID-19, LNP-s, No Preserve , [...] Description 04/10/2024 11:40 AM EDT Anticoagulation Pharmacy, [address] [place] [address] [place] [address] 04/15/2024 10:30 AM EDT Office Visit Hematology/Oncology [address] [place] [phone] Genna Can MD [address] [place] [address] [place] [phone] 06/03/2024 11:00 AM EST Office Visit Family Medicine [address] [place] [phone] Sheri Carpio [address] [place] [address] 06/06/2024 10:00 AM EST Office Visit [facility]iology, [facility] [place] [address] Iain Ward PA-C [address] [place] [address] 07/03/2024 8:40 AM EST Office Visit Dermatology [address] [place] [address] Maribel Cazares PA-C [address] [place] [address] [place] [address] 08/21/2024 11:15 AM EST Office Visit Urology, [facility] [place] [address] Bear Craven MD [address] [place] [phone] Scheduled Orders Name Type Priority Associated Diagnoses [...] Directives occurred with: Not Discussed Care Teams Pe Manager Relationship Specialty Start Date End Date Xiomara Sapp MD [address] [place] [address] [place] [address] PCP - General Family Medicine 11/16/22 documented as of this encounter
--- OUTSIDE RECORDS SUMMARY | 2024-06-24 23:47 | External Medical Summary | Summary of Care ---
Author Name Unknown Organization [facility] Address [address] [place] [address] Phone [phone] Care Team Providers Care Behavioral Health Director Name Role Phone Xiomara Sapp MD Primary Care Prov ider Reason for Referral * Precert (Within 10 days (routine)) - Authorized Specialty Diagnoses / Procedures Referred By Contac t Referred To Contact Radiology Diagnoses Hereditary hemochromatosis (HCC) Procedures MRI QUANTITATIVE ANALYSIS OF TISSUE COMPOSITION (FAT,IRON,WATER CONTENT) WITH DIAGNOSTIC MRI; SINGLE ORGAN Genna Can MD [address] [place] [address] Referral ID Status Reason Start Date Expiration Date V isits Requested Visits Authorized [id number] Authorized 04/05/2024 999 999 * Precert (Within 24 hrs (call dept; emergent)) - Pending Review Specialty Diagnoses / Procedures Referred By Contac t Referred To Contact Radiology Diagnoses Hereditary hemochromatosis (HCC) Procedures MRI LIVER W WO CONTRAST Genna Can MD [address] [place] [address] Referral ID Status Reason Start Date Expiration Date V isits Requested Visits Authorized [id number] Pending Review 03/11/2024 999 999 Reason for Visit * Precert (Within 24 hrs (call dept; emergent)) - Pending Review Specialty Diagnoses / Procedures Referred By Contac t Referred To Contact Radiology Diagnoses Hereditary hemochromatosis (HCC) Procedures MRI LIVER W WO CONTRAST Genna Can MD [address] [place] [phone] Referral ID Status Reason Start Date Expiration Date V isits Requested Visits Authorized [id number] Pending Review 03/11/2024 999 [id number] Encounter Details Date Type Department Care Team (Latest Contact Info) Description 04/05/2024 4:36 PM EDT - 04/05/2024 11:59 PM EDT Hospital Encounter [facility] [place] [address] [place], [place] [id number] Arrived Discharge Disposition: Home - Self Care Allergies Active Allergy Reactions Criticality Noted Date Comments Sulfa Antibiotics 10/16/2003 Unknown reaction Vancomycin Low 06/17/2022 Other reaction(s): red, itchy Other reaction(s): red, itchy documented as of this encounter (statuses as of 04/06/2024) Medications Medication Sig Dispensed Refills Start Date [...] vein thrombosis),History of pulmonary embolism,Anticoagul ation management encounter,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 Increased risk for hereditary hemochromatosis. S/P hip [...] as of this encounter (statuses as of 04/06/2024) Resolved Problems Problem Noted Date Diagnosed Date [...] as of this encounter (statuses as of 04/06/2024) Immunizations Name Administration Dates Next Due COVID-19 [...] Description 04/10/2024 11:40 AM EDT Anticoagulation Pharmacy, [address] [place] [address] [place] [address] 04/15/2024 10:30 AM EDT Office Visit Hematology/Oncology [facility] [place] [address] [place] [phone] Genna Can MD [address] [place] [address] [place] [phone] 06/03/2024 11:00 AM EST Office Visit Family Medicine [address] [place] [phone] Sheri Carpio CRNP [address] [place] [address] [place] [address] 06/06/2024 10:00 AM EST Office Visit Cardiology, [facility] 132 [facility] [place] [address] Iain Ward PA-C 132 [facility] [place] [address] 07/03/2024 8:40 AM EST Office Visit Dermatology [address] [place] [address] Maribel Cazares PA-C [address] [place] [address] [place] [address] 08/21/2024 11:15 AM EST Office Visit Urology, [facility] 132 [facility] [place] [address] Bear Craven MD [address] [place] [address] Health Maintenance Due Date Last Done Comments [...] Procedure Name Priority Date/Time Associated Diagnosis Comments MRI QUANTITATIVE ANALYSIS OF TISSUE COMPOSITION (FAT,IRON,WATER CONTENT) WITH DIAGNOSTIC MRI; SINGLE ORGAN Routine 04/05/2024 6:12 PM EDT Hereditary hemochromatosis (HCC) MRI LIVER W WO CONTRAST STAT 04/05/2024 6:12 PM EDT Hereditary hemochromatosis (HCC) documented in this encounter Results * MRI QUANTITATIVE ANALYSIS OF TISSUE COMPOSITION (FAT,IRON,WATER CONTENT) WITH DIAGNOSTIC MRI; SINGLE ORGAN (04/05/2024 6:12 PM EDT) Anatomical Region Laterality Modality Abdomen Magnetic Resonan ce 04/05/2024 6:34 PM EDT Impressions 04/05/2024 6:31 PM EDT IMPRESSION Estimated liver iron concentration is within normal limits, as above. Narrative 04/05/2024 6:31 PM EDT EXAM MRI QUANTITATIVE ANALYSIS OF TISSUE COMPOSITION (FAT,IRON,WATER CONTENT) WITH DIAGNOSTIC MRI; SINGLE ORGAN; MRI LIVER W WO CONTRAST-04/05/2024 6:12 pm HISTORY Liver iron content estimation COMPARISON MRI abdomen 05/25/2018. TECHNIQUE Multiplanar, multisequential MR imaging of the abdomen was performed with and without intravenous contrast. Iron and fat quantification sequences were also performed. FINDINGS PROBLEM SPECIFIC FINDINGS: García acquisition values are reported from the automatically generated ROIs in the right liver. Based on R2* values of 36 s-1, liver iron concentration is estimated to correspond to approximately 1.2 mg/g using a linear conversion factor of 0.032. <2 mg/g is normal. Fat percentage estimation ranges from 3 (García) to 2.6%(HISTO). ADDITIONAL FINDINGS: LIVER: Top-normal in size. Normal morphology. No suspicious mass. BILE DUCTS: No abnormal biliary ductal dilation. GALLBLADDER: Cholecystectomy. PANCREAS: Grossly normal. No main pancreatic duct dilation. SPLEEN: Within normal limits. ADRENAL GLANDS: Within normal limits. KIDNEYS/PROXIMAL URETERS: No hydronephrosis. No suspicious renal mass. VISUALIZED BOWEL: Nondilated. PERITONEUM/RETROPERITONEUM: No ascites. LYMPH NODES: No abdominal lymphadenopathy. VESSELS: No abdominal aortic aneurysm. ABDOMINAL WALL: Within normal limits. MUSCULOSKELETAL: Degenerate changes of the visualized spine. Posterior spinal fusion of the lower lumbar spine. Procedure Note Randi Macedo MD - 04/05/2024 EXAM MRI QUANTITATIVE ANALYSIS OF TISSUE COMPOSITION (FAT,IRON,WATER CONTENT)WITH DIAGNOSTIC MRI; SINGLE ORGAN; MRI LIVER W WO CONTRAST-04/05/2024 6:12pm HISTORY Liver iron content estimation COMPARISON MRI abdomen 05/25/2018. TECHNIQUE Multiplanar, multisequential MR imaging of the abdomen was performed withand without intravenous contrast. Iron and fat quantification sequenceswere also performed. FINDINGS PROBLEM SPECIFIC FINDINGS: García acquisition values are reported from the automatically generatedROIs in the right liver. Based on R2* values of 36 s-1, liver iron concentration is estimated tocorrespond to approximately 1.2 mg/g using a linear conversion factor of0.032. <2 mg/g is normal. Fat percentage estimation ranges from 3 (García) to 2.6%(HISTO). ADDITIONAL FINDINGS: LIVER: Top-normal in size. Normal morphology. No suspicious mass. BILE DUCTS: No abnormal biliary ductal dilation. GALLBLADDER: Cholecystectomy. PANCREAS: Grossly normal. No main pancreatic duct dilation. SPLEEN: Within normal limits. ADRENAL GLANDS: Within normal limits. KIDNEYS/PROXIMAL URETERS: No hydronephrosis. No suspicious renal mass. VISUALIZED BOWEL: Nondilated. PERITONEUM/RETROPERITONEUM: No ascites. LYMPH NODES: No abdominal lymphadenopathy. VESSELS: No abdominal aortic aneurysm. ABDOMINAL WALL: Within normal limits. MUSCULOSKELETAL: Degenerate changes of the visualized spine. Posteriorspinal fusion of the lower lumbar spine. IMPRESSION IMPRESSION Estimated liver iron concentration is within normal limits, as above. Genna Can MD RAD MRI-MRA * MRI LIVER W WO CONTRAST (04/05/2024 6:12 PM EDT) Anatomical Region Laterality Modality Abdomen Magnetic Resonan ce 04/05/2024 6:34 PM EDT Impressions 04/05/2024 6:31 PM EDT IMPRESSION Estimated liver iron concentration is within normal limits, as above. Narrative 04/05/2024 6:31 PM EDT EXAM MRI QUANTITATIVE ANALYSIS OF TISSUE COMPOSITION (FAT,IRON,WATER CONTENT) WITH DIAGNOSTIC MRI; SINGLE ORGAN; MRI LIVER W WO CONTRAST-04/05/2024 6:12 pm HISTORY Liver iron content estimation COMPARISON MRI abdomen 05/25/2018. TECHNIQUE Multiplanar, multisequential MR imaging of the abdomen was performed with and without intravenous contrast. Iron and fat quantification sequences were also performed. FINDINGS PROBLEM SPECIFIC FINDINGS: García acquisition values are reported from the automatically generated ROIs in the right liver. Based on R2* values of 36 s-1, liver iron concentration is estimated to correspond to approximately 1.2 mg/g using a linear conversion factor of 0.032. <2 mg/g is normal. Fat percentage estimation ranges from 3 (García) to 2.6%(HISTO). ADDITIONAL FINDINGS: LIVER: Top-normal in size. Normal morphology. No suspicious mass. BILE DUCTS: No abnormal biliary ductal dilation. GALLBLADDER: Cholecystectomy. PANCREAS: Grossly normal. No main pancreatic duct dilation. SPLEEN: Within normal limits. ADRENAL GLANDS: Within normal limits. KIDNEYS/PROXIMAL URETERS: No hydronephrosis. No suspicious renal mass. VISUALIZED BOWEL: Nondilated. PERITONEUM/RETROPERITONEUM: No ascites. LYMPH NODES: No abdominal lymphadenopathy. VESSELS: No abdominal aortic aneurysm. ABDOMINAL WALL: Within normal limits. MUSCULOSKELETAL: Degenerate changes of the visualized spine. Posterior spinal fusion of the lower lumbar spine. Procedure Note Randi Macedo MD - 04/05/2024 EXAM MRI QUANTITATIVE ANALYSIS OF TISSUE COMPOSITION (FAT,IRON,WATER CONTENT)WITH DIAGNOSTIC MRI; SINGLE ORGAN; MRI LIVER W WO CONTRAST-04/05/2024 6:12pm HISTORY Liver iron content estimation COMPARISON MRI abdomen 05/25/2018. TECHNIQUE Multiplanar, multisequential MR imaging of the abdomen was performed withand without intravenous contrast. Iron and fat quantification sequenceswere also performed. FINDINGS PROBLEM SPECIFIC FINDINGS: García acquisition values are reported from the automatically generatedROIs in the right liver. Based on R2* values of 36 s-1, liver iron concentration is estimated tocorrespond to approximately 1.2 mg/g using a linear conversion factor of0.032. <2 mg/g is normal. Fat percentage estimation ranges from 3 (García) to 2.6%(HISTO). ADDITIONAL FINDINGS: LIVER: Top-normal in size. Normal morphology. No suspicious mass. BILE DUCTS: No abnormal biliary ductal dilation. GALLBLADDER: Cholecystectomy. PANCREAS: Grossly normal. No main pancreatic duct dilation. SPLEEN: Within normal limits. ADRENAL GLANDS: Within normal limits. KIDNEYS/PROXIMAL URETERS: No hydronephrosis. No suspicious renal mass. VISUALIZED BOWEL: Nondilated. PERITONEUM/RETROPERITONEUM: No ascites. LYMPH NODES: No abdominal lymphadenopathy. VESSELS: No abdominal aortic aneurysm. ABDOMINAL WALL: Within normal limits. MUSCULOSKELETAL: Degenerate changes of the visualized spine. Posteriorspinal fusion of the lower lumbar spine. IMPRESSION IMPRESSION Estimated liver iron concentration is within normal limits, as above. Genna Can MD RAD MRI-MRA documented in this encounter Visit Diagnoses Diagnosis Hereditary hemochromatosis (HCC) Hereditary hemochromatosis documented in this encounter Administered Medications Inactive Administered Medications - up to 3 most recent administrations Medication Order MAR Action Action Date Dose Rate Site gadobutrol (Gadavist) inj 7.5 mL 7.5 mL (rounded from 7.45 mL = 0.1 mL/kg 74.5 kg), Intravenous, ONCE, On Mon04/05/24 at 1800, For 1 dose, Radiology Medication Routing (Non-IR) Given 04/05/2024 6:00 PM EDT 7.5 mL documented in this encounter Advance Directives * Full Code (Latest Code Status on File) Date Activated Date Inactivated Comments 11/13/2020 4:45 PM 11/14/2020 5:13 PM Question Answer Comments Discussion of Advance Directives occurred with: Not Discussed Care Teams Behavioral Health Director Relationship Specialty Start Date End Date Xiomara Sapp MD [address] [place] [address] [place] [phone] PCP - General Family Medicine 11/16/22 documented as of this encounter
--- OUTSIDE RECORDS SUMMARY | 2024-06-24 23:47 | External Medical Summary | Summary of Care ---
Author Name Unknown Organization [facility] Address [address] [place] [address] Phone [phone] Care Team Providers Care Chain Carrier Name Role Phone Xiomara Sapp MD Primary Care Prov ider Reason for Visit * Reason Onset Date Comments Appointment 04/05/2024 Encounter Details Date Type Department Care Team (Late st Contact Info) Description 04/05/2024 Telephone [facility] [place] [address] [place] [address] Hernan Beckham, COLBY [address] [place] [address] Appointment (//) Allergies Active Allergy Reactions Criticality Noted Date Comments Sulfa Antibiotics 10/16/2003 Unknown reaction Vancomycin Low 06/17/2022 Other reaction(s): red, itchy Other reaction(s): red, itchy documented as of this encounter (statuses as of 04/05/2024) Medications Medication Sig Dispensed Refills Start Date [...] as of this encounter (statuses as of 04/05/2024) Active Problems Problem Noted Date Diagnosed Date [...] 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 Increased risk for hereditary hemochromatosis. S/P hip [...] as of this encounter (statuses as of 04/05/2024) Resolved Problems Problem Noted Date Diagnosed Date [...] as of this encounter (statuses as of 04/05/2024) Immunizations Name Administration Dates Next Due COVID-19 [...] 18 years and over) Not on file 4 Are you (or your family) alesha [...] Telephone Encounter - Hernan Beckham OSA - 04/05/2024 8:47 AM EDT 04/05 Spoke to pt, would like a call back in Around documented in this encounter Plan of Treatment Upcoming Encounters Date Type Department Care Team (Late st Contact Info) Description 04/05/2024 5:30 PM EDT Hospital Encounter MRI, [place] [address] [place] [address] 04/10/2024 11:40 AM EDT Anticoagulation Pharmacy, [address] [place] [address] [place] [address] 04/15/2024 10:30 AM EDT Office Visit Hematology/Oncology [facility] 200 [facility] [place] [phone] Genna Can MD [address] [place] [phone] 06/03/2024 11:00 AM EST Office Visit Family Medicine [address] [place] [phone] Sheri Carpio CRNP [address] [place] [address] [place] [address] 06/06/2024 10:00 AM EST Office Visit Cardiology, [facility] 132 [facility] [place] [address] Iain Ward PA-C 132 [facility] [place] [address] 07/03/2024 8:40 AM EST Office Visit Dermatology [address] [place] [address] Maribel Cazares PA-C [address] [place] [address] [place] [address] 08/21/2024 11:15 AM EST Office Visit Urology, [facility] [address] [place] [address] Bear Craven MD [address] [place] [phone] Health Maintenance Due Date Last Done Comments [...] Directives occurred with: Not Discussed Care Teams Chain Carrier Relationship Specialty Start Date End Date Xiomara Sapp MD [address] [place] [address] [place] [phone] PCP - General Family Medicine 11/16/22 documented as of this encounter
--- OUTSIDE RECORDS SUMMARY | 2024-06-24 23:47 | External Medical Summary | Summary of Care ---
Author Name Unknown Organization [facility] Address [address] [place] [address] Phone [phone] Care Team Providers Care Media/Instructional Designer Name Role Phone Xiomara Sapp MD Primary Care Prov ider Reason for Referral * Precert (Within 10 days (routine)) - Authorized Specialty Diagnoses / Procedures Referred By Contac t Referred To Contact Radiology Diagnoses Hereditary hemochromatosis (HCC) Procedures MRI QUANTITATIVE ANALYSIS OF TISSUE COMPOSITION (FAT,IRON,WATER CONTENT) WITH DIAGNOSTIC MRI; SINGLE ORGAN Genna Can MD [address] [place] [phone] Referral ID Status Reason Start Date Expiration Date V isits Requested Visits Authorized [id number] Authorized 04/05/2024 999 999 Reason for Visit * Reason Onset Date Comments Advice 04/02/2024 MRI order Encounter Details Date Type Department Care Team (Late st Contact Info) Description 04/02/2024 Telephone Hematology/Oncology [facility] [address] [place] [address] Services, Scheduling [address] [place] [address] Advice (MRI order /) Allergies Active Allergy [...] vein thrombosis),History of pulmonary embolism,Anticoagul ation management encounter,long-term current use of anticoagulant therapy take 7.5mg [...] 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 Increased risk for hereditary hemochromatosis. S/P hip [...] No 11/29/2023 Does the household have a holy cross hospitallar source of income? (Household - for ages [...] encounter Miscellaneous Notes * Addendum Note - Mart Reddy RN - 04/05/2024 10:12 AM EDTAddended by: MART REDDY on: 04/05/2024 10:12 AM Modules accepted: Orders * Telephone Encounter - Mart Reddy RN - 04/05/2024 10:12 AM EDT Reviewed with Dr Can, placed MRI w/ iron quant order per request. * Telephone Encounter - Mart Reddy RN - 04/02/2024 12:40 PM EDT [...] Description 04/05/2024 5:30 PM EDT Hospital Encounter [facility], [place] [place] [address] 04/10/2024 11:40 AM EDT Anticoagulation Pharmacy, [address] [place] [address] [place] [address] 04/15/2024 10:30 AM EDT Office Visit Hematology/Oncology [facility] [place] [facility] [place] [phone] Genna Can [facility] [place] [address] 06/03/2024 11:00 AM EST Office Visit Family Medicine [address] [place] [phone] Sheri Carpio CRNP [address] [place] [address] [place] [address] 06/06/2024 10:00 AM EST Office Visit Cardiology, [facility] [address] [facility] [place] [address] Iain Ward PA-C 132 [facility] [place] [address] 07/03/2024 8:40 AM EST Office Visit Dermatology [address] [place] [address] Maribel Cazares PA-C [address] [place] [address] [place] [address] 08/21/2024 11:15 AM EST Office Visit Urology, [facility] [address] [facility] [place] [address] Bear Craven MD [address] [place] [address] Scheduled Orders Name Type Priority Associated Diagnoses Orde r Schedule MRI QUANTITATIVE ANALYSIS OF TISSUE COMPOSITION (FAT,IRON,WATER CONTENT) WITH DIAGNOSTIC MRI; SINGLE ORGAN Medical Imaging Routine Hereditary hemochromatosis (HCC) Expected: 04/05/2024, Expires: 05/06/2025 Health Maintenance Due Date Last Done Comments [...] Directives occurred with: Not Discussed Care Teams Media/Instructional Designer Relationship Specialty Start Date End Date Xiomara Sapp MD [address] [place] [address] [place] [phone] PCP - General Family Medicine 11/16/22 documented as of this encounter
--- OUTSIDE RECORDS SUMMARY | 2024-06-24 23:47 | External Medical Summary | Summary of Care ---
Author Name Unknown Organization [facility] Address [address] [place] [address] Phone [phone] Care Team Providers Care Manager Packaging Name Role Phone Xiomara Sapp MD Primary Care Prov ider Reason for Visit * Reason Comments Dosage Adjustment In Person (Anticoag Cl inic) Encounter Details Date Type Department Care Team (Latest Contact Info) Description 04/02/2024 9:40 AM EDT Anticoagulation Pharmacy, [address] [place] [address] [place] [address] Anticoagulation management encounter*; History of DVT (deep vein thrombosis); History of pulmonary embolism Allergies Active Allergy Reactions Criticality Noted Date Comments Sulfa Antibiotics 10/16/2003 Unknown reaction Vancomycin Low 06/17/2022 Other reaction(s): red, itchy Other reaction(s): red, itchy documented as of this encounter (statuses as of 04/02/2024) Medications Medication Sig Dispensed Refills Start Date [...] thrombosis),History of pulmonary embolism,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 Increased risk for hereditary hemochromatosis. S/P hip [...] as of this encounter (statuses as of 04/02/2024) Resolved Problems Problem Noted Date Diagnosed Date [...] as of this encounter (statuses as of 04/02/2024) Immunizations Name Administration Dates Next Due COVID-19 [...] encounter Progress Notes * Halima Rodriguez, [facility] - 04/02/2024 9:34 AM EDT Images from the original note were not included. Medication Therapy Disease Management - Anticoagulation Patient: Raghavendra Gramajo | : 1940 Subjective Contacts Contact Date/Time Type Contact Phone/Fax 03/26/2024 05:15 AM EDT Vendor (Outgoing) Raghavendra Gramajo [phone] 03/30/2024 05:08 AM EDT Vendor (Outgoing) Raghavendra Gramajo [phone] 04/01/2024 05:15 AM EDT Vendor (Outgoing) Raghavendra Gramajo [phone] Patient-Reported Symptoms: Patient Findings Negatives: Signs/symptoms of thrombosis, Signs/symptoms of bleeding, Change in health, Change in alcohol use, Change in activity, Upcoming invasive procedure, Missed doses, Extra doses, Change in medications, Change in diet/appetite, Bruising Objective Current Warfarin Dose As of 04/02/2024 Warfarin maintenance plan: 7.5 mg (5 mg x 1.5) every e, [place]; 5 mg (5 mg x 1) all other days INR Result As of 04/02/2024 INR goal: 2.0-3.0 INR used for dosin.7 (04/02/2024) Assessment & Plan Warfarin Plan As of 04/02/2024 Full warfarin instructions: 7.5 mg every Mon, Wed, Fri; 5 mg all other days Next INR check: 04/10/2024 Repeat PT/INR in 1 week(s) Weekly dose: increased Additional Dosing Information: I spent a total of 10-19 minutes (exact time 10 mins) on the date of service in preparation, delivery, and documentation of the care provided to Raghavendra Gramajo excluding any time spent in the performance of separately billed services or time spent by another provider/QHP. Halima Rodriguez RPh Clinical Pharmacist 04/02/2024, 9:34 AM documented in this encounter Plan of Treatment Upcoming Encounters Date Type Department Care Team (Late st Contact Info) Description 04/05/2024 5:30 PM EDT Appointment [facility], [address] [place] [address] 04/10/2024 11:40 AM EDT Anticoagulation Pharmacy, [address] [place] [address] [place] [address] 04/15/2024 10:30 AM EDT Office Visit Hematology/Oncology [facility] [place] [facility] [place] [phone] Genna Can MD [address] [place] [phone] 06/03/2024 11:00 AM EST Office Visit Family Medicine [address] [place] [phone] Sheri Carpio CRNP [address] [place] [address] [place] [address] 06/06/2024 10:00 AM EST Office Visit Cardiology, [facility] [address] [place] [address] Iain Ward PA-C [address] [facility] [place] [address] 07/03/2024 8:40 AM EST Office Visit Dermatology [address] [place] [address] Maribel Cazares PA-C [address] [place] [address] [place] [address] 08/21/2024 11:15 AM EST Office Visit [facility], [facility] [place] [address] Bear Craven MD 27 [place] [address] Health Maintenance Due Date Last Done Comments [...] Comments INR FINGERSTICK, POINT OF CARE STAT 04/02/2024 9:36 AM EDT Anticoagulation management encounter documented in this encounter Results * INR FINGERSTICK, POINT OF CARE (04/02/2024 9:36 AM EDT) Fingerstick INR 1.7 INR 9:41 AM EDT [facility] Blood 04/02/2024 9:36 AM EDT 04/02/2024 9:41 AM EDT Narrative [facility] - 04/02/2024 9:41 AM EDT Therapeutic ranges for non-operative patients: Prophylaxsis/treatment of DVT: (Range:2.0-3.0) Treatment of pulmonary embolism:(Range:2.0-3.0) Prevention of systemic embolism from: -tissue heart valves -acute myocardial infarction -valvular heart disease -atrial fibrillation (Range: 2.0-3.0) Mechanical prosthetic valves: (Range: 2.5-3.5) Halima Rodriguez [facility] POINT OF CARE TEST DOCKED DEVICE UNSOLICITED RESULTS [facility] [address] [place] [address] [place] [address] documented in this encounter Visit Diagnoses Diagnosis [...] occurred with: Not Discussed Care Teams Manager Packaging Relationship Specialty Start Date End Date Xiomara Sapp MD [address] [place] [address] [place] [address] PCP - General Family Medicine 11/16/22 documented as of this encounter"
--- OUTSIDE RECORDS SUMMARY | 2024-06-24 23:47 | External Medical Summary | Summary of Care ---
Author Name Unknown Organization [facility] Address [address] [place] [address] Phone [phone] Care Team Providers Care Cigarette Machine Filler Name Role Phone Xiomara Sapp MD Primary Care Prov ider Reason for Visit * Reason Onset Date Comments Advice 04/02/2024 MRI order Encounter Details Date Type Department Care Team (Late st Contact Info) Description 04/02/2024 Telephone Hematology/Oncology [facility] [place] [address] [place] [address] Services, Scheduling [address] [place] [address] Advice (MRI order /) Allergies Active Allergy [...] vein thrombosis),History of pulmonary embolism,Anticoagul ation management encounter,FPC current use of anticoagulant therapy take 7.5mg [...] 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 Increased risk for hereditary hemochromatosis. S/P [...] mRNA, LNP-s, No Pre serve, 2-Dose Series ([employer]) 10/22/2020,10/01/2020 COVID-19, LNP-s, No Preserve , Cordell-sucrose, [...] 04/05/2024 5:30 PM EDT Hospital Encounter [facility] [place] [facility] [address] 04/10/2024 11:40 AM EDT Anticoagulation Pharmacy, [address] [place] [address] [place] [address] 04/15/2024 10:30 AM EDT Office Visit Hematology/Oncology [facility] 200 [facility] [place] [phone] Genna Can MD 400 [facility] [place] [phone] 06/03/2024 11:00 AM EST Office Visit Family Medicine [address] [place] [phone] Sheri Carpio[address] [place] [address] 06/06/2024 10:00 AM EST Office Visit Cardiology, [facility] [address] [place] [address] Iain Ward PA-C [address] [place] [address] 07/03/2024 8:40 AM EST Office Visit Dermatology [address] [place] [address] Maribel Cazares PA-C [address] [place] [address] [place] [address] 08/21/2024 11:15 AM EST Office Visit Urology, [facility] [address] [place] [address] Bear Craven MD 27 [place] [address] [...] Directives occurred with: Not Discussed Care Teams Cigarette Machine Filler Relationship Specialty Start Date End Date Xiomara Sapp MD [address] [place] [address] [place] [address] PCP - General Family Medicine 11/16/22 documented as of this encounter
--- OUTSIDE RECORDS SUMMARY | 2024-06-24 23:47 | External Medical Summary | Summary of Care ---
Author Name Unknown Organization [facility] Address [address] [place] [address] Phone [phone] Care Team Providers Care House Piping Inspector Name Role Phone Xiomara Sapp MD Primary Care Prov ider Reason for Visit * Reason Onset Date Comments Medication Refill 01/19/2024 Encounter Details Date Type Department Care Team (Late st Contact Info) Description 01/19/2024 Refill Cardiology, [facility] [address] [place] [address] Iain Ward, PAJosueC [address] [place] [address] Allergies Active Allergy Reactions Criticality Noted Date Comments Sulfa Antibiotics 10/16/2003 Unknown reaction Vancomycin Low 06/17/2022 Other reaction(s): red, itchy Other reaction(s): red, itchy documented as of this encounter (statuses as of 03/27/2024) Medications Medication Sig Dispensed Refills Start Date [...] thrombosis),Histor y of pulmonary embolism,Anticoagu lation management encounter,buttermaker continuous churn current use of anticoagulant therapy take 7.5mg [...] as of this encounter (statuses as of 03/27/2024) Active Problems Problem Noted Date Diagnosed Date [...] 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 Increased risk for hereditary hemochromatosis. S/P hip [...] as of this encounter (statuses as of 03/27/2024) Resolved Problems Problem Noted Date Diagnosed Date [...] as of this encounter (statuses as of 03/27/2024) Immunizations Name Administration Dates Next Due COVID-19 mRNA, LNP-s, No Pre serve, 2-Dose Series ([employer]) 10/22/2020,10/01/2020 COVID-19, LNP-s, No Preserve , Cordell-sucrose, [...] 04/01/2024 10:30 AM EDT Nurse Only Gastroenterology, [facility] [place] [phone] Nurse Herb [address] [place] [address] 04/02/2024 9:40 AM EDT Anticoagulation Pharmacy, [address] [place] [address] [place] [address] 04/05/2024 5:30 PM EDT Appointment [facility], [place] [address] [facility] [place] [address] 04/15/2024 10:30 AM EDT Office Visit Hematology/Oncology [facility] [place] [facility] [place] [phone] Genna Can [facility] [place] [address] 06/03/2024 11:00 AM EST Office Visit Family Medicine [address] [place] [phone] [address]ri Carpio [address] [place] [address] 06/06/2024 10:00 AM EST Office Visit Cardiology, [facility] [place] [address] Iain Ward PA-C 132 [facility] [place] [address] 07/03/2024 8:40 AM EST Office Visit Dermatology [address] [place] [address] Maribel Cazares PA-C [address] [place] [address] [place] [address] 08/21/2024 11:15 AM EST Office Visit Urology, [facility] [address] [place] [address] Bear Craven MD [address] [place] [address] Health Maintenance Due Date Last Done Comments [...] Directives occurred with: Not Discussed Care Teams House Piping Inspector Relationship Specialty Start Date End Date Xiomara Sapp MD [address] [place] [address] [place] [address] PCP - General Family Medicine 11/16/22 documented as of this encounter
--- OUTSIDE RECORDS SUMMARY | 2024-06-24 23:47 | External Medical Summary | Summary of Care ---
Author Name Unknown Organization [facility] Address [address] [place] [address] Phone [phone] Care Team Providers Care Outcome Analyst Name Role Phone Xiomara Sapp MD Primary Care Prov ider Reason for Visit * Reason Comments Follow Up Encounter Details Date Type Department Care Team (Latest Contact Info) Description 03/27/2024 10:45 AM EDT Procedure Only Urology, [facility] [address] [facility] [place] [address] Bear Craven MD 27 [place] [address] BPH with urinary obstruction*; Detrusor areflexia; Dysuria; Acute cystitis without hematuria [...] thrombosis),Histor y of pulmonary embolism,Anticoagu lation management encounter,longterm current use of anticoagulant therapy [...] mouth in the morning. 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 Increased risk for hereditary hemochromatosis. S/P hip [...] mRNA, LNP-s, No Pre serve, 2-Dose Series (GroupCard) 10/22/2020,10/01/2020 COVID-19, LNP-s, No Preserve , Cordell-sucrose, Ages 12+ (GroupCard) 08/03/2021 Pneumococcal Conjugate Vacc, 13 Valent (Prevnar) [...] as of this encounter Progress Notes * Bear Craven MD - 03/27/2024 10:07 AM EDT [id number] PCP: XIOMARA SAPP[address] [place] [address] [phone] Raghavendra Gramajo is a 83 year old male, who presents for cystoscopy for evaluation of his persistent voiding difficulties. King catheter was placed due to difficulties with urinary tract infection. Patient has completed an antibiotic course for positive urine culture. Inpatient consultation is reviewed. Catheter is currently in place. Patient is ready to resume his CIC. Some questions regarding catheter function are reviewed. BPH: Patient is being seen for BPH today. He has had the following symptoms: slow stream, inability to urinate, and need for catheter placement. Severity is high. He has tried tamsulosin and finasteride. He has previously had TURP done October 2020. Cystoscopy done July 2023, minimal regrowth at TUR fossa. Problem has been present for years. Problem is getting better. King placed January 2024 for retention via ER. UC&S Feb 2024: Culture Growth >100,000 colonies/mL Escherichia coli Abnormal <10,000 colonies/ml mixed normal hetal Resulting Agency: Susceptibility Escherichia coli [employer] Ampicillin Susceptible Cefazolin Susceptible Cefepime Susceptible Ceftriaxone Susceptible Ciprofloxacin Susceptible 1 Gentamicin Susceptible Nitrofurantoin Susceptible Piperacillin Tazobactam Susceptible Trimeth/Sulfamethoxazole Susceptible PSA Results: Lab Results Component Value Date/Time PSA - [facility] 0.50 02/21/2024 10:50 AM PSA - [facility] 0.90 10/22/2021 07:48 AM PSA - [facility] 0.91 09/26/2019 08:17 AM PSA - [facility] 0.69 05/28/2010 08:19 AM PSA - [facility] 0.60 06/03/2009 08:51 AM PSA SCREENING 0.67 01/22/2014 09:09 AM PSA SCREENING 0.68 10/16/2012 12:10 PM PSA SCREENING 0.75 10/04/2011 08:30 AM Creatinine Results: Lab Results Component Value Date/Time CREATININE - [facility] 1.0 02/21/2024 10:50 AM CREATININE - [facility] 1.0 05/29/2023 08:01 AM CREATININE - [facility] 1.1 04/27/2023 09:53 AM CREATININE - [facility] 1.0 02/28/2020 11:08 AM CREATININE - [facility] 1.0 05/31/2019 09:38 AM CREATININE - [facility] 1.0 03/01/2019 10:05 AM CREATININE, RANDOM URINE - EL[facility] 55 04/27/2022 12:25 PM Current Outpatient Medications Medication Sig Dispense Refill [...] accumulation or weight gain 30 Tablet 3 Finasteride 5 MG Oral Tablet (Proscar) Take 1 Tablet by mouth in the morning. 90 Tablet 3 Ezetimibe 10 MG Oral Tablet [...] meal of the day. 90 Capsule 3 Warfarin Sodium 5 MG Oral Tablet (Jantoven) take 7.5mg (1.5 tablets) on Tuesdays, and saturdays; take 5mg (1 tablet) all other days or as directed by anticoagulation clinic. 100 Tablet 1 Azelastine HCl 0.1 % Nasal Solution (Astelin) administer into each nostril 2 sprays 2 times a day as needed for rhinitis. 30 mL 1 Digoxin 125 MCG Oral Tablet (Lanoxin) TAKE ONE TABLET BY MOUTH EVERY DAY 90 Tablet 3 Metoprolol Tartrate 25 MG Oral Tablet (Lopressor) TAKE 1/2 TABLET BY MOUTH EVERY 12 HOURS 90 Tablet1 Fluticasone Propionate 50 MCG/ACT Nasal Suspension (Flonase) use 2 sprays in each nostril daily 48 g 1 Tamsulosin HCl 0.4 MG Oral Capsule (Flomax) Take 1 Capsule by mouth in the morning. 30 Capsule 6 Cefdinir 300 MG Oral Capsule (Omnicef) Take 1 Capsule by mouth in the morning and 1 Capsule before bedtime. 20 Capsule 0 No current facility-administered medications for this visit. Review of patient's allergies indicates: Allergen Reactions Sulfa Antibiotics Unknown reaction Vancomycin Other reaction(s): red, itchy Other reaction(s): red, itchy Social History: Social History Tobacco Use Smoking status: Never Smokeless tobacco: Never Substance Use Topics Alcohol use: No Vaping/E-Cigarette Use Vaping/E-Cigarette Use Never User Passive Exposure No Counseling Given? No Vaping/E-Cigarette Substances Nicotine No Other No Flavoring No THC No Cannabidiol (CBD) No Vaping/E-Cigarette Devices Disposable No Pre-filled or Refillable Cartridge No Refillable Tank No Pre-filled Pod No Past Surgical History: Procedure Laterality Date COLONOSCOPY 2010; 08/2011 [facility]--repeated 2011--polyps (tubulovillous) COLONOSCOPY, DIAGNOSTIC (RECTUM) 08/25/2016 adenomatous & hyperplastic polyps, diverticulosis, repeat 5 yrs/[facility] COLONOSCOPY, DIAGNOSTIC (RECTUM) 01/27/2022 diverticulosis / [facility] CT CHEST W CONTRAST 05/23/2012 PE in left lingular pulmonary artery CT HEAD/BRAIN 05/23/2012 no acute findings ECHO (2-D COMPLETE) 05/24/2012 normal EGD, FLEXIBLE, DIAGNOSTIC 10/02/2018 reflux esophagitis/[facility] KNEE ARTHROSCOPY/ARTHROPLASTY 1960 left knee LAPAROSCOPY; CHOLECYSTECTOMY 10/03/2003 [facility] Dr. Wasserman LUMBAR / SACRAL EPIDURAL, SINGLE LEVEL Right 12/20/2016 Dr Mata, L3-4 on right. MRI L SPINE WO CONTRAST 12/18/2016 multilevel degenerative and postoperative changes OTHER (INFORMATION) 1973/1985/1988/1992/1997 back surgeries x 5 REMOVAL OF NOSE POLYP(S), SIMPLE REMOVAL OF PROSTATE (TURP) N/A 11/13/2020 TRANSURETHRAL RESECTION PROSTATE ELECTROSURGICAL performed by Alessio Santamaria MD at OR [facility] [place] REMOVE LUMBAR SPINE LAMINA, 3+ SEGS 01/26/2017 L2-4 lumbar laminectomy; Dr. Blake TOTAL HIP REPLACEMENT & PROSTHESIS Right 08/26/[address] [facility] DUPLEX CAROTID BILAT 05/23/2012 no stenosis Past Medical History: Diagnosis Date Acute cholecystitis 10/18/2003 Aortic root dilation (HCC) 08/2014 Back disorder Cystitis 01/22/2021 >100,000 coag neg staph sensitive to nitrofurantoin Dyslipidemia, goal LDL below 130 Pancreatitis 2004 gallstones Paroxysmal SVT (supraventricular tachycardia) (HCC) 2004 Pulmonary embolus ([facility]) 05/23/2012 Right lumbar radiculitis 12/20/2016 L3-4 on right S/P hip replacement, right 08/26/2017 Philippe Patient Active Problem List Diagnosis ADVANCE DIRECTIVE [...] (primary) hypertension Detrusor areflexia Dysuria Urinary retention Constitutional: (-) fever and (-) chills ENT: (+) hearing loss Male : see HPI Musculoskeletal: (+) joint pain Neurology: (+) loss of balance Psychiatry: (-) negative: no depression or anxiety Physical Exam Nursing note reviewed. Constitutional: General: He is not in acute distress. Appearance: He is not toxic-appearing. Comments: Using cane HENT: Head: Normocephalic. Right Ear: External ear normal. Left Ear: External ear normal. Nose: Nose normal. Mouth/Throat: Mouth: Mucous membranes are moist. Eyes: Extraocular Movements: Extraocular movements intact. Cardiovascular: Pulses: Normal pulses. Pulmonary: Effort: Pulmonary effort is normal. No respiratory distress. Abdominal: General: There is no distension. Palpations: Abdomen is soft. Skin: Coloration: Skin is not pale. Neurological: Motor: Weakness present. Gait: Gait abnormal. Psychiatric: Behavior: Behavior normal. Thought Content: Thought content normal. 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 Patient notes occasions of spontaneous voiding between catheterizations. Will resume CIC. Patient is reinstructed on catheter use and orientation for coude catheters. Will see in 4 months to check onprogress. Hopefully, we can avoid chronic indwelling King catheter suprapubic tube placement if the patient returns to baseline regarding his catheterization and bladder emptying. Above content is personally reviewed. Patient vocalizes good understanding of the treatment plan. Refill of finasteride provided. Bear Craven MD 10:08 AM 03/27/2024 documented in this encounter Nursing Notes * Alisa Bodwen LPN - 03/27/2024 10:17 AM EDT Patient in office for follow up, possible cystoscopy. King in place, finished antibiotics two daysago. documented in this encounter Plan of Treatment Upcoming Encounters Date Type Department Care Team (Late st Contact Info) Description 04/01/2024 10:30 AM EDT Nurse Only Gastroenterology, [facility] Denise [address] [phone] Nurse Herb [facility] [address] [address] 04/02/2024 9:40 AM EDT Anticoagulation Pharmacy, [address] [place] [address] [place] [address] 04/05/2024 5:30 PM EDT Appointment [facility], [address] [place] [address] 04/15/2024 10:30 AM EDT Office Visit Hematology/Oncology [facility] Thompson [address] [place] [address] [place] [phone] Genna Can MD [address] [place] [phone] 06/03/2024 11:00 AM EST Office Visit Family Medicine [address] [place] [phone] Sheri Carpio CRNP [address] [place] [address] [place] [address] 06/06/2024 10:00 AM EST Office Visit Cardiology, [facility] 132 [facility] [place] [address] Iain Ward PA-C 132 [facility] [place] [address] 07/03/2024 8:40 AM EST Office Visit Dermatology [address] [place] [address] Maribel Cazares PA-C [address] [place] [address] [place] [address] 08/21/2024 11:15 AM EST Office Visit Urology, [facility] [place] [address] Bear Craven MD 27 [place] [address] Health Maintenance Due Date Last Done Comments [...] Directives occurred with: Not Discussed Care Teams Outcome Analyst Relationship Specialty Start Date End Date Xiomara Sapp MD [address] [place] [address] [place] [address] PCP - General Family Medicine 11/16/22 documented as of this encounter
--- OUTSIDE RECORDS SUMMARY | 2024-06-24 23:48 | External Medical Summary ---
Author Name Unknown Address Unknown Organization : Laboratory Report Ordering Provider Test Date Status ENZO COTO 03/19/2024 09:22:58 Final Therapeutic ranges for non-o perative patients:
Prophylaxsis/treatment of DVT: (Range:2.0-3.0)
Treatment of pulmonary embolism:(Range:2.0-3.0)
Prevention of systemic embolism from:
-tissue heart valves
-acute myocardial infarction
-valvular heart disease
-atrial fibrillation
(Range: 2.0-3.0)
Mechanical prosthetic valves: (Range: 2.5-3.5) Observation Date Value Abnormality Reference (Units ) Status INR in Capillary blood by Coagulation assay 03/19/2024 09:22:58 1.7 (INR) Final Performing Location
--- OUTSIDE RECORDS SUMMARY | 2024-06-24 23:48 | External Medical Summary | Summary of Care ---
Author Name Unknown Organization [facility] Address [address] [place] [address] Phone [phone] Care Team Providers Care Shotblast Equipment Operator Name Role Phone Xiomara Sapp MD Primary Care Prov ider Reason for Visit * Reason Onset Date Comments [facility]: Maintenance 03/21/2024 Encounter Details Date Type Department Care Team (Late st Contact Info) Description 03/21/2024 Telephone [facility] [place] [address] [place] [address] Shae Mueller, [facility] [address] [facility] [address] [facility]: Maintenance Allergies Active Allergy Reactions Criticality Noted Date Comments Sulfa Antibiotics 10/16/2003 Unknown reaction Vancomycin Low 06/17/2022 Other reaction(s): red, itchy Other reaction(s): red, itchy documented as of this encounter (statuses as of 03/21/2024) Medications Medication Sig Dispensed Refills Start Date [...] weight gain 30 Tablet 3 11/16/2022 Active Finasteride 5 MG Oral Tablet (Proscar) Take 1 Tablet by mouth in the morning. 90 Tablet 3 03/28/2023 Active Ezetimibe 10 MG Oral Tablet (Zetia) [...] Capsule before bedtime. 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 Increased risk for hereditary hemochromatosis. S/P hip [...] as of this encounter (statuses as of 03/21/2024) Resolved Problems Problem Noted Date Diagnosed Date [...] as of this encounter (statuses as of 03/21/2024) Immunizations Name Administration Dates Next Due COVID-19 mRNA, LNP-s, No Pre serve, 2-Dose Series (Pfizer) 10/22/2020,10/01/2020 COVID-19, LNP-s, No Preserve , Cordell-sucrose, Ages 12+ (Pfizer) 08/03/2021 Pneumococcal Conjugate Vacc, 13 Valent (Prevnar) 01/27/2015 Pneumococcal Polysaccharide PPV23 (Pneumovax) 08/17/2012 Season Influenza, Quad, PF, Adjuvanted, 65+ Yrs, IM (FLUAD) 04/07/2020 Seasonal Influenza, PF, 6 M & above, IM , (FluLaval or Fluzone) 03/15/2019,03/02/2018,03/16/2017 Seasonal Influenza, Quadriva lent Hd (Fluzone Hd) 03/10/2023,03/28/2022,03/12/2021 03/12/2022 Seasonal Influenza, Quadriva lent, No Preserve, IM 04/04/2016,06/09/2015 Seasonal Influenza, Trivalen t, (IIV3), with Preserv, (Fluzone) 03/25/2014,04/02/2013,06/11/2012 TDAP (age 10 and older)(Boostrix) 05/12/2017 Varicella [...] encounter Miscellaneous Notes * Telephone Encounter - Shae Mueller LPN - 03/21/2024 8:44 AM EDT Raghavendra Gramajo was referred as a potential candidate for enrollment for [facility]. A review of this chart was completed and: Raghavendra meets criteria for [facility]. Jump to Initiation Referring care team was notified via : Epic communication documented in this encounter Plan of Treatment Upcoming Encounters Date Type Department Care Team (Late st Contact Info) Description 03/27/2024 10:45 AM EDT Procedure Only Urology, [facility] [address] [place] [address] Bear Craven MD [address] [place] [address] 04/01/2024 10:30 AM EDT Nurse Only Gastroenterology, [address], [place] [address] [place] [phone] Herb [address] [place] [address] 04/02/2024 9:40 AM EDT Anticoagulation Pharmacy, [address] [place] [address] [place] [address] 04/05/2024 5:30 PM EDT Appointment [facility], [place] [facility] [address] 04/15/2024 10:30 AM EDT Office Visit Hematology/Oncology [facility] [address] [facility] [place] [phone] Genna Can MD [address] [facility] [place] [phone] 06/03/2024 11:00 AM EST Office Visit Family Medicine [address] [place] [phone] Sheri Carpio [address] [place] [address] 06/06/2024 10:00 AM EST Office Visit Cardiology, [facility] [address] [place] [address] Iain Ward PA-C [address] [place] [address] 07/03/2024 8:40 AM EST Office Visit Dermatology [address] [place] [address] Maribel Cazares PA-C [address] [place] [address] [place] [address] Health Maintenance Due Date Last Done Comments [...] Directives occurred with: Not Discussed Care Teams Shotblast Equipment Operator Relationship Specialty Start Date End Date Xiomara Sapp MD [address] [place] [address] [place] [address] PCP - General Family Medicine 11/16/22 documented as of this encounter
--- OUTSIDE RECORDS SUMMARY | 2024-06-24 23:48 | External Medical Summary | Summary of Care ---
Author Name Unknown Organization [facility] Address [address] [place] [address] Phone [phone] Care Team Providers Care Moto Mix Operator Name Role Phone Xiomara Sapp MD Primary Care Prov ider Reason for Visit * Reason Onset Date Comments Appointment 03/22/2024 Encounter Details Date Type Department Care Team (Late st Contact Info) Description 03/22/2024 Telephone [facility] [place] [address] [place] [address] Hernan Beckham, [place] [address] [place] [address] Appointment (///) Allergies Active Allergy Reactions Criticality Noted Date Comments Sulfa Antibiotics 10/16/2003 Unknown reaction Vancomycin Low 06/17/2022 Other reaction(s): red, itchy Other reaction(s): red, itchy documented as of this encounter (statuses as of 03/22/2024) Medications Medication Sig Dispensed Refills Start Date [...] as of this encounter (statuses as of 03/22/2024) Active Problems Problem Noted Date Diagnosed Date [...] 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 Increased risk for hereditary hemochromatosis. S/P hip [...] as of this encounter (statuses as of 03/22/2024) Resolved Problems Problem Noted Date Diagnosed Date [...] as of this encounter (statuses as of 03/22/2024) Immunizations Name Administration Dates Next Due COVID-19 mRNA, LNP-s, No Pre serve, 2-Dose Series ([employer]) 10/22/2020,10/01/2020 COVID-19, LNP-s, No Preserve , Cordell-sucrose, [...] Telephone Encounter - Hernan Beckham OSA - 03/22/2024 8:58 AM EDT 03/22 Spoke to pt, would like a call back in Nov. Several sm procedures next month, he said his body is being well looked at. documented in this encounter Plan of Treatment Upcoming Encounters Date Type Department Care Team (Late st Contact Info) Description 03/27/2024 10:45 AM EDT Procedure Only [facility]rology, [facility] [place] [address] Bear Craven MD [address] [place] [address] 04/01/2024 10:30 AM EDT Nurse Only Gastroenterology, [address], [place] [address] [place] [phone] [place], Nurse Gastro [address] [place] [address] 04/02/2024 9:40 AM EDT Anticoagulation Pharmacy, [address] [place] [address] [place] [address] 04/05/2024 5:30 PM EDT Appointment [facility], [address] [address] 04/15/2024 10:30 AM EDT Office Visit Hematology/Oncology [facility] [address] [facility] [phone] Genna Can MD 400 [facility] [place] [phone] 06/03/2024 11:00 AM EST Office Visit Family Medicine [address] [place] [phone] Sheri Carpio [address] [place] [address] 06/06/2024 10:00 AM EST Office Visit Cardiology, [facility] [place] [address] Iain Ward PA-C [address] [place] [address] 07/03/2024 8:40 AM EST Office Visit Dermatology [address] [place] [address] Maribel Cazares PA-C [address] [place] [address] [place] [address] Health Maintenance Due Date Last Done Comments [...] Directives occurred with: Not Discussed Care Teams Moto Mix Operator Relationship Specialty Start Date End Date Xiomara Sapp MD [address] [place] [address] [place] [address] PCP - General Family Medicine 11/16/22 documented as of this encounter
--- OUTSIDE RECORDS SUMMARY | 2024-06-24 23:48 | External Medical Summary | Summary of Care ---
Author Name Unknown Organization [facility] Address [address] [place] [address] Phone [phone] Care Team Providers Care Patrol Judge Name Role Phone Ximoara Sapp MD Primary Care Prov ider Encounter Details Date Type Department Care Team (Late st Contact Info) Description 03/15/2024 10:30 AM EDT Nurse Only Urology Herb [place] [address] [place] [address] Nurse Herb Urology [address] [place] [address] Allergies Active Allergy Reactions Criticality Noted Date Comments Sulfa Antibiotics 10/16/2003 Unknown reaction Vancomycin Low 06/17/2022 Other reaction(s): red, itchy Other reaction(s): red, itchy documented as of this encounter (statuses as of 03/15/2024) Medications Medication Sig Dispensed Refills Start Date [...] vein thrombosis),History of pulmonary embolism,Anticoagul ation management encounter,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 Increased risk for hereditary hemochromatosis. S/P hip [...] as of this encounter (statuses as of 03/15/2024) Resolved Problems Problem Noted Date Diagnosed Date [...] as of this encounter (statuses as of 03/15/2024) Immunizations Name Administration Dates Next Due COVID-19 mRNA, LNP-s, No Pre serve, 2-Dose Series ([employer]) 10/22/2020,10/01/2020 COVID-19, LNP-s, No Preserve , Cordell-sucrose, [...] No 11/13/2020 documented as of this encounter Nursing Notes * Johanne Calvo LPN - 03/15/2024 11:08 AM EDT Patient presents for indwelling catheter placement. Patient prepped with betadine and # 16 silicone christian catheter [id number] balloon inserted without difficulty and connected to leg bag for return of 400 ml yellow urine. Patient tolerated the procedure. Bed bag given for night time use. To return in 1 month for catheter change. documented in this encounter Plan of Treatment Upcoming Encounters Date Type Department Care Team (Ramon lundberg Contact Info) Description 03/18/2024 10:40 AM EDT Office Visit Dermatology [address] [place] [address] Maribel Cazares PA-C [address] [place] [address] [place] [address] 03/19/2024 9:20 AM EDT Anticoagulation Pharmacy, [address] [place] [address] [place] [address] 03/27/2024 10:45 AM EDT Procedure Only Urology, [facility] [address] [facility] [place] [address] Bear Craven MD 27 [facility] [place] [address] 04/01/2024 10:30 AM EDT Nurse Only Gastroenterology, [facility] [place] [phone] Herb, Gastro [facility] [address] [place] [address] [place] [address] 04/05/2024 5:30 PM EDT Appointment MRI, [address] [address] 04/15/2024 10:30 AM EDT Office Visit Hematology/Oncology [facility] [place] 200 [facility] [place] [phone] Genna Can MD [address] [facility] [place] [phone] 06/03/2024 11:00 AM EST Office Visit Family Medicine [address] [place] [phone] Sheri Carpio, [address] [place] [address] 06/06/2024 10:00 AM EST Office Visit Cardiology, [facility] [address] [place] [address] Iain Ward PA-C [address] [place] [address] Health Maintenance Due Date Last Done Comments [...] Directives occurred with: Not Discussed Care Teams Patrol Judge Relationship Specialty Start Date End Date Xiomara Sapp MD [address] [place] [address] [place] [address] PCP - General Family Medicine 11/16/22 documented as of this encounter
--- OUTSIDE RECORDS SUMMARY | 2024-06-24 23:48 | External Medical Summary | Summary of Care ---
Author Name Unknown Organization [facility] Address [address] [place] [address] Phone [phone] Care Team Providers Care Rn Ambulatory Name Role Phone Xiomara Sapp MD Primary Care Prov ider Reason for Visit * Reason Onset Date Comments Medication Refill 03/01/2024 Lmtcb 03/14 Med Request 03/01/2024 Encounter Details Date Type Department Care Team (Late st Contact Info) Description 03/01/2024 Telephone Urology, [facility] 132 [facility] [place] [address] Bear Craven MD [address] [place] [address] Medication Refill (Lmtcb 03/14); Med Request Allergies Active Allergy Reactions Criticality Noted Date Comments Sulfa Antibiotics 10/16/2003 Unknown reaction Vancomycin Low 06/17/2022 Other reaction(s): red, itchy Other reaction(s): red, itchy documented as of this encounter (statuses as of 03/14/2024) Medications Medication Sig Dispensed Refills Start Date [...] weight gain 30 Tablet 3 3 Active Finasteride 5 MG Oral Tablet (Proscar) Take 1 Tablet by mouth in the morning. 90 Tablet 3 3 Active Ezetimibe 10 MG [...] thrombosis),Histor y of pulmonary embolism,Anticoagu lation management encounter,halfway current use of anticoagulant therapy [...] Capsule before bedtime. 20 Capsule 4 Active Tamsulosin HCl 0.4 MG Oral Capsule (Flomax) Take 1 Capsule by mouth in the morning. 30 Capsule 6 4 03/01/20 24 Discontinu ed(Refill) Nitrofurantoin Monohyd Macro 100 MG Oral Capsule (Macrobid) Take 1 Capsule by mouth in the morning and 1 Capsule before bedtime. Do all this for 7 days. With food until gone. 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 Increased risk for hereditary hemochromatosis. S/P hip [...] as of this encounter (statuses as of 03/14/2024) Resolved Problems Problem Noted Date Diagnosed Date [...] as of this encounter (statuses as of 03/14/2024) Immunizations Name Administration Dates Next Due COVID-19 [...] Does the household have a [facility] source of income? (Household - for [...] Telephone Encounter - Alisa Bowden LPN - 03/14/2024 8:36 AM EDT lmtcb * Addendum Note - Bear Craven MD - 03/13/2024 3:08 PM EDTAddended by: BEAR CRAVEN on: 03/13/2024 03:08 PM Modules accepted: Orders * Telephone Encounter - Bear Craven MD - 03/13/2024 3:06 PM EDT Rx for Cefdnir sent to pharmacy for 10 day course. Would have patient come into office for christian placement for first 5 days of therapy, then remove christian and resume CIC for last 5 days. Would ensure appropriate CIC technique and use of new catheters. Thx, HM * Telephone Encounter - Alisa Bowden LPN - 03/13/2024 1:[address] Craven Spoke with patient. States his urine is "like nothing you've ever seen before". States it is dark yellow and thick. Culture done by PCP 03/01/24, positive for infection. Patient finished course of nitrofurantoin about 5 days ago. States symptoms resolved with abx but returned shortly after. Denies fevers or chills. Please advise, pt requesting course of cipro. Uses Nel Gaspar. Thank you Kristen * Telephone Encounter - Ania Pastor OSA - 03/13/2024 9:55 AM EDT Pt. Calling to ask if Dr. Craven can call in an antibiotic for him for UTI he got from using self cath. Pt was on a antibiotic from his PCP which he completed, Pt. Now has symptoms again. Please callPt. To advise. * Telephone Encounter - Chasidy Carpenter formerly [facility] - 03/01/2024 11:11 AM EDT Expand All Collapse All Please resend Rx to [facility] [id number] Confirmed pharmacy did not receive original prescription. Patient states he is completely out of medication. Encounter dept corrected and will resend Thank you, Chasidy Carpenter formerly [facility] Clinical Pharmacist Centralized Clinical Pharmacy Services (CCPS) 03/01/24 11:12 AM [phone] documented in this encounter Plan of Treatment Upcoming Encounters Date Type Department Care Team (Late st Contact Info) Description 03/18/2024 10:40 AM EDT Office Visit Dermatology [address] [place] [address] Maribel Cazares PA-C [address] [place] [address] [place] [address] 03/19/2024 9:20 AM EDT Anticoagulation Pharmacy, [address] [place] [address] [place] [address] 03/27/2024 10:45 AM EDT Procedure Only Urology, [facility] 132 [facility] [place] [address] Bear Craven MD 27 [place] [address] 04/01/2024 10:30 AM EDT Nurse Only Gastroenterology, [address], [place] [address] [place] [phone] Herb Nurse Gastro [address] [place] [address] 04/05/2024 5:30 PM EDT Appointment MRI, [place] 100 [facility] [place] [address] 04/15/2024 10:30 AM EDT Office Visit Hematology/Oncology [facility] 200 [facility] [place] [phone] Genna Can MD 400 [facility] [place] [phone] 06/03/2024 11:00 AM EST Office Visit Family Medicine [address] [phone] Sheri Carpio [address] [place] [address] 06/06/2024 10:00 AM EST Office Visit [facility]iology, [facility] [place] [address] Iain Ward PA-C [address] [place] [address] Health Maintenance Due Date Last Done Comments [...] and other lower urinary tract symptoms (LUTS) Acute cystitis without hematuria Acute cystitis documented in this encounter Advance Directives * Full Code (Latest Code Status on File) Date Activated Date Inactivated Comments 11/13/2020 4:45 PM 11/14/2020 5:13 PM Question Answer Comments Discussion of Advance Directives occurred with: Not Discussed Care Teams Rn Ambulatory Relationship Specialty Start Date End Date Xiomara Sapp MD [address] [place] [address] [place] [address] PCP - General Family Medicine 11/16/22 documented as of this encounter
--- OUTSIDE RECORDS SUMMARY | 2024-06-24 23:48 | External Medical Summary | Summary of Care ---
Author Name Unknown Organization [facility] Address [address] [place] [address] Phone [phone] Care Team Providers Care Arrt Technologist Name Role Phone Xiomara Sapp MD Primary Care Prov ider Reason for Visit * Reason Onset Date Comments Medication Refill 03/01/2024 Med Request 03/01/2024 Encounter Details Date Type Department Care Team (Late st Contact Info) Description 03/01/2024 Telephone Urology, [facility] 132 [facility] [place] [address] Bear Craven MD 27 [place] [address] Medication Refill; Med Request Allergies Active Allergy Reactions Criticality Noted Date Comments Sulfa Antibiotics 10/16/2003 Unknown reaction Vancomycin Low 06/17/2022 Other reaction(s): red, itchy Other reaction(s): red, itchy documented as of this encounter (statuses as of 03/13/2024) Medications Medication Sig Dispensed Refills Start Date [...] thrombosis),Histor y of pulmonary embolism,Anticoagu lation management encounter,[facility] current use of anticoagulant therapy take 7.5mg [...] as of this encounter (statuses as of 03/13/2024) Active Problems Problem Noted Date Diagnosed Date [...] 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 Increased risk for hereditary hemochromatosis. S/P hip [...] as of this encounter (statuses as of 03/13/2024) Resolved Problems Problem Noted Date Diagnosed Date [...] as of this encounter (statuses as of 03/13/2024) Immunizations Name Administration Dates Next Due COVID-19 [...] No 11/29/2023 Does the household have a [facility] source [facility] income? (Household - for ages [...] Miscellaneous Notes * Addendum Note - Bear Craven MD [...] advise, pt requesting course of cipro. Uses [facility]. Thank you Kristen * Telephone Encounter - Ania Pastor OSA - 03/13/2024 9:55 AM EDT Pt. Calling to ask if Dr. Craven can call in an antibiotic for him for UTI he got from using self cath. Pt was on a antibiotic from his PCP which he completed, Pt. Now has symptoms again. Please callPt. To advise. * Telephone Encounter - Chasidy Carpenter RPh - 03/01/2024 11:11 AM EDT Expand All Collapse All Please resend Rx to [facility] [id number] Confirmed pharmacy did not receive original prescription. Patient states he is completely out of medication. Encounter dept corrected and will resend Thank you, Chasidy Carpenter [facility] Clinical Pharmacist Centralized Clinical Pharmacy Services (CCPS) 03/01/24 11:12 AM [phone] documented in this encounter Plan of Treatment Upcoming Encounters Date Type Department Care Team (Late st Contact Info) Description 03/18/2024 10:40 AM EDT Office Visit Dermatology [address] [place] [address] Maribel Cazares PA-C [address] [place] [address] [place] [address] 03/19/2024 9:20 AM EDT Anticoagulation Pharmacy, [address] [place] [address] [place] [address] 03/27/2024 10:45 AM EDT Procedure Only Urology, [facility] 132 [facility] [place] [address] Bear Craven MD [address] [place] [address] 04/01/2024 10:30 AM EDT Nurse Only Gastroenterology, [place] Ferreira [address] [place] [phone] [address] [place] [address] 04/05/2024 5:30 PM EDT Appointment MRI, [place] 100 [facility] [place] [address] 04/15/2024 10:30 AM EDT Office Visit Hematology/Oncology [place] 200 [facility] [place] [address] Genna Can MD [address] [place] [phone] 06/03/2024 11:00 AM EST Office Visit Family Medicine [address] [place] [phone] [place] [address] 06/06/2024 10:00 AM EST Office Visit Cardiology, [facility] [address] [place] [address] Iain Ward PA-C [address] [place] [address] Health Maintenance Due Date Last Done Comments [...] Directives occurred with: Not Discussed Care Teams Arrt Technologist Relationship Specialty Start Date End Date Xiomara Sapp MD [address] [place] [address] [place] [address] PCP - General Family Medicine 11/16/22 documented as of this encounter
--- OUTSIDE RECORDS SUMMARY | 2024-06-24 23:48 | External Medical Summary | Summary of Care ---
Author Name Unknown Organization [facility] Address [address] [place] [address] Phone [phone] Care Team Providers Care Career Development Coordinator Name Role Phone Xiomara Sapp MD Primary Care Prov ider Reason for Visit * Reason Onset Date Comments Medication Refill 03/01/2024 Lmtcb 03/14 Med Request 03/01/2024 Encounter Details Date Type Department Care Team (Late st Contact Info) Description 03/01/2024 Telephone Urology, [facility] 132 [facility] [place] [address] Bear Craven MD 27 [...] thrombosis),Histor y of pulmonary embolism,Anticoagu lation management encounter,[facility] current use of anticoagulant therapy [...] 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 Increased risk for hereditary hemochromatosis. S/P hip [...] No 11/29/2023 Does the household have a [facility] source of income? (Household - for ages [...] Encounter - Alisa Bowden LPN - 03/14/2024 4:24 PM EDT Spoke with patient. He is aware of the antibiotic, and will go to [facility] tomorrow morningat 10:30 for catheter placement, as there is no staff in the urology clinic at [facility]. * Telephone Encounter - Kathie Harry CPhT - 03/14/2024 4:21 PM EDT Patient warm transferred to Urology office to speak with nurse Thank You, Kathie Harry CPhT Bone Char Puller III Centralized Clinical Pharmacy Services ([facility]PS) * Telephone Encounter - Alisa Bowden LPN [...] advise, pt requesting course of cipro. Uses [employer]. Thank you Kristen * Telephone Encounter - [...] Collapse All Please resend Rx to E [facility] [id number] Confirmed pharmacy did not receive original prescription. Patient states he is completely out of medication. Encounter dept corrected and will resend Thank you, Chasidy Carpenter charla Clinical Pharmacist Centralized Clinical Pharmacy Services (CCPS) 03/01/24 11:12 AM [phone] documented in this encounter Plan of Treatment Upcoming Encounters Date Type Department Care Team (Late st Contact Info) Description 03/15/2024 10:30 AM EDT Nurse Only Urology [place] [address] [place] [address] Her[place] Nurse Urology [address] [place] [address] 03/18/2024 10:40 AM EDT Office Visit Dermatology [address] [place] [address] Maribel Cazares PA-C [address] [place] [address] [place] [address] 03/19/2024 9:20 AM EDT Anticoagulation Pharmacy, [address] [place] [address] [place] [address] 03/27/2024 10:45 AM EDT Procedure Only Urology, [facility] 132 [facility] [place] [address] Bear Craven MD [address] [place] [address] 04/01/2024 10:30 AM EDT Nurse Only Gastroenterology, [place] Ferreira [address] [place] [phone] [address] [place] [address] 04/05/2024 5:30 PM EDT Appointment MRI, [place] 100 [facility] [place] [address] 04/15/2024 10:30 AM EDT Office Visit Hematology/Oncology [place] 200 [facility] [place] [phone] Genna Can MD 400 [facility] [place] [phone] 06/03/2024 11:00 AM EST Office Visit Family Medicine [address] [place] [phone] Sheri Carpio [address] [place] [address] 06/06/2024 10:00 AM EST Office Visit Cardiology, [facility] [address] [place] [address] Iain Ward PA-C [address] [place] [address] Health Maintenance Due Date Last Done Comments Adult Wellness Visit 06/09/2016 06/09/2015 COVID-19 Vaccine ( season) 2024 08/03/2021, 10/22/2020, 10/01/2020 Influenza Vaccine (FLU shot) (#1) 2024 03/10/2023, 03/28/2022, 03/12/2021, Additional history exists Depression Screening 11/28/2024 11/29/2023 DIG LEVEL FOR MEDICATION MONITORING YEARLY 12/05/2024 12/06/2023, 11/17/2022, 10/22/2021, Additional history exists GFR 02/20/2025 02/21/2024, 12/09/2022, 04/27/2023, Additional history exists Fasting Serum Ferritin [...] Directives occurred with: Not Discussed Care Teams Career Development Coordinator Relationship Specialty Start Date End Date Xiomara Sapp MD [address] [place] [address] [place] [address] PCP - General Family Medicine 11/16/22 documented as of this encounter
--- OUTSIDE RECORDS SUMMARY | 2024-06-24 23:48 | External Medical Summary | Summary of Care ---
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 Increased risk for hereditary hemochromatosis. S/P hip [...] No 11/29/2023 Does the household have a [facility] source of income? (Household - for [...] encounter Miscellaneous Notes * Telephone Encounter - Kathie Harry CPhT - 03/14/2024 4:21 PM EDT Patient warm transferred to Urology office to speak with nurse Thank You, Kathie aHrry [facility] Enamel Shader III Centralized Clinical Pharmacy Services (CCPS) * [...] advise, pt requesting course of cipro. Uses [employer]. Thank you Kristen * Telephone Encounter - [...] Collapse All Please resend Rx to E [facility] [id number] Confirmed pharmacy did not receive original prescription. Patient states he is completely out of medication. Encounter dept corrected and will resend Thank you, Chasidy Carpenter [facility] Clinical Pharmacist Centralized Clinical Pharmacy Services (CCPS) 03/01/24 11:12 AM [phone] Electronically signed by Chasidy Carpenter [facility] at 03/01/2024 11:12 AM EDT documented in this encounter Plan of Treatment Upcoming Encounters Date Type Department Care Team (Late st Contact Info) Description 03/18/2024 10:40 AM EDT Office Visit Dermatology [address] [place] [address] Maribel Cazares PA-C [address] [place] [address] [place] [address] 03/19/2024 9:20 AM EDT Anticoagulation Pharmacy, [address] [place] [address] [place] [address] 03/27/2024 10:45 AM EDT Procedure Only Urology, [facility] [address] [place] [address] Bear Craven MD [address] [place] [address] 04/01/2024 10:30 AM EDT Nurse Only Gastroenterology, [address], [place] [address] [place] [address] [place], Nurse [address]astro [address] [place] [address] 04/05/2024 5:30 PM EDT Appointment [facility], [address] [place] [phone] 04/15/2024 10:30 AM EDT Office Visit Hematology/Oncology [facility] 200 [facility] [phone] Genna Can MD 400 [facility] [place] [phone] 06/03/2024 11:00 AM EST Office Visit Family Medicine [address] [phone] Sheri Carpio [address] [place] [address] 06/06/2024 10:00 AM EST Office Visit Cardiology, [facility] 132 [place] [address] Iain Ward PA-C 132 [place] [address] Health Maintenance Due Date Last Done Comments [...] Directives occurred with: Not Discussed Care Teams Pre Sales Systems Engineer Relationship Specialty Start Date End Date Xiomara Sapp MD [address] [place] [address] [place] [phone] PCP - General Family Medicine 11/16/22 documented as of this encounter
--- OUTSIDE RECORDS SUMMARY | 2024-06-24 23:48 | External Medical Summary | Summary of Care ---
Author Name Unknown Organization [facility] Address [address] [place] [address] Phone [phone] Care Team Providers Care Translator Deaf Name Role Phone Xiomara Sapp MD Primary Care Prov ider Reason for Visit * Reason Comments Dosage Adjustment In Person (Anticoag Cl inic) Encounter Details Date Type Department Care Team (Latest Contact Info) Description 03/19/2024 9:20 AM EDT Anticoagulation Pharmacy, [address] [place] [address] [place] [address] Anticoagulation management encounter*; History of DVT (deep vein thrombosis); History of pulmonary embolism Allergies Active Allergy Reactions Criticality Noted Date Comments Sulfa Antibiotics 10/16/2003 Unknown reaction Vancomycin Low 06/17/2022 Other reaction(s): red, itchy Other reaction(s): red, itchy documented as of this encounter (statuses as of 03/19/2024) Medications Medication Sig Dispensed Refills Start Date [...] vein thrombosis),History of pulmonary embolism,Anticoagul ation management encounter,senior care current use of anticoagulant [...] as of this encounter (statuses as of 03/19/2024) Active Problems Problem Noted Date Diagnosed Date [...] 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 Increased risk for hereditary hemochromatosis. S/P hip [...] as of this encounter (statuses as of 03/19/2024) Resolved Problems Problem Noted Date Diagnosed Date [...] as of this encounter (statuses as of 03/19/2024) Immunizations Name Administration Dates Next Due COVID-19 [...] Progress Notes * Halima Rodriguez, [facility] - 03/19/2024 9:15 AM EDT Images from the original note were not included. Medication Therapy Disease Management - Anticoagulation Patient: Raghavendra Gramajo | : 1940 Subjective Contacts Contact Date/Time Type Contact Phone/Fax 03/12/2024 05:13 AM EDT Vendor (Outgoing) GramajoRaghavendra sarmiento [phone] 03/16/2024 05:08 AM EDT Vendor (Outgoing) Raghavendra Gramajo [phone] 03/18/2024 05:13 AM EDT Vendor (Outgoing) Raghavendra Gramajo [phone] Patient-Reported Symptoms: Patient Findings Positives: Other complaints Negatives: Signs/symptoms of thrombosis, Signs/symptoms of bleeding, Change in health, Change in alcohol use, Change in activity, Upcoming invasive procedure, Missed doses, Extra doses, Change in medications, Change in diet/appetite, Bruising Objective Current Warfarin Dose As of 03/19/2024 Warfarin maintenance plan: 7.5 mg (5 mg x 1.5) every Tue, Kelsea; 5 mg (5 mg x 1) all other days INR Result As of 03/19/2024 INR goal: 2.0-3.0 INR used for dosin.7 (03/19/2024) Assessment & Plan Warfarin Plan As of 03/19/2024 Full warfarin instructions: 7.5 mg every Tue, Kelsea; 5 mg all other days No change documented: Halima Rodriguez RPh Next INR check: 04/02/2024 Repeat PT/INR in 2 week(s) Weekly dose: not changed Additional Dosing Information: Patient states they were unable to understanding dosing card. Unsure of what doses he took the lastweek. Reviewed to contact [facility] if any questioning in dosing prior to taking. Patient expressed understanding. I spent a total of 10-19 minutes (exact time 15 mins) on the date of service in preparation, delivery, and documentation of the care provided to Raghavendra Gramajo excluding any time spent in the performance of separately billed services or time spent by another provider/QHP. Halima Rodriguez RPh Clinical Pharmacist 03/19/2024, 9:15 AM documented in this encounter Plan of Treatment Upcoming Encounters Date Type Department Care Team (Late st Contact Info) Description 03/27/2024 10:45 AM EDT Procedure Only Urology, [address] [place] [address] Bear Hood MD [address] [place] [address] 04/01/2024 10:30 AM EDT Nurse Only Gastroenterology, [address] [place] [address] [place] [phone] Herb, Nurse Gastro [address] [place] [address] 04/02/2024 9:40 AM EDT Anticoagulation Pharmacy, [address] [place] [address] [place] [address] 04/05/2024 5:30 PM EDT Appointment MRI, [address] [place] [address] 04/15/2024 10:30 AM EDT Office Visit Hematology/Oncology [facility] [place] [phone] Genna Can MD 400 [facility] [place] [address] 06/03/2024 11:00 AM EST Office Visit Family Medicine [address] [place] [phone] Sheri Carpio [address] [place] [address] 06/06/2024 10:00 AM EST [facility] [place] [address] Iain Ward PA-C [address] [place] [address] 07/03/2024 8:40 AM EST Office Visit Dermatology [address] [place] [address] Maribel Cazares PA-C [address] [place] [address] [place] [address] Health Maintenance Due Date Last Done Comments [...] Comments INR FINGERSTICK, POINT OF CARE STAT 03/19/2024 9:22 AM EDT Anticoagulation management encounter documented in this encounter Results * INR FINGERSTICK, POINT OF CARE (03/19/2024 9:22 AM EDT) Fingerstick INR 1.7 INR 9:24 AM EDT [facility] [place] [phone] Blood 03/19/2024 9:22 AM EDT 03/19/2024 9:24 AM EDT Narrative [facility] [place]-00 - 03/19/2024 9:24 AM EDT Therapeutic ranges for non-operative patients: Prophylaxsis/treatment of DVT: (Range:2.0-3.0) Treatment of pulmonary embolism:(Range:2.0-3.0) Prevention of systemic embolism from: -tissue heart valves -acute myocardial infarction -valvular heart disease -atrial fibrillation (Range: 2.0-3.0) Mechanical prosthetic valves: (Range: 2.5-3.5) Halima Bowens Michael [facility] LAB POINT OF CARE TEST DOCKED DEVICE UNSOLICITED RESULTS [facility] [place] [address] [place] [address] documented in this encounter Visit Diagnoses Diagnosis [...] Directives occurred with: Not Discussed Care Teams Translator Deaf Relationship Specialty Start Date End Date Xiomara Sapp MD [address] [place] [address] [place] [address] PCP - General Family Medicine 11/16/22 documented as of this encounter"
--- OUTSIDE RECORDS SUMMARY | 2024-06-24 23:48 | External Medical Summary | Summary of Care ---
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 Increased risk for hereditary hemochromatosis. S/P hip [...] No 11/29/2023 Does the household have a healthsource sagin[place]r source of income? (Household - for ages [...] Telephone Encounter - Johanne Calvo LPN - 03/15/2024 3:05 PM EDT Patient came to office, cath placed. Patient tolerated well, questions answered appropriately. * Telephone Encounter - Alisa Bowden LPN - 03/14/2024 4:24 PM EDT Spoke with patient. He is aware of the antibiotic, and will go to [facility] tomorrow morningat 10:30 for catheter placement, as there is no staff in the urology clinic at [facility]. * Telephone Encounter - Kathie Harry CPhT - 03/14/2024 4:21 PM EDT Patient warm transferred to Urology office to speak with nurse Thank You, Kathie Harry [facility] [employer] [facility] ([facility]) * Telephone Encounter - Alisa Bowden LPN - 03/14/2024 8:36 AM EDT lmtcb * Addendum Note - Bear Raines MD - 03/13/2024 3:08 PM EDTAddended by: BEAR RAINES on: 03/13/2024 03:08 PM Modules accepted: Orders * Telephone Encounter - Bear Raines MD - 03/13/2024 3:06 PM EDT Rx [...] LPN - 03/13/2024 1:[address] Raines Spoke with patient. States his urine is "like nothing you've ever seen before". States it is dark yellow and thick. Culture done by PCP 03/01/24, positive for infection. Patient finished course of nitrofurantoin about 5 days ago. States symptoms resolved with abx but returned shortly after. Denies fevers or chills. Please advise, pt requesting course of cipro. Uses [employer]. Thank you Kristen * Telephone Encounter - Ania Pastor OSA - 03/13/2024 9:55 AM EDT Pt. Calling to ask if Dr. Raines can call in an antibiotic for him for UTI he got from using self cath. Pt was on a antibiotic from his PCP which he completed, Pt. Now has symptoms again. Please callPt. To advise. * Telephone Encounter - Chasidy Carpenter RPh - 03/01/2024 11:11 AM EDT Expand All Collapse All Please resend Rx to [id number] Confirmed pharmacy did not receive original prescription. Patient states he is completely out of medication. Encounter dept corrected and will resend Thank you, Chasidy Carpenter [facility] Clinical Pharmacist [facility] ([facility]) 03/01/24 11:12 AM [phone] documented in this encounter Plan of Treatment Upcoming Encounters Date Type Department Care Team (Late st Contact Info) Description 03/18/2024 10:40 AM EDT Office Visit Dermatology [address] [place] [address] Maribel Cazares PA-C [address] [place] [address] [place] [address] 03/19/2024 9:20 AM EDT Anticoagulation Pharmacy, [address] [place] [address] [place] [address] 03/27/2024 10:45 AM EDT Procedure Only Urology, [facility] 132 [facility] [place] [address] Bear Raines MD 27 [facility] [place] [address] 04/01/2024 10:30 AM EDT Nurse Only Gastroenterology, [facility] [address] [place] [phone] Nurse Herb Gastro [address] [place] [address] 04/05/2024 5:30 PM EDT Appointment MRI, [place] [address] [facility] [place] [address] 04/15/2024 10:30 AM EDT Office Visit Hematology/Oncology [facility] [place] 200 [facility] [place] [phone] Genna Can MD [address] [place] [phone] 06/03/2024 11:00 AM EST Office Visit Family Medicine [address] [place] [phone] [place] [address] 06/06/2024 10:00 AM EST Office Visit Cardiology, [facility] [address] [place] [address] Iain Ward PA-C [address] [place] [address] Health Maintenance Due Date Last Done Comments [...] Completed 01/27/2015, 08/17/2012 Zoster Vaccines Completed 12/21/2019, 09/0 12/2017, 06/23/2015 RETIRED - COLONOSCOPY-EVERY 5 YRS [...] Directives occurred with: Not Discussed Care Teams Structural Steel Erection Supervisor Relationship Specialty Start Date End Date Xiomara Sapp MD [address] [place] [address] [place] [phone] PCP - General Family Medicine 11/16/22 documented as of this encounter
--- OUTSIDE RECORDS SUMMARY | 2024-06-24 23:48 | External Medical Summary | Summary of Care ---
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 Increased risk for hereditary hemochromatosis. S/P hip [...] mRNA, LNP-s, No Pre serve, 2-Dose Series ([place]) 10/22/2020,10/01/2020 COVID-19, LNP-s, No Preserve , Cordell-sucrose, [...] 03/27/2024 10:45 AM EDT Procedure Only Urology, [facility] 132 [facility] [place] [phone] Bear Craven MD 27 [place] [address] 04/01/2024 10:30 AM EDT Nurse Only Gastroenterology, Herb Ferreira 310 [facility] [place] [phone] Nurse Herb [facility] [address] [place] [address] 04/02/2024 9:40 AM EDT Anticoagulation Pharmacy, [address] [place] [address] [place] [address] 04/05/2024 5:30 PM EDT Appointment [facility] [place] 100 [facility] [place] [address] 04/15/2024 10:30 AM EDT Office Visit Hematology/Oncology [facility] [place] 200 [facility] [place] [phone] Genna Can MD 400 [facility] [place] [phone] 06/03/2024 11:00 AM EST Office Visit Family Medicine [address] [place] [phone] Sheri Carpio CRNP [address] [place] [address] [place] [address] 06/06/2024 10:00 AM EST Office Visit Cardiology, [facility] 132 [place] [address] Iain Ward PA-C [address] [place] [address] 07/03/2024 8:40 AM EST Office Visit Dermatology [address] [place] [address] Maribel Cazares PA-C [address] [place] [address] [place] [address] Health Maintenance Due Date Last Done Comments [...] Directives occurred with: Not Discussed Care Teams Echo Technician Relationship Specialty Start Date End Date Xiomara Sapp MD [address] [place] [address] [place] [address] PCP - General Family Medicine 11/16/22 documented as of this encounter
--- OUTSIDE RECORDS SUMMARY | 2024-06-24 23:48 | External Medical Summary | Summary of Care ---
Author Name Unknown Organization [facility] Address [address] [place] [address] Phone [phone] Care Team Providers Care Custom Car Builder Name Role Phone Xiomara Sapp MD Primary Care Prov ider Reason for Visit * Reason Onset Date Comments Advice 03/12/2024 Encounter Details Date Type Department Care Team (Late st Contact Info) Description 03/12/2024 Telephone Family [address] [phone] Xiomara Sapp MD [address] [place] [address] Advice Allergies Active Allergy Reactions Criticality Noted [...] the morning. 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 Increased risk for hereditary hemochromatosis. S/P hip [...] encounter Miscellaneous Notes * Telephone Encounter - Xiomara Sapp MD - 03/14/2024 12:25 PM EDT Already addressed per Urology. * Telephone Encounter - Marjorie Guerin LPN - 03/12/2024 1:18 PM EDT Pt calling due finishing ABX for uti a few days ago on 03/09. Starting yesterday his urine started getting cloudy again. He also has burning. He inquiring if another abx could be order, he indicates he has done well with cipro in the past. Pt drinks plenty of fluids. He self caths to void. Please advise. documented in this encounter Plan of Treatment Upcoming Encounters Date Type Department Care Team (Late st Contact Info) Description 03/18/2024 10:40 AM EDT Office Visit Dermatology [address] [place] [address] Maribel Cazares PA-C [address] [place] [address] [place] [address] 03/19/2024 9:20 AM EDT Anticoagulation Pharmacy, [address] [place] [address] [place] [address] 03/27/2024 10:45 AM EDT Procedure Only Urology, [facility] [address] [facility] [place] [address] Bear Craven MD 27 [facility] [place] [address] 04/01/2024 10:30 AM EDT Nurse Only Gastroenterology, [facility] [address] [phone] Herb, Nurse Gastro [employer] [address] [place], [place] [address] [address] 04/05/2024 5:30 PM EDT Appointment MRI, [address] [place] [address] 04/15/2024 10:30 AM EDT Office Visit Hematology/Oncology [facility] 200 [facility] [place] [phone] Genna Can MD 400 [place] [address] 06/03/2024 11:00 AM EST Office Visit Family Medicine [address] [place] [address] She[address] [place] [address] 06/06/2024 10:00 AM EST Office Visit Cardiology, [facility] [address] [place] [address] Iain Ward PA-C [address] [place] [address] Health Maintenance Due Date Last Done Comments [...] Directives occurred with: Not Discussed Care Teams Custom Car Builder Relationship Specialty Start Date End Date Xiomara Sapp MD [address] [place] [address] [place] [address] PCP - General Family Medicine 11/16/22 documented as of this encounter
--- OUTSIDE RECORDS SUMMARY | 2024-06-24 23:49 | External Medical Summary ---
Author Name Unknown Address Unknown Organization : Laboratory Report Ordering Provider Test Date Status RUPERTO WEINBERG 03/11/2024 11:52:58 Final Observation Date Value Abnormality Reference (Units ) Status ERYTHROPOIETIN (EPO) 03/11/2024 11:52:58 11.6 2.6-18.5 (mIU/mL) Final
Test Performed at:
[facility]
[address] [facility] [place] [address]
Andres Daley M.D., Ph.D.,Director of Laboratories Performing Location
--- OUTSIDE RECORDS SUMMARY | 2024-06-24 23:49 | External Medical Summary ---
Author Name Unknown Address Unknown Organization K09:[facility] [place] [address] Laboratory Report Ordering Provider Test Date Status RUPERTO WEINBERG 03/11/2024 11:52:58 Final Observation Date Value Abnormality Reference (Units ) Status SYNC LEUKOCYTES IN BLOOD BY AUTOMATED COUNT 03/11/2024 11:52:58 4.07 4.00-10.80 (K/uL) Final Segs 03/11/2024 11:52:58 64.9 40.0-75.0 (%) Final Lymphs % 03/11/2024 11:52:58 12.8 Below low normal 18.0-42.0 (%) Final Monos 03/11/2024 11:52:58 14.5 Above high normal 1.0-11.0 (%) Final Eosinophils 03/11/2024 11:52:58 7.6 Above high normal 0.0-6.0 (%) Final Basos 03/11/2024 11:52:58 0.2 0.0-2.0 (%) Final Absolute Segs 03/11/2024 11:52:58 2.64 1.80-7.70 (K/uL) Final Lymphs, absolute 03/11/2024 11:52:58 0.52 Below low normal 1.00-4.80 (K/ul) Final Monos, Abs 03/11/2024 11:52:58 0.59 0.00-1.10 (K/uL) Final Eos, Abs 03/11/2024 11:52:58 0.31 0.00-0.70 (K/uL) Final Basos, Abs 03/11/2024 11:52:58 0.01 0.00-0.20 (K/uL) Final Performing Location [facility] [place] [address]
--- OUTSIDE RECORDS SUMMARY | 2024-06-24 23:49 | External Medical Summary ---
Author Name Unknown Address Unknown Organization : Laboratory Report Ordering Provider Test Date Status RUPERTO WEINBERG 03/11/2024 11:52:58 Final Observation Date Value Abnormality Reference (Units ) Status METHYLMALONIC ACID 03/11/2024 11:52:58 189 8 5-423 (nmol/L) Final Serum methylmalonic acid (MM A) levels are used to
diagnose and monitor several rare inborn errors of
metabolism, including methylmalonic aciduria. The
enzymatic conversion of MMA to succinic acid requires
vitamin B12 (adenosyl-cobalamin) as a cofactor. Serum
MMA levels are also used for assessing functional
vitamin B12 deficiency. Vitamin B12 is essential for
neurodevelopment, particularly early in
. Undiagnosed maternal vitamin B12 deficiency
may be associated with adverse / outcomes,
such as neural tube defects and intrauterine growth
restriction.
[facility] utilized Multi-Modal Decomposition
(MMD) analysis to establish first and second trimester-
specific MMA reference intervals in , as given
below:
MMA, First trimester (<13 wks gestation): 58-167 nmol/L
MMA, Second trimester (13-23 wks gestation):
63-241 nmol/L
This test was developed and its analytical performance
characteristics have been determined by [facility]. It has not been cleared or approved by the
FDA. This assay has been validated pursuant to the CLIA
regulations and is used for clinical purposes.

Test Performed at:
[facility]
[address] [facility]
[place] [address]
Andres Daley M.D., Ph.D.,Director of Laboratories Performing Location
--- OUTSIDE RECORDS SUMMARY | 2024-06-24 23:49 | External Medical Summary ---
Author Name Unknown Address Unknown Organization K01:[facility] [address] [place] [address] Laboratory Report Ordering Provider Test Date Status RUPERTO WEINBERG 03/11/2024 11:52:58 Final Observation Date Value Abnormality Reference (Units ) Status Iron 03/11/2024 11:52:58 107 45-176 (ug/dL) Final Iron-binding capacity 03/11/2024 11:52:58 199 Below low normal 250-425 (ug/dL) Final Transferrin Sat % 03/11/2024 11:52:58 54 15-55 (%) Final Performing Location [facility] [address] [place] [address]
--- OUTSIDE RECORDS SUMMARY | 2024-06-24 23:49 | External Medical Summary ---
Author Name Unknown Address Unknown Organization : Laboratory Report Ordering Provider Test Date Status RUPERTO WEINBERG 03/11/2024 11:52:58 Final Observation Date Value Abnormality Reference (Units ) Status Homocysteine 03/11/2024 11:52:58 7.2 <11.4 ( umol/L) Final Homocysteine is increased by functional deficiency of
folate or vitamin B12. Testing for methylmalonic acid
differentiates between these deficiencies. Other causes
of increased homocysteine include renal failure, folate
antagonists such as methotrexate and phenytoin, and
exposure to nitrous oxide.
Guy Collins, et al. [employer] Med. 1999;131(5):331-9.

Test Performed at:
[facility]
[address] [facility]
[place] [address]
Andres Daley M.D., Ph.D.,Director of Laboratories Performing Location
--- OUTSIDE RECORDS SUMMARY | 2024-06-24 23:49 | External Medical Summary | Summary of Care ---
Author Name Unknown Organization [facility] Address [address] [place] [address] Phone [phone] Care Team Providers Care Milling Operator Name Role Phone Xiomara Sapp MD Primary Care Prov ider Reason for Visit * Reason Onset Date Comments Order Request 03/11/2024 Encounter Details Date Type Department Care Team (Late st Contact Info) Description 03/11/2024 Telephone Hematology/Oncology, [facility] [address] [place] [address] Genna Can MD [address] [place] [address] Order Request Allergies Active Allergy Reactions Criticality Noted Date Comments Sulfa Antibiotics 10/16/2003 Unknown reaction Vancomycin Low 06/17/2022 Other reaction(s): red, itchy Other reaction(s): red, itchy documented as of this encounter (statuses as of 03/11/2024) Medications Medication Sig Dispensed Refills Start Date [...] vein thrombosis),History of pulmonary embolism,Anticoagul ation management encounter,[facility] current use of anticoagulant therapy [...] as of this encounter (statuses as of 03/11/2024) Active Problems Problem Noted Date Diagnosed Date [...] 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 Increased risk for hereditary hemochromatosis. S/P hip [...] as of this encounter (statuses as of 03/11/2024) Resolved Problems Problem Noted Date Diagnosed Date [...] as of this encounter (statuses as of 03/11/2024) Immunizations Name Administration Dates Next Due COVID-19 [...] encounter Miscellaneous Notes * Telephone Encounter - Halima Spaulding LPN - 03/11/2024 12:45 PM EDT Scheduling: Please see Liver Elastography order in chart under Other Orders * Telephone Encounter - Jefferson Toth OSA - 03/11/2024 12:[address] Meyers's last note, patient needs Liver elastography. Is order required for this? Please advise. documented in this encounter Plan of Treatment Upcoming Encounters Date Type Department Care Team (Late st Contact Info) Description 03/18/2024 10:40 AM EDT Office Visit Dermatology [address] [place] [address] Maribel Cazares PA-C [address] [place] [address] [place] [address] 03/19/2024 9:20 AM EDT Anticoagulation Pharmacy, [address] [place] [address] [place] [address] 03/27/2024 10:45 AM EDT Procedure Only Urology, [facility] 132 [facility] [place] [address] Bear Craven MD 27 [facility] [place] [address] 04/05/2024 5:30 PM EDT Appointment [facility], [place] 100 [facility] [place] [address] 04/15/2024 10:30 AM EDT Office Visit Hematology/Oncology [facility] 200 [facility] [place] [phone] Genna Can MD [facility] [place] [phone] 06/03/2024 11:00 AM EST Office Visit Family Medicine [address] [place] [phone] Sheri Carpio [address] [place] [address] 06/06/2024 10:00 AM EST Office Visit Cardiology, [facility] [address] [place] [address] Iain Ward PA-C [address] [place] [address] Health Maintenance Due Date Last Done Comments Adult Wellness Visit 06/09/2016 06/09/2015 COVID-19 Vaccine ( season) 2024 08/03/2021, 10/22/2020, 10/01/2020 Influenza Vaccine (FLU shot) (#1) 2024 03/10/2023, 03/28/2022, 03/12/2021, Additional history exists Fasting Serum Ferritin Hereditary Hemochromatosis (HFE) Annual,All Ages 10/11/2024 10/12/2023, 05/29/2023, 02/09/2023, Additional history exists Transferrin Saturation Hereditary Hemochromatosis (HFE) Annual,All Ages 10/11/2024 10/12/2023, 05/29/2023, 02/09/2023, Additional history exists Depression Screening 11/28/2024 11/29/2023 DIG LEVEL FOR MEDICATION MONITORING YEARLY 12/05/2024 12/06/2023, 11/17/2022, 10/22/2021, Additional history exists GFR 02/20/2025 02/21/2024, 09/2022, 04/27/2023, Additional history exists Albumin/Creatinine Ratio 04/27/2025 04/27/2022 [...] Directives occurred with: Not Discussed Care Teams Milling Operator Relationship Specialty Start Date End Date Xiomara Sapp MD [address] [place] [address] [place] [address] PCP - General Family Medicine 11/16/22 documented as of this encounter
--- OUTSIDE RECORDS SUMMARY | 2024-06-24 23:49 | External Medical Summary | Summary of Care ---
Author Name Unknown Organization [facility] Address [address] [place] [address] Phone [phone] Care Team Providers Care Soap Chipper Name Role Phone Xiomara Sapp MD Primary Care Prov ider Reason for Referral * Precert (Within 24 hrs (call dept; emergent)) - Pending Review Specialty Diagnoses / Procedures Referred By Jer mccabe Referred To Contact Radiology Diagnoses Hereditary hemochromatosis (HCC) Procedures MRI LIVER W WO CONTRAST Genna Can MD [address] [place] [phone] Referral ID Status Reason Start Date Expiration Date V isits Requested Visits Authorized [id number] Pending Review 03/11/2024 999 999 Reason for Visit * Reason Comments NEW PATIENT Anemia and weight lo ss. * Evaluate & Treat - Unlimited Visits (Within 10 days (routine)) - Authorized Specialty Diagnoses / Procedures Referred By Jer mccabe Referred To Contact Hematology/Oncology / Hematology Oncology Diagnoses Unexplained weight loss Anemia, unspecified type Xiomara Sapp MD [address] [place] [address] [place] [address] Referral ID Status Reason Start Date Expiration Date Visits Requested Visits Authorized [id number] Authorized Specialty Services Required 03/01/2024 999 999 Encounter Details Date Type Department Care Team (Late st Contact Info) Description 03/11/2024 11:00 AM EDT Office Visit Hematology/Oncology [facility] [place] [address] [place] [phone] Genna Can MD [address] [place] [phone] Hereditary hemochromatosis (HCC)*; Anemia, unspecified type Allergies Active Allergy Reactions Criticality Noted Date [...] vein thrombosis),History of pulmonary embolism,Anticoagul ation management encounter,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 Increased risk for hereditary hemochromatosis. S/P hip [...] No 11/29/2023 Does the household have a [facility] source of income? (Household - for [...] Sign Reading Time Taken Comments Blood Pressure 148/72 03/11/2024 10:57 AM EDT Pulse 57 03/11/2024 10:57 AM EDT Temperature 36.3 C (97.4 F) 03/11/2024 10:57 AM E DT Respiratory Rate - - Oxygen Saturation 96% 03/11/2024 10:57 AM EDT Inhaled Oxygen Concentration - - Weight 74.8 kg (165 lb) 03/11/2024 10:57 AM EDT Height - - Body Mass Index 21.77 02/21/2024 9:39 AM EDT documented in this [...] Progress Notes * Genna Can MD - 03/11/2024 11:08 AM EDT Images from the original note were not included. Date of visit: 03/11/2024 Chief Complaint Patient presents with NEW PATIENT Anemia and weight loss. Subjective Raghavendra Gramajo is a 83 year old male presents for Hematology-Oncology consultation on 03/11/2024 dueto anemia and weight loss. 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 He reports his last phlebotomy was in Spring 2023 at [facility], before which it was about 6 months prior. Pt reports that he has liver MRI done in the past at [facility]. He also reports that his son and [...] SCP - THERAPEUTIC PHLEBOTOMY (6 Cycles/28 Days) [id number] Treatment not started 01/06/2022 12/31/2021 Other (receiving at [facility]) Sarah Santana, RN View plan SCP - THERAPEUTIC PHLEBOTOMY (6 Cycles/28 Days) [id number] -1 of 5 cycles 05/04/2018 11/16/2020 Therapy [...] mouth in the morning. 30 Capsule 6 No current facility-administered medications for this visit. Review of patient's allergies indicates: Allergen Reactions Sulfa Antibiotics Unknown reaction Vancomycin Other reaction(s): red, itchy Other reaction(s): red, itchy Review of Systems Constitutional: Positive for unexpected weight change (possible weight loss- unintentional -unable to quantify). HENT: Negative. Eyes: Negative. Respiratory: Negative. Cardiovascular: Negative. Gastrointestinal: Negative. Endocrine: Positive for heat intolerance. Genitourinary: Positive for difficulty urinating (needs to self cath). Negative for hematuria. Musculoskeletal: Positive for arthralgias (chronic) and gait problem (chronic). Skin: Negative. Allergic/Immunologic: Negative. Hematological: Negative. Objective BP 148/72 (BP Site: Left Arm, BP Position: Sitting, BP Cuff Size: Regular) | Pulse 57 | Temp 36.3 C (97.4 F) (Tympanic) | Wt 74.8 kg (165 lb) | SpO2 96% | BMI 21.77 kg/m | BSA 1.96 m Physical Exam Constitutional: General: He is not in acute distress. Appearance: Normal appearance. He is normal weight. He is not ill-appearing. HENT: Mouth/Throat: Pharynx: Oropharynx is clear. Eyes: General: No scleral icterus. Conjunctiva/sclera: Conjunctivae normal. Cardiovascular: Rate and Rhythm: Normal rate. Heart sounds: Normal heart sounds. Pulmonary: Breath sounds: Normal breath sounds. Abdominal: General: Bowel sounds are normal. Palpations: Abdomen is soft. Musculoskeletal: General: Normal range of motion. Skin: General: Skin is warm and dry. Coloration: Skin is not jaundiced. Neurological: General: No focal deficit present. Mental Status: He is alert. ASSESSMENT/PLAN: Mr. Gramajo is a 83 year old male seen for Hematology-Oncology consultation on 03/11/2024 due to anemia and weight loss. 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 He reports his last phlebotomy was in Spring 2023 at [facility], before which it was about 6 months [...] heterogeneously enhanced on USG abdomen performed 11/23/2023. Hereditary hemochromatosis (HCC) (Primary) - CBC WITH WBC DIFFERENTIAL; Future; Expected date: 03/11/2024 - RETICULOCYTE PANEL; Future; Expected date: 03/11/2024 - ERYTHROPOIETIN (EPO); Future; Expected date: 03/11/2024 - LD; Future; Expected date: 03/11/2024 - HAPTOGLOBIN - FERRITIN; Future; Expected date: 03/11/2024 - IRON SCREEN, INCLUDING TIBC; Future; Expected date: 03/11/2024 - METHYLMALONIC ACID, SERUM; Future; Expected date: 03/11/2024 - HOMOCYSTEINE; Future; Expected date: 03/11/2024 - MRI LIVER W WO CONTRAST; Future; Expected date: 03/11/2024 - LIVER ELASTOGRAPHY W/O IMAGING Anemia, unspecified type - CBC WITH WBC DIFFERENTIAL; Future; Expected date: 03/11/2024 - RETICULOCYTE PANEL; Future; Expected date: 03/11/2024 - ERYTHROPOIETIN (EPO); Future; Expected date: 03/11/2024 - LD; Future; Expected date: 03/11/2024 - HAPTOGLOBIN - FERRITIN; Future; Expected date: 03/11/2024 - IRON SCREEN, INCLUDING TIBC; Future; Expected date: 03/11/2024 - METHYLMALONIC ACID, SERUM; Future; Expected date: 03/11/2024 - HOMOCYSTEINE; Future; Expected date: 03/11/2024 - TSH; Future; Expected date: 03/11/2024 Follow-up: Return in about 1 month (around 04/10/2024). | Check-out note: Labs today Liver elastography MRI liver for iron content estimation See me back in 1month Genna Can MD documented in this encounter Nursing Notes * Monica Hernandez MED ASSIST - 03/11/2024 11:01 AM EDT Patient identifed by name and [...] it for you? ALREADY ACTIVE Filed Vitals: 03/11/24 1057 BP: 148/72 Pulse: 57 Temp: 36.3 C (97.4 F) TempSrc: Tympanic SpO2: 96% Weight: 74.8 kg (165 lb) Patient was instructed to not get up [...] 03/18/2024 10:40 AM EDT Office Visit Dermatology [address] [place] [address] Maribel Cazares PA-C [address] [place] [address] [place] [address] 03/19/2024 9:20 AM EDT Anticoagulation Pharmacy, [address] [place] [address] [place] [address] 03/27/2024 10:45 AM EDT Procedure Only Urology, [facility] [address] [place] [address] Bear Craven MD [address] [place] [address] 04/05/2024 5:30 PM EDT Appointment [facility], [address] [address] 04/15/2024 10:30 AM EDT Office Visit Hematology/Oncology [facility] 200 [facility] [place] [phone] Genna Can MD [address] [place] [phone] 06/03/2024 11:00 AM EST Office Visit Family Medicine [address] [place] [phone] Sheri Carpio[address] [place] [address] 06/06/2024 10:00 AM EST Office Visit Cardiology, [facility] 132 [place] [address] Iain Ward PA-C 132 [place] [address] Pending Results Name Type Priority Associated Diagnoses Date /Time RETICULOCYTE PANEL Lab STAT Hereditary hemochromatosis (HCC) Anemia, unspecified type 03/11/2024 11:53 AM EDT ERYTHROPOIETIN (EPO) Lab STAT Hereditary hemochromatosis (HCC) Anemia, unspecified type 03/11/2024 11:52 AM EDT LD Lab STAT Hereditary hemochromatosis (HCC) Anemia, unspecified type 03/11/2024 11:52 AM EDT HAPTOGLOBIN Lab STAT Hereditary hemochromatosis (HCC) Anemia, unspecified type 03/11/2024 11:52 AM EDT FERRITIN Lab STAT Hereditary hemochromatosis (HCC) Anemia, unspecified type 03/11/2024 11:52 AM EDT IRON SCREEN, INCLUDING TIBC Lab STAT Hereditary hemochromatosis (HCC) Anemia, unspecified type 03/11/2024 11:52 AM EDT METHYLMALONIC ACID, SERUM Lab STAT Hereditary hemochromatosis (HCC) Anemia, unspecified type 03/11/2024 11:52 AM EDT HOMOCYSTEINE Lab STAT Hereditary hemochromatosis (HCC) Anemia, unspecified type 03/11/2024 11:52 AM EDT Scheduled Orders Name Type Priority Associated Diagnoses Orde r Schedule RETICULOCYTE PANEL Lab STAT Hereditary hemochromatosis (HCC) Anemia, unspecified type Expected: 03/11/2024, Expires: 03/11/2025 ERYTHROPOIETIN (EPO) Lab STAT Hereditary hemochromatosis (HCC) Anemia, unspecified type Expected: 03/11/2024, Expires: 03/11/2025 LD Lab STAT Hereditary hemochromatosis (HCC) Anemia, unspecified type Expected: 03/11/2024, Expires: 03/11/2025 FERRITIN Lab STAT Hereditary hemochromatosis (HCC) Anemia, unspecified type Expected: 03/11/2024, Expires: 03/11/2025 IRON SCREEN, INCLUDING TIBC Lab STAT Hereditary hemochromatosis (HCC) Anemia, unspecified type Expected: 03/11/2024, Expires: 03/11/2025 METHYLMALONIC ACID, SERUM Lab STAT Hereditary hemochromatosis (HCC) Anemia, unspecified type Expected: 03/11/2024, Expires: 03/11/2025 HOMOCYSTEINE Lab STAT Hereditary hemochromatosis (HCC) Anemia, unspecified type Expected: 03/11/2024, Expires: 03/11/2025 MRI LIVER W WO CONTRAST Medical Imaging STAT Hereditary hemochromatosis (HCC) Expected: 03/11/2024, Expires: 04/10/2025 LIVER ELASTOGRAPHY W/O IMAGING Procedures Routine Hereditary hemochromatosis (HCC) Ordered: 03/11/2024 TSH Lab Routine Anemia, unspecified type Expected: 03/11/2024, Expires: 03/11/2025 Health Maintenance Due Date Last Done Comments [...] Diagnosis Hereditary hemochromatosis (HCC)- Primary Hereditary hemochromatosis Anemia, unspecified type documented in this encounter Advance Directives * Full Code (Latest Code Status on File) Date Activated Date Inactivated Comments 11/13/2020 4:45 PM 11/14/2020 5:13 PM Question Answer Comments Discussion of Advance Directives occurred with: Not Discussed Care Teams Soap Chipper Relationship Specialty Start Date End Date Xiomara Sapp MD [address] [place] [address] [place] [phone] PCP - General Family Medicine 11/16/22 documented as of this encounter"
--- OUTSIDE RECORDS SUMMARY | 2024-06-24 23:49 | External Medical Summary ---
Author Name Unknown Address Unknown Organization [id number]:[facility] [place] [address] [place] [address] Laboratory Report Ordering Provider Test Date Status LUKASZ JOHNSON 03/11/2024 11:52:58 Final Observation Date Value Abnormality Reference (Units ) Status Vitamin B12 03/11/2024 11:52:58 [id number] (pg/mL) Final Performing Location [facility] [place] [address] [place] [address]
--- OUTSIDE RECORDS SUMMARY | 2024-06-24 23:49 | External Medical Summary ---
Author Name Unknown Address Unknown Organization [id number][place] [place] [facility] [address] [facility] [address] [facility] [address] Laboratory Report Ordering Provider Test Date Status RUPERTO WEINBERG 03/11/2024 11:53:10 Final Observation Date Value Abnormality Reference (Units ) Status Retic, % (auto) 03/11/2024 11:53:10 1.47 0.80-1.90 (%) Final Reticulocytes, Absolute 03/11/2024 11:53:10 66.0 31.3-100.1 (K/uL) Final Reticulocyte fraction, immature 03/11/2024 11:53:10 9.5 2.5-20.6 (%) Final Reticulocyte HGB 03/11/2024 11:53:10 35.1 29.7-37.4 (pg) Final Performing Location [facility] [place] [address] [facility] [address]
--- OUTSIDE RECORDS SUMMARY | 2024-06-24 23:49 | External Medical Summary ---
Author Name Unknown Address Unknown Organization K01:[facility] [place] [address] [place] [address] Laboratory Report Ordering Provider Test Date Status SULTANARUPERTO LEIJA 03/11/2024 11:52:58 Final Observation Date Value Abnormality Reference (Units ) Status Ferritin 03/11/2024 11:52:58 93 30-400 (ng /mL) Final Performing Location LABORATORY [facility] - [address] [place] [address]
--- OUTSIDE RECORDS SUMMARY | 2024-06-24 23:49 | External Medical Summary ---
Author Name Unknown Address Unknown Organization K09:[facility]ORY [facility] [place] [address] Laboratory Report Ordering Provider Test Date Status RUPERTO WEINBERG 03/11/2024 11:52:58 Final Observation Date Value Abnormality Reference (Units ) Status WBC, Total 03/11/2024 11:52:58 4.07 4.00-10.8 0 (K/uL) Final RBC 03/11/2024 11:52:58 4.41 4.50-5.25 (M/uL) Final Hemoglobin 03/11/2024 11:52:58 13.6 Below low normal 14 .0-16.8 (g/dL) Final HCT 03/11/2024 11:52:58 40.7 40.0-48.4 (%) Final MCV 03/11/2024 11:52:58 92.3 82.0-99.5 (fL) Final MCH 03/11/2024 11:52:58 30.8 27.0-34.0 (pg) Final MCHC 03/11/2024 11:52:58 33.4 32.0-36.0 (g/dL) Final RDW 03/11/2024 11:52:58 14.0 11.5-15.5 (%) Final Platelets 03/11/2024 11:52:58 132 Below low normal 140 -400 (K/uL) Final MPV 03/11/2024 11:52:58 9.0 6.6-11.1 ( fL) Final Performing Location [facility] [place] [address]
--- OUTSIDE RECORDS SUMMARY | 2024-06-24 23:49 | External Medical Summary | Summary of Care ---
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 Increased risk for hereditary hemochromatosis. S/P hip [...] encounter Miscellaneous Notes * Telephone Encounter - Claritza Radford OSA - 03/13/2024 1:16 PM EDT Pt is scheduled COLBY Rae 03/13/2024 1:16 PM * Telephone Encounter - Anabel To OSA - 03/11/2024 1:51 PM EDT LIVER ELASTOGRAPHY W/O IMAGING [[id number]] (Order [id number] documented in this encounter Plan of Treatment Upcoming Encounters Date Type Department Care Team (Late st Contact Info) Description 03/18/2024 10:40 AM EDT Office Visit Dermatology [address] [place] [address] Maribel Cazares PA-C [address] [place] [address] [place] [address] 03/19/2024 9:20 AM EDT Anticoagulation Pharmacy, [address] [place] [address] [place] [address] 03/27/2024 10:45 AM EDT Procedure Only Urology, [facility] 132 [facility] [place] [address] Bear Craven MD 27 [facility] [place] [address] 04/01/2024 10:30 AM EDT Nurse Only Gastroenterology, [facility] [address] [place] [phone] Herb, Nurse Gastro [address] [facility] [place] [address] [place] [address] 04/05/2024 5:30 PM EDT Appointment MRI, [place] [facility] [address] 04/15/2024 10:30 AM EDT Office Visit Hematology/Oncology [facility] 200 [facility] [place] [phone] Genna Can MD 400 [facility] [place] [phone] 06/03/2024 11:00 AM EST Office Visit Family Medicine [facility] [place] [phone] Sheri Carpio [address] [place] [address] 06/06/2024 10:00 AM EST Office Visit Cardiology, [facility] [address] [place] [address] Iain Ward PA-C [address] [place] [address] Health Maintenance Due Date Last Done Comments [...] Directives occurred with: Not Discussed Care Teams Legal Editor Relationship Specialty Start Date End Date Xiomara Sapp MD [address] [place] [address] [place] [phone] PCP - General Family Medicine 11/16/22 documented as of this encounter
--- OUTSIDE RECORDS SUMMARY | 2024-06-24 23:49 | External Medical Summary | Summary of Care ---
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 Increased risk for hereditary hemochromatosis. S/P [...] encounter Miscellaneous Notes * Telephone Encounter - Jefferson Toth OSA - 03/11/2024 12:[address] Meyers's last note, patient needs Liver elastography. Is order required for this? Please advise. documented in this encounter Plan of Treatment Upcoming Encounters Date Type Department Care Team (Late st Contact Info) Description 03/18/2024 10:40 AM EDT Office Visit Dermatology [address] [place] [address] Maribel Cazares PA-C [address] [place] [address] [place] [address] 03/19/2024 9:20 AM EDT Anticoagulation Pharmacy, [address] [place] [address] [place] [address] 03/27/2024 10:45 AM EDT Procedure Only Urology, [facility] [address] [place] [address] Bear Craven MD [address] [place] [address] 04/05/2024 5:30 PM EDT Appointment [facility], [address] [place] [address] 04/15/2024 10:30 AM EDT Office Visit Hematology/Oncology [facility] 200 [facility] [place] [phone] Genna Can MD 400 [facility] [place] [phone] 06/03/2024 11:00 AM EST Office Visit Family Medicine [address] [place] [phone] Sheri Carpio [address] [place] [address] 06/06/2024 10:00 AM EST Office Visit Cardiology, [facility] 132 [place] [address] Iain Ward PA-C 132 [place] [address] Health Maintenance Due Date Last Done Comments [...] Directives occurred with: Not Discussed Care Teams Transportation Security Officer Relationship Specialty Start Date End Date Xiomara Sapp MD [address] [place] [address] [place] [address] PCP - General Family Medicine 11/16/22 documented as of this encounter
--- OUTSIDE RECORDS SUMMARY | 2024-06-24 23:49 | External Medical Summary | Summary of Care ---
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 Increased risk for hereditary hemochromatosis. S/P hip [...] mRNA, LNP-s, No Pre serve, 2-Dose Series ([employer]) 10/22/2020,10/01/2020 COVID-19, LNP-s, No Preserve , Cordell-sucrose, [...] 03/18/2024 10:40 AM EDT Office Visit Dermatology [address] [place] [address] Maribel Cazares PA-C [address] [place] [address] [place] [address] 03/19/2024 9:20 AM EDT Anticoagulation Pharmacy, [address] [place] [address] [place] [address] 03/27/2024 10:45 AM EDT Procedure Only Urology, [facility] [address] [place] [address] Bear Craven MD [address] [place] [address] 04/05/2024 5:30 PM EDT Appointment MRI, [address] [place] [address] 04/15/2024 10:30 AM EDT Office Visit Hematology/Oncology [facility] [address] [place] [address] Genna Can MD 400 [facility] [place] [address] 06/03/2024 11:00 AM EST Office Visit Family Medicine [address] [phone] Sheri Carpio[address] [place] [address] 06/06/2024 10:00 AM EST Office Visit Cardiology, [facility] [address] [address] Iain Ward PA-C [address] [place] [address] Health Maintenance Due Date Last Done Comments [...] Directives occurred with: Not Discussed Care Teams Sandblasting Supervisor Relationship Specialty Start Date End Date Xiomara Sapp MD [address] [place] [address] [place] [address] PCP - General Family Medicine 11/16/22 documented as of this encounter
--- OUTSIDE RECORDS SUMMARY | 2024-06-24 23:49 | External Medical Summary ---
Author Name Unknown Address Unknown Organization K01:LABORATORY [facility] - [address] [place] [address] Laboratory Report Ordering Provider Test Date Status RUPERTO WEINBERG 03/11/2024 11:52:58 Final Observation Date Value Abnormality Reference (Units ) Status LDH 03/11/2024 11:52:58 183 <=250 (U/L ) Final Results may be falsely eleva faith due to hemolysis. Performing Location [facility] - [address] [place] [address]
--- OUTSIDE RECORDS SUMMARY | 2024-06-24 23:49 | External Medical Summary | Summary of Care ---
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 Increased risk for hereditary hemochromatosis. S/P hip [...] encounter Miscellaneous Notes * Telephone Encounter - Anabel To OSA - 03/11/2024 1:51 PM EDT LIVER ELASTOGRAPHY W/O IMAGING [[id number]] (Order [id number] documented in this encounter Plan of Treatment Upcoming Encounters Date Type Department Care Team (Late st Contact Info) Description 03/18/2024 10:40 AM EDT Office Visit Dermatology [address] [place] [address] Maribel Cazares PA-C [address] [place] [address] [place] [address] 03/19/2024 9:20 AM EDT Anticoagulation Pharmacy, [address] [place] [address] [place] [address] 03/27/2024 10:45 AM EDT Procedure Only Urology, [facility] [address] [place] [address] Bear Craven MD [address] [place] [address] 04/05/2024 5:30 PM EDT Appointment [facility], [address] [address] 04/15/2024 10:30 AM EDT Office Visit Hematology/Oncology [facility] 200 [facility] [place] [phone] Genna Can MD 400 [facility] [place] [phone] 06/03/2024 11:00 AM EST Office Visit Family Medicine [address] [place] [address] Sheri Carpio [address] [place] [address] 06/06/2024 10:00 AM EST Office Visit Cardiology, [facility] 132 [place] [address] Iain Ward PA-C 132 [place] [address] Health Maintenance Due Date Last Done Comments [...] Directives occurred with: Not Discussed Care Teams Curtain Feller Blindstitch Relationship Specialty Start Date End Date Xiomara Sapp MD [address] [place] [address] [place] [phone] PCP - General Family Medicine 11/16/22 documented as of this encounter
--- OUTSIDE RECORDS SUMMARY | 2024-06-24 23:49 | External Medical Summary | Summary of Care ---
Author Name Unknown Organization [facility] Address [address] [place] [address] Phone [phone] Care Team Providers Care Flight Radio Officer Name Role Phone Xiomara Sapp MD Primary Care Prov ider Reason for Visit * Reason Comments Outpatient Testing Encounter Details Date Type Department Care Team (Latest Contact Info) Description 03/11/2024 12:00 PM EDT Laboratory Laboratory [facility] [place] [address] [place] [address] [facility] Sc[facility] [place] [address] Anemia, unspecified type; Hereditary hemochromatosis (HCC) Allergies Active Allergy Reactions Criticality Noted Date [...] vein thrombosis),History of pulmonary embolism,Anticoagul ation management encounter,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 Increased risk for hereditary hemochromatosis. S/P hip [...] 03/18/2024 10:40 AM EDT Office Visit Dermatology [address] [place] [address] Maribel Cazares PA-C [address] [place] [address] [place] [address] 03/19/2024 9:20 AM EDT Anticoagulation Pharmacy, [address] [place] [address] [place] [address] 03/27/2024 10:45 AM EDT Procedure Only Urology, [facility] 132 [facility] [place] [address] Bear Craven MD 27 [place] [address] 06/03/2024 11:00 AM EST Office Visit Family Medicine [address] [place] [address] [place] [address] 06/06/2024 10:00 AM EST Office Visit Cardiology, [facility] [place] [address] Iain Ward, PAJosueC 132 [facility] [place] [address] Pending Results Name Type Priority Associated Diagnoses Date /Time VITAMIN B12 Lab Routine Anemia, unspecified type 03/11/2024 11:52 AM EDT ERYTHROPOIETIN (EPO) Lab STAT Hereditary [...] Anemia, unspecified type 03/11/2024 11:52 AM EDT RETICULOCYTE PANEL Lab STAT Hereditary hemochromatosis (HCC) Anemia, unspecified type 03/11/2024 11:53 AM EDT Health Maintenance Due Date Last [...] Procedure Name Priority Date/Time Associated Diagnosis Comments DIFFERENTIAL, AUTOMATED STAT 03/11/2024 11:52 AM EDT Hereditary hemochromatosis (HCC) Anemia, unspecified type CBC STAT 03/11/2024 11:52 AM EDT Hereditary hemochromatosis (HCC) Anemia, unspecified type CBC STAT 03/11/2024 11:52 AM EDT Hereditary hemochromatosis (HCC) Anemia, unspecified type documented in this encounter Results * (ABNORMAL) DIFFERENTIAL, AUTOMATED (03/11/2024 11:52 AM EDT) WBC 4.07 4.00 - 10.80 K/uL 03/11/2024 12:05 PM EDT [facility] [place] 56-02 Neutrophils % 64.9 40.0 - 75.0 % 03/11/2024 12:05 PM EDT [facility] [place] 56-02 Lymphocytes % 12.8(L) 18.0 - 42.0 % 03/11/2024 12:05 PM EDT [facility] [place] 56-02 Monocytes % 14.5(H) 1.0 - 11.0 % 03/11/2024 12:05 PM EDT [facility] [place] 56-02 Eosinophils % 7.6(H) 0.0 - 6.0 % 03/11/2024 12:05 PM EDT [facility] [place] 56-02 Basophils % 0.2 0.0 - 2.0 % 03/11/2024 12:05 PM EDT [facility] [place] 56-02 Absolute Neutrophils 2.64 1.80 - 7.70 K/uL 03/11/2024 12:05 PM EDT [facility] [place] 56-02 Absolute Lymphocytes 0.52(L) 1.00 - 4.80 K/ul 03/11/2024 12:05 PM EDT [facility] [place] 56-02 Absolute Monocytes 0.59 0.00 - 1.10 K/uL 03/11/2024 12:05 PM EDT [facility] [place] 56-02 Absolute Eosinophils 0.31 0.00 - 0.70 K/uL 03/11/2024 12:05 PM EDT [facility] [place] 56-02 Absolute Basophils 0.01 0.00 - 0.20 K/uL 03/11/2024 12:05 PM EDT [facility] [place] 56-02 Blood Venous blood specimen / Unknown Venipuncture / Unknown 03/11/2024 11:52 AM EDT 03/11/2024 11:52 AM EDT Genna Can MD LAB BLOOD ORDERABLES [facility] 56[facility] [address] [place] [address] * (ABNORMAL) CBC (03/11/2024 11:52 AM EDT) [facility] WBC 4.07 4.00 - 10.80 K/uL 03/11/2024 12:05 [address]T [address] RBC 4.41 4.50 - 5.25 M/uL 03/11/2024 12:05 PM EDT [place] [address] HGB 13.6(L) 14.0 - 16.8 g/dL 03/11/2024 12:05 PM EDT [address] HCT 40.7 40.0 - 48.4 % 03/11/2024 12:05 PM EDT [address] MCV 92.3 82.0 - 99.5 fL 03/11/2024 12:05 PM EDT [address] MCH 30.8 27.0 - 34.0 pg 03/11/2024 12:05 PM EDT [place] [address] MCHC 33.4 32.0 - 36.0 g/dL 03/11/2024 12:05 PM EDT [address] RDW 14.0 11.5 - 15.5 % 03/11/2024 12:05 PM EDT [facility] 56 PLT 132(L) 140 - 400 K/uL 03/11/2024 12:05 PM EDT [facility] 56 MPV 9.0 6.6 - 11.1 fL 03/11/2024 12:05 PM EDT [facility] 56 Blood Venous blood specimen / Unknown Venipuncture / Unknown 03/11/2024 11:52 AM EDT 03/11/2024 11:52 AM EDT Genna Can MD LAB BLOOD ORDERABLES [facility] [place] 56-[address] [place] [address] documented in this encounter Visit Diagnoses Diagnosis Anemia, unspecified type Hereditary hemochromatosis (HCC) Hereditary hemochromatosis documented in this encounter Advance Directives * Full Code (Latest Code Status on File) Date Activated Date Inactivated Comments 11/13/2020 4:45 PM 11/14/2020 5:13 PM Question Answer Comments Discussion of Advance Directives occurred with: Not Discussed Care Teams Flight Radio Officer Relationship Specialty Start Date End Date Xiomara Sapp MD [address] [place] [address] [place] [address] PCP - General Family Medicine 11/16/22 documented as of this encounter
--- OUTSIDE RECORDS SUMMARY | 2024-06-24 23:49 | External Medical Summary ---
Author Name Unknown Address Unknown Organization K01:[facility] [place] [address] [place] [address] Laboratory Report Ordering Provider Test Date Status RUPERTO WEINBERG 03/11/2024 11:52:58 Final Observation Date Value Abnormality Reference (Units ) Status Haptoglobin 03/11/2024 11:52:58 99 30-200 ( mg/dL) Final Performing Location [facility] - [address] [place] [address]
--- OUTSIDE RECORDS SUMMARY | 2024-06-24 23:49 | External Medical Summary | Summary of Care ---
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 Increased risk for hereditary hemochromatosis. S/P hip [...] mRNA, LNP-s, No Pre serve, 2-Dose Series ([employer]) 10/22/2020,10/01/2020 COVID-19, LNP-s, No Preserve , Cordell-sucrose, [...] encounter Miscellaneous Notes * Telephone Encounter - Ania Pastor, COLBY - 03/13/2024 9:55 AM EDT Pt. Calling [...] Collapse All Please resend Rx to [facility] [id number] Confirmed pharmacy did not receive original prescription. Patient states he is completely out of medication. Encounter dept corrected and will resend Thank you, Chasidy Carpenter [facility] Clinical Pharmacist Centralized Clinical Pharmacy Services (CCPS) 03/01/24 11:12 AM [phone] documented in this encounter Plan of Treatment Upcoming Encounters Date Type Department Care Team (Late st Contact Info) Description 03/18/2024 10:40 AM EDT Office Visit Dermatology [address] [place] [address] Maribel Cazares PA-C [address] [place] [address] [place] [address] 03/19/2024 9:20 AM EDT Anticoagulation Pharmacy, [address] [place] [address] [place] [address] 03/27/2024 10:45 AM EDT Procedure Only [facility]rology, [facility] 132 [facility] [place] [address] Bear Craven MD 27 [place] [address] 04/05/2024 5:30 PM EDT Appointment MRI, [place] 100 [address] [facility] [place] [address] 04/15/2024 10:30 AM EDT Office Visit [facility] [place] 200 [facility] [place] [phone] Genna Can MD [address] [place] [address] 06/03/2024 11:00 AM EST Office Visit Family Medicine [address] [place] [phone] Sheri Carpio [address] [place] [address] 06/06/2024 10:00 AM EST Office Visit Cardiology, [facility] [address] [place] [address] Iain Ward PA-C [address] [place] [address] Health Maintenance Due Date Last Done Comments [...] Directives occurred with: Not Discussed Care Teams Blow Up Operator Relationship Specialty Start Date End Date Xiomara Sapp MD [address] [place] [address] [place] [address] PCP - General Family Medicine 11/16/22 documented as of this encounter
--- OUTSIDE RECORDS SUMMARY | 2024-06-24 23:49 | External Medical Summary | Summary of Care ---
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 Increased risk for hereditary hemochromatosis. S/P hip [...] mRNA, LNP-s, No Pre serve, 2-Dose Series ([employer]) 10/22/2020,10/01/2020 COVID-19, LNP-s, No Preserve , Cordell-sucrose, [...] advise, pt requesting course of cipro. Uses [facility]. Thank you Kristen * Telephone Encounter - [...] Collapse All Please resend Rx to [facility] [id number] Confirmed pharmacy did not receive original prescription. Patient states he is completely out of medication. Encounter dept corrected and will resend Thank you, Chasidy Carpenter [facility] Clinical Pharmacist Centralized Clinical Pharmacy Services (CCPS) 03/01/24 11:12 AM [phone] documented in this encounter Plan of Treatment Upcoming Encounters Date Type Department Care Team (Late st Contact Info) Description 03/18/2024 10:40 AM EDT Office Visit Dermatology [address] [place] [address] Maribel Cazares PA-C [address] [place] [address] [place] [address] 03/19/2024 9:20 AM EDT Anticoagulation Pharmacy, [address] [place] [address] [place] [address] 03/27/2024 10:45 AM EDT Procedure Only Urology, [facility] 132 [facility] [place] [address] Bear Craven MD [address] [place] [address] 04/01/2024 10:30 AM EDT Nurse Only Gastroenterology, [address], [place] [address] [place] [phone] Herb Nurse [address]astro [address] [place] [address] 04/05/2024 5:30 PM EDT Appointment [facility], [address] [place] [address] 04/15/2024 10:30 AM EDT Office Visit Hematology/Oncology [facility] 200 [facility] [place] [phone] Genna Can MD 400 [facility] [place] [phone] 06/03/2024 11:00 AM EST Office Visit Family Medicine [address] [place] [phone] Sheri Carpio [address] [place] [address] 06/06/2024 10:00 AM EST Office Visit Cardiology, [facility] 132 [facility] [place] [address] Iain Ward PA-C [address] [place] [address] Health Maintenance Due Date Last Done Comments [...] Directives occurred with: Not Discussed Care Teams Bunk Assembler Relationship Specialty Start Date End Date Xiomara Sapp MD [address] [place] [address] [place] [phone] PCP - General Family Medicine 11/16/22 documented as of this encounter
--- OUTSIDE RECORDS SUMMARY | 2024-06-24 23:49 | External Medical Summary ---
Author Name Unknown Address Unknown Organization K01:LABORATORY [facility] - [address] [place] [address] Laboratory Report Ordering Provider Test Date Status SULTANARUPERTO 03/11/2024 11:52:58 Final Observation Date Value Abnormality Reference (Units ) Status TSH 03/11/2024 11:52:58 1.97 0.27-4.20 (uIU/mL) Final Performing Location LAB[facility]ATORY [facility] - [address] [facility] [address]
--- OUTSIDE RECORDS SUMMARY | 2024-06-24 23:50 | External Medical Summary | Summary of Care ---
Author Name Unknown Organization [facility] Address [address] [place] [address] Phone [phone] Care Team Providers Care Culinary Specialist Name Role Phone Xiomara Sapp MD Primary Care Prov ider Reason for Visit * Reason Onset Date Comments TRIAGE 03/01/2024 Self-cathing Encounter Details Date Type Department Care Team (Late st Contact Info) Description 03/01/2024 Telephone Urology, [facility] [address] [place] [address] Services, Scheduling [address] [place] [address] TRIAGE (Self-cathing ) Allergies Active Allergy Reactions Criticality Noted Date Comments Sulfa Antibiotics 10/16/2003 Unknown reaction Vancomycin Low 06/17/2022 Other reaction(s): red, itchy Other reaction(s): red, itchy documented as of this encounter (statuses as of 03/05/2024) Medications Medication Sig Dispensed Refills Start Date [...] vein thrombosis),History of pulmonary embolism,Anticoagul ation management encounter,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 Do all this for 7 days. With food until gone. 14 Capsule 03/01/2024 03/08/20 24 Active Tamsulosin HCl 0.4 MG Oral Capsule (Flomax) Take 1 Capsule by mouth in the morning. 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 Increased risk for hereditary hemochromatosis. S/P hip [...] as of this encounter (statuses as of 03/05/2024) Resolved Problems Problem Noted Date Diagnosed Date [...] as of this encounter (statuses as of 03/05/2024) Immunizations Name Administration Dates Next Due COVID-19 [...] encounter Miscellaneous Notes * Telephone Encounter - Bear Craven MD - 03/05/2024 1:54 PM EDT Would have patient RTO for nursing visit for re-instruction. DIANE Reyes * Telephone Encounter - Johanne Calvo LPN - 03/01/2024 12:55 PM EDT I called and spoke with patient. He wanted to make us aware he is having difficulty with CIC/entering urethra. Patient had questions in regards to CIC, and which direction for entering catheter, questions answered per patient. He notes he is voiding on his own intermittently and is not concerned with inability to empty. He notes he was given a prescription for Macrobid today for a UTI and will start taking, along with Tamsulosin. Sending as FYI, or further recommendations. Johanne Cardoso LPN * Telephone Encounter - Johanne Calvo LPN - 03/01/2024 12:37 PM EDT lmtcb * Telephone Encounter - Monet Toscano OSA - 03/01/2024 12:11 PM EDT Reason for patient's call: pt returning call Johanne will return call * Telephone Encounter - Johanne Calvo LPN - 03/01/2024 11:42 AM EDT lmtcb * Telephone Encounter - Monet Toscano OSA - 03/01/2024 11:01 AM EDT Patient calling needs information regarding self-cathing (he's confused trying) Sent TT Karley said to refer msg to kayla Mandel documented in this encounter Plan of Treatment Upcoming Encounters Date Type Department Care Team (Late st Contact Info) Description 03/11/2024 11:00 AM EDT Office Visit Hematology/Oncology [facility] [place] [place] 200 [facility] [place], [place] [address] Genna Can, MD [address] [place] [phone] 03/18/2024 10:40 AM EDT Office Visit Dermatology [address] [place] [address] Maribel Cazares PA-C [address] [place] [address] [place] [address] 03/19/2024 9:20 AM EDT Anticoagulation Pharmacy, [address] [place] [address] [place] [address] 03/27/2024 10:45 AM EDT Procedure Only Urology, [facility] 132 [place] [address] Bear Craven MD 27 [place] [address] 06/03/2024 11:00 AM EST Office Visit Family Medicine [address] [place] [phone] [address] [place] [address] 06/06/2024 10:00 AM EST Office Visit Cardiology, [facility] 132 [place] [address] Iain Ward PA-C 132 [place] [address] Health Maintenance Due Date Last Done Comments [...] Directives occurred with: Not Discussed Care Teams Culinary Specialist Relationship Specialty Start Date End Date Xiomara Sapp MD [address] [place] [address] [place] [address] PCP - General Family Medicine 11/16/22 documented as of this encounter
--- OUTSIDE RECORDS SUMMARY | 2024-06-24 23:50 | External Medical Summary | Summary of Care ---
Author Name Unknown Organization [facility] Address [address] [place] [address] Phone [phone] Care Team Providers Care Insurance Agency Manager Name Role Phone Xiomara Sapp MD Primary Care Prov ider Encounter Details Date Type Department Care Team (Late st Contact Info) Description 02/27/2024 11:00 AM EDT Nurse Only Urology, 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 Increased risk for hereditary hemochromatosis. S/P hip [...] mRNA, LNP-s, No Pre serve, 2-Dose Series ([employer]) 10/22/2020,10/01/2020 COVID-19, LNP-s, No Preserve , Cordell-sucrose, [...] as of this encounter Nursing Notes * Alisa Bowden LPN - 02/27/2024 12:58 PM EDT Patient reported to office for CIC teaching. Patient has indwelling catheter in place. Catheter balloon deflated and catheter removed. Patient tolerated procedure well. CIC instructions reviewed withpatient. Advised to perform CIC 4- 5 times daily for amounts < 400mL. Patient given urinal to measure output. Patient given samples of 16 fr coudet catheters for supply. Coudet catheter needed due to inability to pass straight catheter. Patient has chronic urinary retention. Patient declined to attempt CIC in office, patient states he is comfortable with the procedure and has successfully self-catheterized at home with no issues. documented in this encounter Plan of Treatment Upcoming Encounters Date Type Department Care Team (Late st Contact Info) Description 03/18/2024 10:40 AM EDT Office Visit Dermatology [address] [place] [address] Maribel Cazares PA-C [address] [place] [address] [place] [address] 03/19/2024 9:20 AM EDT Anticoagulation Pharmacy, [address] [place] [address] [place] [address] 03/27/2024 10:45 AM EDT Procedure Only Urology, [facility] [address] [place] [address] Bear Craven MD [address] [place] [address] 06/03/2024 11:00 AM EST Office Visit Family Medicine [address] [place] [phone] Sheri Carpio [address] [place] [address] 06/06/2024 10:00 AM EST Office Visit Cardiology, [facility] [address] [place] [address] Iain Ward PA-C [address] [place] [address] Health Maintenance Due Date Last Done Comments [...] Directives occurred with: Not Discussed Care Teams Insurance Agency Manager Relationship Specialty Start Date End Date Xiomara Sapp MD [address] [place] [address] [place] [phone] PCP - General Family Medicine 11/16/22 documented as of this encounter
--- OUTSIDE RECORDS SUMMARY | 2024-06-24 23:50 | External Medical Summary | Summary of Care ---
Author Name Unknown Organization [facility] Address [address] [place] [address] Phone [phone] Care Team Providers Care Blow Down Helper Name Role Phone Xiomara Sapp MD Primary Care Prov ider Reason for Visit * Reason Onset Date Comments TRIAGE 03/01/2024 Self-cathing Encounter Details Date Type Department Care Team (Late st Contact Info) Description 03/01/2024 Telephone Urology, [facility] [address] [place] [address] Services, Scheduling [address] [place] [address] TRIAGE (Self-cathing ) Allergies Active Allergy Reactions Criticality Noted Date Comments Sulfa Antibiotics 10/16/2003 Unknown reaction Vancomycin Low 06/17/2022 Other reaction(s): red, itchy Other reaction(s): red, itchy documented as of this encounter (statuses as of 03/07/2024) Medications Medication Sig Dispensed Refills Start Date [...] vein thrombosis),History of pulmonary embolism,Anticoagul ation management encounter,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 Increased risk for hereditary hemochromatosis. S/P hip [...] as of this encounter (statuses as of 03/07/2024) Resolved Problems Problem Noted Date Diagnosed Date [...] as of this encounter (statuses as of 03/07/2024) Immunizations Name Administration Dates Next Due COVID-19 [...] Telephone Encounter - Alisa Bowden LPN - 03/07/2024 11:20 AM EDT Spoke with patient. He has been able to self-cath regularly since prior phone call. He is having noissues at this time, and will contact patient if anything arises. Thank you Kristen * Telephone Encounter - Johanne Calvo LPN - 03/05/2024 3:44 PM EDT lmtcb * Telephone Encounter - Bear Craven MD - 03/05/2024 1:54 PM EDT Would have patient RTO for nursing visit for re-instruction. Thx, HM * Telephone Encounter - Johanne [...] 03/11/2024 11:00 AM EDT Office Visit Hematology/Oncology [facility] [place] [address] [facility] [place] [address] Genna Can MD [address] [place] [phone] 03/18/2024 10:40 AM EDT Office Visit Dermatology [address] [place] [address] Maribel Cazares PA-C [address] [place] [address] [place] [address] 03/19/2024 9:20 AM EDT Anticoagulation Pharmacy, [address] [place] [address] [place] [address] 03/27/2024 10:45 AM EDT Procedure Only Urology, [facility] [address] [place] [id number] Bear Craven MD [address] [place] [address] 06/03/2024 11:00 AM EST Office Visit Family Medicine [address] [place] [phone] Sheri Carpio [address] [place] [address] 06/06/2024 10:00 AM EST Office Visit Cardiology, [facility] [address] [place] [address] Iain Ward PA-C [address] [place] [address] Health Maintenance Due Date Last Done Comments [...] occurred with: Not Discussed Care Teams Blow Down Helper Relationship Specialty Start Date End Date Xiomara Sapp MD [address] [place] [address] [place] [address] PCP - General Family Medicine 11/16/22 documented as of this encounter
--- OUTSIDE RECORDS SUMMARY | 2024-06-24 23:50 | External Medical Summary | Summary of Care ---
Author Name Unknown Organization [facility] Address [address] [place] [address] Phone [phone] Care Team Providers Care Orthopedic Shoes Salesperson Name Role Phone Xiomara Sapp MD Primary Care Prov ider Reason for Visit * Reason Onset Date Comments TRIAGE 03/01/2024 Self-cathing Encounter Details Date Type Department Care Team (Late st Contact Info) Description 03/01/2024 Telephone Urology, [facility] [address] [address] Services, Scheduling [address] [place] [address] TRIAGE (Self-cathing ) Allergies Active Allergy Reactions Criticality Noted Date Comments Sulfa Antibiotics 10/16/2003 Unknown reaction Vancomycin Low 06/17/2022 Other reaction(s): red, itchy Other reaction(s): red, itchy documented as of this encounter (statuses as of 03/01/2024) Medications Medication Sig Dispensed Refills Start Date [...] thrombosis),History of pulmonary embolism,Anticoagul 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 Increased risk for hereditary hemochromatosis. S/P hip [...] as of this encounter (statuses as of 03/01/2024) Resolved Problems Problem Noted Date Diagnosed Date [...] as of this encounter (statuses as of 03/01/2024) Immunizations Name Administration Dates Next Due COVID-19 [...] Care Team (Late st Contact Info) Description 03/04/2024 9:40 AM EDT Anticoagulation Pharmacy, [address] [place] [address] [place] [address] 03/18/2024 10:40 AM EDT Office Visit Dermatology [address] [place] [address] Maribel Cazares PA-C [address] [place] [address] [place] [address] 03/27/2024 10:45 AM EDT Procedure Only Urology, [facility] [address] [place] [address] Bear Craven MD [address] [place] [address] 06/03/2024 11:00 AM EST Office Visit Family Medicine [address] [place] [phone] Sheri Carpio CRNP [address] [place] [address] [place] [address] 06/06/2024 10:00 AM EST Office Visit Cardiology, [facility] [address] [place] [address] Iain Ward PA-C [address] [place] [address] Health Maintenance Due Date Last Done Comments [...] Directives occurred with: Not Discussed Care Teams Orthopedic Shoes Salesperson Relationship Specialty Start Date End Date Xiomara Sapp MD [address] [place] [address] [place] [address] PCP - General Family Medicine 11/16/22 documented as of this encounter
--- OUTSIDE RECORDS SUMMARY | 2024-06-24 23:50 | External Medical Summary | Summary of Care ---
Author Name Unknown Organization [facility] Address [address] [place] [address] Phone [phone] Care Team Providers Care Certified Phlebotomy Technician Name Role Phone Xiomara Sapp MD Primary Care Prov ider Reason for Visit * Reason Onset Date Comments TRIAGE 03/01/2024 Self-cathing Encounter Details Date Type Department Care Team (Late st Contact Info) Description 03/01/2024 Telephone Urology, [facility] [address] [place] [address] Services, Scheduling [address] [place] [address] TRIAGE (Self-cathing ) Allergies Active Allergy Reactions [...] vein thrombosis),History of pulmonary embolism,Anticoagul 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 Increased risk for hereditary hemochromatosis. S/P hip [...] 03/11/2024 11:00 AM EDT Office Visit Hematology/Oncology [facility] [place] [address] [facility] [place] [address] Genna Can MD [address] [place] [phone] 03/18/2024 10:40 AM EDT Office Visit Dermatology [address] [place] [address] Maribel Cazares PA-C [address] [place] [address] [place] [address] 03/19/2024 9:20 AM EDT Anticoagulation Pharmacy, [address] [place] [address] [place] [address] 03/27/2024 10:45 AM EDT Procedure Only Urology, [facility] [address] [place] [address] Bear Craven MD [address] [place] [address] 06/03/2024 11:00 AM EST Office Visit Family Medicine [address] [place] [phone] Sheri Crapio [address] [place] [address] 06/06/2024 10:00 AM EST Office Visit Cardiology, [facility] [address] [place] [address] Iain Ward PASdaie [address] [place] [address] Health Maintenance Due Date Last Done Comments [...] Directives occurred with: Not Discussed Care Teams Certified Phlebotomy Technician Relationship Specialty Start Date End Date Xiomara Sapp MD [address] [place] [address] [place] [phone] PCP - General Family Medicine 11/16/22 documented as of this encounter
--- OUTSIDE RECORDS SUMMARY | 2024-06-24 23:50 | External Medical Summary | Summary of Care ---
Author Name Unknown Organization [facility] Address [address] [place] [address] Phone [phone] Care Team Providers Care School Coordinator Name Role Phone Xiomara Sapp MD Primary Care Prov ider Reason for Visit * Reason Onset Date Comments Appointment 03/05/2024 HEM/ONC Encounter Details Date Type Department Care Team (Late st Contact Info) Description 03/05/2024 Telephone Family Medicine [address] [phone] Xiomara Sapp MD [address] [place], [place] [address] [phone] Appointment (HEM/ONC) Allergies Active Allergy Reactions Criticality Noted Date Comments Sulfa Antibiotics 10/16/2003 Unknown reaction Vancomycin Low 06/17/2022 Other reaction(s): red, itchy Other reaction(s): red, itchy documented as of this encounter (statuses as of 03/06/2024) Medications Medication Sig Dispensed Refills Start Date [...] vein thrombosis),History of pulmonary embolism,Anticoagul 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 Increased risk for hereditary hemochromatosis. S/P hip [...] as of this encounter (statuses as of 03/06/2024) Resolved Problems Problem Noted Date Diagnosed Date [...] as of this encounter (statuses as of 03/06/2024) Immunizations Name Administration Dates Next Due COVID-19 [...] encounter Miscellaneous Notes * Telephone Encounter - Herberth Salas OSA - 03/05/2024 9:56 AM EDT Referral placed. Please contact pt and assist in scheduling. Thank you documented in this encounter Plan of Treatment Upcoming Encounters Date Type Department Care Team (Late st Contact Info) Description 03/11/2024 11:00 AM EDT Office Visit Hematology/Oncology [facility] [place] [address] [place] [phone] Genna Can MD [address] [place] [phone] 03/18/2024 10:40 AM EDT Office Visit Dermatology [address] [place] [address] Maribel Cazares PA-C [address] [place] [address] [place] [address] 03/19/2024 9:20 AM EDT Anticoagulation Pharmacy, [address] [place] [address] [place] [address] 03/27/2024 10:45 AM EDT Procedure Only Urology, [facility] [address] [place] [address] Bear Craven MD [address] [place] [address] 06/03/2024 11:00 AM EST Office Visit Family Medicine [address] [place] [phone] Sheri Carpio [address] [place] [address] 06/06/2024 10:00 AM EST Office Visit Cardiology, [facility] [address] [place] [address] Iain Ward PA-C [address] [place] [address] Health Maintenance Due Date Last Done Comments [...] Directives occurred with: Not Discussed Care Teams School Coordinator Relationship Specialty Start Date End Date Xiomara Sapp MD [address] [place] [address] [place] [address] PCP - General Family Medicine 11/16/22 documented as of this encounter
--- OUTSIDE RECORDS SUMMARY | 2024-06-24 23:50 | External Medical Summary | Summary of Care ---
Author Name Unknown Organization [facility] Address [address] [place] [address] Phone [phone] Care Team Providers Care Microarray Operations Vice President Name Role Phone Xiomara Sapp MD Primary Care Prov ider Reason for Visit * Reason Comments Dosage Adjustment In Person (Anticoag Cl inic) Encounter Details Date Type Department Care Team (Latest Contact Info) Description 03/04/2024 9:40 AM EDT Anticoagulation Pharmacy, [address] [place] [address] [place] [address] Anticoagulation management encounter*; History of DVT (deep vein thrombosis); History of pulmonary embolism Allergies Active Allergy Reactions Criticality Noted Date Comments Sulfa Antibiotics 10/16/2003 Unknown reaction Vancomycin Low 06/17/2022 Other reaction(s): red, itchy Other reaction(s): red, itchy documented as of this encounter (statuses as of 03/04/2024) Medications Medication Sig Dispensed Refills Start Date [...] vein thrombosis),History of pulmonary embolism,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 Increased risk for hereditary hemochromatosis. S/P hip [...] as of this encounter (statuses as of 03/04/2024) Resolved Problems Problem Noted Date Diagnosed Date [...] as of this encounter (statuses as of 03/04/2024) Immunizations Name Administration Dates Next Due COVID-19 mRNA, LNP-s, No Pre serve, 2-Dose Series ([employer]) 10/22/2020,10/01/2020 COVID-19, LNP-s, No Preserve , Cordell-sucrose, [...] encounter Progress Notes * Halima Rodriguez, [facility] - 03/04/2024 9:39 AM EDT Images from the original note were not included. Medication Therapy Disease Management - Anticoagulation Patient: Raghavendra Gramajo | : 1940 Subjective Contacts Contact Date/Time Type Contact Phone/Fax 02/26/2024 05:16 AM EDT Vendor (Outgoing) Raghavendra Gramajo [phone] 03/01/2024 05:11 AM EDT Vendor (Outgoing) Raghavendra Gramajo [phone] 03/03/2024 05:12 AM EDT Vendor (Outgoing) Raghavendra Gramajo [phone] Patient-Reported Symptoms: Patient Findings Negatives: Signs/symptoms of thrombosis, Signs/symptoms of bleeding, Change in health, Change in alcohol use, Change in activity, Upcoming invasive procedure, Missed doses, Extra doses, Change in medications, Change in diet/appetite, Bruising Objective Current Warfarin Dose As of 03/04/2024 Warfarin maintenance plan: 7.5 mg (5 mg x 1.5) every Kelsea; 5 mg (5 mg x 1) all other days INR Result As of 03/04/2024 INR goal: 2.0-3.0 INR used for dosin.7 (03/04/2024) Assessment & Plan Warfarin Plan As of 03/04/2024 Full warfarin instructions: 7.5 mg every Tue, Kelsea; 5 mg all other days Next INR check: 03/19/2024 Repeat PT/INR in 2 week(s) Weekly dose: increased 6.7% Additional Dosing Information: I spent a total of 10-19 minutes (exact time 10 mins) on the date of service in preparation, delivery, and documentation of the care provided to Raghavendra Gramajo excluding any time spent in the performance of separately billed services or time spent by another provider/QHP. Halima Rodriguez [facility] Clinical Pharmacist 03/04/2024, 9:39 AM documented in this encounter Plan of Treatment Upcoming Encounters Date Type Department Care Team (Late st Contact Info) Description 03/18/2024 10:40 AM EDT Office Visit Dermatology [address] [place] [address] Maribel Cazares PA-C [address] [place] [address] [place] [address] 03/19/2024 9:20 AM EDT Anticoagulation Pharmacy, [address] [place] [address] [place] [address] 03/27/2024 10:45 AM EDT Procedure Only Urology, [facility] [address] [place] [address] Bear Craven MD [address] [place] [address] 06/03/2024 11:00 AM EST Office Visit Family Medicine [address] [place] [phone] Sheri [address] [place] [address] 06/06/2024 10:00 AM EST Office Visit Cardiology, [facility] [address] [place] [address] Iain Ward PAJosueC [address] [place] [address] Health Maintenance Due Date Last Done Comments [...] Comments INR FINGERSTICK, POINT OF CARE STAT 03/04/2024 9:45 AM EDT Anticoagulation management encounter documented in this encounter Results * INR FINGERSTICK, POINT OF CARE (03/04/2024 9:45 AM EDT) Fingerstick INR 1.7 INR 9:47 AM EDT LABORATORY [facility] 55-00 Blood 03/04/2024 9:45 AM EDT 03/04/2024 9:47 AM EDT Narrative [facility]-00 - 03/04/2024 9:47 AM EDT Therapeutic ranges for non-operative patients: Prophylaxsis/treatment of DVT: (Range:2.0-3.0) Treatment of pulmonary embolism:(Range:2.0-3.0) Prevention of systemic embolism from: -tissue heart valves -acute myocardial infarction -valvular heart disease -atrial fibrillation (Range: 2.0-3.0) Mechanical prosthetic valves: (Range: 2.5-3.5) Halima Rodriguez [facility] LAB POINT OF CARE TEST DOCKED DEVICE UNSOLICITED RESULTS [facility] [place] [place] [address] [place] [address] documented in this encounter Visit Diagnoses Diagnosis [...] Directives occurred with: Not Discussed Care Teams Microarray Operations Vice President Relationship Specialty Start Date End Date Xiomara Sapp MD [address] [place] [address] [place] [address] PCP - General Family Medicine 11/16/22 documented as of this encounter"
--- OUTSIDE RECORDS SUMMARY | 2024-06-24 23:50 | External Medical Summary | Summary of Care ---
Author Name Unknown Organization [facility] Address [address] [place] [address] Phone [phone] Care Team Providers Care Tennis Ball Cover Cementer Name Role Phone Xiomara Sapp MD Primary Care Prov ider Reason for Visit * Reason Onset Date Comments Advice 02/27/2024 Encounter Details Date Type Department Care Team (Late st Contact Info) Description 02/27/2024 Telephone Family Medicine [address] [phone] Xiomara Sapp MD [address] [place] [address] Advice Allergies Active Allergy Reactions Criticality [...] gone. 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 Increased risk for hereditary hemochromatosis. S/P hip [...] mRNA, LNP-s, No Pre serve, 2-Dose Series ([employer]) 10/22/2020,10/01/2020 COVID-19, LNP-s, No Preserve , Cordell-sucrose, [...] encounter Miscellaneous Notes * Addendum Note - Xiomara Sapp MD - 03/01/2024 10:12 AM EDT Addended by: XIOMARA ROMERO on: 03/01/2024 10:12 AM Modules accepted: Orders * Telephone Encounter - Xiomara Sapp MD - 03/01/2024 10:11 AM EDT Thank you. I have sent prescription for Macrobid to [facility] for him to start today - AFTER he submits the urine specimen for culture. * Telephone Encounter - Lynn Garza LPN - 03/01/2024 8:49 AM EDT Order signed. * Telephone Encounter - Marjorie Guerin LPN - 02/29/2024 3:51 PM EDT Patient aware and verbalized understanding Urine is cloudy, he does have urgency and pain. Culture order pending * Telephone Encounter - Monica Perez OSA - 02/29/2024 3:47 PM EDT Patient Calling Returning call to office. * Telephone Encounter - Mandie Alanis LPN - 02/29/2024 2:31 PM EDT Left message for pt to call back. * Telephone Encounter - Xiomara Sapp MD - 02/27/2024 11:49 AM EDT UA suggests urinary tract infection. Is he having pain with urination/ urgency or frequency? If yes, needs urine culture (and this would need to be recollected) documented in this encounter Plan of Treatment Upcoming Encounters Date Type Department Care Team (Late st Contact Info) Description 03/18/2024 10:40 AM EDT Office Visit Dermatology [address] [place] [address] Maribel Cazares PA-C [address] [place] [address] [place] [address] 03/19/2024 9:20 AM EDT Anticoagulation Pharmacy, [address] [place] [address] [place] [address] 03/27/2024 10:45 AM EDT Procedure Only Urology, [facility] [address] [place] [address] Bear Craven MD [address] [place] [address] 06/03/2024 11:00 AM EST Office Visit Family Medicine [address] [place] [phone] [address] [place] [address] 06/06/2024 10:00 AM EST Office Visit Cardiology, [facility] [address] [place] [address] Iain Ward PA-C [address] [place] [address] Health Maintenance Due Date Last Done Comments [...] encounter Results * (ABNORMAL) CULTURE, URINE, QUANTITATIVE (03/01/2024 8:49 AM EDT) Culture Growth >100,000 colonies/mL Escherichia coli(A) MICROBROTH DILUTIONS 03/03/2024 7:18 AM EDT [facility] [place] Urine specimen obtained by clean catch procedure / Unknown Non-blood Collection / Unknown 03/01/2024 8:49 AM EDT 03/01/2024 8:49 AM EDT Narrative [facility] [place] - 03/03/2024 7:18 AM EDT <10,000 colonies/ml mixed normal hetal Organism Antibiotic Method Susceptibility Escherichia coli Ampicillin [...] coli Trimeth/Sulfamethoxazole MICROBROTH D ILUTIONS <=20: Susceptible Xiomara García MD LAB MICRO - GENERAL ORDERABLES [facility] [place] [address] [place] [address] documented in this encounter Visit Diagnoses Diagnosis UTI (urinary tract infection)- Primary Urinary tract infection, site not specified documented in this encounter Advance Directives * Full Code (Latest Code Status on File) Date Activated Date Inactivated Comments 11/13/2020 4:45 PM 11/14/2020 5:13 PM Question Answer Comments Discussion of Advance Directives occurred with: Not Discussed Care Teams Tennis Ball Cover Cementer Relationship Specialty Start Date End Date Xiomara Sapp MD [address] [place] [address] [place] [address] PCP - General Family Medicine 11/16/22 documented as of this encounter
--- OUTSIDE RECORDS SUMMARY | 2024-06-24 23:50 | External Medical Summary | Summary of Care ---
Author Name Unknown Organization [facility] Address [address] [place] [address] Phone [phone] Care Team Providers Care Insulation Supervisor Name Role Phone Xiomara Sapp MD Primary Care Prov ider Reason for Visit * Reason Onset Date Comments TRIAGE 03/01/2024 Self-cathing Encounter Details Date Type Department Care Team (Late st Contact Info) Description 03/01/2024 Telephone Urology, [facility] [address] [place] [address] Services, Scheduling [address] [place] [address] TRIAGE (Self-cathing ) Allergies Active Allergy Reactions [...] vein thrombosis),History of pulmonary embolism,Anticoagul 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 Increased risk for hereditary hemochromatosis. S/P hip [...] encounter Miscellaneous Notes * Telephone Encounter - Monet Toscano OSA [...] Description 03/04/2024 9:40 AM EDT Anticoagulation Pharmacy, [address] [place] [address] [place] [address] 03/18/2024 10:40 AM EDT Office Visit Dermatology [address] [place] [address] Maribel Cazares PA-C [address] [place] [address] [place] [address] 03/27/2024 10:45 AM EDT Procedure Only Urology, [address] [place] [address] Bear Craven MD [address] [place] [address] 06/03/2024 11:00 AM EST Office Visit Family Medicine [address] [place] [phone] Sheri Carpio CRNP [address] [place] [address] [place] [address] 06/06/2024 10:00 AM EST Office Visit Cardiology, [address] [place] [address] Iain Ward PA-C [address] [place] [address] Health Maintenance Due Date Last Done Comments Adult Wellness Visit 06/09/2016 06/09/2015 COVID-19 Vaccine (2022- season) 2024 08/03/2021, 10/22/2020, 10/01/2020 Influenza Vaccine [...] Directives occurred with: Not Discussed Care Teams Insulation Supervisor Relationship Specialty Start Date End Date Xiomara Sapp MD [address] [place] [address] [place] [phone] PCP - General Family Medicine 11/16/22 documented as of this encounter
--- OUTSIDE RECORDS SUMMARY | 2024-06-24 23:50 | External Medical Summary | Summary of Care ---
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 Increased risk for hereditary hemochromatosis. S/P hip [...] encounter Miscellaneous Notes * Telephone Encounter - Umesh MONICA Whiting - 03/01/2024 12:55 PM EDT I called [...] Description 03/04/2024 9:40 AM EDT Anticoagulation Pharmacy, [address] [place] [address] [place] [address] 03/18/2024 10:40 AM EDT Office Visit Dermatology [address] [place] [address] Maribel Cazares PA-C [address] [place] [address] [place] [address] 03/27/2024 10:45 AM EDT Procedure Only Urology, [facility] [address] [place] [address] Bear Craven MD [address] [place] [address] 06/03/2024 11:00 AM EST Office Visit Family Medicine [address] [place] [phone] Sheri Carpio CRNP [address] [place] [address] [place] [address] 06/06/2024 10:00 AM EST Office Visit Cardiology, [facility] [address] [place] [address] Iain Ward PAJosueC [address] [place] [address] Health Maintenance Due Date Last Done Comments [...] Directives occurred with: Not Discussed Care Teams Spa Manager Relationship Specialty Start Date End Date Xiomara Sapp MD [address] [place] [address] [place] [phone] PCP - General Family Medicine 11/16/22 documented as of this encounter
--- OUTSIDE RECORDS SUMMARY | 2024-06-24 23:50 | External Medical Summary ---
Author Name Unknown Address Unknown Organization : Laboratory Report Ordering Provider Test Date Status ENZO COTO 03/04/2024 09:45:43 Final Therapeutic ranges for non-o perative patients:
Prophylaxsis/treatment of DVT: (Range:2.0-3.0)
Treatment of pulmonary embolism:(Range:2.0-3.0)
Prevention of systemic embolism from:
-tissue heart valves
-acute myocardial infarction
-valvular heart disease
-atrial fibrillation
(Range: 2.0-3.0)
Mechanical prosthetic valves: (Range: 2.5-3.5) Observation Date Value Abnormality Reference (Units ) Status INR in Capillary blood by Coagulation assay 03/04/2024 09:45:43 1.7 (INR) Final Performing Location
--- OUTSIDE RECORDS SUMMARY | 2024-06-24 23:50 | External Medical Summary | Summary of Care ---
Author Name Unknown Organization [facility] Address [address] [place] [address] Phone [phone] Care Team Providers Care Test Director Name Role Phone Xiomara Sapp MD Primary Care Prov ider Reason for Referral * Evaluate & Treat - Unlimited Visits (Within 10 days (routine)) - Authorized Specialty Diagnoses / Procedures Referred By Contem t Referred To Contact Hematology/Oncology / Hematology Oncology Diagnoses Unexplained weight loss Anemia, unspecified type Xiomara Sapp MD [address] [place] [address] [place] [address] Referral ID Status Reason Start Date Expiration Date Visits Requested Visits Authorized [id number] Authorized Specialty Services Required 03/01/2024 999 999 Question Answer Referral Priority Within 10 days (routine) Where should this appointment be scheduled? [facility] Reason for Referral Anemia Comments Anemia and weight loss. Reason for Visit * Reason Onset Date Comments Advice 03/01/2024 Encounter Details Date Type Department Care Team (Late st Contact Info) Description 03/01/2024 Telephone Family Medicine [address] [place] [address] Xiomara Sapp MD [address] [place] [address] [place] [address] Advice Allergies Active Allergy Reactions Criticality Noted [...] vein thrombosis),History of pulmonary embolism,Anticoagul ation management encounter,group home current use of anticoagulant therapy take [...] encounter Miscellaneous Notes * Telephone Encounter - Whitney Stern RN - 03/07/2024 4:17 PM EDT pt aware * Telephone Encounter - Xiomara Sapp MD - 03/07/2024 12:15 PM EDT Better to check a B12 level first. I've placed the order, and suggest he waits to see if hematologyorders any other labs next week. * Telephone Encounter - Whitney Stern RN - 03/07/2024 10:28 AM EDT Pt is already scheduled for hematology next week. He day say his whole family has to take vitamin b 12 and he used to but he stopped it. Do you want him to resume it , then repeat labs in a month? * Telephone Encounter - Xiomara Sapp MD - 03/01/2024 2:49 PM EDT Please call patient. His labs have not changed much, but I do notice a trend of mild anemia and weight loss which can raise concern for a blood cancer such as multiple myeloma or leukemia. I am recommending a hematology consultation to see if any additional testing should be done. Please let him know. documented in this encounter Plan of Treatment Upcoming Encounters Date Type Department Care Team (Late st Contact Info) Description 03/11/2024 11:00 AM EDT Office Visit Hematology/Oncology [facility] [place] [address] [place] [phone] Genna Can MD [address] [place] [address] [place] [phone] 03/18/2024 10:40 AM EDT Office Visit Dermatology [address] [place] [address] Maribel Cazares PA-C [address] [place] [address] [place] [address] 03/19/2024 9:20 AM EDT Anticoagulation Pharmacy, [address] [place] [address] [place] [address] 03/27/2024 10:45 AM EDT Procedure Only Urology, [facility] [address] [place] [address] Bear Craven MD [address] [place] [address] 06/03/2024 11:00 AM EST Office Visit Family Medicine [address] [place] [phone] Sheri Carpio [address] [place] [address] 06/06/2024 10:00 AM EST Office Visit Cardiology, [facility] [address] [place] [address] Iain Ward PA-C [address] [place] [address] Scheduled Orders Name Type Priority Associated Diagnoses Orde r Schedule VITAMIN B12 Lab Routine Anemia, unspecified type Expected: 03/07/2024 (Approximate), Expires: 03/07/2025 Scheduled Referrals Name Type Priority Associated Diagnoses Orde r Schedule HEMATOLOGY/ONCOLOGY REFERRAL OP Referral Within 10 days (routine) Unexplained weight loss Anemia, unspecified type Ordered: 03/01/2024 Health Maintenance Due Date Last Done Comments [...] as of this encounter Visit Diagnoses Diagnosis Unexplained weight loss- Primary Loss of weight Anemia, unspecified type documented in this encounter Advance Directives * Full Code (Latest Code Status on File) Date Activated Date Inactivated Comments 11/13/2020 4:45 PM 11/14/2020 5:13 PM Question Answer Comments Discussion of Advance Directives occurred with: Not Discussed Care Teams Test Director Relationship Specialty Start Date End Date Xiomara Sapp MD [address] [place] [address] [place] [phone] PCP - General Family Medicine 11/16/22 documented as of this encounter
--- OUTSIDE RECORDS SUMMARY | 2024-06-24 23:51 | External Medical Summary | Summary of Care ---
Author Name Unknown Organization [facility] Address [address] [place] [address] Phone [phone] Care Team Providers Care Educational Paraprofessional Name Role Phone Xiomara Sapp MD Primary Care Prov ider Reason for Visit * Reason Onset Date Comments Advice 02/29/2024 Encounter Details Date Type Department Care Team (Late st Contact Info) Description 02/29/2024 Telephone Access Center, [place] [address] [facility] *DO NOT REMOVE THIS DEPARTMENT* [place] [address] Services, Scheduling [address] [place] [address] Advice Allergies Active Allergy Reactions Criticality Noted Date Comments Sulfa Antibiotics 10/16/2003 Unknown reaction Vancomycin Low 06/17/2022 Other reaction(s): red, itchy Other reaction(s): red, itchy documented as of this encounter (statuses as of 02/29/2024) Medications Medication Sig Dispensed Refills Start Date [...] weight gain 30 Tablet 3 11/16/2022 Active Tamsulosin HCl 0.4 MG Oral Capsule (Flomax) Take 1 Capsule by mouth in the morning. 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 Increased risk for hereditary hemochromatosis. S/P hip [...] as of this encounter (statuses as of 02/29/2024) Resolved Problems Problem Noted Date Diagnosed Date [...] as of this encounter (statuses as of 02/29/2024) Immunizations Name Administration Dates Next Due COVID-19 [...] encounter Miscellaneous Notes * Telephone Encounter - Magda Rutherford OSA - 02/29/2024 9:07 AM EDT Patient needs refill on his tamsulosin sent to [facility] in [place] documented in this encounter Plan of Treatment Upcoming Encounters Date Type Department Care Team (Late st Contact Info) Description 03/04/2024 9:40 AM EDT Anticoagulation Pharmacy, [address] [place] [address] [place] [address] 03/18/2024 10:40 AM EDT Office Visit Dermatology [address] [place] [address] Maribel Cazares PA-C [address] [place] [address] [place] [address] 03/27/2024 10:45 AM EDT Procedure Only [facility], [facility] [place] [address] Bear Craven MD [address] [place] [address] 06/03/2024 11:00 AM EST Office Visit Family Medicine [address] [place] [phone] Sheri Carpio [address] [place] [address] 06/06/2024 10:00 AM EST Office Visit Cardiology, [facility] [address] [place] [address] Iain Ward PA-C [address] [place] [address] Health Maintenance Due Date Last Done Comments [...] Directives occurred with: Not Discussed Care Teams Educational Paraprofessional Relationship Specialty Start Date End Date Xiomara Sapp MD [address] [place] [address] [place] [address] PCP - General Family Medicine 11/16/22 documented as of this encounter
--- OUTSIDE RECORDS SUMMARY | 2024-06-24 23:51 | External Medical Summary | Summary of Care ---
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 Increased risk for hereditary hemochromatosis. S/P hip [...] mRNA, LNP-s, No Pre serve, 2-Dose Series ([employer]) 10/22/2020,10/01/2020 COVID-19, LNP-s, No Preserve , Cordell-sucrose, [...] encounter Miscellaneous Notes * Telephone Encounter - Lynn Garza LPN [...] Description 03/04/2024 9:40 AM EDT Anticoagulation Pharmacy, [address] [place] [address] [place] [address] 03/18/2024 10:40 AM EDT Office Visit Dermatology [address] [place] [address] Maribel Cazares PA-C [address] [place] [address] [place] [address] 03/27/2024 10:45 AM EDT Procedure Only Urology, [facility] 132 [facility] [place] [address] Bear Craven MD 27 [place] [address] 06/03/2024 11:00 AM EST Office Visit Family Medicine [address] [place] [phone] Sheri Carpio[address] [place] [address] 06/06/2024 10:00 AM EST Office Visit Cardiology, [facility] [address] [place] [address] Iain Ward PA-C [address] [place] [address] Pending Results Name Type Priority Associated Diagnoses Date /Time CULTURE, URINE, QUANTITATIVE Lab Routine UTI (urinary tract infection) 03/01/2024 8:49 AM EDT Scheduled Orders Name Type Priority Associated Diagnoses Orde r Schedule CULTURE, URINE, QUANTITATIVE Lab Routine UTI (urinary tract infection) Expected: 03/01/2024, Expires: 03/01/2025 Health Maintenance Due Date Last Done Comments [...] 02/20/2025 02/21/2024, 12/09/2022, 04/27/2023, Additional history exists Albumin/Creatinine Ratio 04/27/2025 [...] as of this encounter Visit Diagnoses Diagnosis UTI (urinary tract infection)- Primary Urinary tract infection, site not specified documented in this encounter Advance Directives * Full Code (Latest Code Status on File) Date Activated Date Inactivated Comments 11/13/2020 4:45 PM 11/14/2020 5:13 PM Question Answer Comments Discussion of Advance Directives occurred with: Not Discussed Care Teams Hospital Account Liaison Relationship Specialty Start Date End Date Xiomara Sapp MD [address] [place] [address] [place] [address] PCP - General Family Medicine 11/16/22 documented as of this encounter
--- OUTSIDE RECORDS SUMMARY | 2024-06-24 23:51 | External Medical Summary | Summary of Care ---
Author Name Unknown Organization [facility] Address [address] [place] [address] Phone [phone] Care Team Providers Care New Grad Rn Name Role Phone Xiomara Sapp MD Primary Care Prov ider Reason for Visit * Reason Comments Outpatient Testing Encounter Details Date Type Department Care Team (Late st Contact Info) Description 03/01/2024 8:30 AM EDT Laboratory Laboratory [address] [place] [phone] [place] [address] Arrived Allergies Active Allergy Reactions Criticality Noted [...] mouth in the morning. 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 Increased risk for hereditary hemochromatosis. S/P hip [...] mRNA, LNP-s, No Pre serve, 2-Dose Series ([employer]) 10/22/2020,10/01/2020 COVID-19, LNP-s, No Preserve , Cordell-sucrose, [...] Description 03/04/2024 9:40 AM EDT Anticoagulation Pharmacy, [address] [place] [address] [place] [address] 03/18/2024 10:40 AM EDT Office Visit Dermatology [address] [place] [address] Maribel Cazares PA-C [address] [place] [address] [place] [address] 03/27/2024 10:45 AM EDT Procedure Only Urology, [facility] 132 [facility] [place] [facility] [place] [address] Bear Craven MD [address] [place] [address] 06/03/2024 11:00 AM EST Office Visit Family [address] [place] [phone] Sheri Carpio CRNP [address] [place] [address] [place] [address] 06/06/2024 10:00 AM EST Office Visit Cardiology, [facility] [address] [place] [address] Iain Ward PA-C [address] [place] [address] Health Maintenance Due Date Last Done Comments [...] Directives occurred with: Not Discussed Care Teams New Grad Rn Relationship Specialty Start Date End Date Xiomara Sapp MD [address] [place] [address] [place] [address] PCP - General Family Medicine 11/16/22 documented as of this encounter
--- OUTSIDE RECORDS SUMMARY | 2024-06-24 23:51 | External Medical Summary | Summary of Care ---
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 Increased risk for hereditary hemochromatosis. S/P hip [...] Description 03/04/2024 9:40 AM EDT Anticoagulation Pharmacy, [address] [place] [address] [place] [address] 03/18/2024 10:40 AM EDT Office Visit Dermatology [address] [place] [address] Maribel Cazares PA-C [address] [place] [address] [place] [address] 03/27/2024 10:45 AM EDT Procedure Only Urology, [facility] [address] [place] [address] Bear Craven MD [address] [place] [address] 06/03/2024 11:00 AM EST Office Visit Family Medicine [address] [place] [phone] Sheri Carpio CRNP [address] [place] [address] [place] [address] 06/06/2024 10:00 AM EST Office Visit Cardiology, [facility] [address] [place] [address] Iain Ward PA-C [address] [place] [address] Health Maintenance Due Date Last Done Comments [...] Directives occurred with: Not Discussed Care Teams Research Asst Relationship Specialty Start Date End Date Jamie García, Xiomara Cherie, MD [address] [place] [address] [place] [phone] PCP - General Family Medicine 11/16/22 documented as of this encounter
--- OUTSIDE RECORDS SUMMARY | 2024-06-24 23:51 | External Medical Summary | Summary of Care ---
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 Increased risk for hereditary hemochromatosis. S/P hip [...] mRNA, LNP-s, No Pre serve, 2-Dose Series ([employer]) 10/22/2020,10/01/2020 COVID-19, LNP-s, No Preserve , Cordell-sucrose, [...] for ages 0-17 years) Not on file 06 /10/2023 Food Insecurity Answer Date Recorded Do you [...] Description 03/04/2024 9:40 AM EDT Anticoagulation Pharmacy, [address] [place] [address] [place] [address] 03/18/2024 10:40 AM EDT Office Visit Dermatology [address] [place] [address] Maribel Cazares PA-C [address] [place] [address] [place] [address] 03/27/2024 10:45 AM EDT Procedure Only Urology, [facility] 132 [facility] [place] [address] Bear Craven MD [address] [place] [address] 06/03/2024 11:00 AM EST Office Visit Family [address] [place] [phone] Sheri Carpio [address] [place] [address] 06/06/2024 10:00 AM EST Office Visit Cardiology, [facility] [address] [place] [address] Iain Ward PA-C 132 [facility] [place] [address] Pending Results Name Type Priority Associated Diagnoses Date /Time CULTURE, URINE, QUANTITATIVE Lab Routine UTI (urinary tract infection) 03/01/2024 8:49 AM EDT Health Maintenance Due Date Last [...] encounter Visit Diagnoses Diagnosis UTI (urinary tract infection) Urinary tract infection, site not specified documented in this encounter Advance Directives * Full Code (Latest Code Status on File) Date Activated Date Inactivated Comments 11/13/2020 4:45 PM 11/14/2020 5:13 PM Question Answer Comments Discussion of Advance Directives occurred with: Not Discussed Care Teams Golf Ball Inspector Relationship Specialty Start Date End Date Xiomara Sapp MD [address] [place] [address] [place] [address] PCP - General Family Medicine 11/16/22 documented as of this encounter
--- OUTSIDE RECORDS SUMMARY | 2024-06-24 23:51 | External Medical Summary | Summary of Care ---
Author Name Unknown Organization [facility] Address [address] [place] [address] Phone [phone] Care Team Providers Care Correctional Substance Abuse Counselor Name Role Phone Xiomara Sapp MD Primary Care Prov ider Reason for Visit * Reason Onset Date Comments Med Request 02/29/2024 Encounter Details Date Type Department Care Team (Late st Contact Info) Description 02/29/2024 Telephone Access Center, [place] [address] [facility] *DO NOT REMOVE THIS DEPARTMENT* [place] [address] Services, Scheduling [address] [place] [address] Med Request Allergies Active Allergy Reactions Criticality [...] thrombosis),Histor y of pulmonary embolism,Anticoagu lation management encounter,assisted current use of anticoagulant therapy [...] 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 Increased risk for hereditary hemochromatosis. S/P [...] mRNA, LNP-s, No Pre serve, 2-Dose Series ([employer]) 10/22/2020,10/01/2020 COVID-19, LNP-s, No Preserve , Cordell-sucrose, [...] encounter Miscellaneous Notes * Addendum Note - Keya Dockery machine heel seat fitter - 03/01/2024 11:04 AM EDT Addended by: KEYA DOCKERY on: 03/01/2024 11:04 AM Modules accepted: Orders * Telephone Encounter - Keya Dockery machine heel seat fitter - 03/01/2024 11:03 AM EDT Please resend Rx to [facility] [id number] Confirmed pharmacy did not receive original prescription. Patient states he is completely out of medication. Pending Prescriptions: Disp Refills Tamsulosin HCl 0.4 MG Oral Capsule (Floma*30 Cap*6 Sig: Take 1 Capsule by mouth in the morning. Signed Prescriptions: Disp Refills Tamsulosin HCl 0.4 MG Oral Capsule (Flomax)30 Cap*6 Sig: Take 1 Capsule by mouth in the morning. Authorizing Provider: BEAR RAINES Last Visit: 02/20/2024 (in office), Visit date not found (telemedicine) 03/27/2024 If no future appointments scheduled, and last appointment is greater than a year ago, please schedule patient for a follow-up appointment Last date the medication was ordered: 02/29/2024 Patient Phone Numbers Labs: Lab Results Component Value Date/Time CREAT 1.0 02/21/2024 10:50 AM CREAT 1.0 02/28/2020 11:08 AM POTASSIUM 4.7 02/21/2024 10:50 AM POTASSIUM 4.8 02/28/2020 11:08 AM TSH 2.41 12/06/2023 08:16 AM TSH 2.11 04/27/2018 10:30 AM LDL 111 05/29/2023 08:01 AM LDL 52 09/11/2019 07:44 AM LDLCALC 66 05/23/2012 12:00 AM ALT 16 02/21/2024 10:50 AM ALT 27 02/28/2020 11:08 AM HGBA1C 5.2 02/10/2017 01:37 PM * Addendum Note - Bear Raines MD - 02/29/2024 3:19 PM EDTAddended by: BEAR RAINES on: 02/29/2024 03:19 PM Modules accepted: Orders * Addendum Note - Alisa Bowden LPN - 02/29/2024 2:45 PM EDTAddended by: ALISA BOWDEN on: 02/29/2024 02:45 PM Modules accepted: Orders * Telephone Encounter - Alisa Bowden LPN - 02/29/2024 2:44 PM EDT Refill of tamsulosin requested. Last appt: 01/31/2024 Next appt: 03/27/2024 Review of patient's allergies indicates: Allergen Reactions Sulfa Antibiotics Unknown reaction Vancomycin Other reaction(s): red, itchy Other reaction(s): red, itchy Thank you, Kristen * Telephone Encounter - Magda Rutherford OSA - 02/29/2024 9:07 AM EDT Patient needs refill on his tamsulosin sent to [facility] pharmacy in [place] documented in this encounter Plan of Treatment Upcoming Encounters Date Type Department Care Team (Late st Contact Info) Description 03/04/2024 9:40 AM EDT Anticoagulation Pharmacy, [address] [place] [address] [place] [address] 03/18/2024 10:40 AM EDT Office Visit Dermatology [address] [place] [address] Maribel Cazares PA-C [address] [place] [address] [place] [address] 03/27/2024 10:45 AM EDT Procedure Only Urology, [facility] 132 [facility] [place] [address] Bear Raines MD [address] [place] [address] 06/03/2024 11:00 AM EST Office Visit Family Medicine [address] [place] [phone] Sheri Carpio [address] [place] [address] 06/06/2024 10:00 AM EST Office Visit Cardiology, [facility] [address] [place] [address] Iain Ward PA-C [address] [place] [address] Health Maintenance Due Date Last Done Comments [...] 02/20/2025 02/21/2024, 1209/2022, 04/27/2023, Additional history exists Albumin/Creatinine Ratio 04/27/2025 [...] Directives occurred with: Not Discussed Care Teams Correctional Substance Abuse Counselor Relationship Specialty Start Date End Date Xiomara Sapp MD [address] [place] [address] [place] [address] PCP - General Family Medicine 11/16/22 documented as of this encounter
--- OUTSIDE RECORDS SUMMARY | 2024-06-24 23:51 | External Medical Summary | Summary of Care ---
Author Name Unknown Organization [facility] Address [address] [place] [address] Phone [phone] Care Team Providers Care Alignment Mechanic Name Role Phone Xiomara Sapp MD Primary Care Prov ider Reason for Visit * Reason Onset Date Comments Med Request 02/29/2024 Encounter Details Date Type Department Care Team (Late st Contact Info) Description 02/29/2024 Telephone Access Center, [place] 100 [address] [facility] *DO NOT REMOVE THIS DEPARTMENT* [place] [address] Services, Scheduling [address] [place] [address] Med Request Allergies Active Allergy Reactions Criticality [...] y of pulmonary embolism,Anticoagu lation management encounter,senior living current use of anticoagulant therapy take 7.5mg [...] 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 Increased risk for hereditary hemochromatosis. S/P hip [...] mRNA, LNP-s, No Pre serve, 2-Dose Series ([employer]) 10/22/2020,10/01/2020 COVID-19, LNP-s, No Preserve , Cordell-sucrose, [...] encounter Miscellaneous Notes * Telephone Encounter - Chasidy Carpenter RPh - 03/01/2024 11:08 AM EDT Will start anther telephone encounter with corrected encounter department so rx will transmit. Department: Urology, [facility] Ordering/Authorizing: Bear Raines Thank you, Chasidy Carpenter RPh Clinical Pharmacist Centralized [facility] Pharmacy Services ([facility]PS) 03/01/24 11:08 AM [phone] * Addendum Note - Keya Squires laborer adjustable steel joist - 03/01/2024 11:04 AM EDT Addended by: KEYA SQUIRES on: 03/01/2024 11:04 AM Modules accepted: Orders * Telephone Encounter - Keya Squires PHARM Tech - 03/01/2024 11:03 AM EDT Please resend Rx to [id number] [address] [facility]. Confirmed pharmacy did not receive original prescription. [...] red, itchy Other reaction(s): red, itchy Thank Kristen valladares * Telephone Encounter - Magda Rutherford OSA - 02/29/2024 9:07 AM EDT Patient needs refill on his tamsulosin sent to [facility] pharmacy in [place] documented in this encounter Plan of Treatment Upcoming Encounters Date Type Department Care Team (Late st Contact Info) Description 03/04/2024 9:40 AM EDT Anticoagulation Pharmacy, [address] [place] [address] [place] [address] 03/18/2024 10:40 AM EDT Office Visit Dermatology [address] [place] [address] Maribel Cazares PA-C [address] [place] [address] [place] [address] 03/27/2024 10:45 AM EDT Procedure Only Urology, [facility] [address] [place] [address] Bear Raines MD [address] [place] [address] 06/03/2024 11:00 AM EST Office Visit Family Medicine [address] [place] [phone] Sheri Carpio CRNP [address] [place] [address] [place] [address] 06/06/2024 10:00 AM EST Office Visit Cardiology, [facility] [address] [place] [address] Iain Ward PA-C [address] [place] [address] Health Maintenance Due Date Last Done Comments [...] Directives occurred with: Not Discussed Care Teams Alignment Mechanic Relationship Specialty Start Date End Date Xiomara Sapp MD [address] [place] [address] [place] [address] PCP - General Family Medicine 11/16/22 documented as of this encounter
--- OUTSIDE RECORDS SUMMARY | 2024-06-24 23:51 | External Medical Summary | Summary of Care ---
Author Name Unknown Organization [facility] Address [address] [place] [address] Phone [phone] Care Team Providers Care Equipment Tech Name Role Phone Xiomara Sapp MD Primary Care Prov ider Reason for Visit * Reason Onset Date Comments Advice 02/29/2024 Encounter Details Date Type Department Care Team (Late st Contact Info) Description 02/29/2024 Telephone Access Center, [place] 100 [address] [facility] *DO NOT REMOVE THIS DEPARTMENT* [place] [address] Services, Scheduling [address] [place] [address] Advice Allergies Active Allergy Reactions Criticality Noted [...] thrombosis),Histor y of pulmonary embolism,Anticoagu lation management encounter,[facility] current use of anticoagulant therapy take 7.5mg [...] 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 Increased risk for hereditary hemochromatosis. S/P [...] mRNA, LNP-s, No Pre serve, 2-Dose Series ([employer]) 10/22/2020,10/01/2020 COVID-19, LNP-s, No Preserve , Cordell-sucrose, [...] accepted: Orders * Addendum Note - Alisa Rosales LPN - 02/29/2024 2:45 PM EDTAddended by: ALISA ROSALES on: 02/29/2024 02:45 PM Modules accepted: Orders * Telephone Encounter - Alisa Rosales LPN - 02/29/2024 2:44 PM EDT Refill of tamsulosin requested. Last appt: 01/31/2024 Next appt: 03/27/2024 Review of patient's allergies indicates: Allergen Reactions Sulfa Antibiotics Unknown reaction Vancomycin Other reaction(s): red, itchy Other reaction(s): red, itchy Thank you, Kristen * Telephone Encounter - Magda Rutherford OSA - 02/29/2024 9:07 AM EDT Patient needs refill on his tamsulosin sent to [facility] in [place] documented in this encounter Plan of Treatment Upcoming Encounters Date Type Department Care Team (Late st Contact Info) Description 03/04/2024 9:40 AM EDT Anticoagulation Pharmacy, [address] [place] [address] [place] [address] 03/18/2024 10:40 AM EDT Office Visit Dermatology [address] [place] [address] Maribel Cazares PA-C [address] [place] [address] [place] [address] 03/27/2024 10:45 AM EDT Procedure Only Urology, [facility] 132 [facility] [place] [address] Bear Raines MD 27 [place] [id number] 06/03/2024 11:00 AM EST Office Visit Family Medicine [address] [place] [phone] [place] [address] 06/06/2024 10:00 AM EST Office Visit Cardiology, [facility] [address] [place] [address] Iain Ward PA-C [address] [place] [address] Health Maintenance Due Date Last Done Comments [...] Completed 01/27/2015, 08/17/2012 Zoster Vaccines Completed 12/21/2019, 090 12/2017, 06/23/2015 RETIRED - COLONOSCOPY-EVERY 5 YRS [...] Directives occurred with: Not Discussed Care Teams Equipment Tech Relationship Specialty Start Date End Date Xiomara Sapp MD [address] [place] [address] [place] [address] PCP - General Family Medicine 11/16/22 documented as of this encounter
--- OUTSIDE RECORDS SUMMARY | 2024-06-24 23:51 | External Medical Summary | Summary of Care ---
Author Name Unknown Organization [facility] Address [address] [place] [address] Phone [phone] Care Team Providers Care Heat And Frost Insulator Name Role Phone Xiomara Sapp MD Primary Care Prov ider Reason for Visit * Reason Onset Date Comments Advice 02/29/2024 Encounter Details Date Type Department Care Team (Late st Contact Info) Description 02/29/2024 Telephone Access Center, [place] 100 [address] [facility] *DO NOT REMOVE THIS DEPARTMENT* [place] [address] Services, Scheduling [address] [place] [address] Advice Allergies Active Allergy Reactions Criticality Noted [...] vein thrombosis),History of pulmonary embolism,Anticoagul ation management encounter,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 Increased risk for hereditary hemochromatosis. S/P hip [...] encounter Miscellaneous Notes * Addendum Note - Alisa Rosales LPN [...] needs refill on his tamsulosin sent to [facility] pharmacy in [place] documented in this encounter Plan of Treatment Upcoming Encounters Date Type Department Care Team (Late st Contact Info) Description 03/04/2024 9:40 AM EDT Anticoagulation Pharmacy, [address] [place] [address] [place] [address] 03/18/2024 10:40 AM EDT Office Visit Dermatology [address] [place] [address] Maribel Cazares PA-C [address] [place] [address] [place] [address] 03/27/2024 10:45 AM EDT Procedure Only Urology, [address] [place] [address] Bear Craven MD [address] [place] [address] 06/03/2024 11:00 AM EST Office Visit Family Medicine [address] [place] [phone] Sheri Carpio CRNP [address] [place] [address] [place] [address] 06/06/2024 10:00 AM EST Office Visit Cardiology, [address] [place] [address] Iain Ward PA-C [address] [place] [address] Health Maintenance Due Date Last Done Comments [...] Directives occurred with: Not Discussed Care Teams Heat And Frost Insulator Relationship Specialty Start Date End Date Xiomara Sapp MD [address] [place] [address] [place] [phone] PCP - General Family Medicine 11/16/22 documented as of this encounter
--- OUTSIDE RECORDS SUMMARY | 2024-06-24 23:51 | External Medical Summary ---
Author Name Unknown Address Unknown Organization K01:[facility] [place] [address] [facility] [address] Laboratory Report Ordering Provider Test Date Status LUKASZ JOHNSON 03/01/2024 08:49:48 Final <10,000 colonies/ml mixed no rmal hetal Observation Date Value Abnormality Reference (Units ) Status Bacteria identified in Specimen by Culture 03/01/2024 08:49:48 [id number]^ESCHE RICHIA COLI Abnormal Final >100,000 colonies/mL Escheri lauren coli Performing Location [facility] [address] [facility] [address] Ordering Provider Test Date Status LUKASZ JOHNSON 03/01/2024 08:49:48 Final Observation Date Value Abnormality Reference (Units ) Status Ampicillin 03/01/2024 08:49:48 <=2 Susceptible Final Cefazolin 03/01/2024 08:49:48 <=4 Susceptible Final Cefepime susceptibility 03/01/2024 08:49:48 <=1 Susceptible Final Ceftriaxone suceptibility 03/01/2024 08:49:48 <=1 Susceptible Final Ciprofloxacin 03/01/2024 08:49:48 <=0.25 Susceptible Final Due to serious side effects, the FDA has advised against using Ciprofloxacin to treat uncomplicated UTIs and respiratory tract infections unless there are no alternative treatment options. Gentamicin susceptibility 03/01/2024 08:49:48 <=1 Susc eptible Final Nitrofurantoin susceptibility 03/01/2024 08:49:48 <=16 Susceptible Final Piperacillin + Tazobactamsusceptibility 03/01/2024 08:49:48 <=4 Susceptible Final TMP-SMZ susceptibility 03/01/2024 08:49:48 <=20 Suscept ible Final Test: Culture, Urine, Quanti tative
Specimen Source: Urine, Clean Catch
Specimen Type: Urine
Specimen Date: 03/01/2024 0849
Result Date: 03/03/202418
Result Status: Final result
Abnormal: Yes
Resulting Lab: [facility]
[address] [facility] [address]

CULTURE

>100,000 colonies/mL Escherichia coli (Abnormal)

<10,000 colonies/ml mixed normal hetal

SUSCEPTIBILITY

Escherichia coli
METHOD MICROBROTH
DILUTIONS

AMPICILLIN [...] alternative treatment options.

null Performing Location [facility] [place] [address] [facility] [address]
--- OUTSIDE RECORDS SUMMARY | 2024-06-24 23:51 | External Medical Summary | Summary of Care ---
Author Name Unknown Organization [facility] Address [address] [place] [address] Phone [phone] Care Team Providers Care Strategy Planning Consultant Name Role Phone Xiomara Sapp MD Primary Care Prov ider Reason for Visit * Reason Onset Date Comments Medication Refill 03/01/2024 Encounter Details Date Type Department Care Team (Late st Contact Info) Description 03/01/2024 Telephone Urology, [facility] [address] [facility] [place] [address] Bear Craven MD [address] [place] [address] Medication Refill Allergies Active Allergy Reactions Criticality Noted Date [...] thrombosis),Histor y of pulmonary embolism,Anticoagu lation management encounter,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 Do all this for 7 days. With food until gone. 14 Capsule 4 03/08/20 24 Active Tamsulosin HCl 0.4 MG Oral Capsule (Flomax) Take 1 Capsule by mouth in the morning. 30 Capsule 6 4 Active Tamsulosin HCl 0.4 MG Oral Capsule (Flomax) Take 1 Capsule by mouth in the morning. 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 Increased risk for hereditary hemochromatosis. S/P hip [...] mRNA, LNP-s, No Pre serve, 2-Dose Series ([employer]) 10/22/2020,10/01/2020 COVID-19, LNP-s, No Preserve , Cordell-sucrose, Ages 12+ ([employer]) 08/03/2021 Pneumococcal Conjugate Vacc, 13 Valent (Prevnar) [...] Notes * Telephone Encounter - Chasidy Carpenter [facility] - 03/01/2024 11:11 AM EDT Expand All Collapse All Please resend Rx to [id number] Confirmed pharmacy did not receive original prescription. Patient states he is completely out of medication. Encounter dept corrected and will resend Thank you, Chasidy Carpenter [facility] Clinical Pharmacist Centralized Clinical Pharmacy Services (CCPS) 03/01/24 11:12 AM [phone] documented in this encounter Plan of Treatment Upcoming Encounters Date Type Department Care Team (Late st Contact Info) Description 03/04/2024 9:40 AM EDT Anticoagulation Pharmacy, [address] [place] [address] [place] [address] 03/18/2024 10:40 AM EDT Office Visit Dermatology [address] [place] [address] Maribel Cazares PA-C [address] [place] [address] [place] [address] 03/27/2024 10:45 AM EDT Procedure Only Urology, [facility] 132 [facility] [place] [address] Bear Craven MD [address] [place] [address] 06/03/2024 11:00 AM EST Office Visit Family Medicine [address] [place] [phone] Sheri Carpio CRNP [address] [place] [address] [place] [address] 06/06/2024 10:00 AM EST Office Visit Cardiology, [address] [place] [address] Iain Ward PA-C [address] [place] [address] Health Maintenance Due Date Last Done Comments [...] Directives occurred with: Not Discussed Care Teams Strategy Planning Consultant Relationship Specialty Start Date End Date Xiomara Sapp MD [address] [place] [address] [place] [phone] PCP - General Family Medicine 11/16/22 documented as of this encounter
--- OUTSIDE RECORDS SUMMARY | 2024-06-24 23:51 | External Medical Summary | Summary of Care ---
Author Name Unknown Organization [facility] Address [address] [place] [address] Phone [phone] Care Team Providers Care Library Technician Name Role Phone Xiomara Sapp MD Primary Care Prov ider Reason for Visit * Reason Onset Date Comments Advice 02/27/2024 Encounter Details Date Type Department Care Team (Late st Contact Info) Description 02/27/2024 Telephone Family Medicine [address] [phone] Xiomara Sapp MD [address] [place] [address] Advice Allergies Active Allergy Reactions Criticality [...] vein thrombosis),History of pulmonary embolism,Anticoagul ation management encounter,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 Increased risk for hereditary hemochromatosis. S/P hip [...] mRNA, LNP-s, No Pre serve, 2-Dose Series (Access[employer]) 10/22/2020,10/01/2020 COVID-19, LNP-s, No Preserve , Cordell-sucrose, [...] I have sent prescription for Macrobid to [facility] for him to start today - [...] Description 03/04/2024 9:40 AM EDT Anticoagulation Pharmacy, [address] [place] [address] [place] [address] 03/18/2024 10:40 AM EDT Office Visit Dermatology [address] [place] [address] Maribel Cazares PA-C [address] [place] [address] [place] [address] 03/27/2024 10:45 AM EDT Procedure Only Urology, [facility] [address] [facility] [place] [address] Bear Craven MD [address] [place] [address] 06/03/2024 11:00 AM EST Office Visit Family Medicine [address] [place] [phone] [address] Carp[address] [place] [address] 06/06/2024 10:00 AM EST Office Visit Cardiology, [facility] [address] [place] [address] Iain Ward PA-C 132 [facility] [place] [address] Pending Results Name Type Priority Associated Diagnoses [...] Directives occurred with: Not Discussed Care Teams Library Technician Relationship Specialty Start Date End Date Xiomara Sapp MD [address] [place] [address] [place] [phone] PCP - General Family Medicine 11/16/22 documented as of this encounter
--- OUTSIDE RECORDS SUMMARY | 2024-06-24 23:51 | External Medical Summary | Summary of Care ---
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 Increased risk for hereditary hemochromatosis. S/P hip [...] mRNA, LNP-s, No Pre serve, 2-Dose Series ([employer]) 10/22/2020,10/01/2020 COVID-19, LNP-s, No Preserve , Cordell-sucrose, [...] Description 03/04/2024 9:40 AM EDT Anticoagulation Pharmacy, [address] [place] [address] [place] [address] 03/18/2024 10:40 AM EDT Office Visit Dermatology [address] [place] [address] Maribel Cazares PA-C [address] [place] [address] [place] [address] 03/27/2024 10:45 AM EDT Procedure Only Urology, [facility] 132 [facility] [place] [address] Bear Craven MD 27 [place] [address] 06/03/2024 11:00 AM EST Office Visit Family [address] [place] [phone] Sheri Carpio CRNP [address] [place] [address] [place] [address] 06/06/2024 10:00 AM EST Office Visit Cardiology, [facility] [address] [place] [address] Iain Ward PA-C [address] [place] [address] Health Maintenance Due Date Last Done Comments [...] Directives occurred with: Not Discussed Care Teams Public Area Supervisor Relationship Specialty Start Date End Date Xiomara Sapp MD [address] [place] [address] [place] [address] PCP - General Family Medicine 11/16/22 documented as of this encounter
--- OUTSIDE RECORDS SUMMARY | 2024-06-24 23:52 | External Medical Summary ---
Author Name Unknown Address Unknown Organization K01:LABORATORY [facility] [place] - [address] [address] Laboratory Report Ordering Provider Test Date Status LUKASZ JOHNSON 02/21/2024 10:50:59 Final Observation Date Value Abnormality Reference (Units ) Status Albumin 02/21/2024 10:50:59 3.9 3.8-5.0 (g/dL) Final AST (Aspartate aminotransferase) 02/21/2024 10:50:59 19 10-50 (U/L) Final Alk Phos 02/21/2024 10:50:59 80 35-130 (U/L) Final ALT (Alanine aminotransferase) 02/21/2024 10:50:59 16 10-50 (U/L) Final Bilirubin, Total 02/21/2024 10:50:59 0.3 <=1.2 (mg/dL) Final Bilirubin, Direct 02/21/2024 10:50:59 <0.2 0.0-0.3 (mg/dL) Final Protein 02/21/2024 10:50:59 5.5 Below low normal 6.0-8.3 (g/dL) Final Performing Location LABORATORY [facility] - [address] [place] [address]
--- OUTSIDE RECORDS SUMMARY | 2024-06-24 23:52 | External Medical Summary ---
Author Name Unknown Address Unknown Organization : Laboratory Report Ordering Provider Test Date Status ENZO COTO 02/19/2024 09:46:58 Final Therapeutic ranges for non-o perative patients:
Prophylaxsis/treatment of DVT: (Range:2.0-3.0)
Treatment of pulmonary embolism:(Range:2.0-3.0)
Prevention of systemic embolism from:
-tissue heart valves
-acute myocardial infarction
-valvular heart disease
-atrial fibrillation
(Range: 2.0-3.0)
Mechanical prosthetic valves: (Range: 2.5-3.5) Observation Date Value Abnormality Reference (Units ) Status INR in Capillary blood by Coagulation assay 02/19/2024 09:46:58 1.7 (INR) Final Performing Location
--- OUTSIDE RECORDS SUMMARY | 2024-06-24 23:52 | External Medical Summary | Summary of Care ---
Author Name Unknown Organization [facility] Address [address] [place] [address] Phone [phone] Care Team Providers Care Bookkeeping Machine Operator Name Role Phone Xiomara Sapp MD Primary Care Prov ider Reason for Visit * Reason Comments Follow Up Encounter Details Date Type Department Care Team (Late st Contact Info) Description 02/20/2024 2:00 PM EDT Office Visit Urology Herb Montejo [address] [place] [address] Bear Craven MD 27 [place] [address] BPH with urinary obstruction*; Dysuria; Detrusor areflexia Allergies Active Allergy Reactions Criticality Noted Date Comments Sulfa Antibiotics 10/16/2003 Unknown reaction Vancomycin Low 06/17/2022 Other reaction(s): red, itchy Other reaction(s): red, itchy documented as of this encounter (statuses as of 02/20/2024) Medications Medication Sig Dispensed Refills Start Date [...] as of this encounter (statuses as of 02/20/2024) Active Problems Problem Noted Date Diagnosed Date [...] 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 Increased risk for hereditary hemochromatosis. S/P hip [...] as of this encounter (statuses as of 02/20/2024) Resolved Problems Problem Noted Date Diagnosed Date [...] as of this encounter (statuses as of 02/20/2024) Immunizations Name Administration Dates Next Due COVID-19 mRNA, LNP-s, No Pre serve, 2-Dose Series ([employer]) 10/22/2020,10/01/2020 COVID-19, LNP-s, No Preserve , Cordell-sucrose, [...] lent, No Preserve, IM 04/04/2016,06/09/2015 Seasonal Influenza, Split, I IV3, With Preserve, Inj 03/25/2014,04/02/2013,06/11/2012 TDAP (age 10 and older)(Boostrix) 05/12/2017 [...] Progress Notes * Bear Craven MD - 02/20/2024 2:55 PM EDT [id number] PCP: XIOMARA SAPP [address] [place] [address] Raghavendra Gramajo is a 83 year old male, who presents for follow-up of difficulties with urinary retention. Patient's past notes and cystoscopy 6 months ago are reviewed. Scanned ER visit is noted. Weight loss is noted, pending PMD visit tomorrow. BPH: Patient is being seen for BPH today. He has had the following symptoms: slow stream, inability to urinate, and need for catheter placement. Severity is high. He has tried tamsulosin and finasteride. He has previously had TURP done October 2020. Cystoscopy done July 2023, minimal regrowth at TUR fossa. Problem has been present for years. Problem is getting better. Christian placed January 2024 for retention via ER. Creatinine Results: Lab Results Component Value Date/Time CREATININE - [facility] 1.0 05/29/2023 08:01 AM CREATININE - [facility] 1.1 04/27/2023 09:53 AM CREATININE - [facility] 1.0 11/17/2022 08:52 AM CREATININE - [facility] 1.0 02/28/2020 11:08 AM CREATININE - [facility] 1.0 05/31/2019 09:38 AM CREATININE - [facility] 1.0 03/01/2019 10:05 AM CREATININE, RANDOM URINE - [facility] 55 04/27/2022 12:25 PM CREATININE-OUTSIDE LAB 0.93 10/14/2018 12:00 AM CREATININE-OUTSIDE LAB 0.95 07/31/2017 12:00 AM CREATININE-OUTSIDE LAB 0.97 05/06/2017 12:00 AM Current Outpatient Medications Medication Sig Dispense Refill Tamsulosin HCl 0.4 MG Oral Capsule (Flomax) Take 1 Capsule by mouth in the morning. 30 Capsule 6 Finasteride 5 MG Oral Tablet (Proscar) Take 1 Tablet by mouth in the morning. 90 Tablet 3 VITAMIN D3 5000 UNITS PO CAPS 1 [...] in each nostril daily 48 g 1 No current facility-administered medications for this visit. [...] No Refillable Tank No Pre-filled Pod No Family History Problem Relation Name Age of Onset Heart Disorder Father 48 of [place] @ 48 Cancer Brother urethra Hypertension Brother Neurological Disorder Brother parkinson's Thyroid Disorder Daughter Thyroid Disorder Son Past Surgical History: Procedure Laterality Date COLONOSCOPY 2010; 08/2011 [facility]--repeated 2011--polyps (tubulovillous) COLONOSCOPY, DIAGNOSTIC (RECTUM) 08/25/2016 adenomatous & hyperplastic polyps, diverticulosis, repeat 5 yrs/[facility] COLONOSCOPY, DIAGNOSTIC (RECTUM) 01/27/2022 diverticulosis / [facility] CT CHEST W CONTRAST 05/23/2012 PE in left lingular pulmonary artery CT HEAD/BRAIN 05/23/2012 no acute findings ECHO (2-D COMPLETE) 05/24/2012 normal EGD, FLEXIBLE, DIAGNOSTIC 10/02/2018 reflux esophagitis/[facility] KNEE ARTHROSCOPY/ARTHROPLASTY 1960 left knee LAPAROSCOPY; CHOLECYSTECTOMY 10/03/[address] [facility] [address] Wasserman LUMBAR / SACRAL EPIDURAL, SINGLE LEVEL Right 12/20/2016 Dr Mata, L3-4 on right. MRI L SPINE WO CONTRAST 12/18/2016 multilevel degenerative and postoperative changes OTHER (INFORMATION) 1973/1985/1988/1992/1997 back surgeries x 5 REMOVAL OF NOSE POLYP(S), SIMPLE REMOVAL OF PROSTATE (TURP) N/A 11/13/2020 TRANSURETHRAL RESECTION PROSTATE ELECTROSURGICAL performed by Alessio Santamaria MD at [place] [facility] [place] REMOVE LUMBAR SPINE LAMINA, 3+ SEGS 01/26/2017 L2-4 lumbar laminectomy; Dr. Blake TOTAL HIP REPLACEMENT & PROSTHESIS Right 08/26/2017 Dr. Paez [facility] DUPLEX CAROTID BILAT 05/23/2012 no stenosis [...] retention Constitutional: (-) fever and (-) chills Male : see HPI Musculoskeletal: (+) knee pain/problems Neurology: (+) loss of balance Psychiatry: (-) negative: no depression or anxiety Physical Exam Nursing note reviewed. Constitutional: General: He is not in acute distress. Appearance: He is not ill-appearing or toxic-appearing. Comments: Using cane HENT: Head: Normocephalic and atraumatic. Right Ear: External ear normal. Left Ear: External ear normal. Nose: Nose normal. Mouth/Throat: Mouth: Mucous membranes are moist. Eyes: Extraocular Movements: Extraocular movements intact. Cardiovascular: Pulses: Normal pulses. Pulmonary: Effort: Pulmonary effort is normal. No respiratory distress. Abdominal: Palpations: Abdomen is soft. Skin: Coloration: Skin is not pale. Neurological: Mental Status: He is oriented to person, place, and time. Motor: Weakness present. Gait: Gait abnormal. Psychiatric: Behavior: Behavior normal. Thought Content: Thought content normal. 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 Findings reviewed with the patient. It would seem that his ability to tolerate his elevated PVR hascome to an end. His options include CIC, most preferable option, suprapubic tube placement, 2nd most preferable option, and chronic Christian catheter per urethra, least preferable option. He is willing to consider resumption of CIC, will start 4-5 times a day. Will arrange for nursing visit for CIC reinstruction. Above content is personally reviewed. Patient vocalizes good understanding of the treatment plan. Keep visit as scheduled for cystoscopy to evaluate response to therapy. Bear Craven MD 2:55 PM 02/20/2024 documented in this encounter Nursing Notes * Ce Stanford LPN - 02/20/2024 2:39 PM EDT Chief Complaint Patient presents with Follow Up Pt presents for retention. Pt was seem at the [facility] ED for retention and christian was placed. Pt was given christian to CIC at home. Pt was not able to go upon waking and preformed CIC and a large amount of urine came out. Pt is scheduled for cysto in March in [facility]. Taking finasteride and flomax PSA Results: Lab Results Component Value Date/Time PSA - [facility] 0.90 10/22/2021 07:48 AM PSA - [facility] 0.91 09/26/2019 08:17 AM PSA - [facility] 0.69 05/28/2010 08:19 AM PSA - [facility] 0.60 06/03/2009 08:51 AM PSA SCREENING 0.67 01/22/2014 09:09 AM PSA SCREENING 0.68 10/16/2012 12:10 PM PSA SCREENING 0.75 10/04/2011 08:30 AM documented in this encounter Miscellaneous Notes * Addendum Note - Bear Craven MD - 02/20/2024 3:04 PM EDTAddended by: BEAR CRAVEN on: 02/20/2024 03:04 PM Modules accepted: Level of Service documented in this encounter Plan of Treatment Upcoming Encounters Date Type Department Care Team (Late st Contact Info) Description 02/21/2024 9:40 AM EDT Office Visit Family Medicine [address] [place] [phone] Xiomara Sapp MD [address] [place] [address] [place] [address] 02/23/2024 2:30 PM EDT Cardiac Studies Cardiac Studies, [address] [place] [address] 03/04/2024 9:40 AM EDT Anticoagulation Pharmacy, [address] [place] [address] [place] [address] 03/18/2024 10:40 AM EDT Office Visit Dermatology [address] [place] [address] Maribel Cazares PA-C [address] [place] [address] [place] [address] 03/27/2024 10:45 AM EDT Procedure Only Urology, [facility] [address] [place] [address] Bear Craven MD 27 [place] [address] 06/03/2024 11:00 AM EST Office Visit Family Medicine [address] [place] [phone] Sheri Carpio [address] [place] [address] 06/06/2024 10:00 AM EST Office Visit Cardiology, [facility] 132 [facility] [place] [address] Iain Ward PA-C [address] [place] [address] Scheduled Orders Name Type Priority Associated Diagnoses Orde r Schedule BASIC METABOLIC PANEL Lab Routine BPH with urinary obstruction Dysuria Detrusor areflexia Expected: 02/20/2024, Expires: 02/19/2025 Health Maintenance Due Date Last Done Comments Adult Wellness Visit 06/09/2016 06/09/2015 COVID-19 Vaccine ( season) 2023 08/03/2021, 10/22/2020, 10/01/2020 Influenza Vaccine (FLU shot) (#1) 2024 03/10/2023, 03/28/2022, 03/12/2021, Additional history exists GFR 05/29/2024 05/29/2023, 110 07/2022, 11/17/2022, Additional history exists Fasting Serum Ferritin Hereditary Hemochromatosis (HFE) Annual,All Ages 10/11/2024 10/12/2023, 05/29/2023, 02/09/2023, Additional history exists Transferrin Saturation Hereditary Hemochromatosis (HFE) Annual,All Ages 10/11/2024 10/12/2023, 05/29/2023, 02/09/2023, Additional history exists Depression Screening 11/28/2024 11/29/2023 DIG LEVEL FOR MEDICATION MONITORING YEARLY 12/05/2024 12/06/2023, 11/17/2022, 10/22/2021, Additional history exists Albumin/Creatinine Ratio 04/27/2025 04/27/2022 [...] and other lower urinary tract symptoms (LUTS) Dysuria Detrusor areflexia Atony of bladder documented in this encounter Advance Directives * Full Code (Latest Code Status on File) Date Activated Date Inactivated Comments 11/13/2020 4:45 PM 11/14/2020 5:13 PM Question Answer Comments Discussion of Advance Directives occurred with: Not Discussed Care Teams Bookkeeping Machine Operator Relationship Specialty Start Date End Date Xiomara Sapp MD [address] [place] [address] [place] [address] PCP - General Family Medicine 11/16/22 documented as of this encounter
--- OUTSIDE RECORDS SUMMARY | 2024-06-24 23:52 | External Medical Summary ---
Author Name Unknown Address Unknown Organization K01:LABORATORY [facility] [place] - [address] [facility] [id number] Laboratory Report Ordering Provider Test Date Status LUKASZ JOHNSON 02/21/2024 10:50:59 Final Observation Date Value Abnormality Reference (Units ) Status WBC, Total 02/21/2024 10:50:59 5.74 4.00-10.8 0 (K/uL) Final RBC 02/21/2024 10:50:59 4.31 4.50-5.25 (M/uL) Final Hemoglobin 02/21/2024 10:50:59 13.4 Below low normal 14 .0-16.8 (g/dL) Final Anemia reflex testing trigge rs on a HGB < 12.0 for Females and HGB < 13.0 for Males in accordance with the WHO Anemia Guidelines
Anemia reflex testing triggers on a HGB < 12.0 for Females and HGB < 13.0 for Males in accordance with the WHO Anemia Guidelines HCT 02/21/2024 10:50:59 40.8 40.0-48.4 (%) Final MCV 02/21/2024 10:50:59 94.7 82.0-99.5 (fL) Final MCH 02/21/2024 10:50:59 31.1 27.0-34.0 (pg) Final MCHC 02/21/2024 10:50:59 32.8 32.0-36.0 (g/dL) Final RDW 02/21/2024 10:50:59 13.0 11.5-15.5 (%) Final Platelets 02/21/2024 10:50:59 131 Below low normal 140 -400 (K/uL) Final MPV 02/21/2024 10:50:59 10.1 6.6-11.1 ( fL) Final Nucleated erythrocytes/100 leukocytes [Ratio] in Blood by Automated count 02/21/2024 10:50:59 0 <=0 (/100 WBCs) Final Performing Location LABORATORY [facility] - [address] [facility] [address]
--- OUTSIDE RECORDS SUMMARY | 2024-06-24 23:52 | External Medical Summary ---
Author Name Unknown Address Unknown Organization K01:LABORATORY [facility] - [address] [facility] [address] Laboratory Report Ordering Provider Test Date Status LUKASZ JOHNSON 02/21/2024 10:38:41 Final Observation Date Value Abnormality Reference (Units ) Status Color of Urine by Auto 02/21/2024 10:38:41 Yellow Colorless, Light Yellow, Yellow, Dark Yellow Final Clarity, Urine 02/21/2024 10:38:41 Slightly Cloudy Abnormal Clear Final Glucose [Mass/volume] in Urine by Automated test strip 02/21/2024 10:38:41 Negative Negative (mg/dL) Final Bilirubin.total [Presence] in Urine by Automated test strip 02/21/2024 10:38:41 Negative Negative Final Ketones [Mass/volume] in Urine by Automated test strip 02/21/2024 10:38:41 Negative Negative (mg/dL) Final Specific gravity, Urine 02/21/2024 10:38:41 1.016 1.003-1.030 Final Hemoglobin [Presence] in Urine by Automated test strip 02/21/2024 10:38:41 Large Abnormal Negative Final pH, Urine 02/21/2024 10:38:41 6.0 5.0-7.5 (Units) Final Protein [Mass/volume] in Urine by Automated test strip 02/21/2024 10:38:41 30 Abnormal Negative (mg/dL) Final Urobilinogen [Mass/volume] in Urine by Automated test strip 02/21/2024 10:38:41 Normal Normal (mg/dL) Final Nitrite [Presence] in Urine by Automated test strip 02/21/2024 10:38:41 Negative Negative Final Leukocyte esterase [Presence] in Urine by Automated test strip 02/21/2024 10:38:41 Large Abnormal Negative Final RBC, Urine 02/21/2024 10:38:41 30-49 Abnormal 0-2 (/HPF) Final WBC, Urine 02/21/2024 10:38:41 50+ Abnormal 0-2 (/HPF) Final Bacteria [#/area] in Urine sediment by Microscopy high power field 02/21/2024 10:38:41 51-100 Abnormal 0-25 (/HPF) Final Performing Location LABOR[facility]ORY [facility] - [facility] [address] [facility] [address]
--- OUTSIDE RECORDS SUMMARY | 2024-06-24 23:52 | External Medical Summary | Summary of Care ---
Author Name Unknown Organization [facility] Address [address] [place] [address] Phone [phone] Care Team Providers Care Fly Maker Name Role Phone Xiomara Sapp MD Primary Care Prov ider Encounter Details Date Type Department Care Team (Late st Contact Info) Description 02/16/2024 Telephone Urology, [facility] 132 [facility] [place] [id number] Johanne Calvo LPN Allergies Active Allergy Reactions Criticality Noted Date Comments Sulfa Antibiotics 10/16/2003 Unknown reaction Vancomycin Low 06/17/2022 Other reaction(s): red, itchy Other reaction(s): red, itchy documented as of this encounter (statuses as of 02/16/2024) Medications Medication Sig Dispensed Refills Start Date [...] vein thrombosis),History of pulmonary embolism,Anticoagul ation management encounter,meterman current use of anticoagulant therapy take 7.5mg [...] as of this encounter (statuses as of 02/16/2024) Active Problems Problem Noted Date Diagnosed Date [...] 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 Increased risk for hereditary hemochromatosis. S/P hip [...] as of this encounter (statuses as of 02/16/2024) Resolved Problems Problem Noted Date Diagnosed Date [...] as of this encounter (statuses as of 02/16/2024) Immunizations Name Administration Dates Next Due COVID-19 mRNA, LNP-s, No Pre serve, 2-Dose Series ([employer]) 10/22/2020,10/01/2020 COVID-19, LNP-s, No Preserve , Cordell-sucrose, [...] Telephone Encounter - Johanne Calvo LPN - 02/16/2024 3:35 PM EDT Patient called in after being seen at ED per nurse/provider recommendation. He states they placed afoley and urged him to see his urologist this upcoming week. Appointment spot was booked, difficulty finding spot but patient accepted Aware to arrive for 2pm at [facility] on 02/19. Merlene isshaheenulling records and scanning into chart. - Johanne ANDERSON documented in this encounter Plan of Treatment Upcoming Encounters Date Type Department Care Team (Late st Contact Info) Description 02/19/2024 9:40 AM EDT Anticoagulation Pharmacy, [address] [place] [address] [place] [address] 02/20/2024 2:00 PM EDT Office Visit Urology Her[facility] Montejo [address] [facility] [address] [place] [address] Bear Craven MD [address] [place] [address] 02/23/2024 2:30 PM EDT Cardiac Studies Cardiac Studies, [facility] [address] [place] [address] 03/18/2024 10:40 AM EDT Office Visit Dermatology [address] [place] [address] Maribel Cazares PA-C [address] [place] [address] [place] [address] 03/27/2024 10:45 AM EDT Procedure Only Urology, [facility] [address] [place] [address] Bear Craven MD [address] [place] [address] 06/03/2024 11:00 AM EST Office Visit Family Medicine [address] [place] [phone] Sheri Carpio [address] [place] [address] 06/06/2024 10:00 AM EST Office Visit Cardiology, [facility] [address] [place] [address] Iain Ward PA-C [address] [place] [address] Health Maintenance Due Date Last Done Comments Adult Wellness Visit 06/09/2016 06/09/2015 COVID-19 Vaccine ( season) 2023 08/03/2021, 10/22/2020, 10/01/2020 Influenza Vaccine (FLU shot) (#1) 2024 03/10/2023, 03/28/2022, 03/12/2021, Additional history exists GFR 05/29/2024 05/29/2023, 07/2022, 11/17/2022, Additional history exists Fasting Serum Ferritin Hereditary Hemochromatosis (HFE) Annual,All Ages 10/11/2024 10/12/2023, 05/29/2023, 02/09/2023, Additional history exists Transferrin Saturation Hereditary Hemochromatosis (HFE) Annual,All Ages 10/11/2024 10/12/2023, 05/29/2023, 02/09/2023, Additional history exists Depression Screening 11/28/2024 11/29/2023 DIG LEVEL FOR MEDICATION MONITORING YEARLY 12/05/2024 12/06/2023, 11/17/2022, 10/22/2021, Additional history exists Albumin/Creatinine Ratio 04/27/2025 04/27/2022 DTaP,Tdap,and Td Vaccines (2 - Td or Tdap) 05/12/2027 [...] Directives occurred with: Not Discussed Care Teams Fly Maker Relationship Specialty Start Date End Date Xiomara Sapp MD [address] [place] [address] [place] [address] PCP - General Family Medicine 11/16/22 documented as of this encounter
--- OUTSIDE RECORDS SUMMARY | 2024-06-24 23:52 | External Medical Summary ---
Author Name Unknown Address Unknown Organization K01:LABORATORY [facility] [place] - [address] [place] [address] Laboratory Report Ordering Provider Test Date Status LUKASZ JOHNSON 02/21/2024 10:50:59 Final Observation Date Value Abnormality Reference (Units ) Status PSA 02/21/2024 10:50:59 0.50 <4.10 (ng/ mL) Final Performing Location LABORATORY [facility] - [address] [place] [address]
--- OUTSIDE RECORDS SUMMARY | 2024-06-24 23:52 | External Medical Summary | Summary of Care ---
Author Name Unknown Organization [facility] Address [address] [place] [address] Phone [phone] Care Team Providers Care Skill Training Program Coordinator Name Role Phone Xiomara Sapp MD Primary Care Prov ider Reason for Visit * Reason Comments Acute Encounter Details Date Type Department Care Team (Late st Contact Info) Description 02/21/2024 9:40 AM EDT Office Visit Family Medicine [address] [address] Xiomara Sapp MD [address] [place] [address] [place] [phone] Unexplained weight loss*; Screening for prostate cancer Allergies Active Allergy Reactions Criticality Noted Date Comments Sulfa Antibiotics 10/16/2003 Unknown reaction Vancomycin Low 06/17/2022 Other reaction(s): red, itchy Other reaction(s): red, itchy documented as of this encounter (statuses as of 02/21/2024) Medications Medication Sig Dispensed Refills Start Date [...] thrombosis),History of pulmonary embolism,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 Increased risk for hereditary hemochromatosis. 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 Dyslipidemia, goal LDL below 130 History of pulmonary embolism documented as of this encounter (statuses as of 02/21/2024) Resolved Problems Problem Noted Date Diagnosed Date [...] as of this encounter (statuses as of 02/21/2024) Immunizations Name Administration Dates Next Due COVID-19 mRNA, LNP-s, No Pre serve, 2-Dose Series ([employer]) 10/22/2020,10/01/2020 COVID-19, LNP-s, No Preserve , Cordell-sucrose, [...] Sign Reading Time Taken Comments Blood Pressure 132/70 02/21/2024 9:39 AM EDT Pulse 84 02/21/2024 9:39 AM EDT Temperature 36.3 C (97.3 F) 02/21/2024 9:39 AM ED T Respiratory Rate 18 02/21/2024 9:39 AM EDT Oxygen Saturation 96% 02/21/2024 9:39 AM EDT Inhaled Oxygen Concentration - - Weight 73.5 kg (162 lb) 02/21/2024 9:39 AM EDT Height 185.4 cm (6' 1") 02/21/2024 9:39 AM EDT Body Mass Index 21.37 02/21/2024 9:39 AM EDT documented in this [...] as of this encounter Progress Notes * Xiomara Sapp MD - 02/21/2024 11:38 AM EDT I have discussed the patient's management with the medical trainee and agree with the note. Please refer to the documented findings and plan of care. This patient's visit today consisted of an evaluation [facility]. I have reviewed the medical history, physical examination, diagnosis, andplan. Xiomara Kearns MD * Carmela Martin CRNP Student - 02/21/2024 9:46 AM EDT Images from the original note were not included. History of Present Illness Raghavendra Gramajo is a 83 year old male that presents for concerns about weight loss. In August 2023 patient weight 175 pounds and weight today is 162. Patient reports thinking it is parasites. Denies cramping, n/v, diarrhea, bloody stool. Patient reports formed stool. Patient can not think of any areas of exposure, no travel, no camping. Sees Dr. Craven for urology - BPH, urinary retention. Hx TURP, cystoscopy Abd US in October 2023 - F/U in May with [facility] Patient denies headaches, vision changes, SOB, chest pain. He has not had any changes in appetite and reports he eats a healthy diet daily. Typically eats oatmeal or mini wheats and some fruit like abanana or a peach. Has a midmorning and afternoon snack. Usually eat a sandwich for lunch and eat dinner around 5. He does not have any abdominal pain or cramping. Urinary concerns are managed by . He is disappointed that he needs to use a catheter and does not think he wants to consider a suprapubic cath. Denies blood in urine. He reports that knee pain has improved since he ordered a supplement that he saw on t.v. He is not sure the name of it but started a month ago and it really helped. He reports that he gets a red lumps that appear on his muscles and get really itchy. None present at this time. He has not noticed a change in energy level or muscle strength or weakness. PSA in 10/22/21 0.90 BCC in 03/22/2022 CBC, CMP, PSA, Chest X ray, UA Physical Exam Vitals: 02/21/24 0939 Temp: 36.3 C (97.3 F) Pulse: 84 Resp: 18 SpO2: 96% BP: 132/70 BMI: 21.38 Physical Exam Vitals reviewed. HENT: Mouth/Throat: Mouth: Mucous membranes are moist. Pharynx: Oropharynx is clear. Eyes: Conjunctiva/sclera: Conjunctivae normal. Pupils: Pupils are equal, round, and reactive to light. Neck: Vascular: No carotid bruit. Cardiovascular: Rate and Rhythm: Normal rate and regular rhythm. Pulses: Normal pulses. Heart sounds: Normal heart sounds. No murmur heard. No gallop. Abdominal: General: Abdomen is flat. Bowel sounds are normal. Palpations: Abdomen is soft. Musculoskeletal: Cervical back: Normal range of motion. No rigidity or tenderness. Comments: Abnormal gait, walks with cane Skin: General: Skin is warm and dry. Neurological: General: No focal deficit present. Mental Status: He is alert and oriented to person, place, and time. Motor: Weakness present. Gait: Gait abnormal. Psychiatric: Mood and Affect: Mood normal. Behavior: Behavior normal. I have reviewed the following results: TSH, CBC, BMP, and PSA Assessment and Plan There are no diagnoses linked to this encounter. Order labs CBC, PSA, CMP, TSH. Order Chest X-ray Order UA. Stool test If results are normal consider CT and nutrition referral. Wrap-Up Has an appointment with CLOTHING DESIGNER in 3 months. Time: I spent a total of 40-54 minutes (exact time 40 mins) on the date of service in preparation, delivery, and documentation of the care provided to Raghavendra Gramajo excluding any time spent in the performance of separately billed services. documented in this encounter Nursing Notes * Whitney Stern RN - 02/21/2024 9:39 AM EDT Acute visit for weight loss, states his appetite is ok. pt concerned about parasites. He will be getting labs today for urology, if you need to add anything documented in this encounter Plan of Treatment Upcoming Encounters Date Type Department Care Team (Late st Contact Info) Description 02/23/2024 2:30 PM EDT Cardiac Studies Cardiac Studies, [address] [place] [address] 02/27/2024 11:00 AM EDT Nurse Only Urology, [address] [place] [address] [place] Nurse U[facility] [address] [place] [address] 03/04/2024 9:40 AM EDT Anticoagulation Pharmacy, [address] [place] [address] [place] [address] 03/18/2024 10:40 AM EDT Office Visit Dermatology [address] [place] [address] Maribel Cazares PA-C [address] [place] [address] [place] [address] 03/27/2024 10:45 AM EDT Procedure Only Urology, [address] [place] [address] Bear Craven MD [address] [place] [address] 06/03/2024 11:00 AM EST Office Visit Family Medicine [address] [place] [phone] Sheri Carpio CRNP [address] [place] [address] [place] [address] 06/06/2024 10:00 AM EST Office Visit Cardiology, [facility] [address] [place] [address] Iain Ward PA-C [address] [place] [address] Pending Results Name Type Priority Associated Diagnoses Date /Time URINALYSIS, REFLEX TO MICROSCOPIC Lab Routine Unexplained weight loss 02/21/2024 10:38 AM EDT HEPATIC FUNCTION PANEL Lab Routine Unexplained weight loss 02/21/2024 10:50 AM EDT CBC WITH WBC DIFFERENTIAL AND ANEMIA REFLEX WORKUP Lab Routine Unexplained weight loss 02/21/2024 10:50 AM EDT PSA Lab Routine Unexplained weight loss Screening for prostate cancer 02/21/2024 10:50 AM EDT XR CHEST 2 VIEWS Medical Imaging Routine Unexplained weight loss 02/21/2024 11:06 AM EDT Scheduled Orders Name Type Priority Associated Diagnoses Orde r Schedule URINALYSIS, REFLEX TO MICROSCOPIC Lab Routine Unexplained weight loss Expected: 02/21/2024, Expires: 02/20/2025 HEPATIC FUNCTION PANEL Lab Routine Unexplained weight loss Expected: 02/21/2024 (Approximate), Expires: 02/20/2025 CBC WITH WBC DIFFERENTIAL AND ANEMIA REFLEX WORKUP Lab Routine Unexplained weight loss Expected: 02/21/2024 (Approximate), Expires: 02/20/2025 PSA Lab Routine Unexplained weight loss Screening for prostate cancer Expected: 02/21/2024 (Approximate), Expires: 02/20/2025 OVA AND PARASITES, CONCENTRATE AND PERMANENT SMEAR Lab Routine Unexplained weight loss Expected: 02/21/2024, Expires: 02/20/2025 Health Maintenance Due Date Last Done Comments [...] Unexplained weight loss- Primary Loss of weight Screening for prostate cancer Special screening for malignant neoplasm of prostate documented in this encounter Advance Directives * Full Code (Latest Code Status on File) Date Activated Date Inactivated Comments 11/13/2020 4:45 PM 11/14/2020 5:13 PM Question Answer Comments Discussion of Advance Directives occurred with: Not Discussed Care Teams Skill Training Program Coordinator Relationship Specialty Start Date End Date Xiomara Sapp MD [address] [place] [address] [place] [phone] PCP - General Family Medicine 11/16/22 documented as of this encounter
--- OUTSIDE RECORDS SUMMARY | 2024-06-24 23:52 | External Medical Summary ---
Author Name Unknown Address Unknown Organization : Laboratory Report Ordering Provider Test Date Status LUKASZ JOHNSON 02/22/2024 10:16:50 Final Observation Date Value Abnormality Reference (Units ) Status Ova and parasites identified in Stool by Trichrome stain--3rd specimen 02/22/2024 10:16:50 SEE BELOW Final Ova and Parasites, Concentra te and Permanent Smear
Examination for Ova and Parasites
SOURCE : STOOL
Result/Comment:
NO OVA AND PARASITES SEEN.
Reference Range: No Ova and Parasites seen
Routine Ova and Parasite Exam may not detect some
parasites that occasionally cause diarrheal illness.
Cryptosporidium Antigen and/or Cyclospora and Isospora
Exam may be ordered to detect these parasites.
One negative sample does not necessarily rule out the
presence of a parasitic infection.
Assay performed by wet mount after concentration.
Parasite Exam, Trichrome Stain
SOURCE : STOOL
Result/Comment:
NO OVA AND PARASITES SEEN.
Routine Ova and Parasite Exam may not detect some
parasites that occasionally cause diarrheal illness.
Cryptosporidium Antigen and/or Cyclospora and Isospora
Exam may be ordered to detect these parasites.
One negative sample does not necessarily rule out the
presence of a parasitic infection.
For additional information, please refer to
https://education.[employer]/faq/QUF075
(This link is being provided for informational/
educational purposes only.)

Test Performed at:
[facility]
[address] [place] [address]
[place] [address]
Andres Daley M.D., Ph.D.,Director of Laboratories Performing Location
--- OUTSIDE RECORDS SUMMARY | 2024-06-24 23:52 | External Medical Summary | Summary of Care ---
Author Name Unknown Organization [facility] Address [address] [place] [address] Phone [phone] Care Team Providers Care Valve Machine Operator Name Role Phone Xiomara Sapp MD Primary Care Prov ider Reason for Visit * Reason Onset Date Comments Appointment 02/19/2024 Encounter Details Date Type Department Care Team (Late st Contact Info) Description 02/19/2024 Telephone Family Medicine [address] [address] Xiomara Sapp MD [address] [place] [address] [place] [address] Appointment Allergies Active Allergy Reactions Criticality Noted Date Comments Sulfa Antibiotics 10/16/2003 Unknown reaction Vancomycin Low 06/17/2022 Other reaction(s): red, itchy Other reaction(s): red, itchy documented as of this encounter (statuses as of 02/19/2024) Medications Medication Sig Dispensed Refills Start Date [...] as of this encounter (statuses as of 02/19/2024) Active Problems Problem Noted Date Diagnosed Date [...] 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 Increased risk for hereditary hemochromatosis. S/P hip [...] as of this encounter (statuses as of 02/19/2024) Resolved Problems Problem Noted Date Diagnosed Date [...] as of this encounter (statuses as of 02/19/2024) Immunizations Name Administration Dates Next Due COVID-19 [...] encounter Miscellaneous Notes * Telephone Encounter - Natalia Ruiz, MONICA - 02/19/2024 9:05 AM EDT Pt is calling and reports that he is losing weight faster than he can eat. Is concerned that he hasparasites. Was at the ER this past Monday02/16/24 due to "not being able to make his water". Pt is scheduled with urology- Dr. Craven tomorrow for an ER f/u. Denies abd pain, cramping, diarrhea and fevers. Is moving bowels regularly. Current weight this morning was 153 lbs. Feels that he is losing muscle mass. Offered appt for tomorrow and declines. Only wants to be seen by PCP. Appt was scheduled Monday02/21/24. documented in this encounter Plan of Treatment Upcoming Encounters Date Type Department Care Team (Late st Contact Info) Description 02/19/2024 9:40 AM EDT Anticoagulation Pharmacy, [address] [place] [address] [place] [address] 02/20/2024 2:00 PM EDT Office Visit Urology Herb Montejo [address] [facility] [address] [place] [address] Bear Craven MD [address] [place] [address] 02/21/2024 9:40 AM EDT Office Visit Family Medicine [address] [place] [address] Xiomara Sapp MD [address] [place] [address] [place] [address] 02/23/2024 2:30 PM EDT Cardiac Studies Cardiac Studies, [address] [place] [address] 03/18/2024 10:40 AM EDT Office Visit Dermatology [address] [place] [address] Maribel Cazares PA-C [address] [place] [address] [place] [address] 03/27/2024 10:45 AM EDT Procedure Only Urology, [facility] [address] [facility] [place] [address] Bear Craven MD [address] [place] [address] 06/03/2024 11:00 AM EST Office Visit Family Medicine [address] [place] [phone] [address] [place] [address] 06/06/2024 10:00 AM EST Office Visit Cardiology, [facility] [address] [place] [address] Iain Ward PA-C [address] [place] [address] Health Maintenance Due Date Last Done Comments [...] Directives occurred with: Not Discussed Care Teams Valve Machine Operator Relationship Specialty Start Date End Date Xiomara Sapp MD [address] [place] [address] [place] [address] PCP - General Family Medicine 11/16/22 documented as of this encounter
--- OUTSIDE RECORDS SUMMARY | 2024-06-24 23:52 | External Medical Summary | Summary of Care ---
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 Increased risk for hereditary hemochromatosis. S/P hip [...] mRNA, LNP-s, No Pre serve, 2-Dose Series ([employer]) 10/22/2020,10/01/2020 COVID-19, LNP-s, No Preserve , Cordell-sucrose, [...] Craven MD - 02/20/2024 2:55 PM EDT [id number] PCP: XOIMARA SAPP [address] [place] [address] Raghavendra Gramajo is [...] of Onset Heart Disorder Father 48 of PA @ 48 Cancer Brother urethra Hypertension Brother Neurological Disorder Brother parkinson's Thyroid Disorder Daughter Thyroid Disorder Son Past Surgical History: Procedure Laterality Date COLONOSCOPY 2010; 08/2011 [facility]--repeated 2011--polyps (tubulovillous) COLONOSCOPY, DIAGNOSTIC (RECTUM) 08/25/2016 adenomatous & hyperplastic polyps, diverticulosis, repeat 5 yrs/[facility] COLONOSCOPY, DIAGNOSTIC (RECTUM) 01/27/2022 diverticulosis / [facility] CT CHEST W CONTRAST 05/23/2012 PE in left lingular pulmonary artery CT HEAD/BRAIN 05/23/2012 no acute findings ECHO (2-D COMPLETE) 05/24/2012 normal EGD, FLEXIBLE, DIAGNOSTIC 10/02/2018 reflux esophagitis/[facility] KNEE ARTHROSCOPY/ARTHROPLASTY 1960 left knee LAPAROSCOPY; CHOLECYSTECTOMY 10/03/2003 [facility] [address]. Wasserman LUMBAR / SACRAL EPIDURAL, SINGLE LEVEL Right 12/20/2016 Dr Mata, L3-4 on right. MRI L SPINE WO CONTRAST 12/18/2016 multilevel degenerative and postoperative changes OTHER (INFORMATION) 1973/1985/1988/1992/1997 back surgeries x 5 REMOVAL OF NOSE POLYP(S), SIMPLE REMOVAL OF PROSTATE (TURP) N/A 11/13/2020 TRANSURETHRAL RESECTION PROSTATE ELECTROSURGICAL performed by Alessio Santamaria MD at [facility] REMOVE LUMBAR SPINE LAMINA, 3+ SEGS 01/26/2017 L2-4 lumbar laminectomy; Dr. Blake TOTAL HIP REPLACEMENT & PROSTHESIS Right 08/26/[address] [facility] DUPLEX CAROTID BILAT 05/23/2012 no stenosis Past [...] for retention. Pt was seem at the [facility] ED for retention and christian was placed. Pt was given christian to CIC at home. Pt was not able to go upon waking and preformed CIC and a large amount of urine came out. Pt is scheduled for cysto in March in [facility]. Taking finasteride and flomax PSA Results: Lab [...] 9:40 AM EDT Office Visit Family Medicine [address] [place] [address] Xiomara Sapp MD [address] [place] [address] [place] [address] 02/23/2024 2:30 PM EDT Cardiac Studies Cardiac Studies, [facility] [address] [place] [address] 02/27/2024 11:00 AM EDT Nurse Only Urology, [facility] [address] [place] [address] [place], Nurse Urology [place] [address] [place] [address] 03/04/2024 9:40 AM EDT Anticoagulation Pharmacy, [address] [place] [address] [place] [address] 03/18/2024 10:40 AM EDT Office Visit Dermatology [address] [place] [address] Maribel Cazares PA-C [address] [place] [address] [place] [address] 03/27/2024 10:45 AM EDT Procedure Only Urology, [facility] [address] [place] [address] Bear Craven MD [address] [place] [address] 06/03/2024 11:00 AM EST Office Visit Family Medicine [address] [place] [phone] Sheri Carpio [address] [place] [address] 06/06/2024 10:00 AM EST Office Visit Cardiology, [facility] [address] [address] Iain Ward PA-C [address] [place] [address] Scheduled Orders Name Type Priority Associated Diagnoses [...] Directives occurred with: Not Discussed Care Teams Environmental Planning Engineer Relationship Specialty Start Date End Date Xiomara Sapp MD [address] [place] [address] [place] [phone] PCP - General Family Medicine 11/16/22 documented as of this encounter
--- OUTSIDE RECORDS SUMMARY | 2024-06-24 23:52 | External Medical Summary | Summary of Care ---
Author Name Unknown Organization [facility] Address [address] [place] [address] Phone [phone] Care Team Providers Care Teleradiologist Name Role Phone Xiomara Sapp MD Primary Care Prov ider Reason for Visit * Reason Comments Acute Encounter Details Date Type Department Care Team (Late st Contact Info) Description 02/21/2024 9:40 AM EDT Office Visit Family Medicine [address] [address] Xiomara Sapp MD [address] [place] [address] [place] [phone] Unexplained weight loss*; Screening for prostate cancer [...] vein thrombosis),History of pulmonary embolism,Anticoagul ation management encounter,long term current use of anticoagulant therapy take 7.5mg [...] 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 Increased risk for hereditary hemochromatosis. S/P hip [...] mRNA, LNP-s, No Pre serve, 2-Dose Series ([employer]) 10/22/2020,10/01/2020 COVID-19, LNP-s, No Preserve , Cordell-sucrose, [...] nutrition referral. 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 Time: I spent a [...] 2:30 PM EDT Cardiac Studies Cardiac Studies, [address] [place] [address] 02/27/2024 11:00 AM EDT Nurse Only Urology, [address] [place] [address] [place] Nurse U[facility] [address] [place] [address] 03/04/2024 9:40 AM EDT Anticoagulation Pharmacy, [address] [place] [address] [place] [address] 03/18/2024 10:40 AM EDT Office Visit Dermatology [address] [place] [address] Maribel Cazares PA-C [address] [place] [address] [place] [address] 03/27/2024 10:45 AM EDT Procedure Only Urology, [address] [place] [address] Bear Craven MD [address] [place] [address] 06/03/2024 11:00 AM EST Office Visit Family Medicine [address] [place] [phone] Sheri Carpio CRNP [address] [place] [address] [place] [address] 06/06/2024 10:00 AM EST Office Visit Cardiology, [facility] [address] [place] [address] Iain Ward PA-C [address] [place] [address] Pending Results Name Type Priority Associated Diagnoses [...] Directives occurred with: Not Discussed Care Teams Teleradiologist Relationship Specialty Start Date End Date Xiomara Sapp MD [address] [place] [address] [place] [phone] PCP - General Family Medicine 11/16/22 documented as of this encounter
--- OUTSIDE RECORDS SUMMARY | 2024-06-24 23:52 | External Medical Summary | Summary of Care ---
Author Name Unknown Organization [facility] Address [address] [place] [address] Phone [phone] Care Team Providers Care Facility Practice Specialist Name Role Phone Xiomara Sapp MD Primary Care Prov ider Reason for Visit * Reason Comments Outpatient Testing Encounter Details Date Type Department Care Team (Late st Contact Info) Description 02/22/2024 10:20 AM EDT Laboratory Laboratory [address] [place] [address] Dr Specimen Drop Off [address] [place] [address] Unexplained weight loss Allergies Active Allergy Reactions Criticality Noted Date Comments Sulfa Antibiotics 10/16/2003 Unknown reaction Vancomycin Low 06/17/2022 Other reaction(s): red, itchy Other reaction(s): red, itchy documented as of this encounter (statuses as of 02/22/2024) Medications Medication Sig Dispensed Refills Start Date [...] thrombosis),History of pulmonary embolism,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 Increased risk for hereditary hemochromatosis. S/P hip [...] as of this encounter (statuses as of 02/22/2024) Resolved Problems Problem Noted Date Diagnosed Date [...] as of this encounter (statuses as of 02/22/2024) Immunizations Name Administration Dates Next Due COVID-19 [...] 2:30 PM EDT [facility] [address] [place] [address] 02/27/2024 11:00 AM EDT Nurse [facility] [address] [place] [address] [place], Nurse Urology [place] [address] 03/04/2024 9:40 AM EDT Anticoagulation Pharmacy, [address] [place] [address] [place] [address] 03/18/2024 10:40 AM EDT Office Visit Dermatology [address] [place] [address] Maribel Cazares PA-C [address] [place] [address] [place] [address] 03/27/2024 10:45 AM EDT Procedure Only Urology, [facility] [address] [place] [address] Bear Craven MD [address] [place] [address] 06/03/2024 11:00 AM EST Office Visit Family Medicine [address] [place] [address] Sheri Carpio [address] [place] [address] 06/06/2024 10:00 AM EST Office Visit Cardiology, [facility] [address] [place] [address] Iain Ward PAJosueC [facility] [place] [address] Pending Results Name Type Priority Associated Diagnoses Date /Time OVA AND PARASITES, CONCENTRATE AND PERMANENT SMEAR Lab Routine Unexplained weight loss 02/22/2024 10:16 AM EDT Health Maintenance Due Date Last [...] this encounter Visit Diagnoses Diagnosis Unexplained weight loss Loss of weight documented in this encounter Advance Directives * Full Code (Latest Code Status on File) Date Activated Date Inactivated Comments 11/13/2020 4:45 PM 11/14/2020 5:13 PM Question Answer Comments Discussion of Advance Directives occurred with: Not Discussed Care Teams Facility Practice Specialist Relationship Specialty Start Date End Date Xiomara Sapp MD [address] [place] [address] [place] [address] PCP - General Family Medicine 11/16/22 documented as of this encounter
--- OUTSIDE RECORDS SUMMARY | 2024-06-24 23:52 | External Medical Summary | Summary of Care ---
Author Name Unknown Organization [facility] Address [address] [place] [address] Phone [phone] Care Team Providers Care Precise Winder Name Role Phone Xiomara Sapp MD Primary Care Prov ider Encounter Details Date Type Department Care Team (Late st Contact Info) Description 02/27/2024 11:00 AM EDT Nurse Only Urology, [facility] [address] [place] [address] Nurse [place] Urology [facility] [address] [place] [address] Allergies Active Allergy Reactions Criticality Noted Date Comments Sulfa Antibiotics 10/16/2003 Unknown reaction Vancomycin Low 06/17/2022 Other reaction(s): red, itchy Other reaction(s): red, itchy documented as of this encounter (statuses as of 02/27/2024) Medications Medication Sig Dispensed Refills Start Date [...] as of this encounter (statuses as of 02/27/2024) Active Problems Problem Noted Date Diagnosed Date [...] 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 Increased risk for hereditary hemochromatosis. S/P hip [...] as of this encounter (statuses as of 02/27/2024) Resolved Problems Problem Noted Date Diagnosed Date [...] as of this encounter (statuses as of 02/27/2024) Immunizations Name Administration Dates Next Due COVID-19 mRNA, LNP-s, No Pre serve, 2-Dose Series (Granular) 10/22/2020,10/01/2020 COVID-19, LNP-s, No Preserve , Cordell-sucrose, [...] to inability to pass straight catheter. Patient declined to attempt CIC in office, patient states he is comfortable with the procedure and has successfully self-catheterized at home with no issues. documented in this encounter Plan of Treatment Upcoming Encounters Date Type Department Care Team (Late st Contact Info) Description 03/04/2024 9:40 AM EDT Anticoagulation Pharmacy, [address] [place] [address] [place] [address] 03/18/2024 10:40 AM EDT Office Visit Dermatology [address] [place] [address] Maribel Cazares PA-C [address] [place] [address] [place] [address] 03/27/2024 10:45 AM EDT Procedure Only Urology, [facility] [address] [place] [address] Bear Craven MD [address] [place] [address] 06/03/2024 11:00 AM EST Office Visit Family Medicine [address] [place] [address] Sheri Carpio [address] [place] [address] 06/06/2024 10:00 AM EST Office Visit Cardiology, [facility] [address] [place] [address] Iain Ward PA-C 132 [place] [address] Health Maintenance Due Date Last Done Comments [...] Directives occurred with: Not Discussed Care Teams Precise Winder Relationship Specialty Start Date End Date Xiomara Sapp MD [address] [place] [address] [place] [address] PCP - General Family Medicine 11/16/22 documented as of this encounter
--- OUTSIDE RECORDS SUMMARY | 2024-06-24 23:52 | External Medical Summary ---
Author Name Unknown Address Unknown Organization K01:LABORATORY [facility] - [address] [facility] [address] Laboratory Report Ordering Provider Test Date Status LUKASZ JOHNSON 02/21/2024 10:50:59 Final Observation Date Value Abnormality Reference (Units ) Status SYNC LEUKOCYTES IN BLOOD BY AUTOMATED COUNT 02/21/2024 10:50:59 5.74 4.00-10.80 (K/uL) Final Segs 02/21/2024 10:50:59 72.0 40.0-75.0 (%) Final Lymphs % 02/21/2024 10:50:59 8.9 Below low normal 18.0-42.0 (%) Final Monos 02/21/2024 10:50:59 12.2 Above high normal 1.0-11.0 (%) Final Eosinophils 02/21/2024 10:50:59 6.3 Above high normal 0.0-6.0 (%) Final Basos 02/21/2024 10:50:59 0.3 0.0-2.0 (%) Final Immature Granulocyte, Percent 02/21/2024 10:50:59 0.3 0.0-2.0 (%) Final Absolute Segs 02/21/2024 10:50:59 4.13 1.80-7.70 (K/uL) Final Lymphs, absolute 02/21/2024 10:50:59 0.51 Below low normal 1.00-4.80 (K/ul) Final Monos, Abs 02/21/2024 10:50:59 0.70 0.00-1.10 (K/uL) Final Eos, Abs 02/21/2024 10:50:59 0.36 0.00-0.70 (K/uL) Final Basos, Abs 02/21/2024 10:50:59 0.02 0.00-0.20 (K/uL) Final Immature Granulocytes, Number 02/21/2024 10:50:59 0.02 0.00-0.20 (K/uL) Final Performing Location LABORATORY [facility] - [facility] [address]. [facility] [address]
--- OUTSIDE RECORDS SUMMARY | 2024-06-24 23:52 | External Medical Summary | Summary of Care ---
Author Name Unknown Organization [facility] Address [address] [place] [address] Phone [phone] Care Team Providers Care Contract Preparer Name Role Phone Xiomara Sapp MD Primary Care Prov ider Reason for Visit * Reason Comments Outpatient Testing Encounter Details Date Type Department Care Team (Latest Contact Info) Description 02/21/2024 10:50 AM EDT Laboratory Laboratory [address] [place] [phone] [place] [address] Hereditary hemochromatosis (HCC); BPH with urinary obstruction; Dysuria; Detrusor areflexia; Unexplained weight loss; Screening for prostate cancer Allergies Active Allergy [...] thrombosis),History of pulmonary embolism,Anticoagul 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 Increased risk for hereditary hemochromatosis. S/P hip [...] mRNA, LNP-s, No Pre serve, 2-Dose Series ([employer]) 10/22/2020,10/01/2020 COVID-19, LNP-s, No Preserve , Cordell-sucrose, [...] 2:30 PM EDT Cardiac Studies Cardiac Studies, [facility] 132 [facility] [place] [address] 02/27/2024 11:00 AM EDT Nurse Only Urology, [facility] [place] [address] [place] Nurse Urology [place] [address] [place] [address] 03/04/2024 9:40 AM EDT Anticoagulation Pharmacy, [place] [facility] [place] [address] [place] [address] 03/18/2024 10:40 AM EDT Office Visit Dermatology [address] [place] [address] Maribel Cazares PA-C [address] [place] [address] [place] [address] 03/27/2024 10:45 AM EDT Procedure Only Urology, [facility] [address] [place] [address] Bear Craven MD [address] [place] [address] 06/03/2024 11:00 AM EST Office Visit Family Medicine [address] [place] [phone] Sheri Carpio [address] [place] [address] 06/06/2024 10:00 AM EST Office Visit Cardiology, [facility] [address] [place] [address] Iain Ward PA-C [address] [place] [address] Pending Results Name Type Priority Associated Diagnoses Date /Time BASIC METABOLIC PANEL Lab Routine BPH with urinary obstruction Dysuria Detrusor areflexia 02/21/2024 10:50 AM EDT HEPATIC FUNCTION PANEL Lab Routine Unexplained weight loss 02/21/2024 10:50 AM EDT CBC WITH WBC DIFFERENTIAL AND ANEMIA REFLEX WORKUP Lab Routine Unexplained weight loss 02/21/2024 10:50 AM EDT PSA Lab Routine Unexplained weight loss Screening for prostate cancer 02/21/2024 10:50 AM EDT ANEMIA CBC Lab Routine Unexplained weight loss 02/21/2024 10:50 AM EDT DIFFERENTIAL, AUTOMATED Lab Routine Unexplained weight loss 02/21/2024 10:50 AM EDT ANEMIA REFLEX CHEMISTRY HOLD Lab Routine Unexplained weight loss 02/21/2024 10:50 AM EDT Health Maintenance Due Date Last [...] Diagnoses Diagnosis Hereditary hemochromatosis (HCC) Hereditary hemochromatosis BPH with urinary obstruction Hypertrophy of prostate with urinary obstruction and other lower urinary tract symptoms (LUTS) Dysuria Detrusor areflexia Atony of bladder Unexplained weight loss Loss of weight Screening for prostate cancer Special screening for malignant neoplasm of prostate documented in this encounter Advance Directives * Full Code (Latest Code Status on File) Date Activated Date Inactivated Comments 11/13/2020 4:45 PM 11/14/2020 5:13 PM Question Answer Comments Discussion of Advance Directives occurred with: Not Discussed Care Teams Contract Preparer Relationship Specialty Start Date End Date Xiomara Sapp MD [address] [place] [address] [place] [address] PCP - General Family Medicine 11/16/22 documented as of this encounter
--- OUTSIDE RECORDS SUMMARY | 2024-06-24 23:52 | External Medical Summary | Summary of Care ---
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 Increased risk for hereditary hemochromatosis. S/P hip [...] mRNA, LNP-s, No Pre serve, 2-Dose Series ([employer]) 10/22/2020,10/01/2020 COVID-19, LNP-s, No Preserve , Cordell-sucrose, [...] Progress Notes * Halima Rodriguez, [facility] - 02/19/2024 9:41 AM EDT Images from the original note were not included. Medication Therapy Disease Management - Anticoagulation Patient: Raghavendra Gramajo | : 1940 Subjective Contacts Contact Date/Time Type Contact Phone/Fax 02/16/2024 05:10 AM EDT Vendor (Outgoing) GramajoTomi sarmientokomal Mata [phone] 02/18/2024 05:11 AM EDT Vendor (Outgoing) Raghavendra Gramajo [phone] Patient-Reported Symptoms: Patient Findings Positives: Emergency department visit Negatives: Signs/symptoms of thrombosis, Signs/symptoms of bleeding, Change in health, Change in alcohol use, Change in activity, Upcoming invasive procedure, Missed doses, Extra doses, Change in medications, Change in diet/appetite, Bruising Objective Current Warfarin Dose As of 02/19/2024 Warfarin maintenance plan: 7.5 mg (5 mg x 1.5) every Kelsea; 5 mg (5 mg x 1) all other days INR Result As of 02/19/2024 INR goal: 2.0-3.0 INR used for dosin.7 (02/19/2024) Assessment & Plan Warfarin Plan As of 02/19/2024 Full warfarin instructions: 02/18: 7.5 mg; Otherwise 7.5 mg every Kelsea; 5 mg all other days Next INR check: 03/04/2024 Repeat PT/INR in 2 week(s) Weekly dose: not changed Additional Dosing Information: Recent visit to [facility] ER due to urinary retention. King catheter placed. F/u with urology as well as PCP this week. Denies any s/sx of bleeding. I spent a total of 10-19 minutes (exact time 15 mins) on the date of service in preparation, delivery, and documentation of the care provided to Raghavendra Gramajo excluding any time spent in the performance of separately billed services or time spent by another provider/QHP. Halima Rodriguez [facility] Clinical Pharmacist 02/19/2024, 9:41 AM documented in this encounter Plan of Treatment Upcoming Encounters Date Type Department Care Team (Late st Contact Info) Description 02/20/2024 2:00 PM EDT Office Visit Urology Herb Montejo [address] [place] [address] Bear Craven MD 27 [place] [address] 02/21/2024 9:40 AM EDT Office Visit [address] [phone] Xiomara Sapp MD [address] [place] [address] [place] [address] 02/23/2024 2:30 PM EDT Cardiac Studies Cardiac Studies, [facility] [address] [place] [address] 03/04/2024 9:40 AM EDT Anticoagulation Pharmacy, [address] [place] [address] [place] [address] 03/18/2024 10:40 AM EDT Office Visit Dermatology [address] [place] [address] Maribel Cazares PA-C [address] [place] [address] [place] [address] 03/27/2024 10:45 AM EDT Procedure Only Urology, [facility] [address] [place] [address] Bear Craven MD [place] [address] 06/03/2024 11:00 AM EST Office Visit Family Medicine [address] [place] [address] Sheri Carpio [address] [place] [address] 06/06/2024 10:00 AM EST Office Visit Cardiology, [facility] [address] [place] [address] Iain Ward PA-C 132 [place] [address] Health Maintenance Due Date Last Done Comments [...] Comments INR FINGERSTICK, POINT OF CARE STAT 02/19/2024 9:46 AM EDT Anticoagulation management encounter documented in this encounter Results * INR FINGERSTICK, POINT OF CARE (02/19/2024 9:46 AM EDT) Fingerstick INR 1.7 INR 9:48 AM EDT [facility]- Blood 02/19/2024 9:46 AM EDT 02/19/2024 9:48 AM EDT Narrative [facility]- - 02/19/2024 9:48 AM EDT Therapeutic ranges for non-operative patients: Prophylaxsis/treatment of DVT: (Range:2.0-3.0) Treatment of pulmonary embolism:(Range:2.0-3.0) Prevention of systemic embolism from: -tissue heart valves -acute myocardial infarction -valvular heart disease -atrial fibrillation (Range: 2.0-3.0) Mechanical prosthetic valves: (Range: 2.5-3.5) [facility] LAB POINT OF CARE TEST DOCKED DEVICE UNSOLICITED RESULTS [facility] [address] [place] [address] [place] [address] documented in this encounter Visit Diagnoses Diagnosis [...] Directives occurred with: Not Discussed Care Teams Escrow Assistant Relationship Specialty Start Date End Date Xiomara Sapp MD [address] [place] [address] [place] [address] PCP - General Family Medicine 11/16/22 documented as of this encounter"
--- OUTSIDE RECORDS SUMMARY | 2024-06-24 23:52 | External Medical Summary ---
Author Name Unknown Address Unknown Organization K01:LABORATORY [facility] - [facility] [address] [place] [address] Laboratory Report Ordering Provider Test Date Status OLU THOMPSON 02/21/2024 10:50:59 Final Observation Date Value Abnormality Reference (Units ) Status BUN 02/21/2024 10:50:59 19 6-20 (mg/dL) Final Creatinine 02/21/2024 10:50:59 1.0 0.6-1.2 (mg/dL) Final Glomerular filtration rate/1.73 sq M.predicted [Volume Rate/Area] in Serum, Plasma or Blood by Creatinine-based formula (CKD-EPI) 02/21/2024 10:50:59 73 >=60 (mL/min) Final eGFR is calculated based on the CKD-EPI 2020 equation. Sodium 02/21/2024 10:50:59 142 135-146 (m mol/L) Final Potassium 02/21/2024 10:50:59 4.7 3.5-5.1 (m mol/L) Final Cl 02/21/2024 10:50:59 104 98-107 (mm ol/L) Final CO2 02/21/2024 10:50:59 30 22-32 (mmo l/L) Final Anion gap 02/21/2024 10:50:59 8 7-15 (mmol /L) Final Glucose 02/21/2024 10:50:59 69 Below low normal 70- 120 (mg/dL) Final Calcium 02/21/2024 10:50:59 8.9 8.4-10.2 ( mg/dL) Final Performing Location LABORATORY [facility] - [address] [place] [address]
--- NOTE | 2024-06-24 23:53 | History & Physical Report ---
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 Paez.) N.p.o. until patient seen in anticipation of procedure. Acceptable risk for cardiac complications resulting from prospective procedure Revised Cardiac Risk Index (RCRI): 1. High-risk type of surgery (examples include vascular and any open intraperitoneal or intrathoracic procedures). No 2. History of ischemic heart disease (history of myocardial infarction or positive exercise test, current compliant of chest pain considered to be secondary to myocardial ischemia, use of nitrate therapy, or ECG with pathological Q waves; do not count prior coronary revascularization procedure unless one of the other criteria for ischemic heart disease is present). No 3. History of heart failure. No 4. History of cerebrovascular disease. No 5. Diabetes mellitus requiring treatment with insulin. No 6. Preoperative serum creatinine >2.0. No Pt has revised cardiac index score of 1 points. (Class II Risk.) 6 % 30-day risk of , CT, or cardiac arrest. Acceptable risk for cardiac complications if surgery recommended by Orthopedics and patient/family agreeable to attendant procedural benefits and risks.. Hold Coumadin for now in anticipation of procedure. Recheck INR in a.m., may need vitamin K IV heparin while INR less than 2 while Coumadin on hold until patient seen by orthopedics. Urine CS, hold off on additional antibiotics for now DVT prophylaxis. SCDs while Coumadin on hold if INR less than 2/IV heparin Full code Patient requests for to be given updates regarding care. Ms. Yadi Gramajo, contact #[phone]. Text document was generated using Buxfer voice recognition software. It may contain grammatical or spelling errors. Kindly contact undersigned for clarification of any documentation item in question. History of Present Illness Chief Complaint: Fall, left hip pain Primary Care Provider: Xiomara Kearns MD History obtained from patient and [email or web address]. 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 Last confinement February 2023 for dizziness symptoms attributed to vertigo. 2 weeks ago, patient noted dysuria symptoms. Symptoms improved after outpatient Macrodantin Rx. Outpatient urine no growth. Patient was trying to wind up a hose in his garage today. Patient fell down as he bumped up the holes. Fall on the left side hitting hip and shoulder. No head trauma, no chest pain, no SOB, no LOC. Achy left hip and shoulder pain. Unable to get up. Highest SBP of 160s at the ER. 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 Allergies Allergy/AdvReac Type Severity Reaction Status Date / Time vancomycin Allergy Mild red, itchy Verified 06/24/24 23:54 Sulfa (Sulfonamide Allergy Unknown "Everyone Verified 06/24/24 23:54 Antibiotics) in family" Home Medications Medication Instructions Recorded Confirmed Type azelastine 137 mcg (0.1 %) nasal 2 spray intranasal BID PRN RHINITIS 10/01/18 06/24/24 History spray cholecalciferol (vitamin D3) 125 5,000 unit PO QAM 10/01/18 06/24/24 History mcg (5,000 unit) tablet (Vitamin D3) fluticasone propionate 50 2 spray intranasal QAM PRN 10/01/18 06/24/24 History mcg/actuation nasal Congestion spray,suspension (Flonase Allergy Relief) furosemide 40 mg tablet (Lasix) 40 mg PO DAILY PRN fluid 10/01/18 06/24/24 History accumulation or wt gain magnesium oxide 400 mg PO QAM 10/01/18 06/24/24 History warfarin 5 mg tablet (Jantoven) 5 - 7.5 mg PO UD 10/01/18 06/24/24 History folic acid 1 mg tablet 1 mg PO QAM 01/21/22 06/24/24 History cyanocobalamin (vitamin B-12) 5,000 mcg sublingual DAILY 09/01/23 06/24/24 History 5,000 mcg sublingual tablet (Vitamin B-12) omeprazole 20 mg capsule,delayed 20 mg PO DAILYBB 11/15/23 06/24/24 History release acetaminophen 325 mg tablet 325 mg PO Q6 PRN Pain 06/24/24 06/24/24 History finasteride 5 mg tablet 5 mg PO QAM 06/24/24 06/24/24 History krill 1,000 mg-omega-3 170 mg-dha 1 cap PO DAILY 06/24/24 06/24/24 History 50 mg-epa 80 [id number] capsule (krill oil) metoprolol succinate 25 mg 37.5 mg PO QAM 06/24/24 06/24/24 History tablet,extended release 24 hr nitrofurantoin 100 mg PO AMHS 06/24/24 06/24/24 History monohydrate/macrocrystals 100 mg capsule potassium chloride 10 mEq 10 meq PO QAM PRN WHEN TAKING 06/24/24 06/24/24 History tablet,extended release(part/cryst) FUROSEMIDE tamsulosin 0.4 mg capsule 0.4 mg PO QAM 06/24/24 06/24/24 History Past Med/Surg History Problem List Fall from standing (Acute) Closed fracture of neck of left femur (Acute) Arthritis of knee, left Accelerated junctional rhythm Urinary retention Dizziness (Acute) Ambulatory dysfunction (Acute) Lower leg DVT (deep venous thromboembolism), acute HX Osteoarthritis of right hip BPH (benign prostatic hyperplasia) History of lumbar spinal fusion x6 Encounter for pre-operative examination Abdominal pain of unknown etiology Callus of foot Dermatitis of both feet Trochanteric bursitis of left hip Encounter for pre-operative examination Status post reverse total replacement of right shoulder (~02/2021) Osteoarthritis of left knee Encounter for pre-operative examination Special screening for malignant neoplasm of colon Deep vein thrombosis x2, after surgery, LLE DVT (2011); f[facility] [facility] Hemochromatosis Hereditary hemochromatosis, phlebotomy q6 months per GI (most recent 08/2020 per GI), (per PCP 12/2020, recent transferrin level WNL) Hyperlipidemia Hypertension controlled, stable per pt History of tooth extraction Status post Mohs surgery for basal cell carcinoma Basal cell carcinoma of nose hx GERD (gastroesophageal reflux disease) Controlled, stable per pt History of esophagogastroduodenoscopy (EGD) History of colonoscopy Paroxysmal SVT (supraventricular tachycardia) (Chronic) Follows with [facility] TIA (transient ischemic attack) (Chronic) TIA (2015/no evidence of CVA on MRI per PCP records) Dyslipidemia (Chronic) following with PCP and cardiology for management Hx of cholecystectomy (Chronic) History of back surgery (Chronic) x6 (including rods/screws) H/O nasal polypectomy (Chronic) H/O left knee surgery (Chronic) Pulmonary embolism Post-op (2011) Medical History History of blood transfusion last transfusion approx. 1985 History of difficult intubation TURP (11/13/20; [facility] Grade view 1, glidescope 3, ETT 7.5 at [facility]. Carotid artery aneurysm History of anesthesia reaction hallucinations for approximately 5 days after prostate surgery in [place] Hearing deficit No aids Aortic root dilatation Moderately enlarged, unchanged compared to 02/04/2020 (per 11/09/20 DSE report) Surgical History H/O cataract extraction History of reverse total replacement of right shoulder joint Hx of basal cell carcinoma excision History of prostate surgery TURP (11/13/20; [facility] Grade view 1, glidescope 3, ETT 7.5 at [facility] History of total right hip replacement Family History Brother Family hx colonic polyps Other No family history of adverse response to anesthesia Social History Smoking Status: Never smoker Second Hand Exposure: No; Do You Dip or Chew Tobacco: No; Hx Alcohol Use: No Hx Substance Use: No Preferred Language: Kazakh Communication Ability: Effective Director Digital Advertising Required: No Beliefs That Will Affect Care: None Current Living Situation: Spouse current occupational status: retired Feels Safe at Home: Yes Safety Concerns: Feels Safe At This Time Assistive Devices: Cane and Walker Review of Systems Review of Systems: As per HPI, all other systems reviewed and negative Physical Exam Physical Exam: GENERAL: Comfortable, pleasant, no respiratory distress SKIN: Normal color, warm HEENT: [place] palpebral conjunctivae, no ptosis, dry buccal mucosa NECK : Supple, no tenderness CHEST : Decreased breath sounds, no tenderness HEART : Bradycardic, no obvious murmurs ABDOMEN: Some distention, nontender EXTREMITIES : Left hip tenderness, no other conspicuous deformities noted NEUROLOGIC : Coherent, no facial asymmetry, no other gross focality Results & Data Results & Data Vital Signs (Past 12 Hours) Vital Signs Temp Pulse Pulse Resp BP BP Pulse Ox 06/24/24 22:03 58 L 18 153/83 H 98 06/24/24 20:40 67 06/24/24 20:15 36.5 C 63 16 157/108 H 97 O2 Del Method 06/24/24 22:03 Room Air 06/24/24 20:40 06/24/24 20:15 Room Air Laboratory Results Laboratory Results WBC 7.01 K/ul (4.8-10.8) 06/24/24 20:30 RBC 4.58 M/uL (4.70-6.10) L 06/24/24 20:30 Hgb 14.1 g/dl (14.0-18.0) 06/24/24 20:30 Hct 40.6 % (42.0-52.0) L 06/24/24 20:30 MCV 88.6 fL (80.0-100.0) 06/24/24 20:30 MCH 30.8 pg (25.0-34.0) 06/24/24 20:30 MCHC 34.7 g/dL (32.0-36.0) 06/24/24 20:30 RDW Std Deviation 42.7 fL (36.4-46.3) 06/24/24 20:30 RDW Coeff of Alex 13.1 % (11.5-14.5) 06/24/24 20:30 Plt Count 151 K/uL (130-400) 06/24/24 20:30 MPV 9.5 fL (9.4-12.4) 06/24/24 20:30 Immature Gran % (Auto) 0.3 % 06/24/24 20:30 Neut % (Auto) 81.9 % 06/24/24 20:30 Lymph % (Auto) 5.4 % 06/24/24 20:30 [place] % (Auto) 9.4 % 06/24/24 20:30 Eos % (Auto) 2.7 % 06/24/24 20:30 Baso % (Auto) 0.3 % 06/24/24 20:30 Neut # (Auto) 5.74 K/uL (1.40-6.50) 06/24/24 20:30 Lymph # (Auto) 0.38 K/uL (1.20-3.40) L 06/24/24 20:30 [place] # (Auto) 0.66 K/uL (0.11-0.59) H 06/24/24 20:30 Eos # (Auto) 0.19 K/uL (0.00-0.50) 06/24/24 20:30 Baso # (Auto) 0.02 K/uL (0.00-0.20) 06/24/24 20:30 Immature Gran # (Auto) 0.02 K/uL (0.01-0.20) 06/24/24 20:30 PT 25.0 Seconds (9.0-12.0) H 06/24/24 22:30 INR 2.5 (0.9-1.1) H 06/24/24 22:30 APTT 41 Seconds (21-31) H 06/24/24 22:30 PTT Ratio 1.5 06/24/24 22:30 Sodium 138 mmol/L (136-145) 06/24/24 20:30 Potassium 4.2 mmol/L (3.5-5.1) 06/24/24 20:30 Chloride 103 mmol/L (98-107) 06/24/24 20:30 Carbon Dioxide 31 mmol/L (21-32) 06/24/24 20:30 Anion Gap 4 (3-11) 06/24/24 20:30 BUN 28 mg/dl (6-23) H 06/24/24 20:30 Creatinine 1.04 mg/dl (0.6-1.4) 06/24/24 20:30 Est Cr Clr Drug Dosing 55.3 ml/min 06/24/24 20:30 eGFR 70.80 06/24/24 20:30 BUN/Creatinine Ratio 26.9 (10-20) H 06/24/24 20:30 Glucose 132 mg/dl (70-99(Fasting)) H 06/24/24 20:30 Calcium 9.2 mg/dl (8.6-10.3) 06/24/24 20:30 Total Bilirubin 0.7 mg/dl (0.2-1.0) 06/24/24 20:30 AST 19 U/L (13-39) 06/24/24 20:30 ALT 15 U/L (7-52) 06/24/24 20:30 Alkaline Phosphatase 74 U/L (34-104) 06/24/24 20:30 Total Protein 6.7 gm/dl (6.0-8.3) 06/24/24 20:30 Albumin 4.0 gm/dl (3.4-5.0) 06/24/24 20: Globulin 2.7 gm/dl (2.5-4.0) 06/24/24 20:30 Albumin/Globulin Ratio 1.5 (0.9-2) 06/24/24 20:30 Urine Color Dark Yellow 06/24/24 21:00 Urine Appearance Clear (Clear) 06/24/24 21:00 Urine pH 5.5 (4.5-7.5) 06/24/24 21:00 Ur Specific [place] 1.027 (1.000-1.030) 06/24/24 21:00 Urine Protein 1+ (Negative) H 06/24/24 21:00 Urine Glucose (UA) Negative (Negative) 06/24/24 21:00 Urine Ketones Trace (Negative) H 06/24/24 21:00 Urine Blood Negative (Negative) 06/24/24 21:00 Urine Nitrite Negative (Negative) 06/24/24 21:00 Urine Bilirubin 1+ (Negative) H 06/24/24 21:00 Urine Urobilinogen Negative (Negative) 06/24/24 21:00 Ur Leukocyte Esterase 1+ (Negative) H 06/24/24 21:00 Urine WBC (Auto) 11-20 /hpf (0-5) H 06/24/24 21:00 Urine RBC (Auto) 11-20 /hpf (0-2) H 06/24/24 21:00 U Hyaline Cast (Auto) >20 /lpf (0-2) H 06/24/24 21:00 U Epithel Cells (Auto) 3-5 /hpf (0-2) H 06/24/24 21:00 Urine Bacteria (Auto) None Seen (None Seen) 06/24/24 21:00 Hyaline Casts Present /lpf (None Presnt) A 06/24/24 21:00 Impressions Chest X-Ray 06/24/24 20:26 Exam(s): XR CXR 1 VIEW EXAM: XR Chest, 1 View CLINICAL HISTORY: Pre op. TECHNIQUE: Frontal view of the chest. COMPARISON: 09-01-2023. FINDINGS: Lungs: No infiltrate. No atelectasis. No CHF. Pleural space: No pleural effusion. No pneumothorax. Heart: Unremarkable. No cardiomegaly. Mediastinum: Unremarkable. Normal mediastinal contour. Bones/joints: No acute fracture. Dextroscoliosis with degenerative changes of the thoracic spine. Status post right shoulder replacement. IMPRESSION: No acute abnormality. Electronically signed by: Andrez Yun M.D. 06/24/24 23:09 PM Hip X-Ray 06/24/24 20:26 Exam(s): XR LEFT HIP EXAM: XR Left Hip With Pelvis When Performed, 4 Views CLINICAL HISTORY: L hip pain s/p fall. TECHNIQUE: Four views of the left hip with pelvis when performed. COMPARISON: CT pelvis 2023. FINDINGS: Bones/joints: Acute fracture through the left femoral neck with mild superior displacement and impaction of the distal fracture fragment. No other fracture. No dislocation of the femoral head relative to the acetabulum. Bones are spinning. Degenerative postoperative changes of the lower lumbar spine. Soft tissues: Vascular calcifications. IMPRESSION: Acute fracture through the left femoral neck with mild superior displacement and impaction of the distal fracture fragment. Electronically signed by: Andrez Yun M.D. 06/24/24 23:07 PM Shoulder X-Ray 06/24/24 20:26 Exam(s): XR LEFT SHOULDER, 2+ views EXAM: XR Left Shoulder Complete, 4 Views CLINICAL HISTORY: L shoulder pain s/p fall. TECHNIQUE: Four views of the left shoulder. COMPARISON: No relevant prior studies available. FINDINGS: Bones/joints: Bones are osteopenic. No acute fracture. No dislocation. Soft tissues: Unremarkable. IMPRESSION: No acute post-traumatic abnormality. Electronically signed by: Andrez Yun M.D. 06/24/24 23:[address] 06/24/24 20:29 Exam(s): CT C SPINE EXAM: CT Cervical Spine Without Intravenous Contrast CLINICAL HISTORY: fall from standing. TECHNIQUE: Axial computed tomography images of the cervical spine without intravenous contrast. CTDI is 21.8 mGy and DLP is 1193.76 mGy-cm. Automated exposure control was utilized for the study. A dose lowering technique was utilized adhering to the principles of ALARA. COMPARISON: 09/01/2023 FINDINGS: Vertebrae: No acute fracture. Maintenance of height of the vertebral bodies. No subluxation. Discs/spinal canal/neural foramina: Mild multilevel degenerative changes. Soft tissues: Prevertebral soft tissues are unremarkable. IMPRESSION: No acute post-traumatic abnormality. Electronically signed by: Andrez Yun M.D. 06/24/24 22:[address] 06/24/24 20:29 Exam(s): CT HEAD Without Contrast EXAM: CT Head Without Intravenous Contrast CLINICAL HISTORY: fall from standing; on coumadin. TECHNIQUE: Axial computed tomography images of the head/brain without intravenous contrast. CTDI is 26.72 mGy and DLP is 564.79 mGy-cm. Automated exposure control was utilized for the study. A dose lowering technique was utilized adhering to the principles of ALARA. COMPARISON: 09/01/2023. FINDINGS: Brain: Age-appropriate generalized atrophy. No acute stroke. 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 Moderate supratentorial periventricular and subcortical white matter changes. No acute hemorrhage or abnormal extra-axial fluid collection. Ventricles: No hydrocephalus. No midline shift. Bones/joints: Unremarkable. No acute fracture. Soft tissues: Unremarkable. Sinuses: Bilateral maxillary sinus air-fluid levels. Bilateral ethmoid air cell and left frontal sinus air-fluid levels. Minimal fluid in the right vanessa-sphenoid sinus. IMPRESSION: No acute post-traumatic intracranial abnormality. Diffuse paranasal sinus air-fluid levels. Electronically signed by: Andrez Yun M.D. 06/24/24 22:42 PM Diagnostic Findings EKG as per my interpretation :Rate 60, NSR, LAD, LAFB, LVH, incomplete RBBB no ischemia
--- OUTSIDE RECORDS SUMMARY | 2024-06-24 23:53 | External Medical Summary | Summary of Care ---
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 Increased risk for hereditary hemochromatosis. S/P hip [...] mRNA, LNP-s, No Pre serve, 2-Dose Series ([employer]) 10/22/2020,10/01/2020 COVID-19, LNP-s, No Preserve , Cordell-sucrose, [...] encounter Miscellaneous Notes * Telephone Encounter - Merlene Mandel OSA - 02/16/2024 11:00 AM EDT Switched appointment to Cysto.noted in appt notes as well. * Telephone Encounter - Bear Craven MD - 02/16/2024 10:53 AM EDT Noted, switch upcoming visit in March to possible cystoscopy. Thx, HM * Telephone Encounter - Johanne Calvo LPN - 02/16/2024 10:10 AM EDT Patient returned call and states he still has not voided. He has abd pressure and 2 "lumps" in the left/right of his groin, he notes are visible and uncomfortable. He is going to proceed to [facility] ED for urgent evaluation. FYI * Telephone Encounter - Monet Toscano OSA - 02/16/2024 10:03 AM EDT Reason for patient's call: pt calling back for advice Caller was transferred to [facility] at the clinic. * Telephone Encounter - Johanne Calvo LPN - 02/16/2024 8:45 AM EDT Patient call with concerns of urinary retention C/o- not feeling good, sick feeling, taking chills, self cathed at 3 am d/t inability to empty, he has not checked his temperature. He is pushing fluids. Patient advised may need to go to [place], he says he will do whatever the doctor advises. He states last Monday he tested positive for covid. I advised could be in relation to illness will route to provider for further recommendations. documented in this encounter Plan of Treatment Upcoming Encounters Date Type Department Care Team (Late st Contact Info) Description 02/19/2024 9:40 AM EDT Anticoagulation Pharmacy, [address] [place] [address] [place] [address] 02/23/2024 2:30 PM EDT Cardiac Studies Cardiac Studies, [address] [place] [address] 03/18/2024 10:40 AM EDT Office Visit Dermatology [address] [place] [address] Maribel Cazares PA-C [address] [place] [address] [place] [address] 03/27/2024 10:45 AM EDT Procedure Only Urology, [facility] [address] [place] [address] Bear Craven MD [address] [place] [address] 06/03/2024 11:00 AM EST Office Visit Family Medicine [address] [place] [phone] Sheri Carpio [address] [place] [address] 06/06/2024 10:00 AM EST Office Visit Cardiology, [facility] [address] [place] [address] Iain Ward PA-C 132 [facility] [place] [address] Health Maintenance Due Date Last Done Comments [...] Directives occurred with: Not Discussed Care Teams Cell Liner Relationship Specialty Start Date End Date Xiomara Sapp MD [address] [place] [address] [place] [address] PCP - General Family Medicine 11/16/22 documented as of this encounter
--- OUTSIDE RECORDS SUMMARY | 2024-06-24 23:53 | External Medical Summary | Summary of Care ---
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 Increased risk for hereditary hemochromatosis. S/P hip [...] mRNA, LNP-s, No Pre serve, 2-Dose Series (Actively Learn) 10/22/2020,10/01/2020 COVID-19, LNP-s, No Preserve , Cordell-sucrose, [...] uncomfortable. He is going to proceed to [facility] ED for urgent evaluation. FYI * Telephone Encounter - Monet Toscano OSA - 02/16/2024 10:03 AM EDT Reason for patient's call: pt calling back for advice Caller was transferred to [facility] at the clinic. * Telephone Encounter - Johanne Calvo LPN - 02/16/2024 8:45 AM EDT Patient call with concerns of urinary retention C/o- not feeling good, sick feeling, taking chills, self cathed at 3 am d/t inability to empty, he has not checked his temperature. He is pushing fluids. Patient advised may need to go to [place], he says he will do whatever the doctor advises. He states last Monday he tested positive for covid. I advised could be in relation to illness will route to provider for further recommendations. documented in this encounter Plan of Treatment Upcoming Encounters Date Type Department Care Team (Late st Contact Info) Description 02/19/2024 9:40 AM EDT Anticoagulation Pharmacy, [address] [place] [id number] [place] [address] 02/23/2024 2:30 PM EDT Cardiac Studies Cardiac Studies, [address] [place] [address] 03/18/2024 10:40 AM EDT Office Visit Dermatology [address] [place] [address] Maribel Cazares PA-C [address] [place] [address] [place] [address] 03/27/2024 10:45 AM EDT Office Visit Urology, [facility] [address] [facility] [place] [address] Bear Craven MD [address] [place] [address] 06/03/2024 11:00 AM EST Office Visit Family Medicine [address] [place] [phone] Sheri Carpio, [address] [place] [address] 06/06/2024 10:00 AM EST Office Visit Cardiology, [facility] [address] [place] [address] Iain Ward PA-C [address] [place] [address] Health Maintenance Due Date Last Done Comments [...] Directives occurred with: Not Discussed Care Teams Catering Truck Driver Relationship Specialty Start Date End Date Xiomara Sapp MD [address] [place] [address] [place] [address] PCP - General Family Medicine 11/16/22 documented as of this encounter
--- OUTSIDE RECORDS SUMMARY | 2024-06-24 23:53 | External Medical Summary | Summary of Care ---
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 Increased risk for hereditary hemochromatosis. S/P hip [...] mRNA, LNP-s, No Pre serve, 2-Dose Series (Quemulus) 10/22/2020,10/01/2020 COVID-19, LNP-s, No Preserve , Cordell-sucrose, [...] uncomfortable. He is going to proceed to [facility] ED for urgent evaluation. FYI * Telephone Encounter - Monet Toscano OSA - 02/16/2024 10:03 AM EDT Reason for patient's call: pt calling back for advice Caller was transferred to [facility] at the clinic. * Telephone Encounter - Johanne Calvo LPN - 02/16/2024 8:45 AM EDT Patient call with concerns of urinary retention C/o- not feeling good, sick feeling, taking chills, self cathed at 3 am d/t inability to empty, he has not checked his temperature. He is pushing fluids. Patient advised may need to go to [place], he says he will do whatever the doctor advises. He states last Monday he tested positive for covid. I advised could be in relation to illness will route to provider for further recommendations. documented in this encounter Plan of Treatment Upcoming Encounters Date Type Department Care Team (Late st Contact Info) Description 02/19/2024 9:40 AM EDT Anticoagulation Pharmacy, [address] [place] [address] [place] [address] 02/23/2024 2:30 PM EDT Cardiac Studies Cardiac Studies, [address] [place] [address] 03/18/2024 10:40 AM EDT Office Visit Dermatology [address] [place] [address] Maribel Cazares PA-C [address] [place] [address] [place] [address] 03/27/2024 10:45 AM EDT Office Visit Urology, [address] [place] [address] Bear Craven MD [address] [place] [address] 06/03/2024 11:00 AM EST Office Visit Family Medicine [address] [place] [phone] Sheri Carpio [address] [place] [address] 06/06/2024 10:00 AM EST Office Visit Cardiology, [facility] [address] [place] [address] Iain Ward PA-C [address] [place] [address] Health Maintenance Due Date Last Done Comments [...] Directives occurred with: Not Discussed Care Teams Cashiers Supervisor Relationship Specialty Start Date End Date Xiomara Sapp MD [address] [place] [address] [place] [address] PCP - General Family Medicine 11/16/22 documented as of this encounter
--- OUTSIDE RECORDS SUMMARY | 2024-06-24 23:53 | External Medical Summary | Summary of Care ---
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 Increased risk for hereditary hemochromatosis. S/P hip [...] mRNA, LNP-s, No Pre serve, 2-Dose Series (Mod[employer]) 10/22/2020,10/01/2020 COVID-19, LNP-s, No Preserve , Cordell-sucrose, [...] uncomfortable. He is going to proceed to [facility] ED for urgent evaluation. FYI * Telephone Encounter - Monet Toscano OSA - 02/16/2024 10:03 AM EDT Reason for patient's call: pt calling back for advice Caller was transferred to [facility] at the clinic. * Telephone Encounter - Johanne Calvo LPN - 02/16/2024 8:45 AM EDT Patient call with concerns of urinary retention C/o- not feeling good, sick feeling, taking chills, self cathed at 3 am d/t inability to empty, he has not checked his temperature. He is pushing fluids. Patient advised may need to go to [place], he says he will do whatever the doctor advises. He states last Monday he tested positive for covid. I advised could be in relation to illness will route to provider for further recommendations. documented in this encounter Plan of Treatment Upcoming Encounters Date Type Department Care Team (Late st Contact Info) Description 02/19/2024 9:40 AM EDT Anticoagulation Pharmacy, [address] [place] [address] [place] [address] 02/23/2024 2:30 PM EDT Cardiac Studies Cardiac Studies, [address] [place] [address] 03/18/2024 10:40 AM EDT Office Visit Dermatology [address] [place] [address] Maribel Cazares PA-C [address] [place] [address] [place] [address] 03/27/2024 10:45 AM EDT Office Visit Urology, [facility] [address] [facility] [place] [address] Bear Craven MD [address] [place] [address] 06/03/2024 11:00 AM EST Office Visit Family Medicine [address] [place] [phone] Sheri Carpio, [address] [place] [address] 06/06/2024 10:00 AM EST Office Visit Cardiology, [facility] [address] [place] [address] Iain Ward PA-C [address] [place] [address] Health Maintenance Due Date Last Done Comments [...] Directives occurred with: Not Discussed Care Teams Instructional Manager Relationship Specialty Start Date End Date Xiomara Sapp MD [address] [place] [address] [place] [address] PCP - General Family Medicine 11/16/22 documented as of this encounter
[2024-06-25] MEDS: ACETAMINOPHEN 325 MG TAB PO STA (00:20)
[2024-06-25 00:39] LABS: Magnesium 2.1 mg/dl (1.7-2.4)
[2024-06-25 01:07] LABS: Thyroid Stimulating Hormone 2.748 uIu/ml (0.300-4.500)
[2024-06-25] MEDS ORDERED: bisacodyL 10 MG SUPP PR PRN (01:23)
[2024-06-25] MEDS ORDERED: NALOXONE HCL 0.4 MG/1 ML VIAL/CARP IV PRN (01:23)
[2024-06-25] MEDS ORDERED: FLUTICASONE PROPIONATE NA SPR 16 GM BTL PRN (01:28)
[2024-06-25] MEDS ORDERED: AZELASTINE HCL 0.1% NASAL 200 SPRAYS/27,400 MCG BTL PRN (01:28)
[2024-06-25] MEDS: SODIUM CHLORIDE 0.9% 1,000 ML IV ONE (02:15)
[2024-06-25] MEDS: MoRPHine SULFATE 2 MG/ML CARP IV PRN ×2 (02:32→23:19)
[2024-06-25 05:22] LABS: Basophils # (auto) 0.01 K/uL (0.00-0.20); Basophils % (auto) 0.2 %; Eosinophils # (auto) 0.14 K/uL (0.00-0.50); Eosinophils % (auto) 2.4 %; Hematocrit (blood only) 35.7 % (42.0-52.0); Hemoglobin 12.3 g/dl (14.0-18.0); Immature Granulocytes # (auto) 0.02 K/uL (0.01-0.20); Immature Granulocytes % (auto) 0.3 %; Lymphocytes # (auto) 0.28 K/uL (1.20-3.40); Lymphocytes % (auto) 4.8 %; Mean Corpuscular Hemoglobin 30.1 pg (25.0-34.0); Mean Corpuscular Hgb Conc 34.5 g/dL (32.0-36.0); Mean Corpuscular Volume 87.5 fL (80.0-100.0); Mean Platelet Volume 9.5 fL (9.4-12.4); Monocytes # (auto) 0.61 K/uL (0.11-0.59); Monocytes % (auto) 10.4 %; Neutrophils # (auto) 4.83 K/uL (1.40-6.50); Neutrophils % (auto) 81.9 %; Platelet Count 119 K/uL (130-400); RDW Coefficient of Variation 13.1 % (11.5-14.5); Red Blood Count 4.08 M/uL (4.70-6.10); White Blood Count 5.89 K/ul (4.8-10.8)
[2024-06-25 05:29] LABS: BUN Creatinine Ratio 36.8 (10-20); Calcium 8.3 mg/dl (8.6-10.3); Creatinine Clr Calc Pharmacy 75.7 ml/min; Potassium 4.1 mmol/L (3.5-5.1)
[2024-06-25] MEDS: PHYTONADIONE 5 MG in DEXTROSE 5% 50 ML IV ONE (05:42)
[2024-06-25 05:43] LABS: INR 2.4 (0.9-1.1); Partial Thromboplastin Ratio 1.7; Partial Thromboplastin Time 45 Seconds (21-31); Prothrombin Time 24.5 Seconds (9.0-12.0)
--- NOTE | 2024-06-25 06:21 | Orthopedic Consultation ---
Date of Service June 25, 2024 Assessment & Plan (1) Closed fracture of neck of left femur: I went over with him the diagnosis and treatment options at bedside. I recommended surgery for a left hip hemiarthroplasty. He understands the risk, benefits, and alternatives to procedures elected proceed. Questions were answered at bedside. He is currently on Coumadin with an INR 2.4. I plan to do the procedure first thing tomorrow morning. He is on the OR schedule. He is able to eat today. The medical team will work on making sure he is medically optimized throughout the day today and to work on getting his INR down a little bit. History of Present Illness Reason for Consultation: Left femoral neck fracture. Requesting Physician: . Attending Physician: Dmitry Berumen DO Raghavendra is a pleasant 84-year-old male who is a community ambulator without assistance. He was at home yesterday rolling up a hose when he tripped and fell onto his left hip. He had left hip and shoulder pain. He came to the emergency room and radiographs demonstrated a displaced left femoral neck fracture. Orthopedics was consulted to evaluate and treat.. Allergies Allergy/AdvReac Type Severity Reaction Status Date / Time vancomycin Allergy Mild red, itchy Verified 06/24/24 23:54 Sulfa (Sulfonamide Allergy Unknown "Everyone Verified 06/24/24 23:54 Antibiotics) in family" Home Medications Medication Instructions Recorded Confirmed Type azelastine 137 mcg (0.1 %) nasal 2 spray intranasal BID PRN RHINITIS 10/01/18 06/24/24 History spray cholecalciferol (vitamin D3) 125 5,000 unit PO QAM 10/01/18 06/24/24 History mcg (5,000 unit) tablet (Vitamin D3) fluticasone propionate 50 2 spray intranasal QAM PRN 10/01/18 06/24/24 History mcg/actuation nasal Congestion spray,suspension (Flonase Allergy Relief) furosemide 40 mg tablet (Lasix) 40 mg PO DAILY PRN fluid 10/01/18 06/24/24 History accumulation or wt gain magnesium oxide 400 mg PO QAM 10/01/18 06/24/24 History warfarin 5 mg tablet (Jantoven) 5 - 7.5 mg PO UD 10/01/18 06/24/24 History folic acid 1 mg tablet 1 mg PO QAM 01/21/22 06/24/24 History cyanocobalamin (vitamin B-12) 5,000 mcg sublingual DAILY 09/01/23 06/24/24 History 5,000 mcg sublingual tablet (Vitamin B-12) omeprazole 20 mg capsule,delayed 20 mg PO DAILYBB 11/15/23 06/24/24 History release acetaminophen 325 mg tablet 325 mg PO Q6 PRN Pain 06/24/24 06/24/24 History finasteride 5 mg tablet 5 mg PO QAM 06/24/24 06/24/24 History krill 1,000 mg-omega-3 170 mg-dha 1 cap PO DAILY 06/24/24 06/24/24 History 50 mg-epa 80 [id number]-sgjrw capsule (krill oil) metoprolol succinate 25 mg 37.5 mg PO QAM 06/24/24 06/24/24 History tablet,extended release 24 hr nitrofurantoin 100 mg PO AMHS 06/24/24 06/24/24 History monohydrate/macrocrystals 100 mg capsule potassium chloride 10 mEq 10 meq PO QAM PRN WHEN TAKING 06/24/24 06/24/24 History tablet,extended release(part/cryst) FUROSEMIDE tamsulosin 0.4 mg capsule 0.4 mg PO QAM 06/24/24 06/24/24 History Past Med/Surg History Problem List Fall from standing (Acute) Closed fracture of neck of left femur (Acute) Arthritis of knee, left Accelerated junctional rhythm Urinary retention Dizziness (Acute) Ambulatory dysfunction (Acute) Lower leg DVT (deep venous thromboembolism), acute HX Osteoarthritis of right hip BPH (benign prostatic hyperplasia) History of lumbar spinal fusion x6 Encounter for pre-operative examination Abdominal pain of unknown etiology Callus of foot Dermatitis of both feet Trochanteric bursitis of left hip Encounter for pre-operative examination Status post reverse total replacement of right shoulder (~02/2021) Osteoarthritis of left knee Encounter for pre-operative examination Special screening for malignant neoplasm of colon Deep vein thrombosis x2, after surgery, LLE DVT (2011); f/u [facility] clinic [facility] Hemochromatosis Hereditary hemochromatosis, phlebotomy q6 months per GI (most recent 08/2020 per GI), (per PCP 12/2020, recent transferrin level WNL) Hyperlipidemia Hypertension controlled, stable per pt History of tooth extraction Status post Mohs surgery for basal cell carcinoma Basal cell carcinoma of nose hx GERD (gastroesophageal reflux disease) Controlled, stable per pt History of esophagogastroduodenoscopy (EGD) History of colonoscopy Paroxysmal SVT (supraventricular tachycardia) (Chronic) Follows with [facility] TIA (transient ischemic attack) (Chronic) TIA (2015/no evidence of CVA on MRI per PCP records) Dyslipidemia (Chronic) following with PCP and cardiology for management Hx of cholecystectomy (Chronic) History of back surgery (Chronic) x6 (including rods/screws) H/O nasal polypectomy (Chronic) H/O left knee surgery (Chronic) Pulmonary embolism Post-op (2011) Medical History History of blood transfusion last transfusion approx. 1985 History of difficult intubation [place]20[place] [facility] 1, glidescope 3, ETT 7.5 at [facility]. Carotid artery aneurysm History of anesthesia reaction hallucinations for approximately 5 days after prostate surgery in [place] Hearing deficit No aids Aortic root dilatation Moderately enlarged, unchanged compared to 02/04/2020 (per 11/09/20 DSE report) Surgical History H/O cataract extraction History of reverse total replacement of right shoulder joint Hx of basal cell carcinoma excision History of prostate surgery [place]URP (11/13/20; [facility] 1, glidescope 3, ETT 7.5 at [facility] History of total right hip replacement Family History Brother Family hx colonic polyps Other No family history of adverse response to anesthesia Social History Smoking Status: Never smoker Second Hand Exposure: No; Do You Dip or Chew Tobacco: No; Hx Alcohol Use: No Hx Substance Use: No Preferred Language: Luxembourgish Communication Ability: Effective Sweat Band Sewer Required: No Beliefs That Will Affect Care: None Current Living Situation: Spouse current occupational status: retired Feels Safe at Home: Yes Safety Concerns: Feels Safe At This Time Assistive Devices: Cane, Glasses and Walker Review of Systems All systems reviewed & are unremarkable except as noted in HPI & below. Physical Exam On physical exam of the left hip, he has pain with logroll of his left leg. He has active dorsiflexion plantarflexion of his left ankle. There are no abrasions, lesions, or lacerations of the skin.. Constitutional WD/WN, vitals as above Eyes PERRL, conjunctivae normal, anicteric sclerae ENMT external ear and nose normal, oropharynx normal Neck trachea midline, no thyromegaly Respiratory normal respiratory effort Cardiovascular RRR, no murmur, no edema Gastrointestinal (Abdomen) normal bowel sounds, soft, nontender, no hepatosplenomegaly Psychiatric A+Ox3, euthymic affect Results & Data Results & Data Laboratory Results . Diagnostic Findings X-rays of the left hip show a displaced left femoral neck fracture.. PG Care Time/CCT Total # of Minutes Spent Total Time Spent with Patient: Total time spent is greater than 50% in coordination of care (as documented) at patient's floor/unit and/or counseling patient: Coding Level of Care Code 55923 IN/OBS CONSULT LVL 4,60M (57 - DECISION FOR SURGERY) Diagnoses Closed fracture of neck of left femur S72.002A
[2024-06-25 07:30] LABS: Estimated Average Glucose 103 mg/dl; Hemoglobin A1C 5.2 % (4.5-5.6)
[2024-06-25] MEDS: FOLIC ACID 1 MG TAB PO SCH (10:02)
[2024-06-25] MEDS: PANTOprazole 40 MG TAB PO SCH (10:02)
[2024-06-25] MEDS: FINASTERIDE 5 MG TAB PO SCH (10:02)
[2024-06-25] MEDS: TAMSULOSIN HCL 0.4 MG CAP PO SCH (10:03)
[2024-06-25] MEDS: METOPROLOL SUCC 25MG EXT REL TAB PO SCH (10:03)
--- NOTE | 2024-06-25 10:09 | Electrocardiogram Report ---
Test Reason : Blood Pressure : */* mmHG Vent. Rate : 62 BPM Atrial Rate : 62 BPM P-R Int : 194 ms QRS Dur : 108 ms QT Int : 422 ms P-R-T Axes : 81 -69 73 degrees QTcB Int : 428 ms Sinus rhythm with Premature atrial complexes in a pattern of bigeminy Left axis deviation Incomplete right bundle branch block Minimal voltage criteria for LVH, may be normal variant Septal infarct , age undetermined Abnormal ECG When compared with ECG of 16-Mar-2023 11:26, Septal infarct is now Present Confirmed by Tej Lau ([id number]) on 06/25/2024 10:09:10 AM Referred By: Confirmed By: Tej Lau
[2024-06-25 12:47] LABS: Hematocrit (blood only) 35.8 % (42.0-52.0); Hemoglobin 12.4 g/dl (14.0-18.0)
--- NOTE | 2024-06-25 13:07 | Anesthesiology Consultation ---
Date of Service June 25, 2024 Assessment & Plan Chart Review Chart Review: Acceptable Risk for Surgery and Patient NOT seen in Pre Admission Testing Consults Requested none ASA ASA4 Proposed Anesthesia Anesthesia Type: General Anesthesia Line Insertion: Arterial line History Surgery Operation Date: 06/26/24 07:30 Proposed Procedures p Left Hip Hemiarthroplasty - Pato Paez DO Height/Weight Height: 6 ft 1 in Weight: 74 kg Allergies Allergy/AdvReac Type Severity Reaction Status Date / Time vancomycin Allergy Mild red, itchy Verified 06/24/24 23:54 Sulfa (Sulfonamide Allergy Unknown "Everyone Verified 06/24/24 23:54 Antibiotics) in family" Medications Home Medications Medication Instructions Recorded Confirmed Last Taken azelastine 137 mcg (0.1 %) nasal 2 spray intranasal BID PRN RHINITIS 10/01/18 06/24/24 02/26/21 07:30 spray cholecalciferol (vitamin D3) 125 5,000 unit PO QAM 10/01/18 06/24/24 06/27/22 mcg (5,000 unit) tablet (Vitamin D3) fluticasone propionate 50 2 spray intranasal QAM PRN 10/01/18 06/24/24 02/26/21 07:30 mcg/actuation nasal Congestion spray,suspension (Flonase Allergy Relief) furosemide 40 mg tablet (Lasix) 40 mg PO DAILY PRN fluid 10/01/18 06/24/24 08/15/18 accumulation or wt gain magnesium oxide 400 mg PO QAM 10/01/18 06/24/24 06/27/22 warfarin 5 mg tablet (Jantoven) 5 - 7.5 mg PO UD 10/01/18 06/24/24 06/27/22 folic acid 1 mg tablet 1 mg PO QAM 01/21/22 06/24/24 06/27/22 cyanocobalamin (vitamin B-12) 5,000 mcg sublingual DAILY 09/01/23 06/24/24 Unknown 5,000 mcg sublingual tablet (Vitamin B-12) omeprazole 20 mg capsule,delayed 20 mg PO DAILYBB 11/15/23 06/24/24 Unknown release acetaminophen 325 mg tablet 325 mg PO Q6 PRN Pain 06/24/24 06/24/24 Unknown finasteride 5 mg tablet 5 mg PO QAM 06/24/24 06/24/24 Unknown krill 1,000 mg-omega-3 170 mg-dha 1 cap PO DAILY 06/24/24 06/24/24 Unknown 50 mg-epa 80 hd-[id number]-rhode capsule (krill oil) metoprolol succinate 25 mg 37.5 mg PO QAM 06/24/24 06/24/24 Unknown tablet,extended release 24 hr nitrofurantoin 100 mg PO AMHS 06/24/24 06/24/24 Unknown monohydrate/macrocrystals 100 mg capsule potassium chloride 10 mEq 10 meq PO QAM PRN WHEN TAKING 06/24/24 06/24/24 Unknown tablet,extended release(part/cryst) FUROSEMIDE tamsulosin 0.4 mg capsule 0.4 mg PO QAM 06/24/24 06/24/24 Unknown Active Medications Generic Name Dose Route Start Last Admin Trade Name Freq PRN Reason Stop Dose Admin Finasteride 5 mg 06/25/24 09:00 06/25/24 10:02 Finasteride 5 Mg Tab PO 07/25/24 08:59 5 mg QAM CONRAD Administration Folic Acid 1 mg 06/25/24 09:00 06/25/24 10:02 Folic Acid 1 Mg Tab PO 07/25/24 08:59 1 mg QAM CONRAD Administration Sodium Chloride 1,000 mls @ 60 mls/hr 06/25/24 01:27 06/25/24 02:15 Nss IV 06/25/24 18:06 60 mls/hr .[id number] ONE Administration Metoprolol Succinate 25 mg 06/25/24 09:00 06/25/24 10:03 Metoprolol Succ 25mg Ext Rel Tab PO 07/25/24 08:59 25 mg QAM CONRAD Administration Morphine Sulfate 2 mg 06/24/24 23:31 06/25/24 10:24 Morphine Sulfate 2 Mg/Ml Carp IV 07/08/24 23:30 2 mg Q3H PRN Administration Pain Pantoprazole Sodium 40 mg 06/25/24 06:30 06/25/24 10:02 Pantoprazole 40 Mg Tab PO 07/25/24 06:29 40 mg DAILYBB CONRAD Administration Tamsulosin HCl 0.4 mg 06/25/24 09:00 06/25/24 10:03 Tamsulosin Hcl 0.4 Mg Cap PO 07/25/24 08:59 0.4 mg QAM CONRAD Administration Past Medical History Medical History History of blood transfusion last transfusion approx. 1985 History of difficult intubation [place]UR[place] (11/13/20; [facility] [place] Grade view 1, glidescope 3, ETT 7.5 at [facility]. Carotid artery aneurysm History of anesthesia reaction hallucinations for approximately 5 days after prostate surgery in [place] Hearing deficit No aids Aortic root dilatation Moderately enlarged, unchanged compared to 02/04/2020 (per 11/09/20 DSE report) anemia Hx/o PSVT PAC's Hx/o TIA Carotid artery atherosclerosis/plaque DVT's/PE Exercise / Class Metabolic Activity III < 4 Walking/Shop/Light housework Past Family History Family History Brother Family hx colonic polyps Other No family history of adverse response to anesthesia Past Surgical History Surgical History H/O cataract extraction History of reverse total replacement of right shoulder joint Hx of basal cell carcinoma excision History of prostate surgery TURP (11/13/20; [facility] Grade view 1, glidescope 3, ETT 7.5 at [facility] History of total right hip replacement Past Anesthesia History No Hx of Anesthesia Complications and No Family Hx of Anesthesia Complications History of PONV No Hx of PONV and No Hx of Motion Sickness Social History Smoking Status: Never smoker Do You Dip or Chew Tobacco: No Hx Alcohol Use: No Hx Substance Use: No substance use type: does not use Physical Exam Vital Signs Last Vital Signs Temp 36.7 C 06/25/24 12:10 Pulse 55 L 06/25/24 12:10 Resp 18 06/25/24 12:10 BP 126/76 06/25/24 12:10 Pulse Ox 97 06/25/24 12:10 O2 Del Method Room Air 06/25/24 12:10 Testing Laboratory Results 06/25/24 11:55 06/25/24 04:36 PT 24.5 Seconds (9.0-12.0) H 06/25/24 04:36 INR 2.4 (0.9-1.1) H 06/25/24 04:36 APTT 45 Seconds (21-31) H 06/25/24 04:36 Hemoglobin A1c 5.2 % (4.5-5.6) 06/24/24 22:30 Urine Color Dark Yellow 06/24/24 21:00 Urine Appearance Clear (Clear) 06/24/24 21:00 Urine pH 5.5 (4.5-7.5) 06/24/24 21:00 Ur Specific Thayer 1.027 (1.000-1.030) 06/24/24 21:00 Urine Protein 1+ (Negative) H 06/24/24 21:00 Urine Glucose (UA) Negative (Negative) 06/24/24 21:00 Urine Ketones Trace (Negative) H 06/24/24 21:00 Urine Nitrite Negative (Negative) 06/24/24 21:00 Ur Leukocyte Esterase 1+ (Negative) H 06/24/24 21:00 Urine WBC (Auto) 11-20 /hpf (0-5) H 06/24/24 21:00 Urine RBC (Auto) 11-20 /hpf (0-2) H 06/24/24 21:00 U Hyaline Cast (Auto) >20 /lpf (0-2) H 06/24/24 21:00 U Epithel Cells (Auto) 3-5 /hpf (0-2) H 06/24/24 21:00 Urine Bacteria (Auto) None Seen (None Seen) 06/24/24 21:00 Blood Type A Negative 06/25/24 00:08 Antibody Screen NEGATIVE 06/25/24 00:08 06/24/24 21:00 Urine Culture - Preliminary Urine,Straight Cath No growth - Less than 1,000 colonies/mL, Final report to follow. Electrocardiogram Date: 06/24/24 Findings: + NSR @ (SR @ 62 w/ PAC's in pattern of [place]ini;IRBBB;septal infarct,age?) and + LVH Chest X-Ray Date: 06/24/24 Findings: + NAD Echocardiogram Date: 03/16/23 EF: 55% LV Function: normal RWMA: + none Other Findings: + LVH (mild) and + diastolic dysfunction (Grade 1) Valvular Disease: + no significant valvular disease moderate Ao root dilation Other Testing carotid U/S [id number]/15/[id number] atherosclerotic plaque w/o si. H/D stenosis
[2024-06-25 13:19] LABS: INR 1.6 (0.9-1.1); Prothrombin Time 16.9 Seconds (9.0-12.0)
--- NOTE | 2024-06-25 13:48 | Hospitalist Progress Note ---
Date of Service June 25, 2024 Assessment & Plan (1) Closed fracture of neck of left femur: (2) Fall from standing: (3) Contusion of left shoulder, initial encounter: (4) Paroxysmal SVT (supraventricular tachycardia): (5) Hemochromatosis: (6) History of recurrent deep vein thrombosis (DVT): Plan: On chronic anticoagulation with warfarin Plan Patient status post fall with left hip fracture, reviewed orthopedics consultation, anticipate repair on 06/26/2024 Scheduled Tylenol for pain control As needed tramadol and morphine for pain control Continue other home medications Resume anticoagulation/VTE prophylaxis as soon as possible after surgery Admission and Anticipated Discharge Date Admission Date: June 24, 2024 Subjective Patient reports his pain is controlled. No shortness of breath. Physical Exam Physical Exam: Constitutional: Alert, nontoxic HEENT: Mucous membranes moist. Lungs: Clear to auscultation, decreased, no wheezes rales or rhonchi CV: S1-S2, regular Abdomen: Soft, nontender, nondistended Extremities: No significant edema, left hip tenderness to palpation, left shoulder pain to range of motion testing Neuro: No focal deficits Psych: Cooperative, normal mood Results & Data Results & Data Vital Signs (Past 12 Hours) Vital Signs Temp Pulse Pulse Resp BP BP Pulse Ox 06/25/24 12:10 36.7 C 55 L 18 126/76 97 06/25/24 10:05 36.5 C 64 19 119/65 99 06/25/24 10:05 06/25/24 07:10 67 06/25/24 07:03 76 15 92 06/25/24 07:01 148/92 H 06/25/24 06:51 59 L 14 98 06/25/24 06:09 58 L 17 97 06/25/24 05:24 06/25/24 05:03 57 L 17 133/66 98 06/25/24 04:00 56 L 18 125/71 98 06/25/24 03:00 57 L 23 139/78 98 06/25/24 01:57 59 L 18 134/67 Pulse Ox O2 Del Method O2 Del Method 06/25/24 12:10 Room Air 06/25/24 10:05 Room Air 06/25/24 10:05 98 Room Air 06/25/24 07:10 06/25/24 07:03 06/25/24 07:01 06/25/24 06:51 06/25/24 06:09 Room Air 06/25/24 05:24 95 Room Air 06/25/24 05:03 Room Air 06/25/24 04:00 Room Air 06/25/24 03:00 Room Air 06/25/24 01:57 Diagnostic Findings Reviewed imaging, laboratory and diagnostic studies. Pertinent findings as below. Hemoglobin 12.4, stable INR 1.6 after vitamin K, decreased
[2024-06-25] MEDS: ACETAMINOPHEN 500 MG TAB PO SCH (14:07)
[2024-06-26] MEDS: traMADol HCL 50 MG TABLET PO PRN (01:35)
[2024-06-26 06:31] LABS: Hematocrit (blood only) 36.6 % (42.0-52.0); Hemoglobin 12.5 g/dl (14.0-18.0); Mean Corpuscular Hemoglobin 30.2 pg (25.0-34.0); Mean Corpuscular Hgb Conc 34.2 g/dL (32.0-36.0); Mean Corpuscular Volume 88.4 fL (80.0-100.0); Mean Platelet Volume 9.2 fL (9.4-12.4); Platelet Count 124 K/uL (130-400); RDW Coefficient of Variation 13.2 % (11.5-14.5); RDW Standard Deviation 42.6 fL (36.4-46.3); Red Blood Count 4.14 M/uL (4.70-6.10); White Blood Count 6.57 K/ul (4.8-10.8)
[2024-06-26 06:58] LABS: BUN Creatinine Ratio 24.1 (10-20); Calcium 8.3 mg/dl (8.6-10.3); Creatinine Clr Calc Pharmacy 72.9 ml/min; Potassium 4.1 mmol/L (3.5-5.1)
[2024-06-26 07:03] LABS: INR 1.2 (0.9-1.1)
--- NOTE | 2024-06-26 07:22 | History & Physical Bridge Note ---
Date of Service June 26, 2024 History & Physical Bridge Note I have examined the patient, reviewed the History & Physical and in the interval since the performance of the History & Physical I have noted the following changes of clinical significance: no changes noted
[2024-06-26] MEDS ORDERED: fentaNYL citrate PF 100 MCG/2 ML VIAL ONE ×2 (07:28→08:11)
[2024-06-26] MEDS ORDERED: ONDANSETRON INJ 2 MG/ML 2 ML VIAL ONE (07:28)
[2024-06-26] MEDS ORDERED: DEXAMETHASONE SOD INJ 4 MG/ML VIAL ONE (07:28)
[2024-06-26] MEDS ORDERED: ROCURONIUM BROMIDE 10 MG/ML 5 ML VIAL IV ONE (07:28)
[2024-06-26] MEDS ORDERED: PROPOFOL IV EMULSION 10 MG/ML 20 ML VIAL IV ONE ×2 (07:28→08:14)
[2024-06-26] MEDS ORDERED: SUGAMMADEX SODIUM 200 MG/2 ML VIAL IV ONE (07:29)
[2024-06-26] MEDS ORDERED: HYDROmorphone INJ 1 MG/ML SYRINGE IV PRN (07:38)
[2024-06-26] MEDS ORDERED: LABETALOL HCL IV 5 MG/ML 20ML IV PRN (07:38)
[2024-06-26] MEDS ORDERED: PROMETHAZINE HCL 6.25 MG in SODIUM CHLORIDE 0.9% 50 ML IV PRN (07:38)
[2024-06-26] MEDS ORDERED: ATROPINE SULFATE 0.1 MG/ML 10ML SYR IV PRN (07:38)
[2024-06-26] MEDS ORDERED: NALOXONE HCL 0.4 MG/1 ML VIAL/CARP IV PRN (07:38)
[2024-06-26] MEDS ORDERED: fentaNYL citrate PF 100 MCG/2 ML VIAL IV PRN (07:38)
[2024-06-26] MEDS ORDERED: ONDANSETRON INJ 2 MG/ML 2 ML VIAL IV PRN (07:38)
[2024-06-26] MEDS ORDERED: ePHEDrine sulfate 50 MG/ML AMP IV PRN (07:38)
[2024-06-26] MEDS ORDERED: ceFAZolin 330 MG/ML 1 GM VIAL ONE (08:01)
[2024-06-26] MEDS: ceFAZolin 2000MG 2,000 MG/15 ML SYR IV ONE (08:02)
[2024-06-26] MEDS ORDERED: PHENYLEPHRINE 100MCG/ML 5ML SYR ONE (08:42)
[2024-06-26] MEDS ORDERED: ePHEDrine sulfate 50 MG/5 ML SYR ONE (08:42)
[2024-06-26] MEDS: ROPIVACAINE 0.5% HCL/PF 246 MG, Ketorolac (*for OR use only*) 30 MG, EPINEPHrine 30MG/3... INFIL SCH (08:52)
--- NOTE | 2024-06-26 09:31 | Fluoroscopy Report ---
FL hip LT 1V CLINICAL HISTORY: LEFT ANTERIOR HIP COMPARISON STUDY: Left hip radiographs June 24, 2024. FLUOROSCOPY TIME: 8 seconds. Ka,r: 0.6777 mGy FLUOROSCOPIC IMAGES: 1 FINDINGS: Fluoroscopy was provided during left hip arthroplasty. Hardware is intact. No periprostheti c fracture or unexpected radiopaque foreign body is identified. IMPRESSION: Fluoroscopy provided during left hip arthroplasty. ACT 112: Negative or not required by law. Electronically signed by: Reagan Sloan M.D. 06/26/2024 9:29 AM
--- NOTE | 2024-06-26 09:53 | Operative Report ---
PG Post Operative Report Pre & Post Diagnosis Operation Date: 06/26/24 07:30 Pre-Op Diagnosis: Closed fracture of neck of left femur Post-Op Diagnosis: Closed fracture of neck of left femur I identified the patient and participated in the time-out.: Yes Procedure Operation Date: 06/26/24 07:30 Actual Procedures p Left Hip Hemiarthroplasty, Cemented - Pato Paez DO Surgeon Pato Paez DO Plumber None Estimated Blood Loss 300 Findings Consistent with Post-Op Diagnosis Specimens Left femoral head Description of Procedure On June 26, 2024 Raghavendra was brought down from his hospital room to the preoperative holding area. The operative extremity identified and signed. Is given a preoperative antibiotic. He was taken back the operative room and placed under general anesthesia. He was then transferred to the operating table. The left hip was brought out to a purist leg positioner. The left hip were then prepped and draped in sterile fashion. A timeout was done. The patient and the operative extremity was properly identified. An anterior approach was used. Dissection was taken down through the fascia. The rectus was retracted anteriorly and the tensor fascia was retracted posteriorly. The circumflex vessels were ligated. The capsule was exposed. The capsule was then incised and tagged for later repair. The femoral neck fracture was easily identified. The femoral neck was then resected with an oscillating saw and the neck was removed. The femoral head was then removed using a corkscrew screwdriver. The acetabular was then exposed. Time was spent doing a circumferential labral release and cleaning of any soft tissue remnants in the acetabulum. The femoral head measured to be a size 52. The proximal femur was then exposed. Sequential broaching up to a size 15 broach was done. A femoral neck trial was placed with a 28 mm +3 head and a 52 mm shell. The hip was then reduced. Fluoroscopic images showed near anatomic alignment. The hip was then dislocated and trial components were then removed. The final size 13 Ole cemented echo stem was then cemented into place. Once cement had hardened a 52 mm shell was then snapped onto a 28 mm +3 femoral head. The head and shell were then impacted onto the femoral neck. The hip was then reduced. Final fluoroscopic images showed anatomic alignment. Surrounding soft tissues were injected with 100 cc of an orthopedic pain control cocktail. The capsule was then closed with Vicryl suture. The fascia was closed with #1 PDS suture. Skin was closed with 2-0 Vicryl, 3-0 Vicryl's, and jersey. A Silverlon dressing was placed. He was then extubated and transferred back to a hospital bed. He was taken to the postanesthesia care unit in stable condition. He tolerated the procedure well. I attest to the content of the Intraoperative Record and any orders documented therein. Any exceptions are noted below.
--- NOTE | 2024-06-26 10:12 | Hospitalist Progress Note ---
Date of Service June 26, 2024 Assessment & Plan (1) Closed fracture of neck of left femur: (2) Fall from standing: (3) Contusion of left shoulder, initial encounter: (4) Paroxysmal SVT (supraventricular tachycardia): (5) Hemochromatosis: (6) History of recurrent deep vein thrombosis (DVT): Plan: On chronic anticoagulation with warfarin recurrent PE DVT on Coumadin, INR therapeutic received vit. K on admission IV heparin while INR less than 2 while Coumadin on hold Resume anticoagulation/VTE prophylaxis as soon as possible after surgery Plan Patient status post fall with left hip fracture Orthopedics consulted and pt is s/p surg. repair on 06/26/2024 w/ Dr. Paez Scheduled Tylenol for pain control As needed tramadol and morphine for pain control Continue other home medications Asymptomatic pyuria, status post outpatient Macrodantin Rx for recent UTI, negative growth on outpatient urine CS, BPH status post surgery Urine CS, hold off on additional antibiotics for now Chronic anemia, hemoglobin better than baseline on admission - cont. to monitor Chronic conditions hx PSVT TIA/PVD mild AR DVT prophylaxis. SCDs while Coumadin on hold if INR less than 2/IV heparin Full code Patient's - Ms. Yadi Gramajo, contact #[phone]. Admission and Anticipated Discharge Date Admission Date: June 24, 2024 Subjective Pt seen in follow up of L femoral fracture, now s/p surgical repair as of this AM Currently laying in bed in NAD, awake and alert, overall feeling well, no complaints of pain at this time No fevers, chills, + rhinorrhea and some cough for past 2 weeks on and off Review of Systems Review of Systems: All systems reviewed & are unremarkable except as noted in Subjective Physical Exam Physical Exam: Constitutional: thin elderly M in NAD HEENT: Mucous membranes moist. Lungs: Clear to auscultation, decreased, no wheezes rales or rhonchi CV: S1-S2, regular Abdomen: Soft, nontender, nondistended Extremities: No significant edema, mild left hip tenderness to palpation, post- surg. dressings applied, left shoulder pain w/ movement Neuro: awake, alert, oriented, speech fluent, answers appropriately Psych: Cooperative, normal mood Results & Data Results & Data Vital Signs (Past 12 Hours) Vital Signs Temp Pulse Resp BP Pulse Ox O2 Del Method 06/26/24 10:05 36.2 C L 78 24 144/73 H 94 Room Air 06/26/24 09:55 72 14 145/61 H 94 Room Air 06/26/24 09:45 77 14 131/55 L 95 Room Air 06/26/24 09:38 36.4 C L 81 17 132/49 L 97 Room Air Laboratory Results 06/26/24 06/25/24 Range/Units 06:03 11:55 WBC 6.57 (4.8-10.8) K/ul RBC 4.14 L (4.70-6.10) M/uL Hgb 12.5 L 12.4 L (14.0-18.0) g/dl Hct 36.6 L 35.8 L (42.0-52.0) % MCV 88.4 (80.0-100.0) fL MCH 30.2 (25.0-34.0) pg MCHC 34.2 (32.0-36.0) g/dL RDW Std Deviation 42.6 (36.4-46.3) fL RDW Coeff of Alex 13.2 (11.5-14.5) % Plt Count 124 L (130-400) K/uL MPV 9.2 L (9.4-12.4) fL PT 13.0 H 16.9 H (9.0-12.0) Seconds INR 1.2 H 1.6 H (0.9-1.1) Sodium 138 (136-145) mmol/L Potassium 4.1 (3.5-5.1) mmol/L Chloride 104 (98-107) mmol/L Carbon Dioxide 28 (21-32) mmol/L Anion Gap 6 (3-11) BUN 19 (6-23) mg/dl Creatinine 0.79 (0.6-1.4) mg/dl Est Cr Clr Drug Dosing 72.9 ml/min eGFR 87.60 BUN/Creatinine Ratio 24.1 H (10-20) Glucose 83 (70-99(Fasting)) mg/dl Calcium 8.3 L (8.6-10.3) mg/dl Medications Administered Current Inpatient Medications Acetaminophen (Acetaminophen 500 Mg Tab) 1,000 mg PO TID [facility] Stop: 07/25/24 13:59 Last Admin: 12/31/24 20:23 Dose: 1,000 mg Atropine Sulfate (Atropine Sulfate 0.1 Mg/Ml 10ml Syr) 0.5 mg IV Q1M PRN PRN Reason: PACU Use-HR<40 &/or Bradycardi Stop: 06/26/24 15:38 Azelastine HCl (Azelastine Hcl 0.1% Nasal 200 Sprays/27,400 Mcg Btl) 2 sprays NA BID PRN PRN Reason: RHINITIS Stop: 07/25/24 01:27 Bisacodyl (Bisacodyl 10 Mg Supp) 10 mg SC DAILY PRN PRN Reason: Constipation Stop: 07/25/24 01:22 Ephedrine Sulfate (Ephedrine Sulfate 50 Mg/Ml Amp) 5 mg IV Q5M PRN PRN Reason: PACU Use Only-SBP<90 mmHg Stop: 06/26/24 15:38 Fentanyl Citrate (Fentanyl Citrate Pf 100 Mcg/2 Ml Vial) 25 mcg IV Q5M PRN PRN Reason: PACU Use Only-Pain Stop: 06/26/24 15:38 Finasteride (Finasteride 5 Mg Tab) 5 mg PO QAM [facility] Stop: 07/25/24 08:59 Last Admin: 06/25/24 10:02 Dose: 5 mg Fluticasone Propionate (Fluticasone Propionate Na Spr 16 Gm Btl) 2 sprays NA QAM PRN PRN Reason: Congestion Stop: 07/25/24 01:27 Folic Acid (Folic Acid 1 Mg Tab) 1 mg PO QAM [facility] Stop: 07/25/24 08:59 Last Admin: 06/25/24 10:02 Dose: 1 mg Hydromorphone HCl (Hydromorphone Inj 1 Mg/Ml Syringe) 0.25 mg IV Q5M PRN PRN Reason: PACU Use Only-Pain Stop: 06/26/24 15:38 Promethazine HCl (Phenergan) 6.25 mg in 50.25 mls @ 201 mls/hr IV Q6H PRN PRN Reason: Nausea And Vomiting Stop: 07/24/24 23:30 Promethazine HCl 6.25 mg/ (Sodium Chloride) 50.25 mls @ 204 mls/hr IV ONCE PRN PRN Reason: PACU Use Only-Nausea/Vomiting Stop: 06/26/24 15:38 Labetalol HCl (Labetalol Hcl Iv 5 Mg/Ml 20ml) 5 mg IV Q5M PRN PRN Reason: PACU Use-SBP>160 or DBP>100 Stop: 06/26/24 15:39 Metoprolol Succinate (Metoprolol Succ 25mg Ext Rel Tab) 25 mg PO QAM [facility] Stop: 07/25/24 08:59 Last Admin: 06/25/24 10:03 Dose: 25 mg Morphine Sulfate (Morphine Sulfate 2 Mg/Ml Carp) 2 mg IV Q3H PRN PRN Reason: Severe Pain (Scale 7, 8, 9,10) Stop: 07/08/24 23:30 Last Admin: 06/25/24 23:19 Dose: 2 mg Naloxone HCl (Naloxone Hcl 0.4 Mg/1 Ml Vial/Carp) 0.1 mg IV UD PRN PRN Reason: Opiate Overdose Stop: 07/25/24 01:22 Naloxone HCl (Naloxone Hcl 0.4 Mg/1 Ml Vial/Carp) 0.2 mg IV Q2M PRN PRN Reason: PACU Use Only-Opiate Reversal Stop: 06/26/24 15:38 Ondansetron HCl (Ondansetron Inj 2 Mg/Ml 2 Ml Vial) 4 mg IV ONCE PRN PRN Reason: PACU Use Only-Nausea/Vomiting Stop: 06/26/24 15:38 Pantoprazole Sodium (Pantoprazole 40 Mg Tab) [facility] Stop: 07/25/24 06:29 Last Admin: 06/26/24 06:36 Dose: Not Given Tamsulosin HCl (Tamsulosin Hcl 0.4 Mg Cap) 0.4 mg PO [facility] Stop: 07/25/24 08:59 Last Admin: 06/25/24 10:03 Dose: 0.4 mg Tramadol HCl (Tramadol Hcl 50 Mg Tablet) 25 - 50 mg PO Q4H PRN PRN Reason: Pain Stop: 07/24/24 23:30 Last Admin: 06/26/24 01:35 Dose: 50 mg
--- NOTE | 2024-06-26 10:33 | Anesthesiology Progress Note ---
Date of Service June 26, 2024 Anesthesia Post Procedure Vital Signs Vital Signs: Temp Pulse Pulse Resp BP BP Pulse Ox 06/26/24 10:25 70 21 157/66 H 95 06/26/24 10:15 71 18 145/68 H 94 06/26/24 10:05 36.2 C L 78 24 144/73 H 94 06/26/24 09:55 72 14 145/61 H 94 06/26/24 09:45 77 14 131/55 L 95 06/26/24 09:38 36.4 C L 81 17 132/49 L 97 06/25/24 20:20 06/25/24 19:57 36.8 C 68 14 129/64 96 06/25/24 18:00 06/25/24 17:57 36.9 C 62 16 135/71 96 06/25/24 17:05 54 L 18 134/72 98 06/25/24 14:02 36.5 C 68 17 149/75 H 96 06/25/24 12:10 36.7 C 55 L 18 126/76 97 O2 Del Method 06/26/24 10:25 Room Air 06/26/24 10:15 Room Air 06/26/24 10:05 Room Air 06/26/24 09:55 Room Air 06/26/24 09:45 Room Air 06/26/24 09:38 Room Air 06/25/24 20:20 Room Air 06/25/24 19:57 Room Air 06/25/24 18:00 Room Air 06/25/24 17:57 Room Air 06/25/24 17:05 Room Air 06/25/24 14:02 Room Air 06/25/24 12:10 Room Air Pain Intensity Left Hip: Pain Intensity: 6 Transfer of Care Handoff Completed per policy Notes Mental Status: alert / awake / arousable Patient Amnestic to Procedure: Yes Nausea / Vomiting: adequately controlled Pain: adequately controlled Airway Patency, RR, SpO2: stable & adequate BP & HR: stable & adequate Hydration State: stable & adequate Anesthetic Complications: no major complications apparent
[2024-06-26] MEDS ORDERED: ACETAMINOPHEN 325 MG TAB PO PRN (10:40)
[2024-06-26] MEDS ORDERED: FUROSEMIDE 40 MG TAB PO PRN (10:40)
[2024-06-26] MEDS ORDERED: POTASSIUM CHLORIDE 10 MEQ TABCR PO PRN (10:40)
--- NOTE | 2024-06-26 12:23 | XRay Report ---
XR hip LT min 2V CLINICAL HISTORY: Post-Operative implant position COMPARISON: Left hip radiographs June 24, 2024. FINDINGS: Alignment of the left hip arthroplasty is anatomic. There is no periprosthetic fracture or unexpected radiopaque foreign body. There are skin jersey. IMPRESSION: Expected findings following left hip arthroplasty. ACT 112: Negative or not required by law. Electronically signed by: Reagan Sloan M.D. 06/26/2024 12:22 PM
[2024-06-26] MEDS: WARFARIN SOD 5 MG TAB PO SCH (17:00)
[2024-06-26] MEDS: ceFAZolin 2000MG 2,000 MG/15 ML SYR IV SCH (17:00)
[2024-06-26] MEDS: SODIUM CHLORIDE 0.9% 500 ML IV ONE (18:07)
[2024-06-26 18:51] LABS: Hemoglobin 10.6 g/dl (14.0-18.0)
[2024-06-26] MEDS: NITROFURANTOIN MONOHYDRATE 100 MG CAP PO SCH (21:48)
[2024-06-27 00:03] LABS: Hematocrit (blood only) 28.5 % (42.0-52.0); Hemoglobin 10.1 g/dl (14.0-18.0)
[2024-06-27 07:27] LABS: Hematocrit (blood only) 27.9 % (42.0-52.0); Hemoglobin 9.9 g/dl (14.0-18.0); Mean Corpuscular Hemoglobin 30.9 pg (25.0-34.0); Mean Corpuscular Hgb Conc 35.5 g/dL (32.0-36.0); Mean Corpuscular Volume 87.2 fL (80.0-100.0); Platelet Count 140 K/uL (130-400); White Blood Count 7.19 K/ul (4.8-10.8)
[2024-06-27 07:47] LABS: INR 1.2 (0.9-1.1); Prothrombin Time 12.4 Seconds (9.0-12.0)
[2024-06-27 07:48] LABS: BUN Creatinine Ratio 27.5 (10-20); Calcium 7.8 mg/dl (8.6-10.3); Creatinine Clr Calc Pharmacy 56.4 ml/min; Magnesium 1.7 mg/dl (1.7-2.4); Potassium 4.2 mmol/L (3.5-5.1)
--- NOTE | 2024-06-27 08:08 | Orthopedic Progress Note ---
Date of Service June 27, 2024 Assessment & Plan (1) Closed fracture of neck of left femur: Overall he is doing as well as expected. Is not having too much pain in the left hip. He will be seen by physical therapy today for ambulation and range of motion exercises. He can be weightbearing as tolerated on his left hip. He is currently on Coumadin for DVT prophylaxis. With regards to his left shoulder, the x-rays were negative. He possibly tore his rotator cuff. It is difficult to say at this time. I can treat him with an injection in the office to be still having pain when he comes for follow-up of his hip. He has no restrictions with his left shoulder. He is orthopedically stable for discharge when medically ready. Full orthopedic discharge instructions were placed in the discharge summary. Roxana Mabry was seen and examined at bedside this morning. Overall he is doing fairly well. He is not having too much pain in his left hip. He is actually having a little more pain in his left shoulder. He has not been out of bed yet. He has no new complaints.. Review of Systems All systems reviewed & are unremarkable except as noted in HPI & below. Physical Exam On physical exam of his left hip, his leg lengths are equal. His dressing is clean and dry. He is neurovascular intact. Examination of his shoulder shows she only size a pseudoparalysis and is having difficulty with forward elevation.. Results & Data Results & Data Laboratory Results . Diagnostic Findings Postoperative x-rays of the left hip show the prosthesis to be in anatomic alignment without any evidence of fracture, dislocation, or loosening.. PG Care Time/CCT Total # of Minutes Spent Total Time Spent with Patient: Total time spent is greater than 50% in coordination of care (as documented) at patient's floor/unit and/or counseling patient: Coding Level of Care Code 94961 Post Operative Follow-Up Diagnoses Closed fracture of neck of left femur S72.002A
[2024-06-27] MEDS: CYANOCOBALAMIN (B-12) 2,500 MCG TABLET SL SCH (08:54)
[2024-06-27] MEDS: MAGNESIUM OXIDE 400 MG TAB PO SCH (08:55)
[2024-06-27] MEDS: CHOLECALCIFEROL 125 MCG (5,000 UNITS) TAB PO SCH (08:55)
[2024-06-27] MEDS: OMEGA-3 (PURIFIED FISH OIL) 1 GM CAP PO SCH (08:55)
[2024-06-27] MEDS ORDERED: MAGNESIUM OXIDE 400 MG TAB PO SCH (09:00)
--- NOTE | 2024-06-27 13:25 | Hospitalist Progress Note ---
Date of Service June 27, 2024 Assessment & Plan (1) Closed fracture of neck of left femur: (2) Fall from standing: (3) Contusion of left shoulder, initial encounter: (4) Paroxysmal SVT (supraventricular tachycardia): (5) Hemochromatosis: (6) History of recurrent deep vein thrombosis (DVT): Plan: On chronic anticoagulation with warfarin hx of recurrent PE DVT on Coumadin, INR therapeutic on admission received vit. K on admission Discussed w/ Dr. Paez yesterday and Resumed warfarin yesterday. As INR 1.2, will also add heparin subq for DVT ppx Plan Patient status post fall with left hip fracture Orthopedics consulted and pt is s/p surg. repair on 06/26/2024 w/ Dr. Paez Scheduled Tylenol for pain control As needed tramadol and morphine for pain control Continue other home medications Asymptomatic pyuria, status post outpatient Macrodantin Rx for recent UTI, negative growth on outpatient urine CS, BPH status post surgery Urine CS, hold off on additional antibiotics for now Acute on Chronic anemia, initially hemoglobin better than baseline on admission Acute blood loss anemia - post op vs dilutional Current Hgb ~10 - cont. to monitor Chronic conditions hx PSVT TIA/PVD mild AR DVT prophylaxis. Coumadin resumed, heparin subq Full code Patient's - Ms. Yadi Gramajo, contact #[phone]. Admission and Anticipated Discharge Date Admission Date: June 24, 2024 Subjective Pt seen in follow up of L femoral fracture, now s/p surgical repair Currently sitting up in chair in NAD, awake and alert, overall feeling well, no complaints of pain at this time No fevers, chills, + rhinorrhea and some cough for past 2 weeks on and off Family at the bedside and updated. Review of Systems Review of Systems: All systems reviewed & are unremarkable except as noted in Subjective Physical Exam Physical Exam: Constitutional: thin elderly M in NAD HEENT: Mucous membranes moist. Lungs: Clear to auscultation, decreased, no wheezes rales or rhonchi CV: regular Abdomen: Soft, nontender, nondistended Extremities: No significant edema, mild left hip tenderness to palpation, post- surg. dressings applied, left shoulder pain w/ movement Neuro: awake, alert, oriented, speech fluent, answers appropriately Results & Data Results & Data Vital Signs (Past 12 Hours) Vital Signs Temp Pulse Pulse Resp BP BP Pulse Ox 06/27/24 07:57 36.7 C 66 16 100/55 L 96 06/27/24 05:27 78 107/64 06/27/24 03:05 36.8 C 68 20 103/67 93 O2 Del Method 06/27/24 07:57 Room Air 06/27/24 05:27 06/27/24 03:05 Room Air Laboratory Results 06/27/24 06/26/24 06/26/24 Range/Units 06:25 23:09 18:27 WBC 7.19 (4.8-10.8) K/ul RBC 3.20 L (4.70-6.10) M/uL Hgb 9.9 L 10.1 L 10.6 L (14.0-18.0) g/dl Hct 27.9 L 28.5 L 31.0 L (42.0-52.0) % MCV 87.2 (80.0-100.0) fL MCH 30.9 (25.0-34.0) pg MCHC 35.5 (32.0-36.0) g/dL RDW Std Deviation 41.0 (36.4-46.3) fL RDW Coeff of Alex 13.0 (11.5-14.5) % Plt Count 140 (130-400) K/uL MPV 10.0 (9.4-12.4) fL PT 12.4 H (9.0-12.0) Seconds INR 1.2 H (0.9-1.1) Sodium 134 L (136-145) mmol/L Potassium 4.2 (3.5-5.1) mmol/L Chloride 102 (98-107) mmol/L Carbon Dioxide 28 (21-32) mmol/L Anion Gap 4 (3-11) BUN 28 H (6-23) mg/dl Creatinine 1.02 (0.6-1.4) mg/dl Est Cr Clr Drug Dosing 56.4 ml/min eGFR 72.47 BUN/Creatinine Ratio 27.5 H (10-20) Glucose 144 H (70-99(Fasting)) mg/dl Calcium 7.8 L (8.6-10.3) mg/dl Phosphorus 3.0 (2.5-4.9) mg/dl Magnesium 1.7 (1.7-2.4) mg/dl Medications Administered Current Inpatient Medications Acetaminophen (Acetaminophen 500 Mg Tab) 1,000 mg PO TID [facility] Stop: 07/25/24 13:59 Last Admin: 06/27/24 08:57 Dose: 1,000 mg Acetaminophen (Acetaminophen 325 Mg Tab) 325 mg PO Q6 PRN PRN Reason: Pain Stop: 07/26/24 10:39 Azelastine HCl (Azelastine Hcl 0.1% Nasal 200 Sprays/27,400 Mcg Btl) 2 sprays NA BID PRN PRN Reason: RHINITIS Stop: 07/25/24 01:27 Bisacodyl (Bisacodyl 10 Mg Supp) 10 mg MS DAILY PRN PRN Reason: Constipation Stop: 07/25/24 01:22 Cyanocobalamin (Cyanocobalamin (B-12) 2,500 Mcg Tablet) 5,000 mcg SL DAILY [facility] Stop: 07/27/24 08:59 Last Admin: 06/27/24 08:54 Dose: 5,000 mcg Finasteride (Finasteride 5 Mg Tab) 5 mg PO QAM [facility] Stop: 07/25/24 08:59 Last Admin: 06/27/24 08:56 Dose: 5 mg Fish Oil ([place]-3 (Purified Fish Oil) 1 Gm Cap) 1 cap PO DAILY [facility] Stop: 07/27/24 08:59 Last Admin: 06/27/24 08:55 Dose: 1 cap Fluticasone Propionate (Fluticasone Propionate Na Spr 16 Gm Btl) 2 sprays NA QAM PRN PRN Reason: Congestion Stop: 07/25/24 01:27 Folic Acid (Folic Acid 1 Mg Tab) 1 mg PO QAM [facility] Stop: 07/25/24 08:59 Last Admin: 06/27/24 08:55 Dose: 1 mg Furosemide (Furosemide 40 Mg Tab) 40 mg PO DAILY PRN PRN Reason: Edema Stop: 07/26/24 10:39 Promethazine HCl (Phenergan) 6.25 mg in 50.25 mls @ 201 mls/hr IV Q6H PRN PRN Reason: Nausea And Vomiting Stop: 07/24/24 23:30 Magnesium Oxide (Magnesium Oxide 400 Mg Tab) 400 mg PO BID [facility] Stop: 07/27/24 08:59 Last Admin: 06/27/24 08:55 Dose: 400 mg Metoprolol Succinate (Metoprolol Succ 25mg Ext Rel Tab) [facility] Stop: 07/25/24 08:59 Last Admin: 06/27/24 08:56 Dose: Not Given Morphine Sulfate (Morphine Sulfate 2 Mg/Ml Carp) 2 mg IV Q3H PRN PRN Reason: Severe Pain (Scale 7, 8, 9,10) Stop: 07/08/24 23:30 Last Admin: 06/25/24 23:19 Dose: 2 mg Naloxone HCl (Naloxone Hcl 0.4 Mg/1 Ml Vial/Carp) 0.1 mg IV UD PRN PRN Reason: Opiate Overdose Stop: 07/25/24 01:22 Nitrofurantoin Macrocrystals (Nitrofurantoin Monohydrate 100 Mg Cap) 100 mg PO [facility] Stop: 06/28/24 20:59 Last Admin: 06/27/24 08:55 Dose: 100 mg Pantoprazole Sodium (Pantoprazole 40 Mg Tab) [facility] Stop: 07/25/24 06:29 Last Admin: 06/27/24 05:39 Dose: 40 mg Potassium Chloride (Potassium Chloride 10 Meq Tabcr) 10 meq PO QAM PRN PRN Reason: IF PATIENT TAKES LASIX Stop: 07/26/24 10:39 Tamsulosin HCl (Tamsulosin Hcl 0.4 Mg Cap) 0.4 mg PO [facility] Stop: 07/25/24 08:59 Last Admin: 06/27/24 08:55 Dose: 0.4 mg Tramadol HCl (Tramadol Hcl 50 Mg Tablet) 25 - 50 mg PO Q4H PRN PRN Reason: Pain Stop: 07/24/24 23:30 Last Admin: 06/27/24 12:56 Dose: 50 mg Vitamin D (Cholecalciferol 125 Mcg (5,000 Units) Tab) 125 mcg PO [facility] Stop: 07/27/24 08:59 Last Admin: 06/27/24 08:55 Dose: 125 mcg Warfarin Sodium (Warfarin Sod 5 Mg Tab) 5 mg PO [id number] [facility] Stop: 07/26/24 15:59 Last Admin: 06/26/24 17:00 Dose: 5 mg Warfarin Sodium (Warfarin Sod 7.5 Mg Tab) 7.5 mg PO [email or web address] [facility] Stop: 07/27/24 15:59
[2024-06-27] MEDS: SODIUM CHLORIDE 0.9% 500 ML IV ONE (14:49)
[2024-06-27] MEDS ORDERED: WARFARIN SOD 7.5 MG TAB PO SCH (16:00)
[2024-06-27] MEDS: HEPARIN SOD 5,000 UNIT/0.5 ML VIAL SQ SCH (21:01)
[2024-06-27] MEDS: WARFARIN SOD 5 MG TAB PO SCH (21:02)
--- NOTE | 2024-06-27 21:28 | Communication Note ---
Date of Service: June 27, 2024 Made aware by RN of patient rash over chest. Possibly from hospital Coumadin. Patient gives history of being allergic to 's Coumadin preparation. Patient requesting to be able to take his nonformulary warfarin preparation. Patient will notify family in AM. Claritin 1 dose now. Pharmacy made aware.
[2024-06-27] MEDS: DICLOFENAC SOD 1% GEL 100 GM TUBE EXT PRN (22:04)
[2024-06-27] MEDS: LORATADINE 10 MG TAB PO ONE (22:04)
[2024-06-28] MEDS: DOCUSATE SODIUM/SENNA 50/8.6MG TAB PO SCH (05:36)
[2024-06-28] MEDS: POLYETHYLENE (MIRALAX) 17 GM PACK PO STA (05:36)
[2024-06-28 07:41] LABS: Hematocrit (blood only) 27.4 % (42.0-52.0); Hemoglobin 9.5 g/dl (14.0-18.0); Mean Corpuscular Hemoglobin 30.6 pg (25.0-34.0); Mean Corpuscular Hgb Conc 34.7 g/dL (32.0-36.0); Mean Corpuscular Volume 88.4 fL (80.0-100.0); Platelet Count 137 K/uL (130-400); RDW Coefficient of Variation 13.3 % (11.5-14.5); RDW Standard Deviation 43.1 fL (36.4-46.3); White Blood Count 5.97 K/ul (4.8-10.8)
[2024-06-28 07:44] LABS: BUN Creatinine Ratio 26.4 (10-20); Creatinine Clr Calc Pharmacy 63.2 ml/min; Magnesium 1.8 mg/dl (1.7-2.4); Phosphorus 2.6 mg/dl (2.5-4.9); Potassium 4.5 mmol/L (3.5-5.1)
[2024-06-28 07:53] LABS: INR 1.2 (0.9-1.1); Prothrombin Time 12.6 Seconds (9.0-12.0)
[2024-06-28] MEDS: POLYETHYLENE (MIRALAX) 17 GM PACK PO PRN (07:56)
--- NOTE | 2024-06-28 16:46 | Orthopedic Progress Note ---
Date of Service June 28, 2024 Assessment & Plan (1) Closed fracture of neck of left femur: Overall he is doing fairly well. He is not having much pain in the left hip. He has been participating with physical therapy. He is on Coumadin for DVT prophylaxis. He is orthopedically stable for discharge when medically ready. Full orthopedic discharge instructions were placed in the discharge summary. Roxana Mabry was seen and examined at bedside this morning. Overall he is doing fairly well. He is not having much pain in the left hip. He has been up and ambulating a little bit. He has no complaints.. Review of Systems All systems reviewed & are unremarkable except as noted in HPI & below. Physical Exam On physical exam of the left hip, the dressing is clean and dry. His leg is out full extension. He has active dorsiflexion plantarflexion of his left ankle.. Results & Data Results & Data Laboratory Results . Diagnostic Findings . PG Care Time/CCT Total # of Minutes Spent Total Time Spent with Patient: Total time spent is greater than 50% in coordination of care (as documented) at patient's floor/unit and/or counseling patient: Coding Level of Care Code 38471 Post Operative Follow-Up Diagnoses Closed fracture of neck of left femur S72.002A
--- NOTE | 2024-06-28 19:28 | Hospitalist Progress Note ---
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 K on admission Discussed w/ Dr. Paez after surgery and resumed warfarin. As INR 1.2, will also added heparin subq for DVT ppx Plan Patient status post fall with left hip fracture Orthopedics consulted and pt is s/p surg. repair on 06/26/2024 w/ Dr. Paez Scheduled Tylenol for pain control As needed tramadol and morphine for pain control Continue other home medications Asymptomatic pyuria, status post outpatient Macrodantin Rx for recent UTI, negative growth on outpatient urine CS, BPH status post surgery Urine CS, hold off on additional antibiotics for now Acute on Chronic anemia, initially hemoglobin better than baseline on admission Acute blood loss anemia - post op vs dilutional Current Hgb 9.5 - cont. to monitor Chronic conditions hx PSVT TIA/PVD mild AR DVT prophylaxis. Coumadin resumed, heparin subq Full code Patient's - Ms. Yadi Gramajo, contact #[phone]. Admission and Anticipated Discharge Date Admission Date: June 24, 2024 Subjective Pt seen in follow up of L femoral fracture, now s/p surgical repair Currently sitting up in chair in NAD, awake and alert, overall feeling well, no complaints of pain at this time No fevers, chills Family at the bedside and updated. Hgb 9.5 Review of Systems Review of Systems: All systems reviewed & are unremarkable except as noted in Subjective Physical Exam Physical Exam: Constitutional: thin elderly M in NAD HEENT: Mucous membranes moist. Lungs: Clear to auscultation, decreased, no wheezes rales or rhonchi CV: regular Abdomen: Soft, nontender, nondistended Extremities: No significant edema, mild left hip tenderness to palpation, post- surg. dressings applied, left shoulder pain w/ movement Neuro: awake, alert, oriented, speech fluent, answers appropriately Results & Data Results & Data Vital Signs (Past 12 Hours) Vital Signs Temp Pulse Resp BP Pulse Ox O2 Del Method 06/28/24 16:30 37.1 C 82 15 123/57 L 98 Room Air 06/28/24 07:33 37.3 C 84 15 100/58 L 97 Room Air Laboratory Results 06/28/24 Range/Units 06:22 WBC 5.97 (4.8-10.8) K/ul RBC 3.10 L (4.70-6.10) M/uL Hgb 9.5 L (14.0-18.0) g/dl Hct 27.4 L (42.0-52.0) % MCV 88.4 (80.0-100.0) fL MCH 30.6 (25.0-34.0) pg MCHC 34.7 (32.0-36.0) g/dL RDW Std Deviation 43.1 (36.4-46.3) fL RDW Coeff of Alex 13.3 (11.5-14.5) % Plt Count 137 (130-400) K/uL MPV 10.0 (9.4-12.4) fL PT 12.6 H (9.0-12.0) Seconds INR 1.2 H (0.9-1.1) Sodium 134 L (136-145) mmol/L Potassium 4.5 (3.5-5.1) mmol/L Chloride 101 (98-107) mmol/L Carbon Dioxide 31 (21-32) mmol/L Anion Gap 2 L (3-11) BUN 24 H (6-23) mg/dl Creatinine 0.91 (0.6-1.4) mg/dl Est Cr Clr Drug Dosing 63.2 ml/min eGFR 83.11 BUN/Creatinine Ratio 26.4 H (10-20) Glucose 95 (70-99(Fasting)) mg/dl Calcium 8.0 L (8.6-10.3) mg/dl Phosphorus 2.6 (2.5-4.9) mg/dl Magnesium 1.8 (1.7-2.4) mg/dl Medications Administered Current Inpatient Medications Acetaminophen (Acetaminophen 500 Mg Tab) 1,000 mg PO TID [facility] Stop: 07/25/24 13:59 Last Admin: 06/28/24 13:53 Dose: 1,000 mg Acetaminophen (Acetaminophen 325 Mg Tab) 325 mg PO Q6 PRN PRN Reason: Pain Stop: 07/26/24 10:39 Azelastine HCl (Azelastine Hcl 0.1% Nasal 200 Sprays/27,400 Mcg Btl) 2 sprays NA BID PRN PRN Reason: RHINITIS Stop: 07/25/24 01:27 Cyanocobalamin (Cyanocobalamin (B-12) 2,500 Mcg Tablet) 5,000 mcg SL DAILY [facility] Stop: 07/27/24 08:59 Last Admin: 06/28/24 08:51 Dose: 5,000 mcg Diclofenac Sodium (Diclofenac Sod 1% Gel 100 Gm Tube) 2 gm EXT Q6H PRN; Protocol PRN Reason: joint pain Stop: 07/27/24 21:14 Last Admin: 06/28/24 15:20 Dose: 2 gm Finasteride (Finasteride 5 Mg Tab) 5 mg PO QAM [facility] Stop: 07/25/24 08:59 Last Admin: 06/28/24 08:52 Dose: 5 mg Fish Oil ([place]-3 (Purified Fish Oil) 1 Gm Cap) 1 cap PO DAILY [facility] Stop: 07/27/24 08:59 Last Admin: 06/28/24 08:51 Dose: 1 cap Fluticasone Propionate (Fluticasone Propionate Na Spr 16 Gm Btl) 2 sprays NA QAM PRN PRN Reason: Congestion Stop: 07/25/24 01:27 Folic Acid (Folic Acid 1 Mg Tab) 1 mg PO QAM [facility] Stop: 07/25/24 08:59 Last Admin: 06/28/24 08:51 Dose: 1 mg Furosemide (Furosemide 40 Mg Tab) 40 mg PO DAILY PRN PRN Reason: Edema Stop: 07/26/24 10:39 Heparin Sodium (Porcine) (Heparin Sod 5,000 Unit/0.5 Ml Vial) 5,000 units SQ Q12 [facility] Stop: 07/27/24 20:59 Last Admin: 06/28/24 08:52 Dose: 5,000 units Promethazine HCl (Phenergan) 6.25 mg in 50.25 mls @ 201 mls/hr IV Q6H PRN PRN Reason: Nausea And Vomiting Stop: 07/24/24 23:30 Magnesium Oxide (Magnesium Oxide 400 Mg Tab) 400 mg PO BID [facility] Stop: 07/27/24 08:59 Last Admin: 06/28/24 08:51 Dose: 400 mg Metoprolol Succinate (Metoprolol Succ 25mg Ext Rel Tab) 25 mg PO QAM [facility] Stop: 07/25/24 08:59 Last Admin: 06/28/24 08:52 Dose: Not Given Miscellaneous (Warfarin Pom - Order Awaiting Action) 1 each N/A QS [facility] Stop: 07/27/24 21:59 Last Admin: 06/28/24 15:16 Dose: Not Given Morphine Sulfate (Morphine Sulfate 2 Mg/Ml Carp) 2 mg IV Q3H PRN PRN Reason: Severe Pain (Scale 7, 8, 9,10) Stop: 07/08/24 23:30 Last Admin: 06/25/24 23:19 Dose: 2 mg Naloxone HCl (Naloxone Hcl 0.4 Mg/1 Ml Vial/Carp) 0.1 mg IV UD PRN PRN Reason: Opiate Overdose Stop: 07/25/24 01:22 Nitrofurantoin Macrocrystals (Nitrofurantoin Monohydrate 100 Mg Cap) 100 mg PO AMHS [facility] Stop: 06/28/24 20:59 Last Admin: 06/28/24 08:51 Dose: 100 mg Pantoprazole Sodium (Pantoprazole 40 Mg Tab) 40 mg PO DAILYBB [facility] Stop: 07/25/24 06:29 Last Admin: 06/28/24 05:36 Dose: 40 mg Polyethylene Glycol (Polyethylene (Miralax) 17 Gm Pack) 17 gm PO DAILY PRN PRN Reason: Constipation Stop: 07/28/24 04:07 Last Admin: 06/28/24 07:56 Dose: 17 gm Potassium Chloride (Potassium Chloride 10 Meq Tabcr) 10 meq PO QAM PRN PRN Reason: IF PATIENT TAKES LASIX Stop: 07/26/24 10:39 Senna/Docusate Sodium (Docusate Sodium/Senna 50/8.6mg Tab) 1 tab PO QAM [facility] Stop: 07/28/24 04:09 Last Admin: 06/28/24 05:36 Dose: 1 tab Tamsulosin HCl (Tamsulosin Hcl 0.4 Mg Cap) 0.4 mg PO QAM [facility] Stop: 07/25/24 08:59 Last Admin: 06/28/24 08:51 Dose: 0.4 mg Tramadol HCl (Tramadol Hcl 50 Mg Tablet) 25 - 50 mg PO Q4H PRN PRN Reason: Pain Stop: 07/24/24 23:30 Last Admin: 06/28/24 05:40 Dose: 50 mg Vitamin D (Cholecalciferol 125 Mcg (5,000 Units) Tab) 125 mcg PO QAM [facility] Stop: 07/27/24 08:59 Last Admin: 06/28/24 08:52 Dose: 125 mcg
[2024-06-29 06:55] LABS: Hematocrit (blood only) 25.2 % (42.0-52.0); Hemoglobin 8.8 g/dl (14.0-18.0); Mean Corpuscular Hemoglobin 30.8 pg (25.0-34.0); Mean Corpuscular Hgb Conc 34.9 g/dL (32.0-36.0); Mean Corpuscular Volume 88.1 fL (80.0-100.0); Mean Platelet Volume 9.4 fL (9.4-12.4); Platelet Count 140 K/uL (130-400); RDW Coefficient of Variation 13.2 % (11.5-14.5); RDW Standard Deviation 42.9 fL (36.4-46.3); Red Blood Count 2.86 M/uL (4.70-6.10); White Blood Count 4.43 K/ul (4.8-10.8)
[2024-06-29 07:15] LABS: INR 1.1 (0.9-1.1); Prothrombin Time 11.7 Seconds (9.0-12.0)
[2024-06-29 07:30] LABS: BUN Creatinine Ratio 26.8 (10-20); Calcium 8.1 mg/dl (8.6-10.3); Creatinine Clr Calc Pharmacy 70.2 ml/min; Phosphorus 2.8 mg/dl (2.5-4.9); Potassium 4.3 mmol/L (3.5-5.1)
--- NOTE | 2024-06-29 08:18 | Hospitalist Progress Note ---
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 K on admission Discussed w/ Dr. Paez after surgery and resumed warfarin. As INR subtherapeutic, also added heparin subq for DVT ppx Pt is currently off warfarin as he had a reaction - rash from it. Says this happened before and so he needs his warfarin from home - awaiting for family to bring it in. Plan Patient status post fall with left hip fracture Orthopedics consulted and pt is s/p surg. repair on 06/26/2024 w/ Dr. Paez Scheduled Tylenol for pain control As needed tramadol and morphine for pain control Continue other home medications Asymptomatic pyuria, status post outpatient Macrodantin Rx for recent UTI, negative growth on outpatient urine CS, BPH status post surgery Urine CS, hold off on additional antibiotics for now Acute on Chronic anemia, initially hemoglobin better than baseline on admission Acute blood loss anemia - post op vs dilutional Hgb 9.5 -> 8.8 from yesterday - cont. to monitor Chronic conditions hx PSVT TIA/PVD mild AR DVT prophylaxis. Coumadin resumed, heparin subq Full code Patient's - Ms. Yadi Gramajo, contact #[phone]. Admission and Anticipated Discharge Date Admission Date: June 24, 2024 Subjective Pt seen in follow up of L femoral fracture, now s/p surgical repair Pt seen ambulating in hallway w/ PT using walker. in NAD, awake and alert, overall feeling ok No fevers, chills Family at the bedside and updated yesterday Hgb 9.5 -> 8.8 Pt had a reaction to coumadin - rash - says he needs to take his coumadin from home - per business travel consultant note Discussed w/ pharmacist this AM - it does not look like medication was brought in - pt is not on any coumadin Discussed w/ pt - his brought in wrong med - family will bring it in today Also discussed rehab - pt is agreeable. Review of Systems Review of Systems: All systems reviewed & are unremarkable except as noted in Subjective Physical Exam Physical Exam: Constitutional: thin elderly M in NAD HEENT: Mucous membranes moist. Lungs: Clear to auscultation, decreased, no wheezes rales or rhonchi CV: regular Abdomen: Soft, nontender, nondistended Extremities: No significant edema, mild left hip tenderness to palpation, post- surg. dressings applied - dressings with some blood noted, left shoulder pain w/ movement Neuro: awake, alert, oriented, speech fluent, answers appropriately Results & Data Results & Data Vital Signs (Past 12 Hours) Vital Signs Temp Pulse Resp BP Pulse Ox O2 Del Method 06/29/24 07:09 36.6 C 78 16 113/65 97 Room Air 06/28/24 22:21 36.7 C 74 16 119/66 95 Room Air 06/28/24 22:20 Room Air Laboratory Results 06/29/24 Range/Units 06:28 WBC 4.43 L (4.8-10.8) K/ul RBC 2.86 L (4.70-6.10) M/uL Hgb 8.8 L (14.0-18.0) g/dl Hct 25.2 L (42.0-52.0) % MCV 88.1 (80.0-100.0) fL MCH 30.8 (25.0-34.0) pg MCHC 34.9 (32.0-36.0) g/dL RDW Std Deviation 42.9 (36.4-46.3) fL RDW Coeff of Alex 13.2 (11.5-14.5) % Plt Count 140 (130-400) K/uL MPV 9.4 (9.4-12.4) fL PT 11.7 (9.0-12.0) Seconds INR 1.1 (0.9-1.1) Sodium 136 (136-145) mmol/L Potassium 4.3 (3.5-5.1) mmol/L Chloride 102 (98-107) mmol/L Carbon Dioxide 31 (21-32) mmol/L Anion Gap 3 (3-11) BUN 22 (6-23) mg/dl Creatinine 0.82 (0.6-1.4) mg/dl Est Cr Clr Drug Dosing 70.2 ml/min eGFR 86.62 BUN/Creatinine Ratio 26.8 H (10-20) Glucose 94 (70-99(Fasting)) mg/dl Calcium 8.1 L (8.6-10.3) mg/dl Phosphorus 2.8 (2.5-4.9) mg/dl Magnesium 2.0 (1.7-2.4) mg/dl Medications Administered Current Inpatient Medications Acetaminophen (Acetaminophen 500 Mg Tab) 1,000 mg PO TID [facility] Stop: 07/25/24 13:59 Last Admin: 06/28/24 19:50 Dose: 1,000 mg Acetaminophen (Acetaminophen 325 Mg Tab) 325 mg PO Q6 PRN PRN Reason: Pain Stop: 07/26/24 10:39 Azelastine HCl (Azelastine Hcl 0.1% Nasal 200 Sprays/27,400 Mcg Btl) 2 sprays NA BID PRN PRN Reason: RHINITIS Stop: 07/25/24 01:27 Cyanocobalamin (Cyanocobalamin (B-12) 2,500 Mcg Tablet) 5,000 mcg SL DAILY [facility] Stop: 07/27/24 08:59 Last Admin: 06/28/24 08:51 Dose: 5,000 mcg Diclofenac Sodium (Diclofenac Sod 1% Gel 100 Gm Tube) 2 gm EXT Q6H PRN; Protocol PRN Reason: joint pain Stop: 07/27/24 21:14 Last Admin: 06/28/24 15:20 Dose: 2 gm Finasteride (Finasteride 5 Mg Tab) 5 mg PO QAM [facility] Stop: 07/25/24 08:59 Last Admin: 06/28/24 08:52 Dose: 5 mg Fish Oil ([place]-3 (Purified Fish Oil) 1 Gm Cap) 1 cap PO DAILY [facility] Stop: 07/27/24 08:59 Last Admin: 06/28/24 08:51 Dose: 1 cap Fluticasone Propionate (Fluticasone Propionate Na Spr 16 Gm Btl) 2 sprays NA QAM PRN PRN Reason: Congestion Stop: 07/25/24 01:27 Folic Acid (Folic Acid 1 Mg Tab) 1 mg PO QAM [facility] Stop: 07/25/24 08:59 Last Admin: 06/28/24 08:51 Dose: 1 mg Furosemide (Furosemide 40 Mg Tab) 40 mg PO DAILY PRN PRN Reason: Edema Stop: 07/26/24 10:39 Heparin Sodium (Porcine) (Heparin Sod 5,000 Unit/0.5 Ml Vial) 5,000 units SQ Q12 [facility] Stop: 07/27/24 20:59 Last Admin: 06/28/24 22:20 Dose: 5,000 units Promethazine HCl (Phenergan) 6.25 mg in 50.25 mls @ 201 mls/hr IV Q6H PRN PRN Reason: Nausea And Vomiting Stop: 07/24/24 23:30 Magnesium Oxide (Magnesium Oxide 400 Mg Tab) 400 mg PO BID [facility] Stop: 07/27/24 08:59 Last Admin: 06/28/24 19:50 Dose: 400 mg Metoprolol Succinate (Metoprolol Succ 25mg Ext Rel Tab) 25 mg PO QAM [facility] Stop: 07/25/24 08:59 Last Admin: 06/28/24 08:52 Dose: Not Given Miscellaneous (Warfarin Pom - Order Awaiting Action) 1 each N/A QS [facility] Stop: 07/27/24 21:59 Last Admin: 06/28/24 23:54 Dose: Not Given Morphine Sulfate (Morphine Sulfate 2 Mg/Ml Carp) 2 mg IV Q3H PRN PRN Reason: Severe Pain (Scale 7, 8, 9,10) Stop: 07/08/24 23:30 Last Admin: 06/25/24 23:19 Dose: 2 mg Naloxone HCl (Naloxone Hcl 0.4 Mg/1 Ml Vial/Carp) 0.1 mg IV UD PRN PRN Reason: Opiate Overdose Stop: 07/25/24 01:22 Pantoprazole Sodium (Pantoprazole 40 Mg Tab) 40 mg PO DAILYBB [facility] Stop: 07/25/24 06:29 Last Admin: 06/29/24 05:53 Dose: 40 mg Polyethylene Glycol (Polyethylene (Miralax) 17 Gm Pack) 17 gm PO DAILY PRN PRN Reason: Constipation Stop: 07/28/24 04:07 Last Admin: 06/28/24 07:56 Dose: 17 gm Potassium Chloride (Potassium Chloride 10 Meq Tabcr) 10 meq PO QAM PRN PRN Reason: IF PATIENT TAKES LASIX Stop: 07/26/24 10:39 Senna/Docusate Sodium (Docusate Sodium/Senna 50/8.6mg Tab) 1 tab PO QAM [facility] Stop: 07/28/24 04:09 Last Admin: 06/28/24 05:36 Dose: 1 tab Tamsulosin HCl (Tamsulosin Hcl 0.4 Mg Cap) 0.4 mg PO [facility] Stop: 07/25/24 08:59 Last Admin: 06/28/24 08:51 Dose: 0.4 mg Tramadol HCl (Tramadol Hcl 50 Mg Tablet) 25 - 50 mg PO Q4H PRN PRN Reason: Pain Stop: 07/24/24 23:30 Last Admin: 06/28/24 22:28 Dose: 25 mg Vitamin D (Cholecalciferol 125 Mcg (5,000 Units) Tab) 125 mcg PO [facility] Stop: 07/27/24 08:59 Last Admin: 06/28/24 08:52 Dose: 125 mcg
[2024-06-29] MEDS: WARFARIN SOD PO SCH (16:03)
[2024-06-30 07:26] LABS: Hematocrit (blood only) 25.1 % (42.0-52.0); Hemoglobin 8.7 g/dl (14.0-18.0); Mean Corpuscular Hemoglobin 31.1 pg (25.0-34.0); Mean Corpuscular Hgb Conc 34.7 g/dL (32.0-36.0); Mean Corpuscular Volume 89.6 fL (80.0-100.0); Mean Platelet Volume 9.4 fL (9.4-12.4); Platelet Count 160 K/uL (130-400); RDW Coefficient of Variation 13.2 % (11.5-14.5); RDW Standard Deviation 43.7 fL (36.4-46.3); White Blood Count 4.39 K/ul (4.8-10.8)
[2024-06-30 07:29] LABS: BUN Creatinine Ratio 26.6 (10-20); Calcium 8.3 mg/dl (8.6-10.3); Creatinine Clr Calc Pharmacy 72.9 ml/min; Magnesium 1.9 mg/dl (1.7-2.4); Phosphorus 3.6 mg/dl (2.5-4.9); Potassium 4.4 mmol/L (3.5-5.1)
[2024-06-30 07:38] LABS: INR 1.1 (0.9-1.1); Prothrombin Time 11.4 Seconds (9.0-12.0)
--- NOTE | 2024-06-30 12:11 | Hospitalist Progress Note ---
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 K on admission Discussed w/ Dr. Paez after surgery and resumed warfarin. As INR subtherapeutic, also added heparin subq for DVT ppx Pt was off warfarin as he had a reaction - rash from it. Says this happened before and so he needs his warfarin from home - Family brought it in yesterday - 06/29/23 Plan Patient status post fall with left hip fracture Orthopedics consulted and pt is s/p surg. repair on 06/26/2024 w/ Dr. Paez Scheduled Tylenol for pain control As needed tramadol and morphine for pain control Continue other home medications Asymptomatic pyuria, status post outpatient Macrodantin Rx for recent UTI, negative growth on outpatient urine CS, BPH status post surgery Urine CS, hold off on additional antibiotics for now Acute on Chronic anemia, initially hemoglobin better than baseline on admission Acute blood loss anemia - post op vs dilutional Hgb 8.7 stable from yesterday - cont. to monitor Chronic conditions hx PSVT TIA/PVD mild AR DVT prophylaxis. Coumadin resumed, heparin subq Full code Patient's - Ms. Yadi Gramajo, contact #[phone]. Admission and Anticipated Discharge Date Admission Date: June 24, 2024 Subjective Pt seen in follow up of L femoral fracture, now s/p surgical repair Pt seen ambulating in hallway w/ PT using walker. in NAD, awake and alert, overall feeling ok No fevers, chills Hgb stable from yesterday Pt had a reaction to coumadin - rash - says he needs to take his coumadin from home - per hotel valet attendant note Family brought in his coumadin from home yesterday Also discussed rehab - pt is agreeable. Discussed w/ CM - likely able to dc [facility] Review of Systems Review of Systems: All systems reviewed & are unremarkable except as noted in Subjective Physical Exam Physical Exam: Constitutional: thin elderly M in NAD HEENT: Mucous membranes moist. Lungs: Clear to auscultation, decreased, no wheezes rales or rhonchi CV: regular Abdomen: Soft, nontender, nondistended Extremities: No significant edema, mild left hip tenderness to palpation, post- surg. dressings applied - dressings with some blood noted, left shoulder pain w/ movement Neuro: awake, alert, oriented, speech fluent, answers appropriately Results & Data Results & Data Vital Signs (Past 12 Hours) Vital Signs Temp Pulse Pulse Pulse Resp BP BP 06/30/24 11:26 36.4 C L 63 17 95/57 L 06/30/24 07:13 36.3 C L 69 18 124/55 L 06/30/24 05:24 37.0 C 77 14 166/73 H Pulse Ox O2 Del Method 06/30/24 11:26 100 Room Air 06/30/24 07:13 99 Room Air 06/30/24 05:24 99 Room Air Laboratory Results 06/30/24 Range/Units 06:41 WBC 4.39 L (4.8-10.8) K/ul RBC 2.80 L (4.70-6.10) M/uL Hgb 8.7 L (14.0-18.0) g/dl Hct 25.1 L (42.0-52.0) % MCV 89.6 (80.0-100.0) fL MCH 31.1 (25.0-34.0) pg MCHC 34.7 (32.0-36.0) g/dL RDW Std Deviation 43.7 (36.4-46.3) fL RDW Coeff of Alex 13.2 (11.5-14.5) % Plt Count 160 (130-400) K/uL MPV 9.4 (9.4-12.4) fL PT 11.4 (9.0-12.0) Seconds INR 1.1 (0.9-1.1) Sodium 135 L (136-145) mmol/L Potassium 4.4 (3.5-5.1) mmol/L Chloride 100 (98-107) mmol/L Carbon Dioxide 33 H (21-32) mmol/L Anion Gap 2 L (3-11) BUN 21 (6-23) mg/dl Creatinine 0.79 (0.6-1.4) mg/dl Est Cr Clr Drug Dosing 72.9 ml/min eGFR 87.60 BUN/Creatinine Ratio 26.6 H (10-20) Glucose 89 (70-99(Fasting)) mg/dl Calcium 8.3 L (8.6-10.3) mg/dl Phosphorus 3.6 (2.5-4.9) mg/dl Magnesium 1.9 (1.7-2.4) mg/dl Medications Administered Current Inpatient Medications Acetaminophen (Acetaminophen 500 Mg Tab) 1,000 mg PO TID [facility] Stop: 07/25/24 13:59 Last Admin: 06/30/24 09:03 Dose: 1,000 mg Acetaminophen (Acetaminophen 325 Mg Tab) 325 mg PO Q6 PRN PRN Reason: Pain Stop: 07/26/24 10:39 Azelastine HCl (Azelastine Hcl 0.1% Nasal 200 Sprays/27,400 Mcg Btl) 2 sprays NA BID PRN PRN Reason: RHINITIS Stop: 07/25/24 01:27 Cyanocobalamin (Cyanocobalamin (B-12) 2,500 Mcg Tablet) 5,000 mcg SL DAILY [facility] Stop: 07/27/24 08:59 Last Admin: 06/30/24 08:52 Dose: 5,000 mcg Diclofenac Sodium (Diclofenac Sod 1% Gel 100 Gm Tube) 2 gm EXT Q6H PRN; Protocol PRN Reason: joint pain Stop: 07/27/24 21:14 Last Admin: 06/30/24 05:32 Dose: 2 gm Finasteride (Finasteride 5 Mg Tab) 5 mg PO QAM [facility] Stop: 07/25/24 08:59 Last Admin: 06/30/24 08:52 Dose: 5 mg Fish Oil ([place]-3 (Purified Fish Oil) 1 Gm Cap) 1 cap PO DAILY [facility] Stop: 07/27/24 08:59 Last Admin: 06/30/24 08:53 Dose: 1 cap Fluticasone Propionate (Fluticasone Propionate Na Spr 16 Gm Btl) 2 sprays NA QAM PRN PRN Reason: Congestion Stop: 07/25/24 01:27 Folic Acid (Folic Acid 1 Mg Tab) 1 mg PO QAM [facility] Stop: 07/25/24 08:59 Last Admin: 06/30/24 08:53 Dose: 1 mg Furosemide (Furosemide 40 Mg Tab) 40 mg PO DAILY PRN PRN Reason: Edema Stop: 07/26/24 10:39 Heparin Sodium (Porcine) (Heparin Sod 5,000 Unit/0.5 Ml Vial) 5,000 units SQ Q12 [facility] Stop: 07/27/24 20:59 Last Admin: 06/30/24 08:54 Dose: 5,000 units Promethazine HCl (Phenergan) 6.25 mg in 50.25 mls @ 201 mls/hr IV Q6H PRN PRN Reason: Nausea And Vomiting Stop: 07/24/24 23:30 Magnesium Oxide (Magnesium Oxide 400 Mg Tab) 400 mg PO BID [facility] Stop: 07/27/24 08:59 Last Admin: 06/30/24 08:53 Dose: 400 mg Metoprolol Succinate (Metoprolol Succ 25mg Ext Rel Tab) 25 mg PO QAM [facility] Stop: 07/25/24 08:59 Last Admin: 06/30/24 08:53 Dose: 25 mg Morphine Sulfate (Morphine Sulfate 2 Mg/Ml Carp) 2 mg IV Q3H PRN PRN Reason: Severe Pain (Scale 7, 8, 9,10) Stop: 07/08/24 23:30 Last Admin: 06/25/24 23:19 Dose: 2 mg Naloxone HCl (Naloxone Hcl 0.4 Mg/1 Ml Vial/Carp) 0.1 mg IV UD PRN PRN Reason: Opiate Overdose Stop: 07/25/24 01:22 Pantoprazole Sodium (Pantoprazole 40 Mg Tab) 40 mg PO DAILYBB [facility] Stop: 07/25/24 06:29 Last Admin: 06/30/24 05:26 Dose: 40 mg Polyethylene Glycol (Polyethylene (Miralax) 17 Gm Pack) 17 gm PO DAILY PRN PRN Reason: Constipation Stop: 07/28/24 04:07 Last Admin: 06/29/24 09:00 Dose: 17 gm Potassium Chloride (Potassium Chloride 10 Meq Tabcr) 10 meq PO QAM PRN PRN Reason: IF PATIENT TAKES LASIX Stop: 07/26/24 10:39 Senna/Docusate Sodium (Docusate Sodium/Senna 50/8.6mg Tab) 1 tab PO QAM [facility] Stop: 07/28/24 04:09 Last Admin: 06/30/24 09:02 Dose: 1 tab Tamsulosin HCl (Tamsulosin Hcl 0.4 Mg Cap) 0.4 mg PO QAM [facility] Stop: 07/25/24 08:59 Last Admin: 06/30/24 08:53 Dose: 0.4 mg Tramadol HCl (Tramadol Hcl 50 Mg Tablet) 25 - 50 mg PO Q4H PRN PRN Reason: Pain Stop: 07/24/24 23:30 Last Admin: 06/30/24 02:59 Dose: 50 mg Vitamin D (Cholecalciferol 125 Mcg (5,000 Units) Tab) [facility] Stop: 07/27/24 08:59 Last Admin: 06/30/24 08:53 Dose: 125 mcg Warfarin Sodium (Warfarin Sod 5 Mg Tab (Pom)) 5 mg PO TODAY@1600 [facility] Stop: 06/30/24 16:00 Last Admin: 06/29/24 16:03 Dose: 5 mg Warfarin Sodium (Warfarin Sod 5 Mg Tab) 5 mg PO DAILY [facility] Stop: 07/31/24 08:59
[2024-07-01 06:38] LABS: Hematocrit (blood only) 27.8 % (42.0-52.0); Hemoglobin 9.4 g/dl (14.0-18.0)
[2024-07-01 07:03] LABS: INR 1.2 (0.9-1.1); Prothrombin Time 12.5 Seconds (9.0-12.0)
[2024-07-01] MEDS: WARFARIN SOD 5 MG TAB PO SCH (08:15)
--- NOTE | 2024-07-01 08:25 | Orthopedic Progress Note ---
Date of Service July 01, 2024 Assessment & Plan (1) Contusion of left shoulder, initial encounter: (2) Closed fracture of neck of left femur: Having some left hip pain but reasonably controlled. Ambulating with PT. d/c planning to either [facility] or [facility]. He is on coumadin for dvt prophylaxis. Should follow up with Dr Paez 2-3 weeks from surgery. He did discuss getting a shoulder injection at that visit with Dr Paez if needed. Subjective .84 year old patient POD 5 from left anterior ruth for fracture. Had some hip pain this morning and had some tramadol. He has been ambulating with assistance. Still having some left upper arm pain. Review of Systems All systems reviewed & are unremarkable except as noted in HPI & below. Physical Exam alert and oriented. NAD +ecchymosis of left upper extremity around the elbow. Left hip dressing intact. Some dried blood under dressing. Able to dorsiflex and plantarflex. NVI . Results & Data Results & Data Laboratory Results . Diagnostic Findings . PG Care Time/CCT Total # of Minutes Spent Total Time Spent with Patient: Total time spent is greater than 50% in coordination of care (as documented) at patient's floor/unit and/or counseling patient: Coding Level of Care Code 10600 Post Operative Follow-Up Diagnoses Contusion of left shoulder, initial encounter S40.012A Closed fracture of neck of left femur S72.002A
--- NOTE | 2024-07-01 15:08 | Hospitalist Progress Note ---
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 K on admission Discussed w/ Dr. Paez after surgery and resumed warfarin. As INR subtherapeutic, also added heparin subq for DVT ppx Pt was off warfarin as he had a reaction - rash from it. Says this happened before and so he needs his warfarin from home - Family brought it in on - 06/29/23 Plan Patient status post fall with left hip fracture Orthopedics consulted and pt is s/p surg. repair on 06/26/2024 w/ Dr. Paez Scheduled Tylenol for pain control As needed tramadol and morphine for pain control Continue other home medications Asymptomatic pyuria, status post outpatient Macrodantin Rx for recent UTI, negative growth on outpatient urine CS, BPH status post surgery Urine CS, hold off on additional antibiotics for now Acute on Chronic anemia, initially hemoglobin better than baseline on admission Acute blood loss anemia - post op vs dilutional Hgb 9.4 stable/ improved from yesterday - cont. to monitor Chronic conditions hx PSVT TIA/PVD mild AR DVT prophylaxis. Coumadin resumed, heparin subq Full code Patient's - Ms. Yadi Gramajo, contact #[phone]. Admission and Anticipated Discharge Date Admission Date: June 24, 2024 Subjective Pt seen in follow up of L femoral fracture, now s/p surgical repair Pt seen ambulating in hallway w/ PT using walker. in NAD, awake and alert, overall feeling ok No fevers, chills Hgb stable Pt is on home coumadin (otherwise gets rash) CM involved in DC planning Review of Systems Review of Systems: All systems reviewed & are unremarkable except as noted in Subjective Physical Exam Physical Exam: Constitutional: thin elderly M in NAD HEENT: Mucous membranes moist. Lungs: Clear to auscultation, decreased, no wheezes rales or rhonchi CV: regular Abdomen: Soft, nontender, nondistended Extremities: No significant edema, mild left hip tenderness to palpation, post- surg. dressings applied - dressings with some blood noted, left shoulder pain w/ movement Neuro: awake, alert, oriented, speech fluent, answers appropriately Results & Data Results & Data Vital Signs (Past 12 Hours) Vital Signs Temp Pulse Resp BP Pulse Ox O2 Del Method 07/01/24 09:04 Room Air 07/01/24 07:37 36.9 C 75 18 156/80 H 98 Room Air Laboratory Results 07/01/24 Range/Units 06:22 Hgb 9.4 L (14.0-18.0) g/dl Hct 27.8 L (42.0-52.0) % PT 12.5 H (9.0-12.0) Seconds INR 1.2 H (0.9-1.1) Medications Administered Current Inpatient Medications Acetaminophen (Acetaminophen 500 Mg Tab) 1,000 mg PO TID CONRAD Stop: 07/25/24 13:59 Last Admin: 07/01/24 14:59 Dose: 1,000 mg Acetaminophen (Acetaminophen 325 Mg Tab) 325 mg PO Q6 PRN PRN Reason: Pain Stop: 07/26/24 10:39 Azelastine HCl (Azelastine Hcl 0.1% Nasal 200 Sprays/27,400 Mcg Btl) 2 sprays NA BID PRN PRN Reason: RHINITIS Stop: 07/25/24 01:27 Cyanocobalamin (Cyanocobalamin (B-12) 2,500 Mcg Tablet) 5,000 mcg SL DAILY CONRAD Stop: 07/27/24 08:59 Last Admin: 07/01/24 08:16 Dose: 5,000 mcg Diclofenac Sodium (Diclofenac Sod 1% Gel 100 Gm Tube) 2 gm EXT Q6H PRN; Protocol PRN Reason: joint pain Stop: 07/27/24 21:14 Last Admin: 07/01/24 14:59 Dose: 2 gm Finasteride (Finasteride 5 Mg Tab) 5 mg PO QAM CONRAD Stop: 07/25/24 08:59 Last Admin: 07/01/24 08:16 Dose: 5 mg Fish Oil (Rentz-3 (Purified Fish Oil) 1 Gm Cap) 1 cap PO DAILY CONRAD Stop: 07/27/24 08:59 Last Admin: 06/30/24 08:53 Dose: 1 cap Fluticasone Propionate (Fluticasone Propionate Na Spr 16 Gm Btl) 2 sprays NA QAM PRN PRN Reason: Congestion Stop: 07/25/24 01:27 Folic Acid (Folic Acid 1 Mg Tab) 1 mg PO QAM [facility] Stop: 07/25/24 08:59 Last Admin: 07/01/24 08:14 Dose: 1 mg Furosemide (Furosemide 40 Mg Tab) 40 mg PO DAILY PRN PRN Reason: Edema Stop: 07/26/24 10:39 Heparin Sodium (Porcine) (Heparin Sod 5,000 Unit/0.5 Ml Vial) 5,000 units SQ Q12 [facility] Stop: 07/27/24 20:59 Last Admin: 07/01/24 08:30 Dose: 5,000 units Promethazine HCl (Phenergan) 6.25 mg in 50.25 mls @ 201 mls/hr IV Q6H PRN PRN Reason: Nausea And Vomiting Stop: 07/24/24 23:30 Magnesium Oxide (Magnesium Oxide 400 Mg Tab) 400 mg PO BID [facility] Stop: 07/27/24 08:59 Last Admin: 07/01/24 08:14 Dose: 400 mg Metoprolol Succinate (Metoprolol Succ 25mg Ext Rel Tab) [facility] [place] Stop: 07/25/24 08:59 Last Admin: 07/01/24 08:14 Dose: 25 mg Morphine Sulfate (Morphine Sulfate 2 Mg/Ml Carp) 2 mg IV Q3H PRN PRN Reason: Severe Pain (Scale 7, 8, 9,10) Stop: 07/08/24 23:30 Last Admin: 06/25/24 23:19 Dose: 2 mg Naloxone HCl (Naloxone Hcl 0.4 Mg/1 Ml Vial/Carp) 0.1 mg IV UD PRN PRN Reason: Opiate Overdose Stop: 07/25/24 01:22 Pantoprazole Sodium (Pantoprazole 40 Mg Tab) 40 mg PO DAILYBB [facility] Stop: 07/25/24 06:29 Last Admin: 07/01/24 05:51 Dose: 40 mg Polyethylene Glycol (Polyethylene (Miralax) 17 Gm Pack) 17 gm PO DAILY PRN PRN Reason: Constipation Stop: 07/28/24 04:07 Last Admin: 07/01/24 08:32 Dose: 17 gm Potassium Chloride (Potassium Chloride 10 Meq Tabcr) 10 meq PO QAM PRN PRN Reason: IF PATIENT TAKES LASIX Stop: 07/26/24 10:39 Senna/Docusate Sodium (Docusate Sodium/Senna 50/8.6mg Tab) 1 tab PO QAM [facility] Stop: 07/28/24 04:09 Last Admin: 07/01/24 08:31 Dose: 1 tab Tamsulosin HCl (Tamsulosin Hcl 0.4 Mg Cap) [facility] [place] Stop: 07/25/24 08:59 Last Admin: 07/01/24 08:14 Dose: 0.4 mg Tramadol HCl (Tramadol Hcl 50 Mg Tablet) 25 - 50 mg PO Q4H PRN PRN Reason: Pain Stop: 07/24/24 23:30 Last Admin: 07/01/24 07:43 Dose: 50 mg Vitamin D (Cholecalciferol 125 Mcg (5,000 Units) Tab) 125 mcg PO QAM [facility] Stop: 07/27/24 08:59 Last Admin: 07/01/24 08:15 Dose: 125 mcg Warfarin Sodium (Warfarin Sod 5 Mg Tab) 5 mg PO DAILY [facility] Stop: 07/31/24 08:59 Last Admin: 07/01/24 08:15 Dose: 5 mg
[2024-07-01 15:13] VITALS: RESP 16
[2024-07-02 06:53] LABS: Hematocrit (blood only) 28.5 % (42.0-52.0); Hemoglobin 9.7 g/dl (14.0-18.0)
[2024-07-02 07:15] LABS: INR 1.4 (0.9-1.1); Prothrombin Time 14.4 Seconds (9.0-12.0)
[2024-07-02 07:18] VITALS: TEMP 97.5; O2SAT 99
--- NOTE | 2024-07-02 10:00 | Orthopedic Progress Note ---
Date of Service July 02, 2024 Assessment & Plan (1) Contusion of left shoulder, initial encounter: (2) Closed fracture of neck of left femur: Having some left hip pain but reasonably controlled. Ambulating with PT. d/[facility]. He is on coumadin for dvt prophylaxis. Should follow up with Dr Paez 2-3 weeks from surgery. He did discuss getting a shoulder injection at that visit with Dr Paez if needed. Subjective . Raghavendra was seen and evaluated bedside this morning resting comfortably in no apparent distress. He notes that his pain is well-controlled at this point which is mild discomfort occasionally to the left leg. He has been up and out of bed with no significant issues working with physical therapy. He denies any other concerns today. Review of Systems All systems reviewed & are unremarkable except as noted in HPI & below. Physical Exam . Focused exam of the left hip shows well-approximated surgical incision with intact jersey with intact dressings. No signs of active bleeding, discharge, or signs of infection. Calf soft nontender to palpation. Negative Homans' sign. Intact plantarflexion and dorsiflexion of the left ankle. +2 DP and PT pulse. Less than 2-second capillary refill. Normal sensation. Neurovascular intact. Results & Data Results & Data Laboratory Results . Diagnostic Findings . PG Care Time/CCT Total # of Minutes Spent Total Time Spent with Patient: Total time spent is greater than 50% in coordination of care (as documented) at patient's floor/unit and/or counseling patient: Coding Level of Care Code 00167 Post Operative Follow-Up Diagnoses Contusion of left shoulder, initial encounter S40.012A Closed fracture of neck of left femur S72.002A
--- NOTE | 2024-07-02 12:53 | Discharge Summary ---
Date of Service July 02, 2024 Admission HPI Per Admitting Provider History obtained from patient and [id number]. 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 Last confinement February 2023 for dizziness symptoms attributed to vertigo. 2 weeks ago, patient noted dysuria symptoms. Symptoms improved after outpatient Macrodantin Rx. Outpatient urine no growth. Patient was trying to wind up a hose in his garage today. Patient fell down as he bumped up the holes. Fall on the left side hitting hip and shoulder. No head trauma, no chest pain, no SOB, no LOC. Achy left hip and shoulder pain. Unable to get up. Highest SBP of 160s at the ER. 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 Admission Exam Per Admitting Provider GENERAL: Comfortable, pleasant, no respiratory distress SKIN: Normal color, warm HEENT: [place] palpebral conjunctivae, no ptosis, dry buccal mucosa NECK : Supple, no tenderness CHEST : Decreased breath sounds, no tenderness HEART : Bradycardic, no obvious murmurs ABDOMEN: Some distention, nontender EXTREMITIES : Left hip tenderness, no other conspicuous deformities noted NEUROLOGIC : Coherent, no facial asymmetry, no other gross focality Principal Diagnosis Closed fracture of neck of left femur Fall from standing Contusion of left shoulder, initial encounter Discharge Exam Constitutional: thin elderly M in NAD HEENT: Mucous membranes moist. Lungs: Clear to auscultation, decreased, no wheezes rales or rhonchi CV: regular Abdomen: Soft, nontender, nondistended Extremities: No significant edema, mild left hip tenderness to palpation, post- surg. dressings applied - dressings with some dry blood noted, left shoulder pain w/ movement Neuro: awake, alert, oriented, speech fluent, answers appropriately Discharge Data Allergies Allergy/AdvReac Type Severity Reaction Status Date / Time vancomycin Allergy Mild red, itchy Verified 06/24/24 23:54 Sulfa (Sulfonamide Allergy Unknown "Everyone Verified 06/24/24 23:54 Antibiotics) in family" Consultations 06/24/24 23:15 ED Decision to Admit Stat 06/25/24 01:23 Consult Orthopedic Surgery Routine Procedures Performed Operation Date: 06/26/24 07:30 Actual Procedures p Left Hip Hemiarthroplasty Anterior Approach, Cemented - Pato Paez DO Ordered Studies 06/24/24 20:29 CT cervical spine wo con Stat FINDINGS: Vertebrae: No acute fracture. Maintenance of height of the vertebral bodies. No subluxation. Discs/spinal canal/neural foramina: Mild multilevel degenerative changes. Soft tissues: Prevertebral soft tissues are unremarkable. IMPRESSION: No acute post-traumatic abnormality. CT head/brain wo con Stat FINDINGS: Brain: Age-appropriate generalized atrophy. No acute stroke. 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 Moderate supratentorial periventricular and subcortical white matter changes. No acute hemorrhage or abnormal extra-axial fluid collection. Ventricles: No hydrocephalus. No midline shift. Bones/joints: Unremarkable. No acute fracture. Soft tissues: Unremarkable. Sinuses: Bilateral maxillary sinus air-fluid levels. Bilateral ethmoid air cell and left frontal sinus air-fluid levels. Minimal fluid in the right vanessa-sphenoid sinus. IMPRESSION: No acute post-traumatic intracranial abnormality. Diffuse paranasal sinus air-fluid levels. 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 K on admission Discussed w/ Dr. Paez (orthopedic surgeon) after surgery and resumed warfarin. As INR subtherapeutic, also added heparin for DVT ppx Pt was off warfarin as he had a reaction - rash from it. Pt reports this happened before and so he needs his warfarin from home - Family brought it in on - 06/29/23 Current INR 1.4. Cont. to monitor INR daily until therapeutic. Cont. w/ heparin for DVT ppx while INR subtherapeutic. Plan Patient status post fall with left hip fracture Orthopedics consulted and pt is s/p surg. repair on 06/26/2024 w/ Dr. Paez Scheduled Tylenol for pain control As needed tramadol and morphine for pain control Continue other home medications Asymptomatic pyuria, status post outpatient Macrodantin Rx for recent UTI, negative growth on outpatient urine CS, BPH status post surgery Urine CS, hold off on additional antibiotics for now Acute on Chronic anemia, initially hemoglobin better than baseline on admission Acute blood loss anemia - post op vs dilutional Hgb 9.7 stable/ improved from yesterday - cont. to monitor Chronic conditions hx PSVT TIA/PVD mild AR Total Time Total Time Spent Total Time Spent (In Minutes): 40 Discharge Plan Discharge Items Patient Disposition: Transfer [facility] Reason For Visit: AF, HIP FX Discharge Diagnosis: Closed fracture of neck of left femur Fall from standing Contusion of left shoulder, initial encounter Activity: Per Instructions section Non-emergency contact: Primary Care Provider and Surgeon Call non-emergency contact if: you have any medication questions and your symptoms worsen Follow-up/Referrals: Xiomara Kearns MD [Primary Care Provider] - Diet: Regular Addtl Attending Provider Instructions: Follow up with primary care doctor and orthopedic surgeon. Read instructions from your surgeon in detail below. Check INR daily until INR therapeutic. Continue taking your home coumadin (warfarin). While INR is subtherapeutic, make sure to use heparin to prevent blood clots. Monitor H&H. Addtl Cash Room Clerk Provider Instructions: ORTHOPEDIC INSTRUCTIONS Hip Hemiarthroplasty Activity and Therapy Recommendations: 1. You were shown a series of exercises in the hospital. Do these exercises three times each day if you are able. 2. Get up and walk several times each day if you are capable. Make sure you have assistance is needed. For the first four weeks, try not to stand or walk for more than one hour at a time. If you do stand or walk for more than one hour, you will not hurt anything, but your leg will likely swell. 3. As you feel comfortable, you may change from the walker or crutches to a cane and then to independent walking if you are able. Please be safe. Medications: 1. Narcotic You will likely be sent from the hospital with the narcotic pain medication that worked best throughout your stay. 2. Continue taking your Coumadin as prescribed. 3. Other medications may be given for specific circumstances. If you have any questions, please call the office at [phone]. 4. Resume previous home medications unless otherwise instructed TEDs/Elastic Stockings: The white elastic stockings help limit swelling and prevent blood clots from forming in your legs. The more you wear them, the more they work. Wear them for six weeks. Dressing Care: Leave the Silverlon dressing in place for 7 days. After 7 days you may remove the dressing. If the incision is not draining then you may leave the jersey open to air. If there is a little bit of drainage or if the jersey are getting stuck on your clothing then cover the incision with a dry dressing. The jersey will be removed at your 2 week follow-up appointment. Showering: You may shower with the Silverlon dressing in place. Do not let the shower spray hit the dressing directly. Pat the Silverlon dressing dry. If the dressing becomes wet underneath, then simply remove the dressing. Keep the incision dry until you are 7 days out from the day of surgery. After 7 days you may remove the Silverlon dressing and shower with the jersey exposed. Let soapy water run over the jersey and pat them dry. Do not scrub or soak the incision. Diet: You may resume your previous diet. Things To Watch For: 1. Drainage from the incision site that occurs more than one week after your surgery. 2. Increased redness at the incision site. 3. Fever above 102 degrees Fahrenheit. 4. Unusual chest pain or shortness of breath. 5. Call [facility] at with any of the above problems Follow-Up Visit: Follow-up with Dr. Paez's office 2-3 weeks after your day of surgery. We will remove your jersey and answer any questions. If you have any additional questions or concerns, Dr Paez is usually in the office at the same time and will be available Please call the office to set up an appointment for a time that works for you. Pending Studies at Discharge: No Stand-Alone Forms: My [facility] Skilled Items Patient informed of condition?: Yes DNR: No Discharge Level of Care: Skilled Communicable Disease: No Discharge Prognosis: Stable Lines: None Urinary Catheter: Yes Medications and DC Order Prescriptions: New heparin, porcine (PF) 5,000 unit/0.5 mL Syringe 5,000 unit subcut Q12 3 Days Qty: 3 0RF sennosides-docusate sodium [Senokot-S] 8.6-50 mg Tablet 1 tab PO QAM Qty: 7 0RF tramadol 50 mg Tablet 25 mg PO Q4H PRN (Reason: pain) Qty: 7 0RF Continued furosemide [Lasix] 40 mg Tablet 40 mg PO DAILY PRN (Reason: fluid accumulation or wt gain) warfarin [Jantoven] 5 mg Tablet 5 - 7.5 mg PO UD Rx Instructions: take 7.5mg (1.5 tablets) on monday, and saturdays; take 5mg ( 1 tablet) all other days or as dircted by anticoagulation clinic azelastine 137 mcg (0.1 %) Aerosol,[place] 2 spray INTRANASAL BID PRN (Reason: RHINITIS) fluticasone propionate [Flonase Allergy Relief] 50 mcg/actuation [place],Suspension 2 spray INTRANASAL QAM PRN (Reason: Congestion) cholecalciferol (vitamin D3) [Vitamin D3] 5,000 unit Tablet 5,000 unit PO QAM magnesium oxide 400 mg Capsule 400 mg PO QAM folic acid 1 mg Tablet 1 mg PO QAM cyanocobalamin (vitamin B-12) [Vitamin B-12] 5,000 mcg Tablet, Sublingual 5,000 mcg SUBLINGUAL DAILY omeprazole 20 mg capsule,delayed release(DR/EC) 20 mg PO DAILYBB metoprolol succinate 25 mg tablet extended release 24 hr 37.5 mg PO QAM tamsulosin 0.4 mg capsule 0.4 mg PO QAM finasteride 5 mg tablet 5 mg PO QAM potassium chloride 10 mEq tablet,ER particles/crystals 10 meq PO QAM PRN (Reason: WHEN TAKING FUROSEMIDE) [id number] [krill oil] 1,667-192-62-80 mg Capsule 1 cap PO DAILY acetaminophen 325 mg Tablet 325 mg PO Q6 PRN (Reason: Pain) Discontinued nitrofurantoin monohyd/m-cryst 100 mg capsule 100 mg PO [facility] Rx Instructions: ordered 06/14/24 take for 12 days Discharge Orders: Discharge Order (Routine); Ordered 07/02/24 Ordered By: Jordy Justice Admission Data Admit Date/Time: 06/24/24 23:54 Attending Provider: Jordy Justice Admit Provider: Colin Nicholson Primary Care Provider: Xiomara Kearns Other Providers: Dmitry Berumen; Colin Nicholson; Pato Paez; [facility]; [facility]
[2024-07-02 15:11] VITALS: BP 105/63; PULSE 63
== END 2024-07-02 15:56 | DRG 522 ==
LOC: ED 20:14 → SUATTDRO 23:54 → EDINP 23:54 → 3E 06-25 17:34